=== PATIENT | male | born 1980 | race Caucasian/White ===

== ENCOUNTER 2019-02-23 11:02 | Emergency (ER) | payer MEDICAID, SELFPAY ==
[2019-02-23] VITALS (32 sets, daily range): BP systolic 104–118; BP diastolic 36–75; PULSE 47–81; RESP 11–32; TEMP 36.5; O2SAT 95–98
[2019-02-23] MEDS: Lidocaine 5% Patch 1 PATCH TP (11:09)
--- NOTE | 2019-02-23 11:21 | W.ED.GENAD ---
Discharge Plan Discharge Details Chief Complaint: FlankPain Primary Care Provider: Emelia Head ED Provider: Minh Epperson Home Meds and New Rx's Prescriptions: No Action dexmethylphenidate [Focalin XR] 30 MG capsule,ER biphasic 50-50 30 mg PO DAILY RF: 0 gabapentin 300 MG capsule 300 mg PO BID RF: 0 buprenorphine-naloxone [Suboxone] 1 EACH film 8 mg Sublingual DAILY RF: 0 Medical Decision Making 11:25 --38-year-old male here with left lateral flank and chest wall pain after mechanical fall from standing to the floor last night. Patient is quite tender along his left lateral lower ribs. Also notably uncomfortable on deep palpation of his left upper quadrant. Patient does have ecchymosis left lower back. Given Willis Collado sign and tenderness, I am concerned about retroperitoneal hemorrhage. Plan to obtain CT of the chest abdomen and pelvis to assess for acute traumatic surgical pathology. Lidocaine applied. We will give Tylenol. 14:05 --CT of the chest and abdomen pelvis interpreted by radiology: IMPRESSION: Fracture of the left eleventh rib. No evidence of pneumothorax or internal organ injury. Mild compression of anterosuperior endplate of T 9 appears old. Patient reassessed: He has remained stable here in the emergency department. Diagnostic results were reviewed with the patient. Patient will be provided incentive spirometry. Patient instructed to take Tylenol and ibuprofen. I will prescribe lidocaine patches. Patient was encouraged to follow-up with his primary care physician. Usual and customary discharge instructions were provided. Lab Data Lab results reviewed: Yes I reviewed the patient's lab results. Laboratory Tests Range/Units 02/23/19 02/23/19 11:35 13:35 WBC (4.4-10.8) k/cumm 5.56 RBC (4.50-6.00) m/cumm 4.93 Hgb (13.5-17.5) g/dL 14.5 Hct (40.0-50.0) % 42.3 MCV (80-95) fL 85.8 MCH (27.0-33.0) pg 29.4 MCHC (32.0-36.0) g/dL 34.3 RDW (11.8-14.1) % 12.9 Plt Count (130-400) x1000/uL 147 MPV (8.0-11.0) fL 9.7 Immature Gran % 0.4 Neutrophils % 49.2 Lymphocytes % 28.8 Monocytes % 16.0 Eosinophils % 4.7 Basophils % 0.9 Absolute Neutrophils (1.2-6.7) k/cumm 2.74 Absolute Lymphocytes (1.2-3.4) k/cumm 1.60 Absolute Monocytes (0.11-0.7) k/cumm 0.89 H Absolute Eosinophils (0.0-0.7) k/cumm 0.26 Absolute Basophils (0.0-0.2) k/cumm 0.05 Sodium (136-145) mmol/L 141 Potassium (3.5-5.1) mmol/L 4.3 Chloride (98-107) mmol/L 104 Carbon Dioxide (21.0-32.0) mmol/L 28.0 Anion Gap (3-11) mmol/L 9.0 BUN (7-18) mg/dL 11 Creatinine (0.70-1.30) mg/dL 1.03 Estimated GFR/1.73 m2 (mL/min/1.73m2) >= 60.00 Glucose (70-100) mg/dL 95 Calcium (8.5-10.1) mg/dL 8.9 Total Bilirubin (0.2-1.0) mg/dL 0.6 AST (15-37) U/L 16 ALT (12-78) U/L 25 Alkaline Phosphatase (46-116) U/L 88 Total Protein (6.4-8.2) g/dL 6.9 Albumin (3.4-5.0) g/dL 3.6 HPI General Mode of arrival: EMS. Date/Time Provider Initiated Documentation: 02/23/19 11:04. Limitations to Documentation: no limitations. Information obtained by: patient and EMS. HPI Narrative: 38-year-old male presents with chief complaint of left lateral chest wall pain. Pain started last night when he tripped over a rug in the bathroom and fell and hit his left lateral chest wall on the bathtub. Pain is severe. Pain worse with deep inspiration and on palpation of his left lateral chest. He has some associated shortness of breath because is not able to take a deep breath. He denies abdominal pain. No head injury. No other injuries. Related Data Home Medications Medication Instructions Recorded Confirmed dexmethylphenidate [Focalin XR] 30 mg PO DAILY tab-cap 02/17/18 03/23/18 buprenorphine-naloxone [Suboxone] 8 mg SUBLINGUAL DAILY 03/17/18 03/23/18 gabapentin 300 mg PO BID 03/17/18 03/23/18 Allergies Allergy/AdvReac Type Severity Reaction Status Date / Time No Known Allergies Allergy Unverified 03/17/18 11:47 General Stated Complaint: FlankPain TIMOTHY: 3 Review of Systems Review of Systems All systems reviewed & are unremarkable except as noted in HPI and below Respiratory Reports as per HPI Gastrointestinal Denies abdominal pain PFSH Social History Smoking/Tobacco Use Status: Current every day Tobacco Type: cigarettes Drug use: Daily Substance use type: does not use Do you feel safe in your relationship?: Yes Exam Const General: cooperative and no acute distress HENMT Head: normocephalic and atraumatic Mouth: moist mucous membranes Eyes EOM: EOM intact bilaterally Neck Neck: trachea midline and supple Chest Chest: no crepitus and tenderness rib (Left lower lateral ribs) Resp Auscultation: clear to auscultation bilaterally, no rales, no rhonchi and no wheezes Cardio Jugular venous pressure: no JVD Rate: regular rate and not tachycardic Rhythm: regular rhythm GI Palpation: soft, not firm, no guarding, no masses, not rigid and nontender Back/Spine/Pelvis Back: Ly-Collado sign present (left lower lateral) Thoracic/Lumbar Spine: thoracic and lumbar spine normal to inspection Skin General skin exam: no rashes or lesions noted Neuro General: alert, awake, oriented x3 and tone normal Psych Appearance: grossly normal Course Vital Signs Temperature 36.5 C 02/23/19 11:02 Pulse 71 02/23/19 11:02 Respiratory Rate 16 02/23/19 11:02 Blood Pressure 104/71 02/23/19 11:02 Temperature 36.5 C 02/23/19 11:02 Temperature Source Temporal Artery Scan 02/23/19 11:02 Pulse 71 02/23/19 11:02 Respiratory Rate 16 02/23/19 11:02 Respiratory Effort Non-Labored 02/23/19 11:02 Blood Pressure 104/71 02/23/19 11:02 Oxygen Delivery Method Room Air 02/23/19 11:02 Oxygen Flow Rate 0 02/23/19 11:02
[2019-02-23] MEDS: Acetaminophen 325 MG TAB 650 MG PO (11:24)
[2019-02-23] MEDS: Ibuprofen 600 MG TAB PO (11:25)
--- NOTE | 2019-02-23 11:27 | ED.GENADUL_ITS ---
Discharge Plan Discharge Details Chief Complaint: FlankPain Primary Care Provider: Emelia Head ED Provider: Minh Epperson Home Meds and New Rx's Prescriptions: No Action dexmethylphenidate [Focalin XR] 30 MG capsule,ER biphasic 50-50 30 mg PO DAILY RF: 0 gabapentin 300 MG capsule 300 mg PO BID RF: 0 buprenorphine-naloxone [Suboxone] 1 EACH film 8 mg Sublingual DAILY RF: 0 Medical Decision Making 11:25 --38-year-old male here with left lateral flank and chest wall pain after mechanical fall from standing to the floor last night. Patient is quite tender along his left lateral lower ribs. Also notably uncomfortable on deep palpation of his left upper quadrant. Patient does have ecchymosis left lower back. Given Willis Collado sign and tenderness, I am concerned about retroperitoneal hemorrhage. Plan to obtain CT of the chest abdomen and pelvis to assess for acute traumatic surgical pathology. Lidocaine applied. We will give Tylenol. 14:05 --CT of the chest and abdomen pelvis interpreted by radiology: IMPRESSION: Fracture of the left eleventh rib. No evidence of pneumothorax or internal organ injury. Mild compression of anterosuperior endplate of T 9 appears old. Patient reassessed: He has remained stable here in the emergency department. Diagnostic results were reviewed with the patient. Patient will be provided incentive spirometry. Patient instructed to take Tylenol and ibuprofen. I will prescribe lidocaine patches. Patient was encouraged to follow-up with his [facility] physician. Usual and customary discharge instructions were provided. Lab Data Lab results reviewed: Yes I reviewed the patient's lab results. Laboratory Tests Range/Units 02/23/19 02/23/19 11:35 13:35 WBC (4.4-10.8) k/cumm 5.56 RBC (4.50-6.00) m/cumm 4.93 Hgb (13.5-17.5) g/dL 14.5 Hct (40.0-50.0) % 42.3 MCV (80-95) fL 85.8 MCH (27.0-33.0) pg 29.4 MCHC (32.0-36.0) g/dL 34.3 RDW (11.8-14.1) % 12.9 Plt Count (130-400) x1000/uL 147 MPV (8.0-11.0) fL 9.7 Immature Gran % 0.4 Neutrophils % 49.2 Lymphocytes % 28.8 Monocytes % 16.0 Eosinophils % 4.7 Basophils % 0.9 Absolute Neutrophils (1.2-6.7) k/cumm 2.74 Absolute Lymphocytes (1.2-3.4) k/cumm 1.60 Absolute Monocytes (0.11-0.7) k/cumm 0.89 H Absolute Eosinophils (0.0-0.7) k/cumm 0.26 Absolute Basophils (0.0-0.2) k/cumm 0.05 Sodium (136-145) mmol/L 141 Potassium (3.5-5.1) mmol/L 4.3 Chloride (98-107) mmol/L 104 Carbon Dioxide (21.0-32.0) mmol/L 28.0 Anion Gap (3-11) mmol/L 9.0 BUN (7-18) mg/dL 11 Creatinine (0.70-1.30) mg/dL 1.03 Estimated GFR/1.73 m2 (mL/min/1.73m2) >= 60.00 Glucose (70-100) mg/dL 95 Calcium (8.5-10.1) mg/dL 8.9 Total Bilirubin (0.2-1.0) mg/dL 0.6 AST (15-37) U/L 16 ALT (12-78) U/L 25 Alkaline Phosphatase (46-116) U/L 88 Total Protein (6.4-8.2) g/dL 6.9 Albumin (3.4-5.0) g/dL 3.6 HPI General Mode of arrival: EMS . Date/Time Provider Initiated Documentation: 02/23/19 11:04 . Limitations to Documentation: no limitations . Information obtained by: patient and EMS . HPI Narrative: 38-year-old male presents with chief complaint of left lateral chest wall pain. Pain started last night when he tripped over a rug in the bathroom and fell and hit his left lateral chest wall on the bathtub. Pain is severe. Pain worse with deep inspiration and on palpation of his left lateral chest. He has some associated shortness of breath because is not able to take a deep breath. He denies abdominal pain. No head injury. No other injuries. Related Data Home Medications Medication Instructions Recorded Confirmed dexmethylphenidate [Focalin XR] 30 mg PO DAILY tab-cap 02/17/18 03/23/18 buprenorphine-naloxone [Suboxone] 8 mg SUBLINGUAL DAILY 03/17/18 03/23/18 gabapentin 300 mg PO BID 03/17/18 03/23/18 Allergies Allergy/AdvReac Type Severity Reaction Status Date / Time No Known Allergies Allergy Unverified 03/17/18 11:47 General Stated Complaint: FlankPain TIMOTHY: 3 Review of Systems Review of Systems All systems reviewed & are unremarkable except as noted in HPI and below Respiratory Reports as per HPI Gastrointestinal Denies abdominal pain PFSH Social History Smoking/Tobacco Use Status: Current every day Tobacco Type: cigarettes Drug use: Daily Substance use type: does not use Do you feel safe in your relationship?: Yes Exam Const General: cooperative and no acute distress HENMT Head: normocephalic and atraumatic Mouth: moist mucous membranes Eyes EOM: EOM intact bilaterally Neck Neck: trachea midline and supple Chest Chest: no crepitus and tenderness rib (Left lower lateral ribs) Resp Auscultation: clear to auscultation bilaterally, no rales, no rhonchi and no wheezes Cardio Jugular venous pressure: no JVD Rate: regular rate and not tachycardic Rhythm: regular rhythm GI Palpation: soft, not firm, no guarding, no masses, not rigid and nontender Back/Spine/Pelvis Back: Ly-Collado sign present (left lower lateral) Thoracic/Lumbar Spine: thoracic and lumbar spine normal to inspection Skin General skin exam: no rashes or lesions noted Neuro General: alert, awake, oriented x3 and tone normal Psych Appearance: grossly normal Course Vital Signs Temperature 36.5 C 02/23/19 11:02 Pulse 71 02/23/19 11:02 Respiratory Rate 16 02/23/19 11:02 Blood Pressure 104/71 02/23/19 11:02 Temperature 36.5 C 02/23/19 11:02 Temperature Source Temporal Artery Scan 02/23/19 11:02 Pulse 71 02/23/19 11:02 Respiratory Rate 16 02/23/19 11:02 Respiratory Effort Non-Labored 02/23/19 11:02 Blood Pressure 104/71 02/23/19 11:02 Oxygen Delivery Method Room Air 02/23/19 11:02 Oxygen Flow Rate 0 02/23/19 11:02
[2019-02-23 11:40] LABS: Abs Immature Grans 0.02 k/cumm (0.0-0.09); Absolute Basophil Count 0.05 k/cumm (0.0-0.2); Absolute Eosinophil Count 0.26 k/cumm (0.0-0.7); Absolute Monocyte Count 0.89 k/cumm (0.11-0.7); Absolute Neutrophil Count 2.74 k/cumm (1.2-6.7); Basophils % 0.9; Eosinophils % 4.7; HCT 42.3 % (40.0-50.0); HGB 14.5 g/dL (13.5-17.5); Immature Grans % 0.4; Lymphocytes % 28.8; Mean Corp. HGB Concentration 34.3 g/dL (32.0-36.0); Mean Corpuscular Hemoglobin 29.4 pg (27.0-33.0); Mean Corpuscular Volume 85.8 fL (80-95); Mean Platelet Volume 9.7 fL (8.0-11.0); Neutrophils % 49.2; Platelet Count 147 x1000/uL (130-400); RBC 4.93 m/cumm (4.50-6.00); RBC Distribution Width 12.9 % (11.8-14.1); White Blood Cell Count 5.56 k/cumm (4.4-10.8)
[2019-02-23 11:56] LABS: ALT 25 U/L (12-78); AST 16 U/L (15-37); Albumin 3.6 g/dL (3.4-5.0); Alkaline Phosphatase 88 U/L (46-116); BUN 11 mg/dL (7-18); Bilirubin, Total 0.6 mg/dL (0.2-1.0); CREATININE 1.03 mg/dL (0.70-1.30); Calcium 8.9 mg/dL (8.5-10.1); Chloride 104 mmol/L (98-107); Glucose 95 mg/dL (70-100); Potassium 4.3 mmol/L (3.5-5.1); Sodium 141 mmol/L (136-145); Total Protein 6.9 g/dL (6.4-8.2)
--- NOTE | 2019-02-23 13:04 | DI.CT_ITS ---
SYMPTOM/DIAGNOSIS: FELL, LT LATERAL RIB AND FLANK PAIN, ECCHYMOSIS CHEST, ABDOMEN AND PELVIC CT: Comparison is made with abdomen and pelvic CT of 12/09/11. The heart size is normal. The heart and great vessels appear intact. There are no pleural or pericardial effusions. There is no pneumothorax or pulmonary contusion. There is a fracture of the posterior left eleventh rib which is only slightly displaced. The spleen and left kidney appear intact. There is no significant hematoma in the soft tissues. The liver, gallbladder, pancreas, adrenals and right kidney are unremarkable. There is no bowel dilatation or wall thickening. The appendix appears normal. The bladder and prostate are unremarkable. There is mild compression of the superior endplate of T 9. No fracture lines are seen and there is increased sclerosis suggesting that this is an old finding. There is no retropulsion posteriorly. There is bulging of the L 4-5 disc. The remaining discs are unremarkable. IMPRESSION: Fracture of the left eleventh rib. No evidence of pneumothorax or internal organ injury. Mild compression of anterosuperior endplate of T 9 appears old.
== END 2019-02-23 14:54 | disposition home or self-care (01) ==
PROVIDERS: Emergency Provider Student in an Organized Health Care Education/Training Program; PCP Nurse Practitioner Family
DX: S22.32XA Fracture of one rib, left side, initial encounter for closed fracture (principal); S30.0XXA Contusion of lower back and pelvis, initial encounter; W01.0XXA Fall on same level from slipping, tripping and stumbling without subsequent striking against object, initial encounter
CPT/HCPCS: 36415; 74177; 80053; 99285; 71260; 85025; 99284

== ENCOUNTER 2019-07-03 06:46 | Inpatient (IN) | payer MEDICAID, SELFPAY ==
[2019-07-03] VITALS (130 sets, daily range): BP systolic 86–181; BP diastolic 48–133; PULSE 62–169; RESP 0–30; TEMP 36.3–39.3; O2SAT 90–100
--- NOTE | 2019-07-03 06:50 | DI.RAD_ITS ---
EXAM: XR TIB/FIB RT INDICATION: intoxicated, right knee and tib/fib pain. COMPARISON: No exams were available for comparison TECHNIQUE: 2D digital imaging was performed. FINDINGS: No fracture is identified. The knee and ankle are unremarkable as visualized. There are mild degen erative changes. IMPRESSION: No acute abnormality.
--- NOTE | 2019-07-03 06:50 | DI.RAD_ITS ---
EXAM: XR KNEE RT 3V AP,LAT,CLAUDIO INDICATION: intoxicated, right knee and tib/fib pain. COMPARISON: No exams were available for comparison TECHNIQUE: 2D digital imaging was performed. FINDINGS: No fracture or joint effusion is seen. The joint spaces are well maintained. There are minimal dege nerative changes. IMPRESSION: Minimal degenerative changes. No acute abnormality.
--- NOTE | 2019-07-03 06:52 | DI.RAD_ITS ---
EXAM: XR PORTABLE CHEST AP INDICATION: altered. COMPARISON: None. TECHNIQUE: 2D digital imaging was performed. FINDINGS: An endotracheal tube has been inserted with the tip at the level of the clavicles. A nasogastric tub e projects in the region of the GE junction. The lungs are not well inflated. There is mild basilar atelectasis. No pneumothorax or effusion is seen. IMPRESSION: Mild basilar atelectasis. Satisfactory position of endotracheal tube. The nasogastric tube should b e advanced.
--- NOTE | 2019-07-03 06:53 | W.ED.GENAD ---
Discharge Plan Disposition Patient Disposition: [facility] INPATIENT Condition: Stable Discharge Details Chief Complaint: GenMedical Clinical Impression: Polysubstance abuse, Pneumonia involving right lung Admit Date/Time: 07/03/19 09:53 Admit Provider: Allyson Nice Attending Provider: Allyson Nice Primary Care Provider: Emelia Head ED Provider: Martinez Thomas Discharge Data Discharge Date/Time-TO BE ENTERED AT DEPARTURE: 07/03/19 11:16 Medical Decision Making <Tulio Matthews DO - Last Filed: 07/03/19 08:19> This is a 38-year-old male past medical history of ADHD narcotic and alcohol abuse, who presents today notably altered. Contacted the police stating that he fell and may have had alcohol in his system. When EMS arrived he was confrontational both physically and verbally. He was eventually convinced to come to the ED. In the ED he complains of pain in his right leg, appears notably altered, concerning to be under the influence of a disassociative psychedelic. During his stay in the ED within just a minute of arrival he became again physically confrontational, refused medical screening assessment, was unable to walk and kept falling. Because of this and for his own safety he initially attempted Benadryl, Haldol, and Ativan were given IM, patient did not have any significant response to this. Multiple attempts were made to restrain the patient for his safety, however he kept pulling out of the restraints, and clearly was a threat to himself and others. Because of this ketamine was given, initially at 80 mg IM dose which allowed for us to establish an IV, draw blood, and straight cath. Fortunately he was in no way complacent enough to have CT scan. And additional 40 mg were given IV. We will evaluate for acute intracranial abnormality. Will rehydrate, monitor closely, and evaluate for acute life-threatening etiologies. 7:45 AM Even in spite of ketamine the patient continued to become confrontational notably challenging. We are unable to get him to CT scan due to the patient's continued excessive movements and responsiveness. Because of this the decision was chosen to electively intubate for continued protection of the patient, staff, and to complete a medical evaluation on the patient as at this time we are uncertain if there is any potential life-threatening etiology going on. Patient was intubated successfully. Of note the patient had a notably tight vocal cord space, an initial attempt was performed with a 7.5 endotracheal tube, however repeat attempt was required with a smaller 7.0 endotracheal tube. Patient will be sent for imaging and for his work-up. Case will be signed out to my colleague Dr. Martinez Thomas for continued management. Procedure: Endotracheal Intubation Indication: Patient safety, need for sedation, altered mental status A time-out was completed verifying correct patient, procedure, site, positioning, and special equipment if applicable. The patient was placed in a flat position. Sedation was obtained using ketamine and paralysis was obtained using Rocuronium 100mg. The patient was easily ventilated using an ambu bag. The [employer] was used and inserted into the oropharynx at which time there was a Grade 1 view of the vocal cords. A 7.5-telugu endotracheal tube was attempted to be inserted however there was notable stress and tightness not allowing for the 7.5 endotracheal tube to be passed through the cords. Repeat evaluation was performed and attempted with bougie, however the obstacle remained. Patient was then subsequently bagged up from 97% to 100%. Repeat attempt was performed using a 7.0 endotracheal tube. This did pass through the cords but there was some mild resistance noted. Inserted and visualized going through the vocal cords. The stylette was removed. Colorimetric change was visualized on the CO2 meter. Breath sounds were heard in both lung [place] equally. The endotracheal tube was placed at 23 cm, measured at the teeth. A chest x-ray was ordered to assess for pneumothorax and verify endotrachealtube placement. No pneumothorax was seen and tube was in good position. The patient tolerated the procedure well and there were no complications. <Martinez Thomas MD - Last Filed: 07/03/19 11:46> Received signout from Dr. Matthews. Please see his note regarding details of the presentation, management, plan of care. Patient intubated and sedated, transported with nursing staff to radiology suite. Images: Right base pneumonia, healed rib fracture. Abdomen pelvis unremarkable. Head and cervical spine unremarkable. ET tube noted to be riding high. Finally, a single linear defect on single view at tibiofibular joint and will place in straight leg brace pending reevaluation when more clinically appropriate. Labs show an elevated white blood cell count of 14.9, she had elevated ammonia of 45, alcohol of 6, urinalysis with leuk esterase, few bacteria and white blood cells. U tox with cocaine and alcohol. Likely his presenting delirium and agitation are predominantly due to substance abuse, must exclude infection (UTI) and patient given ceftriaxone as well as clindamycin for coverage of probable aspiration pneumonia. Lab Data Lab results reviewed: Yes I reviewed the patient's lab results. Labs: Laboratory Results - last 24 hr 07/03/19 07/03/19 07/03/19 07:10 07:10 07:10 WBC RBC Hgb Hct MCV MCH MCHC RDW Plt Count MPV Immature Gran % Neutrophils % Lymphocytes % Monocytes % Eosinophils % Basophils % Absolute Neutrophils Absolute Lymphocytes Absolute Monocytes Absolute Eosinophils Absolute Basophils PT INR APTT VBG pH VBG pCO2 VBG pO2 VBG HCO3 VBG Total CO2 VBG O2 Saturation VBG Base Excess Sodium 141 Potassium 3.7 Chloride 104 Carbon Dioxide 25.4 Anion Gap 11.6 H BUN 14 Creatinine 1.31 H Estimated GFR/1.73 m2 >= 60.00 Glucose 92 Calcium 8.7 Total Bilirubin 0.6 AST 27 ALT 26 Alkaline Phosphatase 77 Ammonia 45 H Total Protein 7.7 Albumin 4.2 Urine Color Urine Clarity Urine pH Ur Specific [place] Urine Protein Urine Ketones Urine Blood Urine Nitrite Urine Bilirubin Urine Urobilinogen Ur Leukocyte Esterase Urine RBC Urine WBC Ur Epithelial Cells Urine Crystals Urine Bacteria Urine Casts Urine Mucus Ur Culture Indicated? Urine Glucose Salicylates 4.3 Urine Opiates Screen Urine Methadone Screen Acetaminophen < 2 L Ur Barbiturates Screen Ur Tricyclics Screen Ur Amphetamines Screen U Benzodiazepines Scrn Urine Cocaine Screen Ur THC Screen Ethyl Alcohol 6.2 07/03/19 07/03/19 07/03/19 07:10 07:10 07:22 WBC 14.90 H RBC 5.17 Hgb 14.9 Hct 43.7 MCV 84.5 MCH 28.8 MCHC 34.1 RDW 13.6 Plt Count 206 MPV 9.6 Immature Gran % 0.1 Neutrophils % 55.8 Lymphocytes % 33.1 Monocytes % 9.1 Eosinophils % 1.4 Basophils % 0.5 Absolute Neutrophils 8.31 H Absolute Lymphocytes 4.93 H Absolute Monocytes 1.36 H Absolute Eosinophils 0.21 Absolute Basophils 0.07 PT 10.6 INR 1.1 APTT 27.2 VBG pH 7.42 VBG pCO2 41 VBG pO2 34 VBG HCO3 27 VBG Total CO2 24 VBG O2 Saturation 74 VBG Base Excess 2.4 Sodium Potassium Chloride Carbon Dioxide Anion Gap BUN Creatinine Estimated GFR/1.73 m2 Glucose Calcium Total Bilirubin AST ALT Alkaline Phosphatase Ammonia Total Protein Albumin Urine Color Urine Clarity Urine pH Ur Specific [place] Urine Protein Urine Ketones Urine Blood Urine Nitrite Urine Bilirubin Urine Urobilinogen Ur Leukocyte Esterase Urine RBC Urine WBC Ur Epithelial Cells Urine Crystals Urine Bacteria Urine Casts Urine Mucus Ur Culture Indicated? Urine Glucose Salicylates Urine Opiates Screen Urine Methadone Screen Acetaminophen Ur Barbiturates Screen Ur Tricyclics Screen Ur Amphetamines Screen U Benzodiazepines Scrn Urine Cocaine Screen Ur THC Screen Ethyl Alcohol 07/03/19 07/03/19 08:00 08:00 WBC RBC Hgb Hct MCV MCH MCHC RDW Plt Count MPV Immature Gran % Neutrophils % Lymphocytes % Monocytes % Eosinophils % Basophils % Absolute Neutrophils Absolute Lymphocytes Absolute Monocytes Absolute Eosinophils Absolute Basophils PT INR APTT VBG pH VBG pCO2 VBG pO2 VBG HCO3 VBG Total CO2 VBG O2 Saturation VBG Base Excess Sodium Potassium Chloride Carbon Dioxide Anion Gap BUN Creatinine Estimated GFR/1.73 m2 Glucose Calcium Total Bilirubin AST ALT Alkaline Phosphatase Ammonia Total Protein Albumin Urine Color Yellow Urine Clarity Clear Urine pH 5.5 Ur Specific [place] 1.025 Urine Protein Negative Urine Ketones Negative Urine Blood Negative Urine Nitrite Negative Urine Bilirubin Negative Urine Urobilinogen 0.2 Ur Leukocyte Esterase Trace H Urine RBC Negative Urine WBC 3-5 Ur Epithelial Cells Few Urine Crystals Negative Urine Bacteria Few Urine Casts Negative Urine Mucus Moderate Ur Culture Indicated? Yes Urine Glucose Negative Salicylates Urine Opiates Screen Negative Urine Methadone Screen Negative Acetaminophen Ur Barbiturates Screen Negative Ur Tricyclics Screen Negative Ur Amphetamines Screen Negative U Benzodiazepines Scrn Negative Urine Cocaine Screen Positive A Ur THC Screen Positive A Ethyl Alcohol ECG Data Attestation: I personally reviewed and interpreted this ECG (s) as follows: Interpretation: Sinus tachycardia, rate of 104, the QRS is narrow, MT interval unremarkable, no ST segment elevation present HPI <Tulio Matthews DO - Last Filed: 07/03/19 08:19> General Date/Time Provider Initiated Documentation: 07/03/19 06:46. HPI Narrative: This is a 38-year-old male with a past medical history of narcotic drug abuse, ADHD, who is a notably poor historian who presents tonight via EMS after calling the police on himself. Patient states that he was drunk, fell, he also stated that he may or may not have had a seizure. He does have a history of alcoholism. When EMS arrived he was notably confrontational, he is complaining of pain in his right tib-fib area. He was both physically and verbally confrontational. He was eventually brought by EMS to the ED. Here he is both poor historian, notably under the influence of what I suspect to be alcohol and other illicit drugs. Complains of pain in his right leg, does also repeatedly hitting his ears. No other complaints, limited history. Related Data Home Medications Medication Instructions Recorded Confirmed dexmethylphenidate [Focalin XR] 30 mg PO DAILY tab-cap 02/17/18 02/23/19 gabapentin 300 mg PO BID 03/17/18 02/23/19 lidocaine 1 patch TP DAILY #15 each 02/23/19 Previous Rx's Medication Instructions Recorded lidocaine 1 patch TP DAILY #15 each 02/23/19 Allergies Allergy/AdvReac Type Severity Reaction Status Date / Time No Known Allergies Allergy Unverified 02/23/19 14:25 General TIMOTHY: 3 Review of Systems <Tulio Matthews DO - Last Filed: 07/03/19 08:19> All systems reviewed & are unremarkable except as noted in HPI and below PFSH <Tulio Matthews DO - Last Filed: 07/03/19 08:19> Medical History (Updated 07/03/19 @ 10:53 by Allyson Nice MD) ADHD (Chronic) Alcohol abuse (Chronic) Cocaine abuse (Chronic) Narcotic abuse (Chronic) Surgical History (Updated 07/03/19 @ 10:41 by Allyson Nice MD) H/O umbilical hernia repair (Acute) Family History (Updated 07/03/19 @ 10:41 by Allyson Nice MD) Other Family history unobtainable due to patient's condition Social History Smoking/Tobacco Use Status: Current every day Tobacco Type: cigarettes Drug use: Daily Substance use type: does not use Do you feel safe in your relationship?: Yes Exam <Tulio Matthews DO - Last Filed: 07/03/19 08:19> Narrative Exam Narrative: 1.Const: Disheveled, notably under the influence/altered 2.Eyes: PERRL, no conjunctival injection, and symmetrical lids. 3.ENT: Atraumatic external nose and ears. Moist MM. Neck: Symmetric, trachea midline, No thyromegaly. 4.CVS: +S1/S2, No murmurs or gallops. Peripheral pulses 2+ and equal in all extremities. Brisk capillary refill in all extremities. 5.RESP: Unlabored respiratory effort. Clear to auscultation bilaterally. No wheezes rales or rhonchi 6.GI: Soft, Nontender/Nondistended, No hepatosplenomegaly. No guarding or rebound. 7.MSK: Notable tenderness over the right tib-fib. No evidence of deformity. Mild bruising. No evidence of significant trauma to the left leg, the upper extremities, the head face neck or back. 8.Skin: Warm, Dry. Please see musculoskeletal. 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 Sensation grossly intact, no focal neurologic deficits. 10.Psych: Notably altered, coherent, but clearly confused. Sign Out <Tulio Matthews DO - Last Filed: 07/03/19 08:19> Sign Out Data: Sign Out Comment: Pending CT imaging, x-ray imaging, laboratory work-up. Last updated by Tulio Matthews DO at 07/03/19 08:16
[2019-07-03] MEDS: Haloperidol 5 MG/ML VIAL IM (06:55)
[2019-07-03] MEDS: diphenhydrAMINE 50 MG/ML VIAL (07:00)
[2019-07-03] MEDS: diphenhydrAMINE 50 MG/ML VIAL 25 MG IM (07:00)
[2019-07-03] MEDS: Ketamine 500 MG/10 ML VIAL (07:07)
--- NOTE | 2019-07-03 07:09 | DI.CT_ITS ---
EXAM: CT HEAD CERVICAL SPINE WO CLINICAL HISTORY: altered, trauma TECHNIQUE: Noncontrast COMPARISON: HEAD AND CSPINE W/O CONTRAST from 12/03/2017 FINDINGS: HEAD: An endotracheal tube and nasogastric tube are noted. There is a mucous retention within the e thmoid sinuses and nasal cavity. There is mucous retention in the left maxillary sinus. The mastoid air cells appear clear. No intracranial hemorrhage, mass or infarct is seen. C-SPINE: A nasogastric tube and endotracheal tube are seen. There is no prevertebral soft tissue swel ling. There is no evidence of fracture. Degenerative disc changes are seen at C 6-7. Some debris with in the nasopharynx and oropharynx,likely related to intubation. IMPRESSION: Debris within nasopharynx and oropharynx related to recent intubation. No evidence of fracture.
--- NOTE | 2019-07-03 07:16 | NUR.NOTE ---
On arrival pt became agitated, attempted to elope. Unsteady on feet. Encouraged to return to room, pt refused. Assisted to stretcher by staff, consumer loan processor and EMS. Med with 5mg haldol IM, placed in 4 point restraints. Pt continued to be agitated, med with 2 mg ativan IM , 50mg benadryl IM. Moved to room 1, clothing cut off pt. Continues to yell out, requiring multiple staff to remain in room with pt. #20 LAC, labs drawn.
[2019-07-03] MEDS: Ketamine 500 MG/10 ML VIAL 80 MG IVP (07:20)
[2019-07-03 07:21] LABS: Abs Immature Grans 0.02 k/cumm (0.0-0.09); Absolute Basophil Count 0.07 k/cumm (0.0-0.2); Absolute Eosinophil Count 0.21 k/cumm (0.0-0.7); Absolute Lymphocyte Count 4.93 k/cumm (1.2-3.4); Absolute Monocyte Count 1.36 k/cumm (0.11-0.7); Absolute Neutrophil Count 8.31 k/cumm (1.2-6.7); Basophils % 0.5; Eosinophils % 1.4; HCT 43.7 % (40.0-50.0); HGB 14.9 g/dL (13.5-17.5); Immature Grans % 0.1; Lymphocytes % 33.1; Mean Corp. HGB Concentration 34.1 g/dL (32.0-36.0); Mean Corpuscular Hemoglobin 28.8 pg (27.0-33.0); Mean Corpuscular Volume 84.5 fL (80-95); Mean Platelet Volume 9.6 fL (8.0-11.0); Monocytes % 9.1; Neutrophils % 55.8; Platelet Count 206 x1000/uL (130-400); RBC 5.17 m/cumm (4.50-6.00); RBC Distribution Width 13.6 % (11.8-14.1)
[2019-07-03 07:26] LABS: BE (Venous) 2.4 mmol/L (-3-3); HCO3 (Venous) 27 mmol/L (22-28); O2 Sat (Venous) 74 % (70-80); TCO2 (Venous) 24 mmol/L (22-29); pCO2 (Venous) 41 mm/Hg (34-47); pH (Venous) 7.42 (7.32-7.43); pO2 (Venous) 34 mm/Hg (28-44)
[2019-07-03 07:32] LABS: Ammonia 45 umol/L (11-32)
[2019-07-03 07:34] LABS: INR 1.1 (0.9-1.1); PTT Activated 27.2 sec (21.0-31.4); Prothrombin Time 10.6 sec (9.3-11.0)
[2019-07-03 07:35] LABS: ALT 26 U/L (16-63); AST 27 U/L (15-37); Albumin 4.2 g/dL (3.4-5.0); Alkaline Phosphatase 77 U/L (46-116); Anion Gap 11.6 mmol/L (3-11); BUN 14 mg/dL (7-18); Bilirubin, Total 0.6 mg/dL (0.2-1.0); CO2 25.4 mmol/L (21.0-32.0); CREATININE 1.31 mg/dL (0.70-1.30); Calcium 8.7 mg/dL (8.5-10.1); Chloride 104 mmol/L (98-107); ETHANOL BLOOD 6.2 mg/dL (<3); Glucose 92 mg/dL (70-100); Potassium 3.7 mmol/L (3.5-5.1); Sodium 141 mmol/L (136-145); Total Protein 7.7 g/dL (6.4-8.2)
[2019-07-03] MEDS: Normal Saline 1,000 ML 1000 ML IV ×3 (07:35→11:40)
[2019-07-03] MEDS: Rocuronium 50 MG/5 ML SYR 100 MG IVP (07:35)
[2019-07-03] MEDS: PROPOFOL 1,000 MG/100 ML BTL 5.171 MG IVPB (07:41)
--- NOTE | 2019-07-03 07:59 | DI.CT_ITS ---
EXAM: CT CHEST/ABD/PEL W CLINICAL HISTORY: altered TECHNIQUE: Post IV contrast. No oral contrast. COMPARISON: CT CHEST/ABD/PEL W from 02/23/2019 FINDINGS: Chest CT: Nasogastric tube projects in the upper stomach. An endotracheal tube is seen in the upper trachea. There is right lower lobe consolidation. There is debris in the right main bronchus and lo wer lobe bronchi. No mass is visible. There is respiratory motion, greatest at the lung bases. The re is atelectasis at the left lower lobe. No pleural or pericardial effusions are seen. The aorta i s normal in diameter. There is no evidence of adenopathy. Abdominal and Pelvic CT: There is artifact on the images through the upper abdomen due to the positi on of the patient's arms. The liver, gallbladder, spleen, pancreas, kidneys and adrenals are unremar kable. There is no bowel dilatation or inflammatory change. A Basilio catheter is noted in the urinar y bladder, which is decompressed. There is no free air or free fluid. IMPRESSION: Right lower lobe consolidation with debris in the right main bronchus. No acute abnormality in the a bdomen or pelvis.
[2019-07-03 08:08] LABS: Bilirubin Negative (Negative); Blood Negative (Negative); Clarity Clear (Clear); Glucose Negative (Negative); Ketones Negative (Negative); Leukocyte Esterase Trace (Negative); Nitrite Negative (Negative); Specific Gravity 1.025 (1.005-1.025); Urobilinogen 0.2 EU/dL (Up TO 0.2); pH 5.5 (5-8)
[2019-07-03 08:12] LABS: Acetaminophen < 2 ug/mL (10-30); Salicylate 4.3 mg/dL (2.8-20.0)
--- NOTE | 2019-07-03 08:13 | DI.VRAD_ITS ---
PROCEDURE INFORMATION: Exam: XR Chest, 1 View Exam date and time: 07/03/2019 7:51 AM Clinical history: 38 years old, male; Device placement; Ng tube TECHNIQUE: Imaging protocol: XR of the chest Views: 1 view. COMPARISON: CR RIGHT RIBS TO INCLUDE CXR 03/17/2018 1:05 PM FINDINGS: Tubes, catheters and devices: Endotracheal tube tip terminates within the upper third of the thoracic trachea. Non-weighted tip enteric tube side-port is located about the gastroesophageal junction and should be advanced approximately 7 cm. Lungs: Slightly hypoinflated. Minimal bibasilar atelectasis. No consolidation. Pleural space: Unremarkable. No pleural effusion. No pneumothorax. Heart/Mediastinum: Unremarkable. No cardiomegaly. Bones/joints: Unremarkable. IMPRESSION: 1. Nonweighted tip enteric tube side-port is located above the gastroesophageal junction and should be advanced approximately 7 cm. 2. Endotracheal tube tip terminates within the upper third of the thoracic trachea. 3. Lungs are slightly hypoinflated with minimal bibasilar atelectasis. Dictated and Authenticated by: Antolin Matute MD. Ordering:THAI Antunez MD
[2019-07-03 08:22] LABS: *AMPHETAMINES SCREEN URINE Negative (Negative); *BARBITURATES SCREEN URINE Negative (Negative); *BENZODIAZEPINES SCREEN URINE Negative (Negative); Cannabinoids THC POSITIVE (Negative); Cocaine Screen,Urine POSITIVE (Negative); METHADONE URINE SCREEN Negative (Negative); OPIATES URINE SCREEN Negative (Negative)
[2019-07-03 08:24] LABS: Bacteria Few HPF (Negative); C & S Indicated? Yes; Casts Negative LPF (Negative); Crystals Negative HPF (Negative); Epithelial Cells Few HPF (Negative); Mucus Moderate (Negative); RBC Negative (0-2); Tricyclic Antidepressants Negative (Negative)
[2019-07-03] MEDS: LORazepam 2 MG/ML VIAL IVP (08:35)
[2019-07-03] MEDS: Omnipaque 350 MG/ML 100 ML BTL IJ (08:42)
[2019-07-03] MEDS: Rifaximin 550 MG TAB PO (09:23)
[2019-07-03] MEDS: cefTRIAXone 1 GM/50 ML BAG IVPB (09:30)
--- NOTE | 2019-07-03 09:30 | DI.VRAD_ITS ---
PROCEDURE INFORMATION: Exam: CT Chest With Contrast Exam date and time: 07/03/2019 8:32 AM Clinical history: 38 years old, male; Device placement; Gi device and urinary device; Nasogastric tube; Other: Catheter; Ett placement (vent status) TECHNIQUE: Imaging protocol: Computed tomography of the chest with intravenous contrast. COMPARISON: CT CHEST/ABD/PEL W 02/23/2019 12:40 PM FINDINGS: Tubes, catheters and devices: Endotracheal tube terminates at the upper thoracic trachea. Enteric tube side-port located at the gastroesophageal junction and should be advanced at least 7 cm. Lungs: Right posterior lower lobe consolidation with right lower lobe bronchus/bronchiolar endoluminal fluid. There may be some small amount of left bronchus endoluminal fluid with associated mild left posterior lung base consolidation. Pleural space: No pneumothorax. No pleural effusion. Heart: No cardiomegaly. No pericardial effusion. Aorta: No aortic aneurysm. Lymph nodes: No enlarged lymph nodes. Bones/joints: Healed left 11th rib fracture. Partially visualized sclerosis of the left scapula. Soft tissues: Partially visualized soft tissue irregularity of the right hand. IMPRESSION: 1. Right posterior lower lobe consolidation with right lower lobe bronchus/bronchiolar endoluminal fluid. Most compatible with aspiration and/or pneumonia. There is a mild amount of left posterior lung base consolidation with reticular opacification which could represent a similar process of aspiration and/or pneumonia. 2. Endotracheal tube terminates at the upper thoracic trachea. 3. Enteric tube side-port is located at the gastroesophageal junction and should be advanced at least 7 cm. Findings were discussed with Dr. Thomas at 07/03/2019 9:26 AM EDT. PROCEDURE INFORMATION: Exam: CT Abdomen And Pelvis With Contrast Exam date and time: 07/03/2019 8:32 AM Clinical history: 38 years old, male; Device placement; Gi device and urinary device; Nasogastric tube; Other: Catheter; Ett placement (vent status) TECHNIQUE: Imaging protocol: Computed tomography of the abdomen and pelvis with intravenous contrast. COMPARISON: CT CHEST/ABD/PEL W 02/23/2019 12:40 PM FINDINGS: Liver: No mass. Gallbladder and bile ducts: No calcified stones. No ductal dilation. Pancreas: No ductal dilation. Spleen: No splenomegaly. Adrenals: No mass. Kidneys and ureters: No hydronephrosis. No stones. Stomach and bowel: No obstruction. No mucosal thickening. Appendix: No evidence of appendicitis. Intraperitoneal space: No free air. No significant fluid collection. Vasculature: No abdominal aortic aneurysm. Lymph nodes: No enlarged lymph nodes. Bladder: Basilio catheter in place within a decompressed urinary bladder containing nondependent air. Reproductive: Unremarkable as visualized. Bones/joints: Lower lumbar spondylosis. Mild compression of the superior endplate of T9, unchanged. Soft tissues: Nonspecific and unchanged stranding about the umbilical fat IMPRESSION: 1. No acute abdominopelvic CT findings. 2. Please see chest findings above. Dictated and Authenticated by: Antolin Matute MD. Ordering:THAI Antunez MD
[2019-07-03] MEDS: MAGNESIUM SULFATE 8.12 MEQ, MULTIVITAMIN 10 ML, THIAMINE 100 MG, FOLIC ACID 1 MG in Nor... 168.867 MG IV (09:35)
--- NOTE | 2019-07-03 09:35 | DI.VRAD_ITS ---
PROCEDURE INFORMATION: Exam: CT Head Without Contrast Exam date and time: 07/03/2019 8:25 AM Clinical history: 38 years old, male; Altered mental status/memory loss; Other: Intubated TECHNIQUE: Imaging protocol: Computed tomography of the head without contrast. COMPARISON: CT HEAD AND CSPINE W/O CONTRAST 12/03/2017 2:29 PM FINDINGS: Brain: Normal. No hemorrhage. Unremarkable white matter. No mass effect. Ventricles: Normal. No ventriculomegaly. Bones/joints: Unremarkable. No acute fracture. Sinuses: Fluid level within the left maxillary sinus. Mastoid air cells: Visualized mastoid air cells are well aerated. Soft tissues: Unremarkable. Nasal cavity: Floppy debris within the nasopharynx and nasal cavity. IMPRESSION: 1. No acute intracranial abnormality. 2. Nasopharynx/nasal sinus debris and fluid level in the left max or sinus can be seen with intubation and/or enteric tube placement. Findings were discussed with Dr. Thomas at 07/03/2019 9:34 AM EDT. PROCEDURE INFORMATION: Exam: CT Cervical Spine Without Contrast Exam date and time: 07/03/2019 8:25 AM Clinical history: 38 years old, male; Altered mental status/memory loss; Other: Intubated TECHNIQUE: Imaging protocol: Computed tomography images of the cervical spine without contrast. COMPARISON: CT HEAD AND CSPINE W/O CONTRAST 12/03/2017 2:29 PM FINDINGS: Vertebrae: No acute fracture. There is mild cervical kyphosis which could be due to positioning or muscle spasm. The craniocervical junction is maintained. Discs/Spinal canal/Neural foramina: Degenerative disc disease at C6-C7. No spinal stenosis. No neural foraminal narrowing. Soft tissues: Unremarkable. Nasopharynx: Frothy debris within the nasopharynx and oropharynx. Lungs: Lung apices are normal. IMPRESSION: 1. No acute cervical spine findings. 2. Debris within the nasopharynx and oropharynx. Dictated and Authenticated by: Antolin Matute MD. Ordering:THAI Antunez MD
--- NOTE | 2019-07-03 09:38 | DI.VRAD_ITS ---
PROCEDURE INFORMATION: Exam: XR Right Tibia and Fibula Exam date and time: 07/03/2019 8:59 AM Clinical history: 38 years old, male; Pain; Lower leg; Right TECHNIQUE: Imaging protocol: XR Right tibia and fibula. Views: 2 views. COMPARISON: CR XR KNEE RT 3V AP,LAT,CLAUDIO 07/03/2019 8:51 AM FINDINGS: Bones/joints: No acute fracture or dislocation. Osseous mineralization appears normal. Round intracortical sclerotic lesion projects over the anteromedial tibial cortex. Soft tissues: Normal. IMPRESSION: 1. No acute fracture or dislocation. 2. Round intracortical sclerotic lesion projects over the anteromedial tibial cortex. Cannot exclude soft tissue location. Recommend clinical correlation. Dictated and Authenticated by: Antolin Matute MD. Ordering:THAI Antunez MD
--- NOTE | 2019-07-03 09:42 | DI.VRAD_ITS ---
PROCEDURE INFORMATION: Exam: XR Right Knee Exam date and time: 07/03/2019 8:59 AM Clinical history: 38 years old, male; Pain; Lower leg; Right TECHNIQUE: Imaging protocol: XR Right knee. Views: 3 views. COMPARISON: No relevant prior studies available. FINDINGS: Bones/joints: Subtle linear cortical defect visualized at the tibiofibular joint on crosstable lateral which may represent artifact; however, seen on only one view. Otherwise, no evidence for fracture or dislocation. There is a small suprapatellar joint effusion. Soft tissues: Normal. IMPRESSION: Subtle linear cortical defect visualized at the tibiofibular joint on crosstable lateral which may represent artifact; however, seen on only one view. Otherwise, no evidence for fracture or dislocation. There is a small suprapatellar joint effusion. Dictated and Authenticated by: Antolin Matute MD. Ordering:THAI Antunez MD
[2019-07-03] MEDS: LORazepam 2 MG/ML VIAL 1 MG IVP ×2 (09:54→17:04)
[2019-07-03 10:18] LABS: Lactate 1.1 mmol/L (0.6-1.4)
[2019-07-03] MEDS: CLINDAMYCIN 900 MG/50 ML BAG 50 MG IVPB (10:19)
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
[2019-07-03 10:34] LABS: BE 1.4 mmol/L (-3-3); HCO3 26 mmol/L (22-28); pCO2 40 mmHg (34-47); pH 7.42 (7.35-7.45); pO2 64 mmHg (83-108); sO2 95 % (94-98); tCO2 23 mmol/L (22-29)
[2019-07-03 10:36] LABS: Site Right Radial
--- NOTE | 2019-07-03 10:44 | DI.RAD_ITS ---
EXAM: XR PORTABLE CHEST AP POST LINE INDICATION: repeat after tube advancement. COMPARISON: XR PORTABLE CHEST AP from 07/03/2019 TECHNIQUE: 2D digital imaging was performed. FINDINGS: There has been no change in the position of the endotracheal tube. The nasogastric tube has been adva nced which projects in the fundus of the stomach. There are increased densities seen at the right artis ng base compared with the previous exam which could represent atelectasis versus pneumonia. IMPRESSION: Satisfactory placement of NG tube. Right lower lobe atelectasis versus pneumonia.
--- NOTE | 2019-07-03 11:43 | DI.VRAD_ITS ---
PROCEDURE INFORMATION: Exam: XR Chest, 1 View Exam date and time: 07/03/2019 11:04 AM Clinical history: 38 years old, male; Device placement; Ng tube TECHNIQUE: Imaging protocol: XR of the chest Views: 1 view. COMPARISON: XR PORTABLE CHEST AP 07/03/2019 7:[address] CHEST/ABD/PEL W 07/03/2019 8:32:10 AM FINDINGS: Tubes, catheters and devices: Interval advancement of enteric tube now with distal side port likely within stomach. Endotracheal tube tip is about the mid thoracic trachea. Lungs: Right lung hypoinflation with right posterior lower lobe consolidation. Mild left lower lung opacities. Pleural space: No pleural effusion. No pneumothorax. Heart/Mediastinum: No cardiomegaly. Bones/joints: Unremarkable. IMPRESSION: 1. Interval placement of enteric tube which now demonstrates the distal side port within the stomach. 2. Endotracheal tube tip is about the mid thoracic trachea. 3. Right lower lobe aspiration and/or pneumonia. Possible aspiration and/or pneumonia of the left lower lobe versus atelectasis Dictated and Authenticated by: Antolin aMtute MD. Ordering:AZAR Henriuqez MD
[2019-07-03] MEDS: PIPERACILLIN/TAZO 3.375 GM in Normal Saline 50 ML IVPB ×2 (11:50→17:40)
[2019-07-03] MEDS: Heparin 5,000 UNITS/ML VIAL 5000 UNITS SC ×2 (12:23→20:36)
[2019-07-03] MEDS: Normal Saline Flush 10 ML SYR IVP ×2 (12:26→17:04)
[2019-07-03 12:37] LABS: BE -0.5 mmol/L (-3-3); HCO3 24 mmol/L (22-28); pCO2 34 mmHg (34-47); pH 7.45 (7.35-7.45); pO2 98 mmHg (83-108); sO2 99 % (94-98); tCO2 21 mmol/L (22-29)
[2019-07-03 12:39] LABS: Site Right Radial
[2019-07-03] MEDS: Pantoprazole 40 MG VIAL IVP (12:42)
--- NOTE | 2019-07-03 12:57 | NUR.NOTE ---
soft restraints used after intubation so that he will not pull out tube. pt did try to pull tube out several times while et tube was adjusted and he was suctioned and when we moved him in CT scan. Nursing Note:
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
[2019-07-03] MEDS: PROPOFOL 1,000 MG/100 ML BTL 9.308 MG IVPB (17:07)
[2019-07-03] MEDS: Albuterol/Ipratropium 3 ML UPD VIAL UPD (17:14)
[2019-07-03] MEDS: Acetaminophen 650 MG SUPP PR (22:22)
[2019-07-03] MEDS: PROPOFOL 1,000 MG/100 ML BTL 12.927 MG IVPB (22:24)
[2019-07-03] MEDS: Normal Saline 1,000 ML 125 ML IV (22:43)
[2019-07-04] VITALS (142 sets, daily range): BP systolic 86–140; BP diastolic 43–82; PULSE 49–99; RESP 2–97; TEMP 36.3–37.1; O2SAT 93–100
[2019-07-04] MEDS: PIPERACILLIN/TAZO 3.375 GM in Normal Saline 50 ML IVPB ×4 (01:08→18:06)
[2019-07-04] MEDS: Albuterol/Ipratropium 3 ML UPD VIAL UPD ×4 (01:09→19:56)
[2019-07-04] MEDS: PROPOFOL 1,000 MG/100 ML BTL 31.026 MG IVPB ×2 (01:29→14:53)
[2019-07-04] MEDS: Heparin 5,000 UNITS/ML VIAL 5000 UNITS SC ×3 (04:19→19:57)
[2019-07-04] MEDS: Normal Saline 1,000 ML 125 ML IV (04:49)
[2019-07-04] MEDS: PROPOFOL 1,000 MG/100 ML BTL 28.44 MG IVPB ×2 (04:49→07:59)
[2019-07-04] MEDS: Normal Saline Flush 10 ML SYR IVP ×3 (04:50→18:07)
[2019-07-04] MEDS: LORazepam 2 MG/ML VIAL 1 MG IVP ×11 (05:01→22:35)
[2019-07-04 07:03] LABS: Abs Immature Grans 0.02 k/cumm (0.0-0.09); Absolute Basophil Count 0.03 k/cumm (0.0-0.2); Absolute Monocyte Count 0.54 k/cumm (0.11-0.7); Absolute Neutrophil Count 4.59 k/cumm (1.2-6.7); Ammonia 29 umol/L (11-32); Basophils % 0.4; Eosinophils % 1.4; HGB 11.8 g/dL (13.5-17.5); Immature Grans % 0.3; Lymphocytes % 27.5; Mean Corp. HGB Concentration 33.7 g/dL (32.0-36.0); Mean Corpuscular Hemoglobin 28.9 pg (27.0-33.0); Mean Corpuscular Volume 85.6 fL (80-95); Mean Platelet Volume 9.5 fL (8.0-11.0); Monocytes % 7.4; Platelet Count 135 x1000/uL (130-400); RBC 4.09 m/cumm (4.50-6.00); RBC Distribution Width 13.4 % (11.8-14.1); White Blood Cell Count 7.28 k/cumm (4.4-10.8)
[2019-07-04 07:08] LABS: ALT 18 U/L (16-63); AST 32 U/L (15-37); Albumin 2.7 g/dL (3.4-5.0); Alkaline Phosphatase 54 U/L (46-116); Anion Gap 9.3 mmol/L (3-11); BUN 11 mg/dL (7-18); Bilirubin, Direct 0.27 mg/dL (0.00-0.20); Bilirubin, Total 0.7 mg/dL (0.2-1.0); CO2 21.7 mmol/L (21.0-32.0); CREATININE 1.17 mg/dL (0.70-1.30); Calcium 7.7 mg/dL (8.5-10.1); Chloride 110 mmol/L (98-107); Glucose 74 mg/dL (70-100); Potassium 3.4 mmol/L (3.5-5.1); Sodium 141 mmol/L (136-145); Total Protein 5.3 g/dL (6.4-8.2)
--- NOTE | 2019-07-04 08:23 | PGE_ITS ---
Date of Service Date of service: 07/04/19 Time of Service: 10:48 Assessment and Plan Assessment and plan (1) Respiratory failure, acute: Status: Acute Assessment and plan: In part, medication induced due to need to sedate. However, also did aspirate. Failed weaning trial today - will try again tomorrow with precedex if the patient is still agitated/anxious when weaning off propofol. Keep on vent tonight. Continue to treat pneumonia (zosyn day 2). Daily ABG while on vent - today's reviewed, hyperventilating slightly. Sedation today with propofol and prn ativan. Follow up today's CXR - not done yet but radiology is getting contacted. (2) Toxic metabolic encephalopathy: Status: Acute Assessment and plan: Likely substance induced +/- substance withdrawal. Continue propofol with prn ativan and precedex tomorrow for weaning. Consider transfer to a tertiary care facility if fails weaning trial tomorrow. (3) Aspiration pneumonia: Status: Acute Assessment and plan: Continue IV zosyn. Sputum sample obtained. Repeat CXR daily. (4) Right leg pain: Status: Acute Assessment and plan: Orthopedics consulted. Keep in immobilizer. (5) INDIRA (acute kidney injury): Status: Acute Assessment and plan: Slightly better. Continue IVF. Monitor I/O's, daily weights, Cr. (6) Alcohol abuse: Status: Chronic Assessment and plan: Daily banana bag. Propofol/prn ativan for sedation. CIWA once off propofol. (7) Cocaine abuse: Status: Chronic Assessment and plan: Monitor for signs of withdrawal. (8) ADHD: Status: Chronic Assessment and plan: Hold stimulants. (9) DVT prophylaxis: Status: Acute Assessment and plan: Heparin SC while in INDIRA (10) Discharge planning issues: Status: Acute Assessment and plan: Full code Total Critical Care Time 1 hour Subjective Subjective Interval history since last seen: Woke up this am, nodding. Became very anxious and agitated during sedation vacation this morning and could not cooperate with a weaning trial today. He is now back on propofol, overbreathing the vent. Exam Narrative Exam Narrative: General: Middle-aged male, intubated, sedated, arousable to verbal and painful stimuli, but not following commands at this point. HEENT: NGT and ET tubes in place, as is an oral airway; yellowish blood-tinged secretions in ET Tube; Cardiovascular: RRR, no m/r/g Lungs: Ventilator breath sounds with improvement in aeration from yesterday - I am hearing clear breath sounds at right base, and no rales. Gastrointestinal: abdomen is soft, nontender, nondistended Genitourinary: has a garcia Extremities: RLE in knee immobilizer; 1+ pedal pulses B, no c/c. Objective Objective Clinical Data: Abnormal lab results 07/03/19 07/03/19 07/04/19 Range/Units 10:25 12:15 06:39 RBC (4.50-6.00) m/cumm Hgb (13.5-17.5) g/dL Hct (40.0-50.0) % pO2 64 L (83-108) mmHg O2 Saturation 99 H (94-98) % ABG Total CO2 21 L (22-29) mmol/L Potassium 3.4 L (3.5-5.1) mmol/L Chloride 110 H (98-107) mmol/L Calcium 7.7 L (8.5-10.1) mg/dL Conjugated Bilirubin 0.27 H (0.00-0.20) mg/dL Total Protein 5.3 L (6.4-8.2) g/dL Albumin 2.7 L (3.4-5.0) g/dL 07/04/19 Range/Units 06:39 RBC 4.09 L (4.50-6.00) m/cumm Hgb 11.8 L D (13.5-17.5) g/dL Hct 35.0 L (40.0-50.0) % pO2 (83-108) mmHg O2 Saturation (94-98) % ABG Total CO2 (22-29) mmol/L Potassium (3.5-5.1) mmol/L Chloride (98-107) mmol/L Calcium (8.5-10.1) mg/dL Conjugated Bilirubin (0.00-0.20) mg/dL Total Protein (6.4-8.2) g/dL Albumin (3.4-5.0) g/dL Vital Signs Temperature 36.3 C L 07/04/19 08:16 Temperature Source Temporal Artery Scan 07/04/19 08:16 Pulse 55 L 07/04/19 08:16 Pulse 57 L 07/04/19 06:31 Respiratory Rate 18 07/04/19 08:16 Respiratory Effort 07/04/19 08:16 Respiratory Depth Normal 07/04/19 07:52 Respiratory Pattern Normal 07/04/19 07:52 Blood Pressure 98/53 L 07/04/19 07:52 Blood Pressure Mean 68 07/04/19 07:52 Blood Pressure Position Supine 07/04/19 07:52 Pulse Oximetry 98 07/04/19 07:52 Respiratory End-tidal CO2 22 07/04/19 07:35 Oxygen Delivery Method Mechanical Ventilator 07/04/19 07:52 Oxygen Flow Rate 0 07/04/19 07:52 Fraction of Inspired Oxygen (FIO2) 45 07/04/19 07:52 Pain Level 0 07/04/19 07:52 Comment 07/03/19 16:16 Intake & Output 07/03/19 07/03/19 07/04/19 11:59 23:59 10:59 Intake Total 2127.923 / 4417.429 2289.506 / 4417.429 1167.204 / 1167.204 Output Total 430 / 1355 925 / 1355 650 / 650 Balance 1697.923 / 3062.429 1364.506 / 3062.429 517.204 / 517.204 Weight 82.5 kg 82.5 kg 89 kg Intake: IV 2127.923 / 4417.429 2289.506 / 4417.429 1167.204 / 1167.204 Output: Gastric Drainage 30 / 330 300 / 330 200 / 200 Left Nare 30 / 330 300 / 330 200 / 200 Urine 400 / 1025 625 / 1025 450 / 450 Other: Urine Color Yellow Light Breanna Dark Breanna Urine Appearance Clear Clear Clear Comment Garcia is patent and draining FC Laboratory Results WBC 7.28 k/cumm (4.4-10.8) D 07/04/19 06:39 RBC 4.09 m/cumm (4.50-6.00) L 07/04/19 06:39 Hgb 11.8 g/dL (13.5-17.5) L D 07/04/19 06:39 Hct 35.0 % (40.0-50.0) L 07/04/19 06:39 MCV 85.6 fL (80-95) 07/04/19 06:39 MCH 28.9 pg (27.0-33.0) 07/04/19 06:39 MCHC 33.7 g/dL (32.0-36.0) 07/04/19 06:39 RDW 13.4 % (11.8-14.1) 07/04/19 06:39 Plt Count 135 x1000/uL (130-400) 07/04/19 06:39 MPV 9.5 fL (8.0-11.0) 07/04/19 06:39 Immature Gran % 0.3 07/04/19 06:39 Neutrophils % 63.0 07/04/19 06:39 Lymphocytes % 27.5 07/04/19 06:39 Monocytes % 7.4 07/04/19 06:39 Eosinophils % 1.4 07/04/19 06:39 Basophils % 0.4 07/04/19 06:39 Absolute Neutrophils 4.59 k/cumm (1.2-6.7) 07/04/19 06:39 Absolute Lymphocytes 2.00 k/cumm (1.2-3.4) 07/04/19 06:39 Absolute Monocytes 0.54 k/cumm (0.11-0.7) 07/04/19 06:39 Absolute Eosinophils 0.10 k/cumm (0.0-0.7) 07/04/19 06:39 Absolute Basophils 0.03 k/cumm (0.0-0.2) 07/04/19 06:39 PT 10.6 sec (9.3-11.0) 07/03/19 07:10 INR 1.1 (0.9-1.1) 07/03/19 07:10 APTT 27.2 sec (21.0-31.4) 07/03/19 07:10 Sample Site Right radial 07/03/19 12:15 pCO2 34 mmHg (34-47) 07/03/19 12:15 pO2 98 mmHg (83-108) 07/03/19 12:15 O2 Saturation 99 % (94-98) H 07/03/19 12:15 ABG pH 7.45 (7.35-7.45) 07/03/19 12:15 ABG HCO3 24 mmol/L (22-28) 07/03/19 12:15 ABG Total CO2 21 mmol/L (22-29) L 07/03/19 12:15 ABG Base Excess -0.5 mmol/L (-3-3) 07/03/19 12:15 VBG pH 7.42 (7.32-7.43) 07/03/19 07:22 VBG pCO2 41 mm/Hg (34-47) 07/03/19 07:22 VBG pO2 34 mm/Hg (28-44) 07/03/19 07:22 VBG HCO3 27 mmol/L (22-28) 07/03/19 07:22 VBG Total CO2 24 mmol/L (22-29) 07/03/19 07:22 VBG O2 Saturation 74 % (70-80) 07/03/19 07:22 VBG Base Excess 2.4 mmol/L (-3-3) 07/03/19 07:22 Oxygen Liter Flow A/c 18 vt 450 L 07/03/19 12:15 FiO2 45% 5 peep % 07/03/19 12:15 Sodium 141 mmol/L (136-145) 07/04/19 06:39 Potassium 3.4 mmol/L (3.5-5.1) L 07/04/19 06:39 Chloride 110 mmol/L (98-107) H 07/04/19 06:39 Carbon Dioxide 21.7 mmol/L (21.0-32.0) 07/04/19 06:39 Anion Gap 9.3 mmol/L (3-11) 07/04/19 06:39 BUN 11 mg/dL (7-18) 07/04/19 06:39 Creatinine 1.17 mg/dL (0.70-1.30) 07/04/19 06:39 Estimated GFR/1.73 m2 >= 60.00 (mL/min/1.73m2) 07/04/19 06:39 Glucose 74 mg/dL (70-100) 07/04/19 06:39 Lactate 1.1 mmol/L (0.6-1.4) 07/03/19 10:10 Calcium 7.7 mg/dL (8.5-10.1) L 07/04/19 06:39 Magnesium 2.0 mg/dL (1.8-2.4) 07/04/19 06:39 Total Bilirubin 0.7 mg/dL (0.2-1.0) 07/04/19 06:39 Conjugated Bilirubin 0.27 mg/dL (0.00-0.20) H 07/04/19 06:39 AST 32 U/L (15-37) 07/04/19 06:39 ALT 18 U/L (16-63) 07/04/19 06:39 Alkaline Phosphatase 54 U/L (46-116) 07/04/19 06:39 Ammonia 29 umol/L (11-32) 07/04/19 06:39 Total Protein 5.3 g/dL (6.4-8.2) L 07/04/19 06:39 Albumin 2.7 g/dL (3.4-5.0) L 07/04/19 06:39 Urine Color Yellow (Yellow) 07/03/19 08:00 Urine Clarity Clear (Clear) 07/03/19 08:00 Urine pH 5.5 (5-8) 07/03/19 08:00 Ur Specific [place] 1.025 (1.005-1.025) 07/03/19 08:00 Urine Protein Negative mg/dL (Negative) 07/03/19 08:00 Urine Ketones Negative mg/dL (Negative) 07/03/19 08:00 Urine Blood Negative (Negative) 07/03/19 08:00 Urine Nitrite Negative (Negative) 07/03/19 08:00 Urine Bilirubin Negative (Negative) 07/03/19 08:00 Urine Urobilinogen 0.2 EU/dL (Up TO 0.2) 07/03/19 08:00 Ur Leukocyte Esterase Trace (Negative) H 07/03/19 08:00 Urine RBC Negative (0-2) 07/03/19 08:00 Urine WBC 3-5 HPF (0-5) 07/03/19 08:00 Ur Epithelial Cells Few HPF (Negative) 07/03/19 08:00 Urine Crystals Negative HPF (Negative) 07/03/19 08:00 Urine Bacteria Few HPF (Negative) 07/03/19 08:00 Urine Casts Negative LPF (Negative) 07/03/19 08:00 Urine Mucus Moderate (Negative) 07/03/19 08:00 Ur Culture Indicated? Yes 07/03/19 08:00 Urine Glucose Negative mg/dL (Negative) 07/03/19 08:00 Salicylates 4.3 mg/dL (2.8-20.0) 07/03/19 07:10 Urine Opiates Screen Negative (Negative) 07/03/19 08:00 Urine Methadone Screen Negative (Negative) 07/03/19 08:00 Acetaminophen < 2 ug/mL (10-30) L 07/03/19 07:10 Ur Barbiturates Screen Negative (Negative) 07/03/19 08:00 Ur Tricyclics Screen Negative (Negative) 07/03/19 08:00 Ur Amphetamines Screen Negative (Negative) 07/03/19 08:00 U Benzodiazepines Scrn Negative (Negative) 07/03/19 08:00 Urine Cocaine Screen Positive (Negative) A 07/03/19 08:00 Ur THC Screen Positive (Negative) A 07/03/19 08:00 Ethyl Alcohol 6.2 mg/dL (<3) 07/03/19 07:10 CXR not done yet.
--- NOTE | 2019-07-04 08:30 | DI.RAD_ITS ---
EXAM: XR PORTABLE CHEST AP INDICATION: ventilated patient. COMPARISON: XR PORTABLE CHEST AP POST LINE from 07/03/2019 TECHNIQUE: 2D digital imaging was performed. FINDINGS: The nasogastric tube and endotracheal tube are unchanged in position. The lungs are not well inflate d. There are increased densities at both lung bases which could represent bilateral infiltrates vers us atelectasis. IMPRESSION: Bibasilar atelectasis versus infiltrate.
--- NOTE | 2019-07-04 09:31 | W.NUTCONSULT ---
Date of service: 07/04/19 Time of Service: 09:31 Nutritional Consult ASSESSMENT: Appreciate nutrition consult for tube feeding recommendations secondary to intubation. Has aspiration pneumonia and exposure to chronic drug use; ADHD. He is receiving banana bag at this time. Weight 89kg. BMI not available due to height not measured. RN estimates he is not more the 6'. No indication of recent weight change in medical history. Hgb: 11.8 Estimated caloric metabolic needs without good understanding of his current nutritional status: 2200 calories Protein needs: 108 grams NUTRITIONAL DIAGNOSIS: Inadequate caloric, nutrient and protein intake secondary to intubation. INTERVENTION: If short term use recommend 8-8ounce Osmolite 1.2 to provide Calories: 2280; Protein 105grams MONITORING AND EVALUATION: Recommend starting Osmolite 1.2 allison # 30cc/hr and advance perprotocol by 15cc every 4 hours until the goal of 60cc/hr is reached and tolerated. Provide additional free water to meet patient's hydration needs. He may require 640 cc additional free water to meet his needs and more or less based on his clinical situation Will follow tolerance and opportunity for additional nutrition assessment. Time Spent in Nutritional Counseling and Treatment: 0 minutes face to face
[2019-07-04 09:39] LABS: BE -2.8 mmol/L (-3-3); HCO3 22 mmol/L (22-28); pCO2 34 mmHg (34-47); pH 7.41 (7.35-7.45); pO2 95 mmHg (83-108); sO2 98 % (94-98); tCO2 20 mmol/L (22-29)
[2019-07-04 09:41] LABS: Site Right Radial
[2019-07-04] MEDS: MULTIVITAMIN 10 ML, THIAMINE 100 MG, FOLIC ACID 1 MG in DEXTROSE 5%-0.45% SALINE 1,000 ML 125 ML IV (10:20)
--- NOTE | 2019-07-04 10:27 | PDOC.CMIN ---
- If Service Date Differs Date of service: 07/04/19 Time of Service: 10:27 Care Management Initial Assess REASON FOR HOSPITALIZATION:: Drug Induced Delirium, on ventilator, Aspiration Pneumonia PAST MEDICAL HISTORY/PAST SURGICAL HISTORY:: Medical History. ADHD (Chronic). Alcohol abuse (Chronic). Cocaine abuse (Chronic). Narcotic abuse (Chronic). Surgical History. H/O umbilical hernia repair (Acute) PREVIOUS FUNCTIONAL STATUS/SOCIAL/FAMILY SUPPORTS:: Akshat lives in [facility] with his S/O Chastity, per file. Unable to obtain additional information due to patient's condition. CURRENT FUNCTIONAL STATUS:: Patient is on a ventilator, therefore CM is unable to obtain additional information. ADVANCE DIRECTIVES:: None on file Has patient been provided with information about the portal?: No Did the patient sign up for the portal?: No CODE STATUS:: Full Code INSURANCE COVERAGE / FINANCIAL ISSUES:: [employer] CURRENT HOME/COMMUNITY SERVICES/EQUIPMENT:: Unknown PRIMARY CARE PHYSICIAN:: Emelia Head POTENTIAL DISCHARGE NEEDS:: Evaluation of further needs, follow up appointments PATIENT/FAMILY EDUCATION NEEDS:: Review discharge instructions, discussion of self care needs including Ask Me Three ANTICIPATED BARRIERS TO DISCHARGE:: None identified TRANSPORTATION:: To be determined based on patient's condition at time of discharge. PLAN:: Akshat is currently on a ventilator. The current plan is for a weaning trial today. CM will continue to follow.
[2019-07-04] MEDS: Pantoprazole 40 MG VIAL IVP (10:29)
--- NOTE | 2019-07-04 10:50 | NUR.NOTE ---
Sedation ween for attempted extubation unsuccessful due to excessive agitation. Responded appropriately to questions by nodding. Respiratory rate increased significantly. Productive cough for large amount thick majano secretions becoming thick frothy pink tinged. Thrashing in bed attempting to grab ETT. Biting ETT but occasionally cooperating with demands from staff to open mouth when inserting bite block. Sedation resumed. Dr. Nice at bedside and updated. Ativan given x2 during episode. When second nurse asked this nurse if Ativan wanted, patient opened eyes and nodded 'yes'. Nursing Note:
[2019-07-04] MEDS: PROPOFOL 1,000 MG/100 ML BTL 41.368 MG IVPB ×4 (11:15→22:37)
--- NOTE | 2019-07-04 11:47 | DI.VRAD_ITS ---
PROCEDURE INFORMATION: Exam: XR Chest, 1 View Exam date and time: 07/04/2019 11:14 AM Clinical history: 38 years old, male; Device placement; Ett placement (vent status); Patient HX: Line placement yesterday, recheck after patient motion TECHNIQUE: Imaging protocol: XR of the chest Views: 1 view. COMPARISON: XR PORTABLE CHEST AP POST LINE 07/03/2019 10:53 AM FINDINGS: Tubes, catheters and devices: Endotracheal tube tip remains in unchanged position approximately 5 cm above the jv. Other medical support devices and tubes are unchanged. Lungs: Redemonstrated bilateral lower lobe opacities. Bilateral interstitial prominence. Indistinct pulmonary vasculature. Pleural space: No pleural effusion. No pneumothorax. Heart/Mediastinum: No cardiomegaly. Bones/joints: Unremarkable. IMPRESSION: 1. Unchanged position of endotracheal tube tip approximately 5 cm above the jv. Remaining medical support devices and tubes are unchanged. 2. Relatively unchanged appearance of right greater than left bilateral lower lobe opacities. 3. Bilateral interstitial prominence may be related to fluid status. Dictated and Authenticated by: Antolin Matute MD. Ordering:SAWYER Valadez MD
--- NOTE | 2019-07-04 13:29 | PHARADMIT ---
Admission Pharmacy Clinical Review DRUG INDUCED DELIRIUM, VENTILATED, ?ASP PNEUMONIA Code Status Full Code Current Weight 89 kg Renally Cleared and Narrow Therapeutic Index Meds CrCl~84ml/min QTc Value / Action Taken QTC 463 BP Control, Fever BP 101/51 (been soft) HR 83 Afebrile ~14 hours Electrolytes reviewed K+ 3.4 (IVF's) Mag 2.0 DVT Prophylaxis Heparin SC Opiate Usage / Scheduled Bowel Regimen Ordered Plt/SCr for Heparin / Enoxaparin Plt 135 SCr 1.17 INR for Warfarin H/H stable, WBC/Bands H/H 11.8/35 WBC 7.28 (down from 14.9) Antibiotic appropriateness Zosyn 3.375 q6h day#2 (Not treating Ventilated asp.Pneumonia or sepsis....he is ventilated for sedation/resp.failure) therefore higher dose not needed-per MD Cultures and Sensitivities Sputum: heavy growth-normal kerrie Blood: no growth x24h Urine: 10-50K Gram positive Surgical ABX d/c within 24 hr DM control / Insulin Dosing Heart Failure (Check EF%) (BEBA's, B-Block, Diuretics) IV to PO Switch Home Meds Reviewed Home Meds Not Ordered Focalin, Gabapentin, Lidocaine patch Comments Banana bag daily@1000 Ativan IV scale for CIWA-no score yet while ventilated, Alcohol was 6.2 on admission, Cocaine and THC positive ABG's seem ok, failed weaning trial today (on Propofol) Ortho consult for R leg pain Has a G-tube for other meds...if Ranexa restarted...it cannot be crushed, LIQUID MEDS IF POSSIBLE
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
[2019-07-04] MEDS: POTASSIUM CHLORIDE/D5-0.9%NACL 1,000 ML 125 MEQ IV (16:44)
[2019-07-05] VITALS (153 sets, daily range): BP systolic 88–151; BP diastolic 43–112; PULSE 54–100; RESP 5–51; TEMP 36.3–37; O2SAT 92–100
[2019-07-05] MEDS: PROPOFOL 1,000 MG/100 ML BTL 33.6 MG IVPB (01:00)
[2019-07-05] MEDS: Albuterol/Ipratropium 3 ML UPD VIAL UPD ×3 (01:01→11:50)
[2019-07-05] MEDS: PIPERACILLIN/TAZO 3.375 GM in Normal Saline 50 ML IVPB ×3 (01:01→12:13)
[2019-07-05] MEDS: Normal Saline Flush 10 ML SYR IVP ×2 (01:01→12:07)
[2019-07-05] MEDS: Nicotine 14 MG/24 HR PATCH TD (01:31)
[2019-07-05] MEDS: POTASSIUM CHLORIDE/D5-0.9%NACL 1,000 ML 125 MEQ IV (01:31)
[2019-07-05] MEDS: LORazepam 2 MG/ML VIAL 1 MG IVP (01:40)
[2019-07-05] MEDS: PROPOFOL 1,000 MG/100 ML BTL 33.601 MG IVPB (04:10)
[2019-07-05] MEDS: Normal Saline 500 ML 999 ML IV (05:54)
[2019-07-05 06:44] LABS: Abs Immature Grans 0.01 k/cumm (0.0-0.09); Absolute Basophil Count 0.02 k/cumm (0.0-0.2); Absolute Eosinophil Count 0.11 k/cumm (0.0-0.7); Absolute Lymphocyte Count 1.47 k/cumm (1.2-3.4); Absolute Monocyte Count 0.47 k/cumm (0.11-0.7); Absolute Neutrophil Count 3.26 k/cumm (1.2-6.7); Basophils % 0.4; Eosinophils % 2.1; HCT 33.6 % (40.0-50.0); HGB 11.4 g/dL (13.5-17.5); Immature Grans % 0.2; Lymphocytes % 27.5; Mean Corp. HGB Concentration 33.9 g/dL (32.0-36.0); Mean Corpuscular Hemoglobin 28.8 pg (27.0-33.0); Mean Corpuscular Volume 84.8 fL (80-95); Mean Platelet Volume 9.3 fL (8.0-11.0); Monocytes % 8.8; Platelet Count 147 x1000/uL (130-400); RBC 3.96 m/cumm (4.50-6.00); RBC Distribution Width 13.5 % (11.8-14.1); White Blood Cell Count 5.34 k/cumm (4.4-10.8)
[2019-07-05 06:57] LABS: Anion Gap 4.5 mmol/L (3-11); BUN 5 mg/dL (7-18); CO2 23.5 mmol/L (21.0-32.0); CREATININE 1.11 mg/dL (0.70-1.30); Calcium 7.6 mg/dL (8.5-10.1); Chloride 115 mmol/L (98-107); Glucose 114 mg/dL (70-100); Magnesium 1.9 mg/dL (1.8-2.4); Potassium 3.9 mmol/L (3.5-5.1); Sodium 143 mmol/L (136-145)
[2019-07-05] MEDS: PROPOFOL 1,000 MG/100 ML BTL 28.8 MG IVPB (07:01)
--- NOTE | 2019-07-05 07:01 | DI.VRAD_ITS ---
PROCEDURE INFORMATION: Exam: XR Chest, 1 View Exam date and time: 07/05/2019 6:38 AM Clinical history: 38 years old, male; Other: PT on ventilator TECHNIQUE: Imaging protocol: XR of the chest Views: 1 view. COMPARISON: XR PORTABLE CHEST AP 07/04/2019 11:01 AM FINDINGS: Tubes, catheters and devices: Midline endotracheal tube with its tip 5.5 CM above the jv. Enteric tube with its tip in the fundus of the stomach. Monitoring leads project over the chest. Lungs: Minimal improvement in bibasilar infiltrates, right greater than left. No new consolidations. Pleural space: No pleural effusions or pneumothorax. Heart/Mediastinum: Cardiac size is stable. Bones/joints: Unremarkable. IMPRESSION: 1. Minimal improvement bibasilar infiltrates, right greater than left. 2. Appearance of the chest is otherwise stable. Dictated and Authenticated by: Rocky Crowe MD. Ordering:SAWYER Valadez MD
--- NOTE | 2019-07-05 08:20 | PGE_ITS ---
Subjective Subjective Interval history since last seen: Episode of hypotension overnight, responded to fluids. Blood tinged secretion in ET tube. Waking up this morning. Not following commands yet - still on propofol. Plan to do weaning trial with precedex on board later today. Cannot tolerate getting an ABG today - moving too much - propofol increased. Objective Objective Clinical Data: Abnormal lab results 07/04/19 07/05/19 07/05/19 Range/Units 09:35 06:25 06:25 RBC 3.96 L (4.50-6.00) m/cumm Hgb 11.4 L (13.5-17.5) g/dL Hct 33.6 L (40.0-50.0) % ABG Total CO2 20 L (22-29) mmol/L Chloride 115 H (98-107) mmol/L BUN 5 L (7-18) mg/dL Glucose 114 H (70-100) mg/dL Calcium 7.6 L (8.5-10.1) mg/dL Vital Signs Temperature 36.8 C 07/05/19 06:54 Temperature Source Temporal Artery Scan 07/05/19 06:54 Pulse 62 07/05/19 07:40 Pulse 64 07/05/19 07:45 Respiratory Rate 18 07/05/19 07:45 Respiratory Effort 07/05/19 06:54 Respiratory Depth Normal 07/05/19 03:33 Respiratory Pattern Normal 07/05/19 03:33 Blood Pressure 98/53 L 07/05/19 07:40 Blood Pressure Mean 64 07/05/19 07:40 Blood Pressure Position Supine 07/05/19 03:33 Pulse Oximetry 99 07/05/19 07:45 Respiratory End-tidal CO2 27 07/05/19 07:45 Oxygen Delivery Method Mechanical Ventilator 07/05/19 05:55 Oxygen Flow Rate 0 07/05/19 05:55 Fraction of Inspired Oxygen (FIO2) 45 07/05/19 07:42 Pain Level 0 07/04/19 14:00 Comment 07/05/19 05:19 Intake & Output 07/04/19 07/04/19 07/05/19 11:59 23:59 11:59 Intake Total 1592.463 / 3644.524 1165.560 / 1165.560 Output Total 2925 / [address] [facility] / 1080 [facility] -1332.537 / 69.524 85.560 / 85.560 Weight 89 kg 82.7 kg Intake: IV 1592.463 / 3644.524 1165.560 / 1165.560 Output: Gastric Drainage 250 / 450 200 / 200 Left Nare 250 / 450 200 / 200 Urine 2675 / 3125 880 / 880 Other: Urine Color Yellow Yellow Urine Appearance Clear Clear Comment Placed urometer on. Emptied bag Cleaned in the last hour Gastric Occult Blood Left Nare Negative Positive Laboratory Results WBC 5.34 k/cumm (4.4-10.8) 07/05/19 06:25 RBC 3.96 m/cumm (4.50-6.00) L 07/05/19 06:25 Hgb 11.4 g/dL (13.5-17.5) L 07/05/19 06:25 Hct 33.6 % (40.0-50.0) L 07/05/19 06:25 MCV 84.8 fL (80-95) 07/05/19 06:25 MCH 28.8 pg (27.0-33.0) 07/05/19 06:25 MCHC 33.9 g/dL (32.0-36.0) 07/05/19 06:25 RDW 13.5 % (11.8-14.1) 07/05/19 06:25 Plt Count 147 x1000/uL (130-400) 07/05/19 06:25 MPV 9.3 fL (8.0-11.0) 07/05/19 06:25 Immature Gran % 0.2 07/05/19 06:25 Neutrophils % 61.0 07/05/19 06:25 Lymphocytes % 27.5 07/05/19 06:25 Monocytes % 8.8 07/05/19 06:25 Eosinophils % 2.1 07/05/19 06:25 Basophils % 0.4 07/05/19 06:25 Absolute Neutrophils 3.26 k/cumm (1.2-6.7) 07/05/19 06:25 Absolute Lymphocytes 1.47 k/cumm (1.2-3.4) 07/05/19 06:25 Absolute Monocytes 0.47 k/cumm (0.11-0.7) 07/05/19 06:25 Absolute Eosinophils 0.11 k/cumm (0.0-0.7) 07/05/19 06:25 Absolute Basophils 0.02 k/cumm (0.0-0.2) 07/05/19 06:25 PT 10.6 sec (9.3-11.0) 07/03/19 07:10 INR 1.1 (0.9-1.1) 07/03/19 07:10 APTT 27.2 sec (21.0-31.4) 07/03/19 07:10 Sample Site Right radial 07/04/19 09:35 pCO2 34 mmHg (34-47) 07/04/19 09:35 pO2 95 mmHg (83-108) 07/04/19 09:35 O2 Saturation 98 % (94-98) 07/04/19 09:35 ABG pH 7.41 (7.35-7.45) 07/04/19 09:35 ABG HCO3 22 mmol/L (22-28) 07/04/19 09:35 ABG Total CO2 20 mmol/L (22-29) L 07/04/19 09:35 ABG Base Excess -2.8 mmol/L (-3-3) 07/04/19 09:35 VBG pH 7.42 (7.32-7.43) 07/03/19 07:22 VBG pCO2 41 mm/Hg (34-47) 07/03/19 07:22 VBG pO2 34 mm/Hg (28-44) 07/03/19 07:22 VBG HCO3 27 mmol/L (22-28) 07/03/19 07:22 VBG Total CO2 24 mmol/L (22-29) 07/03/19 07:22 VBG O2 Saturation 74 % (70-80) 07/03/19 07:22 VBG Base Excess 2.4 mmol/L (-3-3) 07/03/19 07:22 Oxygen Liter Flow Ac 18 vt450 L 07/04/19 09:35 FiO2 45% 5 peep % 07/04/19 09:35 Sodium 143 mmol/L (136-145) 07/05/19 06:25 Potassium 3.9 mmol/L (3.5-5.1) 07/05/19 06:25 Chloride 115 mmol/L (98-107) H 07/05/19 06:25 Carbon Dioxide 23.5 mmol/L (21.0-32.0) 07/05/19 06:25 Anion Gap 4.5 mmol/L (3-11) 07/05/19 06:25 BUN 5 mg/dL (7-18) L 07/05/19 06:25 Creatinine 1.11 mg/dL (0.70-1.30) 07/05/19 06:25 Estimated GFR/1.73 m2 >= 60.00 (mL/min/1.73m2) 07/05/19 06:25 Glucose 114 mg/dL (70-100) H 07/05/19 06:25 Lactate 1.1 mmol/L (0.6-1.4) 07/03/19 10:10 Calcium 7.6 mg/dL (8.5-10.1) L 07/05/19 06:25 Magnesium 1.9 mg/dL (1.8-2.4) 07/05/19 06:25 Total Bilirubin 0.7 mg/dL (0.2-1.0) 07/04/19 06:39 Conjugated Bilirubin 0.27 mg/dL (0.00-0.20) H 07/04/19 06:39 AST 32 U/L (15-37) 07/04/19 06:39 ALT 18 U/L (16-63) 07/04/19 06:39 Alkaline Phosphatase 54 U/L (46-116) 07/04/19 06:39 Ammonia 29 umol/L (11-32) 07/04/19 06:39 Total Protein 5.3 g/dL (6.4-8.2) L 07/04/19 06:39 Albumin 2.7 g/dL (3.4-5.0) L 07/04/19 06:39 Urine Color Yellow (Yellow) 07/03/19 08:00 Urine Clarity Clear (Clear) 07/03/19 08:00 Urine pH 5.5 (5-8) 07/03/19 08:00 Ur Specific [place] 1.025 (1.005-1.025) 07/03/19 08:00 Urine Protein Negative mg/dL (Negative) 07/03/19 08:00 Urine Ketones Negative mg/dL (Negative) 07/03/19 08:00 Urine Blood Negative (Negative) 07/03/19 08:00 Urine Nitrite Negative (Negative) 07/03/19 08:00 Urine Bilirubin Negative (Negative) 07/03/19 08:00 Urine Urobilinogen 0.2 EU/dL (Up TO 0.2) 07/03/19 08:00 Ur Leukocyte Esterase Trace (Negative) H 07/03/19 08:00 Urine RBC Negative (0-2) 07/03/19 08:00 Urine WBC 3-5 HPF (0-5) 07/03/19 08:00 Ur Epithelial Cells Few HPF (Negative) 07/03/19 08:00 Urine Crystals Negative HPF (Negative) 07/03/19 08:00 Urine Bacteria Few HPF (Negative) 07/03/19 08:00 Urine Casts Negative LPF (Negative) 07/03/19 08:00 Urine Mucus Moderate (Negative) 07/03/19 08:00 Ur Culture Indicated? Yes 07/03/19 08:00 Urine Glucose Negative mg/dL (Negative) 07/03/19 08:00 Salicylates 4.3 mg/dL (2.8-20.0) 07/03/19 07:10 Urine Opiates Screen Negative (Negative) 07/03/19 08:00 Urine Methadone Screen Negative (Negative) 07/03/19 08:00 Acetaminophen < 2 ug/mL (10-30) L 07/03/19 07:10 Ur Barbiturates Screen Negative (Negative) 07/03/19 08:00 Ur Tricyclics Screen Negative (Negative) 07/03/19 08:00 Ur Amphetamines Screen Negative (Negative) 07/03/19 08:00 U Benzodiazepines Scrn Negative (Negative) 07/03/19 08:00 Urine Cocaine Screen Positive (Negative) A 07/03/19 08:00 Ur THC Screen Positive (Negative) A 07/03/19 08:00 Ethyl Alcohol 6.2 mg/dL (<3) 07/03/19 07:10
--- NOTE | 2019-07-05 08:30 | DI.RAD_ITS ---
EXAM: XR PORTABLE CHEST AP INDICATION: ventilated patient. COMPARISON: XR PORTABLE CHEST AP from 07/04/2019 TECHNIQUE: 2D digital imaging was performed. FINDINGS: An endotracheal tube is again noted, unchanged in position above the jv. A nasogastric tube aga in projects in the stomach. Leads overlie the chest. The lungs are not well inflated. There are m ildly increased basilar densities which could indicate infiltrates versus atelectasis. The lungs michi ear improved when compared with the previous exam. IMPRESSION: Some interval improvement of basilar infiltrates.
--- NOTE | 2019-07-05 08:58 | CMPROGNOTE_ITS ---
Care Management Progress Note S/O: Akshat remains on propofol due to increased movements per MD, and is unable to tolerate and ABG today. Anticipate he will have a weaning trial today. CM continues to follow. A: 38 year old male admitted to [facility] due to acute respiratory failure with aspiration pneumonia and drug induced delirium. He failed first weaning trial 07/04/19 due to anxiety and agitation. P: Akshat will continue to be closely monitored in the ICU as an ICU level patient at this time. Repeat weaning trial will be attempted today, if unsucces sful transfer will be sought, per MD. CM continues to follow.
[2019-07-05] MEDS: PROPOFOL 1,000 MG/100 ML BTL 40.8 MG IVPB (09:11)
[2019-07-05] MEDS: SODIUM CHLORIDE 0.45% 1,000 ML 125 ML IV (09:47)
[2019-07-05] MEDS: PROPOFOL 1,000 MG/100 ML BTL 30 MG IVPB (10:54)
--- NOTE | 2019-07-05 11:25 | DI.RAD_ITS ---
EXAM: XR PORTABLE CHEST AP INDICATION: ?neg. pressure pulmonary edema. COMPARISON: No exams were available for comparison TECHNIQUE: 2D digital imaging was performed. FINDINGS: The nasogastric tube and endotracheal tube are unchanged in position.. Leads overlie the chest. De nsities are again noted at the right lung base. No effusions are seen. The lungs are not well infla miladis. There is no evidence of pulmonary edema. IMPRESSION: Stable right basilar infiltrate. No evidence of pulmonary edema.
[2019-07-05] MEDS: Pantoprazole 40 MG VIAL IVP (12:08)
[2019-07-05 12:35] LABS: BE -1.8 mmol/L (-3-3); pCO2 38 mmHg (34-47); pH 7.39 (7.35-7.45); pO2 77 mmHg (83-108); sO2 96 % (94-98); tCO2 21 mmol/L (22-29)
[2019-07-05 12:38] LABS: FIO2 35 %; Site Right Radial
[2019-07-05 12:39] LABS: HCO3 23 mmol/L (22-28)
[2019-07-05] MEDS: Heparin 5,000 UNITS/ML VIAL 5000 UNITS SC (13:19)
[2019-07-05] MEDS: PROPOFOL 1,000 MG/100 ML BTL 85 MG IVPB ×2 (13:23→15:38)
--- NOTE | 2019-07-05 13:48 | W.PM.DS.N ---
Date of service: 07/05/19 Time of Service: 13:48 DS: Diagnosis Discharge Diagnosis (1) Respiratory failure, acute: Status: Acute (2) Streptococcal pneumonia: Status: Acute (3) Toxic metabolic encephalopathy: Status: Acute (4) INDIRA (acute kidney injury): Status: Acute (5) ADHD: Status: Chronic (6) Alcohol abuse: Status: Chronic (7) Narcotic abuse: Status: Chronic (8) Cocaine abuse: Status: Chronic (9) Right leg pain: Status: Acute Asessment and Plan: with questionable intracortical lesion over anetromedial cortex of unclear signficance - will need a CT once extubated/stable Discharge Plan Disposition Patient Disposition: [facility] Condition: Serious Discharge Details Chief Complaint: GenMedical Clinical Impression: Polysubstance abuse, Pneumonia involving right lung Reason For Visit: DRUG INDUCED DELIRIUM, ON VENTILATOR, ASPIRATION P Admit Date/Time: 07/03/19 09:53 Admit Provider: Allyson Nice Attending Provider: Allyson Nice Primary Care Provider: Emelia Head ED Provider: Martinez Thomas Hospital Course Hospital Course: Mr Mata is a 38 year old male with PMHx of ADHD, polysubstance abuse that we believe to be alcohol, cocaine, THC, possibly opioids and PCP, who was admitted to [facility] ICU under the hospitalist service on 07/03/19 after being brought to [facility] ED by ambulace for agitation, alcohol intoxication, beligerent behavior, requiring sedation and, subsequently, intubation in the ED. Notably, the patient has a very narrow trachea and a difficult airway. He was sedated with propofol. His workup revealed bibasilar infiltrates, and sputum culture grew Strep pneumonia. Since admission, he has been on zosyn, which should adequately cover the pneumonia. The patient was not able to participation in a weaning trial on both 07/04/19 and 07/05/19 due to agitation, inability to cooperate, and copious thick respiratory secretions, developing tachypnea and not consistently following commands. On 07/05/19, precedex was used for the weaning trial, and the patient was more awake, but not cooperative. Therefore, it is felt he would benefit from transfer to a tertiary care facility such as [facility] as his extubation is likely to require greater expertise from Pulmonology and Critical Care than our hospital is able to provide. We do feel that the patient is a high risk to go through alcohol withdrawal once intubated. Finally, the patient did have multiple falls on 07/03/19 and evidently reported RLE pain in the ED. His R tib/fib XR showed a questionable round intracortical sclerotic lesion over the anteromedial tibial cortex, which would warrant further investigation with CT, nonemergently, per our orthopedic surgeon Dr Blair, who did not believe the appearance of the lesion to be malignant. At this time, the patient is hemodynamically stable for transfer. Unfortunately, he cannot neither consent nor decline transfer due to his mental status, and we have been unable to locate the next of kin/decision maker for him to make the decision re transfer, but it is felt to be medically necessary by myself and the clinical staff at [facility]. Critical Care for patient on day of transfer took 90 minutes. Home Meds and New Rx's Prescriptions: No Action dexmethylphenidate [Focalin XR] 30 MG capsule,ER biphasic 50-50 30 mg PO DAILY RF: 0 gabapentin 300 MG capsule 300 mg PO BID RF: 0 lidocaine 5 % adhesive patch,medicated 1 patch TP DAILY Qty: 15 RF: 0 Discharge Instructions Activity:: bedrest, turn Q2H Diet:: NPO Discharge Orders Discharge Orders: Discharge Order (Routine); Ordered 07/05/19 Ordered By: Allyson Nice DS: Summary Status at Discharge Functional status at discharge: bed bound Overall status at discharge: patient is not back to baseline Mental Status: other Speech and Movement: agitated and other Mood: other Affect: other Exam Narrative Exam Narrative: General: Middle-aged male, intubated, sedated, arousable to verbal and painful stimuli, opening eyes, tracking, but not consistently following commands, but able to turn to voice. HEENT: NGT and ET tubes in place, thick white secretions in tubing; biting down on the ET tube Cardiovascular: RRR, no m/r/g Lungs: Ventilator breath sounds with improvement in aeration from yesterday, coughing Gastrointestinal: abdomen is soft, nontender, nondistended Genitourinary: has a garcia Extremities: 1+ pedal pulses B, no c/c, able to move all 4 extremities. Psych Mental Status: other Speech and Movement: agitated and other Mood: other Affect: other DS: Data Vitals/I&O Vitals and I&O: Vital Signs Temperature 37.0 C 07/05/19 11:48 Temperature Source Temporal Artery Scan 07/05/19 11:48 Pulse 62 07/05/19 11:50 Pulse 66 07/05/19 11:31 Respiratory Rate 18 07/05/19 12:04 Respiratory Effort 07/05/19 11:48 Respiratory Depth Normal 07/05/19 11:48 Respiratory Pattern Normal 07/05/19 11:48 Blood Pressure 98/51 L 07/05/19 11:48 Blood Pressure Mean 66 07/05/19 11:48 Blood Pressure Position Supine 07/05/19 11:48 Pulse Oximetry 95 07/05/19 12:04 Respiratory End-tidal CO2 23 07/05/19 11:32 Oxygen Delivery Method Mechanical Ventilator 07/05/19 11:50 Oxygen Flow Rate 0 07/05/19 11:50 Fraction of Inspired Oxygen (FIO2) 35 07/05/19 11:50 Pain Level 0 07/04/19 14:00 Comment 07/05/19 05:19 Intake & Output 07/04/19 07/05/19 07/05/19 23:59 11:59 23:59 Intake Total 1592.463 / 3644.524 3012.143 / 3154.225 142.082 / 3154.225 Output Total 2925 / 3575 1715 / 1945 230 / 1945 Balance -1332.537 / 69.524 1297.143 / 1209.225 -87.918 / 1209.225 Weight 89 kg 82.7 kg Intake: IV 1592.463 / 3644.524 3012.143 / 3154.225 142.082 / 3154.225 Output: Gastric Drainage 250 / 450 350 / 350 Left Nare 250 / 450 350 / 350 Urine 2675 / 3125 1365 / 1595 230 / 1595 Other: Urine Color Yellow Straw Straw Urine Appearance Clear Clear Clear Comment Placed urometer on. Emptied bag garcia in place draining cyu Gastric Occult Blood Left Nare Negative Positive Data Completed and Pending Completed studies during hospitalization [Text1]: XR right knee 07/03/19: Minimal degenerative changes. No acute abnormality. XR tib/fib 07/03/19: No acute abnormality. CXR 07/03/19: Mild basilar atelectasis. Satisfactory position of endotracheal tube. The nasogastric tube should be advanced. CT head/c-spine 07/03/19: Debris within nasopharynx and oropharynx related to recent intubation. No evidence of fracture. CT chest/abdomen/pelvis 07/03/19: Right lower lobe consolidation with debris in the right main bronchus. No acute abnormality in the abdomen or pelvis. CXR #2 07/03/19: Satisfactory placement of NG tube. Right lower lobe atelectasis versus pneumonia. CXR 07/04/19: Bibasilar atelectasis versus infiltrate. CXR 07/05/19: Some interval improvement of basilar infiltrates. CXR 07/05/19 #2: Stable right basilar infiltrate. No evidence of pulmonary edema. Labs on day of discharge: Labs from last 24 hours 07/05/19 07/05/19 07/05/19 12:32 06:25 06:25 WBC 5.34 RBC 3.96 L Hgb 11.4 L Hct 33.6 L MCV 84.8 MCH 28.8 MCHC 33.9 RDW 13.5 Plt Count 147 MPV 9.3 Immature Gran % 0.2 Neutrophils % 61.0 Lymphocytes % 27.5 Monocytes % 8.8 Eosinophils % 2.1 Basophils % 0.4 Absolute Neutrophils 3.26 Absolute Lymphocytes 1.47 Absolute Monocytes 0.47 Absolute Eosinophils 0.11 Absolute Basophils 0.02 Sample Site Right radial pCO2 38 pO2 77 L O2 Saturation 96 ABG pH 7.39 ABG HCO3 23 ABG Total CO2 21 L ABG Base Excess -1.8 FiO2 35 Sodium 143 Potassium 3.9 Chloride 115 H Carbon Dioxide 23.5 Anion Gap 4.5 BUN 5 L Creatinine 1.11 Estimated GFR/1.73 m2 >= 60.00 Glucose 114 H Calcium 7.6 L Magnesium 1.9 Preliminary micro results at discharge 07/03/19 09:56 Blood Culture - Preliminary Blood NO GROWTH 48 HOURS 07/03/19 09:50 Blood Culture - Preliminary Blood NO GROWTH 48 HOURS 07/03/19 19:29 Sputum Culture - Preliminary Sputum - Induced Streptococcus Pneumoniae Normal Darlin [facility] Medical History (Updated 07/05/19 @ 14:14 by Allyson Nice MD) ADHD (Chronic) Alcohol abuse (Chronic) Cocaine abuse (Chronic) Narcotic abuse (Chronic) Surgical History (Updated 07/03/19 @ 10:41 by Allyson Nice MD) H/O umbilical hernia repair (Acute) Family History (Updated 07/03/19 @ 10:41 by Allyson Nice MD) Other Family history unobtainable due to patient's condition Social History Smoking/Tobacco Use Status: Current every day Tobacco Type: cigarettes Drug use: Daily Substance use type: does not use Do you feel safe in your relationship?: Yes
== END 2019-07-05 15:58 | disposition short-term general hospital (02) | DRG 208 ==
LOC: ER 10:19 → ICU 11:12
PROVIDERS: Student in an Organized Health Care Education/Training Program; Admitting Provider Internal Medicine; Emergency Provider Emergency Medicine; PCP Nurse Practitioner Family; Visit Provider Internal Medicine
DX: J96.00 Acute respiratory failure, unspecified whether with hypoxia or hypercapnia (principal); G92 Toxic encephalopathy; J69.0 Pneumonitis due to inhalation of food and vomit; J13 Pneumonia due to Streptococcus pneumoniae; N17.9 Acute kidney failure, unspecified; Z99.11 Dependence on respirator [ventilator] status; F10.120 Alcohol abuse with intoxication, uncomplicated; F14.10 Cocaine abuse, uncomplicated; F11.10 Opioid abuse, uncomplicated; F16.10 Hallucinogen abuse, uncomplicated; R45.1 Restlessness and agitation; F91.9 Conduct disorder, unspecified; Y90.0 Blood alcohol level of less than 20 mg/100 ml; M79.604 Pain in right leg; W19.XXXA Unspecified fall, initial encounter; T88.4XXA Failed or difficult intubation, initial encounter; R93.6 Abnormal findings on diagnostic imaging of limbs; F90.9 Attention-deficit hyperactivity disorder, unspecified type; F17.210 Nicotine dependence, cigarettes, uncomplicated
CPT/HCPCS: 36415; 51702; 71045; 73562; 74177; 80048; 80053; 80076; 80307; 82805; 87040; 87077; 93005; 96361; 96365; 96366; 96368; 96375; 99252; 99285; 99291; 36600; 70450; 71260; 72125; 73590; 80320; 80329; 81003; 81015; 82140; 83605; 83735; 85025; 85610; 85730; 87070; 87086; 87186; 87205; 93010; 94002; 94003; 94640; J0696; J1200; J1630; J1644; J2060; J2543; J3490; J7620; L0172; L1830

== ENCOUNTER 2019-07-16 11:05 | Emergency (ER) | payer MEDICAID, SELFPAY ==
[2019-07-16 11:08] VITALS: BP 130/69; PULSE 70; RESP 16; TEMP 36.6; O2SAT 97
--- NOTE | 2019-07-16 11:29 | W.ED.GENAD ---
Discharge Plan Disposition Patient Disposition: HOME Condition: Stable Discharge Details Chief Complaint: GenMedical Clinical Impression: Opiate dependence Primary Care Provider: Emelia Head ED Provider: Martinez Thomas Home Meds and New Rx's Prescriptions: Continued dexmethylphenidate [Focalin XR] 30 MG capsule,ER biphasic 50-50 30 mg PO DAILY RF: 0 gabapentin 300 MG capsule 300 mg PO BID RF: 0 lidocaine 5 % adhesive patch,medicated 1 patch TP DAILY Qty: 15 RF: 0 Discharge Instructions Additional Instructions: I discussed your case with Dr. Rashad Sweet of [facility]. They are willing to see you for evaluation of bridging therapy with buprenorphine. Please go directly to [facility] at this time. Medical Decision Making 38-year-old male was admitted to [facility] after initial treatment at [facility] on July 03. States he was started on buprenorphine 8 mg/day for 3 days including the day of discharge yesterday. Was not prescribed buprenorphine but has a plan to follow-up with the clinic in [place] on Friday. He was referred to the ER for bridge therapy. No bridge therapy available here, I did discuss the case with Dr. Sweet of [facility] who is willing to accept the patient in transfer for consideration of bridging therapy with buprenorphine. HPI General Mode of arrival: ambulatory. Date/Time Provider Initiated Documentation: 07/16/19 11:12. Limitations to Documentation: no limitations. History of Present Illness 38 year old M presents to the emergency department with the chief complaint of Requesting buprenorphine, described as mild, Patient reports no radiation. Patient started experiencing this minute(s) and it has been constant. No relieving factors improve symptom(s), No exacerbating factors reported . Patient did receive the following treatments prior to arrival, none Related Data Home Medications Medication Instructions Recorded Confirmed dexmethylphenidate [Focalin XR] 30 mg PO DAILY tab-cap 02/17/18 02/23/19 gabapentin 300 mg PO BID 03/17/18 07/16/19 lidocaine 1 patch TP DAILY #15 each 02/23/19 Previous Rx's Medication Instructions Recorded lidocaine 1 patch TP DAILY #15 each 02/23/19 Allergies Allergy/AdvReac Type Severity Reaction Status Date / Time No Known Allergies Allergy Unverified 07/16/19 11:12 General Stated Complaint: GenMedical TIMOTHY: 4 Review of Systems Narrative: 6 systems reviewed and otherwise neg. [facility] Medical History ADHD (Chronic) Alcohol abuse (Chronic) Cocaine abuse (Chronic) Narcotic abuse (Chronic) Surgical History (Updated 07/03/19 @ 10:41 by Allyson Nice MD) H/O umbilical hernia repair (Acute) Family History Other Family history unobtainable due to patient's condition Social History Smoking/Tobacco Use Status: Current every day Tobacco Type: cigarettes Drug use: Daily Substance use type: heroin Do you feel safe at home: Yes Do you feel safe in your relationship?: Yes Exam Narrative Exam Narrative: GEN: awake, alert, oriented 3. Pleasant, well groomed, interactive. HEAD: Normocephalic, atraumatic ENT: Mucous membranes moist, oropharynx unremarkable, External ear exam unremarkable EYES: PERRL, EOMI NECK: Full ROM, no JELENA, no menigismus CHEST/RESP: Nontender, clear to auscultation bilateral, no wheeze/rhonchi/rales CARDIOVASCULAR: RRR, no murmur, rub kari. 2+ Rad pulse bilateral ABDOMEN: Soft, nontender, no mass. +Bowel sounds EXT: Full ROM, no edema, no rash Neuro: Grossly normal neurologic exam, conversant, interactive. Psych: Speech fluent, thoughts congruent, affect normal Course Vital Signs Vital signs: Vital Signs Temperature 36.6 C 07/16/19 11:08 Pulse 70 07/16/19 11:08 Respiratory Rate 16 07/16/19 11:08 Blood Pressure 130/69 07/16/19 11:08 Pulse Oximetry 97 07/16/19 11:08 Temperature 36.6 C 07/16/19 11:08 Temperature Source Skin 07/16/19 11:08 Pulse 70 07/16/19 11:08 Respiratory Rate 16 07/16/19 11:08 Blood Pressure 130/69 07/16/19 11:08 Blood Pressure Position Sitting 07/16/19 11:08 Pulse Oximetry 97 07/16/19 11:08 Oxygen Delivery Method Room Air 07/16/19 11:08 Oxygen Flow Rate 0 07/16/19 11:08
--- NOTE | 2019-07-16 11:46 | NUR.NOTE ---
patient's family and friends brought patient in for bridge suboxone therapy [facility] unable to accomodate today. please see MD Stratton note. Nursing Note:
== END 2019-07-16 11:48 | disposition home or self-care (01) ==
PROVIDERS: Emergency Provider Emergency Medicine; PCP Nurse Practitioner Family
DX: F11.10 Opioid abuse, uncomplicated (principal)
CPT/HCPCS: 99285; 99283

== ENCOUNTER 2019-10-20 12:06 | Emergency (ER) | payer MEDICAID, SELFPAY ==
[2019-10-20 12:10] VITALS: BP 134/76; PULSE 86; RESP 14; TEMP 36.9; O2SAT 95
--- NOTE | 2019-10-20 12:15 | DI.CT_ITS ---
EXAM: CT ABDOMEN AND PELVIS W CLINICAL HISTORY: LOWER ABDOMINAL PAIN, RECTAL BLEEDING TECHNIQUE: Imaging Protocol: Axial computed tomography images with coronal and sagittal reformatted images were created and reviewed CONTRAST MATERIAL: Intravenous: Omnipaque 350 Contrast volume:100 mL Oral: No COMPARISON: ABD PELVIS WITH CONTRAST from 12/09/2011 ABD PELVIS WITH CONTRAST from 12/09/2011 CT CHEST/ABD/PEL W from 07/03/2019 FINDINGS: ABDOMEN: Lung Bases: Normal where visualized. Liver: Normal density. No measurable mass. Portal, Superior Mesenteric, and Splenic Veins: Unremarkable. Gallbladder and Biliary Tract: No radiodense calculus or dilation. Pancreas: Normal density, no abnormal calcifications or inflammatory process. Spleen: Normal. Adrenals: No masses seen. Kidneys: Normal size, contour and axis. No radiodense stones or obstructive uropathy. No masses seen. Abdominal Aorta: Abdominal portion non-dilated. Bowel: Colonic diverticulosis but no evidence of acute diverticulitis. No significant bowel wall thi ckening or bowel obstruction is present. Appendix is unremarkable. Peritoneal Cavity: No ascites, collection or mesenteric inflammatory response. Lymph Nodes: Within normal limits. Bones: Unremarkable. Moderate-sized central disc herniation at L4-L5. Mild narrowing of the central spinal canal. Soft Tissues: Stable soft tissue density at the abdominal wall at the level of the umbilicus. This m ay represent focal scarring. It is unchanged compared to prior examinations. PELVIS: Bladder: Symmetric distention, no gross wall thickening. Reproductive Organs: Unremarkable as visualized. Lymph Nodes: Within normal limits. Bones: Within normal limits. IMPRESSION: No evidence of an acute abdominal or pelvic process. The findings were discussed with the Emergency Department on the date of the examination. Incidental Findings Critical Findings DATA REPOSITORY: All CT scans at this facility are submitted to the National Radiology Data Registry (NRDR) Dose Index Registry (DIR) with the [employer] (ACR). RADIATION OPTIMIZATION: All CT scans at this facility use at least one of these dose optimization te chniques: automated exposure control; mA and/or kV adjustment per patient size (includes targeted exa ms where dose is matched to clinical indication); or iterative reconstruction.
--- NOTE | 2019-10-20 12:19 | ED.GENADUL_ITS ---
Discharge Plan Disposition Patient Disposition: HOME Condition: Stable Discharge Details Chief Complaint: GI Bleed Clinical Impression: Rectal bleeding Primary Care Provider: Adwoa Nixon ED Provider: Colt Bobo Home Meds and New Rx's Prescriptions: Continued gabapentin 300 MG capsule 300 mg PO BID RF: 0 Discharge Instructions Instructions: Rectal Bleeding (ED) Additional Instructions: follow up with general surgery within a week for the rectal bleeding and your primary care provider in 1-2 weeks to have a repeat urine test if you feel more ill, have worsening pain or worsening bleeding return to the emergency department Medical Decision Making 38 yo male with hx of substance abuse, adhd, who comes in with 2 days of inte rmittent small amounts of blood in stool and also blood tinged urine. Denies fevers, vomit, and has never had this happen in the past. Has some intermittent lower abdominal cramping and on exam has mild left lower quadrant tenderness, no blood visible on external rectal exam and declines to have internal exam and has normal penis and testicles without discharge or bleeding. Will obtain ct to eval for diverticulitis and lab work and UA and monitor. labs show elevated lipase to 900 otherwise unremarkable and UA shows no blood. CT shows no acute findings per Dr. Zhou. He remains stable and has no pain now, feel he can d/c and f/u with general surgery for the rectal bleeding and return precautions given Differential Diagnosis Differential Diagnosis: hemorrhoid, uti, cystitis, avm Medical Records Medical records reviewed: Yes I reviewed the patient's medical records. Imaging Data Radiologic Study: Attestation: I personally reviewed and interpreted this imaging study as follows: Imaging: CT Scan Radiologist's impression: no acute findings per Dr. Zhou Lab Data Lab results reviewed: Yes I reviewed the patient's lab results. HPI General Mode of arrival: ambulatory . Date/Time Provider Initiated Documentation: 10/20/19 12:09 . Limitations to Documentation: no limitations . Information obtained by: patient . History of Present Illness 38 year old M presents to the emergency department with the chief complaint of rectal bleeding, described as moderate, and it has been constant. No relieving factors improve symptom(s), No exacerbating factors reported . Patient notes no other symptoms.. Patient did receive the following treatments prior to arrival, none Related Data Home Medications Medication Instructions Recorded Confirmed gabapentin 300 mg PO BID 03/17/18 10/20/19 Allergies Allergy/AdvReac Type Severity Reaction Status Date / Time No Known Allergies Allergy Unverified 10/20/19 12:18 General Stated Complaint: GI Bleed TIMOTHY: 3 Review of Systems All systems reviewed & are unremarkable except as noted in HPI and below Constitutional Constitutional: Denies chills, Denies fever(s) and Denies weakness Cardiovascular Cardiovascular: Denies chest pain and Denies dyspnea Respiratory Respiratory: Denies cough and Denies dyspnea Gastrointestinal Gastrointestinal: Denies nausea and Denies vomiting Musculoskeletal Musculoskeletal: Denies joint swelling Integumentary/Breasts Skin/Breast: Denies rash Neurologic Neurologic: Denies weakness Psychiatric Psychiatric: Denies depression [facility] Surgical History (Updated 07/03/19 @ 10:41 by Allyson Nice MD) H/O umbilical hernia repair (Acute) Social History Smoking/Tobacco Use Status: Current every day Tobacco Type: cigarettes Drug use: Daily Substance use type: heroin Do you feel safe at home: Yes Do you feel safe in your relationship?: Yes Exam Const General: no acute distress Orientation: alert HENMT Head: normal to inspection Ears: external ears normal General nose exam: external nose normal Mouth: moist mucous membranes Eyes General: appearance normal, both eyes and all related structures Neck Neck: normal visual inspection Resp Effort & Inspection: normal respiratory effort and able to speak in complete sentences Cardio Rate: regular rate GI Palpation: soft Skin General skin exam: no rashes or lesions noted Neuro General: alert and oriented x3 Extrem General: normal to inspection Psych Mental Status: mental status grossly normal Course Vital Signs Vital signs: Vital Signs Temperature 36.9 C 10/20/19 12:10 Pulse 86 10/20/19 12:10 Respiratory Rate 14 10/20/19 12:10 Blood Pressure 134/76 10/20/19 12:10 Pulse Oximetry 95 10/20/19 12:10 Temperature 36.9 C 10/20/19 12:10 Temperature Source Skin 10/20/19 12:10 Pulse 86 10/20/19 12:10 Respiratory Rate 14 10/20/19 12:10 Blood Pressure 134/76 10/20/19 12:10 Blood Pressure Position Sitting 10/20/19 12:10 Pulse Oximetry 95 10/20/19 12:10 Oxygen Delivery Method Room Air 10/20/19 12:10 Oxygen Flow Rate 0 10/20/19 12:10 Pain Level 5 10/20/19 12:10
--- NOTE | 2019-10-20 12:44 | NUR.NOTE ---
12:43 patient very anxious, wandering around room. States he was recently in [facility] in a drug induced a coma. Unable to state why. States they did not take care of him. Patient asking for something to eat. Educated on need to wait for lab results. Patient running water in the sink against medical advice. MD aware.
[2019-10-20 12:52] LABS: Abs Immature Grans 0.03 k/cumm (0.0-0.09); Absolute Basophil Count 0.06 k/cumm (0.0-0.2); Absolute Eosinophil Count 0.18 k/cumm (0.0-0.7); Absolute Lymphocyte Count 3.25 k/cumm (1.2-3.4); Absolute Neutrophil Count 4.81 k/cumm (1.2-6.7); Basophils % 0.7; HCT 45.7 % (40.0-50.0); HGB 15.4 g/dL (13.5-17.5); Immature Grans % 0.3 %; Lymphocytes % 35.2; Mean Corp. HGB Concentration 33.7 g/dL (32.0-36.0); Mean Corpuscular Hemoglobin 28.2 pg (27.0-33.0); Mean Corpuscular Volume 83.7 fL (80-95); Mean Platelet Volume 9.7 fL (8.0-11.0); Monocytes % 9.8; Platelet Count 224 x1000/uL (130-400); RBC 5.46 m/cumm (4.50-6.00); RBC Distribution Width 13.1 % (11.8-14.1); White Blood Cell Count 9.23 k/cumm (4.4-10.8)
[2019-10-20 13:04] LABS: PTT Activated 25.9 sec (21.0-31.4); Prothrombin Time 10.2 sec (9.3-11.0)
[2019-10-20 13:05] LABS: ALT 25 U/L (16-63); AST 23 U/L (15-37); Alkaline Phosphatase 66 U/L (46-116); BUN 19 mg/dL (7-18); Bilirubin, Total 0.7 mg/dL (0.2-1.0); Calcium 8.6 mg/dL (8.5-10.1); Chloride 105 mmol/L (98-107); Glucose 111 mg/dL (74-106); Lipase 936 U/L (73-393); Potassium 4.8 mmol/L (3.5-5.1); Sodium 143 mmol/L (136-145); Total Protein 7.3 g/dL (6.4-8.2)
[2019-10-20 13:34] LABS: Bilirubin Negative (Negative); Blood Negative (Negative); Clarity Clear (Clear); Glucose Negative (Negative); Ketones Negative (Negative); Leukocyte Esterase Negative (Negative); Nitrite Negative (Negative); Specific Gravity >= 1.030 (1.005-1.025); Urobilinogen 0.2 EU/dL (Up TO 0.2); pH 5.5 (5-8)
[2019-10-20] MEDS: Omnipaque 350 MG/ML 100 ML BTL IJ (14:14)
[2019-10-20 14:33] VITALS: BP 137/81; RESP 18; O2SAT 100
--- NOTE | 2019-10-21 07:33 | NUR.NOTE ---
referral faxed to General Surgery and PCP-Emelia Head.Nursing Note:
[2019-10-21 13:07] LABS: Chlamydia Result Negative (Negative); GC Result Negative (Negative)
== END 2019-10-20 15:07 | disposition home or self-care (01) ==
PROVIDERS: Emergency Provider Emergency Medicine; PCP Family Medicine
DX: K62.5 Hemorrhage of anus and rectum (principal); R31.9 Hematuria, unspecified; R10.32 Left lower quadrant pain; R74.8 Abnormal levels of other serum enzymes; F11.10 Opioid abuse, uncomplicated
CPT/HCPCS: 36415; 80053; 83690; 87491; 87591; 99285; 74177; 81003; 82247; 82248; 83735; 85025; 85610; 85730; 99284; J3490

== ENCOUNTER 2020-11-29 16:20 | Emergency (ER) | payer MEDICAID, SELFPAY ==
[2020-11-29 16:30] VITALS: BP 102/66; PULSE 98; RESP 18; TEMP 36.6; O2SAT 96
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
== END 2020-11-29 16:48 | disposition home or self-care (01) ==
LOC: ER 16:42
PROVIDERS: Emergency Provider Emergency Medicine; PCP Family Medicine
DX: S61.412A Laceration without foreign body of left hand, initial encounter (principal); W26.0XXA Contact with knife, initial encounter
CPT/HCPCS: 99284; 99283

== ENCOUNTER 2021-03-16 14:12 | Emergency (ER) | payer MEDICAID, SELFPAY ==
--- NOTE | 2021-03-16 14:15 | RT.EKG_ITS ---
APPROVED REPORT Exam: Resting ECG Reason for Exam: Difficulty breathing Patient Location: E HR:68 bpm ECG Measurements Heart Rate 68 AXIS GA 156 P -2 QRSd 109 QRS -27 QT 384 T 37 QTc 407 Conclusion Unknown rhythm, irregular rate...V-rate 55- 82, variation>10% ST elev, probable normal early repol pattern...ST elevation, age<55. Early repol pattern. No STEMI. No significant change from previous. I have reviewed and interpreted ECG and agree with software generated interpretation.
[2021-03-16 14:30] VITALS: BP 110/70; PULSE 76; RESP 22; TEMP 36.8; O2SAT 94
[2021-03-16 14:33] VITALS: RESP 22
--- NOTE | 2021-03-16 14:38 | ED.GENADUL_ITS ---
Discharge Plan Disposition Patient Disposition: HOME Condition: Improving Discharge Details Clinical Impression: Acute bronchitis Primary Care Provider: Adwoa Nixon ED Provider: Karla Castillo Home Meds and New Rx's Prescriptions: New amoxicillin-pot clavulanate [Augmentin] 875-125 mg tablet 1 tab PO BID 7 Days Qty: 14 RF: 0 prednisone 20 mg tablet See Rx Instructions .ROUTE .COMPLEX Qty: 12 RF: 0 benzonatate [Tessalon Perles] 100 mg capsule 100 mg PO TID PRN (Reason: cough) Qty: 14 RF: 0 Continued buprenorphine-naloxone [Suboxone] 8-2 mg Film 2 film buccal DAILY RF: 0 Discharge Instructions Instructions: Acute Bronchitis (ED) Additional Instructions: Your symptoms are most likely due to a viral infection called bronchitis. Because you are a smoker there is a risk that this can develop into a bacterial infection which is treated with antibiotics. Drink plenty of fluids and get plenty of rest. Take the steroids and antibiotics as directed until finished. Take the cough medicine and use the inhaler as needed and directed. Your prescriptions have been sent electronically to your pharmacy. You will be receive a call from care management regarding a follow up appointment with a primary care doctor to establish care and to follow up for your cough and shortness of breath. Return immediately to the emergency department if you develop any worsening or new concerning symptoms. Discharge Data Discharge Date/Time-TO BE ENTERED AT DEPARTURE: 03/16/21 16:14 Discharge Physician: Karla Castillo Medical Decision Making 40-year-old male with a history of cocaine and narcotic abuse in remission on Suboxone and tobacco smoker presents for cough with orange sputum and shortness of breath for the past few weeks, worse over the past 2 days. He originally had nasal congestion and discharge but this is now resolved. He also stated he had chest pain with deep breath 2 days ago but this is now resolved. He also stated he had lower extremity swelling recently but this is now resolved. Normal ENT exam. O2 sat 91-92% on RA. He has diminished breath sounds with scattered wheezing throughout. EKG done on arrival due to his complaint of previous chest pain and notes a rate of 68, sinus, no STEMI. Overall his complaint of productive cough with shortness of breath presents more likely as an infectious process. Discussed with patient that considering his symptom presentation, would also rule out potential PE although this seems less likely. Discussed that this would involve IV placement and CT chest. Patient is refusing IV and CT chest at this time. He states he does not want to stay in the hospital for any prolonged amount of time. Discussed the risks of missed diagnoses or worsening condition and he understands these risks and still declines. He demonstrates capacity to make decisions. Patient states he is okay with a chest x-ray. He is not vaccinated for COVID. We will also obtain a Covid swab. Will give a dose of oral steroids and DuoNeb and reassess. Chest x-ray negative. Patient reassessed and he states he feels better and would like to go home. Again discussed that without obtaining screening labs and CT chest to rule out PE, there is potential for missed diagnoses or worsening condition. Patient again understands these risks. He states he feels better. Breath sounds improved throughout. O2 sat 97-97% on RA. Will treat with oral steroids, albuterol, cough medicine and also give antibiotics as he is a smoker. He was given an inhaler to go. Prescriptions sent electronically to his pharmacy. Patient placed on care management list for PCP to establish care and for follow-up. He is advised to self isolate and quarantine with handwashing and mask wearing while awaiting Covid results. Usual and customary return precautions given prior to discharge. Medical Records Medical records reviewed: Yes I reviewed the patient's medical records. Imaging Data Radiologic Study: Radiologist's impression: XR CHEST 2V PA LATERAL CLINICAL HISTORY: cough, r/o acute disease TECHNIQUE: 2D digital imaging was performed. COMPARISON: CR XR PORTABLE CHEST AP from 07/05/2019 FINDINGS: MEDIASTINUM: Normal. HEART: Normal. PULMONARY VASCULATURE: Normal. LUNGS: Clear. PLEURAL SPACE: No pleural effusion or pneumothorax. BONE:Unremarkable for age. IMPRESSION: No acute abnormality. ECG Data Attestation: I personally reviewed and interpreted this ECG (s) as follows: Interpretation: Rate of 68, sinus with rate variation. No STEMI. HPI General Mode of arrival: ambulatory . Date/Time Provider Initiated Documentation: 03/16/21 14:21 . Limitations to Documentation: no limitations . Information obtained by: patient . HPI Narrative: Patient is a 40-year-old male tobacco smoker with a former history of narcotic and cocaine abuse currently on Suboxone presents for cold symptoms for the past few weeks, now with worsening cough and shortness of breath the past 2 days. Patient states his symptoms started with nasal congestion and nasal discharge but states this is now improved. He states he has been coughing up orange sputum. He denies hemoptysis. He also states that he had been having pain in his chest with deep breath 2 days ago but this is now resolved. He states his main complaint is shortness of breath. He denies any known fever. He states he has had a normal appetite. He admits to occasional headache and feeling fatigue but denies any headache or neck pain at present. Related Data Home Medications Medication Instructions Recorded Confirmed buprenorphine-naloxone [Suboxone] 2 film BUCCAL DAILY 11/29/20 03/16/21 amoxicillin-pot clavulanate 1 tab PO BID 7 Days #14 tab 03/16/21 [Augmentin] benzonatate [Tessalon Perles] 100 mg PO TID PRN #14 cap 03/16/21 prednisone See Rx Instructions .ROUTE 03/16/21 .COMPLEX #12 tab Previous Rx's Medication Instructions Recorded amoxicillin-pot clavulanate 1 tab PO BID 7 Days #14 tab 03/16/21 [Augmentin] benzonatate [Tessalon Perles] 100 mg PO TID PRN #14 cap 03/16/21 prednisone See Rx Instructions .ROUTE 03/16/21 .COMPLEX #12 tab Allergies Allergy/AdvReac Type Severity Reaction Status Date / Time No Known Allergies Allergy Unverified 03/16/21 14:36 General Stated Complaint: SOB TIMOTHY: 2 Review of Systems All systems reviewed & are unremarkable except as noted in HPI and below Constitutional Constitutional: Reports as per HPI, Denies chills, Denies fever(s) and Reports malaise Eyes Eyes: Denies blurry vision ENT Ears, Nose, Mouth, and Throat: Denies dizziness, Denies sore throat and Denies throat swelling Cardiovascular Cardiovascular: Denies chest pain and Reports dyspnea Respiratory Respiratory: Reports cough and Reports dyspnea Gastrointestinal Gastrointestinal: Denies abdominal pain, Denies diarrhea and Denies vomiting Genitourinary Genitourinary: Denies hematuria and Denies dysuria Musculoskeletal Musculoskeletal: Denies back pain and Denies numbness Integumentary/Breasts Skin/Breast: Denies lesions and Denies rash Neurologic Neurologic: Denies dizziness, Denies localized weakness and Denies numbness Allergic/Immunologic Allergic/Immunologic: Denies throat swelling PFSH Medical History (Updated 03/16/21 @ 15:56 by Karla Castillo DO) ADHD Alcohol abuse Cocaine abuse Narcotic abuse Surgical History (Updated 07/03/19 @ 10:41 by Allyson Nice MD) H/O umbilical hernia repair Family History Other Family history unobtainable due to patient's condition Social History Smoking/Tobacco Use Status: Current every day Tobacco Type: cigarettes Smoking risk assessment performed?: Yes Alcohol Intake: current Alcohol Intake frequency: a few times a week Drug use: Daily Substance use type: former substance user and marijuana Do you feel safe at home: Yes Do you feel safe in your relationship?: Yes Exam Const General: cooperative and no acute distress HENMT Head: normal to inspection Ears: hearing grossly normal bilaterally, external ears normal and TM's normal bilaterally General nose exam: external nose normal Face and sinus: normal facial exam Throat: posterior oropharynx normal Eyes General: appearance normal, both eyes and all related structures Pupils: PERRL EOM: EOM intact bilaterally Neck Neck: normal visual inspection and No submandibular swelling Lymphatic: no lymphadenopathy noted Chest Chest: normal inspection of the chest and no tenderness Resp Effort & Inspection: normal respiratory effort and able to speak in complete sentences Auscultation: diminished lung sounds on the left throughout and wheezes scattered wheezes Cardio Rate: regular rate Rhythm: regular rhythm GI Inspection: normal to inspection Palpation: soft, not firm, not rigid and nontender Auscultation: normal bowel sounds Skin General skin exam: no rashes or lesions noted Neuro General: patient alert, patient awake and patient oriented x3 Cognition: normal cognition Speech: speech normal Motor: muscle tone normal throughout Sensory Exam: no sensory deficits noted Extrem General: normal to inspection, full ROM, capillary refill normal, no calf tenderness bilaterally and no edema Psych Appearance: grossly normal Mental Status: mental status grossly normal Speech and Movement: speech and movement normal Affect: normal affect Course Vital Signs Vital signs: Vital Signs Temperature 98.2 F 03/16/21 14:30 Pulse 76 03/16/21 14:30 Respiratory Rate 22 03/16/21 14:30 Blood Pressure 110/70 03/16/21 14:30 Pulse Oximetry 94 07/16/21 14:30 Temperature 98.2 F 03/16/21 14:30 Temperature Source Oral 03/16/21 14:30 Pulse 76 03/16/21 14:30 Respiratory Rate 22 03/16/21 14:33 Respiratory Effort 03/16/21 14:33 Respiratory Depth Normal 03/16/21 14:33 Blood Pressure 110/70 03/16/21 14:30 Blood Pressure Position Supine 03/16/21 14:30 Pulse Oximetry 94 03/16/21 14:30 Oxygen Delivery Method Room Air 03/16/21 14:30 Oxygen Flow Rate 0 03/16/21 14:30 Pain Level 3 03/16/21 14:30
--- NOTE | 2021-03-16 14:45 | DI.RAD_ITS ---
Exam(s) XR CHEST 2V PA LATERAL EXAM: XR CHEST 2V PA LATERAL CLINICAL HISTORY: cough, r/o acute disease TECHNIQUE: 2D digital imaging was performed. COMPARISON: CR XR PORTABLE CHEST AP from 07/05/2019 FINDINGS: MEDIASTINUM: Normal. HEART: Normal. PULMONARY VASCULATURE: Normal. LUNGS: Clear. PLEURAL SPACE: No pleural effusion or pneumothorax. BONE:Unremarkable for age. IMPRESSION: No acute abnormality. DATA REPOSITORY: RADIATION DOSE DELIVERED:
[2021-03-16] MEDS: Albuterol/Ipratropium 3 ML UPD VIAL UPD (15:32)
[2021-03-16] MEDS: predniSONE 20 MG TAB 60 MG PO (15:33)
[2021-03-16] MEDS: Albuterol HFA 8 GM 60 PUFF INH IH (16:12)
[2021-03-16] MEDS: Amoxicillin 875/Clav. 125 TAB PO (16:12)
[2021-03-16] MEDS: Inhaler, Assist Device 1 EACH MC (16:13)
[2021-03-18 11:01] LABS: COVID-19 RT-PCR UVMMC Result Negative (Negative)
--- NOTE | 2021-03-19 14:01 | PDOC.ERCMPRO ---
- If Service Date Differs Date of service: 03/19/21 Time of Service: 14:01 Care Management Progress Note Akshat is seen in the ED on 03/16/21 for bronchitis. ED provider requests that CM assist Akshat in establishing care with a PCP but a review of his chart reveals that he is already established at [facility]. KASEY confirms with Mallika RN care professionals, at [facility] that Akshat is still an active patient. Mallika reports that she has attempted to reach Akshat by telephone at the number on file ([phone]) to schedule a follow up appointment but the number is not in service. A letter was mailed to him, asking that he call the [facility] to schedule the appointment.
--- NOTE | 2021-03-19 15:18 | NUR.NOTE ---
1517 Patient aware of Negative Covid results.
== END 2021-03-16 16:14 | disposition home or self-care (01) ==
PROVIDERS: Emergency Provider Physician Assistant; PCP Family Medicine
DX: J20.9 Acute bronchitis, unspecified (principal); F17.210 Nicotine dependence, cigarettes, uncomplicated; Z20.822 Contact with and (suspected) exposure to COVID-19
CPT/HCPCS: 93005; 94640; 99284; U0003; 71046; 93010; 99283; J7512; J7620

== ENCOUNTER 2021-05-16 07:46 | Emergency (ER) | payer MEDICAID, SELFPAY ==
[2021-05-16 07:54] VITALS: BP 127/72; PULSE 54; RESP 16; TEMP 36.6; O2SAT 98
--- NOTE | 2021-05-16 08:27 | ED.GENADUL_ITS ---
Discharge Plan Disposition Patient Disposition: HOME Condition: Stable Discharge Details Clinical Impression: Abscess of axilla, left Primary Care Provider: Adwoa Nixon ED Provider: Sherrie Alicia Home Meds and New Rx's Prescriptions: New naproxen [Naprosyn] 500 mg tablet 500 mg PO BID PRNQty: 10 RF: 0 Continued buprenorphine-naloxone [Suboxone] 8-2 mg Film 2 film buccal DAILY RF: 0 Discharge Instructions Instructions: Abscess (ED) Additional Instructions: Please use warm compresses at least 3-4 times a day to encourage continued drainage. Please contact your primary care physician to arrange follow-up. Please get your Covid vaccine as soon as possible. See attached information form. You can also go to most local pharmacies and receive vaccination for free. Return to the ER for any worsening or new concerning symptoms. Referrals: Adwoa Nixon MD [Primary Care Provider] - Discharge Data Discharge Date/Time-TO BE ENTERED AT DEPARTURE: 05/16/21 09:16 Medical Decision Making <DON Newman - Last Filed: 05/17/21 08:06> Patient appears well, perform successful incision and drainage Indication for antibiotics, no surrounding cellulitis or lymphangitis, afebrile nontoxic Ibuprofen and Tylenol for pain control, patient on Suboxone chronically Wick removal in 72 hours recommended Warm compresses Return discussed patient expressed understanding, alert, oriented, of past week at this exam Medical Records Medical records reviewed: Yes I reviewed the patient's medical records. Lab Data Lab results reviewed: Yes I reviewed the patient's lab results. <Minh Epperson MD - Last Filed: 05/17/21 16:45> Patient seen, examined, and discussed with DON Alicia. To clarify MDM, no indication for antibiotics at this time. I agree with treatment plan as discussed/documented. HPI <DON Newman - Last Filed: 05/17/21 08:06> General Mode of arrival: ambulatory . Date/Time Provider Initiated Documentation: 05/16/21 07:58 . Limitations to Documentation: no limitations . Information obtained by: patient . HPI Narrative: This 40-year-old male with history of drug abuse presents with left axillary abscess persistent for the past week. Denies any history of IV drug abuse. Denies any fever or chills. Denies chest pain or shortness of breath. Denies dizziness or weakness. States the pain is sharp. He feels a lump under arm. Related Data Home Medications Medication Instructions Recorded Confirmed buprenorphine-naloxone [Suboxone] 2 film BUCCAL DAILY 11/29/20 05/16/21 naproxen [Naprosyn] 500 mg PO BID PRN #10 tab 05/16/21 Previous Rx's Medication Instructions Recorded naproxen [Naprosyn] 500 mg PO BID PRN #10 tab 05/16/21 Allergies Allergy/AdvReac Type Severity Reaction Status Date / Time No Known Allergies Allergy Unverified 05/16/21 07:58 General Stated Complaint: Cellulitis TIMOTHY: 4 Review of Systems <DON Newman - Last Filed: 05/17/21 08:06> All systems reviewed & are unremarkable except as noted in HPI and below PFSH <DON Newman - Last Filed: 05/17/21 08:06> Medical History (Updated 05/16/21 @ 08:23 by Minh Epperson MD) ADHD Alcohol abuse Cocaine abuse Narcotic abuse Surgical History (Updated 07/03/19 @ 10:41 by Allyson Nice MD) H/O umbilical hernia repair Family History Other Family history unobtainable due to patient's condition Social History Smoking/Tobacco Use Status: Current every day Tobacco Type: cigarettes Smoking risk assessment performed?: Yes Alcohol Intake: current Alcohol Intake frequency: a few times a week Drug use: Daily Substance use type: former substance user and marijuana Do you feel safe at home: Yes Do you feel safe in your relationship?: Yes Exam <DON Newman - Last Filed: 05/17/21 08:06> Const General: cooperative and no acute distress Course <DON Newman - Last Filed: 05/17/21 08:06> Vital Signs Vital signs: Vital Signs Temperature 36.6 C 05/16/21 07:54 Pulse 54 L 05/16/21 07:54 Respiratory Rate 16 05/16/21 07:54 Blood Pressure 127/72 05/16/21 07:54 Pulse Oximetry 98 05/16/21 07:54 Temperature 36.6 C 05/16/21 07:54 Temperature Source Skin 05/16/21 07:54 Pulse 54 L 05/16/21 07:54 Respiratory Rate 16 05/16/21 07:54 Respiratory Effort Non-Labored 05/16/21 07:58 Blood Pressure 127/72 05/16/21 07:54 Blood Pressure Position Sitting 05/16/21 07:54 Pulse Oximetry 98 05/16/21 07:54 Oxygen Delivery Method Room Air 05/16/21 07:54 Oxygen Flow Rate 0 05/16/21 07:54 Pain Level 6 05/16/21 07:54 Procedures <DON Newman - Last Filed: 05/17/21 08:06> Abscess I/D Site: Upper Extremity Local Anesthetic: Lidocaine 1% Amount of anesthesia used (mL): 50 Technique: Incised with #11 Blade Irrigation: Yes Packing used?: Iodoform Complications: Pain
== END 2021-05-16 09:16 | disposition home or self-care (01) ==
PROVIDERS: Emergency Provider Physician Assistant; PCP Family Medicine
DX: L02.412 Cutaneous abscess of left axilla (principal)
CPT/HCPCS: 10061

== ENCOUNTER 2021-08-09 14:57 | Outpatient (REF) | payer MEDICAID, SELFPAY ==
[2021-08-11 18:24] LABS: COVID-19 RT-PCR UVMMC Result Negative (Negative)
== END 2021-08-09 14:58 | disposition home or self-care (01) ==
LOC: LBN 14:57
PROVIDERS: PCP Family Medicine; Visit Provider Nurse Practitioner Family
DX: Z20.822 Contact with and (suspected) exposure to COVID-19 (principal); J06.9 Acute upper respiratory infection, unspecified
CPT/HCPCS: U0003

== ENCOUNTER 2021-10-18 18:42 | Outpatient (REF) | payer MEDICAID, SELFPAY ==
[2021-10-18 18:20] LABS: ALT 24 U/L (16-63); AST 17 U/L (15-37); Albumin 4.2 g/dL (3.4-5.0); Alkaline Phosphatase 74 U/L (46-116); Anion Gap 10.4 mmol/L (3-11); BUN 16 mg/dL (7-18); Bilirubin, Total 0.6 mg/dL (0.2-1.0); CO2 26.6 mmol/L (21.0-32.0); CREATININE 0.8 mg/dL (0.70-1.30); Calcium 9.4 mg/dL (8.5-10.1); Calculated LDL 95 mg/dL (<100); Chloride 104 mmol/L (98-107); Cholesterol 172 mg/dL (<200); Glucose 98 mg/dL (74-106); HDL Cholesterol 63 mg/dL (40-60); Potassium 4.7 mmol/L (3.5-5.1); Sodium 141 mmol/L (136-145); TSH (W/Ref FT4) 0.71 uIU/mL (0.36-3.74); Total Protein 7.5 g/dL (6.4-8.2); Triglyceride 71 mg/dL (<150)
[2021-10-22 10:57] LABS: Hepatitis C Ab w Rflx HCV PCR Negative (Negative)
[2021-10-22 11:26] LABS: Hepatitis B Surface Ag Negative (Negative)
[2021-10-22 11:31] LABS: Syphilis Serology (RPR) Negative (Negative)
[2021-10-22 12:19] LABS: HIV-1/2 Ag & Ab Screen Negative (Negative)
== END 2021-10-18 18:43 | disposition home or self-care (01) ==
LOC: LBN 18:42
PROVIDERS: PCP Family Medicine; Visit Provider Family Medicine
DX: F39 Unspecified mood [affective] disorder (principal); Z00.00 Encounter for general adult medical examination without abnormal findings; R53.81 Other malaise; Z11.4 Encounter for screening for human immunodeficiency virus [HIV]; Z11.59 Encounter for screening for other viral diseases
CPT/HCPCS: 80053; 80061; 85027; 86803; 87340; 87389; 83036; 84443; 86592

== ENCOUNTER 2021-11-26 10:52 | Outpatient (REF) | payer MEDICAID, SELFPAY | END 2021-11-26 10:53 | disposition home or self-care (01) | LOC: NCHCN 10:52 | PROVIDERS: PCP Family Medicine; Visit Provider Family Medicine | DX: F90.9 Attention-deficit hyperactivity disorder, unspecified type (principal) | CPT/HCPCS: 80360 ==

== ENCOUNTER 2021-12-14 21:57 | Outpatient (REF) | payer MEDICAID, SELFPAY | END 2021-12-14 21:58 | disposition home or self-care (01) | LOC: LBN 21:57 | PROVIDERS: PCP Family Medicine; Visit Provider Physician Assistant Medical | DX: L08.89 Other specified local infections of the skin and subcutaneous tissue (principal) | CPT/HCPCS: 87077; 87070; 87186; 87205 ==

== ENCOUNTER 2022-01-01 21:09 | Emergency (ER) | payer MEDICAID, SELFPAY ==
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
[2022-01-01 21:23] VITALS: BP 98/84; PULSE 105; RESP 20; TEMP 37; O2SAT 96
--- NOTE | 2022-01-01 21:48 | DI.VRAD_ITS ---
PROCEDURE INFORMATION: Exam: CT Head Without Contrast Exam date and time: 01/01/2022 9:33 PM Age: 41 years old Clinical indication: Injury or trauma; Other: Unknown trauma; Abrasion; Forehead; Altered mental status/memory loss; Injury date: 01/01/22; Injury details: Injury, AMS TECHNIQUE: Imaging protocol: Computed tomography of the head without contrast. Radiation optimization: All CT scans at this facility use at least one of these dose optimization techniques: automated exposure control; mA and/or kV adjustment per patient size (includes targeted exams where dose is matched to clinical indication); or iterative reconstruction. COMPARISON: CT HEAD CERVICAL SPINE WO 07/03/2019 8:22 AM FINDINGS: Brain: Cerebral sulci show bilateral symmetry with no supratentorial mass or mass effect detected. Brainstem and cerebellum are unremarkable. There is no evidence of acute intracranial hemorrhage. Cerebral ventricles: Ventricular and cisternal spaces are normal in size and configuration and there is no midline shift or hydrocephalus seen. Paranasal sinuses: There is bilateral maxillary sinus opacification with other paranasal sinuses grossly clear throughout. Mastoid air cells: Grossly clear bilaterally. Bones/joints: Bony calvarium and skull base are intact and no acute fractures are detected. Soft tissues: Unremarkable. IMPRESSION: No evidence of intracranial hemorrhage or other acute intracranial process. Dictated and Authenticated by: Inocente Monteiro MD. Ordering:LUIS EDUARDO Thacker MD
--- NOTE | 2022-01-01 21:52 | W.ED.GENAD ---
Discharge Plan Disposition Patient Disposition: [facility] Condition: Stable Discharge Details Clinical Impression: Head injury, Laceration of scalp Primary Care Provider: Adwoa Nixon ED Provider: Kedar Bales Home Meds and New Rx's Prescriptions: Continued buprenorphine-naloxone [Suboxone] 8-2 mg Film 2 film buccal DAILY 0RF naproxen [Naprosyn] 500 mg tablet 500 mg PO BID PRNQty: 10 0RF Discharge Instructions Instructions: Head Injury (ED), Staple Care (ED) Additional Instructions: CT imaging of your head is unremarkable for any obvious emergent process. The laceration was repaired using 2 phoenix, the phoenix need to be removed in 5 days. You are being released from the ER into the custody of the police as a incapacitated person and will need to be seen by mental health tomorrow before you can be cleared to leave. Please watch for new or worsening symptoms and return to the ER for any concerns. Otherwise I would like you to contact your primary care provider when released from police custody to discuss your ER visit and need for outpatient reevaluation Discharge Data Discharge Date/Time-TO BE ENTERED AT DEPARTURE: 01/01/22 22:04 Medical Decision Making 41-year-old gentleman presents in police custody as an incapacitated person, will be held at the corrections facility overnight and will be evaluated in mental health tomorrow to be cleared to leave. Patient reports that he sustained a head injury from a wooden lamp prior to arrival but denies headache or LOC. He admits to partying, alcohol, drugs, but would not tell me exactly what he used. Overall he is anxious, with mild tachycardia, initially belligerent. I do not smell any alcohol. I do see in his past medical history that he has cocaine abuse, this would certainly fit with his presentation. Tetanus status is up-to-date. Plan is to repair the laceration and given his overall presentation and head injury will obtain head CT. No neck pain whatsoever CT of the head is unremarkable. Patient remains neurologically intact. Laceration closed with 2 phoenix, patient tolerated well. Standard discharge and return precautions were provided. Patient understands, is agreeable to this plan, and has no additional questions or concerns upon discharge. Patient is being released into police custody. This documentation was generated using [employer] system, please disregard any oddities of phrase or misspellings. Medical Records Medical records reviewed: Yes I reviewed the patient's medical records. Imaging Data Radiologic Study: Attestation: I personally reviewed and interpreted this imaging study as follows: Imaging: CT Scan Radiologist's impression: PROCEDURE INFORMATION: Exam: CT Head Without Contrast Exam date and time: 01/01/2022 9:33 PM Age: 41 years old Clinical indication: Injury or trauma; Other: Unknown trauma; Abrasion; Forehead; Altered mental status/memory loss; Injury date: 01/01/22; Injury details: Injury, AMS TECHNIQUE: Imaging protocol: Computed tomography of the head without contrast. Radiation optimization: All CT scans at this facility use at least one of these dose optimization techniques: automated exposure control; mA and/or kV adjustment per patient size (includes targeted exams where dose is matched to clinical indication); or iterative reconstruction. COMPARISON: CT HEAD CERVICAL SPINE WO 07/03/2019 8:22 AM FINDINGS: Brain: Cerebral sulci show bilateral symmetry with no supratentorial mass or mass effect detected. Brainstem and cerebellum are unremarkable. There is no evidence of acute intracranial hemorrhage. Cerebral ventricles: Ventricular and cisternal spaces are normal in size and configuration and there is no midline shift or hydrocephalus seen. Paranasal sinuses: There is bilateral maxillary sinus opacification with other paranasal sinuses grossly clear throughout. Mastoid air cells: Grossly clear bilaterally. Bones/joints: Bony calvarium and skull base are intact and no acute fractures are detected. Soft tissues: Unremarkable. IMPRESSION: No evidence of intracranial hemorrhage or other acute intracranial process. HPI General Mode of arrival: ambulatory (In police custody, ICP). Date/Time Provider Initiated Documentation: 01/01/22 21:11. Limitations to Documentation: no limitations. Information obtained by: patient and police. HPI Narrative: This is a 41-year-old gentleman who presents in police custody for a medical screening examination so that he may go to the local corrections facility, reports that he sustained a head injury, and he was also partying this afternoon. He is currently an ICP and in police custody, tomorrow mental health will evaluate him at the corrections facility and he will not be allowed to leave until he has been cleared by the mental health team. Patient reports that he had a heavy wooden lamp, it was dark and he could not see a close line, the lamp struck the close line and struck him in the head. He denies any other injury or trauma. Denies LOC, headache, visual changes, neck pain. Patient reports partying tells me that he had a couple of drinks earlier in the day and does admit to drug use but will not tell me typically what drug. He denies any suicidal or homicidal ideations to me. Tetanus status is up-to-date. Related Data Home Medications Medication Instructions Recorded Confirmed buprenorphine 8 mg-naloxone 2 mg 2 film BUCCAL DAILY 11/29/20 05/16/21 sublingual film (Suboxone) naproxen 500 mg tablet (Naprosyn) 500 mg PO BID PRN #10 tab 05/16/21 Previous Rx's Medication Instructions Recorded naproxen 500 mg tablet (Naprosyn) 500 mg PO BID PRN #10 tab 05/16/21 Allergies Allergy/AdvReac Type Severity Reaction Status Date / Time No Known Allergies Allergy Unverified 05/16/21 07:58 General Stated Complaint: HeadInjury TIMOTHY: 3 Review of Systems Constitutional Constitutional: Denies fever(s), Denies headache(s) and Denies weakness Eyes Eyes: Denies change in vision ENT Ears, Nose, Mouth, and Throat: Denies headache(s) and Denies neck pain Cardiovascular Cardiovascular: Denies chest pain and Denies dyspnea Respiratory Respiratory: Denies dyspnea Gastrointestinal Gastrointestinal: Denies abdominal pain, Denies nausea and Denies vomiting Musculoskeletal Musculoskeletal: Denies neck pain, Denies numbness and Denies tingling Neurologic Neurologic: Denies headache(s), Denies numbness, Denies tingling and Denies weakness Psychiatric Psychiatric: Denies homicidal ideation and Denies suicidal ideation [facility] All Active Problems Rectal bleeding (Acute) Open wound of left hand (Acute) Acute bronchitis (Acute) Abscess of axilla, left (Acute) Head injury (Acute) Laceration of scalp (Acute) Streptococcal pneumonia (Acute) Respiratory failure, acute (Acute) Discharge planning issues (Acute) DVT prophylaxis (Acute) INDIRA (acute kidney injury) (Acute) Right leg pain (Acute) Aspiration pneumonia (Acute) sputum cx with strep pneumonia Toxic metabolic encephalopathy (Acute) ADHD (Chronic) Alcohol abuse (Chronic) Narcotic abuse (Chronic) Cocaine abuse (Chronic) Surgical History H/O umbilical hernia repair Family History Other Family history unobtainable due to patient's condition Social History Smoking/Tobacco Use Status: Current every day Tobacco Type: cigarettes Smoking risk assessment performed?: Yes Alcohol Intake: current Alcohol Intake frequency: a few times a week Drug use: Daily Substance use type: former substance user and marijuana Do you feel safe at home: Yes Do you feel safe in your relationship?: Yes Exam Const General: cooperative, comfortable, no acute distress and anxious Orientation: alert, awake and oriented x3 HENMT Head: no palpable skull fracture and normocephalic Head images: 1. 1.5 cm laceration. No active bleeding or foreign body. No crepitus. Bleeding is controlled. Face and sinus: normal facial exam Mouth: moist mucous membranes Throat: posterior oropharynx normal Eyes General: appearance normal, both eyes and all related structures Conjunctivae: conjunctivae normal Neck Neck: normal visual inspection, full ROM, trachea midline, supple and nontender Chest Chest: normal inspection of the chest Resp Effort & Inspection: normal respiratory effort and able to speak in complete sentences Auscultation: clear to auscultation bilaterally Cardio Rate: tachycardic (101) Rhythm: regular rhythm GI Inspection: normal to inspection Palpation: soft and nontender Back/Spine/Pelvis Back: No back tenderness Skin General skin exam: no rashes or lesions noted Neuro General: patient alert, patient awake, patient oriented x3, moves all extremities and no focal motor deficits Cranial Nerves: CN's II-XI intact bilaterally Speech: speech normal Gait: normal gait Motor: muscle tone normal throughout, strength 5/5 throughout, no movement abnormalities noted and no fasciculations Sensory Exam: no sensory deficits noted Extrem General: normal to inspection, full ROM and capillary refill normal Psych Appearance: disheveled Mental Status: mental status grossly normal Speech and Movement: pressured speech Mood: anxious mood Affect: animated Attitude: other (Initially belligerent but became cooperative with verbal de-escalation) Thought Process: normal Thought Content: normal Insight: limited Judgment: limited Other: I believe his insight and judgment is limited as he is likely under the influence of a drug, he will not tell me what he took today. Course Vital Signs Vital signs: Vital Signs Temperature 37 C 01/01/22 21:23 Pulse 105 H 01/01/22 21:23 Respiratory Rate 20 01/01/22 21:23 Blood Pressure 98/84 L 01/01/22 21:23 Pulse Oximetry 96 01/01/22 21:23 Temperature 37 C 01/01/22 21:23 Temperature Source Tympanic 01/01/22 21:23 Pulse 105 H 01/01/22 21:23 Respiratory Rate 20 01/01/22 21:23 Respiratory Effort 01/01/22 21:46 Respiratory Depth Normal 01/01/22 21:46 Respiratory Pattern Normal 01/01/22 21:46 Blood Pressure 98/84 L 01/01/22 21:23 Pulse Oximetry 96 01/01/22 21:23 Oxygen Delivery Method Room Air 01/01/22 21:23 Oxygen Flow Rate 0 01/01/22 21:23 Procedures Laceration Laceration 1: Site: scalp Side (If applicable): right Size (cm): 1.5 Description: linear Depth: simple, single layer Pre-repair: wound explored, irrigated extensively and deep structures intact Skin layer closed with: other (Phoenix x 2)
[2022-01-01 21:53] VITALS: BP 127/66
== END 2022-01-01 22:04 | disposition home or self-care (01) ==
PROVIDERS: Emergency Provider Physician Assistant; PCP Family Medicine
DX: S01.01XA Laceration without foreign body of scalp, initial encounter (principal); W22.8XXA Striking against or struck by other objects, initial encounter; R41.82 Altered mental status, unspecified
CPT/HCPCS: 12001; 99285; 70450; 99283

== ENCOUNTER 2022-06-26 16:48 | Outpatient (REF) | payer MEDICAID, SELFPAY ==
[2022-06-29 17:19] LABS: Methylphenidate 22 ng/mL (Cutoff: 10); Ritalinic Acid 15467 ng/mL (Cutoff: 50)
== END 2022-06-26 16:49 | disposition home or self-care (01) ==
LOC: NCHCN 16:48
PROVIDERS: PCP Family Medicine; Visit Provider Family Medicine
DX: F90.8 Attention-deficit hyperactivity disorder, other type (principal); Z51.81 Encounter for therapeutic drug level monitoring
CPT/HCPCS: 80360

== ENCOUNTER 2022-10-05 10:04 | Emergency (ER) | payer MEDICAID, SELFPAY ==
[2022-10-05 10:10] VITALS: BP 145/75; PULSE 50; RESP 17; TEMP 36.4; O2SAT 98
--- NOTE | 2022-10-05 10:23 | ED.GENADUL_ITS ---
Discharge Plan Disposition Patient Disposition: Home Condition: Stable Discharge Details Clinical Impression: Abscess, dental Primary Care Provider: Antolin Keller ED Provider: Jarvis Britton Home Meds and New Rx's Prescriptions: New amoxicillin-pot clavulanate 875-125 mg tablet 1 tab PO Q12H 10 Days Qty: 20 0RF diclofenac potassium 50 mg tablet 50 mg PO TID PRN (Reason: pain) Qty: 10 0RF Continued methadone 10 mg/5 mL solution 76 ml PO DAILY Label Comments: 66 mg daily Discontinued naproxen [Naprosyn] 500 mg tablet 500 mg PO BID PRNQty: 10 0RF Discharge Instructions Instructions: Dental Abscess (ED) Additional Instructions: At this time I feel you have a dental abscess. Please take antibiotics as prescribed and it is very important that you follow-up with [facility]. Please call their office Friday afternoon for arrangement of follow-up appointment and recheck. If you develop any significant worsening of symptoms return to the emergency department for reassessment. Referrals: [facility] [Provider Group] - 3 days Medical Decision Making Patient presenting to the emergency department for chief complaint of dental pain and facial swelling. Patient reports that a few weeks ago he was seen at urgent care and placed on antibiotics for dental pain. He finished them approximately 1 week ago but now over the past 24 to 48 hours he has noted increased facial swelling and increasing return of pain and discomfort. Patient denies any difficulty breathing swallowing or swelling to his tongue or throat. Exam consistent with dental abscess to tooth #30 due to part surely fractured tooth. no signs of deep neck space infection ( Retropharyngeal abscess, Paul's angina, Parapharyngeal space infection, Peritonsillar Abscess ([employer])) or Epiglottitis. Pt non toxic and stable. Patient does have moderate amount of trismus making it difficult to fully assess for ability to drain the abscess. Given this we will place patient on Augmentin and give NSAIDs for pain control. Patient placed on a urgent referral to [facility] for reassessment of dental abscess and definitive care of patient's dental condition. At this time I see no reason for CT imaging but if patient has antibiotic failure or worsening of condition would reconsider this. After discussion of diagnosis and plan of care patient has no further needs, questions, or concerns and states clear understanding to return to the emergency department for any worsening symptoms. This documentation was generated using [employer] system, please disregard any oddities of phrase or misspellings. Medical Records Medical records reviewed: Yes I reviewed the patient's medical records. Medical records narrative: Patient had been on penicillin and clindamycin along with lidocaine oral for dental pain. HPI General Mode of arrival: ambulatory . Date/Time Provider Initiated Documentation: 10/05/22 10:05 . Limitations to Documentation: no limitations . Information obtained by: patient and RN notes reviewed . History of Present Illness 41 year old M presents to the emergency department with the chief complaint of Dental pain, facial swelling, described as moderate, with intensity rated at 8. Quality is described as aching and sharp, and is localized to the mouth. Patient started experiencing this week(s) (3) and it has been constant. No relieving factors improve symptom(s), No exacerbating factors reported . Patient notes no other symptoms.. Patient did receive the following treatments prior to arrival, other (Oral lidocaine) Related Data Home Medications Medication Instructions Recorded Confirmed amoxicillin 875 mg-potassium 1 tab PO Q12H 10 days #20 tabs 10/05/22 clavulanate 125 mg tablet diclofenac potassium 50 mg tablet 50 mg PO TID PRN pain #10 tabs 10/05/22 methadone 10 mg/5 mL oral solution 76 ml PO DAILY 10/05/22 10/05/22 Previous Rx's Medication Instructions Recorded amoxicillin 875 mg-potassium 1 tab PO Q12H 10 days #20 tabs 10/05/22 clavulanate 125 mg tablet diclofenac potassium 50 mg tablet 50 mg PO TID PRN pain #10 tabs 10/05/22 Allergies Allergy/AdvReac Type Severity Reaction Status Date / Time No Known Allergies Allergy Unverified 10/05/22 10:14 General Stated Complaint: DentalOral TIMOTHY: 4 Review of Systems Constitutional Constitutional: Denies chills and Denies fever(s) ENT Ears, Nose, Mouth, and Throat: Reports as per HPI, Denies change in voice, Reports dental pain, Denies dysphagia, Denies throat swelling and Denies tongue swelling Cardiovascular Cardiovascular: Denies chest pain and Denies dyspnea Respiratory Respiratory: Denies dyspnea, Denies stridor and Denies wheezing Gastrointestinal Gastrointestinal: Denies abdominal pain, Denies dysphagia, Denies nausea and Denies vomiting Integumentary/Breasts Skin/Breast: Denies rash Allergic/Immunologic Allergic/Immunologic: Denies throat swelling, Denies tongue swelling and Denies wheezing PFSH All Active Problems Rectal bleeding (Acute) Open wound of left hand (Acute) Acute bronchitis (Acute) Abscess of axilla, left (Acute) Abscess, dental (Acute) Streptococcal pneumonia (Acute) Respiratory failure, acute (Acute) Discharge planning issues (Acute) DVT prophylaxis (Acute) INDIRA (acute kidney injury) (Acute) Right leg pain (Acute) Aspiration pneumonia (Acute) sputum cx with strep pneumonia Toxic metabolic encephalopathy (Acute) ADHD (Chronic) Alcohol abuse (Chronic) Narcotic abuse (Chronic) Cocaine abuse (Chronic) Surgical History H/O umbilical hernia repair Family History Other Family history unobtainable due to patient's condition Social History Smoking/Tobacco Use Status: Current every day Tobacco Type: cigarettes Smoking risk assessment performed?: Yes Alcohol Intake: current Alcohol Intake frequency: a few times a week Drug use: Daily Substance use type: former substance user and marijuana Do you feel safe at home: Yes Do you feel safe in your relationship?: Yes Exam Const General: cooperative Orientation: alert, awake and oriented x3 Limitations: mental status not altered [facility] Head: normal to inspection, normocephalic and atraumatic Ears: hearing grossly normal bilaterally, normal mastoids bilaterally and no periauricular adenopathy General nose exam: external nose normal Face and sinus: other (Swelling to right lower jaw) Mouth: tongue normal, oropharynx normal, no drooling, no muffled voice, normal tongue, no trismus and other (Trismus is present) Teeth and gingiva: caries, poor dentition and other (Partially fractured tooth #30 with erythema/edema surrounding the base ) Throat: posterior oropharynx normal, tonsils normal and uvula midline Eyes General: appearance normal, both eyes and all related structures Pupils: PERRL Neck Neck: normal visual inspection, full ROM, no meningeal signs, trachea midline, supple, no anterior neck swelling and no midline deformity Resp Effort & Inspection: normal respiratory effort, able to speak in complete sentences, not labored and no stridor Back/Spine/Pelvis Cervical Spine: cervical ROM normal Neuro General: patient alert, patient awake and patient oriented x3 Course Vital Signs Vital signs: Vital Signs Temperature 36.4 C 10/05/22 10:10 Pulse 50 L 10/05/22 10:10 Respiratory Rate 17 10/05/22 10:10 Blood Pressure 145/75 H 10/05/22 10:10 Pulse Oximetry 98 10/05/22 10:10 Temperature 36.4 C 10/05/22 10:10 Temperature Source Temporal Artery Scan 10/05/22 10:10 Pulse 50 L 10/05/22 10:10 Respiratory Rate 17 10/05/22 10:10 Respiratory Effort 10/05/22 10:12 Blood Pressure 145/75 H 10/05/22 10:10 Blood Pressure Position Sitting 10/05/22 10:10 Pulse Oximetry 98 10/05/22 10:10 Oxygen Delivery Method Room Air 10/05/22 10:10 Oxygen Flow Rate 0 10/05/22 10:10 Pain Level 10 10/05/22 10:13
--- NOTE | 2022-10-05 10:24 | NUR.NOTE ---
Nursing Note: Referral given to Care Management for [facility] for dental abscess; recheck by Oct.09.
[2022-10-05] MEDS: Ketorolac 30 MG/ML VIAL IM (10:28)
[2022-10-05] MEDS: Amoxicillin 875/Clav. 125 TAB PO (10:29)
== END 2022-10-05 10:36 | disposition home or self-care (01) ==
PROVIDERS: Emergency Provider Nurse Practitioner Family; PCP Family Medicine
DX: K04.7 Periapical abscess without sinus (principal)
CPT/HCPCS: 96372; 99284; J1885

== ENCOUNTER 2024-01-02 20:18 | Emergency (ER) | payer MEDICAID, SELFPAY ==
[2024-01-02] VITALS (91 sets, daily range): BP systolic 110–148; BP diastolic 60–99; PULSE 39–50; RESP 12–21; TEMP 36.5–36.7; O2SAT 92–99
--- NOTE | 2024-01-02 20:00 | RT.EKG_ITS ---
APPROVED REPORT Exam: Resting ECG Reason for Exam: overdose Patient Location: E HR:41 bpm ECG Measurements Heart Rate 41 AXIS MS 161 P -5 QRSd 107 QRS 7 QT 540 T 43 QTc 446 Conclusion Sinus bradycardia...rate< [address] I have reviewed and interpreted ECG and agree with software generated interpretation.
--- NOTE | 2024-01-02 20:20 | NUR.NOTE ---
Pt arrived in care of EMS who provided this RN w/a cigarette container w/ several pills, of which pt was alleged to have taken an unknown amount of w/ unknown intention. Remaining pills are Gabapentin 300mg (2 yellow capsule 215) Guanfacine Hydrochloride XR 4mg (2 oval shaped light green pill APO one side/GUA 4 opposite side) Pantoprazole Sodium 40mg (3 oval shaped white pill 97) and Hydroxyzine Pamoate 25mg (12 half light green half dark green capsule 613) as well as a couple of fruit loops. MD Down[place] w/ this RN while cataloguing pills.
--- NOTE | 2024-01-02 20:21 | ED.GENADUL_ITS ---
Discharge Plan Disposition Patient Disposition: Transfer-Acute Inpatient Care Specific Acute Inpt Facility: [facility] Condition: Stable Discharge Details Clinical Impression: Suicide attempt, Polysubstance overdose Primary Care Provider: Antolin Keller ED Provider: Jan Downs and New Rx's Prescriptions: No Action methadone 10 mg/5 mL solution 76 ml PO DAILY Patient Comments: 66 mg daily diclofenac potassium 50 mg tablet 50 mg PO TID PRN (Reason: pain) Qty: 10 0RF HPI General Mode of arrival: EMS . Date/Time Provider Initiated Documentation: 01/02/24 20:21 . Limitations to Documentation: altered mental status . Information obtained by: EMS and RN notes reviewed . HPI Narrative: Patient brought in to ED by EMS with suspected overdose. Per EMS report patient apparently overdosed on unknown quantity of pills. He was found to have a bunch of pills in his pocket. Also questionable use of opiates with a prior history of substance abuse. Unknown time when this occurred. Patient apparently came out of his apartment and found the supervisor building maintenance. department manager notified a contact in the [employer] program which patient participates in. EMS was activated. Patient is clearly altered and sedated but with stimulation does interact to some degree. Speech is very slurred. Seems to be having myoclonic jerks. He is unable to provide any type of history. Related Data Home Medications Medication Instructions Recorded Confirmed diclofenac potassium 50 mg tablet 50 mg PO TID PRN pain #10 tabs 10/05/22 methadone 10 mg/5 mL oral solution 76 ml PO DAILY 10/05/22 10/05/22 Previous Rx's Medication Instructions Recorded diclofenac potassium 50 mg tablet 50 mg PO TID PRN pain #10 tabs 10/05/22 Allergies Allergy/AdvReac Type Severity Reaction Status Date / Time No Known Allergies Allergy Unverified 10/05/22 10:14 General Stated Complaint: OD/Poison TIMOTHY: 2 Review of Systems Unobtainable due to mental status Exam Narrative Exam Narrative: Const: WDWN male altered, sedated. VS per triage. HEENT: NC/AT. Normal facial exam. Eyes: Normal conjunctiva and sclera. PERRL but small and minimally reactive. Neck: Supple. Trachea midline. Lungs: Variable respirations and at times apneic with rhonchi scattered through lung [place]. Cor: RRR without murmur. Bradycardic GI: Soft and nondistended Neuro: Altered, sedated, slurred speech. Cranial nerves II - XII grossly intact. No gross motor or sensory deficit. Ext: No C/C/E. Course Vital Signs Vital signs: Vital Signs Temperature 97.7 F 01/02/24 20:12 Pulse 50 L 01/02/24 20:12 Respiratory Rate 12 01/02/24 20:12 Blood Pressure 110/66 01/02/24 20:12 Pulse Oximetry 92 01/02/24 20:12 Temperature 97.7 F 01/02/24 20:12 Temperature Source Skin 01/02/24 20:12 Pulse 50 L 01/02/24 20:12 Respiratory Rate 12 01/02/24 20:12 Blood Pressure 110/66 01/02/24 20:12 Blood Pressure Position Sitting 01/02/24 20:12 Pulse Oximetry 92 01/02/24 20:12 Oxygen Delivery Method Room Air 01/02/24 20:12 Oxygen Flow Rate 0 01/02/24 20:12 Pain Level 0 01/02/24 20:12 Procedures Intubation Time out performed: Yes sedative: Etomidate Mg Given: 20 paralytic: Succinylcholine Mg Given: 100 Laryngoscope: Susanna ET Tube Size: 8 ET Tube Uncuffed: No Tube Secured Depth (cm): 24 Tube Secured Location: lips Tube Placement Confirmation: visualized tube passing through cords, equal breath sounds bilaterally, no breath sounds over epigastrum and confirmation by capnometry Patient Tolerated Procedure: no complications Intubation Complications: none Medical Decision Making Patient arrives to ED with polysubstance overdose. We are able to identify the pills that were found in his pocket which included hydroxyzine, gabapentin, guanfacine. Prior history of opiate and cocaine abuse as well as alcohol use. Very altered with slurred speech and sedated but would come around with stimulation. Had not allowed EMS to place IV. IV was established here. Fluids were started. 0.4 Narcan was given with no real change. Patient with episodes of bradycardia as low as the 30s. Seem to average in the 40s and occasionally will get to the 60s. Was having periods of apnea. [place] the airway was not adequately being maintained and elected to intubate for airway protection. Patient was RSI it with etomidate and succinylcholine. Intubated on first attempt with an 8 oh ET tube. Initially sedated with propofol but did require adding fentanyl to keep patient from fighting the vent. NG tube and Basilio catheter placed. After suctioning NG tube was disconnected and 50 g of charcoal was given. Patient's initial laboratory studies with a normal white count and hematocrit. The VBG showed pH 7.4 with a pCO2 of 54 and a bicarb of 34. His pCO2 seem to correspond with his end-tidal CO2. Electrolytes and kidney function were fine. Total bili slightly elevated at 1.4 rest of LFTs normal. Tylenol, aspirin, alcohol all negative. Urine drug screen still pending. Initial portable chest showed the ET tube to be just above the clavicles. This was advanced approximately 2 cm and repeat portable chest shows tip of the ET tube to now be below the clavicle. NG tube is below the diaphragm in the stomach. Right lung looks concerning for probable aspiration. He is however oxygenating fine on FiO2 of 35%. He was placed on a tidal volume of 540 with a rate of 14 and a PEEP of 5. ABG was obtained. He has a pH of 7.44, pCO2 45, pO2 of 103, bicarb 30. We will continue to titrate his oxygen based on pulse ox. His EKG shows sinus bradycardia with normal intervals and axis, normal QT, normal ST. Because of the significant overdose of unknown quantity of presumed multiple substances which include hydroxyzine, gabapentin, guanfacine call was placed to [facility]. Discussed with ICU team. Patient accepted for admission to [facility] ICU under Dr. Blanchard. Will obtain CT head here prior to transfer though I do not suspect any acute intracranial pathology. We have reached out to [facility] but will need to wait until closer to transfer time as there is forecast for fog. If unable to fly will require ambulance transfer with power plant engineer and nurse. Patient is stable in regards to blood pressure even on propofol and fentanyl. He is appropriately sedated at this time. Heart rate remains in the 40s. I did speak with a sales utility [facility]. Patient is followed by [facility] mental health here. She thinks there potentially is an aunt who lives in [place] as the only family that they are aware of. For now Amanda is currently our only contact. She is aware of patient being critical and being transferred to [facility]. Lab Data Lab results reviewed: Yes I reviewed the patient's lab results. ECG Data Attestation: I personally reviewed and interpreted this ECG (s) as follows: Interpretation: See EKG Quality:SDOH Health Related Social Needs: No Data to Display Critical Care Time Critical Care Time Critical Care Time: Yes Total Critical Care Time: 60 Attestation: Upon my evaluation, this patient had a high probability of imminent or life- threatening deterioration, which required my direct attention, intervention, and personal management. I have personally provided 60 minutes of critical care time exclusive of time spent on separately billable procedures. Time includes review of laboratory data, radiology results, discussion with consultants, and monitoring for potential decompensation. Interventions were performed as documented above. PFSH All Active Problems (Updated 01/02/24 @ 22:37 by Jan Downs MD) Polysubstance overdose (Acute) Suicide attempt (Acute) Abscess of axilla, left (Acute) Acute bronchitis (Acute) Open wound of left hand (Acute) Rectal bleeding (Acute) Streptococcal pneumonia (Acute) Respiratory failure, acute (Acute) Discharge planning issues (Acute) DVT prophylaxis (Acute) INDIRA (acute kidney injury) (Acute) Right leg pain (Acute) Aspiration pneumonia (Acute) sputum cx with strep pneumonia Toxic metabolic encephalopathy (Acute) ADHD (Chronic) Alcohol abuse (Chronic) Narcotic abuse (Chronic) Cocaine abuse (Chronic) Surgical History H/O umbilical hernia repair Family History Other Family history unobtainable due to patient's condition Social History Smoking/Tobacco Use Status: Current every day Tobacco Type: cigarettes Smoking risk assessment performed?: Yes Alcohol Intake: current Alcohol Intake frequency: a few times a week Drug use: Daily Substance use type: former substance user and marijuana Do you feel safe at home: Yes Do you feel safe in your relationship?: Yes
[2024-01-02] MEDS: Naloxone 0.4 MG/ML VIAL IVP (20:30)
[2024-01-02 20:43] LABS: Abs Immature Grans 0.03 10^3/uL (0.0-0.06); Absolute Basophil Count 0.09 10^3/uL (0.0-0.2); Absolute Eosinophil Count 0.11 10^3/uL (0.0-0.7); Absolute Lymphocyte Count 1.31 10^3/uL (1.2-3.4); Absolute Monocyte Count 1.07 10^3/uL (0.1-0.8); Absolute Neutrophil Count 7.87 10^3/uL (1.2-6.7); Basophils % 0.9 %; HCT 41.1 % (40.0-50.0); HGB 13.3 g/dL (13.5-17.5); Immature Grans % 0.3 %; Lymphocytes % 12.5 %; MCH 28.1 pg (27.0-33.0); MCHC 32.4 % (32.0-36.0); MCV 87 fL (80-95); MPV 9.5 fL (8.0-11.0); Monocytes % 10.2 %; Neutrophils % 75.1 %; Platelet Count 167 10^3/uL (130-400); RBC 4.74 10^6/uL (4.36-5.78); RDW 12.6 % (11.8-14.1); RDW-SD 40.2 fL; WBC 10.48 10^3/uL (4.4-10.8)
--- NOTE | 2024-01-02 20:45 | DI.RAD_ITS ---
Exam(s) XR PORTABLE CHEST AP EXAM: XR PORTABLE CHEST AP CLINICAL HISTORY: intubation tube placement TECHNIQUE: 2D digital imaging was performed. COMPARISON: CR XR CHEST 2V PA LATERAL from 03/16/2021 FINDINGS: Endotracheal tube has been placed with the tip lying 4 cm above the jv. A nasogastric tube is no miladis which projects in the region of the stomach. There are overlying monitoring leads. LUNGS: Poorly inflated. Pulmonary vascular prominence may be secondary to poor pulmonary inflation. No gross consolidation no pleural abnormality seen. HEART: Normal size. AORTA: Normal diameter. BONES: Unremarkable for age. Soft tissues: Unremarkable. IMPRESSION: Placement of endotracheal tube and nasogastric tube. Limited evaluation of the lungs. DATA REPOSITORY: RADIATION DOSE DELIVERED:
[2024-01-02] MEDS: Lactated Ringers 2,000 ML 1000 ML IV (20:50)
[2024-01-02 20:51] LABS: BE (Venous) 9 mmol/L (-2-3); HCO3 (Venous) 34 mmol/L (23-28); O2 Sat (Venous) 56 %; TCO2 (Venous) 31 mmol/L (24-29); pCO2 (Venous) 54 mmHg (41-51); pO2 (Venous) 28 mmHg
[2024-01-02] MEDS: Etomidate 20 MG/10 ML VIAL IVP (20:51)
[2024-01-02] MEDS: Propofol 200 MG/20 ML VIAL 40 MG IVP (20:57)
[2024-01-02 20:59] LABS: ETHANOL BLOOD < 3.0 mg/dL (<10)
[2024-01-02 21:00] LABS: Acetaminophen < 2 ug/mL (10-30); Salicylate 2.8 mg/dL (<2.8)
[2024-01-02] MEDS: PROPOFOL 1,000 MG/100 ML BTL 26.249 MG IVPB (21:00)
[2024-01-02 21:02] LABS: ALT 35 U/L (16-63); AST 31 U/L (15-37); Albumin 4.1 g/dL (3.4-5.0); Alkaline Phosphatase 73 U/L (46-116); BUN 24 mg/dL (7-18); Bilirubin, Total 1.4 mg/dL (0.2-1.0); CREATININE 1.2 mg/dL (0.70-1.30); Calcium 8.7 mg/dL (8.5-10.1); Chloride 103 mmol/L (98-107); Estimated GFR 76.48 (mL/min/1.73m2); Glucose 160 mg/dL (74-106); Magnesium 2.6 mg/dL (1.8-2.4); Potassium 4.3 mmol/L (3.5-5.1); Sodium 141 mmol/L (136-145); Total Protein 7.3 g/dL (6.4-8.2)
--- NOTE | 2024-01-02 21:15 | DI.RAD_ITS ---
Exam(s) XR PORTABLE CHEST AP EXAM: XR PORTABLE CHEST AP CLINICAL HISTORY: ETT repositioned TECHNIQUE: 2D digital imaging was performed. COMPARISON: CR,XR XR PORTABLE CHEST AP from 01/02/2024 FINDINGS: Exam limited by multiple overlying monitoring leads. The endotracheal tube has been advanced and now lies 3 cm above the jv. No change in position of nasogastric tube. LUNGS: Lungs are not well inflated. No gross consolidation. Pulmonary vascular prominence could be secondary to poor pulmonary inflation. No pleural abnormality seen. HEART: Normal size. AORTA: Normal diameter. BONES: Spine obscured. Soft tissues: Unremarkable. IMPRESSION: Satisfactory positioning of endotracheal tube. DATA REPOSITORY: RADIATION DOSE DELIVERED:
[2024-01-02] MEDS: fentaNYL 100 MCG/2 ML VIAL IVP (21:19)
[2024-01-02] MEDS: fentaNYL 1,000 MCG in Normal Saline 80 ML 8.75 MCG IV (21:30)
[2024-01-02] MEDS: Charcoal/Aqueous 50 GM TUBE NG (21:45)
--- NOTE | 2024-01-02 21:46 | DI.VRAD_ITS ---
PROCEDURE INFORMATION: Exam: XR Chest Exam date and time: 01/02/2024 9:05 PM Age: 43 years old Clinical indication: Device placement; Other: Intubation tube placement TECHNIQUE: Imaging protocol: Radiologic exam of the chest. Views: 1 view. Other technique: Patient is rotated, limiting evaluation. COMPARISON: CR XR CHEST 2V PA LATERAL 03/16/2021 3:16 PM FINDINGS: Tubes, catheters and devices: Tip of ET tube projects over trachea approximately 4.5 cm above jv. Enteric tube followed to left upper quadrant. Lungs: Unremarkable. No consolidation. Pleural spaces: Unremarkable. No pleural effusion. No pneumothorax. Heart/Mediastinum: Right hilum is prominent, most likely due to rotation. No cardiomegaly. Bones/joints: Unremarkable. IMPRESSION: 1. ET tube appears satisfactorily positioned. 2. Prominent right hilum may be due to rotation. Further evaluation with erect PA and lateral views is recommended when clinically feasible. Dictated and Authenticated by: Catarino Diehl MD. Ordering:MANJU Montoya MD
--- NOTE | 2024-01-02 21:48 | DI.VRAD_ITS ---
PROCEDURE INFORMATION: Exam: XR Chest Exam date and time: 01/02/2024 9:24 PM Age: 43 years old Clinical indication: Device placement; Other: Ett repositioned TECHNIQUE: Imaging protocol: Radiologic exam of the chest. Views: 1 view. Other technique: Rotation is less prominent compared to prior. COMPARISON: CR XR PORTABLE CHEST AP 01/02/2024 9:05 PM FINDINGS: Tubes, catheters and devices: Tip of ET tube is now approximately 3 cm above jv. Distal portion of enteric tube projects over left upper quadrant. Lungs: No significant change. No consolidation. Pleural spaces: Unremarkable. No pleural effusion. No pneumothorax. Heart/Mediastinum: Minimal right hilar prominence is likely due to rotation. No cardiomegaly. Bones/joints: Unremarkable. IMPRESSION: Tip of ET tube is now approximately 3 cm above jv. Dictated and Authenticated by: Catarino Diehl MD. Ordering:MANJU Montoya MD
[2024-01-02 22:00] LABS: BE 6 mmol/L (-2-3); HCO3 30 mmol/L (22-26); pCO2 45 mmHg (35-45); pH 7.44 (7.35-7.45); pO2 103 mmHg (80-105); sO2 99 % (95-98); tCO2 27 mmol/L (23-27)
[2024-01-02 22:01] LABS: Site Left Radial
[2024-01-02] MEDS: Succinylcholine 200 MG/10 ML VIAL 100 MG IVP (22:07)
--- NOTE | 2024-01-02 22:08 | NUR.NOTE ---
2256: Met w/ a contact of pt (Amanda Campo) who knows pt thru outreach work w/ [facility] and was contacted by pt's building energy consultant s/p EMS was called and transported pt to ER. Amanda is unsure of if pt has anyone in particular to contact in emergencies. Per Amanda, pt's building energy consultant found pt 'not looking right' outside of his apartment building. When they asked pt if he was OK, pt reportedly responded, 'I just took a bunch of pills and I'm gonna just wander into the [place] and .' Amanda also relayed to this RN that as far as she was aware pt had been sober since September [address] [facility].
[2024-01-02] MEDS: Lactated Ringers 1,000 ML 200 ML IV (22:19)
--- NOTE | 2024-01-02 22:52 | DI.CT_ITS ---
Exam(s) CT HEAD WO EXAM: CT HEAD WO CLINICAL HISTORY: AMS. TECHNIQUE: Imaging Protocol: Axial computed tomography images with coronal and sagittal reformatted images were created and reviewed COMPARISON: CT CT HEAD WO from 01/01/2022 FINDINGS: Ventricles and Extra axial spaces: Normal in size and morphology for the patient's age. Hemorrhage: None. Cerebral parenchyma: No evidence of acute infarct or mass. Midline shift: None. Brainstem/Cerebellum: Normal. Calvarium: Normal. Visualized Paranasal sinuses:Mucous retention cyst right maxillary sinus. Nasogastric tube noted. Mastoids: Clear. Soft Tissues: Unremarkable. ORBITS: Unremarkable. PITUITARY: Not enlarged. IMPRESSION: No acute intracranial process. RADIATION DOSE DELIVERED: Total DLP DATA REPOSITORY: All CT scans at this facility are submitted to the National Radiology Data Registry (NRDR) Dose Index Registry (DIR) with the [employer] (ACR). RADIATION OPTIMIZATION: All CT scans at this facility use at least one of these dose optimization te chniques: automated exposure control; mA and/or kV adjustment per patient size (includes targeted exa ms where dose is matched to clinical indication); or iterative reconstruction.
--- NOTE | 2024-01-02 23:13 | DI.VRAD_ITS ---
PROCEDURE INFORMATION: Exam: CT Head Without Contrast Exam date and time: 01/02/2024 10:27 PM Age: 43 years old Clinical indication: Patient HX: Od, AMS; Additional info: Patient is intubated, best images possible TECHNIQUE: Imaging protocol: Computed tomography of the head without contrast. Radiation optimization: All CT scans at this facility use at least one of these dose optimization techniques: automated exposure control; mA and/or kV adjustment per patient size (includes targeted exams where dose is matched to clinical indication); or iterative reconstruction. COMPARISON: CT HEAD WO 01/01/2022 9:33 PM FINDINGS: Brain: Normal. No hemorrhage. Unremarkable white matter. No mass effect. Cerebral ventricles: No ventriculomegaly. Paranasal sinuses: Visualized sinuses are unremarkable. No fluid levels. Mastoid air cells: Visualized mastoid air cells are well aerated. Bones: Unremarkable. No acute fracture. Soft tissues: Soft tissue swelling left forehead. IMPRESSION: 1. No acute intracranial abnormality. 2. Soft tissue swelling. Dictated and Authenticated by: Catarino Diehl MD. Ordering:MANJU Montoya MD
[2024-01-03] VITALS (13 sets, daily range): BP systolic 139–142; BP diastolic 80–81; PULSE 40; RESP 14; TEMP 35.9–36.5; O2SAT 97–99
[2024-01-03 00:13] LABS: Lactate 4.1 mmol/L (0.6-1.4)
[2024-01-03 00:34] LABS: *AMPHETAMINES SCREEN URINE Negative (Negative); *BARBITURATES SCREEN URINE Negative (Negative); *BENZODIAZEPINES SCREEN URINE Negative (Negative); Cannabinoids THC Positive (Negative); Cocaine Screen,Urine Positive (Negative); METHADONE URINE SCREEN Positive (Negative); OPIATES URINE SCREEN Negative (Negative); Tricyclic Antidepressants Negative (Negative)
[2024-01-03] MEDS: PROPOFOL 1,000 MG/100 ML BTL 40.8 MG (00:35)
== END 2024-01-03 00:45 | disposition short-term general hospital (02) ==
PROVIDERS: Emergency Provider Emergency Medicine; PCP Family Medicine
DX: R41.82 Altered mental status, unspecified (principal); T50.992A Poisoning by other drugs, medicaments and biological substances, intentional self-harm, initial encounter; R00.1 Bradycardia, unspecified; F17.210 Nicotine dependence, cigarettes, uncomplicated
CPT/HCPCS: 31500; 80053; 80307; 82805; 93005; 96360; 96361; 99291; 70450; 71045; 80320; 80329; 83605; 83735; 85025; 93010; J0330; J2310; J2704; J3010

== ENCOUNTER 2024-09-22 10:17 | Emergency (ER) | payer MEDICAID, SELFPAY ==
[2024-09-22 10:29] VITALS: BP 117/70; PULSE 89; RESP 14; TEMP 36.9; O2SAT 98
--- NOTE | 2024-09-22 11:11 | W.ED.GENAD ---
Discharge Plan Discharge Details Chief Complaint: PsychEval Primary Care Provider: Moses Junior ED Provider: Minh Epperson Home Meds and New Rx's Prescriptions: No Action methadone 10 mg/5 mL solution 76 ml PO DAILY Patient Comments: 66 mg daily atomoxetine 40 mg capsule 40 mg PO DAILY clonidine HCl 0.1 mg tablet 0.1 mg PO TID PRN PRN divalproex [Depakote ER] 500 mg tablet extended release 24 hr 1,000 mg PO HS escitalopram oxalate 20 mg tablet 20 mg PO DAILY gabapentin 300 mg capsule 300 mg PO TID guanfacine 4 mg tablet extended release 24 hr 4 mg PO HS hydroxyzine pamoate 25 mg capsule 25 mg PO Q6H PRN lurasidone 40 mg tablet 40 mg PO DAILY Rx Instructions: must administer with food (at least 350 calories) quetiapine 50 mg tablet 50 mg PO QHS Rx Instructions: 1-2 tabs HPI General Mode of arrival: ambulatory. Date/Time Provider Initiated Documentation: 09/22/24 10:39. Limitations to Documentation: no limitations. Information obtained by: patient. HPI Narrative: 43-year-old male with history of polysubstance abuse, opioid use disorder on methadone, depression, anxiety, ADHD, suicide attempt in the past including intentional overdose on medications requiring hospitalization, here today with suicidal thoughts. Patient arrives by law enforcement under a warrant for EE given [facility] concern for poor impulse control, poor insight and judgment, concerning behaviors including threatening suicide. Patient is forthcoming with history at this time and notes that he has been feeling suicidal recently. He attempted overdose on Seroquel 1 to 2 days ago stating he took 10 pills to knock [himself] out. Patient states significant stressors recently including trying to wean off of methadone. He states over the past weeks he has been slowly decreasing his methadone with goal of cessation. He is currently taking 28 mg daily. He did not have his dose today. He does admit to using heroin, cocaine and methamphetamine recently. Patient does have access to a gun. Related Data Home Medications ?Medication ?Instructions ?Recorded ?Confirmed methadone 10 mg/5 mL oral solution 76 ml PO DAILY 10/05/22 10/05/22 atomoxetine 40 mg capsule 40 mg PO DAILY 09/22/24 09/22/24 clonidine HCl 0.1 mg tablet 0.1 mg PO TID PRN PRN 09/22/24 09/22/24 divalproex 500 mg tablet,extended 1,000 mg PO HS 09/22/24 09/22/24 release 24 hr (Depakote ER) escitalopram oxalate 20 mg tablet 20 mg PO DAILY 09/22/24 09/22/24 gabapentin 300 mg capsule 300 mg PO TID 09/22/24 09/22/24 guanfacine 4 mg tablet,extended 4 mg PO HS 09/22/24 09/22/24 release 24 hr hydroxyzine pamoate 25 mg capsule 25 mg PO Q6H PRN 09/22/24 09/22/24 lurasidone 40 mg tablet 40 mg PO DAILY 09/22/24 09/22/24 quetiapine 50 mg tablet 50 mg PO QHS 09/22/24 09/22/24 Allergies Allergy/AdvReac Type Severity Reaction Status Date / Time No Known Allergies Allergy Unverified 10/05/22 10:14 General Stated Complaint: PsychEval TIMOTHY: 2 Review of Systems All systems reviewed & are unremarkable except as noted in HPI and below Constitutional Constitutional: Denies fever(s) ENT Ears, Nose, Mouth, and Throat: Denies sinus pain Comments: sinus congestion Cardiovascular Cardiovascular: Denies chest pain Exam Const General: cooperative HENMT Mouth: moist mucous membranes Other: sinus congestion Eyes Conjunctivae: normal conjunctivae Sclera: normal sclerae Resp Auscultation: clear to auscultation bilaterally, no rales, no rhonchi and no wheezes Cardio Rate: regular rate and not tachycardic Rhythm: regular rhythm GI Palpation: soft, not firm, no guarding, no masses, not rigid and nontender Skin General skin exam: no rashes or lesions noted Neuro General: patient alert, patient awake, patient oriented x3 and tone normal Extrem General: no edema Psych Appearance: grossly normal Mental Status: mental status grossly normal and other (depressed) Speech and Movement: speech and movement normal Mood: other (depressed) Affect: blunted Attitude: cooperative Thought Content: no hallucinations, no homicidality and suicidality Course Vital Signs Vital signs: Vital Signs Temperature 36.9 C 09/22/24 10:29 Pulse 89 09/22/24 10:29 Respiratory Rate 14 09/22/24 10:29 Blood Pressure 117/70 09/22/24 10:29 Pulse Oximetry 98 09/22/24 10:29 Temperature 36.9 C 09/22/24 10:29 Temperature Source Tympanic 09/22/24 10:29 Pulse 89 09/22/24 10:29 Respiratory Rate 14 09/22/24 10:29 Blood Pressure 117/70 09/22/24 10:29 Blood Pressure Position Sitting 09/22/24 10:29 Pulse Oximetry 98 09/22/24 10:29 Oxygen Delivery Method Room Air 09/22/24 10:29 Oxygen Flow Rate 0 09/22/24 10:29 Pain Level 0 09/22/24 10:29 Medical Decision Making 1124 --43-year-old male with history of polysubstance abuse, opioid use disorder on methadone, attempting to wean methadone dosing, depression, anxiety, here with suicidality, arrives with a warrant for EE. Patient is currently cooperative. Patient has intentionally overdosed on Seroquel recently. Consider other potential life-threatening overdose. I will check screening labs including Tylenol and LFTs and UDS. Plan for [facility] crisis evaluation. Nicotine patch for nicotine dependence. 1500 --Labs reviewed: UDS positive for methadone, amphetamines, cocaine, THC. Labs otherwise nondiagnostic. Findings consistent with polysubstance abuse. Patient medically screened and cleared for psychiatric evaluation. 1600??patient noting he has not received his methadone today and is requesting dose of 28 mg. Unable to confirm dosing with [facility] clinic at this time. Plan to initiate dosing based on patient history. Lab Data Lab results reviewed: Yes I reviewed the patient's lab results. Labs: Laboratory Tests Range/Units 09/22/24 09/22/24 11:18 14:44 WBC (4.4-10.8) 10^3/uL 8.56 RBC (4.36-5.78) 10^6/uL 5.17 Hgb (13.5-17.5) g/dL 14.7 Hct (40.0-50.0) % 44.2 MCV (80-95) fL 86 MCH (27.0-33.0) pg 28.4 MCHC (32.0-36.0) % 33.3 RDW (11.8-14.1) % 12.6 Plt Count (130-400) 10^3/uL 220 MPV (8.0-11.0) fL 9.7 Immature Gran % % 0.4 Neutrophils % % 73.1 Lymphocytes % % 17.2 Monocytes % % 7.1 Eosinophils % % 1.6 Basophils % % 0.6 Nucleated RBC % (0.0-0.3) % 0.0 Absolute Neutrophils (1.2-6.7) 10^3/uL 6.26 Absolute Lymphocytes (1.2-3.4) 10^3/uL 1.47 Absolute Monocytes (0.1-0.8) 10^3/uL 0.61 Absolute Eosinophils (0.0-0.7) 10^3/uL 0.14 Absolute Basophils (0.0-0.2) 10^3/uL 0.05 Sodium (136-145) mmol/L 143 Potassium (3.5-5.1) mmol/L 4.1 Chloride (98-107) mmol/L 105 Carbon Dioxide (21.0-32.0) mmol/L 30.1 Anion Gap (3-11) mmol/L 7.9 BUN (7-18) mg/dL 17 Creatinine (0.70-1.30) mg/dL 0.8 Est GFR (CKD-EPI 2020) (mL/min/1.73m2) 111.92 Glucose (74-106) mg/dL 91 Calcium (8.5-10.1) mg/dL 9.1 Total Bilirubin (0.2-1.0) mg/dL 1.05 H AST (15-37) U/L 20 ALT (16-63) U/L 30 Alkaline Phosphatase (46-116) U/L 79 Total Protein (6.4-8.2) g/dL 7.6 Albumin (3.4-5.0) g/dL 3.9 TSH (0.36-3.74) uIU/mL 0.79 Salicylates (<2.8) mg/dL 4.8 Urine Opiates Screen (Negative) Negative Urine Methadone Screen (Negative) Positive A Acetaminophen (10-30) ug/mL < 2 Ur Barbiturates Screen (Negative) Negative Ur Tricyclics Screen (Negative) Negative Ur Amphetamines Screen (Negative) Positive A U Benzodiazepines Scrn (Negative) Negative Urine Cocaine Screen (Negative) Positive A Ur THC Screen (Negative) Positive A Ethyl Alcohol (<10) mg/dL < 3.0 Quality:SDMN Health Related Social Needs: Health related social needs details unable to obtain [facility] All Active Problems Abscess of axilla, left (Acute) Acute bronchitis (Acute) Open wound of left hand (Acute) Rectal bleeding (Acute) Streptococcal pneumonia (Acute) Respiratory failure, acute (Acute) Discharge planning issues (Acute) DVT prophylaxis (Acute) INDIRA (acute kidney injury) (Acute) Right leg pain (Acute) Aspiration pneumonia (Acute) sputum cx with strep pneumonia Toxic metabolic encephalopathy (Acute) ADHD (Chronic) Alcohol abuse (Chronic) Narcotic abuse (Chronic) Cocaine abuse (Chronic) Surgical History H/O umbilical hernia repair Family History Other Family history unobtainable due to patient's condition Social History Smoking/Tobacco Use Status: Current every day Tobacco Type: cigarettes Smoking risk assessment performed?: Yes Alcohol Intake: current Alcohol Intake frequency: a few times a week Drug use: Daily Substance use type: former substance user and marijuana Do you feel safe at home: Yes Do you feel safe in your relationship?: Yes
[2024-09-22 11:25] LABS: Abs Immature Grans 0.03 10^3/uL (0.0-0.06); Absolute Basophil Count 0.05 10^3/uL (0.0-0.2); Absolute Eosinophil Count 0.14 10^3/uL (0.0-0.7); Absolute Lymphocyte Count 1.47 10^3/uL (1.2-3.4); Absolute Monocyte Count 0.61 10^3/uL (0.1-0.8); Absolute Neutrophil Count 6.26 10^3/uL (1.2-6.7); Basophils % 0.6 %; Eosinophils % 1.6 %; HCT 44.2 % (40.0-50.0); HGB 14.7 g/dL (13.5-17.5); Immature Grans % 0.4 %; Lymphocytes % 17.2 %; MCH 28.4 pg (27.0-33.0); MCHC 33.3 % (32.0-36.0); MCV 86 fL (80-95); MPV 9.7 fL (8.0-11.0); Monocytes % 7.1 %; Neutrophils % 73.1 %; Platelet Count 220 10^3/uL (130-400); RBC 5.17 10^6/uL (4.36-5.78); RDW 12.6 % (11.8-14.1); RDW-SD 38.9 fL; WBC 8.56 10^3/uL (4.4-10.8)
[2024-09-22 11:49] LABS: ALT 30 U/L (16-63); AST 20 U/L (15-37); Albumin 3.9 g/dL (3.4-5.0); Alkaline Phosphatase 79 U/L (46-116); Anion Gap 7.9 mmol/L (3-11); BUN 17 mg/dL (7-18); Bilirubin, Total 1.05 mg/dL (0.2-1.0); CO2 30.1 mmol/L (21.0-32.0); CREATININE 0.8 mg/dL (0.70-1.30); Calcium 9.1 mg/dL (8.5-10.1); Chloride 105 mmol/L (98-107); Estimated GFR 111.92 (mL/min/1.73m2); Glucose 91 mg/dL (74-106); Potassium 4.1 mmol/L (3.5-5.1); Salicylate 4.8 mg/dL (<2.8); Sodium 143 mmol/L (136-145); TSH (W/Ref FT4) 0.79 uIU/mL (0.36-3.74); Total Protein 7.6 g/dL (6.4-8.2)
[2024-09-22 11:51] LABS: ETHANOL BLOOD < 3.0 mg/dL (<10)
[2024-09-22] MEDS: Nicotine 14 MG/24 HR PATCH TD (12:00)
[2024-09-22 12:01] LABS: Acetaminophen < 2 ug/mL (10-30)
--- NOTE | 2024-09-22 12:20 | NUR.NOTE ---
Nursing Note: Mulu Ming (Aunt) [phone]
[2024-09-22 15:12] LABS: *AMPHETAMINES SCREEN URINE Positive (Negative); *BARBITURATES SCREEN URINE Negative (Negative); *BENZODIAZEPINES SCREEN URINE Negative (Negative); Cannabinoids THC Positive (Negative); Cocaine Screen,Urine Positive (Negative); METHADONE URINE SCREEN Positive (Negative); OPIATES URINE SCREEN Negative (Negative); Tricyclic Antidepressants Negative (Negative)
[2024-09-22] MEDS: Methadone Liquid 10 MG/ML 28 MG PO (16:45)
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
[2024-09-22 17:14] LABS: Lab Add On Test DONE
[2024-09-22 17:29] LABS: VALPROIC ACID 24.8 ug/mL
--- NOTE | 2024-09-22 17:35 | W.EDPROG ---
Date of service: 09/22/24 Time of Service: 17:35 Medical Decision Making Patient seeking voluntary placement for thoughts of self-harm, currently without new acute complaints, will continue to monitor until safe disposition found Quality:SDOH Health Related Social Needs: Health related social needs details unable to obtain Discharge Plan Discharge Details Chief Complaint: PsychEval Clinical Impression: Thoughts of self harm Primary Care Provider: Moses Junior ED Provider: [facility] Meds and New Rx's Prescriptions: No Action methadone 10 mg/5 mL solution 76 ml PO DAILY Patient Comments: 66 mg daily atomoxetine 40 mg capsule 40 mg PO DAILY clonidine HCl 0.1 mg tablet 0.1 mg PO TID PRN PRN divalproex [Depakote ER] 500 mg tablet extended release 24 hr 1,000 mg PO HS escitalopram oxalate 20 mg tablet 20 mg PO DAILY gabapentin 300 mg capsule 300 mg PO TID guanfacine 4 mg tablet extended release 24 hr 4 mg PO HS hydroxyzine pamoate 25 mg capsule 25 mg PO Q6H PRN lurasidone 40 mg tablet 40 mg PO DAILY Rx Instructions: must administer with food (at least 350 calories) quetiapine 50 mg tablet 50 mg PO QHS Rx Instructions: 1-2 tabs
--- NOTE | 2024-09-22 18:40 | CMSP_ITS ---
Date of service: 09/22/24 Time of Service: 18:40 Care Management Safety Plan Status Status: Voluntary Reason for Wait Reason for Wait: Inpatient Admission Safety Plan Safety Plan: VOLUNTARY FOR INPATIENT PSYCHIATRIC STABILIZATION.? Patient is appropriate in all interactions since arriving at [facility]; Pt has demonstrated appropriate coping and communication skills, has articulated his or her needs and concerns and is fully engaged during staff interactions. Safety plan has been established with patient, and care team, to adhere to patient goals, identify restrictions based on behavioral status, address nutrition, and determine allowed personal belongings, tools for hygiene and personal care. Determine level of activity including ambulation, level of superv ision, visitors, and determine privileges based on behaviors and level of engagement by pt. VOLUNTARY SAFETY PLAN: 1. Will remain on suicide precautions, in paper clothes 2. Will remain in Zone B under direct supervision of one-on-one staff at all times provided by [employer]; LINDA, CLINICAL INFORMATICS MANAGER instructor ballroom dancing. 3. May have paper cups, plates, finger foods as well as a cardboard spoon with which to eat meals. 4. Follow [facility] Management of the Admitted Behavioral Health Patient policy. 5. Shower available in Zone B without restriction. 6. Personal belongings-soft items permitted at RN discretion. Personal baseball cap allowed, at RN discretion. 7. Visitors- supportive visitors, at RN discretion. 8. Activities: soft cart items approved per RN discretion. 9.? Bathroom available in Zone B without restriction. 10. Phone: limited to [facility] cordless phone at RN discretion. Due to VOLUNTARY status, if patient wishes to leave [facility], staff will contact [facility] Crisis Screener ([phone]) and Bargain Table Clerk ([phone]) as soon as possible. In the event of elopement, notify [facility] Police ([phone]). Patient is currently voluntarily at [facility] and seeking inpatient admission when a bed becomes available. [facility] Frontline Awning Craftsman will continue seeking placement. Please contact the Bargain Table Clerk ([phone]) and [facility] Awning Craftsman ([phone]) for any needed changes in the Safety Plan. Safety plan has been provided to interdepartmental care team.
--- NOTE | 2024-09-22 18:40 | PDOC.CMSAFE ---
Date of service: 09/22/24 Time of Service: 18:40 Care Management Safety Plan Status Status: Voluntary Reason for Wait Reason for Wait: Inpatient Admission Safety Plan Safety Plan: VOLUNTARY FOR INPATIENT PSYCHIATRIC STABILIZATION.? Patient is appropriate in all interactions since arriving at [facility]; Pt has demonstrated appropriate coping and communication skills, has articulated his or her needs and concerns and is fully engaged during staff interactions. Safety plan has been established with patient, and care team, to adhere to patient goals, identify restrictions based on behavioral status, address nutrition, and determine allowed personal belongings, tools for hygiene and personal care. Determine level of activity including ambulation, level of supervision, visitors, and determine privileges based on behaviors and level of engagement by pt. VOLUNTARY SAFETY PLAN: 1. Will remain on suicide precautions, in paper clothes 2. Will remain in Zone B under direct supervision of one-on-one staff at all times provided by [employer]; LINDA, CRITICAL CARE RN receipt and report clerk. 3. May have paper cups, plates, finger foods as well as a cardboard spoon with which to eat meals. 4. Follow [facility] Management of the Admitted Behavioral Health Patient policy. 5. Shower available in Zone B without restriction. 6. Personal belongings-soft items permitted at RN discretion. Personal baseball cap allowed, at RN discretion. 7. Visitors- supportive visitors, at RN discretion. 8. Activities: soft cart items approved per RN discretion. 9.? Bathroom available in Zone B without restriction. 10. Phone: limited to [facility] cordless phone at RN discretion. Due to VOLUNTARY status, if patient wishes to leave [facility], staff will contact [facility] Crisis Screener ([phone]) and Counting Machine Operator ([phone]) as soon as possible. In the event of elopement, notify [facility] Police ([phone]). Patient is currently voluntarily at [facility] and seeking inpatient admission when a bed becomes available. [facility] Frontline School Teacher will continue seeking placement. Please contact the Counting Machine Operator ([phone]) and [facility] School Teacher ([phone]) for any needed changes in the Safety Plan. Safety plan has been provided to interdepartmental care team.
--- NOTE | 2024-09-22 18:41 | PDOC.CMPRO ---
Date of service: 09/22/24 Time of Service: 18:41 Care Management Progress Note Progress Note Text Progress Note Text: CM huddled with staff to discuss Akshat's plan of care. Per RN, he has been cooperative and engaging well with staff. Per RN, pt reports he has been reducing his methadone on his own, and has dramatically decreased it, most recently from 55mg to 28mg. Per report, he was initially brought in on a warrant, but after speaking with MD, he decided to remain voluntarily. This will be supported, although if he asks to leave, he will be reassessed by [facility]. Akshat is currently voluntarily seeking inpatient psychiatric care. Safety plan in place; CM will continue to follow. Social Determinants of Health Screening Will the Patient Participate in the Screening?: Declined to provide
[2024-09-23] MEDS: Gabapentin 300 MG CAP PO ×2 (00:02→08:11)
[2024-09-23] MEDS: Divalproex Sodium 500 MG TAB.ER.24H 1000 MG PO (00:02)
[2024-09-23] MEDS: QUEtiapine 50 MG TAB PO (00:02)
--- NOTE | 2024-09-23 06:57 | ED.PROG_ITS ---
Date of service: 09/23/24 Time of Service: 06:57 Medical Decision Making No issues overnight. Need to have nursing confirm with [facility] patient's methadone dosing. Otherwise daily medications are ordered. Remains voluntary for inpatient psychiatric admission. Quality:SDOH Health Related Social Needs: Health related social needs details unable to obtain Discharge Plan Discharge Details Chief Complaint: PsychEval Clinical Impression: Thoughts of self harm Primary Care Provider: Moses Junior ED Provider: Jan Downs [place] Mukesh and New Rx's Prescriptions: No Action methadone 10 mg/5 mL solution 76 ml PO DAILY Patient Comments: 66 mg daily atomoxetine 40 mg capsule 40 mg PO DAILY clonidine HCl 0.1 mg tablet 0.1 mg PO TID PRN PRN divalproex [Depakote ER] 500 mg tablet extended release 24 hr 1,000 mg PO HS escitalopram oxalate 20 mg tablet 20 mg PO DAILY gabapentin 300 mg capsule 300 mg PO TID guanfacine 4 mg tablet extended release 24 hr 4 mg PO HS hydroxyzine pamoate 25 mg capsule 25 mg PO Q6H PRN lurasidone 40 mg tablet 40 mg PO DAILY Rx Instructions: must administer with food (at least 350 calories) quetiapine 50 mg tablet 50 mg PO QHS Rx Instructions: 1-2 tabs
--- NOTE | 2024-09-23 07:05 | W.EDPROG ---
Date of service: 09/23/24 Time of Service: 07:06 Medical Decision Making Care assumed from outgoing provider. Patient currently pending voluntary inpatient placement. Has history of polysubstance abuse, opiate use disorder and presented with thoughts of self-harm. Methadone dose was confirmed by [facility] at 28 mg daily. Last dose given by them September 21. [facility] Report given to Charo Savage, nurse practitioner. Bed will be available around 345 this afternoon Quality:SDOH Health Related Social Needs: Health related social needs details unable to obtain Discharge Plan Disposition Patient Disposition: Psychiatric Hospital/Unit Specific Psychiatric Facility: [facility] Condition: Stable Discharge Details Clinical Impression: Thoughts of self harm Primary Care Provider: Moses Junior ED Provider: Christiano De La Rosa Home Meds and New Rx's Prescriptions: No Action methadone 10 mg/5 mL solution 28 mg PO DAILY Patient Comments: Per Dr. De La Rosa, dose confirmed atomoxetine 40 mg capsule 40 mg PO DAILY clonidine HCl 0.1 mg tablet 0.1 mg PO TID PRN PRN divalproex [Depakote ER] 500 mg tablet extended release 24 hr 1,000 mg PO HS escitalopram oxalate 20 mg tablet 20 mg PO DAILY gabapentin 300 mg capsule 300 mg PO TID guanfacine 4 mg tablet extended release 24 hr 4 mg PO HS hydroxyzine pamoate 25 mg capsule 25 mg PO Q6H PRN lurasidone 40 mg tablet 40 mg PO DAILY Rx Instructions: must administer with food (at least 350 calories) quetiapine 50 mg tablet 50 mg PO QHS Rx Instructions: 1-2 tabs
[2024-09-23 07:26] VITALS: BP 116/73; PULSE 102; RESP 18; TEMP 36.2; O2SAT 98
[2024-09-23] MEDS: Methadone Liquid 10 MG/ML 28 MG PO (08:11)
[2024-09-23] MEDS: Escitalopram 20 MG TAB PO (08:11)
[2024-09-23] MEDS: Lurasidone 40 MG TAB PO (08:11)
--- NOTE | 2024-09-23 16:31 | CMPROGNOTE_ITS ---
Date of service: 09/23/24 Time of Service: 16:31 Care Management Progress Note Progress Note Text Progress Note Text: Akshat was accepted at [facility] today, and was transported via [facility] (EMS). No huddle was conducted as he was accepted early in the day, and safety plan was already in place. Social Determinants of Health Screening Will the Patient Participate in the Screening?: Declined to provide
== END 2024-09-23 14:39 ==
PROVIDERS: Emergency Medicine; Student in an Organized Health Care Education/Training Program; Emergency Provider Emergency Medicine; PCP Student in an Organized Health Care Education/Training Program
DX: R45.88 Nonsuicidal self-harm (principal); F32.A Depression, unspecified; F41.9 Anxiety disorder, unspecified; F17.210 Nicotine dependence, cigarettes, uncomplicated
CPT/HCPCS: 00123; 36415; 80053; 80307; 96127; 99285; 80164; 80320; 80329; 84443; 85025; J3490

== ENCOUNTER 2024-10-06 15:18 | Emergency (ER) | payer MEDICAID, SELFPAY ==
[2024-10-06 15:25] VITALS: BP 161/84; PULSE 97; RESP 16; TEMP 35.9; O2SAT 100
--- OUTSIDE RECORDS SUMMARY | 2024-10-06 15:46 | XMS_ITS | Encounter Summary ---
Author Organization [facility] [place] [place] [address] Care Team Providers Care Bindery Supervisor Name Role Phone Adwoa Nixon MD Primary Care Provider [phone] Encounter Details Date Type Department Care Team (Late st Contact Info) Description 01/02/2024 [place] [id number] Social History Tobacco Use Types Packs/Day Years Used Date Smoking Tobacco: Every Day Cigarettes 1 16 Comments:pt given smoking ce ssation packet Alcohol Use Standard Drinks/Week Comments No 0 (1 standard drink = 0.6 oz pur e alcohol) DH IPV Inpatient Questions Answer Date Recorded Does Anyone Try to Keep You From Having Contact with Others or Doing Things Outside Your Home? no 01/04/2024 Feels Threatened by Someone no 0 12/2023 Feels Unsafe at Home or Work/School no 01/04/2024 Physical Signs of Abuse Present no 01/04/2024 Sex and Gender Information Value Date Recorded Sex Assigned at Not on file Gender Identity Not on file Sexual Orientation Not on file documented as of this encounter Plan of Treatment Not on file documented as of this encounter Procedures Procedure Name Priority Date/Time Associated Diagnosis Comments ECG SCAN Routine 01/02/2024 11:52 PM EDT documented in this encounter Results * Scan Doc: ECG (01/02/2024 11:52 PM EDT) Historical Provider MD [facility]EWART MGR SCAN EX T ORDR/RSLT documented in this encounter Visit Diagnoses Not on filedocumented in this encounter Care Teams Bindery Supervisor Relationship Specialty Start Date End Date Adwoa Nixon MD [facility] ASHLEY CHAUDHARI [facility] [address] [place] [address] PCP - General 12/19/11 documented as of this encounter
--- OUTSIDE RECORDS SUMMARY | 2024-10-06 15:46 | XMS_ITS | Encounter Summary ---
Author Organization [facility] Address [facility] [place] [address] Care Team Providers Care Weigher And Grader Name Role Phone Adwoa Nixon MD Primary Care Provider [phone] Reason for Visit * Auth/Cert (Routine) Specialty Diagnoses / Procedures Referred By Contac t Referred To Contact Diagnoses Toxic encephalopathy Overdose Procedures EMERGENCY IPI Portillo Carrasco MD [facility] [place] [address] [facility] Referral ID Status Reason Start Date Expiration Date Visits Re quested Visits Authorized [id number] 1 1 Encounter Details Date Type Department Care Team (Latest Contact Info) Description 01/03/2024 1:31 AM EDT - 01/09/2024 8:00 PM EDT Hospital Encounter Neurosciences and ENT Unit Level 5 [place] [phone] Apolinar Blnachard MD [facility] [place] [address] Portillo Carrasco MD [facility] [place] [address] Damien Mukherjee MD [facility] [place] [address] [place] [address] Bradycardia; Screening for cardiovascular condition Discharge Disposition: Psych Hospital/Distinct Part of Hospital Social History Tobacco Use Types Packs/Day Years Used Date Smoking Tobacco: Every Day Cigarettes 1 16 Comments:pt given smoking ce ssation packet Alcohol Use Standard Drinks/Week Comments No 0 (1 standard drink = 0.6 oz pur e alcohol) Hunger Vital Sign Answer Date Recorded Within the past 12 months, y ou worried that your food would run out before you got the money to buy more. Never true 01/06/20 24 Within the past 12 months, t he food you bought just didn't last and you didn't have money to get more. Never true 01/06/2024 PRAPARE - Transportation Answer Date Re corded In the past 12 months, has l ack of transportation kept you from medical appointments or from getting medications? Yes 03/2024 In the past 12 months, has l ack of transportation kept you from meetings, work, or from getting things needed for daily living? Yes 01/06/2024 Housing Stability Vital Sign Answer Brad e Recorded In the last 12 months, was t here a time when you were not able to pay the mortgage or rent on time? Yes 01/06/2024 In the last 12 months, how many places have you lived? 2 01/06/2024 In the last 12 months, was t here a time when you did not have a steady place to sleep or slept in a correction (including now)? No 01/06/2024 DH IPV Inpatient Questions Answer Date Recorded Does Anyone Try to Keep You From Having Contact with Others or Doing Things Outside Your Home? no 01/04/2024 Feels Threatened by Someone no 12/2023 Feels Unsafe at Home or Work/School no 01/04/2024 Physical Signs of Abuse Present no 01/04/2024 Sex and Gender Information Value Date Recorded Sex Assigned at Not on file Gender Identity Not on file Sexual Orientation Not on file documented as of this encounter Last Filed Vital Signs Vital Sign Reading Time Taken Comments Blood Pressure 136/78 01/09/2024 3:41 PM EDT Pulse 42 01/06/2024 4:36 AM EDT Temperature 36.4 ??C (97.5 ??F) 01/09/2024 3:41 PM ED T Respiratory Rate 16 01/09/2024 3:41 PM EDT Oxygen Saturation 93% 01/09/2024 3:41 PM EDT Inhaled Oxygen Concentration - - Weight 84.3 kg (185 lb 13.6 oz) 01/04/2024 2:21 AM EDT Height 174 cm (5' 8.5) 01/03/2024 1:19 AM EDT Body Mass Index 27.84 01/03/2024 1:19 AM EDT documented in this encounter Discharge Summaries * Eliud Perez, BAND LEADER - 01/09/2024 4:18 PM EDT Discharge Summary Patient Name: Akshat Serrano Patient Age: 43 y.o. Language: Vietnamese Race: White Ethnicity: Not nor Admit date: 01/03/2024 Discharge date and time: 01/09/2024 Attending Physician: Olaf Tuttle MD Discharge Provider: Eliud Perez APRN Follow-up Recommendations for Providers: Discharged from [facility] under IEA directly to [facility], transported by [employer]. Avoid sedating medications, holding his prior [facility] Has Seroquel 25mg TID PRN available for agitation. Last dose of Methadone was administered in our facility on 01/09/24 at 0819am. Inpatient Provider Contact Information: For questions regarding this document or issues relating to this hospitalization on the Medical Service, please contact your inpatient physician through the [facility] Active Directory Administrator . Issues afterhours and on weekends will be handled by the Hospitalist staff on-call. Discharge Diagnoses (Hospital Problems) and Secondary Diagnoses (Chronic Problems): Active Hospital Problems Diagnosis Toxic encephalopathy Resolved Hospital Problems No resolved problems to display. Active Non-Hospital Problems Diagnosis DIFFICULT AIRWAY Narrowing of airway At risk for danger to others Agitation requiring sedation protocol Pneumonia due to Streptococcus pneumoniae Hypernatremia Respiratory failure with hypoxia Hyperactive behavior AMS (altered mental status) Depression ADHD (attention deficit hyperactivity disorder) Active smoker Herpes Operations/Major Procedures: Operations: Other Major Procedures: None History of Presentation: Per H&P Initial ICU H&P (01/03/24, Dr. Benitez): HPI: Per outside records, Akshat was found at home by landlord lethargic reporting that he had taken abunch of pills wanting to . He was taken by EMS to [facility] emergency department found to have guanfacine, gabapentin and hydroxyzine in his pockets. During his ED evaluation he was lethargic with slurred speech and reported myoclonic jerks. He was found to be bradycardia to the 30s and worsening somnolence. Due to airway concerns he was intubated in the emergency department and [facility] was called for ICU transfer. ED course Vitals: HR 30's, BP stable without pressors Labs: cbc/bmp WNL, Vbg 7.4/54/34 Imaging: CT head without acute process Interventions: Narcan (no change), 2 L IV fluid, 50g activated charcoal, endotracheal intubation. Upon arrival to [address], normotensive, sedated and intubated. ICU clinical course (01/03/24-01/04/24): Patient admitted to ICU intubated and sedated. Bradycardia with stable vitals, did not need atropine or transcutaneous pacing. Patient passed SAT/SBT on day of admission and was extubated on the sameday of 01/03/24. Psychiatry was consulted given suicide attempt with intentional overdose, patient declined voluntary admission therefore meeting IEA (involuntary emergent admission) criteria, need 1:1sitter, cannot leave AMA. ICU course also include intermittent hypotension for which patient received intermittent 500cc-1L fluid boluses. Today: Patient interviewed in the ICU, sitter at bedside. Patient states he does not recall seeing psychiatrist this admission (despite documented visits today and yesterday). He has had some intermittent cough since extubation, but denies chest pain or shortness of breath. Otherwise denies nausea/vomiting/diarrhea, or urinary symptoms. He denies SI/HI/AH/VH at this moment. Hospital Course: #Suicide attempt by overdose (suspect guanfacine, gabapentin, hydroxyzine) #Acute toxic encephalopathy - improving #Hx of MDD #Hx of ADHD #Hx of polysubstance use disorder (OUD on methadone) Psychiatric team was consulted and followed patient during this hospitalization. Patient required aone-to-one sitter and could not leave AGAINST MEDICAL ADVICE. His methadone dose was confirmed and resumed on the seventh. He was on 120 mg of methadone daily. We attempted verbal de-escalation as well as had some antipsychotics on board for agitation management. Court hearing took place on December and it was granted to a psychiatric team the involuntary emergency admission. Patient was transferred to [facility] on 01/09/24. #Bradycardia 2/2 alpha agonist intentional ingestion # Hypotension - stable Patient had intermittent episodes of hypotension and bradycardia which improved over time. He was mainly asymptomatic. He was on telemetry and we repleted his electrolytes. He was evaluated by cardiology team who felt the bradycardia was likely related to alpha agonist overdose and or baseline bradycardia. They did not recommend any intervention during this hospitalization. We avoided AV clint blockers/alpha agonist. Patient did not require atropine IV or TCP. Patient received IV fluids maintenance as needed. #Cough s/p extubation Suspect secondary to upper airway irritation 2/2 intubation vs aspiration pneumonitis/pneumonia. Chest x-ray showed no aspiration #Alcohol use disorder Finished empiric thiamine 500mg x 3 days (01/02- 01/04) Vital Signs at Discharge: BP: 136/78, Heart Rate: 67, Temp: 36.4 ??C (97.5 ??F), Resp: 16, BMI (Calculated): 27.58 Height: 174 cm (5' 8.5) (01/03/24 0119) Weight: 84.3 kg (185 lb 13.6 oz) (01/04/24 0221) Functional and Cognitive Status: Stable at his baseline Important Studies and Lab Data: Labs: Last wbc, hgb, hct plt Recent Labs 01/09/24 0545 WBC 7.9 HGB 14.5 HCT 44.2 Last 3 wbc, hgb, hct plt Recent Labs 01/09/24 0545 01/08/24 0540 01/07/24 0702 WBC 7.9 6.6 8.5 HGB 14.5 14.0 13.0* HCT 44.2 42.5 38.3* PLATELET 192 173 155 Last 3 Lytes Recent Labs 01/09/24 0545 01/08/24 0540 01/07/24 0702 NA 140 140 143 K 4.5 4.2 4.0 CL 103 103 106 CO2 29 28 27 BUN 14 11 11 CREATININE 0.78* 0.81 0.83 Results for orders placed or performed during the hospital encounter of 01/03/24 XR Abdomen 1 view (Generic) (Exam End: 01/03/2024 3:29 AM) Result Value WORKSTATION ID [id number] Impression Satisfactorily positioned orogastric tube. Thank you for letting us participate in the care of this patient. If you are a health care provider and have any questions regarding this report, please contact the number below. For patients who have questions please contact the health wound care rn that requested your imaging first. Chest One View (Exam End: 01/03/2024 3:29 AM) Result Value WORKSTATION ID [id number] Impression Satisfactorily positioned endotracheal tube. Thank you for letting us participate in the care of this patient. If you are a health care provider and have any questions regarding this report, please contact the number below. For patients who have questions please contact the health wound care rn that requested your imaging first. Chest One View (Exam End: 01/04/2024 5:22 PM) Result Value WORKSTATION ID [id number] Impression No aspiration. Thank you for letting us participate in the care of this patient. If you are a health care provider and have any questions regarding this report, please contact the number below. For patients who have questions please contact the health wound care rn that requested your imaging first. Pending Studies and Lab Data: THC Urine marijuana confirmation / Urine tricyclic pending at time ofdischarge Discharge Conditions/Prognosis: Stable Discharge to: [facility] Updated Allergies/ADRs: No Known Allergies Immunizations Given this Hospitalization: There is no immunization history for the selected administration types on file for this patient. Discharge Medications: Your Medications New Medications Dose Details acetaminophen 325 mg tablet Commonly known as: Tylenol Take 2 tablets by mouth every 6 hours as needed. 650 mg Refills: 0 methadone 10 mg/mL oral concentrate Commonly known as: Dolophine Take 12 mLs by mouth daily. Start taking on: January 10, 2024 120 mg Refills: 0 polyethylene glycoL 17 gram oral powder packet Commonly known as: Miralax Take 17 g by mouth daily. 17 g Refills: 0 QUEtiapine 25 mg tablet Commonly known as: SEROquel Take 1 tablet by mouth 3 times daily as needed (for agitation). 25 mg Refills: 0 senna-docusate 8.6-50 mg Tablet Commonly known as: Pericolace Take 2 tablets by mouth 2 times daily. Hold for loose stools 2 tablet Refills: 0 STOPPED Medications divalproex EC [address] tablet Commonly known as: Depakote gabapentin 300 mg capsule Commonly known as: Neurontin thiamine 100 mg Commonly known as: Vitamin B-1 Smoking Status at Discharge: Social History Tobacco Use Smoking Status Every Day Packs/day: 1.00 Years: 16.00 Additional pack years: 0.00 Total pack years: 16.00 Types: Cigarettes Smokeless Tobacco Not on file Tobacco Comments pt given smoking cessation packet Instructions Given to Patient at Discharge: Patient Instructions Discharged to [facility] facility on 5/10 - rest of care per their facility. General Instructions None Discharge References/Attachments None documented in this encounter Discharge Instructions * Patient Instructions* Eliud Perez APRN - 01/05/2024 1:08 PM EDT Discharged to [facility] on 5/10 - rest of care per their facility. documented in this encounter Medications at Time of Discharge Medication Sig Dispensed Refills Start Date End Date acetaminophen (Tylenol) 325 mg tablet Take 2 tablets by mouth every 6 hours as needed. 01/09/2024 methadone (Dolophine) 10 mg/mL oral concentrate Take 12 mLs by mouth daily. 01/10/2024 polyethylene glycoL (Miralax) 17 gram oral powder packet Take 17 g by mouth daily. 01/09/2024 QUEtiapine (SEROquel) 25 mg tablet Take 1 tablet by mouth 3 times daily as needed (for agitation). 01/09/2024 senna-docusate (Pericolace) 8.6-50 mg Tablet Take 2 tablets by mouth 2 times daily. Hold for loose stools 01/09/2024 nicotine (Nicoderm CQ) 21 mg/24 hr Patch 24 hr Change 1 patch on the skin daily. 01/10/2024 documented as of this encounter Progress Notes * Tito Reed RN - 01/09/2024 8:08 PM EDT Patient is discharged with Pillowcase Cleaner. Patient belongings were given to the social worker assistant. Patient vitals and status is intact. Receiving facility was called about patient's status leaving the hospital. * Akua Golden RN - 01/09/2024 7:43 PM EDT OUTCOME EVALUATION NOTE: OUTCOME SUMMARY: Patient is AOx4, poor safety awareness at times. 5/5 strength x4. Methadone cont, COWS q12 H stable. 1:1 sit cont. Patient refuses tele bradycardia at times. PLAN MOVING FORWARD: Psych team granted IEA; planning to send him to [place] [facility] involuntary admission Tonight Name:Catarino Fritz Admission Coordinator Place: [facility] D unit (in [place]) transfer at admission gate Report given to Savannah SIEGEL [place] [facility] [phone] Updates to Jana Campos RN [place] [facility] [phone] Admission packet completed, patient aware of transfer and d/c plan [employer] [employer] to transfer D/c belongings to be completed by oncnathanael RN. INDIVIDUALIZED FALL PREVENTION INTERVENTIONS: Patient-specific fall risk factors per assessment: poor safety awareness at times. Assistance: Independent, SBA, Supervision: Eyes on, Surveillance: Bed locked in low position, call [place] within reach, purposeful hourly rounding, clutter free environment, bed/chair alarm on Patient-specific fall prevention interventions for sensory deficits provided: Yes bed alarm CPG GOAL OUTCOME EVALUATION: Continue care plan as documented. * Eliud Perez APRN - 01/09/2024 4:23 PM EDT Hospital Medicine - Day of Discharge Documentation Discharge diagnosis Active Hospital Problems Diagnosis Toxic encephalopathy Resolved Hospital Problems No resolved problems to display. Secondary Issues Active Non-Hospital Problems Diagnosis DIFFICULT AIRWAY Narrowing of airway At risk for danger to others Agitation requiring sedation protocol Pneumonia due to Streptococcus pneumoniae Hypernatremia Respiratory failure with hypoxia Hyperactive behavior AMS (altered mental status) Depression ADHD (attention deficit hyperactivity disorder) Active smoker Herpes I have personally seen and examined the patient and they are ready for discharge. I spent >30 minutes (Day of Discharge Code 53308) involved in the final examination of the patient, discussion of the hospital stay, instructions for continuing care to all relevant caregivers, and preparation of discharge records, prescriptions and referral forms. Plans Discharge to [facility] Follow-up scheduled - per their facility Please see the Discharge Summary for complete details of any medication changes and additional plans. * Damaris Roberts RN - 01/09/2024 1:28 PM EDT OFFICE OF CARE MANAGEMENT Laundry Pricing Clerk Follow-up Note Damaris Roberts RN reviewed record and discussed patient with Care Team. Patient plan of care discussed in multidisciplinary rounds and assessment for continuing care and discharge needs. Dobby Looms Pegger Fax Request For Discharge Purposes Only: Please fax the following information to: Information Needed: Yu SHERMAN results and DC summary Name:Catarino Fritz Admission Coordinator Place: [facility] Patient is med ready. Laundry Pricing Clerk to follow with team and family to assist with discharge needs when patient ready for discharge. Damaris Roberts RN Case Deputy Court of Care Management * Eliud Perez APRN - 01/09/2024 9:23 AM EDT Hospital Medicine Daily Progress Note Admit Date: 01/03/2024 Hospital Day 6 days Active Hospital Problems Diagnosis Toxic encephalopathy Resolved Hospital Problems No resolved problems to display. 24 Hour Events: - Patient seemed frustrated today about waiting on [facility] bed to open - Last Bowel Movement: ([employer]RES[employer]OND[employer] SCHOOL INSTRUCTOR) - have ordered for bowel regimen - Psych continues following. Patient in queue to go to [facility]. Psychiatric team to notify whenever there is bed availability. Patient will remain with the hospital medicine service for the time being given that he will be involuntarily admitted to the [facility]. - Continue with one to one sitter - can not leave AMA ROS: Anxiety No fever, anorexia No cough, shortness of breath No chest pain, palpitation No abdominal pain, N/V No hematuria, dysuria No constipation or diarrhea No rashes or skin changes No sore throat, nasal congestion Physical Exam Vitals Range last 24 hrs Temperature Temp: [36.6 ??C (97.9 ??F)-37 ??C (98.6 ??F)] Heart Rate Heart Rate: -- Blood Pressure BP: (106-139)/(64-80) Respiratory Rate Resp: [10-18] SpO2 SpO2: [94 %-96 %] Intake/Output Summary (Last 24 hours) at 01/09/2024 0923 Last data filed at 01/09/2024 0839 Gross per 24 hour Intake 590 ml Output -- Net 590 ml Patient Vitals for the past 168 hrs: Weight 01/04/24220 84.3 kg (185 lb 13.6 oz) 01/03/24 0119 83.5 kg (184 lb 1.4 oz) BMI: Weight: 84.3 kg (185 lb 13.6 oz) (01/04/24220) BMI (Calculated): 27.58 BMI Classification: Over Weight Estimated Creatinine Clearance: 129.1 mL/min (A) (by Cockcroft-Gault based on SCr of 0.78 mg/dL (L)). CONSTITUTIONAL: awake, alert, not in acute distress, friendly and cooperative HEENT: PERRLA, EOMI, (-) JVD (-) thyromegaly CHEST: Bradycardia , (-) murmur LUNGS: SCE, resonant to percussion, (-) wheeze, (-) crackles ABDOMEN: soft, NABS, (-) tenderness, (-) hepatomegaly, (-) splenomegaly EXTREMITIES: (-) edema, pulses full and equal SKIN: moist, (-) rash NEURO: No focal deficit, CNII-XII intact PSYCH: normal affect, (-) hallucinations, (-) dysarthria, normal speech Studies reviewed in eDH. Remarkable for the following: LABS: Recent Labs 01/09/24 0501/08/24 0501/07/24 0702 WBC 7.9 6.6 8.5 HGB 14.5 14.0 13.0* HCT 44.2 42.5 38.3* PLATELET 192 173 155 Recent Labs 01/09/2454401/08/24 0540 01/07/24 0702 NA 140 140 143 K 4.5 4.2 4.0 CL 103 103 106 CO2 29 28 27 BUN 14 11 11 CREATININE 0.78* 0.81 0.83 Recent Labs 01/03/24 0130 AST 27 ALT 22 ALKPHOS 64 BILITOT 0.9 Recent Labs 01/09/24 0545 01/08/24 0540 01/07/24 0702 CALCIUM 9.3 8.8 8.8 PHOS 3.7 3.6 3.0 No results for input(s): PT, INR, PTT in the last 168 hours. No results for input(s): CK, TROPONINT in the last 168 hours. FSBG Trend No results for input(s): POCGLU in the last 72 hours. MICRO: No results for input(s): URINECULTURE in the last 720 hours. No results for input(s): GRAMSTAIN, BFCX, LOWERRESPCX, TISSUECX in the last 720 hours. No results for input(s): BLOODCX in the last 720 hours. ECG: Recent Labs 01/07/24 1258 DIAGLINE Sinus bradycardia Otherwise normal ECG When compared with ECG of 04-JAN-2024 13:19, Nonspecific T wave abnormality no longer evident in Inferior leads T wave amplitude has increased in Anterolateral leads QT has shortened Confirmed by MD Yamileth, Sean ([id number]) on 01/07/2024 2:46:32 PM QTCCALC 397 VASCULAR: No results for input(s): VBTEXTRPT in the last 720 hours. IMAGING: Results for orders placed or performed during the hospital encounter of 01/03/24 XR Abdomen 1 view (Generic) (Exam End: 01/03/2024 3:29 AM) Result Value WORKSTATION ID [id number] Impression Satisfactorily positioned orogastric tube. Thank you for letting us participate in the care of this patient. If you are a health care provider and have any questions regarding this report, please contact the number below. For patients who have questions please contact the health wound care rn that requested your imaging first. Chest One View (Exam End: 01/03/2024 3:29 AM) Result Value WORKSTATION ID [id number] Impression Satisfactorily positioned endotracheal tube. Thank you for letting us participate in the care of this patient. If you are a health care provider and have any questions regarding this report, please contact the number below. For patients who have questions please contact the health wound care rn that requested your imaging first. Chest One View (Exam End: 01/04/2024 5:22 PM) Result Value WORKSTATION ID [id number] Impression No aspiration. Thank you for letting us participate in the care of this patient. If you are a health care provider and have any questions regarding this report, please contact the number below. For patients who have questions please contact the health wound care rn that requested your imaging first. Inpatient Medications: Scheduled methadone (Methadose) oral liquid 120 mg Oral Daily nicotine 1 patch Transdermal Daily And Patch Verification 1 patch Transdermal BID Patch Verification 1 patch Transdermal BID enoxaparin 40 mg Subcutaneous Nightly Continuous infusions: PRN: naloxone, acetaminophen, QUEtiapine Assessment Akshat Serrano is a 43 y.o. male with hx of polysubstance use disorder (on methadone at [facility]), ADHD, MDD who presented to [facility] with acute toxic encephalopathy and bradycardia in setting of suspected alpha agonist intentional overdose who was initially admitted to ICU due to intubated for airway protection now being transferred to Hospital Medicine for ongoing medical management while pending IEA admission. Patient bradycardia has been thought to be secondary to alpha agonist ingestion. Bradycardia has not needed interventions such as atropine or transcutaneous pacing. Patient denies any symptoms associated with bradycardia such as headache, chest pain, dyspnea. Will continue to monitor. Intermittent h ypotension was felt to be secondary to low PO intake/hypovolemia rather than from bradycardia. Patient cannot leave AMA. Continue to follow other Psychiatry recommendations. Patient had his court hearing on 01/06 and Psych team was granted IEA so they will be coordinating and planning to [facility] pending bed availability. Plan: #Suicide attempt by overdose (suspect guanfacine, gabapentin, hydroxyzine) #Acute toxic encephalopathy - improving #Hx of MDD #Hx of ADHD #Hx of polysubstance use disorder (OUD on methadone) - Psychiatry consulted and following - Patient requires 1:1 sitter - Patient cannot leave AMA; on IEA - EKG on 01/03 to check QTC: 462 - HOLD all home psychiatric medications, including methadone - Methadone dose confirmed with [facility] . Restarted his 120mg qd on 01/05 AM - Agitation management from Psych recs: Attempt verbal de-escalation first 1st line: Quetiapine 25mg TID PRN (ordered) 2nd line: Haldol 5mg, Ativan 2mg PO or IV/IM if unable to take PO #Bradycardia 2/2 alpha agonist intentional ingestion # Hypotension - resolved - hypotension likely 2/2 to bradycardia. Asymptomatic for the most part. - Continued telemetry monitoring - K>4, Mg>1 - Atropine IV and TCP if bradycardia associated with hemodynamic instability - Cardiology consult: Suspect bradycardia related to alpha agonist overdose and/or baseline bradycardia. Would not recommend any interventions at this time. Avoid AV clint blockers/alpha agonists (guanfacine) #Intermittent hypotension (resolved) - Suspect secondary to hypovolemia rather than bradycardia given patient asymptomatic - Fluid boluses 500cc PRN - Promote nutrition #Cough s/p extubation - Suspect secondary to upper airway irritation 2/ intubation vs aspiration pneumonitis/pneumonia - Repeat CXR: No aspiration #Alcohol use disorder - Finished empiric thiamine 500mg x 3 days (01/02- 01/04) #Routine: DVT PPx: Enoxaparin GI PPx: N/A Lines/Drains: PIV Consults: Psych Code Status: Full Eliud Perez APRN 01/09/2024 * Oh Daily PA - 01/08/2024 2:29 PM EDT Hospital Medicine Daily Progress Note Admit Date: 01/03/2024 Hospital Day 5 days Active Hospital Problems Diagnosis Toxic encephalopathy Resolved Hospital Problems No resolved problems to display. 24 Hour Events: - Patient states he feels fine today. Reports no new medical complaints - Requested to have his face shaved. 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 Patient in queue to go to [facility]. Psychiatric team to notify whenever there is bed availability. Patient will remain with the hospital medicine service for the time being given that he will be involuntarily admitted to the [facility]. - Continue with one to one sitter -Blood pressures and heart rate are stable. Improving - Labs and vital signs stable. - NAEO ROS: Anxiety No fever, anorexia No cough, shortness of breath No chest pain, palpitation No abdominal pain, N/V No hematuria, dysuria No constipation or diarrhea No rashes or skin changes No sore throat, nasal congestion Physical Exam Vitals Range last 24 hrs Temperature Temp: [36.7 ??C (98 ??F)-37 ??C (98.6 ??F)] Heart Rate Heart Rate: -- Blood Pressure BP: (104-138)/(52-73) Respiratory Rate Resp: [16-18] SpO2 SpO2: [94 %-98 %] Intake/Output Summary (Last 24 hours) at 01/08/2024 1430 Last data filed at 01/08/2024 0400 Gross per 24 hour Intake 240 ml Output -- Net 240 ml Patient Vitals for the past 168 hrs: Weight 01/04/24220 84.3 kg (185 lb 13.6 oz) 01/03/24118 83.5 kg (184 lb 1.4 oz) BMI: Weight: 84.3 kg (185 lb 13.6 oz) (01/04/24220) BMI (Calculated): 27.58 BMI Classification: Over Weight Estimated Creatinine Clearance: 124.3 mL/min (by Cockcroft-Gault based on SCr of 0.81 mg/dL). CONSTITUTIONAL: awake, alert, not in acute distress, friendly and cooperative HEENT: PERRLA, EOMI, (-) JVD (-) thyromegaly CHEST: Bradycardia , (-) murmur LUNGS: SCE, resonant to percussion, (-) wheeze, (-) crackles ABDOMEN: soft, NABS, (-) tenderness, (-) hepatomegaly, (-) splenomegaly EXTREMITIES: (-) edema, pulses full and equal SKIN: moist, (-) rash NEURO: No focal deficit, CNII-XII intact PSYCH: normal affect, (-) hallucinations, (-) dysarthria, normal speech Studies reviewed in eDH. Remarkable for the following: LABS: Recent Labs 01/08/24 0540 01/07/24 0702 01/06/24 0610 WBC 6.6 8.5 7.1 HGB 14.0 13.0* 12.9* HCT 42.5 38.3* 38.9* PLATELET 173 155 150 Recent Labs 01/08/24 0540 01/07/24 0702 01/06/24 0610 NA 140 143 140 K 4.2 4.0 3.8 CL 103 106 107 CO2 28 27 27 BUN 11 11 10 CREATININE 0.81 0.83 0.85 Recent Labs 01/03/24 0130 AST 27 ALT 22 ALKPHOS 64 BILITOT 0.9 Recent Labs 01/08/24 0540 01/07/24 0702 01/06/24 0610 CALCIUM 8.8 8.8 8.7 PHOS 3.6 3.0 3.3 No results for input(s): PT, INR, PTT in the last 168 hours. No results for input(s): CK, TROPONINT in the last 168 hours. FSBG Trend No results for input(s): POCGLU in the last 72 hours. MICRO: No results for input(s): URINECULTURE in the last 720 hours. No results for input(s): GRAMSTAIN, BFCX, LOWERRESPCX, TISSUECX in the last 720 hours. No results for input(s): BLOODCX in the last 720 hours. ECG: Recent Labs 01/07/24 1258 DIAGLINE Sinus bradycardia Otherwise normal ECG When compared with ECG of 04-JAN-2024 13:19, Nonspecific T wave abnormality no longer evident in Inferior leads T wave amplitude has increased in Anterolateral leads QT has shortened Confirmed by MD Yamileth, Sean ([id number]) on 01/07/2024 2:46:32 PM QTCCALC 397 VASCULAR: No results for input(s): VBTEXTRPT in the last 720 hours. IMAGING: Results for orders placed or performed during the hospital encounter of 01/03/24 XR Abdomen 1 view (Generic) (Exam End: 01/03/2024 3:29 AM) Result Value WORKSTATION ID [id number] Impression Satisfactorily positioned orogastric tube. Thank you for letting us participate in the care of this patient. If you are a health care provider and have any questions regarding this report, please contact the number below. For patients who have questions please contact the health wound care rn that requested your imaging first. Chest One View (Exam End: 01/03/2024 3:29 AM) Result Value WORKSTATION ID [id number] Impression Satisfactorily positioned endotracheal tube. Thank you for letting us participate in the care of this patient. If you are a health care provider and have any questions regarding this report, please contact the number below. For patients who have questions please contact the health wound care rn that requested your imaging first. Chest One View (Exam End: 01/04/2024 5:22 PM) Result Value WORKSTATION ID [id number] Impression No aspiration. Thank you for letting us participate in the care of this patient. If you are a health care provider and have any questions regarding this report, please contact the number below. For patients who have questions please contact the health wound care rn that requested your imaging first. Inpatient Medications: Scheduled methadone (Methadose) oral liquid 120 mg Oral Daily nicotine 1 patch Transdermal Daily And Patch Verification 1 patch Transdermal BID Patch Verification 1 patch Transdermal BID enoxaparin 40 mg Subcutaneous Nightly Continuous infusions: PRN: naloxone, acetaminophen, QUEtiapine Assessment and plan: Akshat Serrano is a 43 y.o. male with hx of polysubstance use disorder (on methadone at [facility]), ADHD, MDD who presented to [facility] with acute toxic encephalopathy and bradycardia in setting of suspected alpha agonist intentional overdose who was initially admitted to ICU due to intubated for airway protection now being transferred to Hospital Medicine for ongoing medical management while pending IEA admission. Patient bradycardia has been thought to be secondary to alpha agonist ingestion. Bradycardia has not needed interventions such as atropine or transcutaneous pacing. Patient denies any symptoms associated with bradycardia such as headache, chest pain, dyspnea. Will continue to monitor. Intermittent h ypotension was felt to be secondary to low PO intake/hypovolemia rather than from bradycardia. Patient cannot leave AMA. Continue to follow other Psychiatry recommendations. Patient had his court hearing on 01/06 and Psych team was granted IEA so they will be coordinating and planning to send him to [facility] for involuntary admission pending bed availability. #Bradycardia 2/2 alpha agonist intentional ingestion # Hypotension - stable - hypotension likely 2/2 to bradycardia. Asymptomatic for the most part. - Continued telemetry monitoring - K>4, Mg>1 - Atropine IV and TCP if bradycardia associated with hemodynamic instability - Cardiology consult: Suspect bradycardia related to alpha agonist overdose and/or baseline bradycardia. Would not recommend any interventions at this time. Avoid AV clint blockers/alpha agonists (guanfacine) #Intermittent hypotension - Suspect secondary to hypovolemia rather than bradycardia given patient asymptomatic - Fluid boluses 500cc PRN #Cough s/p extubation - Suspect secondary to upper airway irritation 2/2 intubation vs aspiration pneumonitis/pneumonia - Repeat CXR: No aspiration #Alcohol use disorder - Finished empiric thiamine 500mg x 3 days (01/02- 01/04) #Suicide attempt by overdose (suspect guanfacine, gabapentin, hydroxyzine) #Acute toxic encephalopathy - improving #Hx of MDD #Hx of ADHD #Hx of polysubstance use disorder (OUD on methadone) - Psychiatry consulted and following - Patient requires 1:1 sitter - Patient cannot leave AMA; on IEA - EKG on 01/03 to check QTC: 462 - HOLD all home psychiatric medications, including methadone - [place] [facility] Restarted his 120mg qd on 01/05 AM - Notify Psychiatry when medically ready: Plan to [place] hospital admission pending bed availability - Agitation management from Psych recs: Attempt verbal de-escalation first 1st line: Quetiapine 25mg TID PRN (ordered) 2nd line: Haldol 5mg, Ativan 2mg PO or IV/IM if unable to take PO #Routine: DVT PPx: Enoxaparin GI PPx: N/A Lines/Drains: PIV Consults: Psych Code Status: Full DON Herrera 01/08/2024 * Akua Golden RN - 01/08/2024 11:20 AM EDT OUTCOME EVALUATION NOTE: OUTCOME SUMMARY: Patient is AOx4, poor safety awareness at times. 01/03 strength x4. Methadone cont, COWS q12 H stable. 1:1 sit cont. Tele cont, bradycardia. PLAN MOVING FORWARD: Psych team granted IEA; planning to send him to [place] [facility] involuntary admission INDIVIDUALIZED FALL PREVENTION INTERVENTIONS: Patient-specific fall risk factors per assessment: poor safety awareness at times. Assistance: Independent, SBA, Supervision: Eyes on, Surveillance: Bed locked in low position, call [place] within reach, purposeful hourly rounding, clutter free environment, bed/chair alarm on Patient-specific fall prevention interventions for sensory deficits provided: Yes bed alarm CPG GOAL OUTCOME EVALUATION: Continue care plan as documented. * Oh Daily PA - 01/07/2024 6:41 PM EDT Hospital Medicine Daily Progress Note Admit Date: 01/03/2024 Hospital Day 4 days Active Hospital Problems Diagnosis Toxic encephalopathy Resolved Hospital Problems No resolved problems to display. 24 Hour Events: - Patient states he feels fine today. Reports no new medical complaints - Cardio consulted to provide input on bradycardia: No further workup. - Patient had his court hearing today and Psych team was granted IEA so they will be coordinating and planning to send him to [facility] for involuntary admission pending bed availability - Continue with one to one sitter - Heart rate and blood pressures in the lower end but stable- - Labs and vital signs stable. - NAEO ROS: Anxiety No fever, anorexia No cough, shortness of breath No chest pain, palpitation No abdominal pain, N/V No hematuria, dysuria No constipation or diarrhea No rashes or skin changes No sore throat, nasal congestion Physical Exam Vitals Range last 24 hrs Temperature Temp: [36.6 ??C (97.9 ??F)-37 ??C (98.6 ??F)] Heart Rate Heart Rate: -- Blood Pressure BP: (96-134)/(52-71) Respiratory Rate Resp: [16-20] SpO2 SpO2: [93 %-100 %] Intake/Output Summary (Last 24 hours) at 01/07/20241841 Last data filed at 01/07/2024 1700 Gross per 24 hour Intake 1460 ml Output -- Net 1460 ml Patient Vitals for the past 168 hrs: Weight 01/04/24220 84.3 kg (185 lb 13.6 oz) 01/03/24 0119 83.5 kg (184 lb 1.4 oz) BMI: Weight: 84.3 kg (185 lb 13.6 oz) (01/04/24220) BMI (Calculated): 27.58 BMI Classification: Over Weight Estimated Creatinine Clearance: 121.3 mL/min (by Cockcroft-Gault based on SCr of 0.83 mg/dL). CONSTITUTIONAL: awake, alert, not in acute distress, friendly and cooperative HEENT: PERRLA, EOMI, (-) JVD (-) thyromegaly CHEST: Bradycardia , (-) murmur LUNGS: SCE, resonant to percussion, (-) wheeze, (-) crackles ABDOMEN: soft, NABS, (-) tenderness, (-) hepatomegaly, (-) splenomegaly EXTREMITIES: (-) edema, pulses full and equal SKIN: moist, (-) rash NEURO: No focal deficit, CNII-XII intact PSYCH: normal affect, (-) hallucinations, (-) dysarthria, normal speech Studies reviewed in eDH. Remarkable for the following: LABS: Recent Labs 01/07/24 0701/06/24 0601/05/24 0420 WBC 8.5 7.1 8.6 HGB 13.0* 12.9* 12.2* HCT 38.3* 38.9* 36.4* PLATELET 155 150 136* Recent Labs 01/07/24 0701/06/24 0610 01/05/24 0419 NA 143 140 140 K 4.0 3.8 3.7 CL 106 107 107 CO2 27 27 25 BUN 11 10 14 CREATININE 0.83 0.85 0.90 Recent Labs 01/03/24 0130 AST 27 ALT 22 ALKPHOS 64 BILITOT 0.9 Recent Labs 01/07/24 0701/06/24 0610 01/05/24 0419 CALCIUM 8.8 8.7 8.4* PHOS 3.0 3.3 3.0 No results for input(s): PT, INR, PTT in the last 168 hours. No results for input(s): CK, TROPONINT in the last 168 hours. FSBG Trend No results for input(s): POCGLU in the last 72 hours. MICRO: No results for input(s): URINECULTURE in the last 720 hours. No results for input(s): GRAMSTAIN, BFCX, LOWERRESPCX, TISSUECX in the last 720 hours. No results for input(s): BLOODCX in the last 720 hours. ECG: Recent Labs 01/07/24 1258 DIAGLINE Sinus bradycardia Otherwise normal ECG When compared with ECG of 04-JAN-2024 13:19, Nonspecific T wave abnormality no longer evident in Inferior leads T wave amplitude has increased in Anterolateral leads QT has shortened Confirmed by MD Yamileth, Sean ([id number]) on 01/07/2024 2:46:32 PM QTCCALC 397 VASCULAR: No results for input(s): VBTEXTRPT in the last 720 hours. IMAGING: Results for orders placed or performed during the hospital encounter of 01/03/24 XR Abdomen 1 view (Generic) (Exam End: 01/03/2024 3:29 AM) Result Value WORKSTATION ID [id number] Impression Satisfactorily positioned orogastric tube. Thank you for letting us participate in the care of this patient. If you are a health care provider and have any questions regarding this report, please contact the number below. For patients who have questions please contact the health wound care rn that requested your imaging first. Chest One View (Exam End: 01/03/2024 3:29 AM) Result Value WORKSTATION ID [id number] Impression Satisfactorily positioned endotracheal tube. Thank you for letting us participate in the care of this patient. If you are a health care provider and have any questions regarding this report, please contact the number below. For patients who have questions please contact the health wound care rn that requested your imaging first. Chest One View (Exam End: 01/04/2024 5:22 PM) Result Value WORKSTATION ID [id number] Impression No aspiration. Thank you for letting us participate in the care of this patient. If you are a health care provider and have any questions regarding this report, please contact the number below. For patients who have questions please contact the health wound care rn that requested your imaging first. Inpatient Medications: Scheduled methadone (Methadose) oral liquid 120 mg Oral Daily nicotine 1 patch Transdermal Daily And Patch Verification 1 patch Transdermal BID nicotine 1 patch Transdermal Once And Patch Verification 1 patch Transdermal BID enoxaparin 40 mg Subcutaneous Nightly Continuous infusions: PRN: naloxone, acetaminophen, QUEtiapine Assessment and plan: Akshat Serrano is a 43 y.o. male with hx of polysubstance use disorder (on methadone at [facility]), ADHD, MDD who presented to [facility] with acute toxic encephalopathy and bradycardia in setting of suspected alpha agonist intentional overdose who was initially admitted to ICU due to intubated for airway protection now being transferred to Hospital Medicine for ongoing medical management while pending IEA admission. Patient bradycardia has been thought to be secondary to alpha agonist ingestion. Bradycardia has not needed interventions such as atropine or transcutaneous pacing. Patient denies any symptoms associated with bradycardia such as headache, chest pain, dyspnea. Will continue to monitor. Intermittent h ypotension was felt to be secondary to low PO intake/hypovolemia rather than from bradycardia. Patient cannot leave AMA. Continue to follow other Psychiatry recommendations. Patient had his court hearing on 01/06 and Psych team was granted IEA so they will be coordinating and planning to send him [place] [facility] for involuntary admission pending bed availability. #Bradycardia 2/2 alpha agonist intentional ingestion # Hypotension - stable - hypotension likely 2/2 to bradycardia. Asymptomatic for the most part. - Continued telemetry monitoring - K>4, Mg>1 - Atropine IV and TCP if bradycardia associated with hemodynamic instability - Cardiology consult: Suspect bradycardia related to alpha agonist overdose and/or baseline bradycardia. Would not recommend any interventions at this time. Avoid AV clint blockers/alpha agonists (guanfacine) #Intermittent hypotension - Suspect secondary to hypovolemia rather than bradycardia given patient asymptomatic - Fluid boluses 500cc PRN #Cough s/p extubation - Suspect secondary to upper airway irritation 2/2 intubation vs aspiration pneumonitis/pneumonia - Repeat CXR: No aspiration #Alcohol use disorder - Finished empiric thiamine 500mg x 3 days (01/02- 01/04) #Suicide attempt by overdose (suspect guanfacine, gabapentin, hydroxyzine) #Acute toxic encephalopathy - improving #Hx of MDD #Hx of ADHD #Hx of polysubstance use disorder (OUD on methadone) - Psychiatry consulted and following - Patient requires 1:1 sitter - Patient cannot leave AMA; on IEA - EKG on 01/03 to check QTC: 462 - HOLD all home psychiatric medications, including methadone - Methadone dose confirmed with [facility] . Restarted his 120mg qd on 01/05 AM - Notify Psychiatry when medically ready: Plan to [place] hospital admission pending bed availability - Agitation management from Psych recs: Attempt verbal de-escalation first 1st line: Quetiapine 25mg TID PRN (ordered) 2nd line: Haldol 5mg, Ativan 2mg PO or IV/IM if unable to take PO #Routine: DVT PPx: Enoxaparin GI PPx: N/A Lines/Drains: PIV Consults: Psych Code Status: Full DON Herrera 01/07/2024 * Akua Golden RN - 01/07/2024 6:18 PM EDT OUTCOME EVALUATION NOTE: OUTCOME SUMMARY: Patient is AOx4, poor safety awareness at times. 01/03 strength x4. Methadone cont, COWS q12 H stable. 1:1 sit cont. Tele cont, bradycardia. EKG completed this shift, poss t-wave taller, provider aware. PLAN MOVING FORWARD: Psych team granted IEA; planning to send him to [place] [facility] involuntary admission INDIVIDUALIZED FALL PREVENTION INTERVENTIONS: Patient-specific fall risk factors per assessment: poor safety awareness at times. Assistance: Independent, SBA, Supervision: Eyes on, Surveillance: Bed locked in low position, call [place] within reach, purposeful hourly rounding, clutter free environment, bed/chair alarm on Patient-specific fall prevention interventions for sensory deficits provided: Yes bed alarm CPG GOAL OUTCOME EVALUATION: Continue care plan as documented. * Akua Golden RN - 01/07/2024 12:28 PM EDT Provider paged [phone] per television agent: possiblypositional, but his t-wave looks significantly taller/more peaked than it did this morning * Soha Gramajo RN - 01/06/2024 5:09 PM EDT OUTCOME EVALUATION NOTE: OUTCOME SUMMARY: Pt AAOx4, AVSS ex for HR which remains bradycardic, anywhere from 30's - 50's today. MD aware, pt educated to let staff know if he becomes symptomatic. Pt states he occasionally feels dizzy but this is improving this afternoon. Sitter at bedside for SI. Per psych / medicine MD, OK for pt to have noIV and cell phone at bedside. Pt listening to music this afternoon and utilizing art supplies. Up to toilet to void, good appetite. No other issues. PLAN MOVING FORWARD: Continue 1:1 sitter Safety DC planning INDIVIDUALIZED FALL PREVENTION INTERVENTIONS: Patient-specific fall risk factors per assessment: bradycardia, lines/devices, hospital environment Assistance: SBA Supervision: Eyes on / sitter Surveillance: Bed locked in low position, call [place] within reach, purposeful hourly rounding, clutter free environment Patient-specific fall prevention interventions for sensory deficits provided: N/A CPG GOAL OUTCOME EVALUATION: Continue care plan as documented. * Oh Daily PA - 01/06/2024 4:28 PM EDT [facility] Medicine Daily Progress Note Admit Date: 01/03/2024 Hospital Day 3 days Active Hospital Problems Diagnosis Toxic encephalopathy Resolved Hospital Problems No resolved problems to display. 24 Hour Events: - Patient states he feels fine today. Reported some dizziness early which she associated with possible withdrawal symptoms. - Continue with one to one sitter -Methadone dose confirmed with dispensing facility. Received the first dose today -Heart rate and blood pressures in the lower end. Heart rate has been in the high 30s and mid 40s. Blood pressures stable with good MAPs but in the lower end of 100s. Will continue to monitor. - Psych team following. Will be IEA once MR - Labs and vital signs stable. - NAEO ROS: Anxiety No fever, anorexia No cough, shortness of breath No chest pain, palpitation No abdominal pain, N/V No hematuria, dysuria No constipation or diarrhea No rashes or skin changes No sore throat, nasal congestion Physical Exam Vitals Range last 24 hrs Temperature Temp: [36.4 ??C (97.6 ??F)-37.3 ??C (99.1 ??F)] Heart Rate Heart Rate: [36-48] Blood Pressure BP: (84-105)/(39-65) Respiratory Rate Resp: [16-19] SpO2 SpO2: [96 %-98 %] Intake/Output Summary (Last 24 hours) at 01/06/2024 1628 Last data filed at 01/06/2024 1200 Gross per 24 hour Intake 800 ml Output -- Net 800 ml Patient Vitals for the past 168 hrs: Weight 01/04/24220 84.3 kg (185 lb 13.6 oz) 01/03/24 011 83.5 kg (184 lb 1.4 oz) BMI: Weight: 84.3 kg (185 lb 13.6 oz) (01/04/24220) BMI (Calculated): 27.58 BMI Classification: Over Weight Estimated Creatinine Clearance: 118.4 mL/min (by Cockcroft-Gault based on SCr of 0.85 mg/dL). CONSTITUTIONAL: awake, alert, not in acute distress, friendly and cooperative HEENT: PERRLA, EOMI, (-) JVD (-) thyromegaly CHEST: Bradycardia , (-) murmur LUNGS: SCE, resonant to percussion, (-) wheeze, (-) crackles ABDOMEN: soft, NABS, (-) tenderness, (-) hepatomegaly, (-) splenomegaly EXTREMITIES: (-) edema, pulses full and equal SKIN: moist, (-) rash NEURO: No focal deficit, CNII-XII intact PSYCH: normal affect, (-) hallucinations, (-) dysarthria, normal speech Studies reviewed in eDH. Remarkable for the following: LABS: Recent Labs 01/06/24 0601/05/24 0420 01/04/24 0217 WBC 7.1 8.6 7.5 HGB 12.9* 12.2* 11.4* HCT 38.9* 36.4* 34.9* PLATELET 150 136* 133* Recent Labs 01/06/24 0610 01/05/24 0419 01/04/24 021 NA 140 140 140 K 3.8 3.7 3.4* CL 107 107 104 CO2 27 25 27 BUN 10 14 18 CREATININE 0.85 0.90 0.90 Recent Labs 01/03/24 0130 AST 27 ALT 22 ALKPHOS 64 BILITOT 0.9 Recent Labs 01/06/24 0610 01/05/24 0419 01/04/24 0219 CALCIUM 8.7 8.4* 8.4* PHOS 3.3 3.0 3.7 No results for input(s): PT, INR, PTT in the last 168 hours. No results for input(s): CK, TROPONINT in the last 168 hours. FSBG Trend No results for input(s): POCGLU in the last 72 hours. MICRO: No results for input(s): URINECULTURE in the last 720 hours. No results for input(s): GRAMSTAIN, BFCX, LOWERRESPCX, TISSUECX in the last 720 hours. No results for input(s): BLOODCX in the last 720 hours. ECG: Recent Labs 01/04/24 1319 DIAGLINE Normal sinus rhythm Normal ECG When compared with ECG of 03-JAN-2024 01:24, Vent. rate has increased BY 33 BPM T wave inversion no longer evident in Anterior leads QTCCALC 462 VASCULAR: No results for input(s): VBTEXTRPT in the last 720 hours. IMAGING: Results for orders placed or performed during the hospital encounter of 01/03/24 XR Abdomen 1 view (Generic) (Exam End: 01/03/2024 3:29 AM) Result Value WORKSTATION ID [id number] Impression Satisfactorily positioned orogastric tube. Thank you for letting us participate in the care of this patient. If you are a health care provider and have any questions regarding this report, please contact the number below. For patients who have questions please contact the health wound care rn that requested your imaging first. Chest One View (Exam End: 01/03/2024 3:29 AM) Result Value WORKSTATION ID [id number] Impression Satisfactorily positioned endotracheal tube. Thank you for letting us participate in the care of this patient. If you are a health care provider and have any questions regarding this report, please contact the number below. For patients who have questions please contact the health wound care rn that requested your imaging first. Chest One View (Exam End: 01/04/2024 5:22 PM) Result Value WORKSTATION ID [id number] Impression No aspiration. Thank you for letting us participate in the care of this patient. If you are a health care provider and have any questions regarding this report, please contact the number below. For patients who have questions please contact the health wound care rn that requested your imaging first. Inpatient Medications: Scheduled methadone (Methadose) oral liquid 120 mg Oral Daily nicotine 1 patch Transdermal Daily And Patch Verification 1 patch Transdermal BID enoxaparin 40 mg Subcutaneous Nightly Continuous infusions: PRN: naloxone, acetaminophen, QUEtiapine Assessment and plan: Akshat Serrano is a 43 y.o. male with hx of polysubstance use disorder (on methadone at [facility]), ADHD, MDD who presented to [facility] with acute toxic encephalopathy and bradycardia in setting of suspected alpha agonist intentional overdose who was initially admitted to ICU due to intubated for airway protection now being transferred to Hospital Medicine for ongoing medical management while pending IEA admission. Patient bradycardia has been thought to be secondary to alpha agonist ingestion. Bradycardia has not needed interventions such as atropine or transcutaneous pacing. Patient denies any symptoms associated with bradycardia such as headache, chest pain, dyspnea. Will continue to monitor. Intermittent h ypotension was felt to be secondary to low PO intake/hypovolemia rather than from bradycardia. Patient cannot leave AMA. Continue to follow other Psychiatry recommendations. #Bradycardia 2/2 alpha agonist intentional ingestion # Hypotension - stable - hypotension likely 2/2 to bradycardia. Asymptomatic for the most part. - Continued telemetry monitoring - K>4, Mg>1 - Atropine IV and TCP if bradycardia associated with hemodynamic instability #Intermittent hypotension - Suspect secondary to hypovolemia rather than bradycardia given patient asymptomatic - Fluid boluses 500cc PRN #Cough s/p extubation - Suspect secondary to upper airway irritation 2/2 intubation vs aspiration pneumonitis/pneumonia - Repeat CXR: No aspiration #Alcohol use disorder - Finished empiric thiamine 500mg x 3 days (01/02- 01/04) #Suicide attempt by overdose (suspect guanfacine, gabapentin, hydroxyzine) #Acute toxic encephalopathy - improving #Hx of MDD #Hx of ADHD #Hx of polysubstance use disorder (OUD on methadone) - Psychiatry consulted and following - Patient requires 1:1 sitter - Patient cannot leave AMA; on IEA - EKG on 01/03 to check QTC: 462 - HOLD all home psychiatric medications, including methadone - [place] [facility] [place] Restarted his 120mg qd on 01/05 AM - Notify Psychiatry when medically ready - Agitation management from Psych recs: Attempt verbal de-escalation first 1st line: Quetiapine 25mg TID PRN (ordered) 2nd line: Haldol 5mg, Ativan 2mg PO or IV/IM if unable to take PO #Routine: DVT PPx: Enoxaparin GI PPx: N/A Lines/Drains: PIV Consults: Psych Code Status: Full DON Herrera 01/06/2024 * Oh Daily PA - 01/05/2024 2:44 PM EDT Hospital Medicine Daily Progress Note Admit Date: 01/03/2024 Hospital Day 2 days Active Hospital Problems Diagnosis Toxic encephalopathy Resolved Hospital Problems No resolved problems to display. 24 Hour Events: - Patient states he feels fine today. Shared some of the reasons why he wanted to be done living. Denies new medical complaints. No SI today. - Continue with one to one sitter - Was anxious. Received Seroquel with good response - Wanted to get his methadone dose but unable to confirm dose as facility was closed. - No indications of acute opioid withdrawal - Psych team following. Will be IEA once MR - Labs and vital signs stable. - NAEO ROS: Anxiety No fever, anorexia No cough, shortness of breath No chest pain, palpitation No abdominal pain, N/V No hematuria, dysuria No constipation or diarrhea No rashes or skin changes No sore throat, nasal congestion Physical Exam Vitals Range last 24 hrs Temperature Temp: [36.6 ??C (97.8 ??F)-37.2 ??C (99 ??F)] Heart Rate Heart Rate: [41-60] Blood Pressure BP: (92-110)/(53-66) Respiratory Rate Resp: [20-32] SpO2 SpO2: [96 %-99 %] Intake/Output Summary (Last 24 hours) at 01/05/2024 1444 Last data filed at 01/05/2024 0500 Gross per 24 hour Intake 470 ml Output 1050 ml Net -580 ml Patient Vitals for the past 168 hrs: Weight 01/04/24220 84.3 kg (185 lb 13.6 oz) 01/03/24 011 83.5 kg (184 lb 1.4 oz) BMI: Weight: 84.3 kg (185 lb 13.6 oz) (01/04/24220) BMI (Calculated): 27.58 BMI Classification: Over Weight Estimated Creatinine Clearance: 111.9 mL/min (by Cockcroft-Gault based on SCr of 0.9 mg/dL). CONSTITUTIONAL: awake, alert, not in acute distress, friendly and cooperative HEENT: PERRLA, EOMI, (-) JVD (-) thyromegaly CHEST: RRR, (-) murmur LUNGS: SCE, resonant to percussion, (-) wheeze, (-) crackles ABDOMEN: soft, NABS, (-) tenderness, (-) hepatomegaly, (-) splenomegaly EXTREMITIES: (-) edema, pulses full and equal SKIN: moist, (-) rash NEURO: No focal deficit, CNII-XII intact PSYCH: normal affect, (-) hallucinations, (-) dysarthria, normal speech Studies reviewed in eDH. Remarkable for the following: LABS: Recent Labs 01/05/24 0420 01/04/2421601/03/24129 WBC 8.6 7.5 8.8 HGB 12.2* 11.4* 12.2* HCT 36.4* 34.9* 35.7* PLATELET 136* 133* 158 Recent Labs 01/05/24 0419 01/04/24 02101/03/24 013 NA 140 140 142 K 3.7 3.4* 3.9 CL 107 104 104 CO2 25 27 27 BUN 14 18 18 CREATININE 0.90 0.90 0.90 Recent Labs 01/03/24 0130 AST 27 ALT 22 ALKPHOS 64 BILITOT 0.9 Recent Labs 01/05/24 0419 01/04/24 0219 01/03/24 0845 01/03/24 0130 CALCIUM 8.4* 8.4* -- 8.9 PHOS 3.0 3.7 3.6 2.9 No results for input(s): PT, INR, PTT in the last 168 hours. No results for input(s): CK, TROPONINT in the last 168 hours. FSBG Trend Recent Labs 01/03/24 0124 POCGLU 129 MICRO: No results for input(s): URINECULTURE in the last 720 hours. No results for input(s): GRAMSTAIN, BFCX, LOWERRESPCX, TISSUECX in the last 720 hours. No results for input(s): BLOODCX in the last 720 hours. ECG: Recent Labs 01/04/24 1319 DIAGLINE Normal sinus rhythm Normal ECG When compared with ECG of 03-JAN-2024 01:24, Vent. rate has increased BY 33 BPM T wave inversion no longer evident in Anterior leads QTCCALC 462 VASCULAR: No results for input(s): VBTEXTRPT in the last 720 hours. IMAGING: Results for orders placed or performed during the hospital encounter of 01/03/24 XR Abdomen 1 view (Generic) (Exam End: 01/03/2024 3:29 AM) Result Value WORKSTATION ID [id number] Impression Satisfactorily positioned orogastric tube. Thank you for letting us participate in the care of this patient. If you are a health care provider and have any questions regarding this report, please contact the number below. For patients who have questions please contact the health wound care rn that requested your imaging first. Chest One View (Exam End: 01/03/2024 3:29 AM) Result Value WORKSTATION ID [id number] Impression Satisfactorily positioned endotracheal tube. Thank you for letting us participate in the care of this patient. If you are a health care provider and have any questions regarding this report, please contact the number below. For patients who have questions please contact the health wound care rn that requested your imaging first. Chest One View (Exam End: 01/04/2024 5:22 PM) Result Value WORKSTATION ID [id number] Impression No aspiration. Thank you for letting us participate in the care of this patient. If you are a health care provider and have any questions regarding this report, please contact the number below. For patients who have questions please contact the health wound care rn that requested your imaging first. Inpatient Medications: Scheduled nicotine 1 patch Transdermal Daily And Patch Verification 1 patch Transdermal BID enoxaparin 40 mg Subcutaneous Nightly Continuous infusions: PRN: acetaminophen, QUEtiapine Assessment and plan: Akshat Serrano is a 43 y.o. male with hx of polysubstance use disorder (on methadone at [facility]), ADHD, MDD who presented to [facility] with acute toxic encephalopathy and bradycardia in setting of suspected alpha agonist intentional overdose who was initially admitted to ICU due to intubated for airway protection now being transferred to Hospital Medicine for ongoing medical management while pending IEA admission. Patient bradycardia has been thought to be secondary to alpha agonist ingestion. Bradycardia has not needed interventions such as atropine or transcutaneous pacing. Patient denies any symptoms associated with bradycardia such as headache, chest pain, dyspnea. Will continue to monitor. Intermittent h ypotension was felt to be secondary to low PO intake/hypovolemia rather than from bradycardia. Patient cannot leave AMA. Continue to follow other Psychiatry recommendations. #Bradycardia 2/2 alpha agonist intentional ingestion - Continued telemetry monitoring - K>4, Mg>1 - Atropine IV and TCP if bradycardia associated with hemodynamic instability #Intermittent hypotension - Suspect secondary to hypovolemia rather than bradycardia given patient asymptomatic - Fluid boluses 500cc PRN #Cough s/p extubation - Suspect secondary to upper airway irritation 2/2 intubation vs aspiration pneumonitis/pneumonia - Repeat CXR: No aspiration #Alcohol use disorder - Finished empiric thiamine 500mg x 3 days (01/02- 01/04) #Suicide attempt by overdose (suspect guanfacine, gabapentin, hydroxyzine) #Acute toxic encephalopathy - improving #Hx of MDD #Hx of ADHD #Hx of polysubstance use disorder (OUD on methadone) - Psychiatry consulted and following - Patient requires 1:1 sitter - Patient cannot leave AMA; on IEA - EKG on 01/03 to check QTC: 462 - HOLD all home psychiatric medications, including methadone - [place] [place]. Discuss with Psychiatry before restarting while inpatient. Indication for restarting would be if patient symptoms concerningfor opioid withdrawal. - Notify Psychiatry when medically ready - Agitation management from Psych recs: Attempt verbal de-escalation first 1st line: Quetiapine 25mg TID PRN (ordered) 2nd line: Haldol 5mg, Ativan 2mg PO or IV/IM if unable to take PO #Routine: DVT PPx: Enoxaparin GI PPx: N/A Lines/Drains: PIV Consults: Psych Code Status: Full DON Herrera 01/05/2024 * Christine Tolliver MD - 01/04/2024 7:12 AM EDT ICU Blue (#[id number]) Progress Note Patient info: Name: Akshat Serrano : 1980 PCP: Adwoa Nixon MD PCP phone number: [phone] Date of Admission: 01/03/2024 ( Hospital Day 1 day ) Attending:Portillo Carrasco MD ID: Akshat Serrano is a 43 y.o. male w/ PMH of polysubstance use disorder (methadone), ADHD, MDD who presented to [facility] ED with acute toxic encephalopathy and bradycardia in setting of suspected alpha agonist intentional overdose, now transferred to [facility] intubated and sedated. PMH Polysubstance use disorder: currently on methadone 76. Previously admitted to [facility] 2018 for toxic encephalopathy requiring intubation and associated pneumonia.(Prescribed valproate for agitation?) Attention deficit hyperactivity disorder- On guanfacine MDD 24 Hour Events/Subjective: Overnight: - Extubated, sitter in place - Psych consulted, patient cannot leave AMA - Tolerated bedside swallow, regular diet initiated - Overnight (2100), Tmax of 38.1 C, bradycardic to 37, fever resolved after 15 min recheck w/o tylenol, so no workup sent This AM: - At 0600, noted to have BP of 81/47, MAP 58, given 500 cc bolus of LR - Endorsing a feeling of fluid in his chest had been coughing up sputum, can't remember what color. Denies fevers/chills, chest pain, dyspnea, or LE edema. Vasoactive & Sedating Medications: Infusions: Continuous Infusions: Objective: Vitals Last value Range last 24 hrs Temperature Temp: 37.4 ??C (99.3 ??F) Temp: [36.6 ??C (97.9 ??F)-38.1 ??C (100.6 ??F)] Heart Rate Heart Rate: (!) 42 Heart Rate: [39-61] Blood Pressure BP: 91/51 BP: (75-110)/(39-74) Art Line BP BP (Arterial Line): -- MAP (NBP): [52 mmHg-86 mmHg] Respiratory Rate Resp: 18 Resp: [12-34] SpO2 SpO2: 96 % SpO2: [90 %-98 %] Oxygen Delivery Oxygen Therapy O2 Device: None (Room air) O2 Flow Rate (L/min): 2 L/min FiO2 (%): 25 % Intake/Output Summary (Last 24 hours) at 01/04/2024 0716 Last data filed at 01/04/2024 0713 Gross per 24 hour Intake 3113 ml Output 1300 ml Net 1813 ml Patient Vitals for the past 168 hrs: Weight 01/04/24 0221 84.3 kg (185 lb 13.6 oz) 01/03/24 0119 83.5 kg (184 lb 1.4 oz) Admit wt: 83.5 kg Physical Exam: Gen: in bed in NAD. RASS -1 HEENT: anicteric, EOMI intact, CV: RRR, no murmurs/rubs/gallops Resp: CTAB, no crackles/wheezes/ronchi, normal work of breathing Abd: normal bowel sounds, soft, non-tender to palpation, no rebound or guarding Ext: 2+ distal pulses, no pedal edema Neuro: no focal deficits noted, CN II-XII grossly intact, moves all extremities spontaneously Psych: cooperative. Skin: no rashes, lesions, or ulcerations noted Lines/Drains/Airways Lines: PIV 01/03/2499 18 gauge basilic vein (medial side of arm), right (Active) Indication/Daily Review of Necessity fluid therapy intermittent;medication therapy intermittent 01/03/24119 Site Preparation/Maintenance dressing: dry and intact 01/03/24599 Securement catheter stabilization device, secured with 01/03/24119 Patency/Maintenance flushed without difficulty;blood return, able to obtain;alcohol impregnated capapplied 01/03/24119 Phlebitis 0-->no symptoms 01/03/24599 Infiltration 0-->no symptoms 01/03/24599 Site Signs/Symptoms no redness;no swelling;no warmth;no pain;no palpable cord;no streak formation;no drainage 01/03/24119 PIV 01/03/2499 20 gauge metacarpal vein (top of hand), left (Active) Indication/Daily Review of Necessity fluid therapy intermittent;medication therapy intermittent 01/03/24119 Site Preparation/Maintenance dressing: dry and intact 01/03/24599 Securement catheter stabilization device, secured with 01/03/24119 Patency/Maintenance flushed without difficulty;blood return, unable to obtain;alcohol impregnated cap applied 01/03/24119 Phlebitis 0-->no symptoms 01/03/24599 Infiltration 0-->no symptoms 01/03/24599 Site Signs/Symptoms no redness;no swelling;no warmth;no pain;no palpable cord;no streak formation;no drainage 01/03/24119 PIV 01/03/2499 20 gauge median cubital vein (antecubital fossa), left (Active) Indication/Daily Review of Necessity fluid therapy intermittent;medication therapy intermittent 01/03/24119 Site Preparation/Maintenance dressing: dry and intact 01/03/24599 Securement catheter stabilization device, secured with 01/03/24119 Patency/Maintenance flushed without difficulty;blood return, able to obtain;alcohol impregnated capapplied 05/04/24 0120 Phlebitis 0-->no symptoms 01/03/24 06 Infiltration 0-->no symptoms 01/03/24 06 Site Signs/Symptoms no redness;no swelling;no warmth;no pain;no palpable cord;no streak formation;no drainage 01/03/24 012 Labs: Recent Labs 01/04/24 0217 01/03/24 0130 WBC 7.5 8.8 HGB 11.4* 12.2* HCT 34.9* 35.7* PLATELET 133* 158 MCV 83.7 83.0 Recent Labs 01/04/24 0219 01/03/24 0845 01/03/24 0130 NA 140 -- 142 CL 104 -- 104 CO2 27 -- 27 K 3.4* -- 3.9 MAGNESIUM 0.83 -- 1.08* PHOS 3.7 3.6 2.9 CALCIUM 8.4* -- 8.9 BUN 18 -- 18 CREATININE 0.90 -- 0.90 LFTs Recent Labs 01/03/24 013 PROT 6.0* ALBUMIN 3.8 AST 27 ALT 22 ALKPHOS 64 BILITOT 0.9 Coags No results for input(s): INR, PT, PTT, FIBRINOGEN, DDIMER in the last 168 hours. Invalid input(s): THROMBIN TIME Cardiac Enzymes No results for input(s): CK, TROPONINT, PROBNP in the last 168 hours. Endocrine Recent Labs 01/03/24 013 TSH 0.67 No results for input(s): POCGLU in the last 168 hours. Heme No results for input(s): LDH, HAPTOGLOBIN, URICACID in the last 168 hours. ABG (Arterial Blood Gas) No results for input(s): PHART, MNQ1VNH, PO2ART, RAI8HZS, LACTATEVEN, ABB3HZS, PFRATIOART2 in the last 168 hours. VBG (Venous Blood Gas) No results for input(s): PHVEN, QNF9EDG, PO2VEN, RMM8UXG, LACTATEVEN in the last 168 hours. Mixed Venous Sat No results for input(s): S5OVGW2 in the last 168 hours. Microbiology: Microbiology Results (Last 30 days) No results found for the last 720 hours. Imaging: Results for orders placed or performed during the hospital encounter of 05/04/24 XR Abdomen 1 view (Generic) (Exam End: 01/03/2024 3:29 AM) Result Value WORKSTATION ID [id number] Impression Satisfactorily positioned orogastric tube. Thank you for letting us participate in the care of this patient. If you are a health care provider and have any questions regarding this report, please contact the number below. For patients who have questions please contact the health wound care rn that requested your imaging first. Chest One View (Exam End: 01/03/2024 3:29 AM) Result Value WORKSTATION ID [id number] Impression Satisfactorily positioned endotracheal tube. Thank you for letting us participate in the care of this patient. If you are a health care provider and have any questions regarding this report, please contact the number below. For patients who have questions please contact the health wound care rn that requested your imaging first. Medications Scheduled Meds: enoxaparin 40 mg Subcutaneous Nightly acetaminophen 975 mg Oral Q8H MARIBELL Or acetaminophen 1,000 mg Oral Q8H MARIBELL Or acetaminophen 650 mg Rectal Q8H MARIBELL thiamine 500 mg Intravenous Daily Continuous Infusions: PRN Meds:.potassium chloride ER OR potassium chloride ER, atropine, QUEtiapine Assessment & Plan: Akshat Serrano is a 43 y.o. male w/ PMH of polysubstance use disorder (methadone), ADHD, MDD who presented to [facility] ED with acute toxic encephalopathy and bradycardia in setting of suspected alpha agonist overdose trasferred to MICU intubated and sedated. Overall, continues to remain stable/improving after extubation. Bradycardia is slowly improving, and he has not required further pharmacological intervention for this. In terms of fever/hypotension this morning, he has been asymptomatic and responded well to IV fluids. Given reported cough, can consider repeat CXR if concerned about developing pneumonia iso aspiration, but will not start empirically at this time as he does not have leukocytosis or other convincing signs of infection. Appreciate continued involvement from psychiatry. Appropriate for downgrade to medicine service today where further discussions can be had surround voluntary psych admission once medically stabilized. Neuro: #Acute toxic encephalopathy, resolved - Avoid alpha agonists (precedex, clonidine, tizanidine) - Previously on valproate level negative - Utox above w/ fentanyl TCAs + #Polysubstance use disorder - Home methadone 76mg once confirmed by methadone clinic in [facility] (closed today) #Alcohol use disorder - Thiamine 500mg X3 days (01/02-01/04) Cardiovascular #Sinus bradycardia, improving Stable pressures with rates in 30-50s - Continue telemetry monitoring Pulmonary #Cough - CXR on admission was unremarkable - Can consider repeat imaging if concerned about development of aspiration PNA Renal/Fluid/Electrolytes #PATY Gastrointestinal/Metabolic/Nutrition #Nutrition - passed bedside swallow eval, continue regular diet Psychiatry #MDD #Intentional polysubstance overdose - Psychiatry consult - 1:1 sitter, cannot leave AMA - Potential transfer to psych pending medical stabilization and further evaluation #ADHD - Holding home alpha agonist Infection #Brief fever - See pulm above, would recommend further infectious workup if fever recurs/persists ICU Checklist Sedation/Analgesia: N/A Glycemic control: N/A Hyperoxia: titrate to lowest possible support to target SpO2 88% Diet/ Nutrition: Regular diet DVT Prophylaxis: LMWH GI Prophylaxis: N/A Code Status: Attempt Cardiopulmonary Resuscitation - Inpatient Dispo: Downgrade to hospital medicine Christine Tolliver MD Internal Medicine, PGY-2 MICU Blue Team #[id number] 01/04/24 7:16 AM Associated attestation - Portillo Carrasco MD - 01/05/2024 12:04 PM EDT I have seen the patient and reviewed the details of the history, physical exam, and data with Dr. Tolliver. See my separate note for details. Portillo Carrasco MD [facility] Staff Physician, Pulmonary and Critical Care Medicine * Portillo Carrasco MD - 01/04/2024 6:27 AM EDT MICU STAFF PROGRESS NOTE SECTION OF PULMONARY & CRITICAL CARE MEDICINE Date of Service: 01/04/2024 Patient seen and examined, and data reviewed, on critical care rounds. Brief Clinical Summary: 43-year-old with history of polysubstance use disorder on MMT and depression transferred from [facility] ED with acute toxic encephalopathy and bradycardia in the setting of suspected intentional alpha agonist overdose with intubation for airway protection. Per documentation, this is believed to have been an act of intentional self-harm. Extubated uneventfully 01/02 without any further concerning ongoingtoxidrome. Awaiting further psychiatry evaluation. Significant Events Last 24 Hours/Interval History: -Extubated yesterday uneventfully. No further concerning toxidrome. Continued bradycardia during sleep without hypotension. HR improves with wakefulness -Seen by psychiatry but not able to fully engage in conversation -Unable to leave AMA Active Problems and Important Diagnoses: Suicide attempt Polysubstance intentional overdose including alpha antagonist, gabapentin Bradycardia Major depression Current Medications: Scheduled Meds: enoxaparin 40 mg Subcutaneous Nightly acetaminophen 975 mg Oral Q8H MARIBELL Or acetaminophen 1,000 mg Oral Q8H MARIBELL Or acetaminophen 650 mg Rectal Q8H MARIBELL thiamine 500 mg Intravenous Daily Continuous Infusions: PRN Meds: potassium chloride ER OR potassium chloride ER, atropine, QUEtiapine Objective: Last value Range last 24 hrs Temperature Temp: 37.2 ??C (99 ??F) Temp: [36.6 ??C (97.9 ??F)-38.1 ??C (100.6 ??F)] Heart Rate Heart Rate: 52 Heart Rate: [39-61] Blood Pressure BP: (!) 81/47 BP: (75-110)/(39-74) Respiratory Rate Resp: 28 Resp: [12-34] SpO2 SpO2: 94 % SpO2: [90 %-98 %] Admit Weight 83.5 kg 24-hr fluid balance: 2.6 / 1.3 = +1.3 UOP 800 Drips: Current Ventilator settings: N/A Physical Exam NAD, awake, alert, interactive Pertinent Labs: HCO3 27 AG 9 BUN 18 Cr 0.9 Glucose 123 LFTs WNL TSH 0.67 Dig neg [place] neg Valproic neg Utox +cocaine, methadone, cannabinoids, fentanyl, TCA Micro None New Diagnostics/Imaging: CXR 01/02 ETT 3 cm above jv, enteral tube below diaphragm, clear lung [place], no effusions, no focal airspace disease XR Abd 01/02 - no radio-opaque material seen Assessment & Plan: 43M initially intubated for airway protection in setting of intentional polysubstance overdose withresulting encephalopathy and bradycardia without hypotension. Suspect this is due to alpha-agonist,possibly concurrent gabapentin. Absent hypotension/shock making BB or CCB ingestion very unlikely. A lpha agonist has long half-life and this likely explains the ongoing bradycardia without hypotension which will continue to improve with time. Appreciate psychiatry evaluation in light of serious attempt at self-harm to determine. Ok for transfer from ICU. Portillo Carrasco MD [facility] Section of Pulmonary and Critical Care Medicine Pager: [phone] IS PATIENT CRITICALLY ILL? Is there a high potential of sudden, clinically significant, or life threatening deterioration? No Is there a need for direct personal assessment and management to treat/prevent multiple vital organfailure/deterioration? No If this patient is not critically ill, I certify the patient requires continued in-patient hospitalization for ongoing telemetry in light of toxic ingestion with bradycardia and psychiatry evaluationin setting of intentional self-harm PATIENT IS CRITICALLY ILL WITH THESE DIAGNOSES BEING MANAGED BY [facility] TEAM: * Magaly Rodgers, RT - 01/03/2024 5:09 PM EDT Current Settings: Room air Airway: 8.0 at 26 cm at the Teeth. Skin Integrity: WDL Ambu bag setup at HOB Breath Sounds: clear Secretions: small thick yellow/creamy Assessment / Events: Received patient on VCV 500ml (~7mlkg) x12bpm PEEP 5 30% not triggering vent Ve ~5.6 sating mid/high 90s EtCo2 low 40s ~0800 work restless/agitated transitioned to PSV 10/5 25% Later weaned PS to 5 Passed SBT SBT for ~30min on CPAP 0/+5 25% Start SBT End of SBT Initiated ~10am with RASS -3 RR 20 30 Vt 315 348 Ve 8 7.9 SpO2 94 97 EtCo2 44 44 HR 44 43 BP 95/59 101/68 Patient reports history of failed extubations d/t upper airway swelling. Team bedside with emergentequipment ready if needed. +cuff leak. Extubated to 2lpm NC ~1240, no stridor, good phonation, goodcough. Plan: Spo2 goal >92% Encourage deep breath and cough Ambulate/up to chair when able * Dutch Meier MD - 01/03/2024 7:36 AM EDT ICU Blue (#[id number]) Progress Note Patient info: Name: Akshat Serrano : 1980 PCP: Adwoa Nixon MD PCP phone number: [phone] Date of Admission: 01/03/2024 ( Hospital Day 0 days ) Attending:Apolinar Blanchard MD ID: Akshat Serrano is a 43 y.o. male w/ PMH of polysubstance use disorder (methadone), ADHD, MDD who presented to [facility] ED with acute toxic encephalopathy and bradycardia in setting of suspected alpha agonist intentional overdose, now transferred to [facility] intubated and sedated. F PMH Polysubstance use disorder: currently on methadone 76. Previously admitted to [facility] 2019 for toxic encephalopathy requiring intubation and associated pneumonia.(Prescribed valproate for agitation?) Attention deficit hyperactivity disorder- On guanfacine MDD 24 Hour Events/Subjective: Overnight: -- admitted overnight intubated and sedated This AM: -- HR 40-50s - prop @10 -- tox workup benign -- Utox with cocaine, methadone cannaboid and TCA -- attempting SBT and hopeful extubation this AM Vasoactive & Sedating Medications: Infusions: Continuous Infusions: fentaNYL Stopped (01/03/24 0215) propofoL 10 mcg/kg/min (01/03/24 0600) Ventilator Settings: Mode: Servo U Ventilator Mode: VC, SET RR: TV: PEEP: FiO2: VARIABLES Tidal Volume Set: 500 Set PEEP (cm H2O): 5 Set FiO2: 30 % PATIENT RR: PIP: Pplateau: SpO2: OUTPUT Resp: 12 Peak Inspiratory Pressure: 21 Plateau Pressure (cm H2O): 15 SpO2: 98 % ABG (Arterial Blood Gas) No results for input(s): PHART, VXW1MYN, PO2ART, ULS0EPQ, LACTATEVEN, FSI5UUK, PFRATIOART2 in the last 168 hours. VBG (Venous Blood Gas) No results for input(s): PHVEN, TLM3QKR, PO2VEN, DDM8JTC, LACTATEVEN in the last 168 hours. Mixed Venous Sat No results for input(s): A4HNZC2 in the last 168 hours. Objective: Vitals Last value Range last 24 hrs Temperature Temp: 36.2 ??C (97.2 ??F) Temp: [36 ??C (96.8 ??F)-36.3 ??C (97.3 ??F)] Heart Rate Heart Rate: (!) 41 Heart Rate: [35-41] Blood Pressure BP: 98/64 BP: (98-129)/(64-90) Art Line BP BP (Arterial Line): -- MAP (NBP): [75 mmHg-98 mmHg] Respiratory Rate Resp: 12 Resp: [11-17] SpO2 SpO2: 98 % SpO2: [98 %-100 %] Oxygen Delivery Oxygen Therapy O2 Device: Ventilator FiO2 (%): 30 % Intake/Output Summary (Last 24 hours) at 01/03/2024 0737 Last data filed at 01/03/2024 0600 Gross per 24 hour Intake 160 ml Output 525 ml Net -365 ml Patient Vitals for the past 168 hrs: Weight 01/03/24 0119 83.5 kg (184 lb 1.4 oz) Admit wt: 83.5 kg Physical Exam: Gen: in bed in NAD. RASS -1 HEENT: anicteric, EOMI intact, CV: RRR, no murmurs/rubs/gallops Resp: CTAB, no crackles/wheezes/ronchi, normal work of breathing Abd: normal bowel sounds, soft, non-tender to palpation, no rebound or guarding Ext: 2+ distal pulses, no pedal edema Neuro: no focal deficits noted, CN II-XII grossly intact, moves all extremities spontaneously Psych: cooperative. Skin: no rashes, lesions, or ulcerations noted Lines/Drains/Airways Lines: PIV 01/03/24 0100 18 gauge basilic vein (medial side of arm), right (Active) Indication/Daily Review of Necessity fluid therapy intermittent;medication therapy intermittent 01/03/24 0120 Site Preparation/Maintenance dressing: dry and intact 01/03/24599 Securement catheter stabilization device, secured with 01/03/24119 Patency/Maintenance flushed without difficulty;blood return, able to obtain;alcohol impregnated capapplied 01/03/24119 Phlebitis 0-->no symptoms 01/03/24599 Infiltration 0-->no symptoms 01/03/24599 Site Signs/Symptoms no redness;no swelling;no warmth;no pain;no palpable cord;no streak formation;no drainage 01/03/24119 PIV 01/03/2499 20 gauge metacarpal vein (top of hand), left (Active) Indication/Daily Review of Necessity fluid therapy intermittent;medication therapy intermittent 01/03/24119 Site Preparation/Maintenance dressing: dry and intact 01/03/24599 Securement catheter stabilization device, secured with 01/03/24119 Patency/Maintenance flushed without difficulty;blood return, unable to obtain;alcohol impregnated cap applied 01/03/24119 Phlebitis 0-->no symptoms 01/03/24599 Infiltration 0-->no symptoms 01/03/24599 Site Signs/Symptoms no redness;no swelling;no warmth;no pain;no palpable cord;no streak formation;no drainage 01/03/24119 PIV 01/03/2499 20 gauge median cubital vein (antecubital fossa), left (Active) Indication/Daily Review of Necessity fluid therapy intermittent;medication therapy intermittent 01/03/24119 Site Preparation/Maintenance dressing: dry and intact 01/03/24599 Securement catheter stabilization device, secured with 01/03/24119 Patency/Maintenance flushed without difficulty;blood return, able to obtain;alcohol impregnated capapplied 01/03/24119 Phlebitis 0-->no symptoms 01/03/24599 Infiltration 0-->no symptoms 01/03/24599 Site Signs/Symptoms no redness;no swelling;no warmth;no pain;no palpable cord;no streak formation;no drainage 01/03/24119 Labs: Recent Labs 01/03/24129 WBC 8.8 HGB 12.2* HCT 35.7* PLATELET 158 MCV 83.0 Recent Labs 01/03/24129 NA 142 CL 104 CO2 27 K 3.9 MAGNESIUM 1.08* PHOS 2.9 CALCIUM 8.9 BUN 18 CREATININE 0.90 LFTs Recent Labs 01/03/24 0130 PROT 6.0* ALBUMIN 3.8 AST 27 ALT 22 ALKPHOS 64 BILITOT 0.9 Coags No results for input(s): INR, PT, PTT, FIBRINOGEN, DDIMER in the last 168 hours. Invalid input(s): THROMBIN TIME Cardiac Enzymes No results for input(s): CK, TROPONINT, PROBNP in the last 168 hours. Endocrine Recent Labs 01/03/24 0130 TSH 0.67 No results for input(s): POCGLU in the last 168 hours. Heme No results for input(s): LDH, HAPTOGLOBIN, URICACID in the last 168 hours. ABG (Arterial Blood Gas) No results for input(s): PHART, QMD4XQR, PO2ART, YHX8EMG, LACTATEVEN, AYF8DMY, PFRATIOART2 in the last 168 hours. VBG (Venous Blood Gas) No results for input(s): PHVEN, CVD9UUB, PO2VEN, UDD5WDR, LACTATEVEN in the last 168 hours. Mixed Venous Sat No results for input(s): N6LSCI8 in the last 168 hours. Microbiology: Microbiology Results (Last 30 days) No results found for the last 720 hours. Imaging: Results for orders placed or performed during the hospital encounter of 01/03/24 XR Abdomen 1 view (Generic) (Exam End: 01/03/2024 3:29 AM) Result Value WORKSTATION ID [id number] Impression Satisfactorily positioned orogastric tube. Thank you for letting us participate in the care of this patient. If you are a health care provider and have any questions regarding this report, please contact the number below. For patients who have questions please contact the health wound care rn that requested your imaging first. Chest One View (Exam End: 01/03/2024 3:29 AM) Result Value WORKSTATION ID [id number] Impression Satisfactorily positioned endotracheal tube. Thank you for letting us participate in the care of this patient. If you are a health care provider and have any questions regarding this report, please contact the number below. For patients who have questions please contact the health wound care rn that requested your imaging first. Medications Scheduled Meds: enoxaparin 40 mg Subcutaneous Nightly acetaminophen 975 mg Oral Q8H MARIBELL Or acetaminophen 1,000 mg Oral Q8H MARIBELL Or acetaminophen 650 mg Rectal Q8H MARIBELL fentaNYL 50 mcg Intravenous Once And shift total and Settings verification 1 each Intravenous 2 Times Daily - Shift Total thiamine 500 mg Intravenous Daily lactated Ringers 1,000 mL IV bolus Intravenous Once Continuous Infusions: fentaNYL Stopped (01/03/24 0215) propofoL 10 mcg/kg/min (01/03/24 0600) PRN Meds:.fentaNYL AND fentaNYL AND fentaNYL AND shift total and Settings verification AND Assess, propofoL AND propofoL, atropine Assessment & Plan: Akshat Serrano is a 43 y.o. male w/ PMH of polysubstance use disorder (methadone), ADHD, MDD who presented to [facility] ED with acute toxic encephalopathy and bradycardia in setting of suspected alpha agonist overdose trasferred to MICU intubated and sedated. Patient successfully extubated, satting well on room air and mentation improving. Patient confirmedthis was an intentional overdose upon awakening. Not much conversation afterwards. Psych was consulted and stopped by for evaluation, but could not obtain a satisfactory eval due to grogginess with sedation. Rec 1:1 sitter, involuntary hold, and re-evaluation on 01/03. Bradycardia has been stable and slowly improving will CTM and administer atropine if acutely drops below 40s, currently asymptomatic. 01/02: successfully extubated, seen by psych, will see again tomorrow as groggy after extubation, 1:1sitter, involuntary hold if wanting to leave Neuro: #Acute toxic encephalopathy (improving) - Avoid alpha agonists (precedex, clonidine, tizanidine) - Previously on valproate level negative - Utox above w/ fentanyl TCAs + #Polysubstance use disorder - home methadone 76mg once confirmed by methadone clinic in [facility] #Alcohol use disorder - thiamine 500mg X3 days Cardiovascular #Sinus bradycardia Stable pressures with rates in 40-50s - Contingency plan for Atropine push and dopamine infusion if hypotensive with worsening bradycardia. Pulmonary #PATY Renal/Fluid/Electrolytes #PATY Gastrointestinal/Metabolic/Nutrition #Nutrition - passed bedside swallow eval, regular diet Psychiatry #MDD #Intentional polysubstance overdose - Psychiatry consult - 1:1 sitter, cannot leave AMA - potential transfer to psych pending eval #ADHD - hold home alpha agonist ICU Checklist Sedation/Analgesia: N/A Glycemic control: Hyperoxia: titrate to lowest possible support to target SpO2 88% Diet/ Nutrition: NPO diet (Give Meds) DVT Prophylaxis: LMWH GI Prophylaxis: famotidine Code Status: Attempt Cardiopulmonary Resuscitation - Inpatient Dispo: Pending clinical course Dutch Meier MD Internal Medicine, PGY-1 Blue Team #[id number] 01/03/24 7:37 AM Associated attestation - Portillo Carrasco MD - 01/03/2024 11:47 PM EDT I have seen the patient and reviewed the details of the history, physical exam, and data with Dr. Meier. See my separate note for details. Portillo Carrasco MD [facility] Staff Physician, Pulmonary and Critical Care Medicine * Portillo Carrasco MD - 01/03/2024 6:50 AM EDT MICU STAFF PROGRESS NOTE SECTION OF PULMONARY & CRITICAL CARE MEDICINE Date of Service: 01/03/2024 Patient seen and examined, and data reviewed, on critical care rounds. Brief Clinical Summary: 43-year-old with history of polysubstance use disorder on MMT and depression transferred from [facility] ED with acute toxic encephalopathy and bradycardia in the setting of suspected intentional alpha agonist overdose with intubation for airway protection. Found at home by amanda lethargic and reporting that he had taken a bunch of pills wanting to . In the emergency department he was found to have guanfacine, gabapentin, and hydroxyzine in his pockets. He was noted to be lethargic with slurred speech and had myoclonic jerking. Also noted to be bradycardic to the 30s without hypotension. CThead negative for acute pathology. No response to naloxone. He received 50 g of activated charcoal.On arrival to [facility] he was bradycardic, normotensive, intubated and sedated. This AM HR remains 40s, normotensive without vasoactive support. Afebrile. Later in morning, very awake. On SBT. Significant Events Last 24 Hours/Interval History: As above Active Problems and Important Diagnoses: Intubation for airway protection Encephalopathy - toxid/metabolic Suicide attempt Polysubstance intentional overdose including alpha antagonist, gabapentin Bradycardia Major depression Current Medications: Scheduled Meds: enoxaparin 40 mg Subcutaneous Nightly acetaminophen 975 mg Oral Q8H MARIBELL Or acetaminophen 1,000 mg Oral Q8H MARIBELL Or acetaminophen 650 mg Rectal Q8H MARIBELL fentaNYL 50 mcg Intravenous Once And shift total and Settings verification 1 each Intravenous 2 Times Daily - Shift Total thiamine 500 mg Intravenous Daily lactated Ringers 1,000 mL IV bolus Intravenous Once Continuous Infusions: fentaNYL Stopped (01/03/24 0215) propofoL 10 mcg/kg/min (01/03/24 0600) PRN Meds: fentaNYL AND fentaNYL AND fentaNYL AND shift total and Settings verification AND Assess, propofoL AND propofoL, atropine Objective: Last value Range last 24 hrs Temperature Temp: 36.2 ??C (97.2 ??F) Temp: [36 ??C (96.8 ??F)-36.3 ??C (97.3 ??F)] Heart Rate Heart Rate: (!) 41 Heart Rate: [35-41] Blood Pressure BP: 98/64 BP: (98-129)/(64-90) Respiratory Rate Resp: 12 Resp: [11-17] SpO2 SpO2: 98 % SpO2: [98 %-100 %] Admit Weight 83.5 kg 24-hr fluid balance: UOP 425 since arrival Drips: Propofol 10 Current Ventilator settings: ACC 12/500/30/5 RR 12, PIP 209, VE 5.6 Physical Exam General: NAD HEENT: ETT in place, no thrush, no scleral icterus, no conjunctival pallor Cardiovascular: Regular bradycardia, normal S1 and S2, no murmurs or extra heart warm Respiratory: No increased work of breathing, good air movement throughout, no wheezes or crackles Abdomen: Soft, non-tender, non-distended Extremities: No lower extremity edema Skin: Warm, no rashes Neurologic: Symmetric gaze, no facial asymmetry, following commands in all extremities Pertinent Labs: WBC 8.8 Hgb 12 PLT 158 Na 142 K 3.9 HCO3 27 AG 11 BUN 18 Cr 0.9 Glucose 123 LFTs WNL TSH 0.67 Dig neg [place] neg Valproic neg Utox +cocaine, methadone, cannabinoids, fentanyl, TCA Micro None New Diagnostics/Imaging: CXR / ETT 3 cm above jv, enteral tube below diaphragm, clear lung [place], no effusions, no focal airspace disease XR Abd 01/02 - no radio-opaque material seen Assessment & Plan: 43M intubated for airway protection in setting of intentional polysubstance overdose with resultingencephalopathy and bradycardia without hypotension. Suspect this is due to alpha-agonist, possibly concurrent gabapentin. Absent hypotension/shock making BB or CCB ingestion very unlikely. At this time, toxidrome is improving, he is awake, and requires minimal ventilatory support. We will complete SBT and expect extubation soon. Will need psychiatry evaluation and 1:1 sitter in light of our understanding that ingestion was intended for self-harm. Portillo Carrasco MD [facility] Section of Pulmonary and Critical Care Medicine Pager: [phone] IS PATIENT CRITICALLY ILL? Is there a high potential of sudden, clinically significant, or life threatening deterioration? Yes Is there a need for direct personal assessment and management to treat/prevent multiple vital organfailure/deterioration? Yes If this patient is not critically ill, I certify the patient requires continued in-patient hospitalization for [] PATIENT IS CRITICALLY ILL WITH THESE DIAGNOSES BEING MANAGED BY [facility] TEAM: Intubation for airway protection Intentional polysubstance ingestion with intent for self-harm Bradycardia Toxic/metabolic encephalopathy I personally performed 45 minutes of aggregate critical care time exclusive of procedures and teaching. This includes time spent during direct patient evaluation and reassessment, interpreting diagnostic tests, directing life and/or organ supporting interventions and documentation on the unit. * Antolin Nicholas, [facility] - 01/03/2024 2:45 AM EDT 43 yo M w/ PMHx of ADHD, MDD, methadone dependence transferred from outside hospital for acute neuromuscular respiratory failure due to guanfacine/gabapentin/hydroxyzine intentional OD/suicide attempt. U tox also notable for cocaine/THC/TCAs. Lithiium/valproate levels (-). AMV Protocol: Yes SBT Protocol: Yes SBT: Fail: Pts respiratory drive is minimal, RR<8 VE <4L Vent Settings: Ventilator Mode: VC Tidal Volume Set: 500 Resp Rate Set: 12 PEEP Set: 5 FiO2: 30 % Ventilator Measurements: Resp: 12 Vt Exhaled: 463 PIP: 23 MAP: 7.8 Plateau Press: 15 Ve: 5.5 PEEP: 5 cmH20 SpO2: 99 % EtCO2: Airway: 8.0 @ 26 cm at the Teeth. Skin Integrity: WDL Per discharging hospital 01/01 pts ETT was 4.5cm>jv Breath Sounds: NOÉ present Secretions: minimal Assessment / Events / Plan of the Day: Pt received from outside hospital intubated an on MV. The ptwas placed on transfer settings of 14 x 500 +5 peep and 50% weaning fio2 as able. VBG demonstrated mild alkalosis and rate was titrated. Pt measured and liberation to 8ml/kg resulted in coughing and higher pips so pt remains on 7ml/kg. Pt is sedated and does not appear to be in distress. Pt was tried on PSV for brief period still weak resp effort though RN reports pt is following commands for movement of extremities. Antolin Nicholas RCP * Dennis Torres MD - 01/03/2024 2:39 AM EDT [facility] TeleICU Initial Assessment Note I established audio/visual communication with the patient's room, reviewed the eDH. History and Assessment: 43 yo M w/ PMHx of ADHD, MDD, methadone dependence transferred from outside hospital for acute neuromuscular respiratory failure due to guanfacine/gabapentin/hydroxyzine intentional OD/suicide attempt. U tox also notable for cocaine/THC/TCAs. Lithiium/valproate levels (-). CAMERA: Intubated, sedated VENT: 30% PEEP 5 RR 12 TV 500 mL DRIPS: Propofol 10 mcg/kg/min Patient Vitals for the past 8 hrs: BP Temp Temp src Pulse Resp SpO2 Height Weight 01/03/24 0200 -- -- Bladder -- -- -- -- -- 01/03/24137 -- -- -- -- 12 99 % -- -- 01/03/24129 129/80 36.2 ??C (97.2 ??F) -- (!) 39 11 98 % -- -- 01/03/24 0125 -- 36.3 ??C (97.3 ??F) Bladder (!) 35 15 100 % -- -- 01/03/24 0119 117/90 -- -- (!) 36 17 100 % 174 cm (5' 8.5) 83.5 kg (184 lb 1.4 oz) Intake/Output Summary (Last 24 hours) at 01/03/2024 0239 Last data filed at 01/03/2024 0200 Gross per 24 hour Intake 33 ml Output 400 ml Net -367 ml Recent Results (from the past 12 hour(s)) TSH Result Value TSH 0.67 Magnesium Result Value Magnesium 1.08 (H) Phosphorus Result Value Phosphorus 2.9 CMP w/fasting Glucose Result Value Glucose Fasting 123 (H) BUN 18 Creatinine 0.90 Sodium 142 Potassium 3.9 Chloride 104 CO2 27 Anion Gap 11 Calcium 8.9 Total Protein 6.0 (L) Albumin 3.8 AST 27 ALT 22 Alk Phos 64 Total Bilirubin 0.9 Estimated GFR 108 Hemogram Result Value WBC 8.8 RBC 4.30 (L) Hemoglobin 12.2 (L) Hematocrit 35.7 (L) MCV 83.0 MCH 28.4 MCHC 34.2 Platelets 158 RDWSD 38.9 RDWCV 12.8 MPV 10.1 nRBC % Auto 0.0 nRBC Abs Auto 0.000 Differential, Automated Result Value Neutrophils % 70.0 Neutr Abs (ANC) 6.13 (H) Lymphocytes % 21.0 Lymphocytes Abs 1.8 Monocytes % 7.2 Monocyte Abs 0.6 Eosinophils % 1.1 Eosinophils Abs 0.1 Basophils % 0.5 Basophils Abs 0.0 Immature Gran % 0.20 Claudette Gran Abs 0.02 [place] level Result Value [place] Lvl <0.05 (L) Valproic Acid Level, Total Result Value Valproic Lvl <3 Rapid Drug Screen, Urine (DANA Request) Result Value DANA Conf Requested Yes DANA Requested See Comment Rapid Drug Screen w/ Confirmation, Urine Result Value U Barbiturates Screen None Detected U Benzodiazepines Screen None Detected U Cocaine Screen Presumptive Pos (A) U Methadone Metabolites Screen Presumptive Pos (A) U Opiate Screen None Detected U Cannabinoid Screen Presumptive Pos (A) U Oxycodone Screen None Detected U Buprenorphine Screen None Detected U Fentanyl Screen Presumptive Pos (A) U Tricyclics Screen Presumptive Pos (A) U Ethanol Screen None Detected U Amphetamines Screen None Detected U Creat DANA 44 U Chromate DANA <2.0 U Nitrite DANA <50 U Oxidant DANA 363 (H) U pH DANA 7.4 U Adulterants Screen Suspected (A) Urinalysis with reflex Culture Specimen: Indwelling Catheter Urine Result Value Glucose UA Negative Protein UA Negative Bilirubin UA Negative Urobilinogen UA Normal pH UA 8.0 Blood UA Negative Ketones UA 15 (A) Nitrite UA Negative Leukocytes UA Negative Appearance UA Clear Spec [place] UA 1.011 Color UA Yellow Culture Reflexed No ABG (Arterial Blood Gas) No results found for: PHART, PO2ART, TQF4DFB A/P: #Acute neuromuscular respiratory failure/bradycardia due to alpha-2a agonist toxicity -Hemodynamic monitoring, AMV protocol as per MICU team -Follow up digoxin level This is a non-billable note. documented in this encounter H&P Notes * Johny Renee MD - 01/04/2024 11:42 AM EDT [facility] MEDICINE ADMISION H&P Patient Name: Akshat Serrano Responsible Attending: Damien Gonzalez MD PCP: Adwoa Nixon MD ID/Chief Complaint: Akshat Serrano is a 43 y.o. male with hx of polysubstance use disorder (on methadone at [facility]), ADHD, MDD who presented to [facility] with acute toxic encephalopathy and bradycardia in setting of suspected alpha agonist intentional overdose who was initially admitted to ICU due to intubated for airway protection now being transferred to Hospital Medicine for ongoing medical management while pending IEA admission once medically ready. History of Present Illness: Initial ICU H&P (01/03/24, Dr. Benitez): HPI: Per outside records, Akshat was found at home by amanda hdez reporting that he had taken abunch of pills wanting to . He was taken by EMS to [facility] emergency department found to have guanfacine, gabapentin and hydroxyzine in his pockets. During his ED evaluation he was lethargic with slurred speech and reported myoclonic jerks. He was found to be bradycardia to the 30s and worsening somnolence. Due to airway concerns he was intubated in the emergency department and [facility] was called for ICU transfer. ED course Vitals: HR 30's, BP stable without pressors Labs: cbc/bmp WNL, Vbg 7.4/54/34 Imaging: CT head without acute process Interventions: Narcan (no change), 2 L IV fluid, 50g activated charcoal, endotracheal intubation. Upon arrival to [address], normotensive, sedated and intubated. ICU clinical course (01/03/24-01/04/24): Patient admitted to ICU intubated and sedated. Bradycardia with stable vitals, did not need atropine or transcutaneous pacing. Patient passed SAT/SBT on day of admission and was extubated on the sameday of 01/03/24. Psychiatry was consulted given suicide attempt with intentional overdose, patient declined voluntary admission therefore meeting IEA (involuntary emergent admission) criteria, need 1:1sitter, cannot leave AMA. ICU course also include intermittent hypotension for which patient received intermittent 500cc-1L fluid boluses. Today: Patient interviewed in the ICU, sitter at bedside. Patient states he does not recall seeing psychiatrist this admission (despite documented visits today and yesterday). He has had some intermittent cough since extubation, but denies chest pain or shortness of breath. Otherwise denies nausea/vomiting/diarrhea, or urinary symptoms. He denies SI/HI/AH/VH at this moment. ROS (positive if bold): General: fevers, chills, fatigue Cardiac: chest pain, HUMPHREY, leg swelling, orthopnea Pulm: SOB, cough, wheezing GI: nausea, vomiting, abd pain, diarrhea : dysuria, hematuria MSK: joint pain Neuro: weakness, numbness Skin: easy bruising, skin rashes Past Medical History: Patient Active Problem List Diagnosis Toxic encephalopathy DIFFICULT AIRWAY Narrowing of airway At risk for danger to others Agitation requiring sedation protocol Pneumonia due to Streptococcus pneumoniae Hypernatremia Respiratory failure with hypoxia Hyperactive behavior AMS (altered mental status) Depression ADHD (attention deficit hyperactivity disorder) Active smoker Herpes Home Meds: No current facility-administered medications on file prior to encounter. Current Outpatient Medications on File Prior to Encounter Medication Sig Dispense Refill thiamine (THIAMINE) Take 1 tablet by mouth daily. 30 tablet 0 divalproex (DEPAKOTE) 250 mg Tablet, Delayed Release (E.C.) Take 1 tablet by mouth 2 times daily. 60 tablet 0 gabapentin (NEURONTIN) 300 mg Capsule Take 1 capsule by mouth 3 times daily. 90 capsule 0 Allergies: No Known Allergies Family History: No family history on file. Social History: Social History Tobacco Use Smoking status: Every Day Packs/day: 1.00 Years: 16.00 Additional pack years: 0.00 Total pack years: 16.00 Types: Cigarettes Tobacco comments: pt given smoking cessation packet Substance Use Topics Alcohol use: No Drug use: Yes Types: Marijuana Vitals: Last value Range last 24 hrs Temperature Temp: 37.3 ??C (99.1 ??F) Temp: [37.1 ??C (98.8 ??F)-38.1 ??C (100.6 ??F)] Heart Rate Heart Rate: (!) 39 Heart Rate: [34-61] Blood Pressure BP: 106/67 BP: (75-110)/(39-67) Respiratory Rate Resp: 20 Resp: [12-34] SpO2 SpO2: 98 % SpO2: [90 %-98 %] I/O last 3 completed shifts: In: 2773 [P.O.:1210; I.V.:1503] Out: 1825 [Urine:1225; Other:600] Examination: General: AAOx3. Lethargic. HEENT: MMM. Cardiac: Bradycardic, regular rhythm. No murmurs. Pulm: Nonlabored. No wheezes, rhonchi, rales. Abd: +BS; soft, non-tender, non-distended, no obvious masses. Ext: No peripheral edema. Peripheral pulses 2+ Neuro: II-XII grossly intact.No focal deficits, sensation intact to crude touch Skin: No obvious rashs, lesions or petechiae Laboratory: CBC: Recent Labs 01/04/24 0217 01/03/24 0130 WBC 7.5 8.8 HGB 11.4* 12.2* HCT 34.9* 35.7* PLATELET 133* 158 NEUTROABS 5.33 6.13* Chemistry: Recent Labs 01/04/24 0219 01/03/24 0130 NA 140 142 K 3.4* 3.9 CL 104 104 CO2 27 27 BUN 18 18 CREATININE 0.90 0.90 GLUCOSE 118 -- ANIONGAP 9 11 Recent Labs 01/04/24 0219 01/03/24 0845 01/03/24 0130 CALCIUM 8.4* -- 8.9 MAGNESIUM 0.83 -- 1.08* PHOS 3.7 3.6 2.9 LFT's: Recent Labs 01/03/24 0130 BILITOT 0.9 ALBUMIN 3.8 ALKPHOS 64 ALT 22 AST 27 Coags: No results for input(s): PT, INR, PTT, FIBRINOGEN, DDIMER in the last 168 hours. Invalid input(s): THROMBIN TIME No results for input(s): INR in the last 168 hours. Endocrine: Recent Labs 01/03/24 0130 TSH 0.67 No results for input(s): HA1C in the last 7068 hours. Lipids: Lab Results Component Value Date TRIG 133 07/07/2019 Heme: No results for input(s): LDH, HAPTOGLOBIN, URICACID in the last 168 hours. VBG (Venous Blood Gas): No results for input(s): PHVEN, UAL9GTD, PO2VEN, SOX5MSD, BEVEN, TIK0RID in the last 72hours. Microbiology: Microbiology Results (Last 30 days) No results found for the last 720 hours. No results found for: URINECULTURE No results found for: GRAMSTAIN, BFCX, LOWERRESPCX, TISSUECX No results found for: BLOODCX Studies: Digoxin Lvl < 0.3 [place] Lvl < 0.05 Valproic Lvl < 3 UTOx: +cocaine, methadone, cannabinoid, fentanyl, tricyclics, oxidant, adulterants ASSESSMENT/PLAN: Akshat Serrano is a 43 y.o. male with hx of polysubstance use disorder (on methadone at [facility]), ADHD, MDD who presented to [facility] with acute toxic encephalopathy and bradycardia in setting of suspected alpha agonist intentional overdose who was initially admitted to ICU due to intubated for airway protection now being transferred to Hospital Medicine for ongoing medical management while pending IEA admission. Patient bradycardia has been thought to be secondary to alpha agonist ingestion. Bradycardia has not needed interventions such as atropine or transcutaneous pacing. Patient denies any symptoms associated with bradycardia such as headache, chest pain, dyspnea. Will continue to monitor. Intermittent h ypotension was felt to be secondary to low PO intake/hypovolemia rather than from bradycardia. Will repeat EKG for QTC today. Hold all home psychiatric medications. Patient cannot leave AMA. Continue to follow other Psychiatry recommendations. Repeat CXR given persistent cough s/p extubation, rule out aspiration pneumonitis/pneumonia. #Bradycardia 2/2 alpha agonist intentional ingestion - Continued telemetry monitoring - K>4, Mg>1 - Atropine IV and TCP if bradycardia associated with hemodynamic instability #Intermittent hypotension - Suspect secondary to hypovolemia rather than bradycardia given patient asymptomatic - Fluid boluses 500cc PRN #Cough s/p extubation - Suspect secondary to upper airway irritation 2/2 intubation vs aspiration pneumonitis/pneumonia - Repeat CXR #Alcohol use disorder - Finish empiric thiamine 500mg x 3 days #Suicide attempt by overdose (suspect guanfacine, gabapentin, hydroxyzine) #Acute toxic encephalopathy - improving #Hx of MDD #Hx of ADHD #Hx of polysubstance use disorder (OUD on methadone) - Psychiatry consulted and following - Patient requires 1:1 sitter - Patient cannot leave AMA; on IEA - Repeat EKG to check QTC - HOLD all home psychiatric medications, including methadone - Contact methadone clinic ([facility]) on Friday to confirm dosing. Discuss with Psychiatry before restarting while inpatient. Indication for restarting would be if patient symptoms concerning for opioid withdrawal. - Notify Psychiatry when medically ready - Agitation management from Psych recs: Attempt verbal de-escalation first 1st line: Quetiapine 25mg TID PRN (ordered) 2nd line: Haldol 5mg, Ativan 2mg PO or IV/IM if unable to take PO This patient's care was staffed with Attending Dr. Mukherjee. #Routine: DVT PPx: Enoxaparin GI PPx: N/A Lines/Drains: PIV Consults: Psych Code Status: Full Johny Renee MD Internal Medicine, PGY-3 [facility] Medicine #[id number] Associated attestation - Damien Mukherjee MD - 01/04/2024 8:30 PM EDT Attending Attestation and Certification Please see Johny Renee MD's note for details of the patient history of presentation and data. I have discussed, reviewed and agree with the documented History, Physical findings, Assessment and Plan of care. * Catarino Benitez MD - 01/03/2024 1:18 AM EDT Images from the original note were not included. ICU Blue H&P Patient info: Name: Akshat Serrano : 1980 PCP: Adwoa Nixon MD PCP phone number: [phone] Date of Admission: 01/03/2024 ( Hospital Day 0 days ) Attending:Apolinar Blanchard MD ID: Akshat Serrano is a 43 y.o. male w/ PMH of polysubstance use disorder (methadone), ADHD, MDD who presented to [facility] ED with acute toxic encephalopathy and bradycardia in setting of suspected alpha agonist intentional overdose, now transferred to [facility] MICU intubated. HPI: Per outside records, Akshat was found at home by landlord lethargic reporting that he had taken abunch of pills wanting to . He was taken by EMS to [facility] emergency department found to have guanfacine, gabapentin and hydroxyzine in his pockets. During his ED evaluation he was lethargic with slurred speech and reported myoclonic jerks. He was found to be bradycardia to the 30s and worsening somnolence. Due to airway concerns he was intubated in the emergency department and [facility] was called for ICU transfer. ED course Vitals: HR 30's, BP stable without pressors Labs: cbc/bmp WNL, Vbg 7.4/54/34 Imaging: CT head without acute process Interventions: Narcan (no change), 2 L IV fluid, 50g activated charcoal, endotracheal intubation. Upon arrival to [address], normotensive, sedated and intubated. PMH Polysubstance use disorder: currently on methadone 75. Previously admitted to [facility] 2019 for toxic encephalopathy requiring intubation and associated pneumonia.(Prescribed valproate for agitation?) Attention deficit hyperactivity disorder- On guanfacine MDD PSH Past Surgical History: Procedure Laterality Date HERNIA REPAIR IMPLANT MESH HERNIA REPAIR/DEBRIDEMENT CLOSURE 12/05/2011 IMPLANT MESH FOR INCISIONAL OR VENTRAL HERNIA REPAIR performed by CARLOS ENRIQUE BECK III at [facility] MA[facility] OR REPAIR INCISIONAL HERNIA, REDUCIBLE 12/05/2011 REPAIR INITIAL INCISIONAL OR VENTRAL HERNIA REDUCIBLE performed by CARLOS ENRIQUE BECK III at [facility] OR Allergies: No Known Allergies Family History No family history on file. Social History Reported daily smoker, frequent alcohol use. Hx of opioid and cocaine use disorder. On methadone. Follows with [facility]. Party Demonstrator Amanda Campo is patient's listed contact (notified of admission). Possible aunt in [place] only known family Objective: Vitals Last value Range last 24 hrs Temperature Temp: 36.2 ??C (97.2 ??F) Temp: [36.2 ??C (97.2 ??F)-36.3 ??C (97.3 ??F)] Heart Rate Heart Rate: (!) 39 Heart Rate: [35-39] Blood Pressure BP: 129/80 BP: (117-129)/(80-90) Art Line BP BP (Arterial Line): -- MAP (NBP): [94 mmHg-98 mmHg] Respiratory Rate Resp: 12 Resp: [11-17] SpO2 SpO2: 99 % SpO2: [98 %-100 %] Oxygen Delivery Oxygen Therapy O2 Device: Ventilator FiO2 (%): 30 % Intake/Output Summary (Last 24 hours) at 01/03/2024 0202 Last data filed at 01/03/2024 0130 Gross per 24 hour Intake 0 ml Output 320 ml Net -320 ml Patient Vitals for the past 168 hrs: Weight 01/03/24 0119 83.5 kg (184 lb 1.4 oz) Admit wt: 83.5 kg Physical Exam: Gen: in bed intubated and sedated. RASS -3 CV: RRR, no murmurs/rubs/gallops Resp: CTAB, no crackles/wheezes/ronchi Abd: normal bowel sounds, soft Ext: 2+ distal pulses, no pedal edema Skin: no rashes, lesions, or ulcerations noted Lines/Drains/Airways Lines: Basilio Labs: HGB 13 WBC 10 Na 141 K 4.3 Cl 103 Co2 34 Anion Gap 4 Bun 24 Creat 1.2 Mag 2.6 (mg/dl) T bili 1.4 AST 31 ALT 35 Alkp Phos 73 Alb 4.1 Tylenol & ethanol level negative VBG on admission to MICU: 7.45/41/52/28 on 0.5 Fio2 Imaging: CXR ED:- no consolidation/effusion. ET tube in place EKG : Sinus earnest 36bpm with anteroseptal Biphasic T waves Assessment & Plan: Akshat Serrano is a 43 y.o. male w/ PMH of polysubstance use disorder (methadone), ADHD, MDD who presented to [facility] ED with acute toxic encephalopathy and bradycardia in setting of suspected alpha agonist overdose, now transferred to [facility] MICU intubated. His presentation of bradycardia with associated encephalopathy following self- reported medication overdose is most likely related primarily to alpha 2 agonism through guanfacine. His heart rates although low, were not associated with hypotension and remained at least in the 30s by all reports. Withthis in mind, I feel that his encephalopathy was not due to hypoperfusion in the setting of symptomatic bradycardia but rather acute toxic encephalopathy from central alpha activity as well as other possible contributors such as gabapentin and anticholinergic activity of hydroxyzine . He has already received activated charcoal and anticipate as this continues to get metabolized he will be ready fo r extubation tomorrow morning. He is stable with minimal ventilatory support required. He was intubated strictly for airway protection due to his encephalopathy without any active pulmonary issues. Will plan for extubation this morning assuming he passes SAT and SBT. Per reports this was likely an intentional overdose in the setting of known MDD. As such will plan for psychiatry consult when he awakens. In addition to his bradycardia is EKG is notable for biphasic T waves in V2-4. These do resemble type A Wellen's however these are likely secondary to his acute intoxication, no other signs of coronary ischemia at this time (no reported chest pain in ED). Will check digoxin level as this may cause similar T wave changes. Neuro #Sedation - Continue with propofol and fentanyl for goal RASS 0 overnight - wean for SAT and Extubation in AM. #Acute toxic encephalopathy - Avoid alpha agonists (precedex, clonidine, tizanidine) - Previously on valproate, check serum level #Polysubstance use disorder - home methadone 76mg when extubated #Alcohol use disorder - thiamine 500mg X3 days Cardiovascular #Sinus bradycardia Stable pressures with rates in 40's - Contingency plan for Atropine push and dopamine infusion if hypotensive with worsening bradycardia. - Zoll at bedside for transcutaneous pacing as bridge to transvenous wire if refractory to chromotrope support - [place] level #Biphasic T waves In setting of acute intoxication, no evidence of ischemia - Digoxin level Pulmonary #Mechanical Ventilation - SAT/SBT, plan to extubate in AM Renal/Fluid/Electrolytes #Goal even #hx of refeeding syndrome - TID phos/mag Gastrointestinal/Metabolic/Nutrition #Nutrition - NPO pending extubation - BM Regimen: Miralax, Bisacodyl 10mg Supp Psychiatry #MDD #Intentional polysubstance overdose - Psychiatry consult when extubated #ADHD - hold home alpha agonist ICU Checklist Sedation/Analgesia: Propofol -> SAT and extubate Glycemic control: Hyperoxia: titrate to lowest possible support to target SpO2 88% Diet/ Nutrition: NPO diet (Give Meds) DVT Prophylaxis: LMWH GI Prophylaxis: famotidine Code Status: Attempt Cardiopulmonary Resuscitation - Inpatient Catarino Benitez MD Internal Medicine, PGY-3 Blue Team 01/03/24 2:02 AM Associated attestation - Portillo Carrasco MD - 01/03/2024 4:37 PM EDT I reviewed the note by Dr. Benitez. See my separate note for details. Portillo Carrasco MD [facility] Staff Physician, Pulmonary and Critical Care Medicine documented in this encounter Miscellaneous Notes * Plan of Care - Tito Reed RN - 01/09/2024 5:49 AM EDT OUTCOME EVALUATION NOTE: OUTCOME SUMMARY: Patient is alert and oriented x4. AVSS on RA, afebrile. Patient is on telemetry, NSR. Patient denies any suicidal thoughts. Ambulated with sitter around the unit. Patient ambulates to bathroom. No major issues overnight. PLAN MOVING FORWARD: VS Q4 Monitor for Opioid withdrawal 1:1 sitter Maintain Safety INDIVIDUALIZED FALL PREVENTION INTERVENTIONS: Patient-specific fall risk factors per assessment: Generalized weakness Assistance: SBA Supervision:1:1 Sitter Surveillance: Bed locked in low position, call [place] within reach, purposeful hourly rounding, clutter free environment, bed/chair alarm on Patient-specific fall prevention interventions for sensory deficits provided: N/A CPG GOAL OUTCOME EVALUATION: Continue care plan as documented. Problem: Adult Inpatient Plan of Care Goal: Plan of Care Review Outcome: Ongoing (Interventions Implemented as Appropriate) Goal: Patient-Specific Goal (Individualized) Outcome: Ongoing (Interventions Implemented as Appropriate) Goal: Absence of Hospital-Acquired Illness or Injury Outcome: Ongoing (Interventions Implemented as Appropriate) Goal: Optimal Comfort and Wellbeing Outcome: Ongoing (Interventions Implemented as Appropriate) Goal: Readiness for Transition of Care Outcome: Ongoing (Interventions Implemented as Appropriate) Problem: Fall Injury Risk Goal: Absence of Fall and Fall-Related Injury Outcome: Ongoing (Interventions Implemented as Appropriate) Problem: Adjustment to Illness (Overdose) Goal: Optimal Coping Outcome: Ongoing (Interventions Implemented as Appropriate) Problem: Fluid Imbalance (Overdose) Goal: Fluid Balance Outcome: Ongoing (Interventions Implemented as Appropriate) Problem: Hemodynamic Instability (Overdose) Goal: Effective Tissue Perfusion Outcome: Ongoing (Interventions Implemented as Appropriate) Problem: Neurologic Impairment (Overdose) Goal: Optimal Neurologic Function Outcome: Ongoing (Interventions Implemented as Appropriate) * Consult Note - Rosetta Madden DO - 01/08/2024 10:23 AM EDT Psychiatric Inpatient Consultation Follow Up Note Time of Consultation: 10:28 AM Reason for consultation: suicide attempt Information Sources: Patient. Electronic Medical Record. Chief Complaint (in patient's own words): better Interim History: Patient seen alone this visit. Result of the IEA probably cause hearing- that probably cause was found- was explained to the patient yesterday. [facility] and this was communicated with the patient. Patient is still accepting of the plan. He denied suicidal thoughts or depressed mood, or thoughts of self-harm, harming others. He feels safe at the hospital, although he would like to leave. Patient stated that if things wereto change where he began to have these thoughts he feels comfortable verbalizing this to the staff.Denied any other complaints when asked. Independent Collateral: none Review of Systems: Psychiatric: See above Physical Exam: Last value Range last 24 hrs Temperature Temp: 36.9 ??C (98.4 ??F) Temp: [36.7 ??C (98.1 ??F)-37 ??C (98.6 ??F)] Heart Rate Heart Rate: (!) 42 Heart Rate: -- Blood Pressure BP: 121/70 BP: (104-138)/(52-71) Respiratory Rate Resp: 18 Resp: [16-19] SpO2 SpO2: 98 % SpO2: [96 %-98 %] Mental Status Examination: Musculoskeletal System: Muscle Strength/Tone (note atrophy, abnormal movements): no abnormal movements Gait and Station: not observed, patient sitting in a chair Psychiatric: Appearance: middle-aged male, in no acute distress, sitting in a chair Behavior: calm, Speech: normal rate & volume Language: fluent in Vietnamese Mood: fine Affect: constricted, somewhat apathetic but mildly anxious, mood-congruent Thought Process: concrete Associations: intact Thought Content: Denies current SI or HI Perception: not observed responding to internal stimuli Orientation: grossly intact by interview Attention/Concentration: able to attend interview Cognition: grossly intact by interview Memory: recent and remote memory grossly intact Fund of Knowledge: appropriate for age and level of functioning Insight: limited Judgment: limited Pertinent Diagnostic Testing (include your own review/interpretation of results): Last 3 wbc, hgb, hct plt Recent Labs 01/08/24 0540 01/07/24 0702 01/06/24 0610 WBC 6.6 8.5 7.1 HGB 14.0 13.0* 12.9* HCT 42.5 38.3* 38.9* PLATELET 173 155 150 Last 3 Lytes Recent Labs 01/08/24 0540 01/07/24 0702 01/06/24 0610 NA 140 143 140 K 4.2 4.0 3.8 CL 103 106 107 CO2 28 27 27 BUN 11 11 10 CREATININE 0.81 0.83 0.85 Last 3 LFTs Recent Labs 01/03/24 0130 AST 27 ALT 22 ALKPHOS 64 BILITOT 0.9 Last Ca, Mg, Phos Recent Labs 01/08/24 0540 CALCIUM 8.8 PHOS 3.6 MAGNESIUM 0.86 External Record Review (include your own review of external notes from any unique sources): Assessment: Jorge is a 43-year-old male with a history of polysubstance use disorder on methadone, also a charted history of ADHD and MDD who presented as a transfer from [facility] for acute toxic encephalopathy and bradycardia in the setting of suspected intentional overdose. His landlord reportedly found him withAMS and he was found to be bradycardic. On initial ED presentation, UDS was positive for cocaine, cannabis, fentanyl, tricyclics, and methadone. He had guanfacine, hydroxyzine, and gabapentin in his pocket. He was intubated at outside hospital ED and transferred to [facility]. Extubated on 01/02. Per initial assessment: Overall assessment was limited secondary to patient's mental status which could be combination of the encephalopathy from his overdose and the effects of his sedation as he was recently extubated prior to interview. Overall however given his recent apparent suicide attempt by overdose HE CANNOT LEAVE AGAINST MEDICAL ADVICE and warrants 1:1 level observation. Whether this suicide attempt was the result of a major depressive episode is unclear at this time, however polysubstance use disorder may well have played a role as his urine drug screen was positive for multiple illicit substances. 01/08/2024 Remains cooperative without any episodes of agitation. Patient is still accepting of plans to transfer to [facility] for involuntary admission. We have reached out to [facility] today and there is no beds available at this time but he is on the waitlist. He Denied depressed mood or SI. We discussed how CM and social work at [facility] will be involved for long-term discharge planning once he is at [facility]. Will plan to continue 1:1 sitter for now until patient demonstrates period of stability. Diagnoses (chronic, acute, include progression/severity): Suicide attempt in the setting of polysubstance use and possible major depressive episode. Plan/Recommendations: #Suicide attempt by overdose (suspect guanfacine, gabapentin, hydroxyzine) #Acute toxic encephalopathy - improving #History of MDD #History of ADHD #hx of PSUD (OUD on methadone) - Patient requires 1:1 observation - Patient cannot leave AMA; on IEA - Methadone resumed; continue to hold other home psychiatric medications - EKG on 01/06 w/ QTC of 397 Agitation recs: Attempt verbal de-escalation first - 1st line: Quetiapine 25mg tid prn for agitation - 2nd line: Haldol 5mg, Ativan 2mg PO or IV/IM if unable to take PO for severe agitation Patient on IEA Status? IEA: YES. Patient is on IEA and cannot leave AMA Rosetta Madden, DO 01/08/2024 Coding Determination 1. Problems/Diagnosis (check one): High Minimal refers to a single minor problem. Example: Poor sleep due to noise in the hospital room. Low refers to two minor problems, or one stable/uncomplicated illness. Examples: Major depression in remission; adjustment disorder with depressed mood. Moderate refers to one illness with new onset, progression, exacerbation, complication, or side effects; or two stable problems. Examples: Recurrent major depression with exacerbation or progression or side effects of treatment; stable schizophrenia and alcohol use disorder; acute alcohol withdrawal; anorexia with systemic symptoms such as bradycardia. High refers to one chronic problem with severe progression, exacerbation, or side effects; or one problem with threat to life or bodily function. Examples: any psychiatric illness with suicidal or homicidal ideation or thoughts of self- harm; delirium; any eating disorder with severe medical consequences; major depression with significant functional decline; any severe side effects of psychiatric interventions (NMS, hyponatremia, lithium toxicity syndrome, etc); any psychiatric illness meeting the severe specifier. 2. Data Review/Analysis (check one): Moderate Low refers to (1) review of notes and test results or (2) assessment from a collateral source. Moderate requires one of the following: All three of the following: review of notes, review of test results, assessment from a collateral source. Discussion of test interpretation or management with an external physician/provider (primary team included). High requires both of the following (same options from Moderate above): All three of the following: review of notes, review of test results, assessment from a collateral source. Discussion of test interpretation or management with an external physician/provider (primary team included). 3. Patient Risk (check one): High Minimal refers to minimal risk from additional testing/treatment. Example: Bereavement. No medications recommended. Low refers to low risk from additional testing/treatment. Example: only interventions are minimallyinvasive or otherwise low risk (serum labs, melatonin, continuing an SSRI). Moderate refers to moderate risk from additional testing/treatment. Examples: starting prescriptionmedication with only moderate risk. Moderate also includes diagnosis or treatment significantly limited by social determinants of health such as food/housing insecurity, transportation issues, financial limitations, etc. High refers to high risk from additional testing/treatment. Examples: therapies requiring monitoring of serum level (lithium, valproate), medications with specific identified risks (QTc-prolonging medications in certain patients, SSRIs in patients with risk of bleeding). Discussions of higher levels of psychiatric intervention/care (1:1 sitter, voluntary psychiatric hospitalization, IEA, ECT). Patients who may require medical interventions against their wishes when they lack capacity to refuse those interventions; patients who lack capacity to choose to leave the hospital AMA. Discussion of high risk interventions that may be necessary to ensure safety (parenteral medications for managementof agitation; restraints; security presence). Risk of acute withdrawal. Complexity of MDM Determination: Choose the appropriate level in the first 3 columns based upon what you indicated above. Then 2 outof 3 elements must be met to qualify for the highest appropriate level of complexity. Problems/Diagnosis Data Review/Analysis Patient Risk Complexity of Medical Decision-Making CPT CODE [] Minimal/Low [] Low [] Minimal/Low [] Low 91930 [] Moderate [x] Moderate [] Moderate [] Moderate 66185 [x] High [] High [x] High [x] High 94337 Final Coding Determination: High Associated attestation - Ayad Cardona MD - 01/08/2024 11:01 AM EDT Psychiatry Attending Attestation I saw and evaluated the patient with Dr. Madden. I reviewed the patient???s history during the visit and I agree with the details as written. My exam confirms the resident's findings. The assessment andplan were formulated in discussion with me and I agree with them as documented. Major issues addressed/discussed: Patient assessed at bedside where he was noted be sitting at bedside chair. Patient reports that heis doing well today, and that he does not have any SI/HI. He does report feeling safe in the hospital. He had some clarifying questions about IEA process, including how long he might be hospitalized,and when he might be able to be transferred. He had no other complaints or concerns when asked. Called admissions department at [facility], they informed me that patient is number 3 on the waiting list. We will continue to follow until patient is transferred. No other changes recommended today. Ayad Cardona MD, MPH 01/08/24 Department of Psychiatry Pager #[phone] * Plan of Care - Ivory Miller RN - 01/08/2024 6:12 AM EDT OUTCOME EVALUATION NOTE: OUTCOME SUMMARY: Pt A&Ox4, bradycardic with HR above 40's. Complained of OCASIO managed by Tylenol. Sitter at bedside. Safety maintained. PLAN MOVING FORWARD: VS Q4 Monitor for Opioid withdrawal 1:1 sitter Maintain Safety INDIVIDUALIZED FALL PREVENTION INTERVENTIONS: Patient-specific fall risk factors per assessment: Generalized weakness Assistance: SBA Supervision:1:1 Sitter Surveillance: Bed locked in low position, call [place] within reach, purposeful hourly rounding, clutter free environment, bed/chair alarm on Patient-specific fall prevention interventions for sensory deficits provided: N/A CPG GOAL OUTCOME EVALUATION: Continue care plan as documented * Consult Note - Danita Celestin MD - 01/07/2024 2:48 PM EDT Psychiatric Inpatient Consultation Follow Up Note Time of Consultation: 2:30PM Reason for consultation: suicide attempt Information Sources: Patient. Electronic Medical Record. Chief Complaint (in patient's own words): better Interim History: Patient seen with one of his outpatient coordinators in the room. Result of the IEA probably cause hearing- that probably cause was found- was explained to the patient. He denied suicidal thoughts ordepressed mood. Asked whether there were therapy skills that he could be working on while he awaitsa bed at [facility]. Asked about what a stay at [facility] looks like. Denied any other complaints. Seemed to take in stride the news about the IEA being upheld. Independent Collateral: none Review of Systems: Psychiatric: See above Physical Exam: Last value Range last 24 hrs Temperature Temp: 36.7 ??C (98.1 ??F) Temp: [36.6 ??C (97.9 ??F)-37 ??C (98.6 ??F)] Heart Rate Heart Rate: (!) 42 Heart Rate: -- Blood Pressure BP: 134/71 BP: (96-134)/(54-71) Respiratory Rate Resp: 18 Resp: [17-20] SpO2 SpO2: 98 % SpO2: [93 %-100 %] Mental Status Examination: Musculoskeletal System: Muscle Strength/Tone (note atrophy, abnormal movements): no abnormal movements Gait and Station: not observed, patient sitting in a chair Psychiatric: Appearance: middle-aged male, in no acute distress, sitting in a chair Behavior: calm, Speech: normal rate & volume Language: fluent in Vietnamese Mood: fine Affect: constricted, somewhat apathetic but mildly anxious, mood-congruent Thought Process: concrete Associations: intact Thought Content: Denies current SI or HI Perception: not observed responding to internal stimuli Orientation: grossly intact by interview Attention/Concentration: able to attend interview Cognition: grossly intact by interview Memory: recent and remote memory grossly intact Fund of Knowledge: appropriate for age and level of functioning Insight: limited Judgment: limited Pertinent Diagnostic Testing (include your own review/interpretation of results): Last 3 wbc, hgb, hct plt Recent Labs 01/07/24 0702 01/06/24 0610 01/05/24 0420 WBC 8.5 7.1 8.6 HGB 13.0* 12.9* 12.2* HCT 38.3* 38.9* 36.4* PLATELET 155 150 136* Last 3 Lytes Recent Labs 01/07/24 0702 01/06/24 0610 01/05/24 0419 NA 143 140 140 K 4.0 3.8 3.7 CL 106 107 107 CO2 27 27 25 BUN 11 10 14 CREATININE 0.83 0.85 0.90 Last 3 LFTs Recent Labs 01/03/24 0130 AST 27 ALT 22 ALKPHOS 64 BILITOT 0.9 Last Ca, Mg, Phos Recent Labs 01/07/24 0702 CALCIUM 8.8 PHOS 3.0 MAGNESIUM 0.83 External Record Review (include your own review of external notes from any unique sources): Assessment: Jorge is a 43-year-old male with a history of polysubstance use disorder on methadone, also a charted history of ADHD and MDD who presented as a transfer from [facility] for acute toxic encephalopathy and bradycardia in the setting of suspected intentional overdose. His landlord reportedly found him withAMS and he was found to be bradycardic. On initial ED presentation, UDS was positive for cocaine, cannabis, fentanyl, tricyclics, and methadone. He had guanfacine, hydroxyzine, and gabapentin in his pocket. He was intubated at outside hospital ED and transferred to [facility]. Extubated on 01/02. Per initial assessment: Overall assessment was limited secondary to patient's mental status which could be combination of the encephalopathy from his overdose and the effects of his sedation as he was recently extubated prior to interview. Overall however given his recent apparent suicide attempt by overdose HE CANNOT LEAVE AGAINST MEDICAL ADVICE and warrants 1:1 level observation. Whether this suicide attempt was the result of a major depressive episode is unclear at this time, however polysubstance use disorder may well have played a role as his urine drug screen was positive for multiple illicit substances. 01/07/2024 Received news that IEA was upheld well and asked questions about next steps. Remains cooperative without any episodes of agitation. Denied depressed mood or SI. Will plan to continue 1:1 sitter for now until patient demonstrates period of stability. Diagnoses (chronic, acute, include progression/severity): Suicide attempt in the setting of polysubstance use and possible major depressive episode. Plan/Recommendations: #Suicide attempt by overdose (suspect guanfacine, gabapentin, hydroxyzine) #Acute toxic encephalopathy - improving #History of MDD #History of ADHD #hx of PSUD (OUD on methadone) - Patient requires 1:1 observation - Patient cannot leave AMA; on IEA - Methadone resumed; continue to hold other home psychiatric medications - EKG on 01/06 w/ QTC of 397 Agitation recs: Attempt verbal de-escalation first -1st line: Quetiapine 25mg tid prn for agitation - 2nd line: Haldol 5mg, Ativan 2mg PO or IV/IM if unable to take PO for severe agitation Patient on IEA Status? IEA: YES. Patient is on IEA and cannot leave AMA Danita Celestin MD 01/07/2024 Coding Determination 1. Problems/Diagnosis (check one): High Minimal refers to a single minor problem. Example: Poor sleep due to noise in the hospital room. Low refers to two minor problems, or one stable/uncomplicated illness. Examples: Major depression in remission; adjustment disorder with depressed mood. Moderate refers to one illness with new onset, progression, exacerbation, complication, or side effects; or two stable problems. Examples: Recurrent major depression with exacerbation or progression or side effects of treatment; stable schizophrenia and alcohol use disorder; acute alcohol withdrawal; anorexia with systemic symptoms such as bradycardia. High refers to one chronic problem with severe progression, exacerbation, or side effects; or one problem with threat to life or bodily function. Examples: any psychiatric illness with suicidal or homicidal ideation or thoughts of self- harm; delirium; any eating disorder with severe medical consequences; major depression with significant functional decline; any severe side effects of psychiatric interventions (NMS, hyponatremia, lithium toxicity syndrome, etc); any psychiatric illness meeting the severe specifier. 2. Data Review/Analysis (check one): Moderate Low refers to (1) review of notes and test results or (2) assessment from a collateral source. Moderate requires one of the following: All three of the following: review of notes, review of test results, assessment from a collateral source. Discussion of test interpretation or management with an external physician/provider (primary team included). High requires both of the following (same options from Moderate above): All three of the following: review of notes, review of test results, assessment from a collateral source. Discussion of test interpretation or management with an external physician/provider (primary team included). 3. Patient Risk (check one): High Minimal refers to minimal risk from additional testing/treatment. Example: Bereavement. No medications recommended. Low refers to low risk from additional testing/treatment. Example: only interventions are minimallyinvasive or otherwise low risk (serum labs, melatonin, continuing an SSRI). Moderate refers to moderate risk from additional testing/treatment. Examples: starting prescriptionmedication with only moderate risk. Moderate also includes diagnosis or treatment significantly limited by social determinants of health such as food/housing insecurity, transportation issues, financial limitations, etc. High refers to high risk from additional testing/treatment. Examples: therapies requiring monitoring of serum level (lithium, valproate), medications with specific identified risks (QTc-prolonging medications in certain patients, SSRIs in patients with risk of bleeding). Discussions of higher levels of psychiatric intervention/care (1:1 sitter, voluntary psychiatric hospitalization, IEA, ECT). Patients who may require medical interventions against their wishes when they lack capacity to refuse those interventions; patients who lack capacity to choose to leave the hospital AMA. Discussion of high risk interventions that may be necessary to ensure safety (parenteral medications for managementof agitation; restraints; security presence). Risk of acute withdrawal. Complexity of MDM Determination: Choose the appropriate level in the first 3 columns based upon what you indicated above. Then 2 outof 3 elements must be met to qualify for the highest appropriate level of complexity. Problems/Diagnosis Data Review/Analysis Patient Risk Complexity of Medical Decision-Making CPT CODE [] Minimal/Low [] Low [] Minimal/Low [] Low 93935 [] Moderate [x] Moderate [] Moderate [] Moderate 45733 [x] High [] High [x] High [x] High 95033 Final Coding Determination: High Associated attestation - Ayad Cardona MD - 01/07/2024 3:42 PM EDT Psychiatry Attending Attestation I saw and evaluated the patient with Dr. Celestin. I reviewed the patient???s history during the visit and I agree with the details as written. My exam confirms the resident's findings. The assessmentand plan were formulated in discussion with me and I agree with them as documented. Major issues addressed/discussed: Patient assessed at bedside. He was informed that after probable cause hearing for IEA earlier today, probable cause was found. Patient asks questions about what such a stay might look like. Currently denies SI/HI. Patient is appropriate for involuntary psychiatric hospitalization and we will continue to follow until he is able to be transferred. Ayad Cardona MD, MPH 01/07/24 Department of Psychiatry Pager #[phone] * Consult Note - Julita Silverman PA - 01/07/2024 1:07 PM EDT Images from the original note were not included. [facility] [place] [id number] CARDIOLOGY CONSULT NOTE Date of Consultation: 01/07/2024 Admit Date: 01/03/2024 Hospital Day 4 days Reason for Consult: bradycardia iso alpha agonist overdose Active Problems: Active Hospital Problems Diagnosis Toxic encephalopathy Resolved Hospital Problems No resolved problems to display. ID: Akshat Serrano is a 43 y.o. male with a past medical history of polysubstance use disorder(on methadone at [facility]), ADHD, MDD who presented to [facility] with acute toxic encephalopathy and bradycardia in setting of suspected alpha agonist intentional overdose. On initial ED presentation, UDS was positive for cocaine, cannabis, fentanyl, tricyclics, and methadone. He had guanfacine, hydroxyzine, and gabapentin in his pocket. He was intubated at outside hospital ED and transferred to [facility] ICU. Has since been extubated and transferred to Hospital Medicine for ongoing medical managementwhile pending IEA admission. Cardiology is consulted for bradycardia. Interval events/Subjective: - Patient reports feeling well with no dizziness/LH, dyspnea, or chest pain. He expresses desire todischarge [facility]. - Self removed telemetry while I was evaluating due to agitation - Telemetry notable for HR 50-60s, SR upon my evaluation - Nurse reports HR in 40s earlier this morning; asymptomatic - EKG with sinus bradycardia @ 50 bpm. Inpatient Medications: methadone (Methadose) oral liquid 120 mg Oral Daily nicotine 1 patch Transdermal Daily And Patch Verification 1 patch Transdermal BID nicotine 1 patch Transdermal Once And Patch Verification 1 patch Transdermal BID enoxaparin 40 mg Subcutaneous Nightly Physical Exam: Last value Range last 8 hrs Temperature Temp: 36.8 ??C (98.2 ??F) Temp: [36.6 ??C (97.9 ??F)-36.9 ??C (98.4 ??F)] Heart Rate Heart Rate: (!) 42 Heart Rate: -- Blood Pressure BP: 132/59 BP: (117-132)/(59-62) Respiratory Rate Resp: 19 Resp: [17-19] SpO2 SpO2: 98 % SpO2: [96 %-100 %] Intake/Output Summary (Last 24 hours) at 01/07/2024 1308 Last data filed at 01/07/2024 1100 Gross per 24 hour Intake 620 ml Output -- Net 620 ml Wt & BMI By Encounter Date Flowsheet Row Admission (Current) from 01/03/2024 in Neurosciences and ENT Unit Level 5 Wing D at [facility] Admission (Discharged) from 07/05/2019 in Medical Intensive Care Unit [facility] Weight 84.3 kg (185 lb 13.6 oz) 1 01/04/2024 0221 73 kg (160 lb 15 oz) 1 07/14/2019 0300 BMI 27.58 1 01/03/2024 0119 29.1 1 07/05/2019 1824 General: Pleasant male in NAD. Cardiac: RRR, normal S1/S2, no m/r/g. . Respiratory: Adequate air entry throughout. No adventitious sounds. Abdominal: Soft. Normal bowel sounds. Extremities: No edema. Labs reviewed and notable for: K 4.0 Mg 0.83 Hgb 13.0 Relevant imaging: ECG 01/07/24 Assessment/Recommendations: Akshat Serrano is a 43 y.o. male with a past medical history of polysubstance use disorder (onmethadone at [facility]), ADHD, MDD who presented to [facility] with acute toxic encephalopathy and bradycardia in setting of suspected alpha agonist intentional overdose. He was intubated at outside hospital ED and transferred to [facility] ICU. Has since been extubated and transferred to Hospital Medicine for ongoing medical management while pending IEA admission. Cardiology is consulted for guidance regarding bradycardia. 24 hour telemetry review notable for sinus rhythm with rates ranging between 30s-70s bpm. Rates in 30s seem to predominantly occur during sleeping hours. Upon my evaluation, tele notable for sinus rhythm with 50-60s. Upon review of prior EKGs from 2019 at which time was similarly hospitalized with AMS 2/2 substance abuse, HR was in the 40-50s at that time as well. He denies any lightheadedness, dizziness, chest pain, dyspnea or other symptoms that would be consistent with symptomatic bradycardia. He has not required any intervention for bradycardia such as atropine or pacing. He is hemodynamically stable. Suspect bradycardia related to alpha agonist overdose and/or baseline bradycardia. Would not recommend any interventions at this time. - Continue telemetry monitoring. - Avoid AV clint blockers/alpha agonists (guanfacine) Case discussed with Dr. Davies. [facility] 01/07/2024 Associated attestation - Larry Davies MD - 01/12/2024 9:51 AM EDT I have seen and examined the patient, have reviewed labs, pertinent images, and EKGs. I agree with the H&P, formulation, and plan as directed by the Julita Silverman * Plan of Care - Ivory Miller RN - 01/07/2024 6:22 AM EDT OUTCOME EVALUATION NOTE: OUTCOME SUMMARY: Pt A&Ox4, bradycardic with HR as low as 33 to low 50's, SBP at 90's. Complained of OCASIO managed by Tylenol. Showered. Sitter at bedside. Safety maintained. PLAN MOVING FORWARD: VS Q4 Monitor for Opioid withdrawal 1:1 sitter Maintain Safety INDIVIDUALIZED FALL PREVENTION INTERVENTIONS: Patient-specific fall risk factors per assessment: Generalized weakness Assistance: SBA Supervision:1:1 Sitter Surveillance: Bed locked in low position, call [place] within reach, purposeful hourly rounding, clutter free environment, bed/chair alarm on Patient-specific fall prevention interventions for sensory deficits provided: N/A CPG GOAL OUTCOME EVALUATION: Continue care plan as documented. * Care Management - Criselda Navarro MSW - 01/06/2024 11:59 AM EDT OFFICE OF CARE MANAGEMENT PROGRESS NOTE LOS: Hospital Day 3 days Chart reviewed, care reviewed with primary team and at interdisciplinary rounds. Patient continues to meet inpatient level of care related to: Toxic encephalopathy Functional status prior to admission: Independent Home Environment: Others in the home: alone. Current Living Arrangements: home/apartment/condo. Accessibility Concerns: 4th floor apartment, uses elevator from 1st floor to 4th floor. Current Functional Ability: Independent DME used at home: none DME Needed at Discharge: tbd Patient is insured through: Primary Insurance: [place] Payor: [place] / Plan: [place] PRIMARY CARE PLUS / Product Type: *No Product type* / Secondary Insurance: N/A Last Physical Therapy Recommendation: with Last Occupational Therapy Recommendation: with Plan for discharge is: When Medically Ready from Medicine will be transitioning to Psychiatry unit per IEA Agency Referrals: tbd Transportation: friend Barriers to discharge: mental health needs Plan going forward: Care Management will continue to follow and assist with discharge planning and coordination of care as indicated. Anticipated Date of Discharge: 01/07/2024 MATA Turner * Initial Assessments - Criselda Navarro MSW - 01/06/2024 11:45 AM EDT Office of Care Management Initial Assessment MATA Garcia reviewed record and discussed patient with Care Team. Source of Information: Team, bedside nurse, medical record, and Patient, Chart Review MATA Introduced self/reviewed role; services accepted. Admitted From: Transfer from another hospital Location: [facility] ED Reason for Hospitalization: took pills Covid Vaccination Status: Unvaccinated Last COVID test: Past medical History: Past Medical History: Diagnosis Date No known problems Hospitalizations Within the Past 30 Days: no previous admission in last 30 days Current Decision-Making Capacity: Self If AD's have not been completed the following surrogate would be surrogate decision maker per [place] surrogate decision making law. (Only good for 180 days) Any patient receiving care in [place] must abide by [place] law. The hierarchy for surrogate decision making is: (a) Patient???s spouse or civil union partner unless there is a divorce proceeding, separation agreement, or restraining order limiting that person???s relationship with the patient. (b) Any adult son or daughter of the patient. (c) Either parent of the patient. (d) Any adult brother or sister of the patient. (e) Any adult grandchild of the patient. (f) Any grandparent of the patient. (g) Any adult aunt, uncle, niece, or nephew of the patient. (h) A close friend of the patient. (i) The agent with financial power of corporate associate attorney or a conservator appointed in accordance with RSA 464-A. (j) The guardian of the patient???s estate. Advance Care Planning: Attempt Cardiopulmonary Resuscitation - Inpatient <no information> -Advanced Directive: No, declines Current Coping/Education/Information Needs: Difficulty coping Current Functional Ability: Independent Functional Status Prior to Admission: Independent Prior ADLs & IADLs: Independent with all ADLs & IADLs Home Environment: Others in the home: alone. Current Living Arrangements: home/apartment/condo. Accessibility Concerns:4th floor apartment, uses elevator from 1st floor to 4th floor. In the last 12 months, was there a time when you were not able to pay the mortgage or rent on time?: Yes (have community agencies that provide assistance to pay rent) In the last 12 months, how many places have you lived?: 2 In the last 12 months, was there a time when you did not have a steady place to sleep or slept in [place] (including now)?: No Within the past 12 months, you worried that your food would run out before you got the money to buymore.: Never true Within the past 12 months, the food you bought just didn't last and you didn't have money to get more.: Never true Resource / Environmental Concerns: Resource/Environmental Concerns: none In the past 12 months, has lack of transportation kept you from medical appointments or from getting medications?: Yes (problems in the past year but currently takes the bus where he needs to go) In the past 12 months, has lack of transportation kept you from meetings, work, or from getting things needed for daily living?: Yes (problems in the past year but currently takes the bus where he needs to go) Current DME: none Home Address listed as: [address] [address] Social & Family Supports: All names listed below confirmed with patient as current and correct Extended Emergency Contact Information Primary Emergency Contact: Cindy Lai Relation: Grandchild Secondary Emergency Contact: SHEN LYONS Address: [address] [place] [address] Mobile Relation: Friend Current Care Provided by: self Provides Primary Care For: no one Caregiver if needed: none Quality of Family relationships: involved Community Resources being provided currently: outpatient psychiatric care, other (see comments), support group(s) (community agencies that help, case management) Behavioral Health History: Major depression, ADHS, MDD and suicidal Substance Use/Abuse listed: Social History Tobacco Use Smoking Status Every Day Packs/day: 1.00 Years: 16.00 Additional pack years: 0.00 Total pack years: 16.00 Types: Cigarettes Smokeless Tobacco Not on file Tobacco Comments pt given smoking cessation packet In the past year have you used an illegal drug or used a prescription medication for non-medical reasons?: Yes 0 No problems reported 1-2 Low level 3-5 Moderate level 6-8 Substantial level 9- 10 Severe level 0 to 7 points: Low risk 8 to 15 points: Medium risk 16 to 19 points: High risk 20 to 40 points: Addiction likely Other Pertinent/Service Specific Information: Pt will be gong to Psych per IEA when medically ready Health/Prescription Coverage: Primary Insurance: [place] Pay[place] / Plan[place] / Product Type: *No Product type* / Secondary Insurance: N/A ; Prescription Coverage: Yes Preferred Pharmacy: [id number] [place], [place] - [address] [place] [address] AT [address] [facility] [address] [address] [facility] [id number] [place] Status: Patient is a : No Primary Care Provider listed: Adwoa Nixon MD [phone] Patient/Caregiver Goals of Treatment: return to apartment Potential Needs for Transition of Care: nurse outreach case manager, mental health services Agency Referrals: tbd Transportation: no concerns Transportation Anticipated: family or friend will provide Concerns to be Addressed: mental health, Suboxone / Methadone management, discharge planning, suicidal Assessment: Patient is admitted to Medicine service for Toxic encephalopathy Plan: At DC from Medicine pt will be going to Psych by way of IEA. Final goal is to return home A member of the Care Management team will continue to monitor progress, follow for continuity of care and assist with transition of care planning. MATA Turner * Consult Note - Rajinder Cruz MD - 01/06/2024 10:38 AM EDT Psychiatric Inpatient Consultation Follow Up Note Time of Consultation: 09:30AM Reason for consultation: suicide attempt Information Sources: Patient. Electronic Medical Record. Chief Complaint (in patient's own words): better Interim History: Patient is seen in his room with 1:1 sitter and he is talking on the phone. He requests to have hiskeys removed from a locked drawer at bedside and his friend will come to pick them up. Requests colored pencils or markers to use. Not having suicidal thoughts today. Feels better since restarting his methadone. Does not feel as though antidepressants have been helpful in the past and would like tohold off on starting new mental health medications for now. His usp goal is to taper off of methadone. Denies abdominal cramping, diarrhea or discomfort associated with opioid withdrawal. Oriented today and does not feel subjectively confused. No other new complaints or needs endorsed today. Independent Collateral: none Review of Systems: Psychiatric: See above Physical Exam: Last value Range last 24 hrs Temperature Temp: 37 ??C (98.6 ??F) Temp: [36.6 ??C (97.9 ??F)-37.3 ??C (99.1 ??F)] Heart Rate Heart Rate: (!) 42 Heart Rate: [36-56] Blood Pressure BP: 105/65 BP: (84-105)/(39-65) Respiratory Rate Resp: 19 Resp: [16-20] SpO2 SpO2: 98 % SpO2: [96 %-98 %] Mental Status Examination: Musculoskeletal System: Muscle Strength/Tone (note atrophy, abnormal movements): no abnormal movements Gait and Station: not observed, patient lying in bed Psychiatric: Appearance: middle-aged male, in no acute distress, lying in bed on telemetry monitoring Behavior: initially calm, although unengaged; became progressively irritable and hostile. Later tried to pull off EKG leads and to yank on IV line Speech: poverty, normal volume Language: fluent in Vietnamese Mood: okay Affect: constricted, indifferent, mood-congruent Thought Process: concrete Associations: intact Thought Content: Denies current SI or HI Perception: not observed responding to internal stimuli Orientation: grossly intact by interview Attention/Concentration: able to attend interview Cognition: grossly intact by interview Memory: recent and remote memory grossly intact Fund of Knowledge: appropriate for age and level of functioning Insight: limited Judgment: limited Pertinent Diagnostic Testing (include your own review/interpretation of results): Last 3 wbc, hgb, hct plt Recent Labs 01/06/24 0610 01/05/24 0420 01/04/24 0217 WBC 7.1 8.6 7.5 HGB 12.9* 12.2* 11.4* HCT 38.9* 36.4* 34.9* PLATELET 150 136* 133* Last 3 Lytes Recent Labs 01/06/24 0610 01/05/24 0419 01/04/24 0219 NA 140 140 140 K 3.8 3.7 3.4* CL 107 107 104 CO2 27 25 27 BUN 10 14 18 CREATININE 0.85 0.90 0.90 Last 3 LFTs Recent Labs 01/03/24 0130 AST 27 ALT 22 ALKPHOS 64 BILITOT 0.9 Last Ca, Mg, Phos Recent Labs 01/06/24 0610 CALCIUM 8.7 PHOS 3.3 MAGNESIUM 0.83 External Record Review (include your own review of external notes from any unique sources): Assessment: Jorge is a 43-year-old male with a history of polysubstance use disorder on methadone, also a charted history of ADHD and MDD who presented as a transfer from [facility] for acute toxic encephalopathy and bradycardia in the setting of suspected intentional overdose. His landlord reportedly found him withAMS and he was found to be bradycardic. On initial ED presentation, UDS was positive for cocaine, cannabis, fentanyl, tricyclics, and methadone. He had guanfacine, hydroxyzine, and gabapentin in his pocket. He was intubated at outside hospital ED and transferred to [facility]. Extubated on 01/02. Per initial assessment: Overall assessment was limited secondary to patient's mental status which could be combination of the encephalopathy from his overdose and the effects of his sedation as he was recently extubated prior to interview. Overall however given his recent apparent suicide attempt by overdose HE CANNOT LEAVE AGAINST MEDICAL ADVICE and warrants 1:1 level observation. Whether this suicide attempt was the result of a major depressive episode is unclear at this time, however polysubstance use disorder may well have played a role as his urine drug screen was positive for multiple illicit substances. 01/06/2024 Remains cooperative and without agitation. Denies opioid withdrawal symptoms and tolerating methadone without adverse effects. Will need to continue 1:1 sitter for now until patient demonstrates period of stability. Diagnoses (chronic, acute, include progression/severity): Suicide attempt in the setting of polysubstance use and possible major depressive episode. 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 IEA: YES. Patient is on IEA and cannot leave AMA Rajinder Cruz MD 01/06/2024 Coding Determination 1. Problems/Diagnosis (check one): High Minimal refers to a single minor problem. Example: Poor sleep due to noise in the hospital room. Low refers to two minor problems, or one stable/uncomplicated illness. Examples: Major depression in remission; adjustment disorder with depressed mood. Moderate refers to one illness with new onset, progression, exacerbation, complication, or side effects; or two stable problems. Examples: Recurrent major depression with exacerbation or progression or side effects of treatment; stable schizophrenia and alcohol use disorder; acute alcohol withdrawal; anorexia with systemic symptoms such as bradycardia. High refers to one chronic problem with severe progression, exacerbation, or side effects; or one problem with threat to life or bodily function. Examples: any psychiatric illness with suicidal or homicidal ideation or thoughts of self- harm; delirium; any eating disorder with severe medical consequences; major depression with significant functional decline; any severe side effects of psychiatric interventions (NMS, hyponatremia, lithium toxicity syndrome, etc); any psychiatric illness meeting the severe specifier. 2. Data Review/Analysis (check one): Moderate Low refers to (1) review of notes and test results or (2) assessment from a collateral source. Moderate requires one of the following: All three of the following: review of notes, review of test results, assessment from a collateral source. Discussion of test interpretation or management with an external physician/provider (primary team included). High requires both of the following (same options from Moderate above): All three of the following: review of notes, review of test results, assessment from a collateral source. Discussion of test interpretation or management with an external physician/provider (primary team included). 3. Patient Risk (check one): High Minimal refers to minimal risk from additional testing/treatment. Example: Bereavement. No medications recommended. Low refers to low risk from additional testing/treatment. Example: only interventions are minimallyinvasive or otherwise low risk (serum labs, melatonin, continuing an SSRI). Moderate refers to moderate risk from additional testing/treatment. Examples: starting prescriptionmedication with only moderate risk. Moderate also includes diagnosis or treatment significantly limited by social determinants of health such as food/housing insecurity, transportation issues, financial limitations, etc. High refers to high risk from additional testing/treatment. Examples: therapies requiring monitoring of serum level (lithium, valproate), medications with specific identified risks (QTc-prolonging medications in certain patients, SSRIs in patients with risk of bleeding). Discussions of higher levels of psychiatric intervention/care (1:1 sitter, voluntary psychiatric hospitalization, IEA, ECT). Patients who may require medical interventions against their wishes when they lack capacity to refuse those interventions; patients who lack capacity to choose to leave the hospital AMA. Discussion of high risk interventions that may be necessary to ensure safety (parenteral medications for managementof agitation; restraints; security presence). Risk of acute withdrawal. Complexity of MDM Determination: Choose the appropriate level in the first 3 columns based upon what you indicated above. Then 2 outof 3 elements must be met to qualify for the highest appropriate level of complexity. Problems/Diagnosis Data Review/Analysis Patient Risk Complexity of Medical Decision-Making CPT CODE [] Minimal/Low [x] Low [] Minimal/Low [] Low 22854 [x] Moderate [] Moderate [] Moderate [x] Moderate 91049 [] High [] High [x] High [] High 56023 Final Coding Determination: High * Plan of Care - Amanda Peck RN - 01/06/2024 6:48 AM EDT OUTCOME EVALUATION NOTE: OUTCOME SUMMARY: No acute changes overnight. Patient continues to earnest down as low as 33 at times, does not sustain. HR 38-42 for majority of shift, asymptomatic, MD aware. Sinus earnest on telemetry. Pt walked aroundunit several times and while ambulating HR improved to 60-70s. Pt is AOx4, calm and cooperative with care. C/o heartburn, prn tylenol administered x 1 with some effect. Pt nauseous and dry-heaving this morning, PO zofran given w/ no effect. IV compazine administered with + relief of nausea. 1:1 sitter remains at bedside. Safety precautions maintained. PLAN MOVING FORWARD: Q4 VS Pain management Nausea management Suicide precautions Monitor for methadone withdrawal IEA referral INDIVIDUALIZED FALL PREVENTION INTERVENTIONS: Patient-specific fall risk factors per assessment: Hospital environment, bradycardia Assistance: Independent, SBA Supervision: Independent, Eyes on, Arms reach Surveillance: Bed locked in low position, call [place] within reach, purposeful hourly rounding, clutter free environment, 1:1 sitter at bedside. Patient-specific fall prevention interventions for sensory deficits provided: N/A CPG GOAL OUTCOME EVALUATION: Continue care plan as documented. Problem: Adult Inpatient Plan of Care Goal: Plan of Care Review Outcome: Ongoing (Interventions Implemented as Appropriate) Goal: Patient-Specific Goal (Individualized) Outcome: Ongoing (Interventions Implemented as Appropriate) Goal: Absence of Hospital-Acquired Illness or Injury Outcome: Ongoing (Interventions Implemented as Appropriate) Goal: Optimal Comfort and Wellbeing Outcome: Ongoing (Interventions Implemented as Appropriate) Goal: Readiness for Transition of Care Outcome: Ongoing (Interventions Implemented as Appropriate) Problem: Inability to Wean (Mechanical Ventilation, Invasive) Goal: Mechanical Ventilation Liberation Outcome: Ongoing (Interventions Implemented as Appropriate) Problem: Skin and Tissue Injury (Mechanical Ventilation, Invasive) Goal: Absence of Device-Related Skin and Tissue Injury Outcome: Ongoing (Interventions Implemented as Appropriate) Problem: Fall Injury Risk Goal: Absence of Fall and Fall-Related Injury Outcome: Ongoing (Interventions Implemented as Appropriate) Problem: Adjustment to Illness (Overdose) Goal: Optimal Coping Outcome: Ongoing (Interventions Implemented as Appropriate) Problem: Bleeding (Overdose) Goal: Absence of Bleeding Outcome: Ongoing (Interventions Implemented as Appropriate) Problem: Dysrhythmia (Overdose) Goal: Stable Heart Rate and Rhythm Outcome: Ongoing (Interventions Implemented as Appropriate) Problem: Fluid Imbalance (Overdose) Goal: Fluid Balance Outcome: Ongoing (Interventions Implemented as Appropriate) Problem: Hemodynamic Instability (Overdose) Goal: Effective Tissue Perfusion Outcome: Ongoing (Interventions Implemented as Appropriate) Problem: Neurologic Impairment (Overdose) Goal: Optimal Neurologic Function Outcome: Ongoing (Interventions Implemented as Appropriate) Problem: Respiratory Compromise (Overdose) Goal: Effective Oxygenation and Ventilation Outcome: Ongoing (Interventions Implemented as Appropriate) * Plan of Care - Kaylie Tsang RN - 01/05/2024 6:23 PM EDT OUTCOME EVALUATION NOTE: OUTCOME SUMMARY: Patient A&Ox4. BP sachin MD notified. Pt is continuously requesting Methadone, medical team to f/u with [facility] in [place], [place] on tomorrow for dosing. Denies nausea/vomiting, CP, SOB. Pain controlled w/ scheduled and PRN medications, see MAR. Patient voiding to commode independently. Pt walked the tate and showered today, 1:1 sitter at bedside at all times. Patient resting in between care. PLAN MOVING FORWARD: Pain control Mobilize D/C planning Kaylie Tsang RN Problem: Adult Inpatient Plan of Care Goal: Plan of Care Review Outcome: Ongoing (Interventions Implemented as Appropriate) Goal: Patient-Specific Goal (Individualized) Outcome: Ongoing (Interventions Implemented as Appropriate) Goal: Absence of Hospital-Acquired Illness or Injury Outcome: Ongoing (Interventions Implemented as Appropriate) Goal: Optimal Comfort and Wellbeing Outcome: Ongoing (Interventions Implemented as Appropriate) Goal: Readiness for Transition of Care Outcome: Ongoing (Interventions Implemented as Appropriate) Problem: Inability to Wean (Mechanical Ventilation, Invasive) Goal: Mechanical Ventilation Liberation Outcome: Ongoing (Interventions Implemented as Appropriate) Problem: Skin and Tissue Injury (Mechanical Ventilation, Invasive) Goal: Absence of Device-Related Skin and Tissue Injury Outcome: Ongoing (Interventions Implemented as Appropriate) Problem: Fall Injury Risk Goal: Absence of Fall and Fall-Related Injury Outcome: Ongoing (Interventions Implemented as Appropriate) Problem: Adjustment to Illness (Overdose) Goal: Optimal Coping Outcome: Ongoing (Interventions Implemented as Appropriate) Problem: Bleeding (Overdose) Goal: Absence of Bleeding Outcome: Ongoing (Interventions Implemented as Appropriate) Problem: Dysrhythmia (Overdose) Goal: Stable Heart Rate and Rhythm Outcome: Ongoing (Interventions Implemented as Appropriate) Problem: Fluid Imbalance (Overdose) Goal: Fluid Balance Outcome: Ongoing (Interventions Implemented as Appropriate) Problem: Hemodynamic Instability (Overdose) Goal: Effective Tissue Perfusion Outcome: Ongoing (Interventions Implemented as Appropriate) Problem: Neurologic Impairment (Overdose) Goal: Optimal Neurologic Function Outcome: Ongoing (Interventions Implemented as Appropriate) Problem: Respiratory Compromise (Overdose) Goal: Effective Oxygenation and Ventilation Outcome: Ongoing (Interventions Implemented as Appropriate) * Consult Note - Ernie Woods MD - 01/05/2024 4:20 PM EDT Psychiatric Inpatient Consultation Follow Up Note Time of Consultation: 11am Reason for consultation: suicide attempt Information Sources: Patient. Electronic Medical Record. Chief Complaint (in patient's own words): I'm okay Interim History: Per chart review, Continued with episodes of bradycardia in the 40-60 range and hypotension. Extubated morning of 01/02. On interview: Patient calmer and more willing to engage than past interviews. Endorses indifference towards current mood and suicide attempt. Has trended in this direction since initially requiring security when served [employer] papers yesterday. Endorses many year history of SI and deperssion, cannot say what tipped him over the edge to make an attempt on life. Is hoping for methadone re-initiation, feel that may be playing a role in his anxiety. Has no complaints about the hospital, endorsed understanding with respect to [place] and [place] laws as to why he is not allowed to leave. Spoke about efforts he's made to improve MH access in his community. Looking forward to art classes when he leaves hospital. Does not troy re any medication beyond home gabapentin and home methadone, reports self tapering the rest and that he's currently in process of tapering his methadone. Independent Collateral: none Review of Systems: Psychiatric: See above Physical Exam: Last value Range last 24 hrs Temperature Temp: 36.9 ??C (98.4 ??F) Temp: [36.6 ??C (97.8 ??F)-37.2 ??C (99 ??F)] Heart Rate Heart Rate: 56 Heart Rate: [41-60] Blood Pressure BP: 98/53 BP: (92-110)/(53-66) Respiratory Rate Resp: 20 Resp: [20-32] SpO2 SpO2: 98 % SpO2: [96 %-99 %] Mental Status Examination: Musculoskeletal System: Muscle Strength/Tone (note atrophy, abnormal movements): no abnormal movements Gait and Station: not observed, patient lying in bed Psychiatric: Appearance: middle-aged male, in no acute distress, lying in bed on telemetry monitoring Behavior: initially calm, although unengaged; became progressively irritable and hostile. Later tried to pull off EKG leads and to yank on IV line Speech: poverty, normal volume Language: fluent in Vietnamese Mood: okay Affect: constricted, indifferent, mood-congruent Thought Process: concrete Associations: intact Thought Content: Denies current SI or HI Perception: not observed responding to internal stimuli Orientation: grossly intact by interview Attention/Concentration: able to attend interview Cognition: grossly intact by interview Memory: recent and remote memory grossly intact Fund of Knowledge: appropriate for age and level of functioning Insight: limited Judgment: limited Pertinent Diagnostic Testing (include your own review/interpretation of results): Last 3 wbc, hgb, hct plt Recent Labs 01/05/24 0420 01/04/24 0217 01/03/24 0130 WBC 8.6 7.5 8.8 HGB 12.2* 11.4* 12.2* HCT 36.4* 34.9* 35.7* PLATELET 136* 133* 158 Last 3 Lytes Recent Labs 01/05/24 0419 01/04/24 0219 01/03/24 0130 NA 140 140 142 K 3.7 3.4* 3.9 CL 107 104 104 CO2 25 27 27 BUN 14 18 18 CREATININE 0.90 0.90 0.90 Last 3 LFTs Recent Labs 01/03/24 0130 AST 27 ALT 22 ALKPHOS 64 BILITOT 0.9 Last Ca, Mg, Phos Recent Labs 01/05/24 0419 CALCIUM 8.4* PHOS 3.0 MAGNESIUM 0.74 External Record Review (include your own review of external notes from any unique sources): Assessment: Jorge is a 43-year-old male with a history of polysubstance use disorder on methadone, also a charted history of ADHD and MDD who presented as a transfer from [facility] for acute toxic encephalopathy and bradycardia in the setting of suspected intentional overdose. His landlord reportedly found him withAMS and he was found to be bradycardic. On initial ED presentation, UDS was positive for cocaine, cannabis, fentanyl, tricyclics, and methadone. He had guanfacine, hydroxyzine, and gabapentin in his pocket. He was intubated at outside hospital ED and transferred to [facility]. Extubated on 01/02. Per initial assessment: Overall assessment was limited secondary to patient's mental status which could be combination of the encephalopathy from his overdose and the effects of his sedation as he was recently extubated prior to interview. Overall however given his recent apparent suicide attempt by overdose HE CANNOT LEAVE AGAINST MEDICAL ADVICE and warrants 1:1 level observation. Whether this suicide attempt was the result of a major depressive episode is unclear at this time, however polysubstance use disorder may well have played a role as his urine drug screen was positive for multiple illicit substances. Will reevaluate tomorrow with the intention of further clarifying suicide risk and potentially consentingfor psychiatric inpatient admission. When patient's mental status allows, would also recommend further clarifying medication regimen as there appears to be a discrepancy between what is in his chart,what he overdosed on, and what he reports being prescribed. Would also recommend quetiapine 25 mg 3times daily as needed for agitation. 01/05/2024 More cooperative and calm today, expressed understanding as to why he needs to be hospitalized s/p suicide attempt. Denies SI while here in hospital. Denies complaints. Hoping to re-initiate methadone, does not desire other psychiatric meds aside from home gabapentin. Will need to continue 1:1 sitter for now until patient demonstrates period of stability. Diagnoses (chronic, acute, include progression/severity): Suicide attempt in the setting of polysubstance use and possible major depressive episode. 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 IEA: YES. Patient is on IEA and cannot leave AMA Recommendations were communicated to primary donor services team leader Johny Renee. Ernie Woods MD 01/05/2024 Coding Determination 1. Problems/Diagnosis (check one): High Minimal refers to a single minor problem. Example: Poor sleep due to noise in the hospital room. Low refers to two minor problems, or one stable/uncomplicated illness. Examples: Major depression in remission; adjustment disorder with depressed mood. Moderate refers to one illness with new onset, progression, exacerbation, complication, or side effects; or two stable problems. Examples: Recurrent major depression with exacerbation or progression or side effects of treatment; stable schizophrenia and alcohol use disorder; acute alcohol withdrawal; anorexia with systemic symptoms such as bradycardia. High refers to one chronic problem with severe progression, exacerbation, or side effects; or one problem with threat to life or bodily function. Examples: any psychiatric illness with suicidal or homicidal ideation or thoughts of self- harm; delirium; any eating disorder with severe medical consequences; major depression with significant functional decline; any severe side effects of psychiatric interventions (NMS, hyponatremia, lithium toxicity syndrome, etc); any psychiatric illness meeting the severe specifier. 2. Data Review/Analysis (check one): Moderate Low refers to (1) review of notes and test results or (2) assessment from a collateral source. Moderate requires one of the following: All three of the following: review of notes, review of test results, assessment from a collateral source. Discussion of test interpretation or management with an external physician/provider (primary team included). High requires both of the following (same options from Moderate above): All three of the following: review of notes, review of test results, assessment from a collateral source. Discussion of test interpretation or management with an external physician/provider (primary team included). 3. Patient Risk (check one): High Minimal refers to minimal risk from additional testing/treatment. Example: Bereavement. No medications recommended. Low refers to low risk from additional testing/treatment. Example: only interventions are minimallyinvasive or otherwise low risk (serum labs, melatonin, continuing an SSRI). Moderate refers to moderate risk from additional testing/treatment. Examples: starting prescriptionmedication with only moderate risk. Moderate also includes diagnosis or treatment significantly limited by social determinants of health such as food/housing insecurity, transportation issues, financial limitations, etc. High refers to high risk from additional testing/treatment. Examples: therapies requiring monitoring of serum level (lithium, valproate), medications with specific identified risks (QTc-prolonging medications in certain patients, SSRIs in patients with risk of bleeding). Discussions of higher levels of psychiatric intervention/care (1:1 sitter, voluntary psychiatric hospitalization, IEA, ECT). Patients who may require medical interventions against their wishes when they lack capacity to refuse those interventions; patients who lack capacity to choose to leave the hospital AMA. Discussion of high risk interventions that may be necessary to ensure safety (parenteral medications for managementof agitation; restraints; security presence). Risk of acute withdrawal. Complexity of MDM Determination: Choose the appropriate level in the first 3 columns based upon what you indicated above. Then 2 outof 3 elements must be met to qualify for the highest appropriate level of complexity. Problems/Diagnosis Data Review/Analysis Patient Risk Complexity of Medical Decision-Making CPT CODE [] Minimal/Low [] Low [] Minimal/Low [] Low 41371 [] Moderate [x] Moderate [] Moderate [] Moderate 45726 [x] High [] High [x] High [x] High 93570 Final Coding Determination: High Associated attestation - Rajinder Cruz MD - 01/05/2024 5:24 PM EDT INPATIENT PSYCHIATRY TEACHING PHYSICIAN INVOLVEMENT I saw and evaluated the patient with the above named resident/ See their note for details.. I reviewed the patient's history during the visit and I agree with the details as written. My exam confirms the resident's findings. The assessment and plan were formulated in discussion with me and I agree with them as documented. Additional comments: Recommend restarting methadone when able to confirm dose to mitigate risk of opioid withdrawal. No acute agitation noted on exam today. Rajinder Cruz MD 01/05/2024 5:24 PM * Plan of Care - Rashad Brenner RN - 01/04/2024 6:19 PM EDT Problem: Adult Inpatient Plan of Care Goal: Plan of Care Review Outcome: Ongoing (Interventions Implemented as Appropriate) Goal: Patient-Specific Goal (Individualized) Outcome: Ongoing (Interventions Implemented as Appropriate) Goal: Absence of Hospital-Acquired Illness or Injury Outcome: Ongoing (Interventions Implemented as Appropriate) Goal: Optimal Comfort and Wellbeing Outcome: Ongoing (Interventions Implemented as Appropriate) Goal: Readiness for Transition of Care Outcome: Ongoing (Interventions Implemented as Appropriate) Problem: Inability to Wean (Mechanical Ventilation, Invasive) Goal: Mechanical Ventilation Liberation Outcome: Ongoing (Interventions Implemented as Appropriate) Problem: Skin and Tissue Injury (Mechanical Ventilation, Invasive) Goal: Absence of Device-Related Skin and Tissue Injury Outcome: Ongoing (Interventions Implemented as Appropriate) Problem: Fall Injury Risk Goal: Absence of Fall and Fall-Related Injury Outcome: Ongoing (Interventions Implemented as Appropriate) Problem: Adjustment to Illness (Overdose) Goal: Optimal Coping Outcome: Ongoing (Interventions Implemented as Appropriate) Problem: Bleeding (Overdose) Goal: Absence of Bleeding Outcome: Ongoing (Interventions Implemented as Appropriate) Problem: Dysrhythmia (Overdose) Goal: Stable Heart Rate and Rhythm Outcome: Ongoing (Interventions Implemented as Appropriate) Problem: Fluid Imbalance (Overdose) Goal: Fluid Balance Outcome: Ongoing (Interventions Implemented as Appropriate) Problem: Hemodynamic Instability (Overdose) Goal: Effective Tissue Perfusion Outcome: Ongoing (Interventions Implemented as Appropriate) Problem: Neurologic Impairment (Overdose) Goal: Optimal Neurologic Function Outcome: Ongoing (Interventions Implemented as Appropriate) Problem: Respiratory Compromise (Overdose) Goal: Effective Oxygenation and Ventilation Outcome: Ongoing (Interventions Implemented as Appropriate) * Consult Note - Danita Celestin MD - 01/04/2024 9:34 AM EDT Psychiatric Inpatient Consultation Follow Up Note Time of Consultation: 10:15am Reason for consultation: suicide attempt Information Sources: Patient. Electronic Medical Record. Chief Complaint (in patient's own words): Leave me alone. I'm going to go home. Interim History: Per chart review, Continued with episodes of bradycardia to 35, hypotension to 75/46 overnight. Extubated morning of 01/02. On interview: Patient irritable and unwilling to engage in most of the interview. States he took a lot of pillsin hopes of ending his life. Cannot confirm or deny whether this had been a planned act or an impulsive one, nor can he say whether he had had suicidal thoughts before. Denies history of suicide attempts or previous psych hospitalizations. Says current home meds include gabapentin 300mg tid and methadone 120mg qd. Does not describe a particular trigger for suicide attempt, only that he had had enough and was done with it all. Denies access to guns at home and says if he had had a gun he wouldhave used it to blow [his] head off. Does not respond when asked if he is glad or regretful that he did not complete suicide. Refuses offer of voluntary inpatient psychiatric admission. Says he plans to go home and doesn't need inpatient admission. Unwilling to engage in safety planning. Tries toget out of bed to leave and starts to pull off EKG leads and to pull at IV lines. Says he is a [place] resident and can't be kept against his will. Security called and attempted verbal de-escalation. IEA process explained to the patient who statedhe just wanted to be left alone and did not have questions. Independent Collateral: none Review of Systems: Psychiatric: See above Physical Exam: Last value Range last 24 hrs Temperature Temp: 37.3 ??C (99.1 ??F) Temp: [36.6 ??C (97.9 ??F)-38.1 ??C (100.6 ??F)] Heart Rate Heart Rate: (!) 40 Heart Rate: [34-61] Blood Pressure BP: 103/58 BP: (75-110)/(39-72) Respiratory Rate Resp: 18 Resp: [12-34] SpO2 SpO2: 96 % SpO2: [90 %-98 %] Mental Status Examination: Musculoskeletal System: Muscle Strength/Tone (note atrophy, abnormal movements): no abnormal movements Gait and Station: not observed, patient lying in bed Psychiatric: Appearance: middle-aged male, in no acute distress, lying in bed on telemetry monitoring Behavior: initially calm, although unengaged; became progressively irritable and hostile. Later tried to pull off EKG leads and to yank on IV line Speech: poverty, normal volume Language: fluent in Vietnamese Mood: leave me alone. I'm going to leave Affect: irritable, hostile, mood-congruent Thought Process: concrete Associations: intact Thought Content: perseverates on going home; unable to answer questions about safety, current SI orHI. Perception: not observed responding to internal stimuli Orientation: grossly intact by interview Attention/Concentration: able to attend interview Cognition: grossly intact by interview Memory: recent and remote memory grossly intact Fund of Knowledge: appropriate for age and level of functioning Insight: poor Judgment: poor Pertinent Diagnostic Testing (include your own review/interpretation of results): Last 3 wbc, hgb, hct plt Recent Labs 01/04/24 02101/03/24 0130 WBC 7.5 8.8 HGB 11.4* 12.2* HCT 34.9* 35.7* PLATELET 133* 158 Last 3 Lytes Recent Labs 01/04/24 02101/03/24 013 NA 140 142 K 3.4* 3.9 CL 104 104 CO2 27 27 BUN 18 18 CREATININE 0.90 0.90 Last 3 LFTs Recent Labs 01/03/24 0130 AST 27 ALT 22 ALKPHOS 64 BILITOT 0.9 Last Ca, Mg, Phos Recent Labs 01/04/24 0219 CALCIUM 8.4* PHOS 3.7 MAGNESIUM 0.83 External Record Review (include your own review of external notes from any unique sources): Assessment: Jorge is a 43-year-old male with a history of polysubstance use disorder on methadone, also a charted history of ADHD and MDD who presented as a transfer from [facility] for acute toxic encephalopathy and bradycardia in the setting of suspected intentional overdose. His landlord reportedly found him withAMS and he was found to be bradycardic. On initial ED presentation, UDS was positive for cocaine, cannabis, fentanyl, tricyclics, and methadone. He had guanfacine, hydroxyzine, and gabapentin in his pocket. He was intubated at outside hospital ED and transferred to [facility]. Extubated on 01/02. Per initial assessment: Overall assessment was limited secondary to patient's mental status which could be combination of the encephalopathy from his overdose and the effects of his sedation as he was recently extubated prior to interview. Overall however given his recent apparent suicide attempt by overdose HE CANNOT LEAVE AGAINST MEDICAL ADVICE and warrants 1:1 level observation. Whether this suicide attempt was the result of a major depressive episode is unclear at this time, however polysubstance use disorder may well have played a role as his urine drug screen was positive for multiple illicit substances. Will reevaluate tomorrow with the intention of further clarifying suicide risk and potentially consentingfor psychiatric inpatient admission. When patient's mental status allows, would also recommend further clarifying medication regimen as there appears to be a discrepancy between what is in his chart,what he overdosed on, and what he reports being prescribed. Would also recommend quetiapine 25 mg 3times daily as needed for agitation. 01/04/2024 Unwilling to engage in safety planning this morning and became increasingly hostile on interview, eventually trying to pull off EKG leads and IV line to get out of bed and leave. Refuses offer of voluntary inpatient psychiatric admission and states he will leave to go home despite explanations thatthis is not possible until an adequate safety plan is reached which will likely need to include a psychiatric admission given his confirmation that overdose was a suicide attempt and ambivalence about still being alive. As he is refusing voluntary admission and is attempting to leave the hospital and go home without an adequate safety plan, we decided to pursue an IEA. This was discussed with thepatient. Security was present outside the room and entered to verbally de- escalate the patient whenhe began to pull off his EKG leads. IEA will be filed. Agitation recs below. Will need to continue 1:1 sitter. Diagnoses (chronic, acute, include progression/severity): Suicide attempt in the setting of polysubstance use and possible major depressive episode. 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 IEA: YES. Patient is on IEA and cannot leave AMA Recommendations were communicated to primary donor services team leader Johny Renee. Danita Celestin MD 01/04/2024 Coding Determination 1. Problems/Diagnosis (check one): High Minimal refers to a single minor problem. Example: Poor sleep due to noise in the hospital room. Low refers to two minor problems, or one stable/uncomplicated illness. Examples: Major depression in remission; adjustment disorder with depressed mood. Moderate refers to one illness with new onset, progression, exacerbation, complication, or side effects; or two stable problems. Examples: Recurrent major depression with exacerbation or progression or side effects of treatment; stable schizophrenia and alcohol use disorder; acute alcohol withdrawal; anorexia with systemic symptoms such as bradycardia. High refers to one chronic problem with severe progression, exacerbation, or side effects; or one problem with threat to life or bodily function. Examples: any psychiatric illness with suicidal or homicidal ideation or thoughts of self- harm; delirium; any eating disorder with severe medical consequences; major depression with significant functional decline; any severe side effects of psychiatric interventions (NMS, hyponatremia, lithium toxicity syndrome, etc); any psychiatric illness meeting the severe specifier. 2. Data Review/Analysis (check one): Moderate Low refers to (1) review of notes and test results or (2) assessment from a collateral source. Moderate requires one of the following: All three of the following: review of notes, review of test results, assessment from a collateral source. Discussion of test interpretation or management with an external physician/provider (primary team included). High requires both of the following (same options from Moderate above): All three of the following: review of notes, review of test results, assessment from a collateral source. Discussion of test interpretation or management with an external physician/provider (primary team included). 3. Patient Risk (check one): High Minimal refers to minimal risk from additional testing/treatment. Example: Bereavement. No medications recommended. Low refers to low risk from additional testing/treatment. Example: only interventions are minimallyinvasive or otherwise low risk (serum labs, melatonin, continuing an SSRI). Moderate refers to moderate risk from additional testing/treatment. Examples: starting prescriptionmedication with only moderate risk. Moderate also includes diagnosis or treatment significantly limited by social determinants of health such as food/housing insecurity, transportation issues, financial limitations, etc. High refers to high risk from additional testing/treatment. Examples: therapies requiring monitoring of serum level (lithium, valproate), medications with specific identified risks (QTc-prolonging medications in certain patients, SSRIs in patients with risk of bleeding). Discussions of higher levels of psychiatric intervention/care (1:1 sitter, voluntary psychiatric hospitalization, IEA, ECT). Patients who may require medical interventions against their wishes when they lack capacity to refuse those interventions; patients who lack capacity to choose to leave the hospital AMA. Discussion of high risk interventions that may be necessary to ensure safety (parenteral medications for managementof agitation; restraints; security presence). Risk of acute withdrawal. Complexity of MDM Determination: Choose the appropriate level in the first 3 columns based upon what you indicated above. Then 2 outof 3 elements must be met to qualify for the highest appropriate level of complexity. Problems/Diagnosis Data Review/Analysis Patient Risk Complexity of Medical Decision-Making CPT CODE [] Minimal/Low [] Low [] Minimal/Low [] Low 83834 [] Moderate [x] Moderate [] Moderate [] Moderate 24760 [x] High [] High [x] High [x] High 14765 Final Coding Determination: High Associated attestation - Soha Gil MD - 01/04/2024 1:14 PM EDT I saw and evaluated the patient and discussed the case described above with the resident within 24 hours. I reviewed the patient???s history during the visit Micheline agree with the details as written. My exam confirms the resident's findings. The assessment and plan were formulated in discussion with me and I agree with them as documented. * Plan of Care - Dk Abad RN - 01/04/2024 5:55 AM EDT Patient slept well most of this shift. Patient with bradycardia down to 37 off and on throughout this shift despite starting with a HR in the 60s. Problem: Adult Inpatient Plan of Care Goal: Absence of Hospital-Acquired Illness or Injury Outcome: Ongoing (Interventions Implemented as Appropriate) Goal: Optimal Comfort and Wellbeing Outcome: Ongoing (Interventions Implemented as Appropriate) Goal: Readiness for Transition of Care Outcome: Ongoing (Interventions Implemented as Appropriate) Problem: Communication Impairment (Mechanical Ventilation, Invasive) Goal: Effective Communication Outcome: Ongoing (Interventions Implemented as Appropriate) * Consult Note - Js Lagos MD - 01/03/2024 7:45 PM EDT Psychiatric Initial Inpatient Consultation Note Time of Consultation: 1500 Information Sources: Patient. Reason for consultation: I have been asked by attending physician Portillo Carrasco to see Akshat Quan for recommendations regarding the management of safety post suicide attempt by overdose and I have outlined my findings and recommendations in this report. Chief Complaint (in patient's own words): I took pills History of Present Illness: Jorge is a 43-year-old male with a history of polysubstance use disorder on methadone, also a charted history of ADHD and MDD who presented as a transfer from [facility] for acute toxic encephalopathy and bradycardia in the setting of suspected intentional overdose. His landlord reportedly found him withAMS and he was found to be bradycardic. On initial ED presentation, UDS was positive for cocaine, cannabis, fentanyl, tricyclics, and methadone. He had guanfacine, hydroxyzine, and gabapentin in his pocket. He was intubated at outside hospital ED and transferred to [facility]. Late this morning he was successfully extubated. On chart review, he is apparently on methadone 76 mg daily. He was previously admitted to [facility] in 2019 for encephalopathy and pneumonia and experienced agitation. Psychiatry was consulted and started Depakote. It is unclear whether the Depakote on his [employer] records is from this period of agitation or if it was related to a different diagnosis, as the patient was unable to clarify. Interview was limited as patient was still under the effects of his sedation though he could participate somewhat in interview. He repeatedly fell asleep, though was easy to awaken. When asked about the events leading up to his presentation he stated he took some pills. When asked about the events leading up to his overdose he stated everyone has lied to me my whole life, but declined to elaborate further. He did not point to any specific precipitating event. When asked whether his actions represented a suicide attempt he stated he was unsure. When asked whether he wanted to after ingesting the pills he again stated he was unsure. He denied current SI or HI. He noted he is on guanfacine for ADHD; when asked whether the other pills he took were prescribed to him he was unable to clarify (does have gabapentin in [employer], but no dispense date and was written in 2019; hydroxyzine does not appear on the list). When asked about past diagnoses, he stated everything and did not explain further. Patient stated initially that he wanted to leave but was ultimately redirectable. The remainder of the interview was deferred 2/2 somnolence. Psychiatric Review of Systems: Sustained Depressed Mood: Yes Sustained Elevated Mood: Unable to assess Sustained Irritable Mood: Unable to assess Flashbacks: Unable to assess Nightmares: Unable to assess Panic Attacks: Unable to assess Chronic Worry: Unable to assess Psychotic Symptoms: Unable to assess Obsessions/compulsions: Unable to assess Violence: Unable to assess Self Harm: Yes Past Psychiatric History: Diagnoses: Polysubstance use disorder MDD ADHD Current treatment: Guanfacine Gabapentin - no Past hospitalizations: As a teenager, unable to state why but per records it was for depression Suicide attempts: Current attempt, otherwise none known Past psychiatric medications Focalin for ADHD Suboxone for OUD Gabapentin for anxiety (unclear if this is a current med) Depakote for ?agitation (unclear if this is a current med) Guanfacine (unclear if this is a current med) Reportedly currently on methadone 76 mg daily - primary team reached out to methadone clinic Substance Use History/Treatment: Currently on methadone. Has been on Suboxone in the past. Has reportedly used alcohol, marijuana, tobacco, crack cocaine, and fentanyl. Problem List: Patient Active Problem List Diagnosis Code Depression F32.A ADHD (attention deficit hyperactivity disorder) F90.9 Active smoker F17.200 Herpes B00.9 AMS (altered mental status) R41.82 At risk for danger to others Z91.89 Agitation requiring sedation protocol R45.1 Pneumonia due to Streptococcus pneumoniae J13 Hypernatremia E87.0 Respiratory failure with hypoxia J96.91 Hyperactive behavior F90.9 DIFFICULT AIRWAY T88.4XXA Narrowing of airway J98.8 Toxic encephalopathy G92.9 Past Medical/Surgical History: Past Medical History: Diagnosis Date No known problems Past Surgical History: Procedure Laterality Date HERNIA REPAIR IMPLANT MESH HERNIA REPAIR/DEBRIDEMENT CLOSURE 12/05/2011 IMPLANT MESH FOR INCISIONAL OR VENTRAL HERNIA REPAIR performed by CARLOS ENRIQUE BECK III at [facility] OR REPAIR INCISIONAL HERNIA, REDUCIBLE 12/05/2011 REPAIR INITIAL INCISIONAL OR VENTRAL HERNIA REDUCIBLE performed by CARLOS ENRIQUE BECK III at [facility] OR Inpatient Medications: Current Facility-Administered Medications Medication Dose Route Frequency Provider Last Rate Last Admin enoxaparin (Lovenox) (40 mg/0.4 mL) subcutaneous injection 40 mg 40 mg Subcutaneous Nightly Catarino Benitez MD acetaminophen (Tylenol) tablet 975 mg 975 mg Oral Q8H Catarino Esteves MD Or acetaminophen (Tylenol) (32.02 mg/mL) oral liquid 1,000 mg 1,000 mg Oral Q8H Catarino Esteves MD 1,000 mg at 01/03/24 1446 Or acetaminophen (Tylenol) suppository 650 mg 650 mg Rectal Q8H MARIBELL Catarino Benitez MD fentaNYL (PF) (50 mcg/mL) infusion syringe 50 mL 0-400 mcg/hr Intravenous Continuous Catarino Benitez MD Held at 01/03/24 0215 And fentaNYL (50 mcg/mL) bolus from infusion 25-200 mcg 25-200 mcg Intravenous Q15 Min PRN Catarino Benitez MD And fentaNYL shift total and Settings verification 1 each Intravenous 2 Times Daily - Shift Total Catarino Benitez MD propofoL (Diprivan) (10 mg/mL) infusion 0-50 mcg/kg/min Intravenous Continuous Catarino Benitez MD Paused at 01/03/24 1152 And propofoL (Diprivan) (10 mg/mL) bolus from infusion 10 mg 10 mg Intravenous Q10 Min PRN Catarino Benitez MD 10 mg at 01/03/24 0757 thiamine (Vitamin B-1) 500 mg in sodium chloride 0.9% 55 mL infusion 500 mg Intravenous Daily Catarino Benitez MD Stopped at 01/03/24 0242 atropine (0.1 mg/mL) injection 1 mg 1 mg Intravenous Once PRN Catarino Benitez MD racepinephrine (Vaponefrin) 2.25 % nebulizer solution QUEtiapine (SEROquel) tablet 25 mg 25 mg Oral TID PRN Dutch Meier MD lactated Ringers 500 mL IV bolus Intravenous Once Dutch Meier MD Social History: Was found to have overdosed by his landlord - states he lives alone. Reportedly on methadone, unsure of methadone clinic. Family Medical/Psychiatric History: Patient stated probably but was not aware of specific diagnoses. Physical Exam: Last value Range last 24 hrs Temperature Temp: 37.6 ??C (99.7 ??F) Temp: [36 ??C (96.8 ??F)-37.6 ??C (99.7 ??F)] Heart Rate Heart Rate: (!) 46 Heart Rate: [35-58] Blood Pressure BP: 104/64 BP: (98-129)/(60-90) Respiratory Rate Resp: 24 Resp: [11-30] SpO2 SpO2: 95 % SpO2: [93 %-100 %] Mental Status Examination: Musculoskeletal System: Muscle Strength/Tone (note atrophy, abnormal movements): Dysarthric; no abnormal involuntary movements Gait and Station: Unable to assess 2/2 medical status Psychiatric: Appearance: age appropriate and in ICU bed Behavior: good eye contact and continuously falling asleep Speech: dysarthric, decreased rate Language: occasional word-finding difficulty Mood: Fine Affect: somnolent, incongruent with stated mood Thought Process: linear Associations: intact Thought Content: denied SI (though recent attempt), denied HI Perception: denied auditory hallucinations denied visual hallucinations Orientation: person, month of year, and year Attention/Concentration: Poor Cognition: somewhat impaired Memory: recent and remote memory grossly intact Fund of Knowledge: appropriate for age and level of functioning Insight: poor Judgment: poor Pertinent Diagnostic Testing (include your own review/interpretation of results): Last 3 Lytes Recent Labs 01/03/24 013 NA 142 K 3.9 CL 104 CO2 27 BUN 18 CREATININE 0.90 Last 3 LFTs Recent Labs 01/03/24 013 AST 27 ALT 22 ALKPHOS 64 BILITOT 0.9 Last 3 TFT Recent Labs 01/03/24 0130 TSH 0.67 Last CRP, SEDRATENo results for input(s): CRP, SEDRATE in the last 7068 hours. Last 3 CBC Recent Labs 01/03/24 0130 WBC 8.8 External Record Review (include your own review of external notes from any unique sources): [facility] 2019[facility] Assessment: Overall assessment was limited secondary to patient's mental status which could be combination of the encephalopathy from his overdose and the effects of his sedation as he was recently extubated prior to interview. Overall however given his recent apparent suicide attempt by overdose HE CANNOT LEAVE AGAINST MEDICAL ADVICE and warrants 1:1 level observation. Whether this suicide attempt was the result of a major depressive episode is unclear at this time, however polysubstance use disorder may well have played a role as his urine drug screen was positive for multiple illicit substances. Will reevaluate tomorrow with the intention of further clarifying suicide risk and potentially consentingfor psychiatric inpatient admission. When patient's mental status allows, would also recommend further clarifying medication regimen as there appears to be a discrepancy between what is in his chart,what he overdosed on, and what he reports being prescribed. Would also recommend quetiapine 25 mg 3times daily as needed for agitation. Diagnoses (chronic, acute, include progression/severity): Suicide attempt in the setting of polysubstance use and possible major depressive episode. Plan/Recommendations: #Suicide attempt by overdose (suspect guanfacine, gabapentin, hydroxyzine) #Acute toxic encephalopathy - improving #History of MDD #History of ADHD -Patient requires 1:1 observation -Patient cannot leave AMA -Patient requires reassessment to evaluate suicide risk and clarify home medication regimen -quetiapine Patient on IEA Status? IEA: NO, patient is not an on IEA. Awaiting voluntary psychiatric placement but safety concerns exist if patient decides to leave and will require urgent psychiatric assessmentprior to discharge or leaving AMA. Recommendations were communicated to primary donor services team leader Dutch Meier MD. Js Lagos MD 01/03/2024 Coding Determination 1. Problems/Diagnosis (check one): High Minimal refers to a single minor problem. Example: Poor sleep due to noise in the hospital room. Low refers to two minor problems, or one stable/uncomplicated illness. Examples: Major depression in remission; adjustment disorder with depressed mood. Moderate refers to one illness with new onset, progression, exacerbation, complication, or side effects; or two stable problems. Examples: Recurrent major depression with exacerbation or progression or side effects of treatment; stable schizophrenia and alcohol use disorder; acute alcohol withdrawal; anorexia with systemic symptoms such as bradycardia. High refers to one chronic problem with severe progression, exacerbation, or side effects; or one problem with threat to life or bodily function. Examples: any psychiatric illness with suicidal or homicidal ideation or thoughts of self- harm; delirium; any eating disorder with severe medical consequences; major depression with significant functional decline; any severe side effects of psychiatric interventions (NMS, hyponatremia, lithium toxicity syndrome, etc); any psychiatric illness meeting the severe specifier. 2. Data Review/Analysis (check one): High Low refers to (1) review of notes and test results or (2) assessment from a collateral source. Moderate requires one of the following: All three of the following: review of notes, review of test results, assessment from a collateral source. Discussion of test interpretation or management with an external physician/provider (primary team included). High requires both of the following (same options from Moderate above): All three of the following: review of notes, review of test results, assessment from a collateral source. Discussion of test interpretation or management with an external physician/provider (primary team included). 3. Patient Risk (check one): High Minimal refers to minimal risk from additional testing/treatment. Example: Bereavement. No medications recommended. Low refers to low risk from additional testing/treatment. Example: only interventions are minimallyinvasive or otherwise low risk (serum labs, melatonin, continuing an SSRI). Moderate refers to moderate risk from additional testing/treatment. Examples: starting prescriptionmedication with only moderate risk. Moderate also includes diagnosis or treatment significantly limited by social determinants of health such as food/housing insecurity, transportation issues, financial limitations, etc. High refers to high risk from additional testing/treatment. Examples: therapies requiring monitoring of serum level (lithium, valproate), medications with specific identified risks (QTc-prolonging medications in certain patients, SSRIs in patients with risk of bleeding). Discussions of higher levels of psychiatric intervention/care (1:1 sitter, voluntary psychiatric hospitalization, IEA, ECT). Patients who may require medical interventions against their wishes when they lack capacity to refuse those interventions; patients who lack capacity to choose to leave the hospital AMA. Discussion of high risk interventions that may be necessary to ensure safety (parenteral medications for managementof agitation; restraints; security presence). Risk of acute withdrawal. Complexity of MDM Determination: Choose the appropriate level in the first 3 columns based upon what you indicated above. Then 2 outof 3 elements must be met to qualify for the highest appropriate level of complexity. Problems/Diagnosis Data Review/Analysis Patient Risk Complexity of Medical Decision-Making CPT CODE [] Minimal - [] Minimal [] Straightforward 79743 [] Low [] Low [] Low [] Low 92152 [] Moderate [] Moderate [] Moderate [] Moderate 63071 [x] High [x] High [x] High [x] High 61819 Final Coding Determination: High Associated attestation - Soha Gil MD - 01/04/2024 1:13 PM EDT I saw and evaluated the patient and discussed the case described above with the resident within 24 hours. I reviewed the patient???s history during the visit Micheline agree with the details as written. My exam confirms the resident's findings. The assessment and plan were formulated in discussion with me and I agree with them as documented. Major issues addressed/discussed: 43 y.o. man with history of depression, ADHD, and substance use disorder admitted for bradycarida and acute toxic encephalopathy following intential suicide attempt by overdose. Pt declining inpatient admission and is unwilling to engage in safety or treatment planning. Pt with very high acute risk for suicide given near lethal attempt leading to this medical admission. Pt admitted today intentional ingestion of as many pills as he could take with intent to endhis life. Pursing IEA. * Plan of Care - Stuart Contreras RN - 01/03/2024 6:06 PM EDT Patient extubated around noon, tolerated well, patient drowsy post extubation. Patient seen by psychiatry, not cleared to leave. Patient attempted to leave towards end of shift, however situation wasde-escalated with a regular diet order. See flowsheets, providers note, and psychiatry note for further information. Problem: Adult Inpatient Plan of Care Goal: Plan of Care Review Outcome: Ongoing (Interventions Implemented as Appropriate) Goal: Patient-Specific Goal (Individualized) Outcome: Ongoing (Interventions Implemented as Appropriate) Goal: Absence of Hospital-Acquired Illness or Injury Outcome: Ongoing (Interventions Implemented as Appropriate) Goal: Optimal Comfort and Wellbeing Outcome: Ongoing (Interventions Implemented as Appropriate) Goal: Readiness for Transition of Care Outcome: Ongoing (Interventions Implemented as Appropriate) Problem: Restraint, Nonbehavioral (Nonviolent) Goal: Discontinuation Criteria Achieved Outcome: Ongoing (Interventions Implemented as Appropriate) Problem: Communication Impairment (Mechanical Ventilation, Invasive) Goal: Effective Communication Outcome: Ongoing (Interventions Implemented as Appropriate) Problem: Device-Related Complication Risk (Mechanical Ventilation, Invasive) Goal: Optimal Device Function Outcome: Ongoing (Interventions Implemented as Appropriate) Problem: Inability to Wean (Mechanical Ventilation, Invasive) Goal: Mechanical Ventilation Liberation Outcome: Ongoing (Interventions Implemented as Appropriate) Problem: Nutrition Impairment (Mechanical Ventilation, Invasive) Goal: Optimal Nutrition Delivery Outcome: Ongoing (Interventions Implemented as Appropriate) Problem: Skin and Tissue Injury (Mechanical Ventilation, Invasive) Goal: Absence of Device-Related Skin and Tissue Injury Outcome: Ongoing (Interventions Implemented as Appropriate) Problem: Ventilator-Induced Lung Injury (Mechanical Ventilation, Invasive) Goal: Absence of Ventilator-Induced Lung Injury Outcome: Ongoing (Interventions Implemented as Appropriate) Problem: Fall Injury Risk Goal: Absence of Fall and Fall-Related Injury Outcome: Ongoing (Interventions Implemented as Appropriate) Problem: Adjustment to Illness (Overdose) Goal: Optimal Coping Outcome: Ongoing (Interventions Implemented as Appropriate) Problem: Bleeding (Overdose) Goal: Absence of Bleeding Outcome: Ongoing (Interventions Implemented as Appropriate) Problem: Dysrhythmia (Overdose) Goal: Stable Heart Rate and Rhythm Outcome: Ongoing (Interventions Implemented as Appropriate) Problem: Fluid Imbalance (Overdose) Goal: Fluid Balance Outcome: Ongoing (Interventions Implemented as Appropriate) Problem: Hemodynamic Instability (Overdose) Goal: Effective Tissue Perfusion Outcome: Ongoing (Interventions Implemented as Appropriate) Problem: Neurologic Impairment (Overdose) Goal: Optimal Neurologic Function Outcome: Ongoing (Interventions Implemented as Appropriate) Problem: Respiratory Compromise (Overdose) Goal: Effective Oxygenation and Ventilation Outcome: Ongoing (Interventions Implemented as Appropriate) * Plan of Care - Tonja Ferrari RN - 01/03/2024 6:00 AM EDT CARE PLAN GOAL OUTCOME EVALUATION: Problem: Adult Inpatient Plan of Care Goal: Plan of Care Review Outcome: Ongoing (Interventions Implemented as Appropriate) Goal: Patient-Specific Goal (Individualized) Outcome: Ongoing (Interventions Implemented as Appropriate) Goal: Absence of Hospital-Acquired Illness or Injury Outcome: Ongoing (Interventions Implemented as Appropriate) Goal: Optimal Comfort and Wellbeing Outcome: Ongoing (Interventions Implemented as Appropriate) Goal: Readiness for Transition of Care Outcome: Ongoing (Interventions Implemented as Appropriate) Problem: Restraint, Nonbehavioral (Nonviolent) Goal: Discontinuation Criteria Achieved Outcome: Ongoing (Interventions Implemented as Appropriate) Problem: Communication Impairment (Mechanical Ventilation, Invasive) Goal: Effective Communication Outcome: Ongoing (Interventions Implemented as Appropriate) Problem: Device-Related Complication Risk (Mechanical Ventilation, Invasive) Goal: Optimal Device Function Outcome: Ongoing (Interventions Implemented as Appropriate) Problem: Inability to Wean (Mechanical Ventilation, Invasive) Goal: Mechanical Ventilation Liberation Outcome: Ongoing (Interventions Implemented as Appropriate) Problem: Nutrition Impairment (Mechanical Ventilation, Invasive) Goal: Optimal Nutrition Delivery Outcome: Ongoing (Interventions Implemented as Appropriate) Problem: Skin and Tissue Injury (Mechanical Ventilation, Invasive) Goal: Absence of Device-Related Skin and Tissue Injury Outcome: Ongoing (Interventions Implemented as Appropriate) Problem: Ventilator-Induced Lung Injury (Mechanical Ventilation, Invasive) Goal: Absence of Ventilator-Induced Lung Injury Outcome: Ongoing (Interventions Implemented as Appropriate) Problem: Fall Injury Risk Goal: Absence of Fall and Fall-Related Injury Outcome: Ongoing (Interventions Implemented as Appropriate) Problem: Adjustment to Illness (Overdose) Goal: Optimal Coping Outcome: Ongoing (Interventions Implemented as Appropriate) Problem: Bleeding (Overdose) Goal: Absence of Bleeding Outcome: Ongoing (Interventions Implemented as Appropriate) Problem: Dysrhythmia (Overdose) Goal: Stable Heart Rate and Rhythm Outcome: Ongoing (Interventions Implemented as Appropriate) Problem: Fluid Imbalance (Overdose) Goal: Fluid Balance Outcome: Ongoing (Interventions Implemented as Appropriate) Problem: Hemodynamic Instability (Overdose) Goal: Effective Tissue Perfusion Outcome: Ongoing (Interventions Implemented as Appropriate) Problem: Neurologic Impairment (Overdose) Goal: Optimal Neurologic Function Outcome: Ongoing (Interventions Implemented as Appropriate) Problem: Respiratory Compromise (Overdose) Goal: Effective Oxygenation and Ventilation Outcome: Ongoing (Interventions Implemented as Appropriate) documented in this encounter Plan of Treatment Scheduled Orders Name Type Priority Associated Diagnoses Orde r Schedule EKG 12 Lead ECG Routine Screening for cardiovascular condition One Time for 1 Occurrences starting 01/06/2024 until 01/06/2024 documented as of this encounter Procedures Procedure Name Priority Date/Time Associated Diagnosis Comments RAPID COVID-19 PCR ([facility]) Routine 01/09/2024 11:34 AM EDT HEMOGRAM Routine 01/09/2024 5:45 AM EDT DIFFERENTIAL, AUTOMATED Routine 01/09/2024 5:45 AM EDT CBC (WITH DIFF) Routine 01/09/2024 5:45 AM EDT PHOSPHORUS Routine 01/09/2024 5:45 AM EDT MAGNESIUM Routine 01/09/2024 5:45 AM EDT BASIC METABOLIC PANEL Routine 01/09/2024 5:45 AM EDT HEMOGRAM Routine 01/08/2024 5:40 AM EDT DIFFERENTIAL, AUTOMATED Routine 01/08/2024 5:40 AM EDT CBC (WITH DIFF) Routine 01/08/2024 5:40 AM EDT PHOSPHORUS Routine 01/08/2024 5:40 AM EDT MAGNESIUM Routine 01/08/2024 5:40 AM EDT BASIC METABOLIC PANEL Routine 01/08/2024 5:40 AM EDT EKG 12-LEAD STAT 01/07/2024 12:58 PM EDT Bradycardia HEMOGRAM Routine 01/07/2024 7:02 AM EDT DIFFERENTIAL, AUTOMATED Routine 01/07/2024 7:02 AM EDT CBC (WITH DIFF) Routine 01/07/2024 7:02 AM EDT PHOSPHORUS Routine 01/07/2024 7:02 AM EDT MAGNESIUM Routine 01/07/2024 7:02 AM EDT BASIC METABOLIC PANEL Routine 01/07/2024 7:02 AM EDT HEMOGRAM Routine 01/06/2024 6:10 AM EDT DIFFERENTIAL, AUTOMATED Routine 01/06/2024 6:10 AM EDT CBC (WITH DIFF) Routine 01/06/2024 6:10 AM EDT PHOSPHORUS Routine 01/06/2024 6:10 AM EDT MAGNESIUM Routine 01/06/2024 6:10 AM EDT BASIC METABOLIC PANEL Routine 01/06/2024 6:10 AM EDT HEMOGRAM Routine 01/05/2024 4:20 AM EDT DIFFERENTIAL, AUTOMATED Routine 01/05/2024 4:20 AM EDT CBC (WITH DIFF) Routine 01/05/2024 4:19 AM EDT PHOSPHORUS Routine 01/05/2024 4:19 AM EDT MAGNESIUM Routine 01/05/2024 4:19 AM EDT BASIC METABOLIC PANEL Routine 01/05/2024 4:19 AM EDT XR CHEST ONE VIEW Routine 01/04/2024 5:2 2 PM EDT EKG 12-LEAD Routine 01/04/2024 1:19 PM EDT Bradycardia CBC (WITH DIFF) Routine 01/04/2024 2:19 AM EDT PHOSPHORUS Routine 01/04/2024 2:19 AM EDT MAGNESIUM Routine 01/04/2024 2:19 AM EDT BASIC METABOLIC PANEL Routine 01/04/2024 2:19 AM EDT HEMOGRAM Routine 01/04/2024 2:17 AM EDT DIFFERENTIAL, AUTOMATED Routine 01/04/2024 2:17 AM EDT EXTUBATE Routine 01/03/2024 12:28 PM EDT PHOSPHORUS Routine 01/03/2024 8:45 AM EDT XR CHEST ONE VIEW Routine 01/03/2024 3:2 9 AM EDT XR ABDOMEN 1 VIEW Routine 01/03/2024 3:2 9 AM EDT URINALYSIS WITH REFLEX CULTURE Routine 01/03/2024 1:35 AM EDT OPIOIDS CONFIRMATION PANEL, URINE (HASLET) Routine 01/03/2024 1:34 AM EDT U TRICYCLICS CONFIRMATION Routine 01/03/2024 1:34 AM EDT RAPID DRUG SCREEN, URINE Routine 01/03/2024 1:34 AM EDT RAPID DRUG SCREEN W/ CONFIRMATION, URINE Routine 01/03/2024 1:34 AM EDT THC (MARIJUANA), URINE, CONFIRMATION Routine 01/03/2024 1:34 AM EDT CMP W/FASTING GLUCOSE STAT 01/03/2024 1:30 AM EDT HEMOGRAM STAT 01/03/2024 1:30 AM EDT DIFFERENTIAL, AUTOMATED STAT 01/03/2024 1:30 AM EDT CBC (WITH DIFF) STAT 01/03/2024 1:30 AM EDT TSH Routine 01/03/2024 1:30 AM EDT PHOSPHORUS STAT 01/03/2024 1:30 AM EDT MAGNESIUM STAT 01/03/2024 1:30 AM EDT LITHIUM LEVEL Routine 01/03/2024 1:30 AM EDT VALPROIC ACID LEVEL, TOTAL Routine 01/03/2024 1:30 AM EDT DIGOXIN LEVEL Routine 01/03/2024 1:30 AM EDT BLOOD GAS VENOUS POC Routine 01/03/2024 1:25 AM EDT EKG 12-LEAD STAT 01/03/2024 1:24 AM EDT Bradycardia POCT GLUCOSE Routine 01/03/2024 1:24 AM EDT documented in this encounter Results * COVID-19 PCR (01/09/2024 11:34 AM EDT) SARS-CoV-2 RNA (Rapid) Not Detected Not Detected [facility] Comment: This result should be interpreted in combination with the clinical observations, patient history and epidemiological information. For testing of asymptomatic individuals, assay performance characteristics and clinical utility have not been evaluated. Testing for SARS-CoV-2 (Severe acute respiratory syndrome coronavirus 2, formerly known as 2019 novel coronavirus or 2019-nCoV) to aid in the diagnosis of COVID-19 is performed using the Simplexa COVID-19 Direct Assay by [employer] as authorized by the FDA issued Emergency Use Authorization (EUA). This assay is intended for In-vitro Diagnostic (IVD) use with nasopharyngeal swabs collected from individuals meeting the CDC criteria for testing. The assay is performed based on the instructions for use and additional guidance provided by the FDA. Testing is performed in the Microbiology Laboratory within the Department of Pathology and Laboratory Medicine at [facility], certified under the Clinical Laboratory Improvement Amendments of 1988 (CLIA), 42 U.S.C. section 263a, to perform high complexity tests. Assay performance has been verified according to clinical laboratory regulatory requirements. Test results are provided above. A result of Not Detected indicates that the viral RNA target is not present but does not preclude SARS-CoV-2 infection. False negative results may occur if a specimen is improperly collected, transported or handled; if amplification inhibitors are present; or if inadequate numbers of viral particles are present in the specimen. A result of Detected suggests a current or recent infection and the patient is presumed to be infected. Positive and negative predictive values for this test are highly dependent on disease prevalence. A result of Invalid indicates the inability to conclusively determine the presence or absence of SARS-CoV-2 RNA in the sample which can be due to a variety of factors. Recollection is recommended in the case of an invalid result. CDC COVID-19 criteria for testing on human specimens and clinical management guidance information are available at the CDC Coronavirus Disease 2019 (COVID-19) webpage under Information for Healthcare Professionals (https://www.cdc.gov/coronavirus/2019-ncov/hcp/index.html). Additional information about this and other EUA tests can be found in provider and patient fact sheets at the following FDA website: https://www.fda.gov/medical-devices/bircnxsdkux-poxezlm-2545-qucnq-25-podhcdpxr- use-a qgovzgwfhtxwv-zhykufm-oliewtv/vgmwz-iosyxfvcxcm-fzzw SARS-CoV-2 Source BAIL ATT[employer]ER Swab [place] MP [facility] Nasopharyngeal Swab 01/09/20 11:34 AM EDT 01/09/2024 12:33 PM EDT Comment:Specimen Source->Kwame opharyngeal Swab Narrative Resulting Agency Comment Spec In Lab Eliud Perez APRN MICROBIOLOGY - NERAL ORDERABLES [facility] [place] [address] * (ABNORMAL) Differential, Automated (01/09/2024 5:45 AM EDT) Neutrophil % 58.7 % [facility] Neutrophil Absolute 4.63 1.70 - 6.10 x10(3)/mc L [facility] Lymph % 24.4 % [facility] Lymphocytes Abs 1.9 0.9 - 3.2 x10(3)/mc L [facility] Monocyte % 11.2 % [facility] Monocyte Abs 0.9 0.3 - 0.9 x10(3)/mc L [facility] Eos % 3.2 % [facility] Eosinophils Abs 0.2 0.0 - 0.4 x10(3)/mc L [facility] Basophil % 1.0 % [facility] Baso Absolute 0.1 0.0 - 0.1 x10(3)/mc L [facility] Immature Gran % 1.50 % [facility] Comment: Immature granulocytes(IG's)percentage and absolute count will include metamyelocytes, myelocytes, and promyelocytes. Blood smears from CBCs yielding IG's will be scanned manually for concordance. If this scan disagrees with the automated IG or if promyelocytes are noted, a manual differential will be performed. Immature Gran Absolute 0.12(H) 0.00 - 0.04 x10(3)/ L [facility] Blood 01/09/2024 5:45 AM EDT 01/09/2024 6:03 AM EDT Narrative Resulting Agency Comment Spec In Lab Johny Renee MD HEMATOLOGY ORDERABLE S Performing Organization Address City/State/[facility] Co de Phone Number [facility] [place] [address] * Hemogram (01/09/2024 5:45 AM EDT) White Blood Cell 7.9 4.0 - 9.5 x10(3)/[facility] Red Blood Cell 5.18 4.58 - 5.54 x10(6)/[facility] Hemoglobin 14.5 13.7 - 16.5 g/dL [facility] Hematocrit 44.2 40.5 - 48.5 % [facility] Mean Cell Volume 85.3 82.9 - 93.1 fL [facility] Mean Cell Hemoglobin 28.0 27.5 - 32.1 pg [facility] Mean Cell Hemoglobin Concentration 32.8 32.0 - 35.7 g/dL [facility] Platelet 192 145 - 357 x10(3)/[facility] RDW Standard Deviation 38.6 36.0 - 45.0 fL [facility] RDW coefficient of variation 12.5 11.4 - 13.8 % [facility] Mean Platelet Volume 9.7 7.6 - 12.9 fL [facility] NRBC% auto 0.0 % [facility] NRBC Absolute 0.000 0.000 - 0.000 x10(3)/mcL [facility] Blood 01/09/2024 5:45 AM EDT 01/09/2024 6:03 AM EDT Narrative Resulting Agency Comment Spec In Lab Johny Renee MD HEMATOLOGY ORDERABLE S [facility] [place] [address] * (ABNORMAL) Basic Metabolic Panel (non-fasting) (01/09/2024 5:45 AM EDT) Glucose 115 65 - 199 mg/dL [facility] Comment:Diabetes: >=200 mg/d L plus symptoms Blood Urea Nitrogen 14 10 - 20 mg/dL [facility] Creatinine 0.78(L) 0.80 - 1.50 mg/dL [facility] Sodium 140 135 - 145 mmol/L [facility] Potassium 4.5 3.5 - 5.0 mmol/L [facility] Comment: Please note: ??Patients with WBC >100,000 may have falsely elevated Potassium levels. ??For accurate Potassium quantification in these patients send serum separator tube (gold top) for subsequent determinations. ??Contact the Clinical Chemistry Laboratory if there are any questions. Chloride 103 98 - 107 mmol/L [facility] Carbon Dioxide 29 22 - 31 mmol/L [facility] Anion Gap 8 5 - 15 mmol/L [facility] Calcium 9.3 8.5 - 10.5 mg/dL [facility] Est Glomerular Filtration Rate 113 >=60 mL/min/1. 73 m?? [facility] Comment: This patient's estimated GFR was calculated using the 2020 CKD-EPI equation. The estimated GFR can vary from the measured GFR by up to 30% in the absence of rapidly changing kidney function. Assessment of the estimated GFR is not appropriate when creatinine concentrations are rapidly changing. For clinical situations in which a more precise estimate of GFR is necessary, consider alternative methods of GFR estimation such as a 24-hour urine creatinine clearance. Assignment of CKD stage 1-5 for patients with an eGFR near the transition point between stages may be based on clinical assessment of muscle mass and symptoms in addition to eGFR. Blood 01/09/2024 5:45 AM EDT 01/09/2024 6:03 AM EDT Narrative Resulting Agency Comment Spec In Lab Damien Gonzalez MD CHEMISTRY ORDERABLES Performing Organization Address City/[facility] [address]/ZIP Co de Phone Number [facility] [place] [address] * Magnesium (01/09/2024 5:45 AM EDT) Magnesium 0.92 0.69 - 1.07 mmol/L [facility] Blood 01/09/2024 5:45 AM EDT 01/09/2024 6:03 AM EDT Narrative Resulting Agency Comment Spec In Lab Damien Gonzalez MD CHEMISTRY ORDERABLES Performing Organization Address City/[facility] [address]/ZIP Co de Phone Number [facility] [place] [address] * Phosphorus (01/09/2024 5:45 AM EDT) Phosphorus 3.7 2.5 - 4.5 mg/dL [facility] Blood 01/09/2024 5:45 AM EDT 01/09/2024 6:03 AM EDT Narrative Resulting Agency Comment Spec In Lab Damien Gonzalez MD CHEMISTRY ORDERABLES Performing Organization Address City/[facility] [address]/ZIP Co de Phone Number [facility] [place] [address] * Differential, Automated (01/08/2024 5:40 AM EDT) Neutrophil % 59.1 % [facility] Neutrophil Absolute 3.88 1.70 - 6.10 x10(3)/[facility] Lymph % 23.4 % [facility] Lymphocytes Abs 1.5 0.9 - 3.2 x10(3)/[facility] Monocyte % 12.0 % [facility] Monocyte Abs 0.8 0.3 - 0.9 x10(3)/[facility] Eos % 4.1 % [facility] Eosinophils Abs 0.3 0.0 - 0.4 x10(3)/[facility] Basophil % 0.8 % [facility] Baso Absolute 0.0 0.0 - 0.1 x10(3)/[facility] Immature Gran % 0.60 % [facility] Comment: Immature granulocytes(IG's)percentage and absolute count will include metamyelocytes, myelocytes, and promyelocytes. Blood smears from CBCs yielding IG's will be scanned manually for concordance. If this scan disagrees with the automated IG or if promyelocytes are noted, a manual differential will be performed. Immature Gran Absolute 0.04 0.00 - 0.04 x10(3)/[facility] Blood 01/08/2024 5:40 AM EDT 01/08/2024 5:47 AM EDT Narrative Resulting Agency Comment Spec In Lab Johny Renee MD HEMATOLOGY ORDERABLE S [facility] [place] [address] * Hemogram (01/08/2024 5:40 AM EDT) White Blood Cell 6.6 4.0 - 9.5 x10(3)/[facility] Red Blood Cell 5.02 4.58 - 5.54 x10(6)/[facility] Hemoglobin 14.0 13.7 - 16.5 g/dL [facility] Hematocrit 42.5 40.5 - 48.5 % [facility] Mean Cell Volume 84.7 82.9 - 93.1 fL [facility] Mean Cell Hemoglobin 27.9 27.5 - 32.1 pg [facility] Mean Cell Hemoglobin Concentration 32.9 32.0 - 35.7 g/dL [facility] Platelet 173 145 - 357 x10(3)/[facility] RDW Standard Deviation 38.6 36.0 - 45.0 [facility] RDW coefficient of variation 12.6 11.4 - 13.8 % [facility] Mean Platelet Volume 9.9 7.6 - 12.9 [facility] NRBC% auto 0.0 % [facility] NRBC Absolute 0.000 0.000 - 0.000 x10(3)/[facility] Blood 01/08/2024 5:40 AM EDT 01/08/2024 5:47 AM EDT Narrative Resulting Agency Comment Spec In Lab Johny Renee MD HEMATOLOGY ORDERABLE S [facility] [place] [address] * Basic Metabolic Panel (non-fasting) (01/08/2024 5:40 AM EDT) [facility] Glucose 95 65 - 199 mg/dL [facility] Comment:Diabetes: >=200 mg/d L plus symptoms Blood Urea Nitrogen 11 10 - 20 mg/dL [facility] Creatinine 0.81 0.80 - 1.50 mg/dL [facility] Sodium 140 135 - 145 mmol/L [facility] Potassium 4.2 3.5 - 5.0 mmol/L [facility] Comment: Please note: ??Patients with WBC >100,000 may have falsely elevated Potassium levels. ??For accurate Potassium quantification in these patients send serum separator tube (gold top) for subsequent determinations. ??Contact the Clinical Chemistry Laboratory if there are any questions. Chloride 103 98 - 107 mmol/L [facility] Carbon Dioxide 28 22 - 31 mmol/L [facility] Anion Gap 9 5 - 15 mmol/L [facility] Calcium 8.8 8.5 - 10.5 mg/dL [facility] Est Glomerular Filtration Rate 111 >=60 mL/min/1. 73 m?? [facility] Comment: This patient's estimated GFR was calculated using the 2020 CKD-EPI equation. The estimated GFR can vary from the measured GFR by up to 30% in the absence of rapidly changing kidney function. Assessment of the estimated GFR is not appropriate when creatinine concentrations are rapidly changing. For clinical situations in which a more precise estimate of GFR is necessary, consider alternative methods of GFR estimation such as a 24-hour urine creatinine clearance. Assignment of CKD stage 1-5 for patients with an eGFR near the transition point between stages may be based on clinical assessment of muscle mass and symptoms in addition to eGFR. Blood 01/08/2024 5:40 AM EDT 01/08/2024 5:47 AM EDT Narrative Resulting Agency Comment Spec In Lab Damien Gonzalez MD CHEMISTRY ORDERABLES Performing Organization Address [facility] [address]/[facility] de Phone Number [facility] [place] [address] * Magnesium (01/08/2024 5:40 AM EDT) Magnesium 0.86 0.69 - 1.07 mmol/L [facility] Blood 01/08/2024 5:40 AM EDT 01/08/2024 5:47 AM EDT Narrative Resulting Agency Comment Spec In Lab Damien Gonzalez MD CHEMISTRY ORDERABLES Performing Organization Address [facility] [address]/[facility] Co de Phone Number [facility] [place] [address] * Phosphorus (01/08/2024 5:40 AM EDT) Phosphorus 3.6 2.5 - 4.5 mg/dL [facility] Blood 01/08/2024 5:40 AM EDT 01/08/2024 5:47 AM EDT Narrative Resulting Agency Comment Spec In Lab Damien Gonzalez MD CHEMISTRY ORDERABLES Performing Organization Address [facility] [address]/[facility] Co de Phone Number [facility] [place] [address] * EKG 12 Lead (01/07/2024 12:58 PM EDT) Ventricular rate 50 BPM MUSE SYSTEM Atrial Rate 50 BPM MUSE SYSTEM P-R Interval 158 ms MUSE SYSTEM QRS Duration 98 ms MUSE SYSTEM Q-T Interval 436 ms MUSE SYSTEM QTC Calculated (Bezet) 397 ms MUSE SYSTEM Calculated P [place] 70 degrees MUSE SYSTEM Calculated R [place] 42 degrees MUSE SYSTEM Calculated T [place] 62 degrees MUSE SYSTEM INTERPRETATION Sinus bradycardia Otherwise normal ECG When compared with ECG of 04-JAN-2024 13:19, Nonspecific T wave abnormality no longer evident in Inferior leads T wave amplitude has increased in Anterolateral leads QT has shortened Confirmed by MD Yamileth, Sean ([id number]) on 01/07/2024 2:46:32 PM MUSE SYSTEM 01/07/2024 12:5 8 PM EDT 01/07/2024 2:46 PM EDT Olaf Tuttle MD ECG ORDERABLES Performing Organization Address [facility] [address]/[facility] Co de Phone Number MUSE SYSTEM * Differential, Automated (01/07/2024 7:02 AM EDT) Neutrophil % 71.6 % [facility] Neutrophil Absolute 6.08 1.70 - 6.10 x10(3)/[facility] Lymph % 15.4 % [facility] Lymphocytes Abs 1.3 0.9 - 3.2 x10(3)/[facility] Monocyte % 9.6 % [facility] Monocyte Abs 0.8 0.3 - 0.9 x10(3)/[facility] Eos % 2.6 % [facility] Eosinophils Abs 0.2 0.0 - 0.4 x10(3)/[facility] Basophil % 0.6 % [facility] Baso Absolute 0.0 0.0 - 0.1 x10(3)/[facility] Immature Gran % 0.20 % [facility] Comment: Immature granulocytes(IG's)percentage and absolute count will include metamyelocytes, myelocytes, and promyelocytes. Blood smears from CBCs yielding IG's will be scanned manually for concordance. If this scan disagrees with the automated IG or if promyelocytes are noted, a manual differential will be performed. Immature Gran Absolute 0.02 0.00 - 0.04 x10(3)/[facility] Blood 01/07/2024 7:02 AM EDT 01/07/2024 7:54 AM EDT Narrative Resulting Agency Comment Spec In Lab Johny Renee MD HEMATOLOGY ORDERABLE S [facility] [place] [address] * (ABNORMAL) Hemogram (01/07/2024 7:02 AM EDT) White Blood Cell 8.5 4.0 - 9.5 x10(3)/ L [facility] Red Blood Cell 4.61 4.58 - 5.54 x10(6)/ L [facility] Hemoglobin 13.0(L) 13.7 - 16.5 g/dL [facility] Hematocrit 38.3(L) 40.5 - 48.5 % [facility] Mean Cell Volume 83.1 82.9 - 93.1 fL [facility] Mean Cell Hemoglobin 28.2 27.5 - 32.1 pg [facility] Mean Cell Hemoglobin Concentration 33.9 32.0 - 35.7 g/dL [facility] Platelet 155 145 - 357 x10(3)/mc L [facility] RDW Standard Deviation 37.7 36.0 - 45.0 fL [facility] RDW coefficient of variation 12.5 11.4 - 13.8 % [facility] Mean Platelet Volume 10.3 7.6 - 12.9 fL [facility] NRBC% auto 0.0 % [facility] NRBC Absolute 0.000 0.000 - 0.000 x10(3)/mc L [facility] Blood 01/07/2024 7:02 AM EDT 01/07/2024 7:54 AM EDT Narrative Resulting Agency Comment Spec In Lab Johny Renee MD HEMATOLOGY ORDERABLE S [facility] [place] [address] * Basic Metabolic Panel (non-fasting) (01/07/2024 7:02 AM EDT) Glucose 94 65 - 199 mg/dL [facility] Comment:Diabetes: >=200 mg/d L plus symptoms Blood Urea Nitrogen 11 10 - 20 mg/dL [facility] Creatinine 0.83 0.80 - 1.50 mg/dL [facility] Sodium 143 135 - 145 mmol/L [facility] Potassium 4.0 3.5 - 5.0 mmol/L [facility] Comment: Please note: ??Patients with WBC >100,000 may have falsely elevated Potassium levels. ??For accurate Potassium quantification in these patients send serum separator tube (gold top) for subsequent determinations. ??Contact the Clinical Chemistry Laboratory if there are any questions. Chloride 106 98 - 107 mmol/L [facility] Carbon Dioxide 27 22 - 31 mmol/L [facility] Anion Gap 10 5 - 15 mmol/L [facility] Calcium 8.8 8.5 - 10.5 mg/dL [facility] Est Glomerular Filtration Rate 111 >=60 mL/min/1. 73 m?? [facility] Comment: This patient's estimated GFR was calculated using the 2020 CKD-EPI equation. The estimated GFR can vary from the measured GFR by up to 30% in the absence of rapidly changing kidney function. Assessment of the estimated GFR is not appropriate when creatinine concentrations are rapidly changing. For clinical situations in which a more precise estimate of GFR is necessary, consider alternative methods of GFR estimation such as a 24-hour urine creatinine clearance. Assignment of CKD stage 1-5 for patients with an eGFR near the transition point between stages may be based on clinical assessment of muscle mass and symptoms in addition to eGFR. Blood 01/07/2024 7:02 AM EDT 01/07/2024 7:54 AM EDT Narrative Resulting Agency Comment Spec In Lab Damien Gonzalez MD CHEMISTRY ORDERABLES Performing Organization Address [facility] [address]/[facility] Co de Phone Number [facility] [place] [address] * Magnesium (01/07/2024 7:02 AM EDT) Magnesium 0.83 0.69 - 1.07 mmol/L [facility] Blood 01/07/2024 7:02 AM EDT 01/07/2024 7:54 AM EDT Narrative Resulting Agency Comment Spec In Lab Damien Gonzalez MD CHEMISTRY ORDERABLES Performing Organization Address City/[facility] [address]/[facility] Co de Phone Number [facility] [place] [address] * Phosphorus (01/07/2024 7:02 AM EDT) Phosphorus 3.0 2.5 - 4.5 mg/dL [facility] Blood 01/07/2024 7:02 AM EDT 01/07/2024 7:54 AM EDT Narrative Resulting Agency Comment Spec In Lab Damien Gonzalez MD CHEMISTRY ORDERABLES Performing Organization Address City/[facility] [address]/[facility] Co de Phone Number [place] [address] * Differential, Automated (01/06/2024 6:10 AM EDT) Neutrophil % 63.0 % [facility] Neutrophil Absolute 4.47 1.70 - 6.10 x10(3)/[facility] Lymph % 24.9 % [facility] Lymphocytes Abs 1.8 0.9 - 3.2 x10(3)/[facility] Monocyte % 8.5 % [facility] Monocyte Abs 0.6 0.3 - 0.9 x10(3)/[facility] Eos % 2.7 % [facility] [place] Eosinophils Abs 0.2 0.0 - 0.4 x10(3)/[facility] Basophil % 0.6 % [facility] Baso Absolute 0.0 0.0 - 0.1 x10(3)/[facility] Immature Gran % 0.30 % [facility] Comment: Immature granulocytes(IG's)percentage and absolute count will include metamyelocytes, myelocytes, and promyelocytes. Blood smears from CBCs yielding IG's will be scanned manually for concordance. If this scan disagrees with the automated IG or if promyelocytes are noted, a manual differential will be performed. Immature Gran Absolute 0.02 0.00 - 0.04 x10(3)/[facility] Blood 01/06/2024 6:10 AM EDT 01/06/2024 6:26 AM EDT Narrative Resulting Agency Comment Spec In Lab Johny Renee [place] [address] * (ABNORMAL) Hemogram (01/06/2024 6:10 AM EDT) Pathologist [facility] White Blood Cell 7.1 4.0 - 9.5 x10(3)/mc L [facility] Red Blood Cell 4.56(L) 4.58 - 5.54 x10(6)/ L [facility] Hemoglobin 12.9(L) 13.7 - 16.5 g/dL [facility] Hematocrit 38.9(L) 40.5 - 48.5 % [facility] Mean Cell Volume 85.3 82.9 - 93.1 fL [facility] Mean Cell Hemoglobin 28.3 27.5 - 32.1 pg [facility] Mean Cell Hemoglobin Concentration 33.2 32.0 - 35.7 g/dL [facility] Platelet 150 145 - 357 x10(3)/[facility] RDW Standard Deviation 39.7 36.0 - 45.0 [facility] RDW coefficient of variation 12.7 11.4 - 13.8 % [facility] Mean Platelet Volume 10.2 7.6 - 12.9 [facility] NRBC% auto 0.0 % [facility] NRBC Absolute 0.000 0.000 - 0.000 x10(3)/[facility] Blood 01/06/2024 6:10 AM EDT 01/06/2024 6:26 AM EDT Narrative Resulting Agency Comment Spec In Lab Johny Renee MD HEMATOLOGY ORDERABLE S [facility] [place] [address] * Basic Metabolic Panel (non-fasting) (01/06/2024 6:10 AM EDT) Glucose 100 65 - 199 mg/dL [facility] Comment:Diabetes: >=200 mg/d L plus symptoms Blood Urea Nitrogen 10 10 - 20 mg/dL [facility] Creatinine 0.85 0.80 - 1.50 mg/dL [facility] Sodium 140 135 - 145 mmol/L [facility] Potassium 3.8 3.5 - 5.0 mmol/L [facility] Comment: Please note: ??Patients with WBC >100,000 may have falsely elevated Potassium levels. ??For accurate Potassium quantification in these patients send serum separator tube (gold top) for subsequent determinations. ??Contact the Clinical Chemistry Laboratory if there are any questions. Chloride 107 98 - 107 mmol/L [facility] Carbon Dioxide 27 22 - 31 mmol/L [facility] Anion Gap 6 5 - 15 mmol/L [facility] Calcium 8.7 8.5 - 10.5 mg/dL [facility] Est Glomerular Filtration Rate 110 >=60 mL/min/1. 73 m?? [facility] Comment: This patient's estimated GFR was calculated using the 2020 CKD-EPI equation. The estimated GFR can vary from the measured GFR by up to 30% in the absence of rapidly changing kidney function. Assessment of the estimated GFR is not appropriate when creatinine concentrations are rapidly changing. For clinical situations in which a more precise estimate of GFR is necessary, consider alternative methods of GFR estimation such as a 24-hour urine creatinine clearance. Assignment of CKD stage 1-5 for patients with an eGFR near the transition point between stages may be based on clinical assessment of muscle mass and symptoms in addition to eGFR. Blood 01/06/2024 6:10 AM EDT 01/06/2024 6:26 AM EDT Narrative Resulting Agency Comment Spec In Lab Damien Gonzalez MD CHEMISTRY ORDERABLES [facility] [place] [address] * Magnesium (01/06/2024 6:10 AM EDT) Magnesium 0.83 0.69 - 1.07 mmol/L [facility] Blood 01/06/2024 6:10 AM EDT 01/06/2024 6:26 AM EDT Narrative Resulting Agency Comment Spec In Lab Damien Gonzalez MD CHEMISTRY ORDERABLES [facility] [place] [address] * Phosphorus (01/06/2024 6:10 AM EDT) Pathologist [facility] Phosphorus 3.3 2.5 - 4.5 mg/dL [facility] Blood 01/06/2024 6:10 AM EDT 01/06/2024 6:26 AM EDT Narrative Resulting Agency Comment Spec In Lab Damien Gonzalez MD CHEMISTRY ORDERABLES Performing Organization Address City/[facility] [address]/ZIP Co de Phone Number [facility] [place] [address] * Differential, Automated (01/05/2024 4:20 AM EDT) Pathologist [facility] Neutrophil % 70.2 % [facility] Neutrophil Absolute 6.04 1.70 - 6.10 x10(3)/[facility] Lymph % 20.5 % [facility] Lymphocytes Abs 1.8 0.9 - 3.2 x10(3)/[facility] Monocyte % 7.1 % [facility] Monocyte Abs 0.6 0.3 - 0.9 x10(3)/[facility] Eos % 1.5 % [facility] Eosinophils Abs 0.1 0.0 - 0.4 x10(3)/[facility] Basophil % 0.5 % [facility] Baso Absolute 0.0 0.0 - 0.1 x10(3)/[facility] Immature Gran % 0.20 % [facility] Comment: Immature granulocytes(IG's)percentage and absolute count will include metamyelocytes, myelocytes, and promyelocytes. Blood smears from CBCs yielding IG's will be scanned manually for concordance. If this scan disagrees with the automated IG or if promyelocytes are noted, a manual differential will be performed. Immature Gran Absolute 0.02 0.00 - 0.04 x10(3)/mcL [facility] Blood 01/05/2024 4:20 AM EDT 01/05/2024 4:27 AM EDT Narrative Resulting Agency Comment Spec In Lab Johny Renee MD HEMATOLOGY ORDERABLE S [facility] [place] [address] * (ABNORMAL) Hemogram (01/05/2024 4:20 AM EDT) White Blood Cell 8.6 4.0 - 9.5 x10(3)/ L [facility] Red Blood Cell 4.32(L) 4.58 - 5.54 x10(6)/ L [facility] Hemoglobin 12.2(L) 13.7 - 16.5 g/dL [facility] Hematocrit 36.4(L) 40.5 - 48.5 % [facility] Mean Cell Volume 84.3 82.9 - 93.1 [facility] Mean Cell Hemoglobin 28.2 27.5 - 32.1 pg [facility] Mean Cell Hemoglobin Concentration 33.5 32.0 - 35.7 g/dL [facility] Platelet 136(L) 145 - 357 x10(3)/[facility] RDW Standard Deviation 38.6 36.0 - 45.0 [facility] RDW coefficient of variation 12.7 11.4 - 13.8 % [facility] Mean Platelet Volume 10.0 7.6 - 12.9 [facility] NRBC% auto 0.0 % [facility] NRBC Absolute 0.000 0.000 - 0.000 x10(3)/ L [facility] Blood 01/05/2024 4:20 AM EDT 01/05/2024 4:27 AM EDT Narrative Resulting Agency Comment Spec In Lab Johny Renee MD HEMATOLOGY ORDERABLE S [facility] [place] [address] * (ABNORMAL) Basic Metabolic Panel (non-fasting) (01/05/2024 4:19 AM EDT) Glucose 125 65 - 199 mg/dL [facility] Comment:Diabetes: >=200 mg/d L plus symptoms Blood Urea Nitrogen 14 10 - 20 mg/dL [facility] Creatinine 0.90 0.80 - 1.50 mg/dL [facility] Sodium 140 135 - 145 mmol/L [facility] Potassium 3.7 3.5 - 5.0 mmol/L [facility] Comment: Please note: ??Patients with WBC >100,000 may have falsely elevated Potassium levels. ??For accurate Potassium quantification in these patients send serum separator tube (gold top) for subsequent determinations. ??Contact the Clinical Chemistry Laboratory if there are any questions. Chloride 107 98 - 107 mmol/L [facility] Carbon Dioxide 25 22 - 31 mmol/L [facility] Anion Gap 8 5 - 15 mmol/L [facility] Calcium 8.4(L) 8.5 - 10.5 mg/dL [facility] Est Glomerular Filtration Rate 108 >=60 mL/min/1. 73 m?? [facility] LABORATORY Comment: This patient's estimated GFR was calculated using the 2020 CKD-EPI equation. The estimated GFR can vary from the measured GFR by up to 30% in the absence of rapidly changing kidney function. Assessment of the estimated GFR is not appropriate when creatinine concentrations are rapidly changing. For clinical situations in which a more precise estimate of GFR is necessary, consider alternative methods of GFR estimation such as a 24-hour urine creatinine clearance. Assignment of CKD stage 1-5 for patients with an eGFR near the transition point between stages may be based on clinical assessment of muscle mass and symptoms in addition to eGFR. Blood 01/05/2024 4:19 AM EDT 01/05/2024 4:27 AM EDT Narrative Resulting Agency Comment Spec In Lab Damien Gonzalez MD CHEMISTRY ORDERABLES Performing Organization Address [facility] [address] [facility] Co de Phone Number [facility] [place] [address] * Magnesium (01/05/2024 4:19 AM EDT) Magnesium 0.74 0.69 - 1.07 mmol/L [facility] Blood 01/05/2024 4:19 AM EDT 01/05/2024 4:27 AM EDT Narrative Resulting Agency Comment Spec In Lab Damien Gonzalez MD CHEMISTRY ORDERABLES Performing Organization Address [facility] [address]/[facility] Co de Phone Number [facility] [place] [address] * Phosphorus (01/05/2024 4:19 AM EDT) Phosphorus 3.0 2.5 - 4.5 mg/dL [facility] Blood 01/05/2024 4:19 AM EDT 01/05/2024 4:27 AM EDT Narrative Resulting Agency Comment Spec In Lab Damien Gonzalez MD CHEMISTRY ORDERABLES Performing Organization Address [facility] [address]/[facility] Co de Phone Number [facility] [place] [address] * XR Chest One View (01/04/2024 5:22 PM EDT) WORKSTATION ID [id number] DH RAD Anatomical Region Laterality Modality Chest N/A Digital Radiogra phy Impressions 01/04/2024 6:07 PM EDT No aspiration. Thank you for letting us participate in the care of this patient. ??If you are a health care provider and have any questions regarding this report, please contact the number below. ??For patients who have questions please contact the health wound care rn that requested your imaging first. ? Narrative 01/04/2024 6:07 PM EDT EXAMINATION: XR CHEST ONE VIEW CLINICAL HISTORY: Cough post-extubation, evaluate if aspiration pneumonia TECHNIQUE: 1 view of the chest COMPARISON: January 03, 2024 FINDINGS: Enteric and endotracheal tubes withdrawn. No airspace consolidation. Platelike atelectasis left midlung. No pleural effusion. No pneumothorax. Cardiac and mediastinal and hilar contours are within normal limits. Procedure Note Jessica Chavez MD - 01/04/2024 EXAMINATION: XR CHEST ONE VIEW CLINICAL HISTORY: Cough post-extubation, evaluate if aspirationpneumonia TECHNIQUE: 1 view of the chest COMPARISON: January 03, 2024 FINDINGS: Enteric and endotracheal tubes withdrawn. No airspace consolidation.Platelike atelectasis left midlung. No pleural effusion. No pneumothorax. Cardiacand mediastinal and hilar contours are within normal limits. IMPRESSION No aspiration. Thank you for letting us participate in the care of this patient. If youare a health care provider and have any questions regarding this report,please contact the number below. For patients who have questions please contactthe health wound care rn that requested your imaging first. Damien Gonzalez MD IMG DX ORDERABLES * EKG 12 Lead (01/04/2024 1:19 PM EDT) [facility] Signature Ventricular rate 69 BPM MUSE SYSTEM Atrial Rate 69 BPM MUSE SYSTEM P-R Interval 170 ms MUSE SYSTEM QRS Duration 114 ms MUSE SYSTEM Q-T Interval 432 ms MUSE SYSTEM QTC Calculated (Bezet) 462 ms MUSE SYSTEM Calculated P [place] 21 degrees MUSE SYSTEM Calculated R [place] 39 degrees MUSE SYSTEM Calculated T [place] 36 degrees MUSE SYSTEM INTERPRETATION Normal sinus rhythm Normal ECG When compared with ECG of 03-JAN-2024 01:24, Vent. rate has increased BY ??33 BPM T wave inversion no longer evident in Anterior leads I personally reviewed the tracing and edited the fellows interpretation Confirmed by fellow MD Nancy, Subha ([id number]) on 01/07/2024 7:19:12 AM Confirmed by MD Carson Jon ([id number]) on 01/07/2024 2:56:02 PM MUSE SYSTEM 01/04/2024 1:19 PM EDT 01/07/2024 2:56 PM EDT Damien Gonzalez MD ECG ORDERABLES MUSE SYSTEM * (ABNORMAL) Basic Metabolic Panel (non-fasting) (01/04/2024 2:19 AM EDT) Glucose 118 65 - 199 mg/dL [facility] Comment:Diabetes: >=200 mg/d L plus symptoms Blood Urea Nitrogen 18 10 - 20 mg/dL [facility] Creatinine 0.90 0.80 - 1.50 mg/dL [facility] Sodium 140 135 - 145 mmol/L [facility] Potassium 3.4(L) 3.5 - 5.0 mmol/L [facility] Comment: Please note: ??Patients with WBC >100,000 may have falsely elevated Potassium levels. ??For accurate Potassium quantification in these patients send serum separator tube (gold top) for subsequent determinations. ??Contact the Clinical Chemistry Laboratory if there are any questions. Chloride 104 98 - 107 mmol/L [facility] Carbon Dioxide 27 22 - 31 mmol/L [facility] Anion Gap 9 5 - 15 mmol/L [facility] Calcium 8.4(L) 8.5 - 10.5 mg/dL [facility] Est Glomerular Filtration Rate 108 >=60 mL/min/1. 73 m?? [facility] Comment: This patient's estimated GFR was calculated using the 2020 CKD-EPI equation. The estimated GFR can vary from the measured GFR by up to 30% in the absence of rapidly changing kidney function. Assessment of the estimated GFR is not appropriate when creatinine concentrations are rapidly changing. For clinical situations in which a more precise estimate of GFR is necessary, consider alternative methods of GFR estimation such as a 24-hour urine creatinine clearance. Assignment of CKD stage 1-5 for patients with an eGFR near the transition point between stages may be based on clinical assessment of muscle mass and symptoms in addition to eGFR. Blood 01/04/2024 2:19 AM EDT 01/04/2024 2:32 AM EDT Narrative Resulting Agency Comment Spec In Lab Damien Gonzalez MD CHEMISTRY ORDERABLES Performing Organization Address [facility] [address]/[facility] Co de Phone Number [facility] [place] [address] * Magnesium (01/04/2024 2:19 AM EDT) Magnesium 0.83 0.69 - 1.07 mmol/L [facility] Blood 01/04/2024 2:19 AM EDT 01/04/2024 2:32 AM EDT Narrative Resulting Agency Comment Spec In Lab Damien Gonzalez MD CHEMISTRY ORDERABLES Performing Organization Address [facility] Co de Phone Number [facility] [place] [address] * Phosphorus (01/04/2024 2:19 AM EDT) Phosphorus 3.7 2.5 - 4.5 mg/dL [facility] Blood 01/04/2024 2:19 AM EDT 01/04/2024 2:32 AM EDT Narrative Resulting Agency Comment Spec In Lab Damien Gonzalez MD CHEMISTRY ORDERABLES Performing Organization Address City/[facility] [address]/ZIP Co de Phone Number [facility] [place] [address] * Differential, Automated (01/04/2024 2:17 AM EDT) Pathologist [facility] Neutrophil % 70.7 % [facility] Neutrophil Absolute 5.33 1.70 - 6.10 x10(3)/[facility] LABORAT[facility] Lymph % 20.0 % [facility] Lymphocytes Abs 1.5 0.9 - 3.2 x10(3)/[facility] LABORAT[facility] Monocyte % 7.2 % [facility] Monocyte Abs 0.5 0.3 - 0.9 x10(3)/[facility] LABOR[facility] Eos % 1.3 % [facility] Eosinophils Abs 0.1 0.0 - 0.4 x10(3)/[facility] Basophil % 0.5 % [facility] Baso Absolute 0.0 0.0 - 0.1 x10(3)/[facility] Immature Gran % 0.30 % [facility] Comment: Immature granulocytes(IG's)percentage and absolute count will include metamyelocytes, myelocytes, and promyelocytes. Blood smears from CBCs yielding IG's will be scanned manually for concordance. If this scan disagrees with the automated IG or if promyelocytes are noted, a manual differential will be performed. Immature Gran Absolute 0.02 0.00 - 0.04 x10(3)/[facility] Blood 01/04/2024 2:17 AM EDT 01/04/2024 2:32 AM EDT Narrative Resulting Agency Comment Spec In Lab Johny Renee MD HEMATOLOGY ORDERABLE S Performing Organization Address City/[facility] [address]/ZIP Co de Phone Number [facility] [place] [address] * (ABNORMAL) Hemogram (01/04/2024 2:17 AM EDT) White Blood Cell 7.5 4.0 - 9.5 x10(3)/mc L [facility] Red Blood Cell 4.17(L) 4.58 - 5.54 x10(6)/mc L [facility] Hemoglobin 11.4(L) 13.7 - 16.5 g/dL [facility] Hematocrit 34.9(L) 40.5 - 48.5 % [facility] Mean Cell Volume 83.7 82.9 - 93.1 fL [facility] Mean Cell Hemoglobin 27.3(L) 27.5 - 32.1 pg [facility] Mean Cell Hemoglobin Concentration 32.7 32.0 - 35.7 g/dL [facility] Platelet 133(L) 145 - 357 x10(3)/[facility] LABORATORY RDW Standard Deviation 39.0 36.0 - 45.0 [facility]ORY RDW coefficient of variation 12.9 11.4 - 13.8 % [facility] Mean Platelet Volume 10.3 7.6 - 12.9 fL [facility] NRBC% auto 0.0 % [facility] NRBC Absolute 0.000 0.000 - 0.000 x10(3)/[facility] Blood 01/04/2024 2:17 AM EDT 01/04/2024 2:32 AM EDT Narrative Resulting Agency Comment Spec In Lab Johny Renee MD HEMATOLOGY ORDERABLE S [facility] [place] [address] * Phosphorus (01/03/2024 8:45 AM EDT) Phosphorus 3.6 2.5 - 4.5 mg/dL [facility] Blood 01/03/2024 8:45 AM EDT 01/03/2024 8:58 AM EDT Narrative Resulting Agency Comment Spec In Lab Apolinar Blanchard MD CHEMISTRY ORDERABLES [facility] [place] [address] * XR Chest One View (01/03/2024 3:29 AM EDT) WORKSTATION ID [id number] RAD Anatomical Region Laterality Modality Chest N/A Digital Radiogra phy Impressions 01/03/2024 7:18 AM EDT Satisfactorily positioned endotracheal tube. Thank you for letting us participate in the care of this patient. ??If you are a health care provider and have any questions regarding this report, please contact the number below. ??For patients who have questions please contact the health wound care rn that requested your imaging first. ? Narrative 01/03/2024 7:18 AM EDT EXAMINATION: XR CHEST ONE VIEW CLINICAL HISTORY: Confirm ET positioning TECHNIQUE: 1 view of the chest COMPARISON: January 02, 2024 FINDINGS: Tip of endotracheal tube positioned 2.5 cm proximal to jv. Enteric tube is positioned off the edge of the film. No airspace consolidation. No pneumothorax or pleural effusion on this supine projection. Cardiac and mediastinal contours are within normal limits. Procedure Note Jessica Chavez MD - 01/03/2024 EXAMINATION: XR CHEST ONE VIEW CLINICAL HISTORY: Confirm ET positioning TECHNIQUE: 1 view of the chest COMPARISON: January 02, 2024 FINDINGS: Tip of endotracheal tube positioned 2.5 cm proximal to jv. Enterictube is positioned off the edge of the film. No airspace consolidation. No pneumothorax or pleural effusion on thissupine projection. Cardiac and mediastinal contours are within normal limits. IMPRESSION Satisfactorily positioned endotracheal tube. Thank you for letting us participate in the care of this patient. If youare a health care provider and have any questions regarding this report,please contact the number below. For patients who have questions please contactthe health wound care rn that requested your imaging first. Apolinar Blanchard MD IMG DX ORDERABLES * XR Abdomen 1 view (Generic) (01/03/2024 3:29 AM EDT) WORKSTATION ID [id number] RAD Anatomical Region Laterality Modality Abdomen N/A Digital Radiogra phy Impressions 01/03/2024 7:19 AM EDT Satisfactorily positioned orogastric tube. Thank you for letting us participate in the care of this patient. ??If you are a health care provider and have any questions regarding this report, please contact the number below. ??For patients who have questions please contact the health wound care rn that requested your imaging first. ? Narrative 01/03/2024 7:19 AM EDT EXAMINATION: XR ABDOMEN 1 VIEW (GENERIC) CLINICAL HISTORY: conirm OG placement TECHNIQUE: Limited abdomen COMPARISON: None FINDINGS: Satisfactorily positioned enteric tube with tip and port in subphrenic position, in the expected region of the pyloroduodenal junction and mid gastric body respectively. Considerable fecal burden within visualized segments of large bowel. Procedure Note Jessica Chavez MD - 01/03/2024 EXAMINATION: XR ABDOMEN 1 VIEW (GENERIC) CLINICAL HISTORY: conirm OG placement TECHNIQUE: Limited abdomen COMPARISON: None FINDINGS: Satisfactorily positioned enteric tube with tip and port in subphrenicposition, in the expected region of the pyloroduodenal junction and mid gastricbody respectively. Considerable fecal burden within visualized segments oflarge bowel. IMPRESSION Satisfactorily positioned orogastric tube. Thank you for letting us participate in the care of this patient. If youare a health care provider and have any questions regarding this report,please contact the number below. For patients who have questions please contactthe health wound care rn that requested your imaging first. Apolinar Blanchard MD IMG DX ORDERABLES * (ABNORMAL) Urinalysis with reflex Culture (01/03/2024 1:35 AM EDT) Glucose, Urine Dipstick Negative Negative mg/dL [facility] Protein, Urine Dipstick Negative Negative mg/dL [facility] Bilirubin, Urine Dipstick Negative Negative mg/dL [facility] Comment: Clinical correlation required for positive Urine Bilirubin results as false positive may occur with some drugs and drug related products. If a false positive is suspected a serum total bilirubin should be considered if clinically indicated. Urobilinogen, Urine Dipstick Normal Normal mg/dL [facility] pH, Urn (dipstick) 8.0 5.0 - 8.0 [facility] Blood, Urine Dipstick Negative Negative mg/dL [facility] Ketone, Urine Dipstick 15(A) Negative mg/dL [facility] Nitrite, Urine Dipstick Negative Negative [facility] Leukocytes, Urine Dipstick Negative Negative [facility] Appearance, Urine Dipstick Clear Clear [facility] Specific [place] Urine Automated 1.011 1.005 - 1.030 [facility] Color, Urine Dipstick Yellow Yellow [facility] Reflex to Culture No [facility] Indwelling Catheter Urine 01/03/2024 1:35 AM EDT 01/03/2024 1:51 AM EDT Narrative Resulting Agency Comment Spec In Lab Apolinar Blanchard MD URINE ORDERABLES [facility] [place] [address] * U Tricyclics Confirmation (01/03/2024 1:34 AM EDT) Tricyclics Conf, Urine SEE BELOW [facility] Comment: Test name ? Result Flag Units ??RefIntvl Amitriptyline, Quant, Urn ? <100 ? ng/mL Tricyclic Antidepressants Quant, Urine Interpretive comments: Urine concentrations of Tricyclic antidepressants do not correlate with signs or symptoms of therapy or toxicity. Therapeutic ranges are not established. 100 ng/mL limit of quantification: Amitriptyline, Nortriptyline, Imipramine, Desipramine, Doxepin, Nordoxepin, Protriptyline 200 ng/mL limit of quantification: Clomipramine, Norclomipramine This test was developed and its performance characteristics determined by [facility]. The U.S. Food and Drug Administration has not approved or cleared this test; however, FDA clearance or approval is not currently required for clinical use. The results are not intended to be used as the sole means for clinical diagnosis or patient management decisions. This test was developed and its performance characteristics determined by [facility]. It has not been cleared or approved by the US Food and Drug Administration. This test was performed in a CLIA certified laboratory and is intended for clinical purposes. Nortriptyline, Quant, Urn ? <100 ? ng/mL Amitriptyline/Nortriptyline Total, Urn ?Not Applicable Imipramine Quant, Urn ? <100 ? ng/mL Desipramine Quant, Urn ?<100 ? ng/mL Imipramine/Desipramine Total, Urn ?Not Applicable Doxepin Quant, Urn ?<100 ? ng/mL Nordoxepin Quant, Urn ? <100 ? ng/mL Doxepin/Nordoxepin Total, Urn ?Not Applicable Clomipramine Quant, Urn ? <200 ? ng/mL Norclomipramine Quant, Urn ?<200 ? ng/mL Clomipramine/Norclomipramine Total, Urn ?Not Applicable Protriptyline Quant, Urn ?<100 ? ng/mL Performed By: [facility] [address] [place] [address] Cash Register Mechanic: Moses Pimentel MD, PhD [place] Number: [id number] Urine 01/03/2024 1:34 AM EDT 01/05/2024 1:55 PM EDT Narrative Resulting Agency Comment Spec In Lab Catarino Benitez MD LAB SEND OUT ORDERAB LES [facility] [place] [address] * THC (Marijuana), Urine Confirmation (01/03/2024 1:34 AM EDT) U THC Conf Test ?Result ? Flag ??Unit ?? RefValue --- Carboxy-THC Confirmation, U ??Delta-8 Carboxy-Tetrahydroc annabinol by ?? Not Detected ? ng/mL ??Cutoff: 5 ?LC-MS/MS ??Delta-9 Carboxy-Tetrahydroc annabinol by ?? 23 ? ng/mL ??Cutoff: 5 ?LC-MS/MS ??Carboxy-THC Interpretation ?Positive. ? --ADDITIONAL INFORMATION-------- ?This report is intended for use in clinical monitoring and ?management of patients. ??It is not intended for use in ?employment-relate d testing. ?This test was developed and its performance characteristics ?determined by [facility] in a manner consistent with CLIA ?requirements. This test has not been cleared or approved by ?the U.S. Food and Drug Administration. ?Test Performed by: ?[facility] ?[address] [place] [address] ?Delivery Stock Clerk: Ernie López M.D. Ph.D.; CLIA# [id number] [facility] Urine 01/03/2024 1:34 AM EDT 01/05/2024 2:06 PM EDT Narrative Resulting Agency Comment Spec In Lab Catarino Benitez MD LAB SEND OUT ORDERAB LES [facility] [place] [address] * (ABNORMAL) Opioids Confirmation Panel, Urine (01/03/2024 1:34 AM EDT) Targeted Opioid Panel, Urine (MAY) Test ?Result ? Flag ??Unit ?? RefValue ------- Targeted Opioid Screen, U ??List prescribed opioids ? See medication list ? ---ADDITIONAL INFORMATION------- ?Accuracy and completeness of declared medications on ?reports solely dependent on information submitted by ?client. ??Codeine ? Not Detected ? ng/mL ??Cutoff: 25 ?Tylenol 3 ??Hlafztq-2-mukn-g lucuronide ?Not Detected ? ng/mL ??Cutoff: 100 ?Metabolite of codeine ??Morphine ?Not Detected ? ng/mL ??Cutoff: 25 ?Sofia Simmons, MS Contin; Also a minor metabolite (10%) of ?codeine and can be seen in low concentrations (<2,000 ?ng/mL) with poppy seed ingestion. ??Qllxqbyi-9-jatc- glucuronide ? Not Detected ? ng/mL ??Cutoff: 100 ?Metabolite of morphine ??6-monoacetylmorp natasha ?Not Detected ? ng/mL ??Cutoff: 25 ?Metabolite of heroin ??Hydrocodone ? Not Detected ? ng/mL ??Cutoff: 25 ?Lortab, [place], Vicodin; Also a very minor metabolite of ?codeine and impurity (<1%) of oxycodone. ??Norhydrocodone ?Not Detected ? ng/mL ??Cutoff: 25 ?Metabolite of hydrocodone ??Dihydrocodeine ?Not Detected ? ng/mL ??Cutoff: 25 ?Metabolite of hydrocodone ??Hydromorphone ? Not Detected ? ng/mL ??Cutoff: 25 ?Dilaudid, Exalgo; Also a metabolite of hydrocodone and a ?minor (<5%) metabolite of morphine. ??Hydromorphone-3- beta-glucuronide ?Not Detected ? ng/mL ??Cutoff: 100 ?Metabolite of hydromorphone ??Oxycodone ? Not Detected ? ng/mL ??Cutoff: 25 ?Endocet, Percocet, Oxycontin ??Noroxycodone ?Not Detected ? ng/mL ??Cutoff: 25 ?Metabolite of oxycodone ??Oxymorphone ? Not Detected ? ng/mL ??Cutoff: 25 ?Numorphan, Opana; Also a metabolite of oxycodone. ??Rjrdiihwbzb-5-cg ta-glucuronide ?Not Detected ? ng/mL ??Cutoff: 100 ?Metabolite of oxymorphone and/or naloxone (nornaloxone) ??Noroxymorphone ?Not Detected ? ng/mL ??Cutoff: 25 ?Metabolite of oxymorphone and/or naloxone (nornaloxone) ??Fentanyl ?Present ? @ ?ng/mL ??Cutoff: 2 ?Actiq, Duragesic, Fentora ??Norfentanyl ? Present ? @ ?ng/mL ??Cutoff: 2 ?Metabolite of fentanyl ??Meperidine ?Not Detected ? ng/mL ??Cutoff: 25 ?Demerol ??Normeperidine ? Not Detected ? ng/mL ??Cutoff: 25 ?Metabolite of meperidine ??Naloxone ?Not Detected ? ng/mL ??Cutoff: 25 ?Narcan ??Kaetseyu-1-bnwj- glucuronide ? Present ? @ ?ng/mL ??Cutoff: 100 ?Metabolite of naloxone ??Methadone ? Present ? @ ?ng/mL ??Cutoff: 25 ?Dolophine ??EDDP ?Present ? @ ?ng/mL ??Cutoff: 25 ?Metabolite of methadone ??Propoxyphene ?Not Detected ? ng/mL ??Cutoff: 25 ?Darvon, Darvocet ??Norpropoxyphene ? Not Detected ? ng/mL ??Cutoff: 25 ?Metabolite of propoxyphene ??Tramadol ?Not Detected ? ng/mL ??Cutoff: 25 ?Tradol, Ultram, Ultracet ??O-desmethyltrama dol ? Not Detected ? ng/mL ??Cutoff: 25 ?Metabolite of tramadol ??Tapentadol ?Not Detected ? ng/mL ??Cutoff: 25 ?Nucynta ??N-desmethyltapen tadol ? Not Detected ? ng/mL ??Cutoff: 50 ?Metabolite of tapentadol ??Tapentadol-beta- glucuronide ? Not Detected ? ng/mL ??Cutoff: 100 ?Metabolite of tapentadol ??Buprenorphine ? Not Detected ? ng/mL ??Cutoff: 5 ?Buprenex, Suboxone ??Norbuprenorphine ?Not Detected ? ng/mL ??Cutoff: 5 ?Metabolite of buprenorphine ??Norbuprenorphine glucuronide ?Not Detected ? ng/mL ??Cutoff: 20 ?Metabolite of buprenorphine ??Opioid Interpretation ? SEE COMMENTS ?Test detected the presence of methadone and its metabolite ?(EDDP). Suspect use of methadone within the past seven ?days. ?Test detected the presence of fentanyl and its metabolite ?(norfentanyl). Suspect use of fentanyl within the past ?three days. ?Test detected the presence of ??ibjzvrfe-1-jpyr- glucuronide ?(metabolite of naloxone) only. Suspect use of naloxone ?(Narcan) within the past three days. ? ---ADDITIONAL INFORMATION------- ?This test was developed and its performance characteristics ?determined by [facility] in a manner consistent with CLIA ?requirements. This test has not been cleared or approved by ?the U.S. Food and Drug Administration. ?Test Performed by: ?[facility] ?[address] [place] [address] ?Delivery Stock Clerk: Ernie López M.D. Ph.D.; CLIA# [id number]) [facility] Urine 01/03/2024 1:34 AM EDT 01/05/2024 2:06 PM EDT Catarino Benitez MD LAB SEND OUT ORDERAB LES [facility] [place] [address] * (ABNORMAL) Rapid Drug Screen w/ Confirmation, Urine (01/03/2024 1:34 AM EDT) Pathologist [facility] Barbiturates Screen, Urine None Detected None Detected [facility] [facility] Comment: The barbiturate screen detects barbiturates at concentrations >200 ng/mL. Note: Not all barbiturates cross-react equally with antibody used in this screen. A ? Presumptive Positive? result indicates that the screening result was positive but has not yet been confirmed by a highly-specific method. As with any screen, occasional false positive results from cross-reacting substances may occur. Not for Medico-Legal Purposes. Benzodiazepines Screen, Urine None Detected None Detected [facility] Comment: The benzodiazepines screen detects benzodiazepines at concentrations >100 ng/mL. Not all benzodiazepines cross-react equally with antibody used in this screen. Due to the low dosage of clonazepam, false negatives may be obtained due to low concentration of clonazepam metabolites. A ? Presumptive Positive? result indicates that the screening result was positive but has not yet been confirmed by a highly-specific method. As with any screen, occasional false positive results from cross-reacting substances may occur. Not for Medico-Legal Purposes. Cocaine Screen, Urine Presumptive Pos(A) None Detected [facility] Comment: The cocaine metabolites screen detects benzoylecgonine (Cocaine Metabolite) at concentrations >150 ng/mL. A ? Presumptive Positive? result indicates that the screening result was positive but has not yet been confirmed by a highly-specific method. As with any screen, occasional false positive results from cross-reacting substances may occur. Not for Medico-Legal Purposes. Methadone Metabolites Screen, Urine Presumptive Pos(A) None Detected [facility] Comment: The methadone metabolite screen detects EDDP (major methadone metabolite) at concentrations >100 ng/mL. A ? Presumptive Positive? result indicates that the screening result was positive but has not yet been confirmed by a highly-specific method. As with any screen, occasional false positive results from cross-reacting substances may occur. Not for Medico-Legal Purposes. Opiate Screen, Urine None Detected None Detected [facility] Comment: The opiates screen detects opiates at concentrations >300 ng/mL. Please note that oxycodone, oxymorphone, fentanyl, tramadol, and other synthetic opioids are not detected by the opiate screen. A ? Presumptive Positive? result indicates that the screening result was positive but has not yet been confirmed by a highly-specific method. As with any screen, occasional false positive results from cross-reacting substances may occur. Not for Medico-Legal Purposes. Cannabinoid Screen, Urine Presumptive Pos(A) None Detected [facility] Comment: The marijuana metabolites screen detects the THC metabolite (72-[id number]-0-carboxy-delta 9-THC) at concentrations >20 ng/mL. A ? Presumptive Positive? result indicates that the screening result was positive but has not yet been confirmed by a highly-specific method. As with any screen, occasional false positive results from cross-reacting substances may occur. Not for Medico-Legal Purposes. Oxycodone Screen, Urine None Detected None Detected [facility] Comment: The oxycodone screen detects oxycodone and oxymorphone at concentrations >100 ng/mL. A ? Presumptive Positive? result indicates that the screening result was positive but has not yet been confirmed by a highly-specific method. As with any screen, occasional false positive results from cross-reacting substances may occur. Not for Medico-Legal Purposes. Buprenorphine Screen, Urine None Detected None Detected [facility] Comment: The buprenorphine screen detects buprenorphine at concentrations >=5 ng/mL. A ? Presumptive Positive? result indicates that the screening result was positive but has not yet been confirmed by a highly-specific method. As with any screen, occasional false positive results from cross-reacting substances may occur. Not for Medico-Legal Purposes. This test has not been cleared by the [place] FDA. Performance characteristics of this test were determined by [facility] in accordance with CLIA requirements. This laboratory is qualified under CLIA to perform high-complexity testing. Fentanyl Screen, Urine Presumptive Pos(A) None Detected [facility] Comment: The fentanyl screen detects fentanyl at concentrations >=2 ng/mL. A ? Presumptive Positive? result indicates that the screening result was positive but has not yet been confirmed by a highly-specific method. As with any screen, occasional false positive results from cross-reacting substances may occur. Not for Medico-Legal Purposes. This test has not been cleared by the [place] FDA. Performance characteristics of this test were determined by [facility] in accordance with CLIA requirements. This laboratory is qualified under CLIA to perform high-complexity testing. Tricyclics Screen, Urine Presumptive Pos(A) None Detected [facility] Comment: The tricyclics screen detects tricyclic antidepressants at concentrations >=150 ng/mL. Not all tricyclics cross-react equally with the antibody used in this screen. A ? Presumptive Positive? result indicates that the screening result was positive but has not yet been confirmed by a highly-specific method. As with any screen, occasional false positive results from cross-reacting substances may occur. Not for Medico-Legal Purposes. This test has not been cleared by the [place] FDA. Performance characteristics of this test were determined by [facility] in accordance with CLIA requirements. This laboratory is qualified under CLIA to perform high-complexity testing. Ethanol Screen, Urine None Detected None Detected [facility] Comment:This urine ethanol a ssay detects ethanol at concentrations >/= 100 mg/L. Amphetamines Screen, Urine None Detected None Detected [facility] Comment: The amphetamine screen detects d-amphetamine and d-methamphetamine at concentrations >300 ng/mL. A ? Presumptive Positive? result indicates that the screening result was positive but has not yet been confirmed by a highly-specific method. As with any screen, occasional false positive results from cross-reacting substances may occur. Not for Medico-Legal Purposes. Creatinine Specimen Validity Test, Urine 44 >=20 mg/dL [facility] Chromate Specimen Validity Test, Urine <2.0 <=49.9 mg/L [facility] Nitrite Specimen Validity Test, Urine <50 <=499 mg/L [facility] Oxidant Specimen Validity Test, Urine 363(H) <=199 mg/L [facility] pH Specimen Validity Test, Urine 7.4 3.0 - 10.9 [facility] Adulterants Screen, Urine Suspected(A) None Detected [facility] Comment: An Adulteration screen performed on this urine sample produced a result that is suspicious for adulteration. Urine adulteration can produce false negative or false positive drug screen results. Urine 01/03/2024 1:34 AM EDT 01/03/2024 1:51 AM EDT Narrative Resulting Agency Comment Spec In Lab Catarino Benitez MD CHEMISTRY ORDERABLES Performing Organization Address City/State/[facility] Co de Phone Number [facility] [place] [address] * Rapid Drug Screen, Urine (DANA Request) (01/03/2024 1:34 AM EDT) DANA Conf Requested Yes [facility] DANA Requested See Comment [facility] Comment:Refer to Rapid Drug Screen w/ Confirmation, Urine for results. Urine 01/03/2024 1:34 AM EDT 01/03/2024 1:51 AM EDT Narrative Resulting Agency Comment Spec In Lab Apolinar Blanchard MD URINE ORDERABLES Performing Organization Address [facility] [address]/[facility] Co de Phone Number [facility] [place] [address] * Valproic Acid Level, Total (01/03/2024 1:30 AM EDT) Valproic Acid <3 mg/L [facility] Comment: Therapeutic Range: Anticonvulsant Therapy: ??50-100 mg/L Manic Episodes Associated with Bipolar Disorder: ??50-125 mg/L Blood 01/03/2024 1:30 AM EDT 01/03/2024 1:48 AM EDT Narrative Resulting Agency Comment Spec In Lab Apolinar Blanchard MD CHEMISTRY ORDERABLES Performing Organization Address [facility] de Phone Number [facility] [place] [address] * (ABNORMAL) Digoxin level (01/03/2024 1:30 AM EDT) Digoxin <0.3(L) 0.8 - 2.0 mcg/L [facility] Blood 01/03/2024 1:30 AM EDT 01/03/2024 1:48 AM EDT Narrative Resulting Agency Comment Spec In Lab Apolinar Blanchard MD CHEMISTRY ORDERABLES Performing Organization Address [facility] [address]/[facility] Co de Phone Number [facility] [place] [address] * (ABNORMAL) [place] level (01/03/2024 1:30 AM EDT) [place] <0.05(L) 0.60 - 1.20 mmol/L [facility] Blood 01/03/2024 1:30 AM EDT 01/03/2024 1:48 AM EDT Narrative Resulting Agency Comment Spec In Lab Apolinar Blanchard MD CHEMISTRY ORDERABLES Performing Organization Address [facility] [address]/ZIP Co de Phone Number [facility] [place] [address] * (ABNORMAL) Differential, Automated (01/03/2024 1:30 AM EDT) Neutrophil % 70.0 % [facility] Neutrophil Absolute 6.13(H) 1.70 - 6.10 x10(3)/mc L [facility] Lymph % 21.0 % [facility] Lymphocytes Abs 1.8 0.9 - 3.2 x10(3)/ L [facility] Monocyte % 7.2 % [facility] Monocyte Abs 0.6 0.3 - 0.9 x10(3)/ L [facility] Eos % 1.1 % [facility] Eosinophils Abs 0.1 0.0 - 0.4 x10(3)/ L [facility] Basophil % 0.5 % [facility] Baso Absolute 0.0 0.0 - 0.1 x10(3)/ L [facility] Immature Gran % 0.20 % [facility] Comment: Immature granulocytes(IG's)percentage and absolute count will include metamyelocytes, myelocytes, and promyelocytes. Blood smears from CBCs yielding IG's will be scanned manually for concordance. If this scan disagrees with the automated IG or if promyelocytes are noted, a manual differential will be performed. Immature Gran Absolute 0.02 0.00 - 0.04 x10(3)/ L [facility] Blood 01/03/2024 1:30 AM EDT 01/03/2024 1:48 AM EDT Narrative Resulting Agency Comment Spec In Lab Catarino Benitez MD HEMATOLOGY ORDERABLE S Performing Organization Address City/[facility] [address]/ZIP Co de Phone Number [facility] [place] [address] * (ABNORMAL) Hemogram (01/03/2024 1:30 AM EDT) [facility] White Blood Cell 8.8 4.0 - 9.5 x10(3)/ L [facility] Red Blood Cell 4.30(L) 4.58 - 5.54 x10(6)/[facility] Hemoglobin 12.2(L) 13.7 - 16.5 g/dL [facility] Hematocrit 35.7(L) 40.5 - 48.5 % [facility] Mean Cell Volume 83.0 82.9 - 93.1 fL [facility] Mean Cell Hemoglobin 28.4 27.5 - 32.1 pg [facility] Mean Cell Hemoglobin Concentration 34.2 32.0 - 35.7 g/dL [facility] Platelet 158 145 - 357 x10(3)/[facility] RDW Standard Deviation 38.9 36.0 - 45.0 [facility] RDW coefficient of variation 12.8 11.4 - 13.8 % [facility] Mean Platelet Volume 10.1 7.6 - 12.9 fL [facility] NRBC% auto 0.0 % [facility] NRBC Absolute 0.000 0.000 - 0.000 x10(3)/[facility] Blood 01/03/2024 1:30 AM EDT 01/03/2024 1:48 AM EDT Narrative Resulting Agency Comment Spec In Lab Catarino Benitez MD HEMATOLOGY ORDERABLE S [facility] [place] [address] * (ABNORMAL) CMP w/fasting Glucose (01/03/2024 1:30 AM EDT) Pathologist [facility] Glucose Fasting 123(H) 65 - 99 mg/dL [facility] Comment: ?Fasting* Glucose Interpretive Criteria Normal ?65-99 mg/dL Impaired Fasting glucose ?100-125 mg/dL Consistent with Diabetes Mellitus ? >or= 126 mg/dL *Fasting is defined as no caloric intake for at least 8 hours In the absence of unequivocal hyperglycemia a plasma glucose value of >or= 126 mg/dL should be repeated on a subsequent day. Diagnosis and Classification of Diabetes Mellitus, Position Statement from the [place] [employer]. ??Diabetes Care, Volume 33, Supplement 1, Sep 2009 Blood Urea Nitrogen 18 10 - 20 mg/dL [facility] Creatinine 0.90 0.80 - 1.50 mg/dL [facility] Sodium 142 135 - 145 mmol/L [facility] Potassium 3.9 3.5 - 5.0 mmol/L [facility] Comment: Please note: ??Patients with WBC >100,000 may have falsely elevated Potassium levels. ??For accurate Potassium quantification in these patients send serum separator tube (gold top) for subsequent determinations. ??Contact the Clinical Chemistry Laboratory if there are any questions. Chloride 104 98 - 107 mmol/L [facility] Carbon Dioxide 27 22 - 31 mmol/L [facility] Anion Gap 11 5 - 15 mmol/L [facility] Calcium 8.9 8.5 - 10.5 mg/dL [facility] Protein, Total 6.0(L) 6.1 - 8.0 g/dL [facility] Albumin 3.8 3.2 - 5.2 g/dL [facility] Aspartate Aminotransferase 27 0 - 39 unit/L [facility] Alanine Aminotransferase 22 0 - 55 unit/L [facility] Alkaline Phosphatase 64 40 - 130 unit/L [facility] Bilirubin, Total 0.9 0.2 - 1.3 mg/dL [facility] Est Glomerular Filtration Rate 108 >=60 mL/min/1. 73 m?? [facility] Comment: This patient's estimated GFR was calculated using the 2020 CKD-EPI equation. The estimated GFR can vary from the measured GFR by up to 30% in the absence of rapidly changing kidney function. Assessment of the estimated GFR is not appropriate when creatinine concentrations are rapidly changing. For clinical situations in which a more precise estimate of GFR is necessary, consider alternative methods of GFR estimation such as a 24-hour urine creatinine clearance. Assignment of CKD stage 1-5 for patients with an eGFR near the transition point between stages may be based on clinical assessment of muscle mass and symptoms in addition to eGFR. Blood 01/03/2024 1:30 AM EDT 01/03/2024 1:48 AM EDT Narrative Resulting Agency Comment Spec In Lab Apolinar Blanchard MD CHEMISTRY ORDERABLES Performing Organization Address [facility] [address]/[facility] Co de Phone Number [facility] [place] [address] * Phosphorus (01/03/2024 1:30 AM EDT) Phosphorus 2.9 2.5 - 4.5 mg/dL [facility] Blood 01/03/2024 1:30 AM EDT 01/03/2024 1:48 AM EDT Narrative Resulting Agency Comment Spec In Lab Apolinar Blanchard MD CHEMISTRY ORDERABLES Performing Organization Address [facility] [address]/[facility] Co de Phone Number [facility] [place] [address] * (ABNORMAL) Magnesium (01/03/2024 1:30 AM EDT) Magnesium 1.08(H) 0.69 - 1.07 mmol/L [facility] Blood 01/03/2024 1:30 AM EDT 01/03/2024 1:48 AM EDT Narrative Resulting Agency Comment Spec In Lab Apolinar Blanchard MD CHEMISTRY ORDERABLES Performing Organization Address City/[facility] [address]/ZIP Co de Phone Number [facility] [place] [address] * TSH (01/03/2024 1:30 AM EDT) [facility] Thyroid Stimulating Hormone 0.67 0.27 - 4.20 mcIU/mL [facility] Comment: Reference Interval (mcIU/mL): Females: ??First Trimester: 0.23-3.88 ??Second Trimester: 0.22-3.90 ??Third Trimester: 0.44-4.66 Blood 01/03/2024 1:30 AM EDT 01/03/2024 1:48 AM EDT Narrative Resulting Agency Comment Spec In Lab Apolinar Blanchard MD CHEMISTRY ORDERABLES [facility] [place] [address] * (ABNORMAL) BLOOD GAS 2 VENOUS (01/03/2024 1:25 AM EDT) [facility] pH, Venous 7.45(H) 7.32 - 7.42 [facility] PCO2, Venous 41 41 - 51 mmHg [facility] PO2, Venous 52(H) 25 - 40 mmHg [facility] Bicarbonate, Venous 28.0 mmol/L [facility] Base Excess, Venous 4.0 mmol/L [facility] Hgb Blood Gas 13.5(L) 13.7 - 16.5 g/dL [facility] Oxyhemoglobin, Venous 86.7 % [facility] Carboxyhemoglob in, Venous 2.4 % [facility] Comment: Nonsmokers: 0.5-1.5% COHB Smokers: Variable, but usually less than 10% Toxic: 20-30% COHB Lethal: Greater than 60% COHB Methemoglobin, Venous 0.4 <=1.5 % [facility] Na Whole Blood 141 135 - 145 mmol/L [facility] K Whole Blood 3.7 3.5 - 5.0 mmol/L [facility] Comment: Please note: Patients with WBC >100,000 may have falsely elevated Potassium levels. Contact the Clinical Chemistry Laboratory if there are any questions. ICa Whole Blood 1.18 1.15 - 1.33 mmol/L [facility] Comment: Note: ??Total bilirubin higher than 20 mg/dL may lead to falsely low ionized calcium. CL Whole Blood 102 98 - 107 mmol/L [facility] Gluc Whole Bld 119 65 - 199 mg/dL [facility] Comment:Diabetes: >=200 mg/d L plus symptoms Lactate WB 1.3 0.5 - 2.2 mmol/L [facility] Fraction of Inspired Oxygen, Venous 40 % [facility] Blood Gas Source Venous [facility] Blood Venous Draw / Unknown 01/03/2024 1:25 AM EDT 01/03/2024 1:25 AM EDT Narrative Resulting Agency Comment Spec In Lab Catarino Benitez MD POINT OF CARE TEST O RDERABLES [facility] [place] [address] * EKG 12 Lead (01/03/2024 1:24 AM EDT) Ventricular rate 36 BPM MUSE SYSTEM Atrial Rate 36 BPM MUSE SYSTEM P-R Interval 172 ms MUSE SYSTEM QRS Duration 114 ms MUSE SYSTEM Q-T Interval 618 ms MUSE SYSTEM QTC Calculated (Bezet) 477 ms MUSE SYSTEM Calculated P [place] 2 degrees MUSE SYSTEM Calculated T [place] 23 degrees MUSE SYSTEM INTERPRETATION Marked sinus bradycardia T wave abnormality, consider anterior ischemia Prolonged QT Abnormal ECG When compared with ECG of 12-JUL-2019 10:20, T wave inversion now evident in Anterior leads QT has lengthened Confirmed by Jovanny CAZARES, Carlitos (1960) on 01/04/2024 3:11:04 PM MUSE SYSTEM 01/03/2024 1:24 AM EDT 01/04/2024 3:11 PM EDT Damien Gonzalez MD ECG ORDERABLES MUSE SYSTEM * POCT Glucose (01/03/2024 1:24 AM EDT) Glucose, POC 129 65 - 199 mg/dL [facility] Comment: Supplemental ranges: <140 mg/dL before meals <180 mg/dL all other times of the day Blood 01/03/2024 1:24 AM EDT 01/03/2024 1:24 AM EDT Damien Gonzalez MD POINT OF CARE TEST O RDERABLES [facility] [place] [address] documented in this encounter Visit Diagnoses Diagnosis Toxic encephalopathy- Primary Bradycardia Other specified cardiac dysrhythmias Screening for cardiovascular condition Screening for other and unspecified cardiovascular conditions documented in this encounter Admitting Diagnoses Diagnosis Toxic encephalopathy documented in this encounter Administered Medications Inactive Administered Medications - up to 3 most recent administrations Medication Order MAR Action Action Date Dose Rate Site acetaminophen (Tylenol) (32.02 mg/mL) oral liquid 1,000 mg 1,000 mg, Oral, EVERY 8 HOURS SCHEDULED, First dose on 01/03/24 at 0600, Until Discontinued, May give PO or Per Tube. Maximum dose of acetaminophen is 4,000 mg from all sources in 24 hours. When ordered for pain, acetaminophen should be given even when other ordered pain medications are indicated., Routine Given 01/03/2024 2:46 PM EDT 1,000 mg acetaminophen (Tylenol) tablet 650 mg 650 mg, Oral, EVERY 6 HOURS PRN, Starting on 01/04/24 at 1246, Until Fri01/09/24 at 2212, Pain, Fever, Headaches, Maximum dose of acetaminophen is 4,000 mg from all sources in 24 hours. When ordered for pain, acetaminophen should be given even when other ordered pain medications are indicated., Routine Given 01/07/2024 7:54 PM EDT 650 mg Given 01/07/2024 5:55 AM EDT 650 mg Given 01/06/2024 9:49 PM EDT 650 mg acetaminophen (Tylenol) tablet 975 mg 975 mg, Oral, EVERY 8 HOURS SCHEDULED, First dose on 01/03/24 at 0600, Until Discontinued, May give PO or Per Tube. Maximum dose of acetaminophen is 4,000 mg from all sources in 24 hours. When ordered for pain, acetaminophen should be given even when other ordered pain medications are indicated. , Routine Given 01/04/2024 5:12 AM EDT 975 mg Given 01/03/2024 9:16 PM EDT 975 mg bisacodyL (Dulcolax) suppository 10 mg 10 mg, Rectal, DAILY PRN, Starting on Fri01/09/24 at 1546, Until Fri01/09/24 at 2212, Constipation, Give if no BM within last 24 hr and rectal fullness is reported or assessed. Give concomitantly with any scheduled bowel medications ordered. , Routine bisacodyl EC (Dulcolax) tablet 10 mg 10 mg, Oral, 2 TIMES DAILY PRN, Starting on Fri01/09/24 at 1546, Until Fri01/09/24 at 2212, Constipation, Give if no BM after 24 hr after prior interventions. BM expected in 6-8 hours. If BM desired sooner, use next ordered agent. Give concomitantly with any scheduled bowel medications ordered., Routine enoxaparin (Lovenox) (40 mg/0.4 mL) subcutaneous injection 40 mg 40 mg, Subcutaneous, NIGHTLY, First dose on 01/03/24 at 2100, Until Discontinued, Routine Given 01/05/2024 9:42 PM EDT 40 mg Given 01/04/2024 9:03 PM EDT 40 mg Given 01/03/2024 9:17 PM EDT 40 mg lactated Ringers 1,000 mL IV bolus at 250 mL/hr, Intravenous, ONCE, 1 dose, On 01/03/24 at 0645 New Bag 01/03/2024 8:41 AM EDT 250 mL/hr lactated [place] 500 mL IV bolus at 250 mL/hr, Intravenous, ONCE, 1 dose, On 01/03/24 at 1945 New Bag 01/03/2024 8:00 PM EDT 250 mL/hr lactated [place] 500 mL IV bolus Intravenous, ONCE, 1 dose, On 01/04/24 at 0700 New Bag 01/04/2024 6:13 AM EDT lactulose (Chronulac) (0.67 gram/mL) oral liquid 20 g 20 g, Oral, DAILY PRN, Starting on Fri01/09/24 at 1546, Until Fri01/09/24 at 2212, Constipation, Give if no BM 24 hr after prior interventions or if BM is desired within 2 hr. Give concomitantly with any scheduled bowel medications ordered, Routine lactulose (Chronulac) (0.67 gram/mL) oral liquid 20 g 20 g, Oral, DAILY PRN, Starting on Fri01/09/24 at 1546, Until Fri01/09/24 at 2212, Constipation, Give an additional (2nd) dose of lactulose 2 hr after 1st dose if still no BM. Disregard if 1st dose of lactulose not ordered. Give concomitantly with any scheduled bowel medications ordered. , Routine magnesium citrate oral liquid 296 mL 296 mL, Oral, ONCE PRN, 1 dose, Starting on Fri01/09/24 at 1546, Until Fri01/09/24 at 2212, Constipation, Give if no BM 2 hr after previous interventions. If 2 hr after mag citrate there is still no BM, see order for tap water enema, if placed. Give concomitantly with any scheduled bowel medications ordered., Routine methadone (Dolophine) (10 mg/mL) oral liquid 120 mg 120 mg, Oral, DAILY, First dose on Fri01/06/24 at 0915, Until Discontinued, Liquid methadone should be used to avoid diversion, and a mouth check should be performed after each dose., Routine, Name of patient's Methadone clinic? methadone clinic [facility], [facility] Methadone clinic phone: ), Date last Methadone dose was given at the Outpatient Clinic? 01/02/2024, Dose of Methadone provided at the clinic? 120 mg oral liquid Given 01/09/2024 8:19 AM EDT 120 mg Given 01/08/2024 9:53 AM EDT 120 mg Given 01/07/2024 8:32 AM EDT 120 mg naloxone (Narcan) (0.4 mg/mL) injection 0.2-2 mg 0.2-2 mg, Intravenous, ONCE PRN, 1 dose, Starting on Fri01/06/24 at 0823, Until Fri01/09/24 at 2212, Opioid Reversal, Start with 0.2mg via intravenous. May repeat 0.2 mg every 2-3 minutes until patient is responsive or vital signs improve to maximum of 2 mg total. If ineffective, call HERT team [phone]., Routine nicotine (Nicoderm CQ) 21 mg/24 hr patch 21 mg 21 mg (1 patch), Transdermal, Administer over 24 Hours, DAILY, First dose on Fri01/05/24 at 1130, Until Discontinued, Apply new patch to clean, dry, hair-free skin on the upper body or upper outer arm; each patch should be applied to a different site., Routine Patch Applied 01/05/2024 9:42 PM EDT 21 mg 03- Shoulder (Left) Patch Applied 01/05/2024 12:11 PM EDT 21 mg 10- Arm Upper (Right) nicotine (Nicoderm CQ) 21 mg/24 hr patch 21 mg 21 mg (1 patch), Transdermal, Administer over 24 Hours, DAILY, First dose (after last modification) on Fri01/07/24 at 0900, Until Discontinued, Apply new patch to clean, dry, hair-free skin on the upper body or upper outer arm; each patch should be applied to a different site., Routine Patch Applied 01/09/2024 8:18 AM EDT 21 mg 03- Shoulder (Left) Patch Applied 01/08/2024 9:54 AM EDT 21 mg 10- Arm Upper (Right) Patch Applied 01/07/2024 8:34 AM EDT 21 mg 09- Arm Upper (Left) nicotine (Nicoderm CQ) 21 mg/24 hr patch 21 mg 21 mg (1 patch), Transdermal, Administer over 24 Hours, ONCE, 1 dose, On Fri01/06/24 at 2230, Apply new patch to clean, dry, hair-free skin on the upper body or upper outer arm; each patch should be applied to a different site., Routine Patch Applied 01/06/2024 9:50 PM EDT 21 mg 04- Shoulder (Right) nicotine (Nicoderm CQ) 21 mg/24 hr patch Patch Verification Transdermal, 2 TIMES DAILY, First dose (after last modification) on Fri01/06/24 at 2215, Until Discontinued, Verify nicotine 21 mg/24 hr patch nicotine (Nicoderm CQ) 21 mg/24 hr patch Patch Verification Transdermal, 2 TIMES DAILY, First dose on Fri01/07/24 at 0900, Until Discontinued, Verify nicotine 21 mg/24 hr patch ondansetron (Zofran) tablet 4 mg 4 mg, Oral, ONCE, 1 dose, On Fri01/06/24 at 0145, Routine Given 01/06/2024 1:16 AM EDT 4 mg polyethylene glycoL (Miralax) packet 17 g 17 g, Oral, DAILY PRN, Starting on Fri01/09/24 at 1546, Until Fri01/09/24 at 2212, Constipation, Give if no BM within last 24 hr. Give concomitantly with any scheduled bowel medications ordered. , Routine potassium chloride ER (Klor-Con M) crystal tablet 40 mEq 40 mEq, Oral, EVERY 4 HOURS PRN, Starting on Fri01/04/24 at 0321, Until Fri01/04/24 at 1246, hypokalemia, Administer for serum potassium (mMol/L) of 3.3 - 3.5. If potassium level GREATER THAN or equal to 3.5 mMol/L, no recheck of potassium level or additional supplementation is necessary. Recheck electrolytes tomorrow morning. potassium chloride ER particle/crystal tablets (Klor-Con M) may be broken in half and each half swallowed separately. Tablets can be dissolved in ~4 ounces of water; allow ~2 minutes to dissolve, stir well and drink immediately. Do not crush, chew, or suck on tablet., Routine Given 01/04/2024 3:32 AM EDT 40 mEq prochlorperazine (Compazine) (5 mg/mL) injection 5 mg 5 mg, Intravenous, ONCE, 1 dose, On Fri01/06/24 at 0300, Routine Given 01/06/2024 2:22 AM EDT 5 mg propofoL (Diprivan) (10 mg/mL) bolus from infusion 10 mg 10 mg, Intravenous, EVERY 10 MIN PRN, Starting on 01/03/24 at 0123, Until 01/04/24 at 0629, SAT resedation, Administer bolus dose of propofoL of 10 mg. PropofoL bolus may be repeated for an additional 10 mg. Wait 5 to 10 minutes to see onset effect from 1st bolus. Do not administer more than 20 mg in a 4 hour period., Routine Bolus from Infusion 01/03/2024 7:57 AM EDT 10 mg Bolus from Infusion 01/03/2024 3:24 AM EDT 10 mg propofoL (Diprivan) (10 mg/mL) infusion 0-50 mcg/kg/min ? 83.5 kg (0-25.05 mL/hr, rounded to 0-25.1 mL/hr), Intravenous, CONTINUOUS, Starting on Fri01/03/24 at 0215, Until Fri01/04/24 at 0629, Titrate to sedation level of RASS Goal (-)1 to 0 . Start at 20 mcg/kg/min. Increase/decrease 10 mcg/kg/min every 3 minutes until goal reached. Once stable, reassess patient every 30 minutes. Do not exceed 50 mcg/kg/minute. Change rate only after assessing and documenting RASS. Reassess sedation scores within 30 minutes after every rate change. If under sedated, increase rate by 10 mcg/kg/min. If over sedated, hold sedative until target RASS (-)1 to 0 achieved and then restart at 50% of previous rate. Call transfer and pumphouse operator if goal not achieved at maximum rate. If SAT is ordered and if patient meets criteria for Spontaneous Awakening Trial, titrate per protocol., Routine Rate/Dose Change 01/03/2024 7:59 AM EDT 20 mcg/kg/min 10 mL/hr Rate/Dose Verify 01/03/2024 6:00 AM EDT 10 mcg/kg/min 5 mL /hr Rate/Dose Verify 01/03/2024 4:00 AM EDT 10 mcg/kg/min 5 mL /hr QUEtiapine (SEROquel) tablet 25 mg 25 mg, Oral, 3 TIMES DAILY PRN, Starting on Fri01/03/24 at 1736, Until Fri01/09/24 at 2212, Agitation, for agitation, now, Routine senna-docusate (Pericolace) 8.6-50 mg per tablet 2 tablet 2 tablet, Oral, 2 TIMES DAILY, First dose on Fri01/09/24 at 2100, Until Discontinued, Hold for loose stool. , Routine thiamine (Vitamin B-1) 500 mg in sodium chloride 0.9% 55 mL infusion 500 mg, Intravenous, DAILY, 3 doses, First dose on Fri01/03/24 at 0200, Last dose on Fri01/05/24 at 0900, Administer over 30 Minutes, Doses of 100 mg are to be administered as IV push over 5 minutes. Doses of 200 mg or more should be mixed in 50 mL 0.9% Sodium Chloride and infused over 30 minutes. New Bag 01/05/2024 10:00 AM EDT 500 mg 110 mL/hr New Bag 01/04/2024 9:04 AM EDT 500 mg 110 mL/hr New Bag 01/03/2024 2:12 AM EDT 500 mg 110 mL/hr documented in this encounter Active and Recently Administered Medications Times are shown in EDT. Scheduled Medication Order 01/07/2024 01/08/2024 01/09/2024 enoxaparin (Lovenox) (40 mg/0.4 mL) subcutaneous injection 40 mg 40 mg, Subcutaneous, NIGHTLY, First dose on Fri01/03/24 at 2100, Until Discontinued, Routine 2100 (Not Given - Provider: Ivory Miller RN - Reason: Patient/family refused) 2100 (Not Given - Provider: Tito Reed RN - Reason: Patient/family refused) methadone (Dolophine) (10 mg/mL) oral liquid 120 mg 120 mg, Oral, DAILY, First dose on Fri01/06/24 at 0915, Until Discontinued, Liquid methadone should be used to avoid diversion, and a mouth check should be performed after each dose., Routine, [facility] ), Date last Methadone dose was given at the Outpatient Clinic? 01/02/2024, Dose of Methadone provided at the clinic? 120 mg oral liquid 0832 (Given - Provider: Akua Golden RN) 0953 (Given - Provider: Akua Golden RN) 0819 (Given - Provider: Pradip Blanca LPN) nicotine (Nicoderm CQ) 21 mg/24 hr patch 21 mg(Linked Group 1) 21 mg (1 patch), Transdermal, Administer over 24 Hours, DAILY, First dose (after last modification) on Fri01/07/24 at 0900, Until Discontinued, Apply new patch to clean, dry, hair-free skin on the upper body or upper outer arm; each patch should be applied to a different site., Routine 0834 (Patch Applied - Provider: Akua oGlden RN) 0834 (Patch Removed - Provider: Akua Golden RN)0954 (Patch Applied - Provider: Akua Golden RN) 0818 (Patch Applied - Provider: Pradip Blanca LPN)0859 (Patch Removed - Provider: Pradip Blanca LPN)1999 (Due: Patch Removed - Provider: Automatic Discharge Provider - Comment: Time automatically adjusted from order being discontinued) nicotine (Nicoderm CQ) 21 mg/24 hr patch Patch Verification(Linked Group 1) Transdermal, 2 TIMES DAILY, First dose (after last modification) on Fri01/06/24 at 2215, Until Discontinued, Verify nicotine 21 mg/24 hr patch 0900 (Patch (dose and location) verified - Provider: Akua Golden RN)2100 (Patch (dose and location) verified - Provider: Ivory Miller RN) 0900 (Patch (dose and location) verified - Provider: Akua Golden RN)2099 (Patch (dose and location) verified - Provider: Tito Reed RN) 0900 (Patch (dose and location) verified - Provider: Pradip Blanca LPN) nicotine (Nicoderm CQ) 21 mg/24 hr patch Patch Verification(Linked Group 2) Transdermal, 2 TIMES DAILY, First dose on Fri01/07/24 at 0900, Until Discontinued, Verify nicotine 21 mg/24 hr patch 0900 (Patch (dose and location) verified - Provider: Akua Golden RN)2100 (Patch (dose and location) verified - Provider: Ivory Miller RN) 0900 (Patch (dose and location) verified - Provider: Akua Golden RN)2100 (Patch (dose and location) verified - Provider: Tito Reed RN) 0900 (Patch (dose and location) verified - Provider: Pradip Blanca LPN) senna-docusate (Pericolace) 8.6-50 mg per tablet 2 tablet 2 tablet, Oral, 2 TIMES DAILY, First dose on Fri01/09/24 at 2100, Until Discontinued, Hold for loose stool. , Routine PRN Medication Order 01/07/2024 01/08/2024 01/09/2024 acetaminophen (Tylenol) tablet 650 mg 650 mg, Oral, EVERY 6 HOURS PRN, Starting on Fri01/04/24 at 1246, Until Fri01/09/24 at 2212, Pain, Fever, Headaches, Maximum dose of acetaminophen is 4,000 mg from all sources in 24 hours. When ordered for pain, acetaminophen should be given even when other ordered pain medications are indicated., Routine 0555 (Given - Provider: Ivory Miller, ROBBIN)1953 (Given - Provider: Ivory Miller, ROBBIN) bisacodyL (Dulcolax) suppository 10 mg(Linked Group 3) 10 mg, Rectal, DAILY PRN, Starting on Fri01/09/24 at 1546, Until Fri01/09/24 at 2212, Constipation, Give if no BM within last 24 hr and rectal fullness is reported or assessed. Give concomitantly with any scheduled bowel medications ordered. , Routine bisacodyl EC (Dulcolax) tablet 10 mg(Linked Group 3) 10 mg, Oral, 2 TIMES DAILY PRN, Starting on Fri01/09/24 at 1546, Until Fri01/09/24 at 2212, Constipation, Give if no BM after 24 hr after prior interventions. BM expected in 6-8 hours. If BM desired sooner, use next ordered agent. Give concomitantly with any scheduled bowel medications ordered., Routine lactulose (Chronulac) (0.67 gram/mL) oral liquid 20 g(Linked Group 3) 20 g, Oral, DAILY PRN, Starting on Fri01/09/24 at 1546, Until Fri01/09/24 at 2212, Constipation, Give if no BM 24 hr after prior interventions or if BM is desired within 2 hr. Give concomitantly with any scheduled bowel medications ordered, Routine lactulose (Chronulac) (0.67 gram/mL) oral liquid 20 g(Linked Group 3) 20 g, Oral, DAILY PRN, Starting on Fri01/09/24 at 1546, Until Fri01/09/24 at 2212, Constipation, Give an additional (2nd) dose of lactulose 2 hr after 1st dose if still no BM. Disregard if 1st dose of lactulose not ordered. Give concomitantly with any scheduled bowel medications ordered. , Routine magnesium citrate oral liquid 296 mL(Linked Group 3) 296 mL, Oral, ONCE PRN, 1 dose, Starting on Fri01/09/24 at 1546, Until Fri01/09/24 at 2212, Constipation, Give if no BM 2 hr after previous interventions. If 2 hr after mag citrate there is still no BM, see order for tap water enema, if placed. Give concomitantly with any scheduled bowel medications ordered., Routine naloxone (Narcan) (0.4 mg/mL) injection 0.2-2 mg 0.2-2 mg, Intravenous, ONCE PRN, 1 dose, Starting on Fri01/06/24 at 0823, Until Fri01/09/24 at 2212, Opioid Reversal, Start with 0.2mg via intravenous. May repeat 0.2 mg every 2-3 minutes until patient is responsive or vital signs improve to maximum of 2 mg total. If ineffective, call HERT team [phone]., Routine polyethylene glycoL (Miralax) packet 17 g(Linked Group 3) 17 g, Oral, DAILY PRN, Starting on Fri01/09/24 at 1546, Until Fri01/09/24 at 2212, Constipation, Give if no BM within last 24 hr. Give concomitantly with any scheduled bowel medications ordered. , Routine QUEtiapine (SEROquel) tablet 25 mg 25 mg, Oral, 3 TIMES DAILY PRN, Starting on Fri01/03/24 at 1736, Until Fri01/09/24 at 2212, Agitation, for agitation, now, Routine Linked Groups Order Group 1: nicotine (Nicoderm CQ) 21 mg/24 hr patch 21 mgJump to med 21 mg (1 patch), Transdermal, Administer over 24 Hours, DAILY, First dose (after last modification) on Fri01/07/24 at 0900, Until Discontinued, Apply new patch to clean, dry, hair-free skin on the upper body or upper outer arm; each patch should be applied to a different site., Routine And nicotine (Nicoderm CQ) 21 mg/24 hr patch Patch VerificationJump to med Transdermal, 2 TIMES DAILY, First dose (after last modification) on Fri01/06/24 at 2215, Until Discontinued, Verify nicotine 21 mg/24 hr patch Group 2: nicotine (Nicoderm CQ) 21 mg/24 hr patch 21 mg (COMPLETED) 21 mg (1 patch), Transdermal, Administer over 24 Hours, ONCE, 1 dose, On Fri01/06/24 at 2230, Apply new patch to clean, dry, hair-free skin on the upper body or upper outer arm; each patch should be applied to a different site., Routine And nicotine (Nicoderm CQ) 21 mg/24 hr patch Patch VerificationJump to med Transdermal, 2 TIMES DAILY, First dose on Fri01/07/24 at 0900, Until Discontinued, Verify nicotine 21 mg/24 hr patch Group 3: polyethylene glycoL (Miralax) packet 17 gJump to med 17 g, Oral, DAILY PRN, Starting on Fri01/09/24 at 1546, Until Fri01/09/24 at 2212, Constipation, Give if no BM within last 24 hr. Give concomitantly with any scheduled bowel medications ordered. , Routine And bisacodyL (Dulcolax) suppository 10 mgJump to med 10 mg, Rectal, DAILY PRN, Starting on Fri01/09/24 at 1546, Until Fri01/09/24 at 2212, Constipation, Give if no BM within last 24 hr and rectal fullness is reported or assessed. Give concomitantly with any scheduled bowel medications ordered. , Routine And bisacodyl EC (Dulcolax) tablet 10 mgJump to med 10 mg, Oral, 2 TIMES DAILY PRN, Starting on Fri01/09/24 at 1546, Until Fri01/09/24 at 2212, Constipation, Give if no BM after 24 hr after prior interventions. BM expected in 6-8 hours. If BM desired sooner, use next ordered agent. Give concomitantly with any scheduled bowel medications ordered., Routine And lactulose (Chronulac) (0.67 gram/mL) oral liquid 20 gJump to med 20 g, Oral, DAILY PRN, Starting on Fri01/09/24 at 1546, Until Fri01/09/24 at 2212, Constipation, Give if no BM 24 hr after prior interventions or if BM is desired within 2 hr. Give concomitantly with any scheduled bowel medications ordered, Routine And lactulose (Chronulac) (0.67 gram/mL) oral liquid 20 gJump to med 20 g, Oral, DAILY PRN, Starting on Fri01/09/24 at 1546, Until Fri01/09/24 at 2212, Constipation, Give an additional (2nd) dose of lactulose 2 hr after 1st dose if still no BM. Disregard if 1st dose of lactulose not ordered. Give concomitantly with any scheduled bowel medications ordered. , Routine And magnesium citrate oral liquid 296 mLJump to med 296 mL, Oral, ONCE PRN, 1 dose, Starting on Fri01/09/24 at 1546, Until Fri01/09/24 at 2212, Constipation, Give if no BM 2 hr after previous interventions. If 2 hr after mag citrate there is still no BM, see order for tap water enema, if placed. Give concomitantly with any scheduled bowel medications ordered., Routine And Tap water enema (CANCELED) Routine, DAILY PRN, Starting on Fri01/09/24 at 1546, Until Specified, Give if no BM in at least 24 hr and all other ordered bowel regimen medications have been unsuccessful. Give concomitantly with any scheduled bowel medications ordered. documented in this encounter Care Teams Weigher And Grader Relationship Specialty Start Date End Date Adwoa Nixon MD [address] [place] [address] PCP - General 12/19/11 documented as of this encounter
--- OUTSIDE RECORDS SUMMARY | 2024-10-06 15:46 | XMS_ITS | Clinical Summary ---
Author Organization [facility] Address [facility] [place] [address] Care Team Providers Care Parts Sales Associate Name Role Phone Adwoa Nixon MD Primary Care Provider [phone] Allergies No known active allergies Medications Medication Sig Dispensed Refills Start Date End Date Status acetaminophen (Tylenol) 325 mg tablet Take 2 tablets by mouth every 6 hours as needed. 01/09/2024 Active methadone (Dolophine) 10 mg/mL oral concentrate Take 12 mLs by mouth daily. 01/10/2024 Active polyethylene glycoL (Miralax) 17 gram oral powder packet Take 17 g by mouth daily. 01/09/2024 Active QUEtiapine (SEROquel) 25 mg tablet Take 1 tablet by mouth 3 times daily as needed (for agitation). 01/09/2024 Active senna-docusate (Pericolace) 8.6-50 mg Tablet Take 2 tablets by mouth 2 times daily. Hold for loose stools 01/09/2024 Active nicotine (Nicoderm CQ) 21 mg/24 hr Patch 24 hr Change 1 patch on the skin daily. 01/10/2024 Active Active Problems Problem Noted Date Diagnosed Date Toxic encephalopathy 01/03/2024 DIFFICULT AIRWAY 07/10/2019 Narrowing of airway 07/10/2019 At risk for danger to others 07/09/2019 Agitation requiring sedation protocol 07/09/2019 Pneumonia due to Streptococcus pneumoniae 2018 Hypernatremia 07/09/2019 Respiratory failure with hypoxia 07/09/2019 Hyperactive behavior 07/09/2019 AMS (altered mental status) 07/05/2019 Depression 11/28/2011 ADHD (attention deficit hyperactivity disorder) 11/28/2011 Active smoker 11/28/2011 Herpes 11/28/2011 Social History Tobacco Use Types Packs/Day Years Used Date Smoking Tobacco: Every Day Cigarettes 1 16 Tobacco Cessation:Ready to Q uit: Yes; Counseling Given: Yes Comments:pt given smoking cessation packet Alcohol Use Standard Drinks/Week Comments No [...] place to sleep or slept in a retirement (including now)? No 01/06/2024 DH IPV Inpatient [...] on file Sexual Orientation Not on file Last Filed Vital Signs Vital Sign Reading [...] Mass Index 27.84 01/03/2024 1:19 AM EDT Plan of Treatment Health Maintenance Due Date Last Done Comments HIV screen 11/28/1997 Hepatitis C Screening 11/28/1997 Lipid Screening 11/28/1997 Hepatitis B vaccine (0-59 yrs) (1) 11/28/1998 Pneumococcal Vaccine: At-Ris k 5-49yrs (1 of 2 - PCV) 11/28/1998 Tetanus/Diphtheria/Pertussis Vaccines (1 - Tdap) 11/28/1998 Covid-19 Vaccine ( - 2023-2 5 season) 2024 Influenza (Flu) vaccine (1 o f 1 - Influenza standard series) 05/02/2024 Diabetes Screening (HgbA1C o r Glucose) 01/08/2027 01/09/2024, 01/08/2024, 01/07/2024, Additional history exists Medical Devices Implanted Type Area Hris Developer Device Identifier Shelf Expiration Date Model / Serial / Lot Mesh,Proloop, Kh,Xlg,2x1.6i n ([id number]) - [id number] Implanted:Qty : 1 on 12/05/2011 at [facility] IMPLANTS N/A: [facility] [employer] - [id number] 10/06/2014 [id number] / / [id number] Procedures Procedure Name Priority Date/Time Associated Diagnosis Comments BASIC METABOLIC PANEL Routine 01/09/2024 5:45 AM EDT from Last 3 Months or Most Recently Relevant to Health Maintenance Results * (ABNORMAL) Basic Metabolic Panel (non-fasting) (01/09/2024 5:45 AM EDT) Glucose 115 65 - 199 mg/dL [facility] Comment:Diabetes: >=200 mg/d L plus symptoms Blood Urea Nitrogen 14 10 - 20 mg/dL [facility] Creatinine 0.78(L) 0.80 - 1.50 mg/dL [facility] Sodium 140 135 - 145 mmol/L [facility] Potassium 4.5 3.5 - 5.0 mmol/L [facility] Comment: Please note: ??Patients with WBC >100,000 may have falsely elevated Potassium levels. ??For accurate Potassium quantification in these patients send serum separator tube (gold top) for subsequent determinations. ??Contact the Clinical Chemistry Laboratory if there are any questions. Chloride 103 98 - 107 mmol/L [facility] Carbon Dioxide 29 22 - 31 mmol/L [facility] Anion Gap 8 5 - 15 mmol/L [facility] Calcium 9.3 8.5 - 10.5 mg/dL [facility] Est Glomerular Filtration Rate 113 >=60 mL/min/1. 73 m?? [facility] Comment: This patient's estimated GFR was [...] In Lab Damien Gonzalez MD CHEMISTRY ORDERABLES [facility] [place] [address] from Last 3 Months or Most Recently Relevant to Health Maintenance Advance Directives * Attempt Cardiopulmonary Resuscitation - Inpatient (Latest Code Status on File) Date Activated Date Inactivated Comments 01/03/2024 1:17 AM 01/09/2024 10:17 PM Question Answer Comments Code Status decision made by: Patient Content of discussion: arrived intubated following intentional overdose * Full Code Date Activated Date Inactivated Comments 07/05/2019 2:00 PM 07/15/2019 5:09 PM Question Answer Comments Does patient have capacity to make decision: No Code Status decision being made per: Attending o f Record * Full Code Date Activated Date Inactivated Comments 12/10/2011 1:52 AM 12/10/2011 2:07 PM * Full Code Date Activated Date Inactivated Comments 12/05/2011 9:10 AM 12/05/2011 3:37 PM Question Answer Comments Order Status: Initial Order Does patient have decision m aking capacity? Yes, Order is based on Patients wishes. Care Teams Parts Sales Associate Relationship Specialty Start Date End Date Adwoa Nixon MD [address] [place] [address] PCP - General 12/19/11
--- OUTSIDE RECORDS SUMMARY | 2024-10-06 15:46 | XMS_ITS | Encounter Summary ---
Author Organization [facility] Address [facility] [place] [address] Care Team Providers Care Steel Tester Name Role Phone Adwoa Nixon MD Primary Care Provider [phone] Encounter Details Date Type Department Care Team (Late st Contact Info) Description 01/02/2024 10:00 PM EDT Ancillary Procedure Radiology Library at [facility] [place] [id number] Adwoa Nixon MD [facility] [address] [facility] [address] [place] [address] Social History Tobacco Use Types Packs/Day Years Used Date Smoking Tobacco: Every Day Cigarettes 1 16 Comments:pt given smoking ce ssation packet Alcohol Use Standard Drinks/Week Comments No 0 (1 standard drink = 0.6 oz pur e alcohol) Sex and Gender Information Value Date Recorded Sex Assigned at Not on file Gender Identity Not on file Sexual Orientation Not on file documented as of this encounter Plan of Treatment Not on file documented as of this encounter Procedures Procedure Name Priority Date/Time Associated Diagnosis Comments FILM LIBRARY STORAGE ONLY DX CHEST Routine 01/02/2024 9:58 PM EDT documented in this encounter Results * Film Library- Storage Only DX Chest (01/02/2024 9:58 PM EDT) Narrative RAD - 01/02/2024 9:58 PM EDT This exam is auto-finalizing. It's purpose is for storage only. Adwoa Nixon MD IM FILM LIBRARY ORD ERABLES [place], [place] documented in this encounter Visit Diagnoses Not on filedocumented in this encounter Care Teams Steel Tester Relationship Specialty Start Date End Date Adwoa Nixon MD [address] [place] [address] PCP - General 12/19/11 documented as of this encounter
--- OUTSIDE RECORDS SUMMARY | 2024-10-06 15:46 | XMS_ITS | Encounter Summary ---
Author Organization [facility] Address [facility] [address] Care Team Providers Care Animation Artist Name Role Phone Adwoa Nixon MD Primary Care Provider [phone] Encounter Details Date Type Department Care Team (Late st Contact Info) Description 01/02/2024 10:05 PM EDT Ancillary Procedure Radiology Library at [facility] [place] [phone] Adwoa Nixon MD [facility] [address] [facility] [address] [place] [address] Social History Tobacco Use Types Packs/Day Years [...] Nixon MD IM FILM LIBRARY ORD ERABLES [place], [place] documented in this encounter Visit Diagnoses Not on filedocumented in this encounter Care Teams Animation Artist Relationship Specialty Start Date End Date Adwoa Nixon MD [address] [place] [address] PCP - General 12/19/11 documented as of this encounter
--- OUTSIDE RECORDS SUMMARY | 2024-10-06 15:46 | XMS_ITS | Encounter Summary ---
Author Organization [facility] [place] [address] Care Team Providers Care Water Inspector Name Role Phone Adwoa Nixon MD Primary Care Provider [phone] Reason for Visit * Auth/Cert (Routine) Specialty Diagnoses / Procedures Referred By Contac t Referred To Contact Diagnoses OVERDOSE Procedures [facility] Referral ID Status Reason Start Date Expiration Date Visits Re quested Visits Authorized [id number] 1 1 Encounter Details Date Type Department Care Team (Latest Contact Info) Description 01/03/2024 12:15 AM EDT - 01/03/2024 1:30 AM EDT Hospital [place] [address] Apolinar Blanchard MD [facility] [place] [address] Discharge Disposition: Home Social History Tobacco Use Types Packs/Day Years [...] no 01/04/2024 Feels Threatened by Someone no 0512/2023 Feels Unsafe at Home or Work/School no 01/04/2024 Physical Signs of Abuse Present no 01/04/2024 Sex and Gender Information Value Date Recorded Sex Assigned at Not on file Gender Identity Not on file Sexual Orientation Not on file documented as of this encounter Medications at Time of Discharge [...] 1 patch on the skin daily. 01/10/2024 thiamine (THIAMINE) Take 1 tablet by mouth daily. 30 tablet 07/15/2019 01/09/2024 divalproex (DEPAKOTE) 250 mg Tablet, Delayed Release (E.C.) Take 1 tablet by mouth 2 times daily. 60 tablet 07/15/2019 01/09/2024 gabapentin (NEURONTIN) 300 mg Capsule Take 1 capsule by mouth 3 times daily. 90 capsule 07/15/2019 01/09/2024 documented as of this encounter Plan of Treatment Not on file documented as of this encounter Visit Diagnoses Not on filedocumented in this encounter Care Teams Water Inspector Relationship Specialty Start Date End Date Adwoa Nixon MD [facility] [address] [place] [address] PCP - General 12/19/11 documented as of this encounter
--- OUTSIDE RECORDS SUMMARY | 2024-10-06 15:47 | XMS_ITS | Encounter Summary ---
Author Organization [facility] Address [facility] [place] [address] Care Team Providers Care Political Consultant Name Role Phone Adwoa Nixon MD Primary Care Provider [phone] Encounter Details Date Type Department Care Team (Late st Contact Info) Description 07/05/2019 1:05 PM EST Ancillary Procedure Radiology Library at [facility] [place] [phone] Adwoa Nixon MD [address] [place] [address] Social History Tobacco Use Types Packs/Day Years [...] FILM LIBRARY STORAGE ONLY DX CHEST Routine 07/05/2019 1:01 PM EST documented in this encounter Results * Film Library- Storage Only DX Chest (07/05/2019 1:01 PM EST) Narrative [facility] - 07/05/2019 1:01 PM EST This exam is auto-finalizing. It's purpose is for storage only. Adwoa Nixon MD IMG FILM LIBRARY ORD ERABLES [facility] [place], [place] documented in this encounter Visit Diagnoses Not on filedocumented in this encounter Care Teams Political Consultant Relationship Specialty Start Date End Date Adwoa Nixon MD [facility] [address] [place] [address] PCP - General 12/19/11 documented as of this encounter
--- OUTSIDE RECORDS SUMMARY | 2024-10-06 15:47 | XMS_ITS | Encounter Summary ---
Author Organization [facility] Address [facility] [address] Care Team Providers Care Junior Art Director Name Role Phone Adwoa Nixon MD Primary Care Provider [phone] Encounter Details Date Type Department Care Team (Late st Contact Info) Description 07/03/2019 12:05 AM EDT Ancillary Procedure Radiology Library at [facility] [place] [phone] Adwoa Nixon MD [address] [facility] 1 [place] [address] Social History Tobacco Use Types Packs/Day Years [...] Associated Diagnosis Comments FILM LIBRARY STORAGE ONLY CT HEAD AND SPINE Routine 07/03/2019 12:05 AM EDT documented in this encounter Results * Film Library- Storage Only CT Head And Spine (07/03/2019 12:05 AM EDT) Narrative [facility] - 07/05/2019 12:51 PM EST This exam is auto-finalizing. It's purpose is for storage only. Adwoa Nixon MD IM FILM LIBRARY ORD ERABLES [place], [place] documented in this encounter Visit Diagnoses Not on filedocumented in this encounter Care Teams Junior Art Director Relationship Specialty Start Date End Date Adwoa Nixon MD [address] [place] [address] PCP - General 12/19/11 documented as of this encounter
--- OUTSIDE RECORDS SUMMARY | 2024-10-06 15:47 | XMS_ITS | Encounter Summary ---
Author Organization [facility] Address [facility] [place] [address] Care Team Providers Care Supervisor Sample Name Role Phone Adwoa Nixon MD Primary Care Provider [phone] Encounter Details Date Type Department Care Team (Late st Contact Info) Description 07/03/2019 Ancillary Procedure Radiology Library at [facility] [place] [phone] Adwoa Nixon MD [facility] [address] [facility] 1 [place] [address] Social History Tobacco Use Types Packs/Day Years [...] FILM LIBRARY STORAGE ONLY DX CHEST Routine 07/03/2019 12:00 AM EDT documented in this encounter Results * Film Library- Storage Only DX Chest (07/03/2019 12:00 AM EDT) Narrative RAD - 07/05/2019 12:50 PM EST This exam is auto-finalizing. It's purpose is for storage only. Adwoa Nixon MD IMG FILM LIBRARY ORD ERABLES DH RAD [place], [place] documented in this encounter Visit Diagnoses Not on filedocumented in this encounter Care Teams Supervisor Sample Relationship Specialty Start Date End Date Adwoa Nixon MD [address] [place] [address] PCP - General 12/19/11 documented as of this encounter
--- OUTSIDE RECORDS SUMMARY | 2024-10-06 15:47 | XMS_ITS | Encounter Summary ---
Author Organization [facility] Address [facility] [place] [address] Care Team Providers Care Animal Bounty Hunter Name Role Phone Adwoa Nixon MD Primary Care Provider [phone] Encounter Details Date Type Department Care Team (Late st Contact Info) Description 07/05/2019 Telephone [place] [address] Dyan Cool, [facility] [place] [address] Social History Tobacco Use Types Packs/Day Years [...] on filedocumented in this encounter Care Teams Animal Bounty Hunter Relationship Specialty Start Date End Date Adwoa Nixon MD [facility] [address] [place] [address] PCP - General 12/19/11 documented as of this encounter
--- OUTSIDE RECORDS SUMMARY | 2024-10-06 15:47 | XMS_ITS | Encounter Summary ---
Author Organization [facility] Address [facility] [place] [address] Care Team Providers Care Instructor Of Education Name Role Phone Adwoa Nixon MD Primary Care Provider [phone] Encounter Details Date Type Department Care Team (Late st Contact Info) Description 07/03/2019 12:10 AM EDT Ancillary Procedure Radiology Library at [facility] [place] [phone] Adwoa Nixon MD [address] [facility] 1 [place] [address] Social History Tobacco Use Types Packs/Day Years [...] Diagnosis Comments FILM LIBRARY STORAGE ONLY CT CHEST ABDOMEN PELVIS Routine 07/03/2019 12:10 AM EDT documented in this encounter Results * Film Library- Storage Only CT Chest Abdomen Pelvis (07/03/2019 12:10 AM EDT) Narrative [facility] - 07/05/2019 12:52 PM EST This exam is auto-finalizing. It's purpose is for storage only. Adwoa Nixon MD IM FILM LIBRARY ORD ERABLES [place], [place] documented in this encounter Visit Diagnoses Not on filedocumented in this encounter Care Teams Instructor Of Education Relationship Specialty Start Date End Date Adwoa Nixon MD [address] [place] [address] PCP - General 12/19/11 documented as of this encounter
--- OUTSIDE RECORDS SUMMARY | 2024-10-06 15:47 | XMS_ITS | Encounter Summary ---
[place] [address] Care Team Providers Care Chairman & Co Founder Name Role Phone Adwoa Nixon MD Primary Care Provider [phone] Encounter Details Date Type Department Care Team (Latest Contact Info) Description 07/05/2019 3:54 PM EST - 07/05/2019 5:18 PM [facility] Hospital [place] [phone] Razia Dubose MD Discharge Disposition: Home Social History Tobacco Use [...] Sig Dispensed Refills Start Date End Date folic acid (FOLVITE) 1 mg Tablet Take 1 tablet by mouth daily for 30 days. 30 tablet 07/16/2019 08/15/2019 thiamine (THIAMINE) Take 1 tablet by mouth daily. 30 tablet 07/15/2019 01/09/2024 divalproex (DEPAKOTE) 250 mg Tablet, Delayed Release (E.C.) Take 1 tablet by mouth 2 times daily. 60 tablet 07/15/2019 01/09/2024 gabapentin (NEURONTIN) 300 mg Capsule Take 1 capsule by mouth 3 times daily. 90 capsule 07/15/2019 01/09/2024 OXYcodone-acetaminophen (PERCOCET) 5-325 mg per tablet Take 1 tablet by mouth every 4 hours as needed for Pain. 10 tablet 0 12/05/2011 07/15/2019 documented as of this encounter Plan of Treatment Not on file documented as of this encounter Visit Diagnoses Not on filedocumented in this encounter Care Teams Chairman & Co Founder Relationship Specialty Start Date End Date Adwoa Nixon MD [address] [place] [address] PCP - General 12/19/11 documented as of this encounter
--- OUTSIDE RECORDS SUMMARY | 2024-10-06 15:47 | XMS_ITS | Encounter Summary ---
Author Organization [facility] Address [facility] [place] [address] Care Team Providers Care Triple Valve Tester Name Role Phone Adwoa Nixon MD Primary Care Provider [phone] Encounter Details Date Type Department Care Team (Late st Contact Info) Description 07/04/2019 Ancillary Procedure Radiology Library at [facility] [place] [phone] Adwoa Nixon MD [facility] [address] [place] [address] Social History Tobacco Use Types Packs/Day Years [...] FILM LIBRARY STORAGE ONLY DX CHEST Routine 07/04/2019 12:00 AM EDT documented in this encounter Results * Film Library- Storage Only DX Chest (07/04/2019 12:00 AM EDT) Narrative RAD - 07/05/2019 1:01 PM EST This exam is auto-finalizing. It's purpose is for storage only. Adwoa Nixon MD IMG FILM LIBRARY ORD ERABLES DH RAD [place], [place] documented in this encounter Visit Diagnoses Not on filedocumented in this encounter Care Teams Triple Valve Tester Relationship Specialty Start Date End Date Adwoa Nixon MD [address] [place] [address] PCP - General 12/19/11 documented as of this encounter
--- OUTSIDE RECORDS SUMMARY | 2024-10-06 15:47 | XMS_ITS | Encounter Summary ---
Author Organization [facility] Address [facility] [place] [address] Care Team Providers Care Electronic Operator Name Role Phone Adwoa Nixon MD Primary Care Provider [phone] Encounter Details Date Type Department Care Team (Late st Contact Info) Description 07/03/2019 12:15 AM EDT Ancillary Procedure Radiology Library at [facility] [place] [phone] Adwoa Nixon MD [address] [facility] 1 [place] [address] Social History Tobacco Use Types Packs/Day Years [...] Diagnosis Comments FILM LIBRARY STORAGE ONLY DX LOWER EXTREMITY Routine 07/03/2019 12:15 AM EDT documented in this encounter Results * Film Library- Storage Only DX Lower Extremity (07/03/2019 12:15 AM EDT) Narrative [facility] - 07/05/2019 12:54 PM EST This exam is auto-finalizing. It's purpose is for storage only. Adwoa Nixon MD [facility] FILM LIBRARY ORD ERABLES [place], [place] documented in this encounter Visit Diagnoses Not on filedocumented in this encounter Care Teams Electronic Operator Relationship Specialty Start Date End Date Adwoa Nixon MD [address] [place] [address] PCP - General 12/19/11 documented as of this encounter
--- OUTSIDE RECORDS SUMMARY | 2024-10-06 15:47 | XMS_ITS | Encounter Summary ---
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 with the documented History, Physical findings, Assessment and Plan ofcare. I have examined the patient myself and personally reviewed all studies. Additions to the history, physical, assessment and plan include the following: Mentation improving; continuing Depakote per psychiatry recommendations. This is the 4th day of high dose thiamine supplementation; likely drop to 250 mg daily starting tomorrow. Will discuss timing of resuming home clonidine/focalin with psychiatry. Likely resume gabapentin on discharge pending further clearing of mental status. On D2 of suboxone initiation; will need to coordinate outpatient follow up. Has met IPI for further evaluation and management of acute metabolic encephalopathy Sha Magaña MD * Shelbi Wang RN - 07/13/2019 3:48 PM EST Images from the original note were not included. Weekly PICC Line Dressing Change * Gracy Talley MD - 07/13/2019 8:09 AM EST MICU STAFF PROGRESS NOTE Critical Care Medicine Author: Gracy Talley MD Patient seen and examined on critical care rounds. INTERVAL EVENTS: Delirium and agitation continue but are improved. Refeeding continues with low phos/Mg/K. Active problems: 1. Altered mental status 2. Hypokalemia 3. Hypomagnesemia 4. Hypophosphatemia 5. Leukocytosis ROS: All other ROS are unremarkable except those mentioned above in interval events. Exam: Last value Range last 24 hrs Temperature Temp: 37.2 ??C (99 ??F) Temp: [36.8 ??C (98.2 ??F)-37.8 ??C (100 ??F)] Heart Rate Heart Rate: 61 Heart Rate: [54-91] Blood Pressure BP: 119/60 BP: (119-161)/(60-133) Respiratory Rate Resp: (!) 31 Resp: [17-40] SpO2 SpO2: 97 % SpO2: [94 %-99 %] Art BP BP (Arterial Line): -- Awake and interactive, can tell me where he is and year S1, S2, no murmurs, rubs or gallops CTA b/l Soft, non tender, non distended Good peripheral pulses, no edema Ventilator: On RA Labs/studies:Last 3 wbc, hgb, hct plt Recent Labs 07/13/19 0040 07/12/19 0035 07/11/19 003 WBC 15.6* 9.8* 8.7 HGB 13.5* 11.9* 12.0* HCT 38.4* 35.3* 35.5* PLATELET 278 226 208 Last 3 Lytes Recent Labs 07/13/19 0515 07/13/19 0040 07/12/19 1800 07/12/19 0035 07/11/19 0552 NA -- 140 -- -- 142 141 K 3.9 3.4* 3.5 < > 2.8* 4.5 CL -- 101 -- -- 103 104 CO2 -- 25 -- -- 27 28 BUN -- 15 -- -- 20 22* CREATININE -- 0.64* -- -- 0.83 0.69* < > = values in this interval not displayed. Last 3 LFTs Recent Labs 07/05/192039 AST 27 ALT 10 ALKPHOS 50 BILITOT 0.2 Last Ca, Mg, Phos Recent Labs 07/13/1939 CALCIUM 9.2 PHOS 2.4* Last 3 Coags No results for input(s): PT, INR, PTT in the last 168 hours. Last 3 ProBNP, Trop, CK No results for input(s): CK, TROPONINT, PROBNP in the last 168 hours. ASSESSMENT, MANAGEMENT, and DECISION MAKIN. Altered mental status: His mental status has cleared significantly; could consider weaning antipsychotics as his behavior and mental status have improved. - Receiving a phenobarbitol load, which will finish today - Continue haldol - Change seroquel to 75 mg, 150 mg (QTC normal) 2. Leukocytosis: Loose stools. Is coughing today. Strep PNA was treated with CTX that ended two days ago. Possibly aspirating. - C. Difficile sent - UA, CXR - Speech/swallow evaluation, HOB 30 degrees, good oral care 3. Elecrolyte abnormalities: Refeeding syndrome. Have been aggressively repleting lytes while holding tube feeds--tube feeds were restarted. - Replete Mg, phos, K+ - NPO for now, will be evaluated by speech 4. S. pneumonaie pneumonia: Resolved, treated with CTX. IS PATIENT CRITICALLY ILL ? Is there a high potential of sudden, clinically significant, or life threatening deterioration? No Is there a need for direct personal assessment and management to treat/prevent multiple vital organfailure/deterioration? Yes If this patient is not critically ill, I certify the patient requires continued in-patient hospitalization for continued agitation. PATIENT IS CRITICALLY ILL WITH THESE DIAGNOSES BEING MANAGED BY [facility]CS TEAM: Encephalopathy Acute Hypokalemia I personally performed 45 minutes of aggregate critical care time exclusive of procedures and teaching. This includes time spent during direct patient evaluation and reassessment, interpreting diagnostic tests, directing life and/or organ supporting interventions and documentation on the unit. Gracy Talley MD * Meena Upton, RD - 07/12/2019 1:11 PM EST Nutrition Progress Note Follow-up Tube Feeding Evaluation- Nutrition Services Reason for intervention: Follow up Recommendation(s)/Plan: The past 3 days pt has averaged 42 % of goal volumes for enteral feeds. Pt now extubated w/ bridled DHT. Pt requiring KPhos; suggest hold TFs until serum phos > 2.0 Now that pt is extubated off propofol, new TF recommendations are: Promote w/ goal of 95 ml/hr. This will provide 1900 kcal, 117 grams protein, 1594 ml free water apq665% USRDIs in 1900 ml formula. This is calculated to allow for time off TFs for meds, procedures, etc. If pt is transferred out to floor, TF gaol would be Promote @ 80 ml/hr X 24 hrs to provide similar nutrition as above. Suggest new wt. Current wt of 65.8 kg reflects a 14.3 kg loss over 24 hrs. Pt reports UBW ~ 82 kg Please continue to follow electrolytes & replete as needed. I was able to discuss plan with provider Heather Almeida APRN at [facility]. Akshat Serrano is a 38 y.o. male Principal Problem: AMS (altered mental status) Active Problems: At risk for danger to others Agitation requiring sedation protocol Pneumonia due to Streptococcus pneumoniae Hypernatremia Respiratory failure with hypoxia Hyperactive behavior DIFFICULT AIRWAY Narrowing of airway Estimated body mass index is 22.77 kg/m?? as calculated from the following: Height as of this encounter: 170 cm (5' 6.93). Weight as of this encounter: 65.8 kg (145 lb 1 oz). Admit Wt: 84.1 kg Estimated Needs: 1900 Calories and 100 grams protein Type of access: DHT I/O last 3 completed shifts: In: 1992 [I.V.:964; Other:180; NG/GT:608; IV Piggyback:241] Out: 1949 [Urine:1950] Average daily TF intake (past 3 days): 293 ml versus daily goal of 700 ml Last BM:07/11/19 Residuals: wnl Infusion Meds: ??? tube feeding diet 35 mL/hr at 07/12/19 0800 ??? sodium chloride 0.9% 10 mL/hr (07/10/19 0600) ??? sodium chloride 0.9% Stopped (07/10/19 0600) Scheduled Meds: ??? enoxaparin 40 mg Subcutaneous Nightly ??? magnesium sulfate 2 g Intravenous Once ??? sodium phosphate 15 mmol Intravenous Once ??? PHENobarbital 15.6 mg Intravenous Q12H Followed by ??? [START ON 07/13/2019] PHENobarbital 7.8 mg Intravenous Q12H ??? folic acid 1 mg Oral Daily ??? thiamine 500 mg Per NG tube TID ??? protein powder 2 Scoop Per NG tube 4 Times Daily ??? QUEtiapine 50 mg Oral Q6H ??? sodium chloride 0.9 % (flush) 5 mL Intravenous BID ??? insulin lispro 1-4 Units Subcutaneous Q4H MARIBELL PRN Meds: docusate sodium AND sennosides, potassium chloride in water OR potassium chloride in water OR potassium chloride in water, haloperidol lactate, ipratropium-albuterol, atropine, potassium chloride, sodium bicarbonate, sodium chloride 0.9 % (flush), lidocaine, bisacodyl, Glucose 40% oral gel OR dextrose 10% OR glucagon (human recombinant) Lab Results Component Value Date NA 142 07/12/2019 K 2.9 (CRIT) 07/12/2019 CL 103 07/12/2019 CO2 27 07/12/2019 BUN 20 07/12/2019 CREATININE 0.83 07/12/2019 GLUCOSE 90 07/12/2019 MAGNESIUM 0.81 07/12/2019 CALCIUM 8.8 07/12/2019 PHOS 2.9 07/12/2019 AST 27 07/05/2019 ALT 10 07/05/2019 ALKPHOS 50 07/05/2019 BILITOT 0.2 07/05/2019 TRIG 133 07/07/2019 Current Tube Feeding: Promote with a goal rate of 35 ml per hour plus 9 scoop(s) of protein powder daily. Total goal volume daily is 700 ml.. This provides:925 kcal, 97 g protein, 587 ml free water + 450 ml from mixing protein powder, 70 % RDIs for vitamins and minerals. [facility] Pager # [phone] * Gracy Talley MD - 07/12/2019 8:15 AM EST MICU STAFF PROGRESS NOTE Critical Care Medicine Author: Gracy Talley MD Patient seen and examined on critical care rounds. INTERVAL EVENTS: Extubated yesterday, no airway issues. Got decadron for airway swelling. Continues to require seroquel and haldol for agitation. Active problems: 1. Altered mental status 2. Hypokalemia 3. Hypomagnesemia 4. Hypophosphatemia ROS: All other ROS are unremarkable except those mentioned above in interval events. Exam: Last value Range last 24 hrs Temperature Temp: 37 ??C (98.6 ??F) Temp: [36.7 ??C (98.1 ??F)-37.4 ??C (99.3 ??F)] Heart Rate Heart Rate: 72 Heart Rate: [54-97] Blood Pressure BP: 134/65 BP: (109-187)/(54-102) Respiratory Rate Resp: 22 Resp: [15-29] SpO2 SpO2: 96 % SpO2: [92 %-100 %] Art BP BP (Arterial Line): -- Awake and not interactive S1, S2, no murmurs, rubs or gallops CTA b/l Soft, non tender, non distended Good peripheral pulses Ventilator: On RA Labs/studies:Last 3 wbc, hgb, hct plt Recent Labs 07/12/19 0035 07/11/19 0035 07/10/19 0405 WBC 9.8* 8.7 6.1 HGB 11.9* 12.0* 12.4* HCT 35.3* 35.5* 36.9* PLATELET 226 208 169 Last 3 Lytes Recent Labs 07/12/19 0035 07/11/19 0552 07/10/19 0405 NA 142 141 141 K 2.8* 4.5 4.5 CL 103 104 103 CO2 27 28 27 BUN 20 22* 20 CREATININE 0.83 0.69* 0.67* Last 3 LFTs Recent Labs 07/05/192039 AST 27 ALT 10 ALKPHOS 50 BILITOT 0.2 Last Ca, Mg, Phos Recent Labs 07/12/19 003 CALCIUM 8.8 PHOS 1.0* Last 3 Coags Recent Labs 07/05/192039 PT 12.9* INR 1.1 PTT 28 Last 3 ProBNP, Trop, CK No results for input(s): CK, TROPONINT, PROBNP in the last 168 hours. ASSESSMENT, MANAGEMENT, and DECISION MAKIN. Altered mental status: - Consult psych for management of issues - Receiving a phenobarbitol load - Continue haldol/seroquel - Will reevaluate later today for ability to move to the floor 2. S. pneumonaie pneumonia: Resolved, treated with CTX. 3. Elecrolyte abnormalities: - Replete Mg, phos, K+ - NPO for now, will be evaluated by speech IS PATIENT CRITICALLY ILL ? Is there a high potential of sudden, clinically significant, or life threatening deterioration? No Is there a need for direct personal assessment and management to treat/prevent multiple vital organfailure/deterioration? Yes If this patient is not critically ill, I certify the patient requires continued in-patient hospitalization for continued agitation. PATIENT IS CRITICALLY ILL WITH THESE DIAGNOSES BEING MANAGED BY [facility] TEAM: Encephalopathy Acute I personally performed 45 minutes of aggregate critical care time exclusive of procedures and teaching. This includes time spent during direct patient evaluation and reassessment, interpreting diagnostic tests, directing life and/or organ supporting interventions and documentation on the unit. Gracy Talley MD * Daya Salter, [facility] - 07/12/2019 7:39 AM EST Chart reviewed. Patient currently extubated but remains in restraints due to confusion/agitation. Patient continuesto have complex social situation and per documentation over the weekend, an Aunt Sadie ([phone]) contacted CC Team and stated she should be the surrogate decision maker. As we had previously not had a blood relative who could consistently be contacted, [facility] had identified Kia Peraza to be a surrogate decision maker if one were needed. [place] Surrogacy states that if someone higher on the heirarchy of surrogacy is located, they replace the existing surrogate. [facility] will reach out to Aunjose ramon Noel today to confirm her relationship with patient and her ability to be contacted in emergencies. Office of Case Management- Social Work Note MATA Maloney, [facility] Pager [phone] * Magaly Rodgers, RT - 07/11/2019 2:20 PM EST Current Settings: Nasal cannula (S) 2 L/min Airway: 7.0 @ 24 cm at the Teeth. Skin Integrity: WDL Ambu bag setup at HOB Breath Sounds: coarse Secretions: small yellow thick Assessment / Events: Received patient on PS 8 / +5 PEEP 30% FiO2 RR~9bpm Ve~5 Sating 95% Vt 536 EtCo2 48 Titrated to 25% +Cuff leak at 5cmh2o CPAP Passed SBT woke up with increased agitation/restless SBT for ~30min on CPAP 0/+5 25% Start SBT End of SBT Initiated ~720am with RASS -3 RR 17 27 Vt 400 533 Ve 5.9 12 SpO2 95 95 EtCo2 48 44 HR 42 79 BP 106/52 110/51 ~1130 extubated to room air with team present, no stridor, strong congested cough requiring oral suction, no attempt at phonation/not following commands. Sating well on 2L Plan: Inhaled Medications: albuterol & atrovent MDIs Q2PRN Spo2 goal >92% Encourage deep breath and cough, suction as needed * Jovanni Espinoza Jr., MD - 07/11/2019 1:57 PM EST Critical Care Attending Daily Progress Note Author JOVANNI ESPINOZA JR, MD Date 07/11/2019 I saw and examined this patient in the critical care unit. Active Problems 1. Acute mental status changes, improving 2. Acute hypoxemic respiratory failure, trial of extubation 3. Absent cuff leak, resolved 4. Pneumonia, organism not specified 5. Question polysubstance overdose / drug intoxication 6. Hyperactive delirium, improved Physical Exam General Critically ill, sedated, endotracheally intubated and mechanically ventilated Lungs Coarse (B) no wheeze Heart RR no M Abdomen Soft, BS(+) Extremities No C/C/E Neuro RASS -3 Vasoactive Infusions n/a Respiratory Support PSV 8/5 0.40 -> NC O2 Imaging No interval chest imaging Assessment, Management, and Decision Making 1. Acute hypoxemic respiratory failure, mechanically ventilated. Upper airway (posterior pharyngeal) resolved. Plan for extubation today. Noting prior difficult airway (at outside hospital) will be prepared to reintubate upon extubation. 2. Hold sedation; schedule haldol for anticipated behavior difficulties 3. Speech eval once extubated and waking up. 4. Routine ICU prophylaxis 5. Activity as tolerated 6. Full code Is this patient critically ill? Is there a high potential of sudden, clinically significant, or life threatening deterioration? Yes Is there a need for direct personal assessment and management to treat/prevent multiple vital organfailure/deterioration? Yes Patient is critically ill with these diagnoses being managed by the Critical Care Team: Delirium Unspecified Pneumonia Unspecified organism Respiratory Failure Acute with hypoxia Absent cuff leak IPI Certification I certify that I am a D-H credentialed attending provider with admitting privileges and that the patient meets or has met medical necessity to require an inpatient IPI level of care meeting a minimumof two midnights or is on the [facility] inpatient only procedure list (status C) due to: delivery of critical care services as outlined in assessment and plan above I personally performed 35 minutes of aggregate critical care time exclusive of procedures and teaching. This includes time spent during direct patient evaluation and reassessment, interpreting diagnostic tests, directing life and/or organ supporting interventions and documentation on the unit. --Melvin Espinoza MD * Antolin Nicholas, AIR QUALITY SPECIALIST - 07/11/2019 2:48 AM EST Zach Oden 38 y/o male Active Problems 1. Acute mental status changes 2. Acute hypoxemic respiratory failure, passed SBT 3. Absent cuff leak 4. Pneumonia, organism not specified 5. Question polysubstance overdose 6. Hyperactive delirium ?? AMV Protocol: Yes SBT Protocol: Yes SBT: Not performed, bradycardia Vent Settings: Servo I Ventilator Mode: PS/CPAP PEEP Set: 5 FiO2: 30 % PSV: 8 Ventilator Measurements: Resp: 11 Vt Spontaneous: 463 Ve: 5 SpO2: 96 % EtCO2: 48 mmHg Airway: 7.0 @ 25 cm at the Teeth. Skin Integrity: WDL IMPRESSION Low lung volumes with perihilar and lower lobe opacities that may represent any combination of atelectasis, aspiration pneumonitis and/or pneumonia. Emelia Mcallister at 07/10/2019 4:01 AM Breath Sounds: Vin Secretions: Minimal Assessment / Events / Plan of the Day: The pt was received on PSV and remained on this during the night. The SBT was held secondary to Bardycardia and the pts Airway issues. Will discuss weaning withthe team this AM. Antolin Nicholas RCP * Magaly Rodgers, RT - 07/10/2019 3:19 PM EST AMV Protocol: Yes SBT Protocol: Yes Current Settings: Mode: PS/CPAP PS: 8 cmH2O PEEP: 5 cmH2O FiO2: (S) 30 % Ventilator Measurements: RR: ~18 bpm Vt Spontaneous: 470 ml Ve: 8.4 L/min EtCO2: 44 mmHg SpO2: 97 % Airway: 7.0 @ 24 cm at the Teeth. Skin Integrity: WDL Occasional bite block in place Ambu bag setup and difficult airway sign at HOB Breath Sounds: coarse to clear Secretions: small pale yellow thin Assessment / Events: Received patient on Volume Control 550ml (adjusted to 530 for 8ml/kg) x 12bpm +8PEEP 40% FiO2 Sating 95% not triggering vent Ve~6 Pplat 20 titrated to 40% Audible cuff leak with CPAP 8cmH2o Transitioned to PS. Restless when awake, frequently moving around in bed not following commands, disconnecting from ventilator circuit and biting down on ETT. Plan: Inhaled Medications: albuterol & Atrovent MDIs Q2PRN SBT Monitor cuff leak Possible extubation tomorrow over aintree catheter * Jovanni Espinoza Jr., MD - 07/10/2019 1:55 PM EST Critical Care Attending Daily Progress Note Author JOVANNI ESPINOZA JR, MD Date 07/11/2019 I saw and examined this patient in the critical care unit. Active Problems 1. Acute mental status changes 2. Acute hypoxemic respiratory failure, passed SBT 3. Absent cuff leak, imnproving 4. Pneumonia, organism not specified 5. Question polysubstance overdose 6. Hyperactive delirium Physical Exam General Critically ill, sedated, endotracheally intubated and mechanically ventilated Lungs Coarse (B) no wheeze Heart RR no M Abdomen Soft, BS(+) Extremities No C/C/E Neuro RASS -3 Vasoactive Infusions Propofol, fentanyl Respiratory Support PSV 8/5 0.40 Imaging No interval chest imaging Assessment, Management, and Decision Making 1. Acute hypoxemic respiratory failure, mechanically ventilated. Plan for high risk extubation today, although he does not have a cuff leak. Initiate dexamethasone for upper airway edema. Direct visualization of the trachea (main jv to vocal cords) via bronchoscope pulling back ETT demonstratesminimal mucosal irregularities in the proximal trachea, but otherwise no abnormalities. Specifically, no tracheal web or site of tracheal stenosis. 2. Decrease sedation, add barbiturates. Plan for extubation in AM 3. Continue enteral nutritional support, hold at MN 4. Routine ICU prophylaxis 5. Activity as tolerated 6. Full code Is this patient critically ill? Is there a high potential of sudden, clinically significant, or life threatening deterioration? Yes Is there a need for direct personal assessment and management to treat/prevent multiple vital organfailure/deterioration? Yes Patient is critically ill with these diagnoses being managed by the Critical Care Team: Delirium Unspecified Pneumonia Unspecified organism Respiratory Failure Acute with hypoxia Absent cuff leak IPI Certification I certify that I am a D-H credentialed attending provider with admitting privileges and that the patient meets or has met medical necessity to require an inpatient IPI level of care meeting a minimumof two midnights or is on the [facility] inpatient only procedure list (status C) due to: delivery of critical care services as outlined in assessment and plan above I personally performed 35 minutes of aggregate critical care time exclusive of procedures and teaching. This includes time spent during direct patient evaluation and reassessment, interpreting diagnostic tests, directing life and/or organ supporting interventions and documentation on the unit. --Melvin Espinoza MD * Portillo Coreas, RT - 07/10/2019 4:27 AM EST AMV Protocol: Yes SBT Protocol: Yes SBT: on hold this morning (earnest / desats) Vent Settings: Servo I Ventilator Mode: VC Tidal Volume Set: 550 Resp Rate Set: 12 PEEP Set: (S) 8 FiO2: 50 % Ventilator Measurements: Resp: 12 Vt Exhaled: 532 PIP: 37 MAP: 13.5 Plateau Press: 21 Ve: 6.5 PEEP: 6 cmH20 SpO2: 98 % EtCO2: 41 mmHg Airway: 7.0 @ 24 cm at the Teeth. Skin Integrity: WDL Breath Sounds: clear Secretions: small thin clear Assessment / Events / Plan of the Day: Pt received this evening on PS 10/5 30% 0215 - 30 min after turn pt having frequent desats in low 80' - 70s. Pt is sedated well and comfortable. Suctioned a small amount of thin clear secretions. BS clear and equal. HR in low 50's - mid 40's. BP normal. Placed on VC 550 x 12 with peep increased to 8. FiO2 at 70% and peep increased to 10.PlatP at 21. Propofol decreased by RN. Team notified ABG 7.40/44/62/26 - P/F89 CXR - low lung volumes / atelectasis HR - continued to decrease- 39 - 41 EKG/ and ultra sound completed. FiO2 weaned to 50% and peep decreased to 8. Plan: transition back to PS when tolerated. RT CECILIO * Magaly Rodgers RT - 07/09/2019 3:33 PM EST AMV Protocol: Yes SBT Protocol: Yes Current Settings: Mode: (S) PS/CPAP PS: 14 cmH2O PEEP: 5 cmH2O FiO2: 30 % Ventilator Measurements: RR: ~8 bpm Vt Spontaneous: 500 ml (~7.5ml/kg) Ve: 4 L/min EtCO2: 46 mmHg SpO2: 92 % Airway: 7.0 @ 24 cm at the Teeth. Skin Integrity: WDL Bite block tube parnell in place Ambu bag setup and difficult airway sign at HOB Breath Sounds: clear Secretions: scant Assessment / Events: Received patient on PS 8 / +5 PEEP 25% FiO2 RR~25bpm Ve~6 Sating 96% Vt 440 EtCo2 51 Assessed for cuff leak during rounds, could not achieve audible leak until PEEP [id number] while on PSof 8cmH20. ~1340 similar pressures for cuff leak. Was bronched with ETT pulled back to visualize cords by teamwhich did not appear to have swelling or narrowing, however supraglottic swelling present. Placed on VC d/t sedation from procedure 530ml (8ml/kg) x 12bpm +5 30% ~1520 able to transition back to PS though recurring PS 14. Plan: Inhaled Medications: albtuerol & atrovent MDIs Q2PRN Remain intubated tonight. Possible extubation tomorrow over aintree catheter * Jovanni Espinoza Jr., MD - 07/09/2019 2:51 PM EST Critical Care Attending Daily Progress Note Author JOVANNI ESPINOZA JR, MD Date 07/09/2019 I saw and examined this patient in the critical care unit. Active Problems 1. Acute mental status changes 2. Acute hypoxemic respiratory failure, passed SBT 3. Absent cuff leak 4. Pneumonia, organism not specified 5. Question polysubstance overdose 6. Hyperactive delirium Physical Exam General Critically ill, sedated, endotracheally intubated and mechanically ventilated Lungs Coarse (B) no wheeze Heart RR no M Abdomen Soft, BS(+) Extremities No C/C/E Neuro RASS -3 Vasoactive Infusions Propofol, fentanyl Respiratory Support PSV 8/5 0.40 Imaging No interval chest imaging Assessment, Management, and Decision Making 1. Acute hypoxemic respiratory failure, mechanically ventilated. Plan for high risk extubation today, although he does not have a cuff leak. Initiate dexamethasone for upper airway edema. Direct visualization of the trachea (main jv to vocal cords) via bronchoscope pulling back ETT demonstratesminimal mucosal irregularities in the proximal trachea, but otherwise no abnormalities. Specifically, no tracheal web or site of tracheal stenosis. 2. Continue fentanyl and propofol for sedation. Hyperactive delirium appears to have lessened. 3. Goal RASS -2 to -3 4. Spot EEG on admission c/w toxic-metabolic encephalopathy 5. Continue enteral nutritional support 6. Routine ICU prophylaxis 7. Activity as tolerated 8. Full code Is this patient critically ill? Is there a high potential of sudden, clinically significant, or life threatening deterioration? Yes Is there a need for direct personal assessment and management to treat/prevent multiple vital organfailure/deterioration? Yes Patient is critically ill with these diagnoses being managed by the Critical Care Team: Delirium Unspecified Pneumonia Unspecified organism Respiratory Failure Acute with hypoxia Absent cuff leak IPI Certification I certify that I am a D-H credentialed attending provider with admitting privileges and that the patient meets or has met medical necessity to require an inpatient IPI level of care meeting a minimumof two midnights or is on the [facility] inpatient only procedure list (status C) due to: delivery of critical care services as outlined in assessment and plan above I personally performed 35 minutes of aggregate critical care time exclusive of procedures and teaching. This includes time spent during direct patient evaluation and reassessment, interpreting diagnostic tests, directing life and/or organ supporting interventions and documentation on the unit. --Melvin Espinoza MD * Ephraim Brown MD - 07/09/2019 2:16 PM EST ICU Progress Note During morning rounds, we assessed Akshat Serrano's airway for safety to extubate. It was determined that he did not have a cuff leak around his 7.0 ETT. The decision was made to visualize his airway using a bronchoscope. This was discussed with his current surrogate decision maker Kia. A time out was performed and 3cc's of 1% lidocaine was instilled through the endotracheal tube. He received a bolus of propofol and nimbex prior to procedure start. We inserted a pediatric bronchoscope through the endotracheal tube until we visualized the jv, which appeared normal and without evidence of edema or swelling. The cuff was desufflated and then we inspected the trachea and did not appreciate any friability, stenosis, or swelling. The endotracheal tube was then pulled back while visualizing the trachea with the bronchoscope until we were above the vocal cords. The vocal cords appeared to have thin white secretions but did not appear to be edematous. The ETT was then advanced back into the trachea and cuff insufflated. We then inserted the bronchoscope from above into the oropharynx and noted significant edema/swelling around the arytenoids vs. Epiglottis. It was difficultto differentiate the structures. No bleeding or hematoma was noted. The bronchoscope was removed. Patient did not suffer any untoward event. Dr. Espinoza was present and supervised the entirety of the procedure. Ephraim Brown MD ICU Fellow, [phone] * Daya Salter, PUBLIC HEALTH - 07/09/2019 1:28 PM EST Spoke to patient's 17 yo daughter, Ana Luisa, late yesterday afternoon. Ana Luisa reports that she is worried about patient and worries about the people who are visiting him. PUBLIC HEALTH expressed understanding and validated how difficult substance abuse is for families to witness. PUBLIC HEALTH explained that as Ana Luisa is not a legal adult, DH was still trying to reach a reliable adult family member that could be responsible for making decisions. Received call from Patient Relations stating that they received a call from [email or web address], patient's ex,who reported that patient had a visitor who took pictures and posted them on social media sites. Case discussed at length with automotive tire testing supervisor and Risk Management. We will implement searches on visitors. Also, as we have been unable to consistently reach patient's brother and there is no voicemail, Kia Peraza can serve as a surrogate decision maker Met with Kia Peraza as she visited patient and provided update on patient's condition and planof care Office of Case Management- Social Work Note MATA Maloney, [facility] Pager [phone] * Portillo Coeras, RT - 07/09/2019 4:46 AM EST AMV Protocol: Yes SBT Protocol: Yes SBT: Passed Vent Settings: Servo I Ventilator Mode: PS/CPAP PEEP Set: 5 FiO2: 25 % PSV: 8 Ventilator Measurements: Resp: 15 Vt Spontaneous: 454 Ve: 7.1 SpO2: 94 % EtCO2: 48 mmHg Airway: 7.0 @ 25 cm at the Teeth. Skin Integrity: WDL Breath Sounds: clear Secretions: moderate thin white Assessment / Events / Plan of the Day: Pt received on PS. He remained ton current support t/o the night. Becomes agitated and restless. Has bite block on do to biting . Passed SBT without difficulty . PORTILLO COREAS RT * Magaly Rodgers, RT - 07/08/2019 4:31 PM EST AMV Protocol: Yes SBT Protocol: Yes Current Settings: Mode: PS/CPAP PS: 10 cmH2O PEEP: 5 cmH2O FiO2: 21 % Ventilator Measurements: RR: ~12 bpm Vt Spontaneous: 450 ml Ve: 5.4 L/min EtCO2: 50 mmHg SpO2: 92 % Airway: 7.0 @ 25 cm at the Teeth. Skin Integrity: WDL Has bite block tube parnell Ambu bag setup at HOB Breath Sounds: clear Secretions: small thick pale yellow Assessment / Events: Received patient on PS 10 / +5 PEEP 30% FiO2 RR~14bpm Ve~5.3 Sating 97% Vt 168CiFw6 50 Titrated to 21% Very agitated/restless when more awake, reaching for ETT. Attempted to wean PS to 5 however ET high 50s and desat. Plan: Inhaled Medications: albuterol & atrovent MDIs Q2PRN SBT * Jovanni Espinoza Jr., MD - 07/08/2019 1:44 PM EST Critical Care Attending Daily Progress Note Author JOVANNI ESPINOZA JR, MD Date 07/08/2019 I saw and examined this patient in the critical care unit. Active Problems 1. Acute mental status changes 2. Acute hypoxemic respiratory failure 3. Pneumonia, organism not specified 4. Question polysubstance overdose 5. Hyperactive delirium Physical Exam General Critically ill, sedated, endotracheally intubated and mechanically ventilated Lungs Coarse (B) no wheeze Heart RR no M Abdomen Soft, BS(+) Extremities No C/C/E Neuro RASS -3 Vasoactive Infusions Propofol, fentanyl, midazolam Respiratory Support VC R12 0.21 Vt 520 PEEP 5 Imaging No interval chest imaging Assessment, Management, and Decision Making 1. Acute hypoxemic respiratory failure, mechanically ventilated. Continue empiric antibiotics for presumed bacterial pneumonia. Plan trial of extubation when mental status improves. 2. Behavioral control achieved and ketamine/precedex have been stopped. Plan to titrate off propofol onto continuous infusion fentanyl and PRN midazolam dosing (or continuous infusion If needed.) Ideally will plan trial of extubation tomorrow. 3. Goal RASS -2 to -3 4. Spot EEG c/w toxic-metabolic encephalopathy 5. Continue enteral nutritional support 6. Routine ICU prophylaxis 7. Activity as tolerated 8. Full code Is this patient critically ill? Is there a high potential of sudden, clinically significant, or life threatening deterioration? Yes Is there a need for direct personal assessment and management to treat/prevent multiple vital organfailure/deterioration? Yes Patient is critically ill with these diagnoses being managed by the Critical Care Team: Delirium Unspecified Pneumonia Unspecified organism Respiratory Failure Acute with hypoxia IPI Certification I certify that I am a D-H credentialed attending provider with admitting privileges and that the patient meets or has met medical necessity to require an inpatient IPI level of care meeting a minimumof two midnights or is on the [facility] inpatient only procedure list (status C) due to: delivery of critical care services as outlined in assessment and plan above I personally performed 35 minutes of aggregate critical care time exclusive of procedures and teaching. This includes time spent during direct patient evaluation and reassessment, interpreting diagnostic tests, directing life and/or organ supporting interventions and documentation on the unit. --Melvin Espinoza MD * Amisha Meyers, QUALITY CONTROL AUDITOR - 07/08/2019 4:26 AM EST AMV Protocol: Yes SBT Protocol: Yes SBT: Not Performed: Agitation Vent Settings: Servo I Ventilator Mode: PS/CPAP PEEP Set: 5 FiO2: 30 % PSV: 10 Ventilator Measurements: Resp: 13 Vt Spontaneous: 455 Ve: 5.5 SpO2: 95 % EtCO2: 50 mmHg Airway: 7.0 @ 25 cm at the Teeth. Skin Integrity: WDL Pt became agitated when pressure support decreased for SBT. Therefore SBT deferred AMISHA MEYERS RRT * Lizy Constantino RT - 07/07/2019 5:34 PM EST Respiratory Mechanical Ventilation Note AMV (Yes) SBT (Yes) SPO2 > 92% Vent settings: Mode: Pressure Support/CPAP PS Above PEEP (cm H2O): 10 Set PEEP (cm H2O): 5 Set FiO2: 30 % Vent Measurements: Tidal Volume Measured Exp.: 409 Mean Airway Pressure (cm H2O): 9 Minute Ventilation Total Exhaled (L/min): 13 Resp: (!) 36 SpO2: 96 % Airway: 7.0 mm ETT, 25cm @ Teeth. Lung sounds: Crackles (Coarse) Secretions: Moderate Thick Bucio. Assessment: Assumed care of the patient orally intubated on VC: VT 520 (7.9 cc/kg), RR 12, PEEP 5, and FiO2 21%. 1607: Transitioned the patient to PSV: PS above PEEP 10, PEEP 5, and FiO2 30%. Plan: Maintain mechanical ventilation per AMV protocol. RT Loly * Jovanni Espinoza Jr., MD - 07/07/2019 1:47 PM EST Critical Care Attending Daily Progress Note Author JOVANNI ESPINOZA JR, MD Date 07/07/2019 I saw and examined this patient in the critical care unit. Active Problems 1. Acute mental status changes 2. Acute hypoxemic respiratory failure 3. Pneumonia, organism not specified 4. Question polysubstance overdose 5. Hyperactive delirium Physical Exam General Critically ill, sedated, endotracheally intubated and mechanically ventilated Lungs Coarse (B) no wheeze Heart RR no M Abdomen Soft, BS(+) Extremities No C/C/E Neuro RASS -3 Vasoactive Infusions Propofol, fentanyl, ketamine, precedex, midazolam Respiratory Support VC R12 0.21 Vt 520 PEEP 5 Imaging CXR shows PICC well placed. ETT present. Bibasilar opacities unchanged Assessment, Management, and Decision Making 1. Acute hypoxemic respiratory failure, mechanically ventilated. Continue empiric antibiotics for presumed bacterial pneumonia, although organism has not been identified. 2. Start sedation wean. Stop ketamine. Favor midazolam, wean propofol. Can trial precedex to help limit today dose of benzo needed. 3. Goal RASS -2 to -3 4. Spot EEG c/w toxic-metabolic encephalopathy 5. Continue enteral nutritional support 6. Routine ICU prophylaxis 7. Activity as tolerated 8. Full code Is this patient critically ill? Is there a high potential of sudden, clinically significant, or life threatening deterioration? Yes Is there a need for direct personal assessment and management to treat/prevent multiple vital organfailure/deterioration? Yes Patient is critically ill with these diagnoses being managed by the Critical Care Team: Delirium Unspecified Pneumonia Unspecified organism Respiratory Failure Acute with hypoxia IPI Certification I certify that I am a D-H credentialed attending provider with admitting privileges and that the patient meets or has met medical necessity to require an inpatient IPI level of care meeting a minimumof two midnights or is on the CMS inpatient only procedure list (status C) due to: delivery of critical care services as outlined in assessment and plan above I personally performed 40 minutes of aggregate critical care time exclusive of procedures and teaching. This includes time spent during direct patient evaluation and reassessment, interpreting diagnostic tests, directing life and/or organ supporting interventions and documentation on the unit. --Melvin Espinoza MD * Daya Salter, PUBLIC HEALTH - 07/07/2019 11:41 AM EST Yesterday (07/06/19). PUBLIC HEALTH received consult to assist in locating NOK. Internet search did not have any relatives listed. PUBLIC HEALTH contacted [facility] [employer] who report that Kia Almarazaf [phone] had called earlier looking for patient. PUBLIC HEALTH left voicemail yesterday for Kia. Chart reviewed and case discussed in huddle this morning with automotive tire testing supervisor and RN- CM. Patient had multiple friends/family members call yesterday, but it remains undetermined who would be the surrogatedecision maker Nursing obtained additional phone numbers overnight for patient's brother, Wilbert [phone] and for a Chastisrael Hu, patient's ex-girlfriend & mother of his 2 yo child. PUBLIC HEALTH attempted today to reach Wilbert x2, but no voicemail set up on the phone PUBLIC HEALTH contacted Kia who relayed the following information. Kia reports she has known patient for 15 years and that they had dated at one point, but have remained close friends since. Currently, Kia states, patient rents a room in her house. Kia reports that patient has 7 children but he's never had custody of any of them. Kia reports they range from 2 years old to young adult (she is not sure if oldest daughter, Ana Luisa, is 17 or 18). Kia states she believes patient's father is and she does not know patient's mother's name or current status. Kia states patient has brother, Wilbert, but that they have been in touch for many years. Kia notes that she was aware patient used marijuana and alcohol daily, but was not aware that he had started using harder stuff. She thinks it probably began two months ago as he wasn't at home very much. She reports he receives SSDI and spends his day hanging out. She reports she spoke to his friends who report that patient used heroin, crack and air duster prior to his admission at [facility] Kia will try to reach out to Ana Luisa (patient's oldest daughter) via Facebook to obtain a contact number. Presently, as no blood relative has been contacted, [place] Surrogacy laws would appoint Kia [phone] If AD's have not been completed Kia would be surrogate decision maker per [place] surrogate decision making law. Any patient receiving care at [facility] must abide by [place] law. The hierarchy for surrogate decision making is: (a) Patient???s spouse, or civil union partner or common law spouse unless there is a divorce proceeding, separation [...] (i) The agent with financial power of employment law attorney or a conservator appointed in accordance with RSA 464-A. (j) The guardian of the patient???s estate. Office of Case Management- Social Work Note MATA Maloney, [facility] Pager [phone] * Zayda Farley RCP - 07/07/2019 3:34 AM EST AMV Protocol: yes SBT Protocol: yes SBT: Not done at this time due to sedation Vent Settings: Servo I Ventilator Mode: VC Tidal Volume Set: 520 Resp Rate Set: 12 PEEP Set: 5 FiO2: 21 % Ventilator Measurements: Resp: 12 Vt Exhaled: 503 PIP: 35 MAP: 9 Plateau Press: 19 Ve: 6.2 PEEP: 5 cmH20 SpO2: 93 % EtCO2: 45 mmHg Airway: 7.0 @ 25 cm at the Teeth. Skin Integrity: WDL Secretions: moderate white Assessment / Events / Plan of the Day: Pt remains intubated on above vent settings. No changes madethis shift. SBT not done at this time due to sedation. Continue to follow. ZAYDA FARLEY RCP * Zayda Burnham RCP - 07/06/2019 5:33 PM EST AMV Protocol: Yes SBT Protocol: Yes Vent Settings: Servo I Ventilator Mode: VC Tidal Volume Set: 520 Resp Rate Set: 12 PEEP Set: 5 FiO2: 21 % Ventilator Measurements: Resp: 12 Vt Exhaled: 500 PIP: 24 MAP: 8 Plateau Press: 16 Ve: 6.2 PEEP: 5 cmH20 SpO2: 94 % EtCO2: 46 mmHg Airway: 7.0 @ 25 cm at the Teeth. Skin Integrity: WDL Breath Sounds: Rhonchi Assessment / Events / Plan of the Day: Received on PSV 10/5, 30% Sedation increased this afternoon and Pt was placed on vent settings above. Plan to wean vent as tolerated ZAYDA BURNHAM RCP * Jovanni Espinoza Jr., MD - 07/06/2019 1:36 PM EST Critical Care Attending Daily Progress Note Author JOVANNI ESPINOZA JR, MD Date 07/06/2019 I saw and examined this patient in the critical care unit. Active Problems 1. Acute mental status changes 2. Acute hypoxemic respiratory failure 3. Pneumonia, organism not specified 4. Question polysubstance overdose 5. Hyperactive delirium Physical Exam General Critically ill, sedated, endotracheally intubated and mechanically ventilated Lungs Coarse (B) no wheeze Heart RR no M Abdomen Soft, BS(+) Extremities No C/C/E Neuro RASS -4 <-> +2 Vasoactive Infusions Propofol, fentanyl, ketamine Respiratory Support PSV 10/5 0.30 Imaging CXR shows ETT in place, R lung field opacity c/w infiltrate Assessment, Management, and Decision Making 1. Acute hypoxemic respiratory failure, mechanically ventilated. Secondary to pneumonia (question bacterial vs aspiration pneumonitis) with organism not specified. Will continue empiric antibiotics and wean vent support as tolerated. Narrow antimicrobial coverage in response to culture data when available. 2. Continue sedation, goal RASS -2 to -3 although may need deeper levels of sedation for patient safety / behavioral control as unspecified intoxicants are metabolized. I would like to stop ketamine before stopping propofol/fentanyl, although none of this may happen until tomorrow (or beyond.) 3. Obtain spot EEG; HCT negative for acute (structural) process. 4. Initiate enteral nutritional support 5. Routine ICU prophylaxis 6. Activity as tolerated 7. Full code Is this patient critically ill? Is there a high potential of sudden, clinically significant, or life threatening deterioration? Yes Is there a need for direct personal assessment and management to treat/prevent multiple vital organfailure/deterioration? Yes Patient is critically ill with these diagnoses being managed by the Critical Care Team: Delirium Unspecified Pneumonia Unspecified organism Respiratory Failure Acute with hypoxia IPI Certification I certify that I am a D-H credentialed attending provider with admitting privileges and that the patient meets or has met medical necessity to require an inpatient IPI level of care meeting a minimumof two midnights or is on the [facility] inpatient only procedure list (status C) due to: delivery of critical care services as outlined in assessment and plan above I personally performed 45 minutes of aggregate critical care time exclusive of procedures and teaching. This includes time spent during direct patient evaluation and reassessment, interpreting diagnostic tests, directing life and/or organ supporting interventions and documentation on the unit. --Melvin Espinoza MD * Júnior Mendoza MD - 07/06/2019 11:26 AM EST Preliminary EEG Report This EEG shows moderate generalized slowing of the background, likely in part due to medication, along with reactive generalized slowing which occasionally becomes rhythmic. No epileptiform discharges or seizures. Full report to follow. Carlos Coburn DO 07/06/2019 Epilepsy Fellow Personal Pager [phone] Neurology Attending I have personally reviewed the EEG, and I agree with the details as written. The above report was formulated in discussion with me at the time of EEG reading, and I agree with it as documented. Júnior Mendoza [place] [address] Pager: [phone], #[phone] Email: [email or web address] * Zayda Farley RCP - 07/06/2019 3:52 AM EST AMV Protocol: Yes SBT Protocol: Yes SBT: Not done at this time due to sedation Vent Settings: Servo I Ventilator Mode: PS/CPAP PEEP Set: 5 FiO2: 30 % PSV: (S) 10 Ventilator Measurements: Resp: 19 Vt Spontaneous: 448 Ve: 7.7 SpO2: 96 % EtCO2: 42 mmHg Airway: 7.0 @ 25 cm at the Teeth. Skin Integrity: WDL Secretions: moderate/large thick bucio/yellow Assessment / Events / Plan of the Day: Pt remains intubated in PS mode. PS 8-18. Continue to follow. ZAYDA FARLEY RCP * Zayda Burnham RCP - 07/05/2019 5:52 PM EST AMV Protocol: Yes SBT Protocol: Yes Vent Settings: Servo I Ventilator Mode: PS/CPAP PEEP Set: 5 FiO2: 30 % PSV: 16 Ventilator Measurements: Resp: 22 Vt Spontaneous: Ve: 11.6 SpO2: EtCO2: Airway: 7.0 @ 25 cm at the Teeth. Skin Integrity: WDL Secretions: moderate thick white/pink-tinged Assessment / Events / Plan of the Day: Pt arrived via [facility] from OSH. Placed on PSV 16/5, 30%. OSH hospital reports Pt as being a difficult airway due to tracheal narrowing. Plan to wean vent as tolerated ZAYDA BURNHAM RCP documented in this encounter H&P Notes * Michael Jennings MD - 07/13/2019 11:37 AM EST Images from the original note were not included. Hospital Medicine - Admission Note Date of Admission: 07/05/2019 ( Hospital Day 8 days ) Responsible Attending: Gracy Talley MD PCP: Adwoa Nixon MD PCP#: [phone] Problem List: Active Hospital Problems Diagnosis ??? AMS (altered mental status) ??? DIFFICULT AIRWAY ??? Narrowing of airway ??? At risk for danger to others ??? Agitation requiring sedation protocol ??? Pneumonia due to Streptococcus pneumoniae ??? Hypernatremia ??? Respiratory failure with hypoxia ??? Hyperactive behavior Resolved Hospital Problems No resolved problems to display. Active Non-Hospital Problems Diagnosis ??? Depression ??? ADHD (attention deficit hyperactivity disorder) ??? Active smoker ??? Herpes History of Present Illness: HPI Mr. Akshat Serrano is a 38 y.o. man with a PMHx of polysubstance abuse, tobacco use, ADHD, umbilical hernia (s/p repair 2011) who was transferred to the [facility] after being intubated for severe agitation and combative behavior. Patient was presented to an outside hospital for severe agitation that was thought to be secondary to an acute intoxication or withdrawal of illegal substance. The patient was intubated for his agitation and transferred to the [facility] for further management. He required very high doses of propofol, fentanyl and midozalam was started given the concern for alcohol withdrawal. He was treated with thiamine and folate. An EEG was performed given his acute mental status changes on 07/06 which showed moderate generalized slowing and toxic metabolic encephalopathy. A Head CT was negative for brain masses. On 07/06, he was noted to be passing SBT however had severe agitation which was a barrier to extubation. At this time he was loaded with phenobarbital and attempt to wean the propofol and the patient was extubated on 07/11/2019 to nasal cannula. Following extubation the patient required heavy doses of quetiapine, PRN Haldol, and restraints for delirium and agitation. On 07/12 psychiatry was consulted for supposed symptoms abuse, hyperactive delirium and behavioral problems. OSH records report difficulty passing at 7.5 endotracheal tube due to possible stenosis of the trachea. Chart review notes that there was no cuff leak present on assessment on 07/09/2019. A bronchoscopy was performed that showed no evidence of tracheal stenosis however did show edematous airway structures that could be the epiglottis or arytenoids. He received dexamethasone 4mg IV q6hrs for ~48 manny rs for upper airway edema. Again, the patient was extubated without complication. Tube feeds were initiated on 07/07/19 for this patient and he was noted to have hypomagnesemia, hypophosphatemia and hypokalemia secondary to possible refeeding syndrome. These electrolytes were aggressively repleted. There was a concern for aspiration which prompted a sputum culture that grew strep pneumonia. For this, he was treated with ceftriaxone IV for 5 days ending on 07/09/2019. On 07/12 to 07/13, the patient was noted to have multiple loose bowel movements and leukocytosis of >15 and a C diff screen was sent. On my interview today, the patient was alert and cooperative and happy that he was feeling better. Denies any chest pain, dyspnea, odynophagia, abdominal pain, nausea, vomiting. There is discomfort form the NG tube. He has been having diarrhea which is not normal for him. Prior to admission, patient was noted to be drinking alcohol and using intra-nasal crack/cocaine. Review of Systems: 12 systems reviewed and negative other than above. Past Medical History: - see HPI Medications: No current facility-administered medications on file prior to encounter. Current Outpatient Medications on File Prior to Encounter Medication Sig Dispense Refill ??? OXYcodone-acetaminophen (PERCOCET) 5-325 mg per tablet Take 1 tablet by mouth every 4 hours as needed for Pain. 10 tablet 0 Allergies: No Known Allergies Family History: No family history on file. Social History: - lives with roommate - hx of abuse with alcohol, opioids - crack/cocaine - former smoker Immunizations: There is no immunization history for the selected administration types on file for this patient. Physical Exam: Vitals: Most Recent Vitals: 07/13/19 0600 BP: Pulse: Resp: Temp: 37.2 ??C (99 ??F) SpO2: GEN: young man in nad, non toxic appearing but somnolent HEENT: no scleral icterus, EOMI, PERRL CV: RRR, normal s1 and s2, no murmurs appreciated Pulm: CTAB Abdomen: soft, nttp, nabs Ext: without edema or rashes Neuro: grossly intact, no asterixis, CN 2-12 intact Laboratory (Last 24 Hours): Lab Results Component Value Date WBC 15.6 (H) 07/13/2019 HGB 13.5 (L) 07/13/2019 HCT 38.4 (L) 07/13/2019 MCV 81.5 (L) 07/13/2019 PLATELET 278 07/13/2019 Lab Results Component Value Date NA 140 07/13/2019 K 3.6 07/13/2019 CL 101 07/13/2019 CO2 25 07/13/2019 BUN 15 07/13/2019 CREATININE 0.64 (L) 07/13/2019 GLUCOSE 116 07/13/2019 GLUCFASTING 90 07/05/2019 CALCIUM 9.2 07/13/2019 ESTGFR 123 07/13/2019 Lab Results Component Value Date ALT 10 07/05/2019 AST 27 07/05/2019 ALKPHOS 50 07/05/2019 BILITOT 0.2 07/05/2019 ALBUMIN 3.0 (L) 07/05/2019 PROT 5.5 (L) 07/05/2019 Microbiology: Blood cultures x2: 07/05, NGTD Radiology: CXR (07/13/2019): Assessment: Mr. Akshat Serrano is a 38 y.o. man with a PMHx of polysubstanceabuse, tobacco use, ADHD, umbilical hernia (s/p repair 2011) who was transferred to the [facility] MICU after being intubated for severeagitation and combative behavior. Patient is clinically and HD stable at this time, his mental status and combative behavior have markedly improved and may no longer require physical/chemical restraints. His initial combative behavior/agitation requiring intubation may have been related to an acute intoxication with a combination of cocaine and alcohol, his protracted symptoms while in hospital were likely from withdrawal of those substances. # Acute metabolic encephalopathy 2/2 drug intoxication # Hyperactive delirium - resolving - social work and CM consult for substance abuse - liberalize restraints - quetiapine 75mg po qAM and 150mg qPM - appreciate psychiatry recommendations - continue thiamine 500mg po tid - continue folate 1000mg po qd # Leukocytosis, neutrophilic predominance # Diarrhea - s/p 5 days IV ceftriaxone for CAP (ended 07/09) - ordered C diff screen - soap/water precautions # ? Refeeding syndrome - replete Mg, K, Phos and monitor daily # Upper airway edema # Difficult airway - s/p dexamethasone in the ICU - no acute airway concerns # ADHD - holding home gabapentin, clonidine, and focalin for now DVT ppx: lovenox subq GI ppx: not indicated Code Status: Full Code Access/Fluids: PIV x1 Disposition: transfer to hospital medicine Michael Jennings MD [facility] Medicine, [phone] 07/13/19 Associated attestation - Sha Magaña MD - 07/13/2019 5:46 PM EST Hospital Medicine Service Attending Documentation Please see Dr. Jennings's note for details of the patient history of presentation and data. I have discussed, reviewed and agree with the documented History, Physical findings, Assessment and Plan of care. I have examined the patient myself and personally reviewed all studies. Additions to the history, physical, assessment and plan include the followin yo with history of polysubstance abuse, ADHD presenting with agitation and AMS in setting of suspected active substance use including ETOH and cocaine. Required significant sedation and intubationfor airway protection. At this point continues to have some waxing/waning disorientation; likely resolving delirium from substance use/sedating medications. Cleared for PO intake with aspiration precautions. Will remove restraints assuming that he remains calm and cooperative; work to remove NG tube pending adequate indep endent po intake. Will engage BIT/social work regarding substance history. Sha Magaña MD * Sha Field, TILE PICKER - 07/05/2019 1:25 PM EST Critical Care Admission Note Akshat Serrano is a 38 y.o. male with a PMHx of ADHD, opiate and etoh use who presents to the MICU on 07/05/19 with altered mental status and respiratory failure. HPI: Akshat Serrano is a 38 year old man with the above PMHx. He presented to [facility] on the morning of 07/03/19 via EMS with altered mental status presumed to be secondary to ingestion and right leg pain (subtle cortical defect at the tibiofibular joint, felt to be negative by their ortho). He was noted to be uncooperative with staff and physically combative eventually leading to his intubation. Laboratory studies at [facility] were remarkable for a WBC of 14.9, Ammonia of 45, and a Utox postive for EtOH, THC and cocaine. Based on his level of agitation the staff also feltPCP may be a potential ingestion. A head CT was negative for intracranial pathology. CT of the C/A/P showed R>L bibasilar consolidation consistent with aspiration and/or pneumonia. After admission attempts at weaning sedation and liberating from mechanical ventilation have been unsuccessful 2/2 tachypnea and agitation. In addition I am told his sputum sample grew out s. Pneumoniae. Today [facility] was contacted and arrangements were made for transfer to the MICU. Upon arrival he is hemodynamically stable. ROS: .Review of Systems - History obtained from chart review Past Medical History: Diagnosis Date ??? No known problems Past Surgical History: Procedure Laterality Date ??? HERNIA REPAIR ??? IMPLANT MESH HERNIA REPAIR/DEBRIDEMENT CLOSURE 12/05/2011 IMPLANT MESH FOR INCISIONAL OR VENTRAL HERNIA REPAIR performed by CARLOS ENRIQUE BECK III at [facility] OR ??? REPAIR INCISIONAL HERNIA, REDUCIBLE 12/05/2011 REPAIR INITIAL INCISIONAL OR VENTRAL HERNIA REDUCIBLE performed by CARLOS ENRIQUE BECK III at [facility] OR No family history on file. Outpatient medications: No current facility-administered medications on file prior to encounter. Current Outpatient Medications on File Prior to Encounter Medication Sig Dispense Refill ??? OXYcodone-acetaminophen (PERCOCET) 5-325 mg per tablet Take 1 tablet by mouth every 4 hours as needed for Pain. 10 tablet 0 No Known Allergies Last value Range last 24 hrs Temperature Temp: -- Heart Rate Heart Rate: -- Blood Pressure BP: -- Respiratory Rate Resp: -- SpO2 SpO2: -- Art BP BP (Arterial Line): -- Ventilator Settings: PSV 16/5 30% Physical Exam: General: Intubated sedated male HEENT: Atraumatic, normocephalic Neuro: Opens eyes spontaneously but does not track, moves all extremities/reaches for ETT Pulmonary: Clear to ausculation bilaterally Cardiovascular: RRR, no obvious M/R/G Abdomen: Soft, non-tender, hypoactive BS : Basilio to gravity Extremities: Pulses x 4 Skin: [place], warm and dry Labs: Last 3 wbc, hgb, hct plt No results for input(s): WBC, HGB, HCT, PLATELET in the last 7068 hours. Last 3 Lytes No results for input(s): NA, K, CL, CO2, BUN, CREATININE in the last 7068 hours. Last 3 LFTs No results for input(s): AST, ALT, ALKPHOS, BILITOT, BILIDIR in the last 7068 hours. Last Ca, Mg, Phos No results for input(s): CALCIUM, PHOS in the last 168 hours. Invalid input(s): MAGNESIUM1 Last 3 Coags No results for input(s): PT, INR, PTT in the last 168 hours. Microbiology: BC x 2 Sputum Cx UA with reflex EC Lead EKG Imaging: CXR pending Assessment: Mr. Serrano is a 38 year old male presenting with altered mental status and pneumonia(aspiration vs. existing CAP). Upon arrival he is quickly wildly agitated requiring IV boluses of Fentanyl, Propofol and the addition of boluses of midazolam and a low dose Ketamine infusion. Will plan to follow-up on OSH culture data (not included in transfer paperwork) and continue antibiotic coverage. Plan: Neuro: Agitated delirium at OSH, impressive analgesia/sedation requirements ?? Continue Propofol infusion ?? Continue Fentanyl infusion ?? PRN Midazolam 2mg q1 hour until Ketamine infusion started ?? Start Ketamine 0.3mg/kg/hr ?? Low threshold for repeat CT imaging and/or Neurology consult Pulm: Aspiration vs CAP (growing S. Pneumoniae in sputum at OSH) ?? CXR now ?? Ceftriaxone 2G q 24 hours given known pathogen ?? Repeat sputum culture ?? PRN Albuterol ?? Low threshold to broaden Abx coverage ?? Wean FiO2 as tolerated ?? AMV Protocol CV: No active issues ?? EKG on arrival ?? ABG with lactate on arrival ?? Consider arterial line placement. GI: No active issues ?? OGT ?? Pepcid BID ?? NPO give meds for now Renal/FEK: No active issues ?? Basilio to gravity ?? Daily BMP ?? Replete electrolytes as indicated Hematology: No active issues ?? Daily CBC ID: Strep pneumoniae in sputum with bilateral infiltrates ?? Trend WBC ?? Trend temperature curve, west culture for >38.3 ?? Ceftriaxone as above Endocrine: No active issues ?? SSI Other prophylaxis: MARIBELL for DVT prophylaxis Pepcid for GI prophylaxis HOB > 30 Chlorhexidine mouth care Mepliex to sacrum PT/OT: Ordered Lines/Tubes/Drains: PIV Basilio Consults: None Decision Making: Unclear at present Code Status: Full Disposition: MICU Sha Field APRN July 05, 2019 Critical Care Green Team (pager [phone]) Dr. Hubbard is the attending of record for this admission documented in this encounter Procedure Notes * Quique Regan RN - 07/07/2019 10:54 AM ESTAssociated Order(s): PLACE BEDSIDE PICC LINE PICC/Midline Insertion Procedure Note Indications: Anti-infective, Access and Medication Administration This insertion was not to replace a malfunctioning catheter. This insertion was not due to a suspected line-associated infection. Location of Procedure: ICU [address] [facility] Risks and Benefits: Medical necessity order placed ,unable to obtain consent, family not available Time Out: Prior to the start of the procedure, the patient's identity, intended procedure, site/side, correctpatient positioning and presence of the site basil was confirmed as applicable. The medical history and chart were reviewed to rule out potential contraindications to the planned procedure. Hand Hygiene: The aluminum hydroxide process operator did perform hand hygiene prior to line insertion. Catheter type: PICC Lot number: [id number] Procedure Technique: Skin was prepped with chlorhexidine. Skin preparation agent was completely dry at the time of first skin puncture. The following barrier precaution methods were used:large sterile drape, maske/eye shield, large sterile gown, sterile gloves and cap. 2 ml of 1% Lidocaine was used for skin wheal. Ultrasound was used for guidance. Radiographic contrast agent was not injected for vein identification. Procedure Details: Order received for catheter placement. A 5 Fr. double lumen Bard Power catheter was placed into theright basilic vein over a 0.018 inch guidewire using modified seldinger technique and fluoroscopy. Arm circumference was 32 cm at 2 cm above the insertion site. Final catheter length (with trimming): 39 cm Internal: 39 cm External: 0 cm Tip in SVC per DR DENISE. The line was not placed over a guidewire. Post Procedure: Diagnosis: RES. FAILURE Blood return noted on aspiration of line after placement confirmed. 5 mls of normal saline infused free flowing to gravity via PICC after insertion. Sterile dressing applied: CHG Impregnated Tegaderm. Findings: The patient did tolerate the procedure well. No Complications. Procedure Comments: QUIQUE REGAN RN 07/07/2019 * Júnior Mendoza MD - 07/06/2019 10:21 PM EST [facility] Department of Neurology Critical Care Continuous EEG Report Patient: Akshat Serrano, [id number] Date: 07/06/19 Start Time: 07/06/2019 09:24 End Time: 07/06/2019 17:00 Fellow: Carlos Coburn DO Attending: Júnior Mendoza MD History: 38 yo M with history of possible overdose with altered mental status. Methods: A 21 channel digitized electroencephalogram was performed in the Neurologic Critical Care Unit by the [facility] Clinical Neurophysiology Laboratory. The 10/20 international system of electrode placement was used and bipolar and referential electrode montages were recorded. Video was recorded during the session. Background Symmetry Symmetric Continuity Continuous Breach Present Absent PDR Absent Background EEG Frequency Delta > Theta AP Gradient Present Present Variability Present Reactivity Present Voltage Normal Stage II Sleep Transients Present but abnormal Periodic/Rhythmic Patterns Yes Periodic/Rhythmic Patterns Generalized (G) Nature (Main Term 2) Rhythmic Delta Activity (PRODUCTION CHECKER) Major Modifiers Prevalence Occasional (1-9%) Duration Long (5-59 min) Frequency 1/s} Phases 2 Sharpness Blunt (>200ms) Absolute Amplitude Medium (50-199??V) Polarity Negative Stimulus-Induced SI - Stimulus Induced Evolution Fluctuating Minor Modifiers Onset Gradual >3s Triphasic Morphology No Lag No Sporadic Epileptiform Discharges Prevalence: None Interpretation This is an abnormal EEG due to moderate generalized slowing of the background as well as generalized rhythmic delta activity (GRDA) with stimulation. Clinical Correlation This EEG shows moderate diffuse cortical dysfunction of nonspecific etiology, including drug effect. No epileptiform discharges or seizures on this recording. Carlos Coburn DO 07/06/2019 Epilepsy Fellow Personal Pager [phone] Neurology Attending I have personally reviewed the EEG, and I agree with the details as written. The above report was formulated in discussion with me at the time of EEG reading, and I agree with it as documented. Júnior Mendoza [place] [address] Pager: [phone], #[phone] Email: [email or web address] documented in this encounter Miscellaneous Notes * Plan of Care - Carla Martinez, PT - 07/15/2019 12:50 PM EST Physical Therapy Note Treatment Number PT: 3 Patient profile: Akshat Serrano is a 38 year old man with??ADHD, opiate and etoh use??who presents to the??MICU on??07/05/19??with altered mental status and respiratory failure.??. He presented to [facility] on the morning of 07/03/19 via EMS with altered mental status presumed to be secondary to ingestion and right leg pain (subtle cortical defect at the tibiofibular joint, felt to be negative by their ortho). He was noted to be uncooperative with staff and physicallycombative eventually leading to his intubation. Laboratory studies at [facility] were remarkable for a WBC of 14.9, Ammonia of 45, and a Utox postive for EtOH, THC and cocaine. Based on his level of agitation the staff also felt PCP may be a potential ingestion. A head CT was negative for intracranial pathology. CT of the C/A/P showed R>L bibasilar consolidation consistent with aspiration and/or pneumonia. Extubated 07/11/19 Got decadron for airway swelling. Continues to require seroquel and haldol for agitation. Interval History: c-diff negative Active problems: 1. Altered mental status 2. Hypokalemia 3. Hypomagnesemia 4. Hypophosphatemia Precautions/Special Considerations: Fall risk Lines: ICU monitoring lines, peripheral IV's Activity Orders: up with assist Diet: regular Mobility and Positioning Recommendations: ?? Pt able to Transfer bed >< chair independently ?? Please encourage up to chair for meal times as able. ?? Please encouraged amb in hallway with staff supervision. Subjective: I walked a lot last night, I was up early this morning, I've been doing heel raises & push-ups in my room. 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 Objective: Patient seen for physical therapy and demonstrated the following: Pain: no c/o's Vital Signs: HR=89 SpO2=93% RA ?? Pt standing in his room when I arrived, he's allowed to be up independently in room. Witnessed much improved standing balance. ?? He asked to take a walk in hallway. Supervised gait and he's much steadier on his feet today, able to look around without LOB, faster bibi & tolerated 3 laps around ICU ~ 450'. ?? He was able to amb up & down stairs [id number] without assistance & no LOB. ?? He was able to bend over and picker / packer object from floor without need for any support and no LOB. ?? He was able to go to kitchenette and pour himself a drink and carry the drink back to his room walking. ?? Ended session with him standing in his room, with MD arriving to speak with him. Assessment: Akshat Serrano was seen today for physical therapy treatment session for continuation of POC. Pt moving so much better than yesterday, much improved balance which allows him more freedom to move and complete tasks safely. He states he's discharging home today and has help. Has met goals and cleared for d/c once team approves. Discharge Recommendations: Based on the current findings, Anticipated Discharge Disposition: home with assist when medically ready for hospital discharge. Consult Recommendations: No other consults recommended at this time. Equipment needs: No needs Goals: To be achieved by 07/19/19: ALL GOALS MET except didn't meet any family/friends (goal #5) ?? 1. Pt. to demonstrate knowledge of safety precautions and will appropriately request assistance forfunctional activities and to mobilize. 2. Pt. to perform bed mobility independently. 3. Pt. to perform ALL transfers with CGA using a LRAD mechanical lift. 4. Pt. to ambulate 50 feet with CGA using a LRAD, no LOB. 5. Family or caregiver to demonstrate understanding of therapeutic interventions to support the care of the patient. 6. Pt will tolerate progression towards upright with stable vital signs. ?? Plan: Goals met, patient reports he's leaving for home and has help after discharge from friends. Time IN / OUT: 2-2:20 Total Evaluation Minutes, Physical Therapy: 20(TE-F) CARLA MARTINEZ PT Pager: [phone] Physical Therapy Inpatient Rehabilitation Department * Plan of Care - Kalyani De Guzman, OT - 07/15/2019 12:50 PM EST Occupational Therapy Treatment Note Treatment Number OT: 2 Patient Dx: Akshat Serrano is a 38 year old man??with??ADHD, opiate and etoh use??who presents to the??MICU on??07/05/19??with altered mental status and respiratory failure.??. He presented to [facility] on the morning of 07/03/19 via EMS with altered mental status presumed to be secondary to ingestion and right leg pain (subtle cortical defect at the tibiofibular joint,felt to be negative by their ortho). He was noted to be uncooperative with staff and physically combative eventually leading to his intubation. Laboratory studies at [facility] were remarkable for a WBC of14.9, Ammonia of 45, and a Utox postive for EtOH, THC and cocaine. Based on his level of agitation the staff also felt PCP may be a potential ingestion. A head CT was negative for intracranial pathology. CT of the C/A/P showed R>L bibasilar consolidation consistent with aspiration and/or pneumonia. Social History: Lives in [place], [place] with Kia (friend?) Home Setup: Apartment [place] [address] [place] [address] DME: Unknown Baseline ADL/Mobility: fully independent with I/ADLs. On SS disability. ?? Precautions/Special Considerations: Falls ?? Interval History: improved MS. Anticipating d/c today S: I got myself dressed today. They wouldn't let me walk out of my room so I would do this (heelraises) and then a pushup. O: Patient seen for therapeutic activities and demonstrated the following: ?? Self-care: NA; pt reports independence with ADLs. Pt wearing hospital pants, sneakers, and martir upon approach for therapy. Prepared cold beverage and snack independently. ?? Functional Mobility: independent on unit without AD. No LOB during dynamic standing activities ?? Cognition: ?? Behavior / Mood: alert and cooperative ?? Alert and oriented to: person, place, time and situation ?? Follows commands: multi step and 100% of the time ?? Attention: WFL ?? Safety awareness: WFL ?? Good problem solving ?? Endurance: no c/o fatigue or SOB ?? Vitals: WDL Pain: 0 Education: Pt/family/caregiver education ongoing regarding: Functional Mobility, Recommendations and Discharge planning. Staff Communication: Patient status, treatment, and mobility recommendations discussed with nursing/other staff. ASSESSMENT: Pt seen for continuation of OT per POC. Pt presents with significant improvement in physical and cognitive skills since initial OT evaluation. Pt states he is performing ADL independentlyand demonstrated independence with functional mobility and IADL tasks. Pt anticipates d/c home today with support of his friend. Pt will benefit from ongoing therapeutic interventions to achieve pt'sand therapy goals Anticipated Discharge Disposition: home with assist Equipment Recommendations: none Occupational Therapy Goals: Met Patient will don/doff UB clothing with supervision, seated Patient will don/doff LB clothing with Min A, seated, with AE, as needed Patient will complete toileting tasks (hygiene, clothing management, transfers) with Min A and withAE, as needed Patient will ambulate to/from the bathroom with Min A and with AD, as needed Patient will be A&Ox4 with external cues Patient will self feed with set up, seated, with AE, as needed Patient will complete UB/LB sponge bathing tasks with Min A, while seated with AE, as needed Patient will complete grooming task (comb hair, brush teeth) with CGA, seated Pt will follow multistep step motor command 5/5 times during session Pt will actively participate in AAROM/AROM BUE exercise to promote strengthening for ADL tasks, w/ increase 1/2 grade strength throughout. Therapy Frequency: monitor Total Evaluation Minutes, Occupational Therapy: 10(SCHM x 1) Pager: [phone] Kalyani De Guzman OT Occupational Therapy Rehabilitation Department * Consult Note - Mert Domínguez, TILE PICKER - 07/15/2019 11:21 AM EST BIT Evaluation Referral source: Psych CL Reason for referral: Opioid Use Disorder Relevant history: Mr. Serrano is a 38-year-old man admitted with AMS requiring intubation in the setting of polysubstance use. Mr. Serrano is A&Ox4 with assistance, apparent memory deficits, tangential at times, expressing a desire to leave AMA, denies any opioid withdrawal symptoms or craving at this time- started Suboxone yesterday, he received 8 mg Suboxone yesterday (reports 8 mg daily was his last outpatient dose), mild visible hand tremor, no other apparent signs or symptoms of alcohol withdrawal, denies AH/VH, denies SI/HI. Mr. Serrano struggled to give a detailed history of his substance use. He reports using alcohol and other drugs experimentally in his teens and started using illicit opioids following surgery some years ago. He reports using intranasal heroin Never used it IV for years before starting buprenorphine assisted treatment at [facility] in [facility] 5 years ago where he reports being stable on Suboxone 8 mg daily for 4 years before Getting kicked out for fighting with another patient. Since thenhe reports polysubstance use including intranasal heroin, cocaine, illicit Suboxone, and alcohol. Mr. Serrano reports being motivated to abstain from illicit opioid use with the clinical support of outpatient buprenorphine assisted treatment. He has a call in to [facility] in [facility] and is waiting to see if he can resume daily dosing there. He did not indicate wether or not he plans to resume alcohol or other drug use. He was encouraged to remain hospitalized. Additional substance use treatment and relapse prevention resources were given and placed in his discharge instructions. Assessment: Mr. Serrano is a 38-year-old man admitted with AMS requiring intubation in the setting of polysubstance use. Currently without any opioid withdrawal symptoms or craving at this time- getting Suboxone 8 mg Suboxone, slight visible hand tremor, no other apparent signs or symptoms of alcohol withdrawal, no acute safety concerns. Motivated to abstain from illicit opioid use with the clinical support of outpatient buprenorphine assisted treatment. He has contacted [facility] in [facility] and plans to re-engage in daily dosed buprenorphine assisted treatment there if he is allowed to return. He did not indicate wether or not he plans to resume alcohol or other drug use. He was encouraged to remain hospitalized. Interventions delivered: Medication assisted treatment counseling Motivational interviewing Recommend: -Continue Suboxone 8 mg daily. Plan: 1. Patient plans to abstain from illicit opioid use with the clinical support of outpatient buprenorphine assisted treatment. 2. Patient plans to resume daily dosed buprenorphine assisted treatment at [facility] in [facility] Medication Assisted Treatment Plan (select yes if referral reason indicates AUD, OUD or TAWNYA - other): Yes. Substance use of focus: Opioid. Was patient already on a medication to treat OUD prior to admission? No. Initiation of MAT offered this admission? Yes. Patient accepts: Yes. Patient choice of medication: Buprenorphine. Discharge Planning Needs: MAT prescriber buprenorphine prescription At discharge patient may require a buprenorphine script to bridge to outpatient MAT appointment, please page Psychiatry at [phone] for assistance with this. Time spent with the patient (min):60 minutes Time spent on case coordination (min): 15 minutes * Plan of Care - Walt Hernandez RN - 07/15/2019 11:01 AM EST Problem: Health Knowledge, Opportunity to Enhance (Adult,NICU,,Obstetrics,Pediatric) Intervention: Enhance Health Knowledge Patient Guidelines for Self-Care after PICC (Peripherally Inserted Central Catheter) Removal Your PICC was removed on at____Noon An antibiotic ointment was applied to the insertion site (where the PICC went into your skin). Betadine ointment was used (a dark reddish brown color, and should not be confused with blood) ___X_Bacitracin ointment was used. (a clear ointment). The nurse applied gauze and a transparent ( see-through) dressing over the insertion site. To help your PICC insertion site heal: *Avoid heavy lifting (for example, no more than a gallon of milk) or vigorous activities for 24 hours * Keep the dressing over the insertion site dry for 24 hours * You can remove the dressing after 24 hours. Call your doctor after your PICC has been removed if you experience any of the following: * Fever (temperature over 100.1F) * Chills * Drainage from the insertion site ( including bleeding). Remember the Betadine antibiotic ointment, if used, was to protect your skin when the PICC was removed, can look like blood! *Redness, warmth, pain, swelling, or a pink/red streak going up your arm *A knot at the insertion site or anywhere in the arm *If bleeding should occur, hold firm pressure for 3-5 minutes. Do not remove the dressing that the nurse put on when the PICC was removed.. If needed, apply another dressing over the first dressing. If bleeding does not stop, call or seek medical attention. * Plan of Care - Kylah Gordon, LINDSEY - 07/15/2019 9:56 AM EST Speech Therapy Note Patient Profile: Akshat Serrano is a 38 y.o. male admitted on 07/05/2019 for altered mental status and respiratory failure. PMHx of ADHD, opiate and etoh use. He presented to [facility] on the morning of 07/03/19 via EMS with altered mental status presumed to be secondary to ingestion and right leg pain (subtle cortical defect at the tibiofibular joint, felt to be negative by their ortho). He was noted to be uncooperative with staff and physically combative eventually leading to his intubation. Laboratory studies at [facility] were remarkable for a WBC of 14.9, Ammonia of 45, and a Utox postive for EtOH, THC and cocaine. Based on his level of agitation the staff also felt PCP may be a potential ingestion. A head CT was negative for intracranial pathology. CT of the C/A/P showed R>L bibasilar consolidation consistent with aspiration and/or pneumonia. Interval History: Mentation improving. Psychiatry following. NG tube removed. No longer requiring restraints. Subjective: Patient walking around room, anticipating discharge today Objective: Pt seen for dysphagia management and demonstrated the following: Pain: Denies pain Respiratory Status: Room air Current Diet: Regular diet Feeding / Oral Care Status: Pt is independent Cognitive-Linguistic Status: alert, oriented to person, place, and time with increased time and cueing Command Following: Follows single step commands Positioning: Standing Oral / Laryngeal Mechanism Clinical Assessment: ?? Lingual: Tongue protrudes midline. Adequate ROM with lateralization. ?? Labial / Buccal: Symmetrical lip retraction bilaterally ?? Velar: Velar elevation present ?? Sensation: Appears intact ?? Vocal fold function and airway protection: Strong, dry cough. Voice is clear. Mildly harsh vocalquality. ?? Speech Intelligibility: WFL ?? Mucosa: WFL ?? Dentition: Missing tooth on front bottom arch, chipped tooth on front upper arch Bolus Presentation(s): ?? Thin liquid via straw ?? Mixed consistency Oral Preparatory Phase: ?? Mastication: Efficient mastication ?? Oral Transit: Timely oral transit ?? Bolus Cohesion: Adequate bolus control/cohesion ?? Labial Seal / Loss: Functional labial seal ?? Oral Stasis: Negative oral stasis Pharyngeal Phase: ?? Laryngeal Elevation: Present ?? Vocal quality change: Negative ?? Cough / throat clear: Strong, dry cough not correlated with PO trials ?? Pt. complaint of food getting stuck: Negative ?? Fatigue across trials: No ?? Respiratory rate and respiratory swallow pattern: No change Esophageal Phase: ?? Appears to be WFL, No overt clinical s/s of esophageal phase dysphagia noted during this evaluation. Education: Patient educated on results and recommendations, and verbalized understanding. Patient status, treatment and swallow recommendations were discussed with nursing. Assessment: Pt was seen today for a follow-up [facility] visit for mild pharyngeal dysphagia s/p extubation. Per RN, patient has been tolerating regular diet & eating full meals without difficulty. Patient presents with grossly intact swallow function. No longer requiring multiple swallows per bolus. No overt s/sx of aspiration. [facility] intervention no longer indicated, L[facility]OGR[facility]IC STRIPPER to sign off. Diagnosis: grossly intact oropharyngeal swallow Recommendations: Diet: Regular solids, Thin liquids PO medications: whole with sip of water Aspiration precautions: ?? Supervision needed for all meals ?? Feed only when alert ?? Reduce environmental distractions ?? Needs verbal cues to use recommended strategies ?? Upright position during meals and for at least 30 mins following ?? Small sips and bites while eating ?? Slow rate; swallow between bites Multiple swallows: as needed Plan: Therapy Frequency: other (see comments)(discharge from [facility] services) Pt./family are in agreement with treatment plan. Total Evaluation Minutes, Speech Language Pathology: 11 Kylah Barakat. MS Heidi, [facility] Pager: [phone] Speech-Language Pathologist Inpatient Rehabilitation Medicine * Plan of Care - Mirlande Storey RN - 07/15/2019 6:12 AM EST Problem: Skin Integrity Impairment, Risk/Actual (Adult) Goal: Identify Related Risk Factors and Signs and Symptoms Related risk factors and signs and symptoms are identified upon initiation of Human Response Clinical Practice Guideline (CPG) Outcome: Ongoing (Interventions Implemented as Appropriate) 07/15/19 06 Skin Integrity Impairment, Risk/Actual Skin Integrity Impairment, Risk/Actual: Related Risk Factors fluid/nutrition status;mechanical factors;infection/disease process;metabolic imbalance;tissue perfusion impaired Signs and Symptoms (Skin Integrity Impairment) other (see comments) (excoriation) Problem: Alcohol Withdrawal Acute, Risk/Actual (Adult) Goal: Signs and Symptoms of Listed Potential Problems Will be Absent, Minimized or Managed (AlcoholWithdrawal Acute, Risk/Actual) Signs and symptoms of listed potential problems will be absent, minimized or managed by discharge/transition of care (reference Alcohol Withdrawal Acute, Risk/Actual (Adult) CPG). Outcome: Ongoing (Interventions Implemented as Appropriate) 07/15/19 06 Alcohol Withdrawal Acute, Risk/Actual Problems Assessed (Alcohol Withdrawal Syndrome) all Problems Present (Alcohol Withdrawal Syndrome) situational response Problem: Patient Care Overview Goal: Plan of Care Review Outcome: Ongoing (Interventions Implemented as Appropriate) 07/15/19 06 Coping/Psychosocial Plan Of Care Reviewed With patient Plan of Care Review Progress progress toward functional goals as expected OUTCOME EVALUATION NOTE: OUTCOME SUMMARY: Patient remained hemodynamically stable throughout the shift. Patient had adequate intake and output. Walked around the unit 10 + times. Ambulates in room. Patient complains of some anxiety and restlessness and inability to sleep. PLAN MOVING FORWARD: Discharge home or transfer to floor INDIVIDUALIZED FALL PREVENTION INTERVENTIONS: Patient-specific fall risk factors per assessment: [current deficits]: Monitoring cords Assistance [level of assistance required for transfers and ambulation]: Patient ambulates independently Supervision [direct monitoring required during toileting and ADLs]: Patient performs ADLs independently Surveillance [continuous indirect monitoring]: Patient on telemetry and blood pressure monitoring Patient-specific fall prevention interventions for sensory deficits provided, if applicable: [X] Yes * Plan of Care - Kimmy Boswell RN - 07/14/2019 7:31 PM EST Problem: Alcohol Withdrawal Acute, Risk/Actual (Adult) Goal: Signs and Symptoms of Listed Potential Problems Will be Absent, Minimized or Managed (AlcoholWithdrawal Acute, Risk/Actual) Signs and symptoms of listed potential problems will be absent, minimized or managed by discharge/transition of care (reference Alcohol Withdrawal Acute, Risk/Actual (Adult) CPG). 07/14/19 1707 Alcohol Withdrawal Acute, Risk/Actual Problems Assessed (Alcohol Withdrawal Syndrome) effects of JAKE (alcohol withdrawal syndrome) including DTs (delirium tremens);situational response Problems Present (Alcohol Withdrawal Syndrome) situational response Problem: Patient Care Overview Goal: Plan of Care Review Outcome: Ongoing (Interventions Implemented as Appropriate) 07/14/19 1707 Coping/Psychosocial Plan Of Care Reviewed With patient;friend Plan of Care Review Progress improving OUTCOME EVALUATION NOTE: OUTCOME SUMMARY: No significant events throughout the day. Patients VSS, adequate urine output and moderate complaints of feeling anxious. Patient ambulated the unit with PT multiple times without issue. C-diff results came back negative - precautions removed. Patient in good spirits talking with the Psych team about getting the help he needs when he is discharged. Patient talked to multiple friends and children today. Patients appetite was good. Will continue to monitor patient and follow current plan of care PLAN MOVING FORWARD: Monitor w/d symptoms INDIVIDUALIZED FALL PREVENTION INTERVENTIONS: Patient-specific fall risk factors per assessment: [current deficits]: IV lines, generalized weakness Assistance [level of assistance required for transfers and ambulation]: Assist x1 Supervision [direct monitoring required during toileting and ADLs]: Assist with BADLs Surveillance [continuous indirect monitoring]: Per ICU protocol Patient-specific fall prevention interventions for sensory deficits provided, if applicable: [X] Yes * Plan of Care - Carla Martinez, PT - 07/14/2019 4:35 PM EST Physical Therapy Note Treatment Number PT: 2 Patient profile: Akshat Serrano is a 38 year old man with??ADHD, opiate and etoh use??who presents to the??[facility]U on??07/05/19??with altered mental status and respiratory failure.??. He presented to [facility] on the morning of 07/03/19 via EMS with altered mental status presumed to be secondary to ingestion and right leg pain (subtle cortical defect at the tibiofibular joint, felt to be negative by their ortho). He was noted to be uncooperative with staff and physicallycombative eventually leading to his intubation. Laboratory studies at [facility] were remarkable for a WBC of 14.9, Ammonia of 45, and a Utox postive for EtOH, THC and cocaine. Based on his level of agitation the staff also felt PCP may be a potential ingestion. A head CT was negative for intracranial pathology. CT of the C/A/P showed R>L bibasilar consolidation consistent with aspiration and/or pneumonia. Extubated 07/11/19 Got decadron for airway swelling. Continues to require seroquel and haldol for agitation. Interval History: c-diff negative Active problems: 1. Altered mental status 2. Hypokalemia 3. Hypomagnesemia 4. Hypophosphatemia Precautions/Special Considerations: Fall risk Lines: ICU monitoring lines, peripheral IV's Activity Orders: up with assist Diet: regular Mobility and Positioning Recommendations: ?? Pt able to Transfer bed >< chair with close supervision to CGA x 1 staff member. ?? Please encourage up to chair for meal times as able. ?? Please encouraged amb in hallway with staff member CGA for balance assist. Subjective: I just need to walk it off How many days have I been here? I don't remember about any of those days. Objective: Patient seen for physical therapy and demonstrated the following: Pain: no c/o's Vital Signs: HR=87 SpO2=93% RA TX=601/58 ?? Pt sitting up in bed, HOB raised talking on phone when I arrived. He was able to swing legs overto side and maintain sitting balance. ?? Sit > stand: independent but @ risk to fall as standing balance not good. ?? Pt impulsive so needed strong instructions to sit to don pants, able to get his legs into pant-legs and stand to pull up over hips, had to lean against bed for balance while standing to tie pants. ?? He stood @ foot of bed to hold footboard for balance & wanted to perform toe raises and calfstretches. ?? He maintained hand-hold for balance to bend over and picker / packer object from floor. ?? Amb out of room around hallway once then back in his room he reached for cantalope & while RN looking for recliner, went back in hallway to walk around unit again. ?? Returned to his room but he asked to walk again, so took a 3rd lap around unit after tied pants tighter and tucking length into socks. ?? During walk required min A for 1st walk, CGA for 2nd walk, and very close supervision w/ him reaching out for surfaces to hold since he asked to try without assist. I noticed when he turned his head or looking @ items along way or reaching for an item is when he'd loose his balance, side-step orcrossed feet once and once needed assist to correct, otherwise did self-correct most of time. ?? He also wanted to give something to the RN so climbed up 3 steps using railing & CGA to nurses station & back down steps slowly. ?? Stood @ sink to wash hands. ?? Ended session with him sitting in recliner in his room, PARTS LISTER to take vitals and bedside table in front of him w/ fruit salad & garden salad left to much on from prior meal. ?? Pt left in bed/chair position following visit w/ call [place] in reach. Education: Pt reminded to use call button before he gets up to move, only move with staff assist, he verbalized understanding. Assessment: Akshat [place] Serrano was seen today for physical therapy treatment session for continuation of POC. Pt sitting up in bed-chair all day & on c-diff precautions until results of culture returned negative in later afternoon. He was eager to get out of his room to walk. Able to walk in hallway with 1 assist for balance assist. He was eager to to keep walking so did 3 laps and wanted to do more but asked him to sit for vitals and walk again later with nurses. Reminded him he's not going to be able to regain all in 1 day, he didn't recall how many days he's been hospitalized. Pt willbenefit from ongoing therapeutic interventions to achieve therapy goals. Discharge Recommendations: Based on the current findings, Anticipated Discharge Disposition: inpatient rehabilitation facility, home with assist(Rehab vs Home: based on progress) when medically ready for hospital discharge. Consult Recommendations: No other consults recommended at this time. Equipment needs: ongoing assess Goals: To be achieved by 07/19/19: Working on independence with all goals (today required 1 person CGA) ?? 1. Pt. to demonstrate knowledge of safety precautions and will appropriately request assistance forfunctional activities and to mobilize. 2. Pt. to perform bed mobility independently. 3. Pt. to perform ALL transfers with CGA using a LRAD mechanical lift. 4. Pt. to ambulate 50 feet with CGA using a LRAD, no LOB. 5. Family or caregiver to demonstrate understanding of therapeutic interventions to support the care of the patient. 6. Pt will tolerate progression towards upright with stable vital signs. ?? Plan: Therapy Frequency: 2-4 times/wk for therapy including balance training, bed mobility training, gait training, home exercise program, patient/family education, stair training, strengthening and transfer training. Patient/family understand and agree with plan as stated above. Time IN / OUT: 4:12-4:35 Total Evaluation Minutes, Physical Therapy: 23(TE-F) CARLA MARTINEZ, PT Pager: [phone] Physical Therapy Inpatient Rehabilitation Department * Consult Note - Jarvis Alvarado MD - 07/14/2019 7:18 AM EST Psychiatric Inpatient Consultation Follow Up Note Time Spent: 30 minutes Information Sources: Patient. Electronic Medical Record. This patient was discussed with Dr. Escudero. See his note for confirmatory and/or revisionary documentation. Reason for consultation: I have been asked by attending physician Gracy Talley MD to see Akshat Serrano for recommendations regarding the management of agitation, and I have outlined my findings and recommendations in this report. History of Present Illness: Kumar is a 38 year old male with a past psychiatric history of polysubstance use disorder who was admitted to [facility] for agitation requiring sedation and intubation. Agitationwas most likely secondary to substance intoxication and/or substance withdrawal. Today, Kumar reports that he's going great. He endorses mild withdrawal symptoms but otherwise has tolerated stopping quetiapine and starting Depakote. Previously he was getting outpatient Suboxone from a Suboxone and methadone clinic in [place], [place], but has not gone there for over a year. Hesays he got into it with another patient while at the clinic and was then discharged from the clinic. Previously was stable on 8mg daily of Suboxone. Since then, he has been using Suboxone bought of the street. More recently, he has relapsed and been using everything. Review of Systems: Constitutional: no fevers Respiratory: no cough GI: no vomiting, + nausea Neurological: no tremor Psychiatric: See above Extent of history Determination: Basil descriptors, reviewed systems, and level of history with x. HPI Descriptors 1-3 1-3 4 + Reviewed Systems 0 1 2-9 Level of Hx PF EPF X D Physical Exam: Last value Range last 24 hrs Temperature Temp: 37 ??C (98.6 ??F) Temp: [36.6 ??C (97.9 ??F)-37.3 ??C (99.1 ??F)] Heart Rate Heart Rate: 56 Heart Rate: [48-74] Blood Pressure BP: 124/77 BP: (115-154)/(53-97) Respiratory Rate Resp: 22 Resp: [17-41] SpO2 SpO2: 96 % SpO2: [94 %-99 %] Musculoskeletal System: Muscle Strength/Tone (note atrophy, abnormal movements): no abnormal movements Gait and Station: deferred Mental Status Evaluation: ?? Appearance: Age appropriate male, casually dressed, appropriately groomed ?? Behavior: no psychomotor retardation or agitation, calm and cooperative, appropriate eye contact ?? Speech: non-pressured, spontaneous, loud volume ?? Language: fluent, non-profane ?? Mood: alright ?? Affect: mood congruent, appropriate range ?? Thought Process: linear, goal-directed ?? Associations: intact ?? Thought Content: denies SI and HI ?? Perception: Not seen responding to internal stimuli, no AH, no VH ?? Orientation: grossly oriented ?? Attention/Concentration: intact to conversation ?? Cognition: appropriate ?? Memory: recent and remote recall intact ?? Fund of Knowledge: age appropriate ?? Insight: fair ?? Judgment: fair Pertinent Diagnostic Testing: Last 3 wbc, hgb, hct plt Recent Labs 07/14/1910407/13/193907/12/1934 WBC 16.1* 15.6* 9.8* HGB 13.8 13.5* 11.9* HCT 41.3 38.4* 35.3* PLATELET 294 278 226 Last 3 Lytes Recent Labs 07/14/195 07/14/1910407/13/19201907/13/193907/12/19 003 NA -- 140 -- -- 140 -- 142 K 3.6 3.8 3.7 < > 3.4* < > 2.8* CL -- 103 -- -- 101 -- 103 CO2 -- 25 -- -- 25 -- 27 BUN -- 13 -- -- 15 -- 20 CREATININE -- 0.72* -- -- 0.64* -- 0.83 < > = values in this interval not displayed. Last 3 LFTs Recent Labs 07/05/19 2040 AST 27 ALT 10 ALKPHOS 50 BILITOT 0.2 Last Ca, Mg, Phos Recent Labs 07/14/19 0415 07/14/19 010 CALCIUM -- 9.1 PHOS 2.9 -- Last 3 TFT Recent Labs 07/07/19 1300 TSH 2.66 Last 3 Lipids Recent Labs 07/07/19 0419 TRIG 133 EKG QTc Recent Labs 07/09/19 0849 07/10/19 0338 07/12/19 1020 QTCCALC 459 459 459 442 398 QRSDURATION 100 100 100 104 112 Extent of Exam Determination: Basil completed bullets & level of exam with ? X? Bullets Completed 1-5 6-8 X 9+ Level of Exam PF EPF X D Assessment: Kumar is a 38 year old male with a past psychiatric history of polysubstance use disorderwho was admitted to [facility] for agitation requiring sedation and intubation. Agitation was most likelysecondary to substance intoxication and/or substance withdrawal. Kumar reports no side effects from changing his medications. Furthermore, he appears quite motivated to address his substance use. He reports benefit from the Suboxone doses he has received here. Will recommend continuing COWS with PRN Suboxone as his withdrawal may be prolonged after receiving Fentanyl while sedated. Will also involve [facility] to provide resources for continuing Suboxone on an outpatient basis. Primary Diagnosis: polysubstance use disorder, delirium (resolved) Plan/Recommendations: - continue Depakote 250mg TID scheduled + 125mg BID PRN - continue COWS and Suboxone order set - will involve [facility] for resources - psychiatry will continue to follow - page consult psychiatry (#[phone]) with questions or concerns Recommendations were communicated to primary steaming cabinet tender. Coding Determination Complexity of MDM Determination: Basil appropriate # of Dx, Amt, complexity of date, Risk, & corresponding level of MDM with x.2 out of 3 elements in row must be met to qualify. # of Possible Diagnoses or Management Options Amount and/or Complexity of Data Risk of Complications, Morbidity, and or Mortality Type of Decision Making Minimal Minimal/None Minimal Straightforward Limited Limited Low Low Multiple Moderate Moderate Moderate Extensive Extensive High High Subsequent Hospital Day Service Code Determination: Basil Hx, Exam, MDM & MK/CPT Code with x. 2 out of # carpenter components in the row must be met toqualify. HISTORY EXAM MDM MK/CPT CODE PF PF Straightforward/Low 3005/49108 EPF EPF Moderate 3015/25040 D D High 3025/51869 Associated attestation - Faustino Escudero MD - 07/19/2019 9:37 AM EST Psychiatry Attending Note I discussed this patient's situation with the resident but did not see the patient. I contributed to the formulation and treatment planning as documented in the resident's note. Faustino Escudero MD Psychiatry Consultation Pager: [phone] * Plan of Care - Mirlande Storey RN - 07/14/2019 6:15 AM EST Problem: Skin Integrity Impairment, Risk/Actual (Adult) Goal: Identify Related Risk Factors and Signs and Symptoms Related risk factors and signs and symptoms are identified upon initiation of Human Response Clinical Practice Guideline (CPG) Outcome: Ongoing (Interventions Implemented as Appropriate) 07/14/19 06 Skin Integrity Impairment, Risk/Actual Skin Integrity Impairment, Risk/Actual: Related Risk Factors edema;fluid/nutrition status;metabolicimbalance;mechanical factors;infection/disease process;immobility;moisture Signs and Symptoms (Skin Integrity Impairment) other (see comments) (excoriation) Problem: Alcohol Withdrawal Acute, Risk/Actual (Adult) Goal: Signs and Symptoms of Listed Potential Problems Will be Absent, Minimized or Managed (AlcoholWithdrawal Acute, Risk/Actual) Signs and symptoms of listed potential problems will be absent, minimized or managed by discharge/transition of care (reference Alcohol Withdrawal Acute, Risk/Actual (Adult) CPG). Outcome: Ongoing (Interventions Implemented as Appropriate) 07/14/19610 Alcohol Withdrawal Acute, Risk/Actual Problems Assessed (Alcohol Withdrawal Syndrome) all Problems Present (Alcohol Withdrawal Syndrome) situational response Problem: Airway, Artificial (Adult) Goal: Signs and Symptoms of Listed Potential Problems Will be Absent, Minimized or Managed (Airway,Artificial) Signs and symptoms of listed potential problems will be absent, minimized or managed by discharge/transition of care (reference Airway, Artificial (Adult) CPG). Outcome: Outcome (s) achieved Date Met: 07/14/19 07/14/19610 Airway, Artificial Problems Assessed (Artificial Airway) all Problems Present (Artificial Airway) none Problem: Patient Care Overview Goal: Plan of Care Review Outcome: Ongoing (Interventions Implemented as Appropriate) 07/14/19 06 Coping/Psychosocial Plan Of Care Reviewed With patient Plan of Care Review Progress progress toward functional goals as expected OUTCOME EVALUATION NOTE: OUTCOME SUMMARY: Patient hemodynamically stable. Oriented to person and place. Slept for a few hours overnight. Patient at times incontinent of stool and urine. No problems with aggression or agitation for the shift.Patient pleasant and cooperative. PLAN MOVING FORWARD: Transfer out of ICU, work with therapy to get stronger INDIVIDUALIZED FALL PREVENTION INTERVENTIONS: Patient-specific fall risk factors per assessment: [current deficits]: Patient impulsive at times, IV tubing and monitoring cords Assistance [level of assistance required for transfers and ambulation]: Patient requires two personassistance for transfers Supervision [direct monitoring required during toileting and ADLs]: Patient requires 1-2 person assistance for ADLs Surveillance [continuous indirect monitoring]: Patient on telemetry, blood pressure and pulse ox monitoring Patient-specific fall prevention interventions for sensory deficits provided, if applicable: [X] Yes * Plan of Care - Jolene Holloway RN - 07/13/2019 6:20 PM EST Problem: Patient Care Overview Goal: Fall Prevention-Safe Patient Handling 07/13/191818 Restraint Interventions Safety Promotion/Fall Prevention safety round/check completed;elopement precautions initiated Activity Activity Type activity adjusted per tolerance Activity Assistance Provided assistance, 2 people Positioning Body Position independent Daily Care Interventions Self-Care Promotion independence encouraged Mancera Fall Risk History of Falling 0 Secondary Diagnosis 15 Ambulatory Aids 0 Intravenous Therapy/Heparin/Saline Lock 20 Gait/Transferring 20 Mental Status 15 Score 70 OTHER Mancera Fall Risk High Comments: OUTCOME EVALUATION NOTE: OUTCOME SUMMARY: Pt is A/O to self and place. Able to follow commands and move all extremities. On RA. Denies pain. SB to NSR with HR 45-60s. BP stable. Speech and swallow eval done at bedside. TF stopped. Pt diet advanced to regular, tolerating well. NGT still in place to keep access but plan to be removed tomorrow. Pt incontinent of urine and stool early in shift. Able to use bedside urinal with assistance with adequate UOP. Pt had 2x BM today. CDiff screening sent d/t frequent loose stools. Placed on Contactprecautions for screening. Restraint orders d/c per hospital medicine and pt has been appropriate. Awaiting bed floor. PLAN MOVING FORWARD: Continue to Monitor. Remove NGT tomorrow. Transfer pt to lower level of care when bed becomes available. INDIVIDUALIZED FALL PREVENTION INTERVENTIONS: Patient-specific fall risk factors per assessment: [current deficits]: Generalized weakness. Assistance [level of assistance required for transfers and ambulation]: 2x person assist. Supervision [direct monitoring required during toileting and ADLs]: Close supervision. Frequent RN room checks. Surveillance [continuous indirect monitoring]: [facility] Monitoring. Patient-specific fall prevention interventions for sensory deficits provided, if applicable: [X] N/A * Consult Note - Minh Whitley MD - 07/13/2019 2:52 PM EST Psychiatric Initial Inpatient Consultation Note Time of Consultation: 7:30 PM Time Spent: 45 minutes Information Sources: Patient. This patient was discussed with Dr. Blankenship. See her note for confirmatory and/or revisionary documentation. Reason for consultation: I have been asked by attending physician Gracy Talley MD to see Akshat Serrano for recommendations regarding the management of agitation, and I have outlined my findings and recommendations in this report. History of Present Illness: Akshat Serrano presented to the hospital from [facility] with altered mental status and found to havepneumonia. Psychiatry was consulted for agitation recommendations. Akshat has received multiple medications for agitation including propofol, fentanyl, Haldol, and Seroquel. History is limited due to patient's limitation and confusion. He states that he overdosed when he went to see his mother because he felt like no one cared about him. He states that he has been using alcohol, marijuana, tobacco, crack cocaine, and fentanyl. He states he has been drinking a 12 pack a day of beer, smoking a couple joints a day, smoking a pack of cigarettes a day, smoking crack of an unknown amount, and smoking fentanyl every day of an unknown amount. He states he started using crack and fentanyl when he moved back from [place] a couple months ago. He does state he suffered from a depressed mood, but he denies depressed mood at interview. He perseverates about his mother possibly being in the hospital. He is not able to give details about his mood. He denies SI, HI, AVH. Psychiatric Review of Systems: Sustained Depressed Mood: Yes Sustained Elevated Mood: No Sustained Irritable Mood: No Flashbacks: Nightmares: Panic Attacks: Chronic Worry: Psychotic Symptoms: No Obsessions/compulsions: Violence: No Self Harm: No Past Psychiatric History: Prior diagnoses: Anxiety, depression, ADHD Past hospitalization and location: Hospitalized as a teenager for depression Suicide attempts: Denies Past psychiatric medications (include dose, length of use, response, reason for stopping): Focalin and gabapentin for ADHD and anxiety respectively Substance Use History/Treatment: Polysubstance use detailed above Problem List: Patient Active Problem List Diagnosis Code ??? Depression F32.9 ??? ADHD (attention deficit hyperactivity disorder) F90.9 ??? Active smoker F17.200 ??? Herpes B00.9 ??? AMS (altered mental status) R41.82 ??? At risk for danger to others Z91.89 ??? Agitation requiring sedation protocol R45.1 ??? Pneumonia due to Streptococcus pneumoniae J13 ??? Hypernatremia E87.0 ??? Respiratory failure with hypoxia J96.91 ??? Hyperactive behavior F90.9 ??? DIFFICULT AIRWAY T88.4XXA ??? Narrowing of airway J98.8 Past Medical/Surgical History: Past Medical History: Diagnosis Date ??? No known problems Past Surgical History: Procedure Laterality Date ??? HERNIA REPAIR ??? IMPLANT MESH HERNIA REPAIR/DEBRIDEMENT CLOSURE 12/05/2011 IMPLANT MESH FOR INCISIONAL OR VENTRAL HERNIA REPAIR performed by CARLOS ENRIQUE BECK III at [facility] OR ??? REPAIR INCISIONAL HERNIA, REDUCIBLE 12/05/2011 REPAIR INITIAL INCISIONAL OR VENTRAL HERNIA REDUCIBLE performed by CARLOS ENRIQUE EBCK III at [facility] OR Medications: Current Facility-Administered Medications Medication Dose Route Frequency Provider Last Rate Last Dose ??? QUEtiapine (SEROquel) tablet 75 mg 75 mg Oral Daily Michael Jennings MD 75 mg at 07/13/19 1200 ??? QUEtiapine (SEROquel) tablet 150 mg 150 mg Oral Nightly Michael Jennings MD ??? magnesium sulfate 2 g in sterile water 50 mL 2 g Intravenous Once Michael Jennings MD ??? potassium chloride (K-DUR/KLOR-CON) extended release tablet 40 mEq 40 mEq Oral Once Michael Jennings MD ??? potassium, sodium phosphates (NEUTRA-PHOS) 280-160-250 mg oral packet 1.5 g 1.5 g Oral Once Michael Jennings MD ??? docusate sodium (Colace) (10 mg/mL) oral liquid 100 mg 100 mg Oral BID PRN Michael Jennings MD And ??? sennosides (Senokot) (1.76 mg/mL) oral liquid 17.6 mg 17.6 mg Oral BID PRN Michael Jennings MD ??? enoxaparin (LOVENOX) injection 40 mg 40 mg Subcutaneous Nightly Michael Jennings MD 40 mg at 07/12/192011 ??? tube feeding diet 1,900 mL Per NG tube Continuous Michael Jennings MD Stopped at 07/13/19 1205 ??? PHENobarbital (LUMINAL) injection 7.8 mg 7.8 mg Intravenous Q12H Michael Jennings MD 7.8 mg at 07/13/19 1040 ??? haloperidol lactate (HALDOL) injection 5 mg 5 mg Intravenous Q6H PRN Michael Jennings MD 5mg at 07/12/19 2044 ??? folic acid (FOLVITE) tablet 1,000 mcg 1 mg Oral Daily Michael Jennings MD 1,000 mcg at 07/13/19 1040 ??? ipratropium-albuterol (DUONEB) 0.5 mg-3 mg(2.5 mg base)/3 mL nebulizer solution 3 mL 3 mL Nebulization Q4H PRN Michael Jennings MD ??? thiamine (Vitamin B-1) tablet 500 mg 500 mg Per NG tube TID Michael Jennings MD 500 mg at 07/13/19 1039 ??? protein powder 2 Scoop Per NG tube 4 Times Daily Michael Jennings MD 2 Scoop at 07/13/19 0900 ??? sodium chloride 0.9% infusion 10 mL/hr Intravenous Continuous Michael Jennings MD 10 mL/hrat 07/10/19 0600 10 mL/hr at 07/10/19 0600 ??? sodium bicarbonate tablet 650 mg 650 mg Oral Daily PRN Michael Jennings MD ??? sodium chloride 0.9 % (flush) flush 5 mL 5 mL Intravenous BID Michael Jennings MD 5 mL at 07/13/19 0900 ??? sodium chloride 0.9 % (flush) flush 5-20 mL 5-20 mL Intravenous Q1 Min PRN Michael Jennings MD ??? lidocaine (XYLOCAINE) 10 mg/mL (1 %) injection 3 mg 0.3 mL Subcutaneous Once PRN Michael Jennings MD ??? bisacodyl (DULCOLAX) suppository 10 mg 10 mg Rectal Daily PRN Michael Jennings MD ??? glucose (GLUTOSE) 40% oral gel 15-30 g Buccal Q30 Min PRN Michael Jennings MD Or ??? dextrose 10% infusion 250 mL Intravenous Q30 Min PRN Michael Jennings MD Stopped at 07/13/19 0855 Or ??? glucagon (human recombinant) injection SolR 1 mg 1 mg Intramuscular Q30 Min PRMichael Arriaga MD ??? insulin lispro (HumaLOG) VIAL injection 1-4 Units 1-4 Units Subcutaneous Q4H [facility] Michael Jennings MD Medical Review of Systems: Constitutional: -Fever HEENT: + Lacrimation Cardiovascular: -Chest pain Respiratory: + Cough GI: + Diarrhea /WARE FINISHER (include LMP if applicable): Endocrine: Musculoskeletal: Integumentary: Neurological: + Problems with coordination and grasp Hematologic/Lymphatic: Allergic/Immunologic: Psychiatric: See above Social History: Currently lives with his friend Rose When asked about it job states, I have on when I get out of here. Family Medical/Psychiatric History: (mental illness, substance use, suicide) Unable to answer Extent of History Determination: Basil # of descriptors, reviewed systems, PFS elements & level of hx with ? X? HPI Descriptors 1-3 1-3 4+ x 4+ Reviewed Systems 0 1 x 2-9 10 Past, Fam, Soc Hx 0 0 x 1 3 Level of Hx PF EPF x D C Physical Exam: Last value Range last 24 hrs Temperature Temp: 37 ??C (98.6 ??F) Temp: [36.8 ??C (98.2 ??F)-37.8 ??C (100 ??F)] Heart Rate Heart Rate: 66 Heart Rate: [49-91] Blood Pressure BP: 119/77 BP: (115-155)/(60-103) Respiratory Rate Resp: 24 Resp: [17-40] SpO2 SpO2: 96 % SpO2: [94 %-99 %] Mental Status Evaluation: Musculoskeletal System: Muscle Strength/Tone (note atrophy, abnormal movements): Difficulty moving upper extremities Gait and Station: Psychiatric: ?? Appearance: older than stated age , disheveled and Dressed in hospital attire Behavior: cooperative with the interview, calm and intermittent eye contact ?? Speech: normal pitch, normal rate, normal rhythm and soft ?? Language: fluent in nepali ?? Mood: OK Affect: constricted ?? Thought Process: concrete and perserverative ?? Associations: Intact ?? Thought Content: no homicidal ideation no suicidal ideation Perception: denied auditory hallucinations denied visual hallucinations not observed responding to internal stimuli ?? Orientation: person, time, situation and Mood he said hospital but thinks he is at [facility] ?? Attention/Concentration: Distractible but with redirection can attend interview Cognition: grossly intact by interview ?? Memory: memory impairment noted: Cannot recall recent events ?? Fund of Knowledge: Impaired due to recent medical issues ?? Insight: poor Judgment: poor Pertinent Diagnostic Testing: EEG on 07/06/2019 showing moderate diffuse cortical dysfunction of nonspecific etiology, including drug effect. No epileptiform discharges or seizures on this recording. Extent of Exam Determination: Basil completed bullets and level of exam with x. Bullets Completed 1-5 6-8 9+ x All Psych & Constitutional + 1 Musculoskeletal Level of Exam PF EPF D x C Assessment: Akshat Serrano is a 38-year-old male with a past history of polysubstance use and depression. Psychiatry was consulted for agitation recommendations. When he was seen this evening, he was out of restraints and not combative/agitated. It does seem to improve he states he has been agitated most likely due to his substance use. A limited history was collected due to patient's impairment. Per chart review, he has received multiple medications for agitation including propofol, fentanyl, Haldol, and Seroquel. At this time, I would recommend discontinuing Seroquel due to anticholinergic effects potentially contributing to worsening delirium. I would also discontinue Haldol as needed because it is less likely to be effective for impulsivity/aggression and is most likely more sedating. Also, he is not psychotic, so there is no long-term use of Haldol. I would start Depakote to assist with agitation and impulsivity. If he is not able to tolerate p.o. Depakote, then we could use liquid Depakene. Also, it would be beneficial to start the Suboxone orders that to dose Suboxone because withdrawal from opioids could be contributing to agitation. I did place the orders for the Suboxone order set per request of the primary team. Psychiatry will continue to follow. Diagnosis: Delirium and agitation secondary to drug overdose, unspecified mood disorder Plan/Recommendations: - Discontinue Seroquel scheduled and Haldol as needed - Start Depakote 250 twice daily scheduled and Depakote 125 twice daily as needed - Start Suboxone order set to assist with dosing Suboxone Non-Pharmacologic Protocol for Delirious Patients ?? Orientation: ?? Provide visual and hearing aids ?? Utilize cues such as calendars and clocks ?? Encourage communication and reorient patient repeatedly ?? Have familiar objects from patient's home in room ?? Attempt consistency in Nursing Staff ?? Allow television during the day with daily news ?? Non-verbal music ?? Environment: ?? Sleep hygiene (dim light at nighttime, bright during the day) ?? Limit excess noise (staff, equipment, visitors at night) ?? Ambulate or mobilize patient early and often ?? Monitor frequency of bowel movements ?? Medication ?? Minimize deliriogenic meds (anticholinergics, narcotics, sedatives, histamine blockers, corticosteroids) If questions, page psychiatry at #[phone]. Recommendations were communicated to primary steaming cabinet tender. Coding Determination Complexity of MDM Determination: Basil appropriate # of Dx, Amt, complexity of date, Risk, & corresponding level of MDM with x.2 out of 3 elements in row must be met to qualify. # of Possible Diagnoses or Management Options Amount and/or Complexity of Data Risk of Complications, Morbidity, and or Mortality Type of Decision Making Minimal Minimal/None Minimal Straightforward Limited Limited Low Low x Multiple x Moderate Moderate x Moderate Extensive Extensive x High High Inpatient Consult Service Code Determination: Basil Hx, Exam, MDM & MK/CPT Code with ? X? . All carpenter components in the row must be met to qualify for a given code. HISTORY EXAM MDM MK / CPT CODE PF PF Straightforward 3200 / 82704 EPF EPF Straightforward 3210 / 46634 x D D Low 3220 / 65232 C C x Moderate x 3230 / 35850 C x C High 3240 / 62937 Associated attestation - Faustino Escudero MD - 07/14/2019 10:05 AM EST Attending Inpatient Psychiatry Attestation I saw and evaluated the patient without the above named resident and discussed the case with the resident within 24 hours. I reviewed the patient's history during the visit and I agree with the details as written. My exam confirms the resident's findings. The assessment and plan were formulated in discussion with me and I agree with them as documented. Faustino Escudero MD Psychiatry Consult Pager: [phone] * Plan of Care - Kylah Gordon, LITHOGRAPHIC STRIPPER - 07/13/2019 10:46 AM EST Speech Therapy Bedside Swallow Evaluation Patient Profile: Akshat Serrano is a 38 y.o. male admitted on 07/05/2019 for altered mental status and respiratory failure. PMHx of ADHD, opiate and etoh use. He presented to [facility] morning of 07/03/19 via EMS with altered mental status presumed to be secondary to ingestion and right leg pain (subtle cortical defect at the tibiofibular joint, felt to be negative by their ortho). He was noted to be uncooperative with staff and physically combative eventually leading to his intubation. Laboratory studies at [facility] were remarkable for a WBC of 14.9, Ammonia of 45, and a Utox postive for EtOH, THC and cocaine. Based on his level of agitation the staff also felt PCP may be a potential ingestion. A head CT was negative for intracranial pathology. CT of the C/A/P showed R>L bibasilar consolidation consistent with aspiration and/or pneumonia. Continues to require seroquel and haldol for agitation. Extubated yesterday, no airway issues. Got decadron for airway swelling. LITHOGRAPHIC STRIPPER consulted for bedside swallow evaluation. Prior Level of Swallow Function: Patient is an unreliable reported. No documented dysphagia. Subjective: Patient in bed. 2 friends present, one friend presenting water via oral swab. Patient lethargic with slowed responses. Cooperative with evaluation. Objective: Pt seen for evaluation today. Pain: Denies pain at this time. Respiratory Status: Room air -Intermittently tachypneic Vision: WFL per pt Hearing: WFL Current Diet: NPO diet (Give Meds) Feeding / Oral Care Status: Pt is dependent (bilateral wrist restraints) Cognitive-Linguistic Status: lethargic. Oriented only to self and place (reported date as 2028, month as October) -Unable to tell me his age Follows Commands: Follows single step commands, Requires increased time to complete, Requires repetition Positioning: HOB at 80 degrees Oral / Laryngeal Mechanism Clinical Assessment: ?? Lingual: Tongue protrudes midline. Adequate ROM with lateralization. ?? Labial / Buccal: Symmetrical lip retraction bilaterally ?? Velar: Velar elevation present ?? Sensation: Appears intact ?? Vocal fold function and airway protection: Strong, dry cough. Voice is clear. Mildly harsh vocalquality. ?? Speech Intelligibility: Speech is slowed, dysarthric. Imprecise articulatory contacts. ?? Mucosa: WFL ?? Dentition: Missing a couple teeth Bolus Presentation(s) ?? Ice chips ?? Thin liquid via spoon, via straw ?? Puree ?? Regular solid Oral Preparatory Phase ?? Mastication: Efficient mastication ?? Oral Transit: Timely oral transit ?? Bolus Cohesion: Adequate bolus control/cohesion ?? Labial Seal / Loss: Functional labial seal ?? Oral Stasis: Negative oral stasis Pharyngeal Phase ?? Laryngeal Elevation: Present ?? Vocal quality change: Negative ?? Cough / throat clear: Strong, dry cough not correlated with PO trials ?? Pt. complaint of food getting stuck: Negative ?? Fatigue across trials: No ?? Respiratory rate and respiratory swallow pattern: No change ?? Required multiple swallows per bolus Esophageal Phase ?? Appears to be WFL, No overt clinical s/s of esophageal phase dysphagia noted during this evaluation. Education: Patient educated on results and recommendations, and verbalized understanding. Patient status, treatment and swallow recommendations were discussed with nursing. Assessment: Patient seen for bedside swallow evaluation s/p extubation. Patient oriented only to self and place. Speech is dysarthric with delayed responses. Intermittent strong, dry cough without POtrials. Patient presents with grossly intact oral swallow function. Suspect mild pharyngeal dysphagia 2/2 requiring multiple swallows per bolus. No overt s/sx of aspiration across trials. Recommendations as below. Diagnosis: normal oral swallow, suspect mild pharyngeal dysphagia Recommendations: Diet: Regular solids, Thin liquids PO medications: whole with sip of water Aspiration precautions: ?? Supervision needed for all meals ?? Feed only when alert ?? Reduce environmental distractions ?? Needs verbal cues to use recommended strategies ?? Upright position during meals and for at least 30 mins following ?? Small sips and bites while eating ?? Slow rate; swallow between bites ?? Multiple swallows: as needed Pt will benefit from continued LITHOGRAPHIC STRIPPER services while hospitalized Speech Therapy Goals: (To be met by discharge) To be determined by results of Modified Barium Swallow study Pt will tolerate least restrictive diet without evidence of dysphagia / aspiration. Plan: Therapy Frequency: 1-3 more visits Pt./family are in agreement with treatment plan. Total Evaluation Minutes, Speech Language Pathology: 30 Thank you for this consult with this patient. Please feel free to page me with any questions or concerns. Kylah Gordon, MS, CCC-LITHOGRAPHIC STRIPPER Pager: [phone] Speech-Language Pathologist Inpatient Rehabilitation Medicine * Associate Provider Student Progress Note - Sam Kumar APRN - 07/13/2019 7:51 AM EST Critical Care Green Team Progress Note Admitted: 07/05/2019 5:19 PM Hospital day: 8 ICU day: 8 ID: Akshat Serrano is a 38 y.o. male with PMH significant for depression, ADHD, opiate and alcohol use, admitted to ICU for drug overdose, altered mental status, uncooperative with staff and physically combative leading to intubation. Also found to have Strep Pneumo. Hospital/ICU course has been significant for: ?? Altered Mental Status & Agitation: OSH reported combative behavior, refractory to Ketamine IM which progressed to intubation. Unable to wean sedation secondary to agitation and tachypnea. Highdoses of fentanyl, propofol and boluses of midazolam were given upon arrival at [facility]. Midazolam infusion given because of possibility of alcohol withdrawal. 07/06 started on Ketamine gtts without improvement and stopped same day. Treated with Wernicke-dose thiamine. Despite passing SBT agitation continued to be a barrier to extubation. In an attempt to wean his propofol on 07/10/2019, he was loadedwith Phenobarbital, was extubated on 07/11. The phenobarbital was continued to prevent severe agitation with a maintenance dosing. Quetiapine was increased to 50 mg Q6H. Psychiatry consulted because patient remains delirious and altered yet nonfocal on 07/12. ?? Pneumonia, Strep Pneumo: found when sputum was taken for concerns of aspiration which was cultured and found to be Strep Pneumonia. CXR supported this with consolidation in the right lower lobe. Was treated with Ceftriaxone 07/05-07/09/2019. ?? Difficult airway, absent cuff leak: from OSH no difficulty was indicated on records from the laryngoscopy but when passing a 7.5 ETT OSH had difficulty they presumed stenosis, thus used a 7 ETT instead. On bronchoscopic examination no tracheal stenosis was seen and demonstrated edematous supraglottic structure with unclear if arytenoid vs epiglottis. On 07/11/19 patient was successfully extubated and placed on nasal cannula. ?? Refeeding syndrome: Patient on tube feeds and developed hypomagnesemia, hypokalemia, and hypophosphatemia which were repleted 24-hour events: Per nursing patient continues to moan, restless and awake. Patient still remains incontinent of stool and urine. Stool is loose and approximately Q2H. Is able to follow commands more and more oriented but still has moments unaware of surroundings. Patient did need 1 dose of IV Halodol which is lessthan previous night. Last value Range last 24 hrs Temperature Temp: 37.2 ??C (99 ??F) Temp: [36.8 ??C (98.2 ??F)-37.8 ??C (100 ??F)] Heart Rate Heart Rate: 61 Heart Rate: [48-91] Blood Pressure BP: 119/60 BP: (119-161)/(60-133) Respiratory Rate Resp: (!) 31 Resp: [17-40] SpO2 SpO2: 97 % room air SpO2: [94 %-99 %] Art BP BP (Arterial Line): -- Infusions: ??? tube feeding diet 1,900 mL (07/12/19 1700) ??? sodium chloride 0.9% 10 mL/hr (07/10/19 06) ??? sodium chloride 0.9% Stopped (07/10/19 06) Recent Labs 07/10/19 0250 PHART 7.40 [id number] 44 PO2ART 62* [id number] 26.7* Intake/Output Summary (Last 24 hours) at 07/13/2019 0751 Last data filed at 07/13/2019 0600 Gross per 24 hour Intake 944 ml Output 500 ml Net 444 ml Output: Urine 500 Stool 6x Physical Exam: General: patient appears comfortable laying in bed HEENT: atraumatic, normocephalic, pupils equal round and reactive to light, approximately 6 mm Neuro: alert and oriented to self, place and year. Moves all extremities spontaneously. More interactive and aware of surroundings Pulmonary: intermittent coughing, Clear to ausculation bilaterally, breathing comfortably, no wheezes, rales or rhochi Cardiovascular: RRR, S1S2 no obvious murmur, rubs, gallops Abdomen: Soft, non-tender, normoactive bowel sounds : no catheter present, barrier cream present Extremities: no clubbing, cyanosis or edema, 2+ peripheral pulses Skin: pink, warm and dry Labs: Last 3 wbc, hgb, hct plt Recent Labs 07/13/19 0040 07/12/19 0035 07/11/19 0035 WBC 15.6* 9.8* 8.7 HGB 13.5* 11.9* 12.0* HCT 38.4* 35.3* 35.5* PLATELET 278 226 208 Last 3 Lytes Recent Labs 07/13/19 0740 07/13/19 0515 07/13/19 0040 07/12/19 0035 07/11/19 0552 NA -- -- 140 -- 142 141 K 3.6 3.9 3.4* < > 2.8* 4.5 CL -- -- 101 -- 103 104 CO2 -- -- 25 -- 27 28 BUN -- -- 15 -- 20 22* CREATININE -- -- 0.64* -- 0.83 0.69* < > = values in this interval not displayed. Last 3 LFTs Recent Labs 07/05/19 2040 AST 27 ALT 10 ALKPHOS 50 BILITOT 0.2 Last Ca, Mg, Phos Recent Labs 07/13/19 0740 07/13/19 0040 CALCIUM -- 9.2 PHOS 2.6 2.4* Last 3 Coags No results for input(s): PT, INR, PTT in the last 168 hours. Last 3 ProBNP, Trop, CK No results for input(s): CK, TROPONINT, PROBNP in the last 168 hours. Microbiology: Date Specimen Findings 07/12/2019 C. Difficile 07/05/2019 Blood culture No growth at 5 days Antimicrobials: Medication: Start Date Stop Date Indication Cefriaxone 07/05/2019 07/09/2019 Strep pneumonia PNA ECG: nonspecific ST segment changes not changed from previous EKG, marked sinus bradycardia with sinus arrhythmia, QT interval 450 Imaging: XR Chest one View: IMPRESSION ?? No pneumonia. ?? Improved aeration of the lungs. Assessment: 38 M presented with drug overdose, altered mental status, and resolved pneumonia was previously ventilated but was extubated 07/11/2019. He is less agitated and does not report any pain. Altered mental status is improving able to orient to place and time and form coherent words. Delirium seems most likely because patient does not appear critically ill, fluctuating mental status, and withdrawing from ETOH. Low grade temperature with a leukocytosis (9.8->15.6) suggest potentially an infectious cause in the presence of frequent loose stools c. Diff is likely but since patient has been intubated and had a basilio catheter those also need to be checked. Plan: Neuro: Delirium and agitation ?? Discontinue Quetiapine 50 mg Q6H, Start Quetiapine 75 mg in AM, 150 mg QHS ?? Encourage normal sleep-wake cycles Pulm: Cough in setting of leukocytosis and low grade temp ?? CXR CV: No acute issues at this time ?? Bradycardia resolved GI: Altered mental status with aspiration risk ?? Swallow eval at bedside ?? C. Difficile sample for frequent loose stools with a leukocytosis and low grade temperatures ?? Continue feeding tube until swallow eval done Renal/FEK: Refeeding syndrome ?? Continue to replete Mg, Phos, K as needed ?? Daily BMP Hematology: ?? Continue Lovenox ?? Daily CBC with diff ID: leukocytosis and low grade temperature ?? CXR, urine culture, c. Difficile pending Endocrine: No acute issues at this point ?? Monitor for hypo/hyper(glyemica) Other prophylaxis: Heparin for DVT prophylaxis GI prophylaxis not indicated HOB > 30 Chlorhexidine mouth care Mepliex to sacrum PT/OT: recommendation inpatient rehab facility Lines/Tubes/Drains: R PICC NG tube for tube feeds PIV Consults: Psychiatry Decision Making: Code Status: full Disposition: stable for transfer off the ICU Marina GOMEZ July 13, 2019 Critical Care Green Team (pager [phone]) I supervised Marina in the management of this patient. Overall his toxic- metabolic encephalopathy has been improving, with slowly resolving delirium following extubation. Suspicion for C Diff is relatively low, but will assess. 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 Haldol given x1 at beginning of shift. Patient incontinent of stool and urine multiple times throughout shift, cleaned appropriately. VSS, no complaints of pain overnight. PLAN MOVING FORWARD: Transfer to lower level of care. INDIVIDUALIZED FALL PREVENTION INTERVENTIONS: Patient-specific fall risk factors per assessment: [current deficits]: Altered mental status, generalized weakness. Assistance [level of assistance required for transfers and ambulation]: Moderate assist. Supervision [direct monitoring required during toileting and ADLs]: Total care. Surveillance [continuous indirect monitoring]: Bedside monitor. Patient-specific fall prevention interventions for sensory deficits provided, if applicable: n/a. * Plan of Care - Lex Higgins RN - 07/12/2019 7:32 PM EST Problem: Patient Care Overview Goal: Plan of Care Review Outcome: Ongoing (Interventions Implemented as Appropriate) 07/12/19 2359 Coping/Psychosocial Plan Of Care Reviewed With patient;significant other Plan of Care Review Progress progress toward functional goals as expected Outcome Evaluation Outcome Summary/Plan Monitor and manage electrolytes, restlessnes and agitation OUTCOME EVALUATION NOTE: OUTCOME SUMMARY: Patient has been restless the whole day with glimpses of cooperation here and there. K phos, sodiumphos, mag given, Q6 labs(electrolytes) and tube feds restarted. PLAN MOVING FORWARD: Monitor and manage electrolytes, restlessnes and agitation INDIVIDUALIZED FALL PREVENTION INTERVENTIONS: Patient-specific fall risk factors per assessment: [current deficits]: Confusion, agitation Assistance [level of assistance required for transfers and ambulation]: 2 person Supervision [direct monitoring required during toileting and ADLs]: NGT, falling Surveillance [continuous indirect monitoring]: [place] icu Patient-specific fall prevention interventions for sensory deficits provided, if applicable: [X] Yes CPG GOAL OUTCOME EVALUATION: * Plan of Care - Clara Lopez, OT - 07/12/2019 3:50 PM EST Occupational Therapy Evaluation Patient profile: Akshat Serrano is a 38 year old man who presented to [facility] on the morning of 07/03/19 via EMS with altered mental status presumed to be secondary to ingestion and right leg pain (subtle cortical defect at the tibiofibular joint, felt to be negative by their ortho). He was noted to be uncooperative with staff and physically combative eventually leading to his intubation. Utox postive for EtOH, THC and cocaine. Based on his level of agitation the staff also felt PCP may be a potential ingestion. A head CT was negative for intracranial pathology. CT of the C/A/P showed R>L bibasilar consolidation consistent with aspiration and/or pneumonia. ??Patient now extubated. Past Medical History: Diagnosis Date ??? No known problems Past Surgical History: Procedure Laterality Date ??? HERNIA REPAIR ??? IMPLANT MESH HERNIA REPAIR/DEBRIDEMENT CLOSURE 12/05/2011 IMPLANT MESH FOR INCISIONAL OR VENTRAL HERNIA REPAIR performed by CARLOS ENRIQUE BECK III at [facility] MA[facility] OR ??? REPAIR INCISIONAL HERNIA, REDUCIBLE 12/05/2011 REPAIR INITIAL INCISIONAL OR VENTRAL HERNIA REDUCIBLE performed by CARLOS ENRIQUE BECK III at [facility] MA[facility] OR Social History: Patient reports he lives alone in [place], but then stated [place]. Home Setup: Unknown DME: Unknown Baseline ADL/Mobility: Unknown Precautions/Special Considerations: Fall; NPO; NGT; 4 point restraints; Confusion Subjective: Okay Objective: Seen today for OT evaluation. Cognitive Status/Behavior: ?? Behavior / Mood: Alert, but fatigued. Confused. ?? Alert and oriented to: Oriented to self only. Unable to state location and time even with verbalcues ?? Follows commands: 1 step, 75% of the time and requires repetition ?? Attention: WFL ?? Safety awareness: decreased insight into deficits; Impulsive Vision & Perception: ?? Unclear. Further assessment required Communication: Slurred speech; Difficult to understand Range of motion, strength, coordination: Bilateral UE PROM are WFL. Hands, wrists, elbows AROM are WFL. UE shoulder 2-/5; Elbow, hand, wrist 3/10 Vin LE AROM grossly 3/5 Sensation: Unable to formally assess Activities of Daily Living: Self-feeding: NPO Grooming: Placed oral swab in patient's R hand. Required hand over hand assistance to swab mouth. Max A Dressing: Dependent Bathing: Placed wash cloth in patient's R hand. Required hand over hand assistance. Max A Toileting: Transfer: Dependent Hygiene: Dependent Functional Mobility: Supine to sit: Utilized the bed chair features to sit fully upright in bed (Foot board off) Sit to stand: N/A Ambulation: N/A Stand to sit: N/A Sit to supine: N/A Rolling: Mod A x 2 to roll for hygiene Balance: Sitting balance: Able to flex forward in bed to sit upright with Min A; Fatigued quickly Standing balance: N/A Vitals: At Rest SpO2 94% Heart Rate 62 Blood Pressure 134/73 Pain: Denies Skin: Appears intact Education: Patient have been educated on Role of occupational therapy/rehabilitation, ADL, Positioning, Safety, Balance, Recommendations and Discharge planning and verbalizes understanding. Patient status, treatment, and mobility recommendations discussed with nursing. Assessment: Pt has been seen for occupational therapy evaluation. Akshat Serrano presents withthe following performance skill deficits and client factors: decreased flexibility/ROM, decreased strength, decreased sitting/standing balance, cognitive deficits, decreased motor control, decreased postural control, deconditioning, compromised mobility status and coping. These performance deficitshave led to activity limitations and participation restrictions in the following areas of occupation: dressing, bathing, grooming, toileting, self-feeding, transfers/mobility, rest/sleep, home management, work, leisure, driving, community mobility, communication and social participation. Increased alertness occurred throughout his session. Oriented to self only and able to follow 1 step commands.He tolerated a full upright posture in bed chair position where he participated with light UB ADL tasks with hand over hand assistance. He will require a post acute inpatient facility to increase inde pendence prior to his discharge. Pt would benefit from further inpatient OT interventions to address performance deficits and maximize participation and independence with occupations of daily living. Equipment needs at discharge: TBD Anticipated Discharge Disposition: inpatient rehabilitation facility Activity Recommendations: ?? Frequent orientation verbally & visually with calendars/clocks/whiteboard ?? Keep glasses, hearing aides, etc within reach & offer to pt as appropriate ?? Utilize tray table mirror for reorientation to self & situation ?? Facilitate a normal sleep-wake cycle ?? Provide brief, clear instruction and direction from one source at a time ?? Reduce extraneous stimulation ?? Provide calming music, favorite TV programs, magazines or newspapers ?? Utilize upright chair position using bed features or transfer to recliner chair as appropriate with mechanical lift ?? Encourage participation in ADL's by providing set up A on tray table and physical assist only asneeded Goals: To be achieved by 07/26/19: Patient will don/doff UB clothing with supervision, seated Patient will don/doff LB clothing with Min A, seated, with AE, as needed Patient will complete toileting tasks (hygiene, clothing management, transfers) with Min A and withAE, as needed Patient will ambulate to/from the bathroom with Min A and with AD, as needed Patient will be A&Ox4 with external cues Patient will self feed with set up, seated, with AE, as needed Patient will complete UB/LB sponge bathing tasks with Min A, while seated with AE, as needed Patient will complete grooming task (comb hair, brush teeth) with CGA, seated Pt will follow multistep step motor command 5/5 times during session Pt will actively participate in AAROM/AROM BUE exercise to promote strengthening for ADL tasks, w/ increase 1/2 grade strength throughout. Plan: OT: Therapy Frequency: 2-3 times/wk Planned OT interventions: Role of occupational therapy/rehabilitation, Transfers, Assistive device/technique, Adaptive equipment training, ADL, Exercise, Positioning, Safety, Precautions/Protocol, Functional Mobility, Home Management, Balance, Recommendations and Discharge planning. Total Evaluation Minutes, Occupational Therapy: 37 (OT eval) 2017 OT Evaluation Code Rationale: ?? Diagnosis & Pertinent Co-Morbidities affecting Plan of Care: see PMHx ?? Occupational Profile & Client History: Brief Expanded Extensive x ?? Assessment of Occupational Performance: 1-3 performance deficits 3-5 performance deficits 5 + performance deficits x ?? Clinical Decision Making: Low Moderate High x Clinical decision making of high complexity using standardized patient assessment instrument and measurable assessment of functional outcome. Pager: [phone] CLARA LOPEZ OT 07/12/2019 Occupational Therapy Rehabilitation Department * Plan of Care - Amanda Craig, PT - 07/12/2019 2:28 PM EST Physical Therapy Evaluation Patient profile:Akshat Serrano is a 38 year old man with ADHD, opiate and etoh use who presents to the MICU on 07/05/19 with altered mental status and respiratory failure. . He presented to [facility] on the morning of 07/03/19 via EMS with altered mental status presumed to be secondary to ingestion and right leg pain (subtle cortical defect at the tibiofibular joint, felt to be negative by their ortho). He was noted to be uncooperative with staff and physically combative eventually leading to his intubation. Laboratory studies at [facility] were remarkable for a WBC of 14.9, Ammonia of 45, and a Utox postive for EtOH, THC and cocaine. Based on his level of agitation thestaff also felt PCP may be a potential ingestion. A head CT was negative for intracranial pathology. CT of the C/A/P showed R>L bibasilar consolidation consistent with aspiration and/or pneumonia. INTERVAL EVENTS: Extubated yesterday, no airway issues. Got decadron for airway swelling. Continues to require seroquel and haldol for agitation. ?? Active problems: 1. Altered mental status 2. Hypokalemia 3. Hypomagnesemia 4. Hypophosphatemia Patient with the following active problems: Past Medical History: Diagnosis Date ??? No known problems Past Surgical History: Procedure Laterality Date ??? HERNIA REPAIR ??? IMPLANT MESH HERNIA REPAIR/DEBRIDEMENT CLOSURE 12/05/2011 IMPLANT MESH FOR INCISIONAL OR VENTRAL HERNIA REPAIR performed by CARLOS ENRIQUE BECK III at [facility] OR ??? REPAIR INCISIONAL HERNIA, REDUCIBLE 12/05/2011 REPAIR INITIAL INCISIONAL OR VENTRAL HERNIA REDUCIBLE performed by CARLOS ENRIQUE BECK III at [facility] OR Social History: Unable to obtain 2/2 cognitive deficits. Precautions/Special Considerations: 4 pt restraints, decreased safety awareness, fall risk, NGT to suction Mobility and Positioning Recommendations: ?? Place in bed-chair position as tolerated with foot board in place. ?? If OOB use mechanical lift. Subjective: ???I guess...?? Objective: Pt seen for evaluation today. Pain: none reported Vital Signs: At Rest With Activity SpO2 (RA) 95% 95% BP (MAP) 134/73mmHg 139/74mmHg HR 59bpm 64bpm Mental Status: Alert, oriented to self only. Impulsive. Follows 1 step commands inconsistently. PerRn history of intermittent agitation o/n and today. Skin: intact Musculoskeletal: ROM: WFL Strength: BLE grossly 3+/5. B/l shoulder flex ~45 degrees, able to mobilize hands and elbows Sensation: unable to determine 2/2 cognition Bed Mobility: Transitioned to bed chair position (foot board already removed by nsg). Able to alternate releasingfrom restraints (1 at a time per extremity while maintaining a secure hold on the line for safety). - Pt with increased restlessness at times with attempts to scoot forward despite cues to lean forward. - Practiced leaning forward and back with min A x1-2. - Performed BLE LAQ and ankle pumps (increased cues, occasional assist) - Pt with increased fatigue and returned to semi reclined position, bed alarm on, foot board in place Balance: Sitting Static: fair Sitting Dynamic: fair Standing Static: unable Standing Dynamic / Gait: unable Education: patient has been educated on Bed mobility, Exercise, Safety and Role of therapy and needs reinforcement.for Understanding Patient status, treatment, and mobility recommendations discussed with nursing. Assessment: Akshat Serrano was seen today for physical therapy evaluation. Presents with cognitive deficits, decreased insight to deficits (in restraints for safety), decreased ROM, decreased strength, balance deficits, and new lines and tubes. Alert to self only, intermittently restless. Follows command inconsistently but remained appropriate during session. Tolerated transition to full bed-chair position and performed exercises with assist. Overall, participation limited primarily by cognitive deficits however will continue to assess and progress as tolerated. The pt would benefit from skilled therapy services while in the hospital to maximize functional abilities. Discharge Recommendations: Based on the current findings, Anticipated Discharge Disposition: inpatient rehabilitation facilitywhen medically ready for hospital discharge. Consult Recommendations: No other consults recommended at this time. Equipment needs: TBD Goals: To be achieved by 07/19/19: 1. Pt. to demonstrate knowledge of safety limitations and precautions and will appropriately request assistance for functional activities and to mobilize. 2. Pt. to perform bed mobility independently. 3. Pt. to perform ALL transfers with CGA using a LRAD mechanical lift. 4. Pt. to ambulate 50 feet with CGA using a LRAD. 5. Family or caregiver to demonstrate understanding of therapeutic interventions to support the care of the patient. 6. Pt will tolerate progression towards upright with stable vital signs. Plan: Therapy Frequency: 2-4 times/wk for therapy including balance training, bed mobility training, gait training, home exercise program, patient/family education, stair training, strengthening and transfer training. Patient/family understand and agree with plan as stated above. 2017 PT Evaluation Code Rationale: ?? Diagnosis & Pertinent Co-Morbidities, personal factors, and present illness affecting Plan of Care: (see above); Additional personal factors or co- morbidities that impact plan: ?? Total # of Factors: 0 1-2 3+ x ?? Examination of body system impairments, functional limitations and behaviors, and/or participation restrictions. Addressing 1-2 elements Addressing 3 + elements Addressing 4 + elements x ?? Clinical presentation: See assessment above. Stable/Uncomplicated Evolving/Fluctuating Symptoms Unstable/Unpredictable x ?? Clinical decision making of high complexity based on pt's functional performance as outlined in this evaluation. Time IN / OUT: 151p- 228 Total Evaluation Minutes, Physical Therapy: 23(eval) Amanda Craig PT, DPT Pager: [phone] Physical Therapy Inpatient Rehabilitation Department * Associate Provider Student Progress Note - YairDeedeewojciech Lima - 07/12/2019 10:41 AM EST Critical Care Progress Note Admitted: 07/05/2019 5:19 PM Hospital day: 7 ICU day: 7 ID: Akshat Serrano is a 38 y.o. male with PMH significant for depression, ADHD, opiate and alcohol use, admitted to ICU for drug overdose, altered mental status, uncooperative with staff and physically combative leading to intubation. Also found to have Strep Pneumo. Hospital/ICU course has been significant for: ?? Altered Mental Status & Agitation: OSH reported combative behavior, refractory to Ketamine IM which progressed to intubation. Unable to wean sedation secondary to agitation and tachypnea. Highdoses of fentanyl, propofol and boluses of midazolam were given upon arrival at [facility]. Midazolam infusion given because of possibility of alcohol withdrawal. 07/06 started on Ketamine gtts without improvement and stopped same day. Treated with Wernicke-dose thiamine. Despite passing SBT agitation continued to be a barrier to extubation. In an attempt to wean his propofol on 07/10/2019, he was loadedwith Phenobarbital, was extubated on 07/11. The phenobarbital was continued to prevent severe agitation with a maintenance dosing. Quetiapine was increased to 50 mg Q6H. Psychiatry consulted because patient remains delirious and altered yet nonfocal on 07/12. ?? Pneumonia, Strep Pneumo: found when sputum was taken for concerns of aspiration which was cultured and found to be Strep Pneumonia. CXR supported this with consolidation in the right lower lobe. Was treated with Ceftriaxone 07/05-07/09/2019. ?? Difficult airway, absent cuff leak: from OSH no difficulty was indicated on records from the laryngoscopy but when passing a 7.5 ETT OSH had difficulty they presumed stenosis, thus used a 7 ETT instead. On bronchoscopic examination no tracheal stenosis was seen and demonstrated edematous supraglottic structure with unclear if arytenoid vs epiglottis. On 07/11/19 patient was successfully extubated and placed on nasal cannula. ?? Refeeding syndrome: Patient on tube feeds and developed hypomagnesemia, hypokalemia, and hypophosphatemia which were repleted. 24-hour events: Per nursing patient has been moaning, restless, but awake. Patient has been incontinent of stool and urine at points. Patient needed 1 dose of 10 mg IV Halodol and 50 mg Seroquel this am due to agitation. Last value Range last 24 hrs Temperature Temp: 37.6 ??C (99.7 ??F) Temp: [36.8 ??C (98.2 ??F)-37.6 ??C (99.7 ??F)] Heart Rate Heart Rate: 55 Heart Rate: [48-78] Blood Pressure BP: 122/72 BP: (109-187)/(54-133) Respiratory Rate Resp: 21 Resp: [17-35] SpO2 SpO2: 97 % on room air SpO2: [94 %-100 %] on room air Art BP BP (Arterial Line): -- Infusions: ??? tube feeding diet 35 mL/hr at 07/12/19 0800 ??? sodium chloride 0.9% 10 mL/hr (07/10/19 0600) ??? sodium chloride 0.9% Stopped (07/10/19 0600) Recent Labs 07/10/19 0250 PHART 7.40 [id number] 44 PO2ART 62* [id number] 26.7* Output: Intake/Output Summary (Last 24 hours) at 07/12/2019 1617 Last data filed at 07/12/2019 0800 Gross per 24 hour Intake 692 ml Output 500 ml Net 192 ml Physical Exam: General: alert, oriented to person but not to time or place, HEENT: Atraumatic, normocephalic, pupils round equal reactive to light. Neuro: opens eyes spontaneously but does not track, moves all extremities spontaneously is in 4 soft restraints Pulmonary: Clear to ausculation bilaterally, breathing comfortably, no wheezes, rales or rhochi Cardiovascular: RRR, S1S2 no obvious murmur, rubs, gallops Abdomen: Soft, non-tender, normoactive bowel sounds : no catheter present Extremities: no clubbing, cyanosis or edema, 2+ peripheral pulses Skin: pink, warm and dry Labs: Last wbc, hgb, hct plt Recent Labs 07/12/19 0035 WBC 9.8* HGB 11.9* HCT 35.3* Last 3 Lytes Recent Labs 07/12/19 1040 07/12/19 0035 07/11/19 0552 07/10/19 0405 NA -- 142 141 141 K 2.9* 2.8* 4.5 4.5 CL -- 103 104 103 CO2 -- 27 28 27 BUN -- 20 22* 20 CREATININE -- 0.83 0.69* 0.67* Last 3 LFTs Recent Labs 07/05/19 2040 AST 27 ALT 10 ALKPHOS 50 BILITOT 0.2 Last Ca, Mg, Phos Recent Labs 07/12/19 1040 07/12/19 0035 CALCIUM -- 8.8 PHOS 2.9 1.0* Last 3 Coags Recent Labs 07/05/19 2040 PT 12.9* INR 1.1 PTT 28 Last 3 ProBNP, Trop, CK No results for input(s): CK, TROPONINT, PROBNP in the last 168 hours. Last 3 TFT Recent Labs 07/07/19 1300 TSH 2.66 Last 3 Lipids Recent Labs 07/07/19 0419 TRIG 133 Last 3 HgbA1C No results for input(s): HA1C in the last 7068 hours. Last CRP, SEDRATENo results for input(s): CRP, SEDRATE in the last 7068 hours. ECG: Not currently active Imaging: No imaging done in the last 24 hours Assessment: 38 M presented with drug overdose, altered mental status, and resolved pneumonia was previously ventilated but was extubated yesterday. He still remains agitated but does not express pain. Altered mental status is improving but still remains unable to actively communicate. Delirium seems most likely because patient does not appear critically ill, fluctuating mental status, and withdrawing from ETOH, considered getting an LP or MRI but nonfocal exam and is slowly improving despite not treating those processes. Plan: Neuro: ?? Consult to psychiatry for medication management and disposition of mental status delirium vs prior psychiatric history ?? Delirium: nonpharmacologic interventions, assess pain, consider restarting gabapentin wait for psychiatry consult to seek best management Pulm: ?? No active issues at this point CV: ?? EKG for Haloperidol and Quetiapine medications ?? Bradycardia: change atropine to PRN, discontinue labetalol, dexmedetomidine GI: ?? NPO diet continue because does not appear safe for swallow evaluation and not following commandsat this point ?? Diarrhea/incontience: bowel medications change to PRN at this time and monitor ?? Hold tube feeding diet at this point until electrolytes are replenished due to re-feeding syndrome ?? Renal/FEK: ?? Hypomagnesemia: replete and recheck Mg level Q6H ?? Hypophosphatemia: replete and recheck Phos level Q6H ?? Hypokalemia: replete and recheck Q6H Hematology: ?? Currently on Heparin, discontinue Heparin, start Lovenox 40 mg nightly to reduce number of sticks to patient ?? Continue Daily CBC with diff, BMP ID: ?? No active issues at this point Endocrine: ?? Monitor for hypo/hyper(glycemia) Other prophylaxis: Enoxaparin injection 40 mg for DVT prophylaxis GI prophylaxis no indication at this point HOB > 30 Chlorhexidine mouth care PT/OT: ordered Lines/Tubes/Drains: Condom Catheter discontinued patient able to express need for urinal R PICC line continue PIV continue NG tube: continue for tube feeds Consults: Psychiatry Decision Making: Aunt Mulu Code Status: Full Code Disposition: Considering down grading care after psychiatry consult. Summary of changes: adjusting antipsychotic medications, consult psychiatry, change Heparin to Lovenox, replete Lytes. Marina GOMEZ July 12, 2019 Critical Care Green Team (pager [phone]) * Plan of Care - Colt Hamilton RN - 07/12/2019 6:48 AM EST OUTCOME EVALUATION NOTE: OUTCOME SUMMARY: No acute events overnight. Pt was awake, restless and moaning throughout the entirety of shift, even after 2 PRN doses of Haldol 5mg scheduled appropriately apart from one another, 1x dose 10mg IV Haldol, Seroquel 50mg at midnight and 6am. Pt incontinent of both Urine and stool throughout shift, wilbert- care and incontinence care performed multiple times. PLAN MOVING FORWARD: No indication to be in the ICU at this time, downgrade to a lower level of care SAGE. INDIVIDUALIZED FALL PREVENTION INTERVENTIONS: Patient-specific fall risk factors per assessment: [current deficits]: Cognitively impaired, impulsive, restless, slightly agitated. Assistance [level of assistance required for transfers and ambulation]: Unable to assess given pt mental status. Supervision [direct monitoring required during toileting and ADLs]: Total assist. Surveillance [continuous indirect monitoring]: Bedside monitor. Patient-specific fall prevention interventions for sensory deficits provided, if applicable: n/a * Plan of Care - Lex Higgins RN - 07/11/2019 7:42 PM EST Problem: Patient Care Overview Goal: Plan of Care Review Outcome: Ongoing (Interventions Implemented as Appropriate) 07/11/19 0020 Coping/Psychosocial Plan Of Care Reviewed With patient;sibling Plan of Care Review Progress progress toward functional goals as expected Outcome Evaluation Outcome Summary/Plan Manage restlessness, requires a sitter if possible, monitor vitals OUTCOME EVALUATION NOTE: OUTCOME SUMMARY: Upon hand off patient was awake despite sedation, had to be given bolus of propofol and fentanyl, seen by team and plan was to extubate in a few hours.phenobarb was given, patient extubated around , showed gradual improvement by the day, communicating better but still restless .patient became aggressive, combative this evining, all four restrained ,given seroquel and haldol. Hypertensive relativeto restlessness otherwise normotensive, sinus rhythm and apyrexial. PLAN MOVING FORWARD: Manage restlessness, requires a sitter if possible, monitor vitals INDIVIDUALIZED FALL PREVENTION INTERVENTIONS: Patient-specific fall risk factors per assessment: [current deficits]: Confusion, disorientation, agitation Assistance [level of assistance required for transfers and ambulation]: 2 or more persons Supervision [direct monitoring required during toileting and ADLs]: Iv lines and devices Surveillance [continuous indirect monitoring]: [facility] Patient-specific fall prevention interventions for sensory deficits provided, if applicable: [X] Yes CPG GOAL OUTCOME EVALUATION: * Plan of Care - Familia Plummer RN - 07/11/2019 6:51 PM EST Problem: Alcohol Withdrawal Acute, Risk/Actual (Adult) Goal: Signs and Symptoms of Listed Potential Problems Will be Absent, Minimized or Managed (AlcoholWithdrawal Acute, Risk/Actual) Signs and symptoms of listed potential problems will be absent, minimized or managed by discharge/transition of care (reference Alcohol Withdrawal Acute, Risk/Actual (Adult) CPG). Outcome: Ongoing (Interventions Implemented as Appropriate) 07/08/191999 Alcohol Withdrawal Acute, Risk/Actual Problems Assessed (Alcohol Withdrawal Syndrome) all Problems Present (Alcohol Withdrawal Syndrome) effects of JAKE (alcohol withdrawal syndrome) including DTs (delirium tremens) Problem: Patient Care Overview Goal: Plan of Care Review Outcome: Ongoing (Interventions Implemented as Appropriate) 07/10/19 1537 07/11/19 0800 Coping/Psychosocial Plan Of Care Reviewed With -- patient Plan of Care Review Progress progress toward functional goals is gradual -- OUTCOME EVALUATION NOTE: OUTCOME SUMMARY: Sedation weaned and D/Adán this AM. Extubated. Pt increasingly agitated this afternoon. Restraints applied for cognitive impairment. PRN haldol given with moderate effect. Multiple stools this afternoon. Pt became aggressive and combative during incontinence care, attempting to strike/bite staff members - necessitating the addition of bilateral soft ankle restraints. [facility] green team notified. Additional dose of haldol given. PLAN MOVING FORWARD: Continue to monitor INDIVIDUALIZED FALL PREVENTION INTERVENTIONS: Patient-specific fall risk factors per assessment: [current deficits]: Significant weakness Assistance [level of assistance required for transfers and ambulation]: Total Supervision [direct monitoring required during toileting and ADLs]: Close Surveillance [continuous indirect monitoring]: Alarms on, audible and appropriate Patient-specific fall prevention interventions for sensory deficits provided, if applicable: [X] N/A CPG GOAL OUTCOME EVALUATION: * Plan of Care - Jolene Holloway RN - 07/11/2019 6:27 AM EST Problem: Patient Care Overview Goal: Infection Control 07/11/19 0627 Safety Interventions Isolation Precautions standard precautions maintained Infection Prevention environmental surveillance performed Coping Strategies Supportive Measures positive reinforcement provided;relaxation techniques promoted Comments: OUTCOME EVALUATION NOTE: OUTCOME SUMMARY: Pt is a RASS -3. Sedated on propofol at 60 and Fentanyl at 150. Given prn boluses for agitation andbiting on ET tube. Does not follow commands but withdraws from pain. On PS with 30% FiO2. Sinus earnest with HR between 40s-50s, team aware. Pt HR drops to 30 with turns. BP stable. Pt bladder scanned q4 and straight cath x2 for about 700 each time. Multiple loose/liquid BMs. Labs trended. TF shut off at 0400 for plan to extubate. PLAN MOVING FORWARD: Continue to Monitor HR. Plan for extubation. INDIVIDUALIZED FALL PREVENTION INTERVENTIONS: Patient-specific fall risk factors per assessment: [current deficits]: Lines and drains. Assistance [level of assistance required for transfers and ambulation]: 2x person assist. Supervision [direct monitoring required during toileting and ADLs]: Close supervision. Frequent RN room checks. Surveillance [continuous indirect monitoring]: [facility] Monitoring. Patient-specific fall prevention interventions for sensory deficits provided, if applicable: [X] N/A * Plan of Care - Debby Cobian RN - 07/10/2019 3:57 PM EST Problem: Patient Care Overview Goal: Plan of Care Review Outcome: Ongoing (Interventions Implemented as Appropriate) 07/10/19 0800 07/10/19 1537 Coping/Psychosocial Plan Of Care Reviewed With friend -- Plan of Care Review Progress -- progress toward functional goals is gradual OUTCOME EVALUATION NOTE: OUTCOME SUMMARY: SB-NSR. VSS. Transitioned from VC to PS this afternoon, tolerating well. Prop currently at 60mcg, Fentanyl at 150mcg. PRN fentanyl bolus given. Sedation lowered significantly in anticipation of extubation this afternoon, patient moderately restless but easily redirected. Sedation inc for comfort once extubation plans were changed to tomorrow. Multiple liquid BM's. Straight cath x1 for 600cc. Multiple visitors throughout the day. Will continue to monitor. PLAN MOVING FORWARD: Extubate tomorrow morning. INDIVIDUALIZED FALL PREVENTION INTERVENTIONS: Patient-specific fall risk factors per assessment: Medical equipment, sedation Assistance: 2 assist, Bedrest w/ Q2hr turns Supervision: Hands on Surveillance: Bed locked in low position, call [place] within reach, purposeful hourly rounding, clutter free environment, bed alarm on, friends at bedside Patient-specific fall prevention interventions for sensory deficits provided: N/A CPG GOAL OUTCOME EVALUATION: Continue care plan as documented. * Plan of Care - Eliza Ames RN - 07/10/2019 6:55 AM EST OUTCOME EVALUATION NOTE: OUTCOME SUMMARY: Pt remained intubated and sedated overnight. Per RT (RN on break)--Approx 0230 pt had episode of desats to 80s prompting increase in FiO2; pt had a brief episode of desat to 60s but recovered quickly). At this time it was noted pt's HR was 40s-30s; team notified of events. RN performed EKG per provider order. Bedside echo done by provider. Propofol weaned per provider with no apparent effect on HR. Pt remained on Fentanyl at 200, Propofol titrated between 30 and 80. MAPs maintained above 65, SBP 110s-120s; HR remained in 50s-40s.; Atropine at bedside. Last value Range last 48 hrs Temperature Temp: 36.9 ??C (98.4 ??F) Temp: [36.2 ??C (97.2 ??F)-37.6 ??C (99.7 ??F)] Heart Rate Heart Rate: 50 Heart Rate: [39-120] Blood Pressure BP: 105/56 BP: (96-157)/(50-101) Respiratory Rate Resp: 12 Resp: [7-28] SpO2 SpO2: 96 % SpO2: [89 %-98 %] PLAN MOVING FORWARD: Extubate when appropriate; wean sedation as tolerated. INDIVIDUALIZED FALL PREVENTION INTERVENTIONS: Patient-specific fall risk factors per assessment: [current deficits]: Lines and devices; altered mental status Assistance [level of assistance required for transfers and ambulation]: 2-assist Supervision [direct monitoring required during toileting and ADLs]: Hands-on assistance Surveillance [continuous indirect monitoring]: [facility]; purposeful hourly rounding Patient-specific fall prevention interventions for sensory deficits provided, if applicable: [X] N/A CPG GOAL OUTCOME EVALUATION: * Plan of Care - Fadumo Judd RN - 07/09/2019 7:00 PM EST Problem: Patient Care Overview Goal: Plan of Care Review Outcome: Ongoing (Interventions Implemented as Appropriate) 07/09/19 1856 Coping/Psychosocial Plan Of Care Reviewed With patient Plan of Care Review Progress progress toward functional goals is gradual OUTCOME EVALUATION NOTE: OUTCOME SUMMARY: Pt received intubated on PS and on fentanyl and propofol for sedation. Bronch was done which showededema in the upper airway. Pt continues to not follow commands and can intermittently become agitated. Basilio removed. Straight cath x1 this afternoon with bladder scan being greater than 900. At 1755 bladder scan read 195. Vitals remains stable PLAN MOVING FORWARD: Keep sedated Re-evaluate for extubation in the morning INDIVIDUALIZED FALL PREVENTION INTERVENTIONS: Patient-specific fall risk factors per assessment: [current deficits]: Sedated, restrained Assistance [level of assistance required for transfers and ambulation]: Assistance x2, hands on Supervision [direct monitoring required during toileting and ADLs]: assitance x2, hands on purposeful rounding Surveillance [continuous indirect monitoring]: Tele, [facility] Patient-specific fall prevention interventions for sensory deficits provided, if applicable: [X] N/A * Initial Assessments - Ritika Hwang, RD - 07/09/2019 3:16 PM EST Clinical Nutrition Progress Note Reason for intervention: Follow up Recommendations: Suggest: If pt is not extubated today, restart TF. Promote with a goal rate of 35 ml per hour plus 9 scoop(s) of protein powder daily. Total goal volume daily is 700 ml. This rate is calculated to compensate for unplanned time off feedings due to potential procedures, etc. At goal, this will provide 925 calories, 98 grams protein, 588 ml water from formula + 450 ml waterfrom protein powder administration. Monitor weight. Current rate of propofol is 40.4ml/hr. At current rate patient is receiving 1066 additional calories from propofol. Check Trig Monitor residuals as patient is at risk for refeeding. I paged recommendations to pager [phone], Tomy Team. Akshat Serrano is a 38 y.o. male admit with AMS and respiratory failure. He is intubated and sedated on high level of propofol. TF were held for extubation today, but restarted after pt was not extubated (maybe tomorrow). TF restarted. Propofol is providing approx 1065 kcal per day in lipid, limiting the amount of TF able to be provided to avoid overfeeding. 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 fentaNYL 200 mcg/hr (07/09/19 1400) ??? propofol 80 mcg/kg/min (07/09/19 1417) Scheduled Meds: ??? lidocaine 100 mg Subcutaneous Once ??? QUEtiapine 50 mg Oral Q6H ??? thiamine 500 mg Intravenous TID ??? folic acid 1 mg Intravenous Daily ??? white petrolatum-mineral oil 1 each Both Eyes BID ??? sennosides 8.8 mg Oral BID And ??? docusate sodium 100 mg Oral BID ??? chlorhexidine 15 mL Oral BID ??? sodium chloride 0.9 % (flush) 5 mL Intravenous BID ??? heparin (Porcine) 5,000 Units Subcutaneous Q8H MARIBELL ??? shift total and Settings verification 1 each Intravenous 2 Times Daily - Shift Total ??? cefTRIAXone 2 g Intravenous Q24H ??? insulin lispro 1-4 Units Subcutaneous Q4H MARIBELL PRN Meds: haloperidol lactate, potassium chloride, midazolam (PF), eognik-zmbzlzqi-atjzyit, sodium bicarbonate, sodium chloride 0.9 % (flush), lidocaine, Assess AND [COMPLETED] fentaNYL AND fentaNYL AND fentaNYL AND shift total and Settings verification, polyethylene glycol, bisacodyl, Glucose 40% oral gel OR dextrose 10% OR glucagon (human recombinant), ipratropium AND albuterol Estimated body mass index is 28.37 kg/m?? as calculated from the following: Height as of this encounter: 170 cm (5' 6.93). Weight as of this encounter: 82 kg (180 lb 12.4 oz). Adm weight (kg): 84.1 kg [place] body weight: 65.9 kg (145 lb 5.8 oz) Adjusted ideal body weight: 72.4 kg (159 lb 8.5 oz) Nutrition needs estimated at: Calories: 6843-8033 kcal (20-25 kcal/kg ABW) Protein: 100-132g (1.5-2g/kg IBW) Nutrition to follow. Ritika Hwang RD, LD Pager [phone] * Plan of Care - Irasema Recinos PT - 07/09/2019 9:40 AM EST Physical Therapy Note 07/09/19 0937 Rehab Evaluation Document Type contact Total Evaluation Minutes, Physical Therapy 0 Evaluation Not Performed Comment Patient continues to need sedation for severe agitation. Per RN, team is working toward extubation. Will follow and remain available when patient more alert. Irasema Recinos PT Pager [phone] * Plan of Care - Rocky Pace RN - 07/09/2019 7:54 AM EST Problem: Patient Care Overview Goal: Plan of Care Review Outcome: Ongoing (Interventions Implemented as Appropriate) Outcome Summary. Pt sedated and ventilated. Remains intermitttently very agitated and not following commands. Passed SBT Plan. Review sedation and trial for extubation during the day Goal: Infection Control Outcome: Ongoing (Interventions Implemented as Appropriate) 07/09/19 0600 Safety Interventions Isolation Precautions standard precautions maintained Goal: Discharge Needs Assessment Outcome: Ongoing (Interventions Implemented as Appropriate) 07/09/19 0750 Discharge Needs Assessment Concerns To Be Addressed no discharge needs identified Problem: Ventilation, Mechanical Invasive (Adult) Goal: Signs and Symptoms of Listed Potential Problems Will be Absent, Minimized or Managed (Ventilation, Mechanical Invasive) Signs and symptoms of listed potential problems will be absent, minimized or managed by discharge/transition of care (reference Ventilation, Mechanical Invasive (Adult) CPG). Outcome: Ongoing (Interventions Implemented as Appropriate) 07/09/19 0750 Ventilation, Mechanical Invasive Problems Assessed (Mechanical Ventilation, Invasive) all * Plan of Care - Fadumo Judd RN - 07/08/2019 6:57 PM EST Problem: Patient Care Overview Goal: Plan of Care Review Outcome: Ongoing (Interventions Implemented as Appropriate) 07/08/19 1854 Coping/Psychosocial Plan Of Care Reviewed With patient;daughter Plan of Care Review Progress progress toward functional goals is gradual OUTCOME EVALUATION NOTE: OUTCOME SUMMARY: Pt received sedated on propofol, fentanyl, and versed. Pt continues to not follow commands and be very agitated. Versed paused this AM but patient became agitated around 1200 and was restarted. Versed discontinued this afternoon with PRN boluses available. Vitals remain stable and urine output adequate. Got in contact with daughter who's phone number is in sticky note. Will continue to monitor. PLAN MOVING FORWARD: Improve mental status, keep calm INDIVIDUALIZED FALL PREVENTION INTERVENTIONS: Patient-specific fall risk factors per assessment: [current deficits]: Sedated, confused, restrained Assistance [level of assistance required for transfers and ambulation]: Assistance x2, hands on Supervision [direct monitoring required during toileting and ADLs]: assistance x2, hands on, purposeful rounding Surveillance [continuous indirect monitoring]: Tele, marks monitor Patient-specific fall prevention interventions for sensory deficits provided, if applicable: [X] Yes * Plan of Care - Irasema Recinos, PT - 07/08/2019 10:30 AM EST Physical Therapy Note 07/08/19 1030 Rehab Evaluation Document Type contact Total Evaluation Minutes, Physical Therapy 0 Evaluation Not Performed Comment Patient continues to be inappropriate for PT at this time, per discussion with RN, due to severe agitation when sedation weaned. Will continue to follow to continue to assess for readiness to initiate PT. Irasema Recinos, PT Pager [phone] * Plan of Care - Rocky Pace, ROBBIN - 07/08/2019 7:58 AM EST Problem: Skin Integrity Impairment, Risk/Actual (Adult) Goal: Skin Integrity/Wound Healing Patient will demonstrate the desired outcomes by discharge/transition of care. Outcome: Ongoing (Interventions Implemented as Appropriate) 07/08/19755 Skin Integrity Impairment, Risk/Actual (Adult) Skin Integrity/Wound Healing making progress toward outcome Problem: Alcohol Withdrawal Acute, Risk/Actual (Adult) Goal: Signs and Symptoms of Listed Potential Problems Will be Absent, Minimized or Managed (AlcoholWithdrawal Acute, Risk/Actual) Signs and symptoms of listed potential problems will be absent, minimized or managed by discharge/transition of care (reference Alcohol Withdrawal Acute, Risk/Actual (Adult) CPG). Outcome: Ongoing (Interventions Implemented as Appropriate) 07/08/19755 Alcohol Withdrawal Acute, Risk/Actual Problems Assessed (Alcohol Withdrawal Syndrome) all Problem: Patient Care Overview Goal: Plan of Care Review Outcome: Ongoing (Interventions Implemented as Appropriate) 07/08/19755 Coping/Psychosocial Plan Of Care Reviewed With patient Outcome summary Pt sedated and ventilated overnight. Very agitated on weaning sedation not following commands Plan. Team to review sedation. Goal: Infection Control Outcome: Ongoing (Interventions Implemented as Appropriate) 07/08/19 06 Safety Interventions Isolation Precautions standard precautions maintained Goal: Discharge Needs Assessment Outcome: Ongoing (Interventions Implemented as Appropriate) 07/08/19755 Discharge Needs Assessment Concerns To Be Addressed no discharge needs identified Problem: Ventilation, Mechanical Invasive (Adult) Goal: Signs and Symptoms of Listed Potential Problems Will be Absent, Minimized or Managed (Ventilation, Mechanical Invasive) Signs and symptoms of listed potential problems will be absent, minimized or managed by discharge/transition of care (reference Ventilation, Mechanical Invasive (Adult) CPG). Outcome: Ongoing (Interventions Implemented as Appropriate) 07/08/19755 Ventilation, Mechanical Invasive Problems Assessed (Mechanical Ventilation, Invasive) all * Plan of Care - Fadumo Judd RN - 07/07/2019 5:43 PM EST Problem: Patient Care Overview Goal: Plan of Care Review Outcome: Ongoing (Interventions Implemented as Appropriate) 07/07/19 1737 Coping/Psychosocial Plan Of Care Reviewed With patient Plan of Care Review Progress no change OUTCOME EVALUATION NOTE: OUTCOME SUMMARY: Pt received sedated on propofol, fentanyl, ketamine, and versed. Ketamine stopped this AM. Pt on volume control through out the day. Will open eyes but does not follow commands. Precedex was started but pt became bradycardic. EKG run and precedex stopped. Versed was titrated to 1 this afternoon butpt became very agitated. Versed and fentanyl bolus were given, versed increased back to 2 to calm pt with good response. Vitals remain stable, now on pressure support. Urine output remains adequate, please see I and O. PLAN MOVING FORWARD: Keep sedated Possible SBT tomorrow INDIVIDUALIZED FALL PREVENTION INTERVENTIONS: Patient-specific fall risk factors per assessment: [current deficits]: Generalized weakness, sedated Assistance [level of assistance required for transfers and ambulation]: Assistance x2, hands on Supervision [direct monitoring required during toileting and ADLs]: Assistance x2, hands on, purposeful rounding Surveillance [continuous indirect monitoring]: [facility] Patient-specific fall prevention interventions for sensory deficits provided, if applicable: [X] Yes * Initial Assessments - Price Reese - 07/07/2019 11:21 AM EST Clinical Nutrition Consult Note Reason for intervention: Consult TF Recommendations: Suggest: vivonex RTF with a goal rate of 50 ml per hour plus 12 scoop(s) of protein powder daily. Total goal volume daily is 1000 ml. This rate is calculated to compensate for unplanned time off feedings due to potential procedures, etc. At goal, this will provide 1300 calories, 122 grams protein, 848 ml water from formula + 600 ml water from protein powder administration and 66% of RDI's for vitamins and minerals. Monitor weight. Current rate of propofol is 40.4ml/hr. At current rate patient is receiving 1066 additional calories from propofol. Monitor residuals as patient is at risk for refeeding. I was able to reach the patient's provider, yolanda palmer team on pager [phone], regarding above. Akshat Serrano is a 38 y.o. 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 tube feeding diet 40 mL/hr at 07/07/19 0811 ??? dexmedetomidine Stopped (07/07/19 0900) ??? midazolam in normal saline 2 mg/hr (07/07/19 1000) ??? fentaNYL 150 mcg/hr (07/07/19 1010) ??? propofol 80 mcg/kg/min (07/07/19 1105) Scheduled Meds: ??? thiamine 500 mg Intravenous TID ??? folic acid 1 mg Intravenous Daily ??? white petrolatum-mineral oil 1 each Both Eyes BID ??? sennosides 8.8 mg Oral BID And ??? docusate sodium 100 mg Oral BID ??? shift total and Settings verification Intravenous 2 Times Daily - Shift Total ??? free water bolus 200 mL Per NG tube TID ??? chlorhexidine 15 mL Oral BID ??? sodium chloride 0.9 % (flush) 5 mL Intravenous BID ??? heparin (Porcine) 5,000 Units Subcutaneous Q8H MARIBELL ??? shift total and Settings verification 1 each Intravenous 2 Times Daily - Shift Total ??? cefTRIAXone 2 g Intravenous Q24H ??? famotidine 20 mg Intravenous 2 times per day ??? insulin lispro 1-4 Units Subcutaneous Q4H MARIBELL PRN Meds: midazolam in normal saline AND midazolam AND shift total and Settings verification, [id number], sodium bicarbonate, sodium chloride 0.9 % (flush), lidocaine, Assess AND [COMPLETED] fentaNYL AND fentaNYL AND fentaNYL AND shift total and Settings verification, polyethylene glycol, bisacodyl, Glucose 40% oral gel OR dextrose 10% OR glucagon (human recombinant), ipratropium AND albuterol Estimated body mass index is 29.1 kg/m?? as calculated from the following: Height as of this encounter: 170 cm (5' 6.93). Weight as of this encounter: 84.1 kg (185 lb 6.5 oz). Adm weight (kg): 84.1 kg Leighton body weight: 65.9 kg (145 lb 5.8 oz) Adjusted ideal body weight: 73.2 kg (161 lb 6.1 oz) Nutrition needs estimated at: 8319-8633 calories and 126 grams protein daily. [facility] * Consult Note - Steven Linares MD - 07/07/2019 7:36 AM EST Neurology Consult Note Patient name:Akshat Serrano Date of :1980 Admit date: 07/05/2019 Primary Attending: Jovanni Espinoza Jr., MD Neurology Consult Attending: Dr. Aksaht Madden CC: AMS We have been asked to see Akshat Serrano by Dr. Espinoza. HPI: Akshat Serrano is a 38 y.o. with a history of ADHD, opiate and alcohol use, who presents to the MICU with altered mental status and respiratory failure. He was consulted to neurology for AMS requiring EEG. Mr. Serrano presented to [facility] on 07/03 via EMS with AMS thought to be secondary to ingestion and right leg pain. Patient was combative toward staff and was eventually intubated. At the OSH, WBC 14.9, Ammonia 45, Utox positive for EtOH, THC, and cocaine. Staff was also concerned for PCP. CT Head negative for intracranial pathology. CT CAP found R>L bibasilar consolidation concerning for aspiration vs pneumonia. Cultures growing strep pneumo. Multiple attempts were made to wean sedation and the ventilator that were unsuccessful due to tachypnea and agitation. At [facility], he was started on ceftriaxone for treatment of his pneumonia. He was also given, folic acid and thiamine due to his history of alcohol use as well as free water boluses for his hypernatremia(149 on admission). During his stay nursing staff has not noticed pursposeful movements, and when weaning the sedation, the patient becomes extremely agitated and attempts to get out of bed without appropriate gaze in response to verbal commands. Patient has had roving eye movements during his stay. Currently on Fentanyl and propofol for sedation. Has been receiving midazolam for RASS 2+ 24h Events: --EEG: generalized slowing of the background as well as generalized rhythmic delta activity (GRDA) with stimulation. Clinical Correlation: This EEG shows moderate diffuse cortical dysfunction of nonspecific etiology, including drug effect. No epileptiform discharges or seizures on this recording. --Midazolam drip at 2mg/hr --Ketamine discontinued at 0830 --propofol at 70 mcg/kg/hr Physical Exam: Vital Signs: Last value Range last 24 hrs Temperature Temp: 37.2 ??C (99 ??F) Temp: [36.7 ??C (98.1 ??F)-38.1 ??C (100.6 ??F)] Heart Rate Heart Rate: 69 Heart Rate: [67-120] Blood Pressure BP: 118/56 BP: (83-158)/(42-99) Respiratory Rate Resp: 12 Resp: [12-30] SpO2 SpO2: 96 % SpO2: [92 %-98 %] Physical Exam: Gen: in bed intubated and ventillated, not responsive to verbal stimuli HEENT: anicteric, pinpoint pupils, non-reactive to light CV: RRR, no murmurs/rubs/gallops Resp: CTAB, no crackles/wheezes/ronchi, normal work of breathing Skin: no rashes, lesions, or ulcerations noted Neuro: Exam limited due to sedation Labs: WBC: 7.1, Hgb 13.1, PLT 158 Na 148, Cl 112, BUN 4, LFTs wnl, Recent Labs 07/07/1941807/06/1932807/05/192039 WBC 5.5 7.1 6.4 HGB 12.0* 13.1* 11.3* HCT 37.3* 39.5* 34.8* PLATELET 161 158 165 Recent Labs 07/07/1941807/06/1932807/05/192039 NA 145 148* 147* CL 110* 112* 114* CO2 23 23 22 K 3.7 3.7 4.0 MAGNESIUM 0.69 -- -- PHOS 3.3 -- -- CALCIUM 8.3* 8.4* 8.1* BUN 3* 4* 4* CREATININE 1.00 0.87 1.07 Recent Labs 07/05/192039 AST 27 ALT 10 ALKPHOS 50 BILITOT 0.2 Recent Labs 07/05/192039 INR 1.1 PT 12.9* PTT 28 No results for input(s): CK, TROPONINT, PROBNP in the last 168 hours. Recent Labs 07/07/19 0423 07/07/19 0047 07/06/19 2018 07/06/19 1816 07/06/19 1605 07/06/19 1225 POCGLU 77 76 74 75 65 76 Diagnostic Tests and Imaging: EEG 07/06/19: This is an abnormal EEG due to moderate generalized slowing of the background as well as generalized rhythmic delta activity (GRDA) with stimulation. Clinical Correlation: This EEG showsmoderate diffuse cortical dysfunction of nonspecific etiology, including drug effect. No epileptiform discharges or seizures on this recording. Assessment & Recommendations: 38 y.o. male with a history of ADHD, opiate and alcohol use, who presents to the MICU with with multifocal right lung pneumonia and altered mental status with concerns for polysubstance abuse and hypernatremia. He was consulted to neurology for AMS requiring EEG. The patient's presentation is most likely due to polysubstance abuse. His EEG shows moderate diffuse cortical dysfunction of nonspecific etiology, including drug effect, without epileptiform discharges or seizures. Given his level of agitation, he is most likely withdrawing from alcohol and/or other substances. No indication for continuous EEG monitoring at this time. Given his high requirement of benzos and agitation, we recommend a midazolam drip for 72hours to treat for delirium tremens and reduce the likelihood of seizures. Hypernatremia improving with free water boluses. Agree with folicacid and thiamine supplementation. Given the patient's elevated ammonia at the OSH, could consider further evaluation of cirrhosis. The patient also has exopthalmos on exam. Would recommend checking a TSH and if abnormal, can consider further workup for ryan's encephalitis as a possible etiology of his AMS. #Delirium tremens #Altered Mental Status --Midazolam drip x 72h, [facility] protocol --folic acid 1mg IV qd --thiamine 500mg TID qd --wean sedation as tolerated --TSH Given no epileptiform or seizure like activity was observed on EEG, Neurology will sign off at thistime. Please page [phone] with any further questions. Steven Linares MD Internal Medicine, PGY-1 General Neurology Consult 1210 7:36 AM Associated attestation - Akshat Madden MD - 07/09/2019 10:52 PM EST Neurology Attending Note Akshat Madden MD PhD (pager [phone]) I have seen and examined Akshat Serrano on 07/[address] Linares, whose note containsour history, exam, data/imaging review and assessment and recommendations. * Plan of Care - Di Patricio RN - 07/06/2019 6:55 PM EST Problem: Patient Care Overview Goal: Plan of Care Review Outcome: Ongoing (Interventions Implemented as Appropriate) 07/06/19 2236 Coping/Psychosocial Plan Of Care Reviewed With patient Plan of Care Review Progress no change OUTCOME EVALUATION NOTE: OUTCOME SUMMARY: Pt has been agitated throughout the day. Dur to his agitation, pt has been started on a ketamine drip to help decreased propofol rate and a versed drip to help with sedation (see MAR). EEG performed at bedside. TF to be started this evening. IV abx continued. Will continue to monitor. PLAN MOVING FORWARD: Monitor VS/labs Monitor I &O Monitor sedation SAT/SBT? INDIVIDUALIZED FALL PREVENTION INTERVENTIONS: Patient-specific fall risk factors per assessment: [current deficits]: IV, restraints, mental status, basilio Assistance [level of assistance required for transfers and ambulation]: 2-3 assist in bed Supervision [direct monitoring required during toileting and ADLs]: Hands on Surveillance [continuous indirect monitoring]: Hourly rounding, bed alarm, restraints Patient-specific fall prevention interventions for sensory deficits provided, if applicable: [X] N/A CPG GOAL OUTCOME EVALUATION: * Initial Assessments - Dyan Wilkerson RN - 07/06/2019 1:31 PM EST Office of Care Management Initial Assessment Dyan Wilkerson RN reviewed record and discussed patient with MICU Green Care Team. Source of Information: patient intubated and sedated; unable to reach next of kin or any individualfamiliar with this patient. OCM SW aware and involved. Introduced self/reviewed role; services accepted. Reason for Hospitalization: 07/06/2019 Pt accepted in transfer yesterday, 07/05/19, from [facility] for furthermanagement of AMS and respiratory failure. Past Medical History: Diagnosis Date ??? No known problems Hospitalizations Within the Past 30 Days: no mention Anticipated Length Of Stay (If known): to be determined Current Decision-Making Capacity: unable; currently intubated and mechanically ventilated. Advance Care Planning: Code Status: Full Code No Advance Directive on file in eDH; unknown at this time who would be the patient's surrogated decision-maker. OCM SW actively involved in locating someone who is familiar with the patient. CurrentCoping/Education/Information Needs: unable to assess; patient is intubated and mechanically ventilated Current Functional Ability: care dependent 2/2 intubation Functional Status Prior to Admission: was apparently independent in the community Home Environment: to be assessed Social & Family Supports/Community Resources: unknown; to be determined once patient is extubated and able to participate in conversation Behavioral Health History: Unknown at this time; Substance Use/Abuse: per chart review, Utox positive Other Pertinent/Service Specific Information: would benefit from BIT eval Health/Prescription Coverage: Primary Insurance: MEDICAID [place] Secondary Insurance: N/A Prescription Coverage: to be assessed Preferred Pharmacy: none listed Other: to be assessed Primary Care Provider: Adwoa Nixon MD [phone] Patient/Caregiver Goals of Treatment: to be determined Potential Needs for Transition of Care: Rehab/SNF: to be assessed Home Health: to be determined DME: to be determined Dialysis: not anticipated Community Resources: potential benefit in learning what's available Transportation: OCM staff assistance v private vehicle Other: further discussion needed with patient once he is able to participate in conversation Anticipated Barriers to Discharge/Special Considerations: Homeless, substance use, lack of transportation, finances Assessment: Akshat Serrano is a 38 yo male who was accepted in transfer from [facility] on 07/05/19 with AMS and respiratory failure. He was intubated at OSH but attempts at weaning sedation and extubating have not been successful. Further assessment needed. Plan: A member of the Care Management team will continue to monitor progress, follow for continuityof care and assist with transition of care planning. Dyan Wilkerson RN Pager: [phone] * Consult Note - Blue Evans MD - 07/06/2019 12:48 PM EST Neurology Consult Note Patient name:Akshat Serrano Date of :1980 Admit date: 07/05/2019 Primary Attending: Razia Dubose MD Neurology Consult Attending: Dr. Blue Evans CC: AMS We have been asked to see Akshat Serrano by Dr. Espinoza. HPI: Akshat Serrnao is a 38 y.o. with a history of ADHD, opiate and alcohol use, who presents to the MICU with altered mental status and respiratory failure. He was consulted to neurology for AMS requiring EEG. Mr. Serrano presented to [facility] on 07/03 via EMS with AMS thought to be secondary to ingestion and right leg pain. Patient was combative toward staff and was eventually intubated. At the OSH, WBC 14.9, Ammonia 45, Utox positive for EtOH, THC, and cocaine. Staff was also concerned for PCP. CT Head negative for intracranial pathology. CT CAP found R>L bibasilar consolidation concerning for aspiration vs pneumonia. Cultures growing strep pneumo. Multiple attempts were made to wean sedation and the ventilator that were unsuccessful due to tachypnea and agitation. At [facility], he was started on ceftriaxone for treatment of his pneumonia. He was also given, folic acid and thiamine due to his history of alcohol use as well as free water boluses for his hypernatremia(149 on admission). During his stay nursing staff has not noticed pursposeful movements, and when weaning the sedation, the patient becomes extremely agitated and attempts to get out of bed without appropriate gaze in response to verbal commands. Patient has had roving eye movements during his stay. Currently on Fentanyl and propofol for sedation. Has been receiving midazolam for RASS 2+ EEG found moderate generalized slowing of the background likely due to medications. No epileptiformdischarges or seizures. Past Medical & Surgical History: Past Medical History: Diagnosis Date ??? No known problems Past Surgical History: Procedure Laterality Date ??? HERNIA REPAIR ??? IMPLANT MESH HERNIA REPAIR/DEBRIDEMENT CLOSURE 12/05/2011 IMPLANT MESH FOR INCISIONAL OR VENTRAL HERNIA REPAIR performed by CARLOS ENRIQUE BECK III at [facility] OR ??? REPAIR INCISIONAL HERNIA, REDUCIBLE 12/05/2011 REPAIR INITIAL INCISIONAL OR VENTRAL HERNIA REDUCIBLE performed by CARLOS ENRIQUE BECK III at [facility] OR Home Medications: No current facility-administered medications on file prior to encounter. Current Outpatient Medications on File Prior to Encounter Medication Sig Dispense Refill ??? OXYcodone-acetaminophen (PERCOCET) 5-325 mg per tablet Take 1 tablet by mouth every 4 hours as needed for Pain. 10 tablet 0 Hospital Medications: Scheduled Meds: ??? free water bolus 200 mL Per NG tube 4 Times Daily ??? thiamine 500 mg Intravenous TID ??? folic acid 1 mg Intravenous Daily ??? white petrolatum-mineral oil 1 each Both Eyes BID ??? sennosides 8.8 mg Oral BID And ??? docusate sodium 100 mg Oral BID ??? shift total and Settings verification Intravenous 2 Times Daily - Shift Total ??? chlorhexidine 15 mL Oral BID ??? sodium chloride 0.9 % (flush) 5 mL Intravenous BID ??? heparin (Porcine) 5,000 Units Subcutaneous Q8H MARIBELL ??? shift total and Settings verification 1 each Intravenous 2 Times Daily - Shift Total ??? cefTRIAXone 2 g Intravenous Q24H ??? famotidine 20 mg Intravenous 2 times per day ??? insulin lispro 1-4 Units Subcutaneous Q4H [facility] Continuous Infusions: ??? ketamine 0.3 mg/kg/hr (07/06/19 0955) ??? fentaNYL 200 mcg/hr (07/06/19 0431) ??? propofol 70 mcg/kg/min (07/06/19 1219) PRN Meds:.midazolam (PF), sodium chloride 0.9 % (flush), lidocaine, Assess AND [COMPLETED] fentaNYL AND fentaNYL AND fentaNYL AND shift total and Settings verification, polyethylene glycol, bisacodyl, Glucose 40% oral gel OR dextrose 10% OR glucagon (human recombinant), ipratropium AND albuterol Allergies: No Known Allergies Review of systems: Unable to assess. Physical Exam: Vital Signs: Last value Range last 24 hrs Temperature Temp: 37.1 ??C (98.8 ??F) Temp: [36.5 ??C (97.7 ??F)-37.4 ??C (99.3 ??F)] Heart Rate Heart Rate: 69 Heart Rate: [58-127] Blood Pressure BP: 99/55 BP: (95-155)/(50-94) Respiratory Rate Resp: 16 Resp: [9-46] SpO2 SpO2: 98 % SpO2: [96 %-99 %] Physical Exam: Gen: in bed intubated and ventillated, becomes arousable to verbal stimuli HEENT: anicteric, PERRL, exopthalmos CV: RRR, no murmurs/rubs/gallops Resp: CTAB, no crackles/wheezes/ronchi, normal work of breathing Skin: no rashes, lesions, or ulcerations noted Neuro: Exam limited due to sedation and agitation Labs: WBC: 7.1, Hgb 13.1, PLT 158 Na 148, Cl 112, BUN 4, LFTs wnl, Recent Labs 11/05/32807/05/192039 WBC 7.1 6.4 HGB 13.1* 11.3* HCT 39.5* 34.8* PLATELET 158 165 Recent Labs 07/06/1932807/05/192039 NA 148* 147* CL 112* 114* CO2 23 22 K 3.7 4.0 CALCIUM 8.4* 8.1* BUN 4* 4* CREATININE 0.87 1.07 Recent Labs 07/05/192039 AST 27 ALT 10 ALKPHOS 50 BILITOT 0.2 Recent Labs 07/05/192039 INR 1.1 PT 12.9* PTT 28 No results for input(s): CK, TROPONINT, PROBNP in the last 168 hours. Recent Labs 07/06/19 1225 07/06/19 0818 07/06/19 0728 07/06/19 0332 07/06/19 0021 07/05/19 2204 POCGLU 76 79 64* 79 87 90 Diagnostic Tests and Imaging: EEG 07/06/19: This EEG shows moderate generalized slowing of the background, likely in part due to medication. No epileptiform discharges or seizures. Full report to follow. Assessment & Recommendations: 38 y.o. male with a history of ADHD, opiate and alcohol use, who presents to the MICU with with multifocal right lung pneumonia and altered mental status with concerns for polysubstance abuse and hypernatremia. He was consulted to neurology for AMS requiring EEG. The patient's presentation is most likely due to polysubstance abuse. His EEG shows diffuse slowingof the background, which may also be due to his current medications. Given his level of agitation, he is most likely withdrawing from alcohol and/or other substances. No indication for continuous EEGmonitoring at this time. Given his high requirement of benzos and agitation, we recommend a midazolam drip for 72hours to treat for delirium tremens and reduce the likelihood of seizures. Agree with treatment of hypernatremia with free water boluses. Agree with folic acid and thiamine supplementation for this patient. Given patient's elevated ammonia at the OSH, could consider evaluation of cirrho sis. #delirium tremens #Altered Mental Status --Midazolam drip x 72h, [facility] protocol --folic acid 1mg IV qd --thiamine 500mg TID qd --Free water boluses for hypernatremia Neurology will continue to follow. Steven Linares MD Internal Medicine, PGY-1 General Neurology Consult 0260 12:48 PM Attending Physician Attestation I saw and evaluated the patient with Dr. Linares. I have reviewed the medical records and the patient's history during the visit and I agree with the details as written. My physical examination confirms the findings. my examination was limited by sedation-Versed/fentanyl ggts. The assessment and plan were formulated in discussion with me at the time of the visit and I agree with them as documented. Patient appears to have a diffuse encephalopathy in the the setting of acute alcohol withdrawal and bilateral pneumonia. THe EEG shows moderately severe slowing of non-specific etiology, superimposed beta activity likely related to benzodiazepine use, but no epileptiform discharges. Management of Acute alcohol withdrawal and metabolic delerium as above. Blue Evans MD * Plan of Care - Irasema Recinos, PT - 07/06/2019 10:45 AM EST Physical Therapy Note 07/06/19 1045 Rehab Evaluation Document Type contact Total Evaluation Minutes, Physical Therapy 0 Evaluation Not Performed Comment PT consult received but evaluation deferred as patient is requiring much sedation to prevent severe agitation. Will follow and will initiate PT when more appropriate. Irasema Recinos, PT Pager [phone] documented in this encounter Plan of Treatment Not on file documented as of this encounter Procedures Procedure Name Priority Date/Time Associated Diagnosis Comments HEMOGRAM Routine 07/15/2019 12:34 AM EST DIFFERENTIAL, AUTOMATED Routine 07/15/2019 12:34 AM EST HC CBC,PLT & AUTO DIFF Routine 9 12:34 AM EST BASIC METABOLIC PANEL Routine 07/15/2019 12:34 AM EST POTASSIUM STAT 07/14/2019 5:31 PM EST HC PHOSPHORUS, SERUM STAT 07/14/2019 5:31 PM EST HC MAGNESIUM, SERUM STAT 07/14/2019 5 :31 PM EST POCT GLUCOSE Routine 07/14/2019 4:30 PM EST POCT GLUCOSE Routine 07/14/2019 12:12 PM EST POTASSIUM STAT 07/14/2019 10:00 AM EST HC PHOSPHORUS, SERUM STAT 07/14/2019 10:00 AM EST HC MAGNESIUM, SERUM STAT 07/14/2019 1 0:00 AM EST POCT GLUCOSE Routine 07/14/2019 8:19 AM EST HC POTASSIUM STAT 07/14/2019 4:15 AM EST HC PHOSPHORUS, SERUM STAT 07/14/2019 4:15 AM EST HC MAGNESIUM, SERUM STAT 07/14/2019 4 :15 AM EST HEMOGRAM Routine 07/14/2019 1:05 AM EST DIFFERENTIAL, AUTOMATED Routine 07/14/2019 1:05 AM EST HC CBC,PLT & AUTO DIFF Routine 9 1:05 AM EST BASIC METABOLIC PANEL Routine 07/14/2019 1:05 AM EST POCT GLUCOSE Routine 07/14/2019 12:09 AM EST HC POTASSIUM STAT 07/13/2019 8:20 PM EST HC PHOSPHORUS, SERUM STAT 07/13/2019 8:20 PM EST HC MAGNESIUM, SERUM STAT 07/13/2019 8 :20 PM EST POCT GLUCOSE Routine 07/13/2019 8:19 PM EST POCT GLUCOSE Routine 07/13/2019 3:46 PM EST HC C. DIFF QUIK CHEK ANTIGEN Routine 07/13/2019 2:00 PM EST POCT GLUCOSE Routine 07/13/2019 11:35 AM EST XR CHEST ONE VIEW Routine 07/13/2019 9:5 4 AM EST POCT GLUCOSE Routine 07/13/2019 9:47 AM EST POCT GLUCOSE Routine 07/13/2019 7:41 AM EST HC POTASSIUM STAT 07/13/2019 7:40 AM EST HC PHOSPHORUS, SERUM STAT 07/13/2019 7:40 AM EST HC MAGNESIUM, SERUM STAT 07/13/2019 7 :40 AM EST HC POTASSIUM Routine 07/13/2019 5:15 AM EST POCT GLUCOSE Routine 07/13/2019 12:47 AM EST HEMOGRAM Routine 07/13/2019 12:40 AM EST DIFFERENTIAL, AUTOMATED Routine 07/13/2019 12:40 AM EST HC CBC,PLT & AUTO DIFF Routine 9 12:40 AM EST PHOSPHORUS Routine 07/13/2019 12:40 AM EST MAGNESIUM Routine 07/13/2019 12:40 AM EST BASIC METABOLIC PANEL Routine 07/13/2019 12:40 AM EST POCT GLUCOSE Routine 07/12/2019 8:07 PM EST HC POTASSIUM STAT 07/12/2019 6:00 PM EST HC PHOSPHORUS, SERUM STAT 07/12/2019 6:00 PM EST HC MAGNESIUM, SERUM STAT 07/12/2019 6 :00 PM EST POTASSIUM STAT 07/12/2019 4:29 PM EST PHOSPHORUS STAT 07/12/2019 4:29 PM EST MAGNESIUM STAT 07/12/2019 4:29 PM EST POCT GLUCOSE Routine 07/12/2019 3:55 PM EST POCT GLUCOSE Routine 07/12/2019 12:29 PM EST POTASSIUM STAT 07/12/2019 10:40 AM EST HC PHOSPHORUS, SERUM STAT 07/12/2019 10:40 AM EST HC MAGNESIUM, SERUM STAT 07/12/2019 1 0:40 AM EST EKG 12-LEAD STAT 07/12/2019 10:20 AM EST Altered mental status, unspecified altered mental status type POCT GLUCOSE Routine 07/12/2019 8:06 AM EST POCT GLUCOSE Routine 07/12/2019 3:31 AM EST HEMOGRAM Routine 07/12/2019 12:35 AM EST DIFFERENTIAL, AUTOMATED Routine 07/12/2019 12:35 AM EST HC CBC,PLT & AUTO DIFF Routine 9 12:35 AM EST HC PHOSPHORUS, SERUM Routine 07/12/2019 12:35 AM EST HC MAGNESIUM, SERUM Routine 07/12/2019 1 2:35 AM EST BASIC METABOLIC PANEL Routine 07/12/2019 12:35 AM EST POCT GLUCOSE Routine 07/11/2019 11:09 PM EST POCT GLUCOSE Routine 07/11/2019 8:19 PM EST POCT GLUCOSE Routine 07/11/2019 4:32 PM EST POCT GLUCOSE Routine 07/11/2019 12:00 PM EST EXTUBATE STAT 07/11/2019 11:22 AM EST POCT GLUCOSE Routine 07/11/2019 8:05 AM EST HC PHOSPHORUS, SERUM Routine 07/11/2019 5:52 AM EST HC MAGNESIUM, SERUM Routine 07/11/2019 5 :52 AM EST BASIC METABOLIC PANEL STAT 07/11/2019 5:52 AM EST POCT GLUCOSE Routine 07/11/2019 4:42 AM EST HEMOGRAM STAT 07/11/2019 12:35 AM EST DIFFERENTIAL, AUTOMATED STAT 07/11/2019 12:35 AM EST HC CBC,PLT & AUTO DIFF STAT 9 12:35 AM EST POCT GLUCOSE Routine 07/10/2019 11:55 PM EST POCT GLUCOSE Routine 07/10/2019 8:21 PM EST POCT GLUCOSE Routine 07/10/2019 4:06 PM EST POCT GLUCOSE Routine 07/10/2019 12:08 PM EST POCT GLUCOSE Routine 07/10/2019 8:29 AM EST HEMOGRAM STAT 07/10/2019 4:05 AM EST DIFFERENTIAL, AUTOMATED STAT 07/10/2019 4:05 AM EST HC CBC,PLT & AUTO DIFF STAT 9 4:05 AM EST HC PHOSPHORUS, SERUM STAT 07/10/2019 4:05 AM EST HC MAGNESIUM, SERUM STAT 07/10/2019 4 :05 AM EST BASIC METABOLIC PANEL STAT 07/10/2019 4:05 AM EST POCT GLUCOSE Routine 07/10/2019 4:04 AM EST EKG 12-LEAD Routine 07/10/2019 3:38 AM EST Bradycardia XR CHEST ONE VIEW STAT 07/10/2019 3:0 0 AM EST BLOOD GAS ARTERIAL POC Routine 9 2:50 AM EST POCT GLUCOSE Routine 07/09/2019 11:15 PM EST POCT GLUCOSE Routine 07/09/2019 9:02 PM EST POCT GLUCOSE Routine 07/09/2019 4:11 PM EST POCT GLUCOSE Routine 07/09/2019 12:01 PM EST EKG 12-LEAD STAT 07/09/2019 8:49 AM EST Hyperactive behavior POCT GLUCOSE Routine 07/09/2019 7:46 AM EST POCT GLUCOSE Routine 07/09/2019 4:19 AM EST HEMOGRAM STAT 07/09/2019 3:37 AM EST DIFFERENTIAL, AUTOMATED STAT 07/09/2019 3:37 AM EST HC CBC,PLT & AUTO DIFF STAT 9 3:37 AM EST HC PHOSPHORUS, SERUM Routine 07/09/2019 3:37 AM EST HC MAGNESIUM, SERUM Routine 07/09/2019 3 :37 AM EST BASIC METABOLIC PANEL STAT 07/09/2019 3:37 AM EST POCT GLUCOSE Routine 07/08/2019 11:55 PM EST POCT GLUCOSE Routine 07/08/2019 8:59 PM EST POCT GLUCOSE Routine 07/08/2019 4:30 PM EST POCT GLUCOSE Routine 07/08/2019 11:46 AM EST HC POTASSIUM Routine 07/08/2019 11:10 AM EST POCT GLUCOSE Routine 07/08/2019 7:36 AM EST HEMOGRAM STAT 07/08/2019 4:28 AM EST DIFFERENTIAL, AUTOMATED STAT 07/08/2019 4:28 AM EST HC CBC,PLT & AUTO DIFF STAT 9 4:28 AM EST HC PHOSPHORUS, SERUM Routine 07/08/2019 4:28 AM EST HC MAGNESIUM, SERUM Routine 07/08/2019 4 :28 AM EST BASIC METABOLIC PANEL STAT 07/08/2019 4:28 AM EST POCT GLUCOSE Routine 07/08/2019 4:07 AM EST POCT GLUCOSE Routine 07/08/2019 12:02 AM EST POCT GLUCOSE Routine 07/07/2019 7:34 PM EST POCT GLUCOSE Routine 07/07/2019 4:24 PM EST EKG 12-LEAD Routine 07/07/2019 2:23 PM EST Altered mental status, unspecified altered mental status type HC THYROID STIMULATING HORMONE, SERUM Routine 07/07/2019 1:00 PM EST POCT GLUCOSE Routine 07/07/2019 12:14 PM EST XR CHEST FOR VERIFYING VASCULAR ACCESS PICC PLACEMENT AT BEDSIDE Routine 07/07/2019 11:[address] BEDSIDE PICC LINE Routine 07/07/2019 10:54 AM EST POCT GLUCOSE Routine 07/07/2019 8:06 AM EST POCT GLUCOSE Routine 07/07/2019 4:23 AM EST HEMOGRAM STAT 07/07/2019 4:19 AM EST DIFFERENTIAL, AUTOMATED STAT 07/07/2019 4:19 AM EST HC CBC,PLT & AUTO DIFF STAT 9 4:19 AM EST HC TRIGLYCERIDES Routine 07/07/2019 4:19 AM EST PHOSPHORUS STAT 07/07/2019 4:19 AM EST MAGNESIUM STAT 07/07/2019 4:19 AM EST BASIC METABOLIC PANEL STAT 07/07/2019 4:19 AM EST POCT GLUCOSE Routine 07/07/2019 12:47 AM EST POCT GLUCOSE Routine 07/06/2019 8:18 PM EST POCT GLUCOSE Routine 07/06/2019 6:16 PM EST POCT GLUCOSE Routine 07/06/2019 4:05 PM EST POCT GLUCOSE Routine 07/06/2019 12:25 PM EST POCT GLUCOSE Routine 07/06/2019 8:18 AM EST POCT GLUCOSE Routine 07/06/2019 7:28 AM EST POCT GLUCOSE Routine 07/06/2019 3:32 AM EST HEMOGRAM STAT 07/06/2019 3:29 AM EST DIFFERENTIAL, AUTOMATED STAT 07/06/2019 3:29 AM EST HC CBC,PLT & AUTO DIFF STAT 9 3:29 AM EST BASIC METABOLIC PANEL STAT 07/06/2019 3:29 AM EST POCT GLUCOSE Routine 07/06/2019 12:21 AM EST EKG 12-LEAD STAT 07/06/2019 12:12 AM EST Altered mental status, unspecified altered mental status type BLOOD GAS VENOUS POC Routine 07/05/2019 10:07 PM EST POCT GLUCOSE Routine 07/05/2019 10:04 PM EST URINALYSIS WITH REFLEX CULTURE Routine 07/05/2019 9:17 PM EST HC BLOOD CULTURE- STAT 07/05/2019 9:0 0 PM EST ABORH RECHECK STATUS STAT 07/05/2019 8:40 PM EST CMP W/FASTING GLUCOSE STAT 07/05/2019 8:40 PM EST HEMOGRAM STAT 07/05/2019 8:40 PM EST DIFFERENTIAL, AUTOMATED STAT 07/05/2019 8:40 PM EST ABO/RH TYPING STAT 07/05/2019 8:40 PM EST HC BLOOD CULTURE- STAT 07/05/2019 8:4 0 PM EST HC PARTIAL THROMBOPLASTIN TIME STAT 07/05/2019 8:40 PM EST HC PROTHROMBIN TIME STAT 07/05/2019 8 :40 PM EST HC CBC,PLT & AUTO DIFF STAT 9 8:40 PM EST ANTIBODY SCREEN STAT 07/05/2019 8:40 PM EST HC ANTIBODY DETECTION,CAPTURE-R STAT 07/05/2019 8:40 PM EST XR CHEST ONE VIEW STAT 07/05/2019 7:5 6 PM EST POCT GLUCOSE Routine 07/05/2019 6:40 PM EST documented in this encounter Results * (ABNORMAL) Differential, Automated (07/15/2019 12:34 AM EST) Neutrophil % 66.9 % [facility] Neutrophil Absolute 9.51(H) 1.70 - 6.10 x10(3)/ L [facility] Lymph % 21.3 % [facility] Lymphocytes Abs 3.0 0.9 - 3.2 x10(3)/ L [facility] Monocyte % 7.6 % [facility] Monocyte Abs 1.1(H) 0.3 - 0.9 x10(3)/ L [facility] Eos % 2.0 % [facility] Eosinophils Abs 0.3 0.0 - 0.4 x10(3)/ L [facility] Basophil % 0.7 % [facility] Baso Absolute 0.1 0.0 - 0.1 x10(3)/ L [facility] Immature Gran % 1.50 % [facility] Comment: Immature granulocytes(IG's)percentage and absolute count will include metamyelocytes, myelocytes, and promyelocytes. Blood smears from CBCs yielding IG's will be scanned manually for concordance. If this scan disagrees with the automated IG or if promyelocytes are noted, a manual differential will be performed. Immature Gran Absolute 0.21(H) 0.00 - 0.04 x10(3)/ L [facility] Blood specimen (specimen) 07/15/2019 12:34 AM EST 07/15/2019 12:42 AM EST Narrative Resulting Agency Comment Spec In Lab Michael Jennings MD HEMATOLOGY ORDERA BLES [facility] [place] [address] * (ABNORMAL) Hemogram (07/15/2019 12:34 AM EST) White Blood Cell 14.2(H) 4.0 - 9.5 x10(3)/ L [facility] Red Blood Cell 4.75 4.58 - 5.54 x10(6)/mc L [facility] Hemoglobin 13.5(L) 13.7 - 16.5 gm/dL [facility] Hematocrit 40.4(L) 40.5 - 48.5 % [facility] Mean Cell Volume 85.1 82.9 - 93.1 fL [facility] Mean Cell Hemoglobin 28.4 27.5 - 32.1 pg [facility] Mean Cell Hemoglobin Concentration 33.4 32.0 - 35.7 gm/dL [facility] Platelet 287 145 - 357 x10(3)/mc L [facility] RDW Standard Deviation 40.3 36.0 - 45.0 [facility] RDW coefficient of variation 13.2 11.4 - 13.8 % [facility] Mean Platelet Volume 9.4 7.6 - 12.9 [facility] NRBC% auto 0.0 % [facility] NRBC Absolute 0.000 0.000 - 0.000 x10(3)/ L [facility] Blood specimen (specimen) 07/15/2019 12:34 AM EST 07/15/2019 12:42 AM EST Narrative Resulting Agency Comment Spec In Lab Michael Jennings MD HEMATOLOGY ORDERA BLES [facility] [place] [address] * (ABNORMAL) Basic Metabolic Panel (non-fasting) (07/15/2019 12:34 AM EST) Glucose 100 65 - 199 mg/dL [facility] Comment:Diabetes: >=200 mg/d L plus symptoms Blood Urea Nitrogen 25(H) 10 - 20 mg/dL [facility] Comment:result rechecked- Creatinine 0.76(L) 0.80 - 1.50 mg/dL [facility] Sodium 143 135 - 145 mmol/L [facility] Potassium 4.5 3.5 - 5.0 mmol/L [facility] Comment: Please note: ??Patients with WBC >100,000 may have falsely elevated Potassium levels. ??For accurate Potassium quantification in these patients send serum separator tube (gold top) for subsequent determinations. ??Contact the Clinical Chemistry Laboratory if there are any questions. Chloride 105 98 - 107 mmol/L [facility] Carbon Dioxide 26 22 - 31 mmol/L [facility] Anion Gap 12 5 - 15 mmol/L [facility] Calcium 9.3 8.5 - 10.5 mg/dL [facility] Est Glomerular Filtration Rate 115 >=60 mL/min/1. 73 m?? [facility] Comment: The eGFR was calculated using the CKD-EPI equation. As with all creatinine based estimates of kidney function, eGFR values calculated with the CKD-EPI equation are not accurate in patients with acute kidney failure, extremes of body mass or the acutely ill. [email or web address] eGFR 133 >=60 mL/min/1. 73 m?? [facility] Comment: The eGFR was calculated using the CKD-EPI equation. As with all creatinine based estimates of kidney function, eGFR values calculated with the CKD-EPI equation are not accurate in patients with acute kidney failure, extremes of body mass or the acutely ill. [email or web address] [email or web address] Blood specimen (specimen) 07/15/2019 12:34 AM EST 07/15/2019 12:42 AM EST Narrative Resulting Agency Comment Spec In Lab Gracy Talley MD CHEMISTRY ORDERABLES Performing Organization Address [facility]/ZIP Co de Phone Number [facility] [place] [address] * Potassium (07/14/2019 5:31 PM EST) Potassium 4.1 3.5 - 5.0 mmol/L [facility] Comment: Please note: ??Patients with WBC >100,000 may have falsely elevated Potassium levels. ??For accurate Potassium quantification in these patients send serum separator tube (gold top) for subsequent determinations. ??Contact the Clinical Chemistry Laboratory if there are any questions. Blood specimen (specimen) Venous Draw / Unknown 07/14/2019 5:31 PM EST 07/14/2019 5:48 PM EST Narrative Resulting Agency Comment Spec In Lab Michael Jennings MD CHEMISTRY ORDERAB LES Performing Organization Address [facility] Co de Phone Number [facility] [place] [address] * Magnesium (07/14/2019 5:31 PM EST) Magnesium 0.82 0.69 - 1.07 mmol/L [facility] Blood specimen (specimen) 07/14/2019 5:31 PM EST 07/14/2019 5:48 PM EST Narrative Resulting Agency Comment Spec In Lab Gracy Talley MD CHEMISTRY ORDERABLES Performing Organization Address City/[facility] Co de Phone Number [facility] [place] [address] * Phosphorus (07/14/2019 5:31 PM EST) Phosphorus 3.7 2.5 - 4.5 mg/dL [facility] Blood specimen (specimen) 07/14/2019 5:31 PM EST 07/14/2019 5:48 PM EST Narrative Resulting Agency Comment Spec In Lab Gracy Talley MD CHEMISTRY ORDERABLES Performing Organization Address [facility] de Phone Number [facility] [place] [address] * POCT Glucose (07/14/2019 4:30 PM EST) Glucose, POC 100 65 - 199 mg/dL [facility] Comment: Supplemental ranges: <140 mg/dL before meals <180 mg/dL all other times of the day Blood specimen (specimen) 07/14/2019 4:30 PM EST 07/14/2019 4:30 PM EST Gracy Talley MD POINT OF CARE TEST O RDERABLES Performing Organization Address [facility] Phone Number [facility] [place] [address] * POCT Glucose (07/14/2019 12:12 PM EST) Glucose, POC 110 65 - 199 mg/dL [facility] Comment: Supplemental ranges: <140 mg/dL before meals <180 mg/dL all other times of the day Blood specimen (specimen) 07/14/2019 12:12 PM EST 07/14/2019 12:12 PM EST Gracy Talley MD POINT OF CARE TEST O TERESSA Performing Organization Address [facility] de Phone Number [facility] [place] [address] * Potassium (07/14/2019 10:00 AM EST) Potassium 3.8 3.5 - 5.0 mmol/L [facility] Comment: Please note: ??Patients with WBC >100,000 may have falsely elevated Potassium levels. ??For accurate Potassium quantification in these patients send serum separator tube (gold top) for subsequent determinations. ??Contact the Clinical Chemistry Laboratory if there are any questions. Blood specimen (specimen) Venous Draw / Unknown 07/14/2019 10:00 AM EST 07/14/2019 10:32 AM EST Narrative Resulting Agency Comment Spec In Lab Michael Jennings MD CHEMISTRY ORDERAB LES Performing Organization Address [facility] Co de Phone Number [facility] [place] [address] * Magnesium (07/14/2019 10:00 AM EST) Magnesium 0.84 0.69 - 1.07 mmol/L [facility] Blood specimen (specimen) 07/14/2019 10:00 AM EST 07/14/2019 10:14 AM EST Narrative Resulting Agency Comment Spec In Lab Gracy Talley MD CHEMISTRY ORDERABLES Performing Organization Address [facility] Co de Phone Number [facility] [place] [address] * Phosphorus (07/14/2019 10:00 AM EST) Phosphorus 3.2 2.5 - 4.5 mg/dL [facility] Blood specimen (specimen) 07/14/2019 10:00 AM EST 07/14/2019 10:14 AM EST Narrative Resulting Agency Comment Spec In Lab Gracy Talley MD CHEMISTRY ORDERABLES Performing Organization Address [facility] de Phone Number [facility] [place] [address] * POCT Glucose (07/14/2019 8:19 AM EST) Glucose, POC 100 65 - 199 mg/dL [facility] Comment: Supplemental ranges: <140 mg/dL before meals <180 mg/dL all other times of the day Blood specimen (specimen) 07/14/2019 8:19 AM EST 07/14/2019 8:19 AM EST Gracy Talley MD POINT OF CARE TEST O RDERABLES Performing Organization Address [facility] de Phone Number [facility] [place] [address] * Potassium (07/14/2019 4:15 AM EST) Potassium 3.6 3.5 - 5.0 mmol/L [facility] Comment: Please note: ??Patients with WBC >100,000 may have falsely elevated Potassium levels. ??For accurate Potassium quantification in these patients send serum separator tube (gold top) for subsequent determinations. ??Contact the Clinical Chemistry Laboratory if there are any questions. Blood specimen (specimen) 07/14/2019 4:15 AM EST 07/14/2019 4:22 AM EST Narrative Resulting Agency Comment Spec In Lab Gracy Talley MD CHEMISTRY ORDERABLES Performing Organization Address [facility] Phone Number [facility] [place] [address] * Magnesium (07/14/2019 4:15 AM EST) Magnesium 0.82 0.69 - 1.07 mmol/L [facility] Blood specimen (specimen) 07/14/2019 4:15 AM EST 07/14/2019 4:22 AM EST Narrative Resulting Agency Comment Spec In Lab Gracy Talley MD CHEMISTRY ORDERABLES Performing Organization Address [facility] de Phone Number [facility] [place] [address] * Phosphorus (07/14/2019 4:15 AM EST) Phosphorus 2.9 2.5 - 4.5 mg/dL [facility] Blood specimen (specimen) 07/14/2019 4:15 AM EST 07/14/2019 4:22 AM EST Narrative Resulting Agency Comment Spec In Lab Gracy Talley MD CHEMISTRY ORDERABLES Performing Organization Address [facility]/ZIP Co de Phone Number [facility] [place] [address] * (ABNORMAL) Differential, Automated (07/14/2019 1:05 AM EST) Neutrophil % 71.1 % [facility] Neutrophil Absolute 11.41(H) 1.70 - 6.10 x10(3)/ L [facility] Lymph % 18.7 % [facility] Lymphocytes Abs 3.0 0.9 - 3.2 x10(3)/[facility] Monocyte % 8.0 % [facility] Monocyte Abs 1.3(H) 0.3 - 0.9 x10(3)/[facility] Eos % 0.6 % [facility] Eosinophils Abs 0.1 0.0 - 0.4 x10(3)/[facility] Basophil % 0.4 % [facility] Baso Absolute 0.1 0.0 - 0.1 x10(3)/[facility] Immature Gran % 1.20 % [facility] Comment: Immature granulocytes(IG's)percentage and absolute count will include metamyelocytes, myelocytes, and promyelocytes. Blood smears from CBCs yielding IG's will be scanned manually for concordance. If this scan disagrees with the automated IG or if promyelocytes are noted, a manual differential will be performed. Immature Gran Absolute 0.20(H) 0.00 - 0.04 x10(3)/ L [facility] Blood specimen (specimen) 07/14/2019 1:05 AM EST 07/14/2019 1:12 AM EST Narrative Resulting Agency Comment Spec In Lab Michael Jennings MD HEMATOLOGY ORDERA BLES Performing Organization Address City/[facility]/ZIP Co de Phone Number [facility] [place] [address] * (ABNORMAL) Hemogram (07/14/2019 1:05 AM EST) White Blood Cell 16.1(H) 4.0 - 9.5 x10(3)/ L [facility] Red Blood Cell 4.93 4.58 - 5.54 x10(6)/mc L [facility] Hemoglobin 13.8 13.7 - 16.5 gm/dL [facility] Hematocrit 41.3 40.5 - 48.5 % [facility] Mean Cell Volume 83.8 82.9 - 93.1 fL [facility] Mean Cell Hemoglobin 28.0 27.5 - 32.1 pg [facility] Mean Cell Hemoglobin Concentration 33.4 32.0 - 35.7 gm/dL [facility] Platelet 294 145 - 357 x10(3)/[facility] RDW Standard Deviation 39.1 36.0 - 45.0 [facility] RDW coefficient of variation 13.1 11.4 - 13.8 % [facility] Mean Platelet Volume 9.2 7.6 - 12.9 [facility] NRBC% auto 0.0 % [facility] NRBC Absolute 0.000 0.000 - 0.000 x10(3)/[facility] Blood specimen (specimen) 07/14/2019 1:05 AM EST 07/14/2019 1:12 AM EST Narrative Resulting Agency Comment Spec In Lab Michael Jennings MD HEMATOLOGY ORDERA BLES [facility] [place] [address] * (ABNORMAL) Basic Metabolic Panel (non-fasting) (07/14/2019 1:05 AM EST) Glucose 106 65 - 199 mg/dL [facility] Comment:Diabetes: >=200 mg/d L plus symptoms Blood Urea Nitrogen 13 10 - 20 mg/dL [facility] Creatinine 0.72(L) 0.80 - 1.50 mg/dL [facility] Sodium 140 135 - 145 mmol/L [facility] Potassium 3.8 3.5 - 5.0 mmol/L [facility] Comment: Please note: ??Patients with WBC >100,000 may have falsely elevated Potassium levels. ??For accurate Potassium quantification in these patients send serum separator tube (gold top) for subsequent determinations. ??Contact the Clinical Chemistry Laboratory if there are any questions. Chloride 103 98 - 107 mmol/L [facility] Carbon Dioxide 25 22 - 31 mmol/L [facility] Anion Gap 12 5 - 15 mmol/L [facility] Calcium 9.1 8.5 - 10.5 mg/dL [facility] Est Glomerular Filtration Rate 118 >=60 mL/min/1. 73 m?? [facility] Comment: The eGFR was calculated using the CKD-EPI equation. As with all creatinine based estimates of kidney function, eGFR values calculated with the CKD-EPI equation are not accurate in patients with acute kidney failure, extremes of body mass or the acutely ill. [email or web address] eGFR 136 >=60 mL/min/1. 73 m?? [facility] Comment: The eGFR was calculated using the CKD-EPI equation. As with all creatinine based estimates of kidney function, eGFR values calculated with the CKD-EPI equation are not accurate in patients with acute kidney failure, extremes of body mass or the acutely ill. [email or web address] Blood specimen (specimen) 07/14/2019 1:05 AM EST 07/14/2019 1:12 AM EST Narrative Resulting Agency Comment Spec In Lab Gracy Talley MD CHEMISTRY ORDERABLES [facility] [place] [address] * POCT Glucose (07/14/2019 12:09 AM EST) Glucose, POC 107 65 - 199 mg/dL [facility] Comment: Supplemental ranges: <140 mg/dL before meals <180 mg/dL all other times of the day Blood specimen (specimen) 07/14/2019 12:09 AM EST 07/14/2019 12:09 AM EST Gracy Talley MD POINT OF CARE TEST O RDERABLES Performing Organization Address [facility] Co de Phone Number [facility] [place] [address] * Magnesium (07/13/2019 8:20 PM EST) Magnesium 1.03 0.69 - 1.07 mmol/L [facility] Blood specimen (specimen) 07/13/2019 8:20 PM EST 07/13/2019 8:36 PM EST Narrative Resulting Agency Comment Spec In Lab Gracy Talley MD CHEMISTRY ORDERABLES Performing Organization Address [facility] Co de Phone Number [facility] [place] [address] * Phosphorus (07/13/2019 8:20 PM EST) Phosphorus 2.8 2.5 - 4.5 mg/dL [facility] Blood specimen (specimen) 07/13/2019 8:20 PM EST 07/13/2019 8:36 PM EST Narrative Resulting Agency Comment Spec In Lab Gracy Talley MD CHEMISTRY ORDERABLES Performing Organization Address [facility] Co de Phone Number [facility] [place] [address] * Potassium (07/13/2019 8:20 PM EST) Potassium 3.7 3.5 - 5.0 mmol/L [facility] Comment: Please note: ??Patients with WBC >100,000 may have falsely elevated Potassium levels. ??For accurate Potassium quantification in these patients send serum separator tube (gold top) for subsequent determinations. ??Contact the Clinical Chemistry Laboratory if there are any questions. Blood specimen (specimen) 07/13/2019 8:20 PM EST 07/13/2019 8:36 PM EST Narrative Resulting Agency Comment Spec In Lab Gracy Talley MD CHEMISTRY ORDERABLES Performing Organization Address [facility] Co de Phone Number [facility] [place] [address] * POCT Glucose (07/13/2019 8:19 PM EST) Glucose, POC 111 65 - 199 mg/dL [facility] Comment: Supplemental ranges: <140 mg/dL before meals <180 mg/dL all other times of the day Blood specimen (specimen) 07/13/2019 8:19 PM EST 07/13/2019 8:19 PM EST Gracy Talley MD POINT OF CARE TEST O RDERABLES Performing Organization Address [facility] Co de Phone Number [facility] [place] [address] * POCT Glucose (07/13/2019 3:46 PM EST) Glucose, POC 100 65 - 199 mg/dL [facility] Comment: Supplemental ranges: <140 mg/dL before meals <180 mg/dL all other times of the day Blood specimen (specimen) 07/13/2019 3:46 PM EST 07/13/2019 3:46 PM EST Gracy Talley MD POINT OF CARE TEST O RDERABLES Performing Organization Address [facility] Co de Phone Number [facility] [place] [address] * C. Difficile Screen (07/13/2019 2:00 PM EST) C Diff Interp Negative Negative [facility] Comment: C. diff ??Negative Clostridium difficile is not present in the specimen. If patient is having diarrhea suspected to be from an infectious cause, then Contact Precautions are still required. Stool specimen (specimen) 07/13/2019 2:00 PM EST 07/13/2019 2:22 PM EST Narrative Resulting Agency Comment Spec In Lab Sam Kumar APRN MICROBIOLOGY - G ENERAL ORDERABLES Performing Organization Address [facility] de Phone Number [facility] [place] [address] * POCT Glucose (07/13/2019 11:35 AM EST) Glucose, POC 108 65 - 199 mg/dL [facility] Comment: Supplemental ranges: <140 mg/dL before meals <180 mg/dL all other times of the day Blood specimen (specimen) 07/13/2019 11:35 AM EST 07/13/2019 11:35 AM EST Gracy Talley MD POINT OF CARE TEST O RDERABLES Performing Organization Address [facility] Co de Phone Number [facility] [place] [id number] * XR Chest One View (07/13/2019 9:54 AM EST) Anatomical Region Laterality Modality Chest N/A Digital Radiogra phy Impressions 07/13/2019 9:58 AM EST No pneumonia. Improved aeration of the lungs. Thank you for letting us participate in the care of this patient. For questions regarding this report, please contact the number below. ? Electronically signed by: Raghavendra Husain [facility] ([phone]), at 07/13/2019 9:58 AM Narrative 07/13/2019 9:58 AM EST EXAMINATION: XR CHEST ONE VIEW CLINICAL HISTORY: new cough and leukocytosis TECHNIQUE: AP view of the chest COMPARISON: July 10, 2019 FINDINGS: Low lung volumes accentuate pulmonary markings. No focal infiltrate is seen. Aeration of the lungs has improved since the prior study. The heart size is normal. There are no pleural effusions identified. The previously seen endotracheal tube has been removed. An enteric catheter reaches the level of the stomach. A right-sided PICC extends to the superior cavoatrial junction. Procedure Note Raghavendra Husain MD - 07/13/2019 EXAMINATION: XR CHEST ONE VIEW CLINICAL HISTORY: new cough and leukocytosis TECHNIQUE: AP view of the chest COMPARISON: July 10, 2019 FINDINGS: Low lung volumes accentuate pulmonary markings. No focal infiltrate is seen. Aeration of the lungs has improved since theprior study. The heart size is normal. There are no pleural effusions identified. The previously seen endotracheal tube has been removed. An entericcatheter reaches the level of the stomach. A right-sided PICC extends to thesuperior cavoatrial junction. IMPRESSION No pneumonia. Improved aeration of the lungs. Thank you for letting us participate in the care of this patient. Forquestions regarding this report, please contact the number below. Electronically signed by: Raghavendra Husain [facility]([phone]), at 07/13/2019 9:58 AM Darcy Jackson APRN IMG DX ORDERABLES * POCT Glucose (07/13/2019 9:47 AM EST) Glucose, POC 156 65 - 199 mg/dL [facility] Comment: Supplemental ranges: <140 mg/dL before meals <180 mg/dL all other times of the day Blood specimen (specimen) 07/13/2019 9:47 AM EST 07/13/2019 9:47 AM EST Gracy Talley MD POINT OF CARE TEST O RDERABLES [facility] [place] [address] * POCT Glucose (07/13/2019 7:41 AM EST) Glucose, POC 66 65 - 199 mg/dL [facility] Comment: Supplemental ranges: <140 mg/dL before meals <180 mg/dL all other times of the day Blood specimen (specimen) 07/13/2019 7:41 AM EST 07/13/2019 7:41 AM EST Gracy Talley MD POINT OF CARE TEST O RDERABLES Performing Organization Address [facility] Co de Phone Number [facility] [place] [address] * Potassium (07/13/2019 7:40 AM EST) Potassium 3.6 3.5 - 5.0 mmol/L [facility] Comment: Please note: ??Patients with WBC >100,000 may have falsely elevated Potassium levels. ??For accurate Potassium quantification in these patients send serum separator tube (gold top) for subsequent determinations. ??Contact the Clinical Chemistry Laboratory if there are any questions. Blood specimen (specimen) 07/13/2019 7:40 AM EST 07/13/2019 7:46 AM EST Narrative Resulting Agency Comment Spec In Lab Gracy Talley MD CHEMISTRY ORDERABLES Performing Organization Address [facility] Co de Phone Number [facility] [place] [address] * Magnesium (07/13/2019 7:40 AM EST) Magnesium 0.78 0.69 - 1.07 mmol/L [facility] Blood specimen (specimen) 07/13/2019 7:40 AM EST 07/13/2019 7:46 AM EST Narrative Resulting Agency Comment Spec In Lab Gracy Talley MD CHEMISTRY ORDERABLES Performing Organization Address [facility] Co de Phone Number [facility] [place] [address] * Phosphorus (07/13/2019 7:40 AM EST) Phosphorus 2.6 2.5 - 4.5 mg/dL [facility] Blood specimen (specimen) 07/13/2019 7:40 AM EST 07/13/2019 7:46 AM EST Narrative Resulting Agency Comment Spec In Lab Gracy Talley MD CHEMISTRY ORDERABLES Performing Organization Address [facility] Co de Phone Number [facility] [place] [address] * Potassium (07/13/2019 5:15 AM EST) [facility] Potassium 3.9 3.5 - 5.0 mmol/L [facility] Comment: Please note: ??Patients with WBC >100,000 may have falsely elevated Potassium levels. ??For accurate Potassium quantification in these patients send serum separator tube (gold top) for subsequent determinations. ??Contact the Clinical Chemistry Laboratory if there are any questions. Blood specimen (specimen) 07/13/2019 5:15 AM EST 07/13/2019 5:19 AM EST Narrative Resulting Agency Comment Spec In Lab Jovanni Espinoza Jr., MD CHEMISTRY ORDERA BLES Performing Organization Address [facility] Co de Phone Number [facility] [place] [address] * POCT Glucose (07/13/2019 12:47 AM EST) Glucose, POC 111 65 - 199 mg/dL [facility] Comment: Supplemental ranges: <140 mg/dL before meals <180 mg/dL all other times of the day Blood specimen (specimen) 07/13/2019 12:47 AM EST 07/13/2019 12:47 AM EST Gracy Talley MD POINT OF CARE TEST O RDERABLES Performing Organization Address [facility] Co de Phone Number [facility] [place] [address] * (ABNORMAL) Phosphorus (07/13/2019 12:40 AM EST) [facility] Phosphorus 2.4(L) 2.5 - 4.5 mg/dL [facility] Blood specimen (specimen) Venous Draw / Unknown 07/13/2019 12:40 AM EST 07/13/2019 1:18 AM EST Narrative Resulting Agency Comment Spec In Lab Sha Wright Emir PERAZA CHEMISTRY ORDERABLES Performing Organization Address City/[facility]/ZIP Co de Phone Number [facility] [place] [address] * Magnesium (07/13/2019 12:40 AM EST) [facility] Magnesium 0.80 0.69 - 1.07 mmol/L [facility] Blood specimen (specimen) Venous Draw / Unknown 07/13/2019 12:40 AM EST 07/13/2019 1:18 AM EST Narrative Resulting Agency Comment Spec In Lab hSa Field APRN CHEMISTRY ORDERABLES Performing Organization Address City/[facility]/ZIP Co de Phone Number [facility] [place] [address] * (ABNORMAL) Differential, Automated (07/13/2019 12:40 AM EST) [facility] Neutrophil % 75.1 % [facility] Neutrophil Absolute 11.73(H) 1.70 - 6.10 x10(3)/mc L [facility] Lymph % 14.0 % [facility] Lymphocytes Abs 2.2 0.9 - 3.2 x10(3)/mc L [facility] Monocyte % 9.4 % [facility] Monocyte Abs 1.5(H) 0.3 - 0.9 x10(3)/mc L [facility] Eos % 0.0 % [facility] Eosinophils Abs 0.0 0.0 - 0.4 x10(3)/mc L [facility] Basophil % 0.3 % [facility] Baso Absolute 0.0 0.0 - 0.1 x10(3)/[facility] Immature Gran % 1.20 % [facility] Comment: Immature granulocytes(IG's)percentage and absolute count will include metamyelocytes, myelocytes, and promyelocytes. Blood smears from CBCs yielding IG's will be scanned manually for concordance. If this scan disagrees with the automated IG or if promyelocytes are noted, a manual differential will be performed. Immature Gran Absolute 0.18(H) 0.00 - 0.04 x10(3)/[facility] Blood specimen (specimen) 07/13/2019 12:40 AM EST 07/13/2019 1:15 AM EST Narrative Resulting Agency Comment Spec In Lab Ada Gramajo TILE PICKER HEMATOLOGY ORDERAB LES Performing Organization Address City/State/[facility] Co de Phone Number [facility] [place] [address] * (ABNORMAL) Hemogram (07/13/2019 12:40 AM EST) White Blood Cell 15.6(H) 4.0 - 9.5 x10(3)/[facility] Red Blood Cell 4.71 4.58 - 5.54 x10(6)/[facility] Hemoglobin 13.5(L) 13.7 - 16.5 gm/dL [facility] Hematocrit 38.4(L) 40.5 - 48.5 % [facility] Mean Cell Volume 81.5(L) 82.9 - 93.1 fL [facility] Mean Cell Hemoglobin 28.7 27.5 - 32.1 pg [facility] Mean Cell Hemoglobin Concentration 35.2 32.0 - 35.7 gm/dL [facility] Platelet 278 145 - 357 x10(3)/[facility] RDW Standard Deviation 37.4 36.0 - 45.0 fL [facility] RDW coefficient of variation 12.6 11.4 - 13.8 % [facility] Mean Platelet Volume 10.1 7.6 - 12.9 fL [facility] NRBC% auto 0.0 % [facility] NRBC Absolute 0.000 0.000 - 0.000 x10(3)/mc L [facility] Blood specimen (specimen) 07/13/2019 12:40 AM EST 07/13/2019 1:15 AM EST Narrative Resulting Agency Comment Spec In Lab Ada Gramajo APRN HEMATOLOGY ORDERAB LES Performing Organization Address City/State/[facility] Co de Phone Number [facility] [place] [address] * (ABNORMAL) Basic Metabolic Panel (non-fasting) (07/13/2019 12:40 AM EST) Glucose 116 65 - 199 mg/dL [facility] Comment:Diabetes: >=200 mg/d L plus symptoms Blood Urea Nitrogen 15 10 - 20 mg/dL [facility] Creatinine 0.64(L) 0.80 - 1.50 mg/dL [facility] Sodium 140 135 - 145 mmol/L [facility] Potassium 3.4(L) 3.5 - 5.0 mmol/L [facility] Comment: Please note: ??Patients with WBC >100,000 may have falsely elevated Potassium levels. ??For accurate Potassium quantification in these patients send serum separator tube (gold top) for subsequent determinations. ??Contact the Clinical Chemistry Laboratory if there are any questions. Chloride 101 98 - 107 mmol/L [facility] Carbon Dioxide 25 22 - 31 mmol/L [facility] Anion Gap 14 5 - 15 mmol/L [facility] Calcium 9.2 8.5 - 10.5 mg/dL [facility] Est Glomerular Filtration Rate 123 >=60 mL/min/1. 73 m?? [facility] Comment: The eGFR was calculated using the CKD-EPI equation. As with all creatinine based estimates of kidney function, eGFR values calculated with the CKD-EPI equation are not accurate in patients with acute kidney failure, extremes of body mass or the acutely ill. [email or web address] NORMANnkf eGFR 143 >=60 mL/min/1. 73 m?? [facility] Comment: The eGFR was calculated using the CKD-EPI equation. As with all creatinine based estimates of kidney function, eGFR values calculated with the CKD-EPI equation are not accurate in patients with acute kidney failure, extremes of body mass or the acutely ill. [email or web address] NORMANnkf Blood specimen (specimen) 07/13/2019 12:40 AM EST 07/13/2019 1:15 AM EST Narrative Resulting Agency Comment Spec In Lab Gracy Talley MD CHEMISTRY ORDERABLES Performing Organization Address City/[facility]/ZIP Co de Phone Number [facility] [place] [address] * POCT Glucose (07/12/2019 8:07 PM EST) Glucose, POC 102 65 - 199 mg/dL [facility] Comment: Supplemental ranges: <140 mg/dL before meals <180 mg/dL all other times of the day Blood specimen (specimen) 07/12/2019 8:07 PM EST 07/12/2019 8:07 PM EST Gracy Talley MD POINT OF CARE TEST O RDERABLES Performing Organization Address City/[facility]/ZIP Co de Phone Number [facility] [place] [address] * Magnesium (07/12/2019 6:00 PM EST) Magnesium 0.89 0.69 - 1.07 mmol/L [facility] Blood specimen (specimen) 07/12/2019 6:00 PM EST 07/12/2019 6:24 PM EST Narrative Resulting Agency Comment Spec In Lab Gracy Talley MD CHEMISTRY ORDERABLES Performing Organization Address [facility] Co de Phone Number [facility] [place] [address] * Phosphorus (07/12/2019 6:00 PM EST) Phosphorus 3.1 2.5 - 4.5 mg/dL [facility] Blood specimen (specimen) 07/12/2019 6:00 PM EST 07/12/2019 6:24 PM EST Narrative Resulting Agency Comment Spec In Lab Gracy Talley MD CHEMISTRY ORDERABLES Performing Organization Address [facility] de Phone Number [facility] [place] [address] * Potassium (07/12/2019 6:00 PM EST) Potassium 3.5 3.5 - 5.0 mmol/L [facility] Comment: Please note: ??Patients with WBC >100,000 may have falsely elevated Potassium levels. ??For accurate Potassium quantification in these patients send serum separator tube (gold top) for subsequent determinations. ??Contact the Clinical Chemistry Laboratory if there are any questions. Blood specimen (specimen) 07/12/2019 6:00 PM EST 07/12/2019 6:24 PM EST Narrative Resulting Agency Comment Spec In Lab Gracy Talley MD CHEMISTRY ORDERABLES Performing Organization Address [facility] Co de Phone Number [facility] [place] [address] * Potassium (07/12/2019 4:29 PM EST) Potassium Disregard 3.5 - 5.0 [facility] Comment: Sample suspected to be contaminated. Nurse requested results removed. 07/12/19 19:08 spoke with Janice Monson. Please note: ??Patients with WBC >100,000 may have falsely elevated Potassium levels. ??For accurate Potassium quantification in these patients send serum separator tube (gold top) for subsequent determinations. ??Contact the Clinical Chemistry Laboratory if there are any questions. Please note: ??Patients with WBC >100,000 may have falsely elevated Potassium levels. ??For accurate Potassium quantification in these patients send serum separator tube (gold top) for subsequent determinations. ??Contact the Clinical Chemistry Laboratory if there are any questions. Corrected from 3.1 mMol/L [LOW] on 07/12/19 19:11:01 EST by Grace Hinojosa Blood specimen (specimen) Venous Draw / Unknown 07/12/2019 4:29 PM EST 07/12/2019 4:45 PM EST Narrative Resulting Agency Comment Spec In Lab Sam Kumar APRN CHEMISTRY ORDERA BLES Performing Organization Address [facility] Co de Phone Number [facility] [place] [address] * Magnesium (07/12/2019 4:29 PM EST) Magnesium Disregard 0.69 - 1.07 [facility] Comment: Sample suspected to be contaminated. Nurse requested results removed. 07/12/19 19:08 spoke with Janice Monson. Corrected from 0.70 mMol/L on 07/12/19 19:11:01 EST by Grace Hinojosa Blood specimen (specimen) 07/12/2019 4:29 PM EST 07/12/2019 4:37 PM EST Narrative Resulting Agency Comment Spec In Lab Gracy Talley MD CHEMISTRY ORDERABLES Performing Organization Address [facility]/ZIP Co de Phone Number [facility] [place] [address] * Phosphorus (07/12/2019 4:29 PM EST) Phosphorus Disregard 2.5 - 4.5 [facility] Comment: Sample suspected to be contaminated. Nurse requested results removed. 07/12/19 19:08 spoke with Janice Monson. Corrected from 8.6 mg/dL [HI] on 07/12/19 19:11:01 EST by Grace Hinojosa Blood specimen (specimen) 07/12/2019 4:29 PM EST 07/12/2019 4:37 PM EST Narrative Resulting Agency Comment Spec In Lab Gracy Talley MD CHEMISTRY ORDERABLES Performing Organization Address [facility] Co de Phone Number [facility] [place] [address] * POCT Glucose (07/12/2019 3:55 PM EST) Glucose, POC 104 65 - 199 mg/dL [facility] Comment: Supplemental ranges: <140 mg/dL before meals <180 mg/dL all other times of the day Blood specimen (specimen) 07/12/2019 3:55 PM EST 07/12/2019 3:55 PM EST Gracy Talley MD POINT OF CARE TEST O RDERABLES Performing Organization Address [facility] Co de Phone Number [facility] [place] [address] * POCT Glucose (07/12/2019 12:29 PM EST) Glucose, POC 98 65 - 199 mg/dL [facility] Comment: Supplemental ranges: <140 mg/dL before meals <180 mg/dL all other times of the day Blood specimen (specimen) 07/12/2019 12:29 PM EST 07/12/2019 12:29 PM EST Gracy Talley MD POINT OF CARE TEST O RDERABLES Performing Organization Address [facility] Co de Phone Number [facility] [place] [address] * (ABNORMAL) Potassium (07/12/2019 10:40 AM EST) Potassium 2.9(Criti allison) 3.5 - 5.0 mmol/L [facility] Comment: Called by: ADRIANNA, Read back by: Leonel Jasmine, Date/Time:07/12/19 11:56. Please note: ??Patients with WBC >100,000 may have falsely elevated Potassium levels. ??For accurate Potassium quantification in these patients send serum separator tube (gold top) for subsequent determinations. ??Contact the Clinical Chemistry Laboratory if there are any questions. Blood specimen (specimen) Venous Draw / Unknown 07/12/2019 10:40 AM EST 07/12/2019 11:05 AM EST Narrative Resulting Agency Comment Spec In Lab Sam Kumar TILE PICKER CHEMISTRY ORDERA BLES Performing Organization Address City/[facility] Co de Phone Number [facility] [place] [address] * Magnesium (07/12/2019 10:40 AM EST) Magnesium 0.81 0.69 - 1.07 mmol/L [facility] Blood specimen (specimen) 07/12/2019 10:40 AM EST 07/12/2019 11:03 AM EST Narrative Resulting Agency Comment Spec In Lab Gracy Talley MD CHEMISTRY ORDERABLES Performing Organization Address [facility] Co de Phone Number [facility] [place] [address] * Phosphorus (07/12/2019 10:40 AM EST) Phosphorus 2.9 2.5 - 4.5 mg/dL [facility] Comment:result rechecked-adrianna Blood specimen (specimen) 07/12/2019 10:40 AM EST 07/12/2019 11:03 AM EST Narrative Resulting Agency Comment Spec In Lab Gracy Talley MD CHEMISTRY ORDERABLES Performing Organization Address [facility] Co de Phone Number [facility] [place] [address] * EKG 12 Lead (07/12/2019 10:20 AM EST) Ventricular rate 47 BPM MUSE SYSTEM Atrial Rate 47 BPM MUSE SYSTEM P-R Interval 148 ms MUSE SYSTEM QRS Duration 112 ms MUSE SYSTEM Q-T Interval 450 ms MUSE SYSTEM QTC Calculated (Bezet) 398 ms MUSE SYSTEM Calculated P [place] 1 degrees MUSE SYSTEM Calculated R [place] 4 degrees MUSE SYSTEM Calculated T [place] 26 degrees MUSE SYSTEM INTERPRETATION Marked sinus bradycardia with sinus arrhythmia Nonspecfic ST segment changes Abnormal ECG When compared with ECG of 10-JUL-2019 03:38, Non-specific change in ST segment in Lateral leads Confirmed by MD Radha, Ernie Neely ([id number]) on 07/12/2019 11:31:34 AM MUSE SYSTEM 07/12/2019 10:2 0 AM EST 07/12/2019 11:31 AM EST Gracy Talley MD ECG ORDERABLES Performing Organization Address [facility] Co wi Phone Number MUSE SYSTEM * POCT Glucose (07/12/2019 8:06 AM EST) Glucose, POC 100 65 - 199 mg/dL [facility] Comment: Supplemental ranges: <140 mg/dL before meals <180 mg/dL all other times of the day Blood specimen (specimen) 07/12/2019 8:06 AM EST 07/12/2019 8:06 AM EST Gracy Talley MD POINT OF CARE TEST O RDERABLES Performing Organization Address [facility] Phone Number [facility] [place] [address] * POCT Glucose (07/12/2019 3:31 AM EST) Glucose, POC 84 65 - 199 mg/dL [facility] Comment: Supplemental ranges: <140 mg/dL before meals <180 mg/dL all other times of the day Blood specimen (specimen) 07/12/2019 3:31 AM EST 07/12/2019 3:31 AM EST Jovanni Espinoza Jr., MD POINT OF CARE TE ST ORDERABLES Performing Organization Address [facility]/State/ZIP Co de Phone Number [facility] [place] [address] * (ABNORMAL) Differential, Automated (07/12/2019 12:35 AM EST) Neutrophil % 63.4 % [facility] Neutrophil Absolute 6.21(H) 1.70 - 6.10 x10(3)/[facility] Lymph % 25.4 % [facility] Lymphocytes Abs 2.5 0.9 - 3.2 x10(3)/[facility] Monocyte % 9.9 % [facility] Monocyte Abs 1.0(H) 0.3 - 0.9 x10(3)/[facility] Eos % 0.1 % [facility] Eosinophils Abs 0.0 0.0 - 0.4 x10(3)/[facility] Basophil % 0.4 % [facility] Baso Absolute 0.0 0.0 - 0.1 x10(3)/[facility] Immature Gran % 0.80 % [facility] Comment: Immature granulocytes(IG's)percentage and absolute count will include metamyelocytes, myelocytes, and promyelocytes. Blood smears from CBCs yielding IG's will be scanned manually for concordance. If this scan disagrees with the automated IG or if promyelocytes are noted, a manual differential will be performed. Immature Gran Absolute 0.08(H) 0.00 - 0.04 x10(3)/ L [facility] Blood specimen (specimen) 07/12/2019 12:35 AM EST 07/12/2019 1:17 AM EST Narrative Resulting Agency Comment Spec In Lab Ada Gramajo TILE PICKER HEMATOLOGY ORDERAB LES [facility] [place] [address] * (ABNORMAL) Hemogram (07/12/2019 12:35 AM EST) White Blood Cell 9.8(H) 4.0 - 9.5 x10(3)/[facility] Red Blood Cell 4.20(L) 4.58 - 5.54 x10(6)/ L [facility] Hemoglobin 11.9(L) 13.7 - 16.5 gm/dL [facility] Hematocrit 35.3(L) 40.5 - 48.5 % [facility] Mean Cell Volume 84.0 82.9 - 93.1 fL [facility] Mean Cell Hemoglobin 28.3 27.5 - 32.1 pg [facility] Mean Cell Hemoglobin Concentration 33.7 32.0 - 35.7 gm/dL [facility] Platelet 226 145 - 357 x10(3)/[facility] RDW Standard Deviation 38.2 36.0 - 45.0 [facility]ORY RDW coefficient of variation 12.7 11.4 - 13.8 % [facility] Mean Platelet Volume 10.0 7.6 - 12.9 [facility]ORY NRBC% auto 0.0 % [facility] NRBC Absolute 0.000 0.000 - 0.000 x10(3)/[facility] Blood specimen (specimen) 07/12/2019 12:35 AM EST 07/12/2019 1:17 AM EST Narrative Resulting Agency Comment Spec In Lab Ada Gramajo TILE PICKER HEMATOLOGY ORDERAB LES [facility] [place] [address] * (ABNORMAL) Phosphorus (07/12/2019 12:35 AM EST) Pathologist [facility] Phosphorus 1.0(Critic al) 2.5 - 4.5 mg/dL [facility] Comment:Called by: jolene, Read back by: Shawna Otero, Date/Time:07/12/19 02:05. Blood specimen (specimen) 07/12/2019 12:35 AM EST 07/12/2019 1:17 AM EST Narrative Resulting Agency Comment Spec In Lab Ada Gramajo TILE PICKER CHEMISTRY ORDERABL ES Performing Organization Address [facility] de Phone Number [facility] [place] [address] * (ABNORMAL) Magnesium (07/12/2019 12:35 AM EST) Magnesium 0.68(L) 0.69 - 1.07 mmol/L [facility] Blood specimen (specimen) 07/12/2019 12:35 AM EST 07/12/2019 1:17 AM EST Narrative Resulting Agency Comment Spec In Lab Ada Gramajo TILE PICKER CHEMISTRY ORDERABL ES Performing Organization Address [facility] de Phone Number [facility] [place] [address] * (ABNORMAL) Basic Metabolic Panel (non-fasting) (07/12/2019 12:35 AM EST) Glucose 90 65 - 199 mg/dL [facility] Comment:Diabetes: >=200 mg/d L plus symptoms Blood Urea Nitrogen 20 10 - 20 mg/dL [facility] Creatinine 0.83 0.80 - 1.50 mg/dL [facility] Sodium 142 135 - 145 mmol/L [facility] Potassium 2.8(Criti allison) 3.5 - 5.0 mmol/L [facility] Comment: Called by: [facility], Read back by: Shawna Otero, Date/Time:07/12/19 02:05. Please note: ??Patients with WBC >100,000 may have falsely elevated Potassium levels. ??For accurate Potassium quantification in these patients send serum separator tube (gold top) for subsequent determinations. ??Contact the Clinical Chemistry Laboratory if there are any questions. Chloride 103 98 - 107 mmol/L [facility] Carbon Dioxide 27 22 - 31 mmol/L [facility] Anion Gap 12 5 - 15 mmol/L [facility] Calcium 8.8 8.5 - 10.5 mg/dL [facility] Est Glomerular Filtration Rate 111 >=60 mL/min/1. 73 m?? [facility] Comment: The eGFR was calculated using the CKD-EPI equation. As with all creatinine based estimates of kidney function, eGFR values calculated with the CKD-EPI equation are not accurate in patients with acute kidney failure, extremes of body mass or the acutely ill. [email or web address] eGFR 128 >=60 mL/min/1. 73 m?? [facility] Comment: The eGFR was calculated using the CKD-EPI equation. As with all creatinine based estimates of kidney function, eGFR values calculated with the CKD-EPI equation are not accurate in patients with acute kidney failure, extremes of body mass or the acutely ill. [email or web address] Blood specimen (specimen) 07/12/2019 12:35 AM EST 07/12/2019 1:17 AM EST Narrative Resulting Agency Comment Spec In Lab Gracy Talley MD CHEMISTRY ORDERABLES [facility] [place] [address] * POCT Glucose (07/11/2019 11:09 PM EST) Glucose, POC 84 65 - 199 mg/dL [facility] Comment: Supplemental ranges: <140 mg/dL before meals <180 mg/dL all other times of the day Blood specimen (specimen) 07/11/2019 11:09 PM EST 07/11/2019 11:09 PM EST Jovanni Espinoza Jr., MD POINT OF CARE TE ST ORDERABLES [facility] [place] [address] * POCT Glucose (07/11/2019 8:19 PM EST) Glucose, POC 78 65 - 199 mg/dL [facility] Comment: Supplemental ranges: <140 mg/dL before meals <180 mg/dL all other times of the day Blood specimen (specimen) 07/11/2019 8:19 PM EST 07/11/2019 8:19 PM EST Jovanni Espinoza Jr., MD POINT OF CARE TE ST ORDERABLES [facility] [place] [address] * POCT Glucose (07/11/2019 4:32 PM EST) Glucose, POC 84 65 - 199 mg/dL [facility] Comment: Supplemental ranges: <140 mg/dL before meals <180 mg/dL all other times of the day Blood specimen (specimen) 07/11/2019 4:32 PM EST 07/11/2019 4:32 PM EST Jovanni Espinoza Jr., MD POINT OF CARE TE ST ORDERABLES Performing Organization Address City/[facility]/ZIP Co de Phone Number [facility] [place] [address] * POCT Glucose (07/11/2019 12:00 PM EST) Glucose, POC 97 65 - 199 mg/dL [facility] Comment: Supplemental ranges: <140 mg/dL before meals <180 mg/dL all other times of the day Blood specimen (specimen) 07/11/2019 12:00 PM EST 07/11/2019 12:00 PM EST Jovanni Espinoza Jr., MD POINT OF CARE TE ST ORDERABLES [facility] [place] [address] * POCT Glucose (07/11/2019 8:05 AM EST) Pathologist [facility] Glucose, POC 114 65 - 199 mg/dL [facility] Comment: Supplemental ranges: <140 mg/dL before meals <180 mg/dL all other times of the day Blood specimen (specimen) 07/11/2019 8:05 AM EST 07/11/2019 8:05 AM EST Jovanni Espinoza Jr., MD POINT OF CARE TE ST ORDERABLES Performing Organization Address City/[facility]/ZIP Co de Phone Number [facility] [place] [address] * Phosphorus (07/11/2019 5:52 AM EST) [facility] Phosphorus 3.8 2.5 - 4.5 mg/dL [facility] Blood specimen (specimen) 07/11/2019 5:52 AM EST 07/11/2019 5:58 AM EST Narrative Resulting Agency Comment Spec In Lab Sam Kumar TILE PICKER CHEMISTRY ORDERA BLES Performing Organization Address [facility] Co de Phone Number [facility] [place] [address] * Magnesium (07/11/2019 5:52 AM EST) [facility] Magnesium 0.89 0.69 - 1.07 mmol/L [facility] Blood specimen (specimen) 07/11/2019 5:52 AM EST 07/11/2019 5:58 AM EST Narrative Resulting Agency Comment Spec In Lab Sam Kumar TILE PICKER CHEMISTRY ORDERA BLES Performing Organization Address [facility] Co de Phone Number [facility] [place] [address] * (ABNORMAL) Basic Metabolic Panel (non-fasting) (07/11/2019 5:52 AM EST) [facility] Glucose 122 65 - 199 mg/dL [facility] Comment:Diabetes: >=200 mg/d L plus symptoms Blood Urea Nitrogen 22(H) 10 - 20 mg/dL [facility] Creatinine 0.69(L) 0.80 - 1.50 mg/dL [facility] Sodium 141 135 - 145 mmol/L [facility] Potassium 4.5 3.5 - 5.0 mmol/L [facility] Comment: Please note: ??Patients with WBC >100,000 may have falsely elevated Potassium levels. ??For accurate Potassium quantification in these patients send serum separator tube (gold top) for subsequent determinations. ??Contact the Clinical Chemistry Laboratory if there are any questions. Chloride 104 98 - 107 mmol/L [facility] Carbon Dioxide 28 22 - 31 mmol/L [facility] Anion Gap 9 5 - 15 mmol/L [facility] Calcium 8.8 8.5 - 10.5 mg/dL [facility] Est Glomerular Filtration Rate 120 >=60 mL/min/1. 73 m?? [facility] Comment: The eGFR was calculated using the CKD-EPI equation. As with all creatinine based estimates of kidney function, eGFR values calculated with the CKD-EPI equation are not accurate in patients with acute kidney failure, extremes of body mass or the acutely ill. [email or web address] eGFR 139 >=60 mL/min/1. 73 m?? [facility] Comment: The eGFR was calculated using the CKD-EPI equation. As with all creatinine based estimates of kidney function, eGFR values calculated with the CKD-EPI equation are not accurate in patients with acute kidney failure, extremes of body mass or the acutely ill. [email or web address] Blood specimen (specimen) 07/11/2019 5:52 AM EST 07/11/2019 5:58 AM EST Narrative Resulting Agency Comment Spec In Lab Sam Kumar TILE PICKER CHEMISTRY ORDERA BLES [facility] [place] [address] * POCT Glucose (07/11/2019 4:42 AM EST) Pathologist [facility] Glucose, POC 117 65 - 199 mg/dL [facility] Comment: Supplemental ranges: <140 mg/dL before meals <180 mg/dL all other times of the day Blood specimen (specimen) 07/11/2019 4:42 AM EST 07/11/2019 4:42 AM EST Jovanni Espinoza Jr., MD POINT OF CARE TE ST ORDERABLES [facility] [place] [address] * (ABNORMAL) Differential, Automated (07/11/2019 12:35 AM EST) [facility] Neutrophil % 75.3 % [facility] Neutrophil Absolute 6.52(H) 1.70 - 6.10 x10(3)/mc L [facility] Lymph % 19.3 % [facility] Lymphocytes Abs 1.7 0.9 - 3.2 x10(3)/mc L [facility] Monocyte % 4.6 % [facility] Monocyte Abs 0.4 0.3 - 0.9 x10(3)/ L [facility] Eos % 0.0 % [facility] Eosinophils Abs 0.0 0.0 - 0.4 x10(3)/ L [facility] Basophil % 0.1 % [facility] Baso Absolute 0.0 0.0 - 0.1 x10(3)/mc L [facility] Immature Gran % 0.70 % [facility] Comment: Immature granulocytes(IG's)percentage and absolute count will include metamyelocytes, myelocytes, and promyelocytes. Blood smears from CBCs yielding IG's will be scanned manually for concordance. If this scan disagrees with the automated IG or if promyelocytes are noted, a manual differential will be performed. Immature Gran Absolute 0.06(H) 0.00 - 0.04 x10(3)/[facility] Blood specimen (specimen) 07/11/2019 12:35 AM EST 07/11/2019 12:43 AM EST Narrative Resulting Agency Comment Spec In Lab Sam Kumar TILE PICKER HEMATOLOGY ORDER MERYL [facility] [place] [address] * (ABNORMAL) Hemogram (07/11/2019 12:35 AM EST) White Blood Cell 8.7 4.0 - 9.5 x10(3)/[facility] Red Blood Cell 4.12(L) 4.58 - 5.54 x10(6)/[facility] Hemoglobin 12.0(L) 13.7 - 16.5 gm/dL [facility] Hematocrit 35.5(L) 40.5 - 48.5 % [facility] Mean Cell Volume 86.2 82.9 - 93.1 fL [facility] Mean Cell Hemoglobin 29.1 27.5 - 32.1 pg [facility] Mean Cell Hemoglobin Concentration 33.8 32.0 - 35.7 gm/dL [facility] Platelet 208 145 - 357 x10(3)/[facility] RDW Standard Deviation 40.6 36.0 - 45.0 [facility] RDW coefficient of variation 13.1 11.4 - 13.8 % [facility] Mean Platelet Volume 10.0 7.6 - 12.9 [facility] NRBC% auto 0.0 % [facility] NRBC Absolute 0.000 0.000 - 0.000 x10(3)/[facility] Blood specimen (specimen) 07/11/2019 12:35 AM EST 07/11/2019 12:43 AM EST Narrative Resulting Agency Comment Spec In Lab Sam Kumar APRN HEMATOLOGY ORDER MERYL Performing Organization Address [facility] Co de Phone Number [facility] [place] [address] * POCT Glucose (07/10/2019 11:55 PM EST) Glucose, POC 108 65 - 199 mg/dL [facility] Comment: Supplemental ranges: <140 mg/dL before meals <180 mg/dL all other times of the day Blood specimen (specimen) 07/10/2019 11:55 PM EST 07/10/2019 11:55 PM EST Jovanni Espinoza Jr., MD POINT OF CARE TE ST ORDERABLES Performing Organization Address [facility] Co de Phone Number [facility] [place] [address] * POCT Glucose (07/10/2019 8:21 PM EST) Glucose, POC 88 65 - 199 mg/dL [facility] Comment: Supplemental ranges: <140 mg/dL before meals <180 mg/dL all other times of the day Blood specimen (specimen) 07/10/2019 8:21 PM EST 07/10/2019 8:21 PM EST Jovanni Espinoza Jr., MD POINT OF CARE TE ST ORDERABLES Performing Organization Address [facility] Co de Phone Number [facility] [place] [address] * POCT Glucose (07/10/2019 4:06 PM EST) Glucose, POC 108 65 - 199 mg/dL [facility] Comment: Supplemental ranges: <140 mg/dL before meals <180 mg/dL all other times of the day Blood specimen (specimen) 07/10/2019 4:06 PM EST 07/10/2019 4:06 PM EST Jovanni Espinoza Jr., MD POINT OF CARE TE ST ORDERABLES Performing Organization Address City/State/[facility] Co de Phone Number [facility] [place] [address] * POCT Glucose (07/10/2019 12:08 PM EST) Glucose, POC 117 65 - 199 mg/dL [facility] Comment: Supplemental ranges: <140 mg/dL before meals <180 mg/dL all other times of the day Blood specimen (specimen) 07/10/2019 12:08 PM EST 07/10/2019 12:08 PM EST Jovanni Espinoza Jr., MD POINT OF CARE [facility] ORDERABLES Performing Organization Address [facility] de Phone Number [facility] [place] [address] * POCT Glucose (07/10/2019 8:29 AM EST) Glucose, POC 98 65 - 199 mg/dL [facility] Comment: Supplemental ranges: <140 mg/dL before meals <180 mg/dL all other times of the day Blood specimen (specimen) 07/10/2019 8:29 AM EST 07/10/2019 8:29 AM EST Jovanni Espinoza Jr., MD POINT OF CARE TE ST ORDERABLES Performing Organization Address [facility] Co de Phone Number [facility] [place] [address] * (ABNORMAL) Differential, Automated (07/10/2019 4:05 AM EST) Neutrophil % 73.6 % [facility] Neutrophil Absolute 4.51 1.70 - 6.10 x10(3)/mc L [facility] Lymph % 22.3 % [facility] Lymphocytes Abs 1.4 0.9 - 3.2 x10(3)/mc L [facility] Monocyte % 3.1 % [facility] Monocyte Abs 0.2(L) 0.3 - 0.9 x10(3)/mc L [facility] Eos % 0.0 % [facility] Eosinophils Abs 0.0 0.0 - 0.4 x10(3)/[facility] Basophil % 0.3 % [facility] Baso Absolute 0.0 0.0 - 0.1 x10(3)/[facility] Immature Gran % 0.70 % [facility] Comment: Immature granulocytes(IG's)percentage and absolute count will include metamyelocytes, myelocytes, and promyelocytes. Blood smears from CBCs yielding IG's will be scanned manually for concordance. If this scan disagrees with the automated IG or if promyelocytes are noted, a manual differential will be performed. Immature Gran Absolute 0.04 0.00 - 0.04 x10(3)/[facility] Blood specimen (specimen) 07/10/2019 4:05 AM EST 07/10/2019 4:14 AM EST Narrative Resulting Agency Comment Spec In Lab Jessica OCHOA HEMATOLOGY ORDERABLE S [facility] [place] [address] * (ABNORMAL) Hemogram (07/10/2019 4:05 AM EST) White Blood Cell 6.1 4.0 - 9.5 x10(3)/[facility] Red Blood Cell 4.41(L) 4.58 - 5.54 x10(6)/ L [facility] Hemoglobin 12.4(L) 13.7 - 16.5 gm/dL [facility] Hematocrit 36.9(L) 40.5 - 48.5 % [facility] Mean Cell Volume 83.7 82.9 - 93.1 fL [facility] Mean Cell Hemoglobin 28.1 27.5 - 32.1 pg [facility] Mean Cell Hemoglobin Concentration 33.6 32.0 - 35.7 gm/dL [facility] Platelet 169 145 - 357 x10(3)/mc L [facility] RDW Standard Deviation 39.8 36.0 - 45.0 [facility] RDW coefficient of variation 13.2 11.4 - 13.8 % [facility] Mean Platelet Volume 9.7 7.6 - 12.9 [facility] NRBC% auto 0.0 % [facility] NRBC Absolute 0.000 0.000 - 0.000 x10(3)/mc L [facility] Blood specimen (specimen) 07/10/2019 4:05 AM EST 07/10/2019 4:14 AM EST Narrative Resulting Agency Comment Spec In Lab Jessica OCHOA HEMATOLOGY ORDERABLE S Performing Organization Address [facility] Co de Phone Number [facility] [place] [address] * Phosphorus (07/10/2019 4:05 AM EST) Phosphorus 4.0 2.5 - 4.5 mg/dL [facility] Blood specimen (specimen) 07/10/2019 4:05 AM EST 07/10/2019 4:14 AM EST Narrative Resulting Agency Comment Spec In Lab Jovanni Espinoza Jr., MD CHEMISTRY ORDERA BLES Performing Organization Address [facility] Co de Phone Number [facility] [place] [address] * Magnesium (07/10/2019 4:05 AM EST) Magnesium 0.83 0.69 - 1.07 mmol/L [facility] Blood specimen (specimen) 07/10/2019 4:05 AM EST 07/10/2019 4:14 AM EST Narrative Resulting Agency Comment Spec In Lab Jovanni Espinoza Jr., MD CHEMISTRY ORDERA BLEYudi [facility] [place] [address] * (ABNORMAL) Basic Metabolic Panel (non-fasting) (07/10/2019 4:05 AM EST) Glucose 139 65 - 199 mg/dL [facility] Comment:Diabetes: >=200 mg/d L plus symptoms Blood Urea Nitrogen 20 10 - 20 mg/dL [facility] Comment:result rechecked-JSD Creatinine 0.67(L) 0.80 - 1.50 mg/dL [facility] Sodium 141 135 - 145 mmol/L [facility] Potassium 4.5 3.5 - 5.0 mmol/L [facility] Comment: Please note: ??Patients with WBC >100,000 may have falsely elevated Potassium levels. ??For accurate Potassium quantification in these patients send serum separator tube (gold top) for subsequent determinations. ??Contact the Clinical Chemistry Laboratory if there are any questions. Chloride 103 98 - 107 mmol/L [facility] Carbon Dioxide 27 22 - 31 mmol/L [facility] Anion Gap 11 5 - 15 mmol/L [facility] Calcium 9.0 8.5 - 10.5 mg/dL [facility] Est Glomerular Filtration Rate 121 >=60 mL/min/1. 73 m?? [facility] Comment: The eGFR was calculated using the CKD-EPI equation. As with all creatinine based estimates of kidney function, eGFR values calculated with the CKD-EPI equation are not accurate in patients with acute kidney failure, extremes of body mass or the acutely ill. [email or web address] eGFR 140 >=60 mL/min/1. 73 m?? [facility] Comment: The eGFR was calculated using the CKD-EPI equation. As with all creatinine based estimates of kidney function, eGFR values calculated with the CKD-EPI equation are not accurate in patients with acute kidney failure, extremes of body mass or the acutely ill. [email or web address] Blood specimen (specimen) 07/10/2019 4:05 AM EST 07/10/2019 4:14 AM EST Narrative Resulting Agency Comment Spec In Lab Jovanni Espinoza Jr., MD CHEMISTRY ORDERA BLES Performing Organization Address [facility] Co de Phone Number [facility] [place] [address] * POCT Glucose (07/10/2019 4:04 AM EST) Glucose, POC 125 65 - 199 mg/dL [facility] Comment: Supplemental ranges: <140 mg/dL before meals <180 mg/dL all other times of the day Blood specimen (specimen) 07/10/2019 4:04 AM EST 07/10/2019 4:04 AM EST Jovanni Espinoza Jr., MD POINT OF CARE TE ST ORDERABLES Performing Organization Address [facility] Co de Phone Number [facility] [place] [address] * EKG 12 Lead (07/10/2019 3:38 AM EST) Ventricular rate 46 BPM MUSE SYSTEM Atrial Rate 46 BPM MUSE SYSTEM P-R Interval 186 ms MUSE SYSTEM QRS Duration 104 ms MUSE SYSTEM Q-T Interval 506 ms MUSE SYSTEM QTC Calculated (Bezet) 442 ms MUSE SYSTEM Calculated P Lansing 10 degrees MUSE SYSTEM Calculated R [place]ing 45 degrees MUSE SYSTEM Calculated T Lansing 48 degrees MUSE SYSTEM INTERPRETATION Marked sinus bradycardia with sinus arrhythmia Abnormal ECG When compared with ECG of 09-JUL-2019 08:49, Vent. rate has decreased BY ??34 BPM Confirmed by MD Davies Daniel ([id number]) on 07/10/2019 3:38:50 PM MUSE SYSTEM 07/10/2019 3:38 AM EST 07/10/2019 3:38 PM EST Jovanni Espinoza Jr., MD ECG ORDERABLES Performing Organization Address [facility] Co de Phone Number MUSE SYSTEM * XR Chest One View (07/10/2019 3:00 AM EST) Anatomical Region Laterality Modality Chest N/A Digital Radiogra phy Impressions 07/10/2019 4:01 AM EST Low lung volumes with perihilar and lower lobe opacities that may represent any combination of atelectasis, aspiration pneumonitis and/or pneumonia. I have personally reviewed the image(s) and the residents interpretation and agree with the findings, Emelia Mcallister at 07/10/2019 4:01 AM Thank you for letting us participate in the care of this patient. For questions regarding this report, please contact the number below. ? Electronically signed by: Emelia Mcallister [facility] ([phone]), at 07/10/2019 4:01 AM Narrative 07/10/2019 4:01 AM EST EXAMINATION: XR CHEST ONE VIEW CLINICAL HISTORY: recurrent desaturation episodes TECHNIQUE: 1 view of the chest COMPARISON: Chest radiograph dated 07/07/2019. FINDINGS: An ET tube tip is 3.8 cm above the jv. An enteric tube tip extends below the diaphragm, tip not imaged. A right PICC terminates at the superior cavoatrial junction. Low lung volumes. There are streaky perihilar and bibasilar opacities. No large effusion or pneumothorax. The cardiomediastinal silhouette is partially obscured. No acute osseous findings. Procedure Note Emelia Mcallister MD - 07/10/2019 EXAMINATION: XR CHEST ONE VIEW CLINICAL HISTORY: recurrent desaturation episodes TECHNIQUE: 1 view of the chest COMPARISON: Chest radiograph dated 07/07/2019. FINDINGS: An ET tube tip is 3.8 cm above the jv. An enteric tube tip extendsbelow the diaphragm, tip not imaged. A right PICC terminates at the superiorcavoatrial junction. Low lung volumes. There are streaky perihilar and bibasilar opacities. Nolarge effusion or pneumothorax. The cardiomediastinal silhouette is partially obscured. No acute osseous findings. IMPRESSION Low lung volumes with perihilar and lower lobe opacities that mayrepresent any combination of atelectasis, aspiration pneumonitis and/or pneumonia. I have personally reviewed the image(s) and the residents interpretationand agree with the findings, Emelia Mcallister at 07/10/2019 4:01 AM Thank you for letting us participate in the care of this patient. Forquestions regarding this report, please contact the number below. Jovanni Espinoza Jr., MD IMG DX ORDERABLE S * (ABNORMAL) BLOOD GAS 2 ARTERIAL (07/10/2019 2:50 AM EST) pH, Arterial 7.40 7.35 - 7.45 [facility] PCO2, Arterial 44 35 - 45 mmHg [facility] PO2, Arterial 62(L) 85 - 104 mmHg [facility] Bicarbonate, Arterial 26.7(H) 20.0 - 26.0 mmol/L [facility] Base Excess, Arterial 1.9 -3.0 - 3.0 mmol/L [facility] Hgb Blood Gas 13.3(L) 13.7 - 16.5 gm/dL [facility] Oxyhemoglobin, Arterial 91.6(L) 94.0 - 97.0 % [facility] Carboxyhemoglob in, Arterial 0.3 % [facility] Comment: Nonsmokers: 0.5-1.5% COHB Smokers: Variable, but usually less than 10% Toxic: 20-30% COHB Lethal: Greater than 60% COHB Methemoglobin, Arterial 0.4 <=1.5 % [facility] Na Whole Blood 139 135 - 145 mmol/L [facility] K Whole Blood 4.4 3.5 - 5.0 mmol/L [facility] Comment: Please note: Patients with WBC >100,000 may have falsely elevated Potassium levels. Contact the Clinical Chemistry Laboratory if there are any questions. ICa Whole Blood 1.23 1.15 - 1.33 mmol/L [facility] Comment: Note: ??Total bilirubin higher than 20 mg/dL may lead to falsely low ionized calcium. CL Whole Blood 104 98 - 107 mmol/L [facility] Gluc Whole Bld 135 65 - 199 mg/dL [facility] Comment:Diabetes: >=200 mg/d L plus symptoms. Lactate WB 0.9 0.5 - 2.2 mmol/L [facility] FIO2 Art 70 % [facility] PF Ratio Art 89 [facility] Blood specimen (specimen) 07/10/2019 2:50 AM EST 07/10/2019 2:50 AM EST Jovanni Espinoza Jr., MD POINT OF CARE TE ST ORDERABLES Performing Organization Address [facility] Co de Phone Number [facility] [place] [address] * POCT Glucose (07/09/2019 11:15 PM EST) Glucose, POC 107 65 - 199 mg/dL [facility] Comment: Supplemental ranges: <140 mg/dL before meals <180 mg/dL all other times of the day Blood specimen (specimen) 07/09/2019 11:15 PM EST 07/09/2019 11:15 PM EST Jovanni Espinoza Jr., MD POINT OF CARE TE ST ORDERABLES Performing Organization Address [facility] Co de Phone Number [facility] [place] [address] * POCT Glucose (07/09/2019 9:02 PM EST) Glucose, POC 119 65 - 199 mg/dL [facility] Comment: Supplemental ranges: <140 mg/dL before meals <180 mg/dL all other times of the day Blood specimen (specimen) 07/09/2019 9:02 PM EST 07/09/2019 9:02 PM EST Jovanni Espinoza Jr., MD POINT OF CARE TE ST ORDERABLES Performing Organization Address [facility] de Phone Number [facility] [place] [address] * POCT Glucose (07/09/2019 4:11 PM EST) Glucose, POC 120 65 - 199 mg/dL [facility] Comment: Supplemental ranges: <140 mg/dL before meals <180 mg/dL all other times of the day Blood specimen (specimen) 07/09/2019 4:11 PM EST 07/09/2019 4:11 PM EST Jovanni Espinoza Jr., MD POINT OF CARE TE ST ORDERABLES Performing Organization Address [facility] Phone Number [facility] [place] [address] * POCT Glucose (07/09/2019 12:01 PM EST) Glucose, POC 101 65 - 199 mg/dL [facility] Comment: Supplemental ranges: <140 mg/dL before meals <180 mg/dL all other times of the day Blood specimen (specimen) 07/09/2019 12:01 PM EST 07/09/2019 12:01 PM EST Jovanni Espinoza Jr., MD POINT OF CARE TE ST ORDERABLES Performing Organization Address [facility] Co de Phone Number [facility] [place] [address] * EKG 12 Lead (07/09/2019 8:49 AM EST) Ventricular rate 80 BPM MUSE SYSTEM Atrial Rate 80 BPM MUSE SYSTEM P-R Interval 152 ms MUSE SYSTEM QRS Duration 100 ms MUSE SYSTEM Q-T Interval 398 ms MUSE SYSTEM QTC Calculated (Bezet) 459 ms MUSE SYSTEM Calculated P Lansing 20 degrees MUSE SYSTEM Calculated R Lansing -9 degrees MUSE SYSTEM Calculated T Lansing 49 degrees MUSE SYSTEM INTERPRETATION Normal sinus rhythm Normal ECG When compared with ECG of 07-JUL-2019 14:23, Vent. rate has increased BY ??27 BPM I personally reviewed the tracing and edited the fellows interpretation Confirmed by fellow Natacha Butler ([id number]) on 07/09/2019 1:37:32 PM Confirmed by Malu Lowry ([id number]) on 07/09/2019 8:11:01 PM MUSE SYSTEM 07/09/2019 8:49 AM EST 07/09/2019 8:11 PM EST Sam Kumar TILE PICKER ECG ORDERABLES Performing Organization Address [facility] de Phone Number MUSE SYSTEM * POCT Glucose (07/09/2019 7:46 AM EST) Glucose, POC 95 65 - 199 mg/dL [facility] Comment: Supplemental ranges: <140 mg/dL before meals <180 mg/dL all other times of the day Blood specimen (specimen) 07/09/2019 7:46 AM EST 07/09/2019 7:46 AM EST Jovanni Espinoza Jr., MD POINT OF CARE TE ST ORDERABLES Performing Organization Address [facility] de Phone Number [facility] [place] [address] * POCT Glucose (07/09/2019 4:19 AM EST) Glucose, POC 88 65 - 199 mg/dL [facility] Comment: Supplemental ranges: <140 mg/dL before meals <180 mg/dL all other times of the day Blood specimen (specimen) 07/09/2019 4:19 AM EST 07/09/2019 4:19 AM EST Jovanni Espinoza Jr., MD POINT OF CARE TE ST ORDERABLES Performing Organization Address [facility] Co de Phone [place] [address] * Differential, Automated (07/09/2019 3:37 AM EST) Pathologist [facility] Neutrophil % 51.1 % [facility] Neutrophil Absolute 2.86 1.70 - 6.10 x10(3)/[facility] Lymph % 32.0 % [facility] Lymphocytes Abs 1.8 0.9 - 3.2 x10(3)/[facility] Monocyte % 10.5 % [facility] Monocyte Abs 0.6 0.3 - 0.9 x10(3)/[facility] Eos % 5.0 % [facility] Eosinophils Abs 0.3 0.0 - 0.4 x10(3)/[facility] Basophil % 0.9 % [facility] Baso Absolute 0.0 0.0 - 0.1 x10(3)/[facility] Immature Gran % 0.50 % [facility] Comment: Immature granulocytes(IG's)percentage and absolute count will include metamyelocytes, myelocytes, and promyelocytes. Blood smears from CBCs yielding IG's will be scanned manually for concordance. If this scan disagrees with the automated IG or if promyelocytes are noted, a manual differential will be performed. Immature Gran Absolute 0.03 0.00 - 0.04 x10(3)/[facility] Blood specimen (specimen) 07/09/2019 3:37 AM EST 07/09/2019 3:49 AM EST Narrative Resulting Agency Comment Spec In Lab Sha Field TILE [employer] [address] * (ABNORMAL) Hemogram (07/09/2019 3:37 AM EST) Pathologist [facility] White Blood Cell 5.6 4.0 - 9.5 x10(3)/[facility] Red Blood Cell 4.36(L) 4.58 - 5.54 x10(6)/ L [facility] Hemoglobin 12.3(L) 13.7 - 16.5 gm/dL [facility] Hematocrit 37.1(L) 40.5 - 48.5 % [facility] Mean Cell Volume 85.1 82.9 - 93.1 fL [facility] Mean Cell Hemoglobin 28.2 27.5 - 32.1 pg [facility] Mean Cell Hemoglobin Concentration 33.2 32.0 - 35.7 gm/dL [facility] Platelet 143(L) 145 - 357 x10(3)/[facility] RDW Standard Deviation 41.9 36.0 - 45.0 [facility] RDW coefficient of variation 13.4 11.4 - 13.8 % [facility] Mean Platelet Volume 10.0 7.6 - 12.9 [facility] NRBC% auto 0.0 % [facility] NRBC Absolute 0.000 0.000 - 0.000 x10(3)/[facility] Blood specimen (specimen) 07/09/2019 3:37 AM EST 07/09/2019 3:49 AM EST Narrative Resulting Agency Comment Spec In Lab Sha Field TILE PICKER HEMATOLOGY ORDERABLE S Performing Organization Address City/State/[facility] Co de Phone Number [facility] [place] [address] * Phosphorus (07/09/2019 3:37 AM EST) Phosphorus 4.1 2.5 - 4.5 mg/dL [facility] Blood specimen (specimen) 07/09/2019 3:37 AM EST 07/09/2019 3:49 AM EST Narrative Resulting Agency Comment Spec In Lab Jovanni Espinoza Jr., MD CHEMISTRY ORDERA BLES Performing Organization Address City/[facility]/ZIP Co de Phone Number [facility] [place] [address] * Magnesium (07/09/2019 3:37 AM EST) Magnesium 0.74 0.69 - 1.07 mmol/L [facility] Blood specimen (specimen) 07/09/2019 3:37 AM EST 07/09/2019 3:49 AM EST Narrative Resulting Agency Comment Spec In Lab Jovanni Espinoza Jr., MD CHEMISTRY ORDERA BLES Performing Organization Address [facility] Co de Phone Number [facility] [place] [address] * (ABNORMAL) Basic Metabolic Panel (non-fasting) (07/09/2019 3:37 AM EST) Pathologist [facility] Glucose 109 65 - 199 mg/dL [facility] Comment:Diabetes: >=200 mg/d L plus symptoms Blood Urea Nitrogen 9(L) 10 - 20 mg/dL [facility] Creatinine 0.83 0.80 - 1.50 mg/dL [facility] Sodium 145 135 - 145 mmol/L [facility] Potassium 4.0 3.5 - 5.0 mmol/L [facility] Comment: Please note: ??Patients with WBC >100,000 may have falsely elevated Potassium levels. ??For accurate Potassium quantification in these patients send serum separator tube (gold top) for subsequent determinations. ??Contact the Clinical Chemistry Laboratory if there are any questions. Chloride 108(H) 98 - 107 mmol/L [facility] Carbon Dioxide 25 22 - 31 mmol/L [facility] Anion Gap 12 5 - 15 mmol/L [facility] Calcium 8.6 8.5 - 10.5 mg/dL [facility] Est Glomerular Filtration Rate 111 >=60 mL/min/1. 73 m?? [facility] Comment: The eGFR was calculated using the CKD-EPI equation. As with all creatinine based estimates of kidney function, eGFR values calculated with the CKD-EPI equation are not accurate in patients with acute kidney failure, extremes of body mass or the acutely ill. [email or web address]/DHnkf eGFR 128 >=60 mL/min/1. 73 m?? [facility] Comment: The eGFR was calculated using the CKD-EPI equation. As with all creatinine based estimates of kidney function, eGFR values calculated with the CKD-EPI equation are not accurate in patients with acute kidney failure, extremes of body mass or the acutely ill. [email or web address]/[email or web address] Blood specimen (specimen) 07/09/2019 3:37 AM EST 07/09/2019 3:49 AM EST Narrative Resulting Agency Comment Spec In Lab Sha Field APRN CHEMISTRY ORDERABLES Performing Organization Address [facility]/ZIP Co de Phone Number [facility] [place] [address] * POCT Glucose (07/08/2019 11:55 PM EST) Glucose, POC 91 65 - 199 mg/dL [facility] Comment: Supplemental ranges: <140 mg/dL before meals <180 mg/dL all other times of the day Blood specimen (specimen) 07/08/2019 11:55 PM EST 07/08/2019 11:55 PM EST Jovanni Espinoza Jr., MD POINT OF CARE TE ST ORDERABLES [facility] [place] [address] * POCT Glucose (07/08/2019 8:59 PM EST) Glucose, POC 97 65 - 199 mg/dL [facility] Comment: Supplemental ranges: <140 mg/dL before meals <180 mg/dL all other times of the day Blood specimen (specimen) 07/08/2019 8:59 PM EST 07/08/2019 8:59 PM EST Jovanni Espinoza Jr., MD POINT OF CARE TE ST ORDERABLES Performing Organization Address [facility] de Phone Number [facility] [place] [address] * POCT Glucose (07/08/2019 4:30 PM EST) Glucose, POC 83 65 - 199 mg/dL [facility] Comment: Supplemental ranges: <140 mg/dL before meals <180 mg/dL all other times of the day Blood specimen (specimen) 07/08/2019 4:30 PM EST 07/08/2019 4:30 PM EST Jovanni Espinoza Jr., MD POINT OF CARE TE ST ORDERABLES Performing Organization Address [facility] de Phone Number [facility] [place] [address] * POCT Glucose (07/08/2019 11:46 AM EST) Glucose, POC 91 65 - 199 mg/dL [facility] Comment: Supplemental ranges: <140 mg/dL before meals <180 mg/dL all other times of the day Blood specimen (specimen) 07/08/2019 11:46 AM EST 07/08/2019 11:46 AM EST Jovanni Espinoza Jr., MD POINT OF CARE TE ST ORDERABLES Performing Organization Address [facility] de Phone Number [facility] [place] [address] * Potassium (07/08/2019 11:10 AM EST) Potassium 4.2 3.5 - 5.0 mmol/L [facility] Comment: Please note: ??Patients with WBC >100,000 may have falsely elevated Potassium levels. ??For accurate Potassium quantification in these patients send serum separator tube (gold top) for subsequent determinations. ??Contact the Clinical Chemistry Laboratory if there are any questions. Blood specimen (specimen) 07/08/2019 11:10 AM EST 07/08/2019 11:19 AM EST Narrative Resulting Agency Comment Spec In Lab Jovanni Espinoza Jr., MD CHEMISTRY ORDERA BLES Performing Organization Address City/[facility] Co de Phone Number [facility] [place] [address] * POCT Glucose (07/08/2019 7:36 AM EST) Glucose, POC 109 65 - 199 mg/dL [facility] Comment: Supplemental ranges: <140 mg/dL before meals <180 mg/dL all other times of the day Blood specimen (specimen) 07/08/2019 7:36 AM EST 07/08/2019 7:36 AM EST Jovanni Espinoza Jr., MD POINT OF CARE TE ST ORDERABLES Performing Organization Address [facility] Co de Phone Number [facility] [place] [address] * Differential, Automated (07/08/2019 4:28 AM EST) [facility] Neutrophil % 56.1 % [facility] Neutrophil Absolute 2.72 1.70 - 6.10 x10(3)/[facility] Lymph % 27.6 % [facility] Lymphocytes Abs 1.3 0.9 - 3.2 x10(3)/[facility] Monocyte % 9.5 % [facility] Monocyte Abs 0.5 0.3 - 0.9 x10(3)/[facility] Eos % 5.8 % [facility] Eosinophils Abs 0.3 0.0 - 0.4 x10(3)/[facility] Basophil % 0.6 % [facility] Baso Absolute 0.0 0.0 - 0.1 x10(3)/[facility] Immature Gran % 0.40 % [facility] Comment: Immature granulocytes(IG's)percentage and absolute count will include metamyelocytes, myelocytes, and promyelocytes. Blood smears from CBCs yielding IG's will be scanned manually for concordance. If this scan disagrees with the automated IG or if promyelocytes are noted, a manual differential will be performed. Immature Gran Absolute 0.02 0.00 - 0.04 x10(3)/mcL [facility] Blood specimen (specimen) 07/08/2019 4:28 AM EST 07/08/2019 4:47 AM EST Narrative Resulting Agency Comment Spec In Lab Sha Field TILE PICKER HEMATOLOGY ORDERABLE S [facility] [place] [address] * (ABNORMAL) Hemogram (07/08/2019 4:28 AM EST) White Blood Cell 4.8 4.0 - 9.5 x10(3)/mc L [facility] Red Blood Cell 4.32(L) 4.58 - 5.54 x10(6)/mc L [facility] Hemoglobin 11.9(L) 13.7 - 16.5 gm/dL [facility] Hematocrit 37.1(L) 40.5 - 48.5 % [facility] Mean Cell Volume 85.9 82.9 - 93.1 fL [facility] Mean Cell Hemoglobin 27.5 27.5 - 32.1 pg [facility] Mean Cell Hemoglobin Concentration 32.1 32.0 - 35.7 gm/dL [facility] Platelet 157 145 - 357 x10(3)/mc L [facility] RDW Standard Deviation 41.7 36.0 - 45.0 fL [facility] RDW coefficient of variation 13.2 11.4 - 13.8 % [facility] Mean Platelet Volume 10.1 7.6 - 12.9 fL [facility] NRBC% auto 0.0 % [facility] NRBC Absolute 0.000 0.000 - 0.000 x10(3)/mc L [facility] Blood specimen (specimen) 07/08/2019 4:28 AM EST 07/08/2019 4:47 AM EST Narrative Resulting Agency Comment Spec In Lab Sha Field TILE PICKER HEMATOLOGY ORDERABLE S Performing Organization Address [facility] Co de Phone Number [facility] [place] [address] * Phosphorus (07/08/2019 4:28 AM EST) Phosphorus 3.1 2.5 - 4.5 mg/dL [facility] Blood specimen (specimen) 07/08/2019 4:28 AM EST 07/08/2019 4:47 AM EST Narrative Resulting Agency Comment Spec In Lab Jovanni Espinoza Jr., MD CHEMISTRY ORDERA BLEYudi Performing Organization Address [facility] de Phone Number [facility] [place] [address] * Magnesium (07/08/2019 4:28 AM EST) Magnesium 0.75 0.69 - 1.07 mmol/L [facility] Blood specimen (specimen) 07/08/2019 4:28 AM EST 07/08/2019 4:47 AM EST Narrative Resulting Agency Comment Spec In Lab Jovanni Espinoza Jr., MD CHEMISTRY ORDERA BLES Performing Organization Address [facility] de Phone Number [facility] [place] [address] * (ABNORMAL) Basic Metabolic Panel (non-fasting) (07/08/2019 4:28 AM EST) Glucose 97 65 - 199 mg/dL [facility] Comment:Diabetes: >=200 mg/d L plus symptoms Blood Urea Nitrogen 4(L) 10 - 20 mg/dL [facility] Creatinine 0.77(L) 0.80 - 1.50 mg/dL [facility] Sodium 144 135 - 145 mmol/L [facility] Potassium 3.3(L) 3.5 - 5.0 mmol/L [facility] Comment: Please note: ??Patients with WBC >100,000 may have falsely elevated Potassium levels. ??For accurate Potassium quantification in these patients send serum separator tube (gold top) for subsequent determinations. ??Contact the Clinical Chemistry Laboratory if there are any questions. Chloride 107 98 - 107 mmol/L [facility] Carbon Dioxide 26 22 - 31 mmol/L [facility] Anion Gap 11 5 - 15 mmol/L [facility] Calcium 8.1(L) 8.5 - 10.5 mg/dL [facility] Est Glomerular Filtration Rate 114 >=60 mL/min/1. 73 m?? [facility] Comment: The eGFR was calculated using the CKD-EPI equation. As with all creatinine based estimates of kidney function, eGFR values calculated with the CKD-EPI equation are not accurate in patients with acute kidney failure, extremes of body mass or the acutely ill. [email or web address] eGFR 132 >=60 mL/min/1. 73 m?? [facility] Comment: The eGFR was calculated using the CKD-EPI equation. As with all creatinine based estimates of kidney function, eGFR values calculated with the CKD-EPI equation are not accurate in patients with acute kidney failure, extremes of body mass or the acutely ill. [email or web address] Blood specimen (specimen) 07/08/2019 4:28 AM EST 07/08/2019 4:47 AM EST Narrative Resulting Agency Comment Spec In Lab Sha Field APRN CHEMISTRY ORDERABLES [facility] [place] [address] * POCT Glucose (07/08/2019 4:07 AM EST) Glucose, POC 78 65 - 199 mg/dL [facility] Comment: Supplemental ranges: <140 mg/dL before meals <180 mg/dL all other times of the day Blood specimen (specimen) 07/08/2019 4:07 AM EST 07/08/2019 4:07 AM EST Jovanni Espinoza Jr., MD POINT OF CARE TE ST ORDERABLES Performing Organization Address City/[facility]/ZIP Co de Phone Number [facility] [place] [address] * POCT Glucose (07/08/2019 12:02 AM EST) Glucose, POC 87 65 - 199 mg/dL [facility] Comment: Supplemental ranges: <140 mg/dL before meals <180 mg/dL all other times of the day Blood specimen (specimen) 07/08/2019 12:02 AM EST 07/08/2019 12:02 AM EST Jovanni Espinoza Jr., MD POINT OF CARE TE ST ORDERABLES Performing Organization Address [facility] Co de Phone Number [facility] [place] [address] * POCT Glucose (07/07/2019 7:34 PM EST) Glucose, POC 85 65 - 199 mg/dL [facility] Comment: Supplemental ranges: <140 mg/dL before meals <180 mg/dL all other times of the day Blood specimen (specimen) 07/07/2019 7:34 PM EST 07/07/2019 7:34 PM EST Jovanni Espinoza Jr., MD POINT OF CARE TE ST ORDERABLES Performing Organization Address City/[facility] Co de Phone Number [facility] [place] [address] * POCT Glucose (07/07/2019 4:24 PM EST) Glucose, POC 97 65 - 199 mg/dL [facility] Comment: Supplemental ranges: <140 mg/dL before meals <180 mg/dL all other times of the day Blood specimen (specimen) 07/07/2019 4:24 PM EST 07/07/2019 4:24 PM EST Jovanni Espinoza Jr., MD POINT OF CARE TE ST ORDERABLES Performing Organization Address [facility] Co de Phone Number [facility] [place] [address] * EKG 12 Lead (07/07/2019 2:23 PM EST) Ventricular rate 53 BPM MUSE SYSTEM Atrial Rate 53 BPM MUSE SYSTEM P-R Interval 170 ms MUSE SYSTEM QRS Duration 100 ms MUSE SYSTEM Q-T Interval 456 ms MUSE SYSTEM QTC Calculated (Bezet) 427 ms MUSE SYSTEM Calculated P [place] -5 degrees MUSE SYSTEM Calculated R [place] -2 degrees MUSE SYSTEM Calculated T [place] -13 degrees MUSE SYSTEM INTERPRETATION Sinus bradycardia Otherwise normal ECG When compared with ECG of 06-JUL-2019 00:12, (unconfirmed) Inverted T waves have replaced nonspecific T wave abnormality in Inferior leads Confirmed by MD Andres, Gutierrez ([id number]) on 07/07/2019 3:43:58 PM MUSE SYSTEM 07/07/2019 2:23 PM EST 07/07/2019 3:43 PM EST Jovanni Espinoza Jr., MD ECG ORDERABLES Performing Organization Address [facility] Co de Phone Number MUSE SYSTEM * TSH (07/07/2019 1:00 PM EST) Thyroid Stimulating Hormone 2.66 0.27 - 4.20 mcIU/mL [facility] Blood specimen (specimen) 07/07/2019 1:00 PM EST 07/07/2019 1:30 PM EST Narrative Resulting Agency Comment Spec In Lab Jovanni Espinoza Jr., MD CHEMISTRY ORDERA BLES Performing Organization Address City/[facility]/ZIP Co de Phone Number [facility] [place] [address] * POCT Glucose (07/07/2019 12:14 PM EST) Glucose, POC 80 65 - 199 mg/dL [facility] Comment: Supplemental ranges: <140 mg/dL before meals <180 mg/dL all other times of the day Blood specimen (specimen) 07/07/2019 12:14 PM EST 07/07/2019 12:14 PM EST Jovanni Espinoza Jr., MD POINT OF CARE TE ST ORDERABLES [facility] [place] [address] * XR Chest for Verifying Vascular Access PICC Placement At Bedside (07/07/2019 11:26 AM EST) Anatomical Region Laterality Modality Digital Radiogra phy Impressions 07/07/2019 11:59 AM EST 1. ??New right PICC with tip at cavoatrial junction. 2. ??Unchanged bibasilar opacities consistent with some combination of atelectasis, pneumonia and aspiration.. I have personally reviewed the image(s) and the residents interpretation and agree with the findings, Ernie Denise at 07/07/2019 11:59 AM Thank you for letting us participate in the care of this patient. For questions regarding this report, please contact the number below. ? Narrative 07/07/2019 11:59 AM EST EXAMINATION: XR CHEST FOR VERIFYING VASCULAR ACCESS PICC PLACEMENT AT BEDSIDE CLINICAL HISTORY: verify PICC placement TECHNIQUE: Single AP portable view of the chest. COMPARISON: 07/05/2019 FINDINGS: Interval placement of right PICC with catheter tip at the cavoatrial junction. Endotracheal tube with tip 4.5 cm above the jv. Enteric tube is seen along course of the esophagus and into the stomach with tip outside the [id number]. Similar appearance of patchy opacities. No pleural effusion or pneumothorax. Stable cardiomediastinal silhouette. No interval osseous changes. Procedure Note Ernie Denise MD - 07/07/2019 EXAMINATION: XR CHEST FOR VERIFYING VASCULAR ACCESS PICC PLACEMENT ATBEDSIDE CLINICAL HISTORY: verify PICC placement TECHNIQUE: Single AP portable view of the chest. COMPARISON: 07/05/2019 FINDINGS: Interval placement of right PICC with catheter tip at the cavoatrialjunction. Endotracheal tube with tip 4.5 cm above the jv. Enteric tube is seenalong course of the esophagus and into the stomach with tip outside [id number]. Similar appearance of patchy opacities. No pleural effusion orpneumothorax. Stable cardiomediastinal silhouette. No interval osseous changes. IMPRESSION 1. New right PICC with tip at cavoatrial junction. 2. Unchanged bibasilar opacities consistent with some combination of atelectasis, pneumonia and aspiration.. I have personally reviewed the image(s) and the residents interpretationand agree with the findings, Ernie Denise at 07/07/2019 11:59 AM Thank you for letting us participate in the care of this patient. Forquestions regarding this report, please contact the number below. Sha Field APRN IMG DX ORDERABLES * Place BEDSIDE PICC Line: Contact Vascular Access Page [phone] Is PICC procedure required PRIOR to patients discharge? Yes (07/07/2019 10:54 AM EST) Narrative Quique Regan, ROBBIN - 07/07/2019 10:54 AM EST Quique Regan, ROBBIN ? 07/07/2019 11:50 AM PICC/Midline Insertion Procedure Note Indications: Anti-infective, Access and Medication Administration This insertion was not to replace a malfunctioning catheter. This insertion was not due to a suspected line-associated infection. Location of Procedure: ICU [address] [place] [address] Risks and Benefits: Medical necessity order placed ,unable to obtain consent, family not available Time Out: Prior to the start of the procedure, the patient's identity, intended procedure, site/side, correct patient positioning and presence of the site basil was confirmed as applicable. The medical history and chart were reviewed to rule out potential contraindications to the planned procedure. Hand Hygiene: The aluminum hydroxide process operator did perform hand hygiene prior to line insertion. Catheter type: PICC Lot number: [id number] Procedure Technique: Skin was prepped with chlorhexidine. Skin preparation agent was completely dry at the time of first skin puncture. The following barrier precaution methods were used:large sterile drape, maske/eye shield, large sterile gown, sterile gloves and cap. 2 ml of 1% Lidocaine was used for skin wheal. Ultrasound was used for guidance. ??Radiographic contrast agent was not injected for vein identification. Procedure Details: Order received for catheter placement. A 5 Fr. double lumen Bard Power catheter was placed into the right basilic vein over a 0.018 inch guidewire using modified seldinger technique and fluoroscopy. Arm circumference was 32 cm at 2 cm above the insertion site. Final catheter length (with trimming): 39 cm Internal: 39 cm External: 0 cm Tip in SVC per DR DENISE. The line was not placed over a guidewire. Post Procedure: Diagnosis: RES. FAILURE Blood return noted on aspiration of line after placement confirmed. 5 mls of normal saline infused free flowing to gravity via PICC after insertion. Sterile dressing applied: CHG Impregnated Tegaderm. Findings: The patient did tolerate the procedure well. No Complications. Procedure Comments: QUIQUE REGAN RN 07/07/2019 Sha Field APRN PROCEDURE/MINOR SURG ICAL ORDERABLES * POCT Glucose (07/07/2019 8:06 AM EST) Glucose, POC 109 65 - 199 mg/dL [facility] Comment: Supplemental ranges: <140 mg/dL before meals <180 mg/dL all other times of the day Blood specimen (specimen) 07/07/2019 8:06 AM EST 07/07/2019 8:06 AM EST Jovanni Espinoza Jr., MD POINT OF CARE TE ST ORDERABLES [facility] [place] [address] * POCT Glucose (07/07/2019 4:23 AM EST) Glucose, POC 77 65 - 199 mg/dL [facility] Comment: Supplemental ranges: <140 mg/dL before meals <180 mg/dL all other times of the day Blood specimen (specimen) 07/07/2019 4:23 AM EST 07/07/2019 4:23 AM EST Jovanni Espinoza Jr., MD POINT OF CARE TE ST ORDERABLES Performing Organization Address [facility] Co de Phone Number [facility] [place] [address] * Phosphorus (07/07/2019 4:19 AM EST) Phosphorus 3.3 2.5 - 4.5 mg/dL [facility] Blood specimen (specimen) Venous Draw / Unknown 07/07/2019 4:19 AM EST 07/07/2019 4:26 AM EST Narrative Resulting Agency Comment Spec In Lab Nancy OCHOA CHEMISTRY ORDERABLE S Performing Organization Address [facility] Co de Phone Number [facility] [place] [address] * Magnesium (07/07/2019 4:19 AM EST) Magnesium 0.69 0.69 - 1.07 mmol/L [facility] Blood specimen (specimen) Venous Draw / Unknown 07/07/2019 4:19 AM EST 07/07/2019 4:26 AM EST Narrative Resulting Agency Comment Spec In Lab Nancy Jacobs PA CHEMISTRY ORDERABLE S Performing Organization Address City/[facility]/ZIP Co de Phone Number [facility] [place] [address] * Differential, Automated (07/07/2019 4:19 AM EST) Pathologist [facility] Neutrophil % 48.9 % [facility] Neutrophil Absolute 2.68 1.70 - 6.10 x10(3)/[facility] Lymph % 36.9 % [facility] Lymphocytes Abs 2.0 0.9 - 3.2 x10(3)/[facility] Monocyte % 7.8 % [facility] Monocyte Abs 0.4 0.3 - 0.9 x10(3)/[facility] Eos % 5.1 % [facility] Eosinophils Abs 0.3 0.0 - 0.4 x10(3)/[facility] Basophil % 1.1 % [facility] Baso Absolute 0.1 0.0 - 0.1 x10(3)/[facility] Immature Gran % 0.20 % [facility] Comment: Immature granulocytes(IG's)percentage and absolute count will include metamyelocytes, myelocytes, and promyelocytes. Blood smears from CBCs yielding IG's will be scanned manually for concordance. If this scan disagrees with the automated IG or if promyelocytes are noted, a manual differential will be performed. Immature Gran Absolute 0.01 0.00 - 0.04 x10(3)/[facility] Blood specimen (specimen) 07/07/2019 4:19 AM EST 07/07/2019 4:24 AM EST Narrative Resulting Agency Comment Spec In Lab Sha Field TILE PICKER HEMATOLOGY ORDERABLE S [facility] [place] [address] * (ABNORMAL) Hemogram (07/07/2019 4:19 AM EST) Pathologist [facility] White Blood Cell 5.5 4.0 - 9.5 x10(3)/[facility] Red Blood Cell 4.32(L) 4.58 - 5.54 x10(6)/mc L [facility] Hemoglobin 12.0(L) 13.7 - 16.5 gm/dL [facility] Hematocrit 37.3(L) 40.5 - 48.5 % [facility] Mean Cell Volume 86.3 82.9 - 93.1 fL [facility] Mean Cell Hemoglobin 27.8 27.5 - 32.1 pg [facility] Mean Cell Hemoglobin Concentration 32.2 32.0 - 35.7 gm/dL [facility] Platelet 161 145 - 357 x10(3)/mc L [facility] RDW Standard Deviation 41.9 36.0 - 45.0 [facility] RDW coefficient of variation 13.3 11.4 - 13.8 % [facility] Mean Platelet Volume 9.6 7.6 - 12.9 [facility] NRBC% auto 0.0 % [facility] NRBC Absolute 0.000 0.000 - 0.000 x10(3)/mc L [facility] Blood specimen (specimen) 07/07/2019 4:19 AM EST 07/07/2019 4:24 AM EST Narrative Resulting Agency Comment Spec In Lab Sha Field TILE PICKER HEMATOLOGY ORDERABLE S Performing Organization Address City/State/[facility] Co de Phone Number [facility] [place] [address] * (ABNORMAL) Basic Metabolic Panel (non-fasting) (07/07/2019 4:19 AM EST) Glucose 84 65 - 199 mg/dL [facility] Comment:Diabetes: >=200 mg/d L plus symptoms Blood Urea Nitrogen 3(L) 10 - 20 mg/dL [facility] Creatinine 1.00 0.80 - 1.50 mg/dL [facility] Sodium 145 135 - 145 mmol/L [facility] Potassium 3.7 3.5 - 5.0 mmol/L [facility] Comment: Please note: ??Patients with WBC >100,000 may have falsely elevated Potassium levels. ??For accurate Potassium quantification in these patients send serum separator tube (gold top) for subsequent determinations. ??Contact the Clinical Chemistry Laboratory if there are any questions. Chloride 110(H) 98 - 107 mmol/L [facility] Carbon Dioxide 23 22 - 31 mmol/L [facility] Anion Gap 12 5 - 15 mmol/L [facility] Calcium 8.3(L) 8.5 - 10.5 mg/dL [facility] Est Glomerular Filtration Rate 94 >=60 mL/min/1. 73 m?? [facility] Comment: The eGFR was calculated using the CKD-EPI equation. As with all creatinine based estimates of kidney function, eGFR values calculated with the CKD-EPI equation are not accurate in patients with acute kidney failure, extremes of body mass or the acutely ill. [email or web address] NORMANnkf eGFR 109 >=60 mL/min/1. 73 m?? [facility] Comment: The eGFR was calculated using the CKD-EPI equation. As with all creatinine based estimates of kidney function, eGFR values calculated with the CKD-EPI equation are not accurate in patients with acute kidney failure, extremes of body mass or the acutely ill. [email or web address] Blood specimen (specimen) 07/07/2019 4:19 AM EST 07/07/2019 4:24 AM EST Narrative Resulting Agency Comment Spec In Lab Sha Field APRN CHEMISTRY ORDERABLES [facility] [place] [address] * Triglyceride (07/07/2019 4:19 AM EST) Triglyceride 133 mg/dL [facility] Comment: Average Risk/Lower Risk: <150 mg/dL Borderline High Risk: 150-199 mg/dL High Risk: 200-499 mg/dL Very High Risk: >nz=012 mg/dL Blood specimen (specimen) 07/07/2019 4:19 AM EST 07/07/2019 4:24 AM EST Narrative Resulting Agency Comment Spec In Lab Sha Field TILE PICKER CHEMISTRY ORDERABLES Performing Organization Address [facility] Co de Phone Number [facility] [place] [address] * POCT Glucose (07/07/2019 12:47 AM EST) Glucose, POC 76 65 - 199 mg/dL [facility] Comment: Supplemental ranges: <140 mg/dL before meals <180 mg/dL all other times of the day Blood specimen (specimen) 07/07/2019 12:47 AM EST 07/07/2019 12:47 AM EST Jovanni Espinoza Jr., MD POINT OF CARE TE ST ORDERABLES Performing Organization Address [facility] Co de Phone Number [facility] [place] [address] * POCT Glucose (07/06/2019 8:18 PM EST) Glucose, POC 74 65 - 199 mg/dL [facility] Comment: Supplemental ranges: <140 mg/dL before meals <180 mg/dL all other times of the day Blood specimen (specimen) 07/06/2019 8:18 PM EST 07/06/2019 8:18 PM EST Jovanni Espinoza Jr., MD POINT OF CARE TE ST ORDERABLES Performing Organization Address [facility] Co de Phone Number [facility] [place] [address] * POCT Glucose (07/06/2019 6:16 PM EST) Glucose, POC 75 65 - 199 mg/dL [facility] Comment: Supplemental ranges: <140 mg/dL before meals <180 mg/dL all other times of the day Blood specimen (specimen) 07/06/2019 6:16 PM EST 07/06/2019 6:16 PM EST Jovanni Espinoza Jr., MD POINT OF CARE TE ST ORDERABLES Performing Organization Address City/[facility] Co de Phone Number [facility] [place] [address] * POCT Glucose (07/06/2019 4:05 PM EST) Glucose, POC 65 65 - 199 mg/dL [facility] Comment: Supplemental ranges: <140 mg/dL before meals <180 mg/dL all other times of the day Blood specimen (specimen) 07/06/2019 4:05 PM EST 07/06/2019 4:05 PM EST Razia Dubose MD POINT OF CARE TEST O RDERABLES Performing Organization Address [facility] Co de Phone Number [facility] [place] [address] * POCT Glucose (07/06/2019 12:25 PM EST) Glucose, POC 76 65 - 199 mg/dL [facility] Comment: Supplemental ranges: <140 mg/dL before meals <180 mg/dL all other times of the day Blood specimen (specimen) 07/06/2019 12:25 PM EST 07/06/2019 12:25 PM EST Razia Dubose MD POINT OF CARE TEST O RDERABLES Performing Organization Address [facility] Co de Phone Number [facility] [place] [address] * POCT Glucose (07/06/2019 8:18 AM EST) Glucose, POC 79 65 - 199 mg/dL [facility] Comment: Supplemental ranges: <140 mg/dL before meals <180 mg/dL all other times of the day Blood specimen (specimen) 07/06/2019 8:18 AM EST 07/06/2019 8:18 AM EST Razia Dubose MD POINT OF CARE TEST O RDERAMICHELLE Performing Organization Address [facility] de Phone Number [facility] [place] [address] * (ABNORMAL) POCT Glucose (07/06/2019 7:28 AM EST) Glucose, POC 64(L) 65 - 199 mg/dL [facility] Comment: Supplemental ranges: <140 mg/dL before meals <180 mg/dL all other times of the day Blood specimen (specimen) 07/06/2019 7:28 AM EST 07/06/2019 7:28 AM EST Razia Dubose MD POINT OF CARE TEST O RDERAMICHELLE Performing Organization Address [facility] Phone Number [facility] [place] [address] * POCT Glucose (07/06/2019 3:32 AM EST) Glucose, POC 79 65 - 199 mg/dL [facility] Comment: Supplemental ranges: <140 mg/dL before meals <180 mg/dL all other times of the day Blood specimen (specimen) 07/06/2019 3:32 AM EST 07/06/2019 3:32 AM EST Razia Dubose MD POINT OF CARE TEST O RDERAMICHELLE Performing Organization Address [facility] Co de Phone Number [facility] [place] [address] * Differential, Automated (07/06/2019 3:29 AM EST) Neutrophil % 43.5 % [facility] Neutrophil Absolute 3.08 1.70 - 6.10 x10(3)/[facility] Lymph % 44.6 % [facility] Lymphocytes Abs 3.2 0.9 - 3.2 x10(3)/[facility] Monocyte % 8.2 % [facility] Monocyte Abs 0.6 0.3 - 0.9 x10(3)/[facility] Eos % 2.7 % [facility] Eosinophils Abs 0.2 0.0 - 0.4 x10(3)/[facility] Basophil % 0.7 % [facility] Baso Absolute 0.0 0.0 - 0.1 x10(3)/[facility] Immature Gran % 0.30 % [facility] Comment: Immature granulocytes(IG's)percentage and absolute count will include metamyelocytes, myelocytes, and promyelocytes. Blood smears from CBCs yielding IG's will be scanned manually for concordance. If this scan disagrees with the automated IG or if promyelocytes are noted, a manual differential will be performed. Immature Gran Absolute 0.02 0.00 - 0.04 x10(3)/[facility] Blood specimen (specimen) 07/06/2019 3:29 AM EST 07/06/2019 3:36 AM EST Narrative Resulting Agency Comment Spec In Lab Sha Field APRN HEMATOLOGY ORDERABLE S [facility] [place] [address] * (ABNORMAL) Hemogram (07/06/2019 3:29 AM EST) White Blood Cell 7.1 4.0 - 9.5 x10(3)/mc L [facility] Red Blood Cell 4.57(L) 4.58 - 5.54 x10(6)/mc L [facility] Hemoglobin 13.1(L) 13.7 - 16.5 gm/dL [facility] Hematocrit 39.5(L) 40.5 - 48.5 % [facility] Mean Cell Volume 86.4 82.9 - 93.1 fL [facility] Mean Cell Hemoglobin 28.7 27.5 - 32.1 pg [facility] Mean Cell Hemoglobin Concentration 33.2 32.0 - 35.7 gm/dL [facility] [facility] Platelet 158 145 - 357 x10(3)/mc L [facility] RDW Standard Deviation 43.0 36.0 - 45.0 fL [facility] RDW coefficient of variation 13.5 11.4 - 13.8 % [facility] Mean Platelet Volume 9.9 7.6 - 12.9 fL [facility] NRBC% auto 0.0 % [facility] NRBC Absolute 0.000 0.000 - 0.000 x10(3)/mc L [facility] Blood specimen (specimen) 07/06/2019 3:29 AM EST 07/06/2019 3:36 AM EST Narrative Resulting Agency Comment Spec In Lab Sha Field TILE PICKER HEMATOLOGY ORDERABLE S [facility] [place] [address] * (ABNORMAL) Basic Metabolic Panel (non-fasting) (07/06/2019 3:29 AM EST) Glucose 87 65 - 199 mg/dL [facility] Comment:Diabetes: >=200 mg/d L plus symptoms Blood Urea Nitrogen 4(L) 10 - 20 mg/dL [facility] Creatinine 0.87 0.80 - 1.50 mg/dL [facility] Sodium 148(H) 135 - 145 mmol/L [facility] Potassium 3.7 3.5 - 5.0 mmol/L [facility] Comment: Please note: ??Patients with WBC >100,000 may have falsely elevated Potassium levels. ??For accurate Potassium quantification in these patients send serum separator tube (gold top) for subsequent determinations. ??Contact the Clinical Chemistry Laboratory if there are any questions. Chloride 112(H) 98 - 107 mmol/L [facility] Carbon Dioxide 23 22 - 31 mmol/L [facility] Anion Gap 13 5 - 15 mmol/L [facility] Calcium 8.4(L) 8.5 - 10.5 mg/dL [facility] Est Glomerular Filtration Rate 109 >=60 mL/min/1. 73 m?? [facility] Comment: The eGFR was calculated using the CKD-EPI equation. As with all creatinine based estimates of kidney function, eGFR values calculated with the CKD-EPI equation are not accurate in patients with acute kidney failure, extremes of body mass or the acutely ill. [email or web address] eGFR 126 >=60 mL/min/1. 73 m?? [facility] Comment: The eGFR was calculated using the CKD-EPI equation. As with all creatinine based estimates of kidney function, eGFR values calculated with the CKD-EPI equation are not accurate in patients with acute kidney failure, extremes of body mass or the acutely ill. [email or web address] Blood specimen (specimen) 07/06/2019 3:29 AM EST 07/06/2019 3:36 AM EST Narrative Resulting Agency Comment Spec In Lab Sha Field APRN CHEMISTRY ORDERABLES [facility] [place] [address] * POCT Glucose (07/06/2019 12:21 AM EST) Glucose, POC 87 65 - 199 mg/dL [facility] Comment: Supplemental ranges: <140 mg/dL before meals <180 mg/dL all other times of the day Blood specimen (specimen) 07/06/2019 12:21 AM EST 07/06/2019 12:21 AM EST Razia Dubose MD POINT OF CARE TEST O RDERABLES [facility] [place] [address] * EKG 12 Lead (07/06/2019 12:12 AM EST) Ventricular rate 64 BPM MUSE SYSTEM Atrial Rate 64 BPM MUSE SYSTEM P-R Interval 180 ms MUSE SYSTEM QRS Duration 102 ms MUSE SYSTEM Q-T Interval 440 ms MUSE SYSTEM QTC Calculated (Bezet) 453 ms MUSE SYSTEM Calculated P [place] 44 degrees MUSE SYSTEM Calculated R [place] 24 degrees MUSE SYSTEM Calculated T [place] 39 degrees MUSE SYSTEM INTERPRETATION Normal sinus rhythm Normal ECG When compared with ECG of 09-DEC-2011 23:16, QT has lengthened Confirmed by MD Jr, Juan Grceo ([id number]) on 07/07/2019 7:24:29 PM MUSE SYSTEM 07/06/2019 12:1 2 AM EST 07/07/2019 7:24 PM EST Sha Field TILE PICKER ECG ORDERABLES MUSE SYSTEM * (ABNORMAL) BLOOD GAS 2 VENOUS (07/05/2019 10:07 PM EST) pH, Venous 7.34 7.32 - 7.42 [facility] PCO2, Venous 39(L) 41 - 51 mmHg [facility] PO2, Venous 42(H) 25 - 40 mmHg [facility] Bicarbonate, Venous 20.6 mmol/L [facility] Base Excess, Venous -5.2 mmol/L [facility] Hgb Blood Gas 13.7 13.7 - 16.5 gm/dL [facility] Oxyhemoglobin, Venous 76.0 % [facility] Carboxyhemoglob in, Venous 0.7 % [facility] Comment: Nonsmokers: 0.5-1.5% COHB Smokers: Variable, but usually less than 10% Toxic: 20-30% COHB Lethal: Greater than 60% COHB Methemoglobin, Venous 0.7 <=1.5 % [facility] Na Whole Blood 144 135 - 145 mmol/L [facility] K Whole Blood 4.2 3.5 - 5.0 mmol/L [facility] Comment: Please note: Patients with WBC >100,000 may have falsely elevated Potassium levels. Contact the Clinical Chemistry Laboratory if there are any questions. ICa Whole Blood 1.19 1.15 - 1.33 mmol/L [facility] Comment: Note: ??Total bilirubin higher than 20 mg/dL may lead to falsely low ionized calcium. CL Whole Blood 111(H) 98 - 107 mmol/L [facility] Gluc Whole Bld 89 65 - 199 mg/dL [facility] Comment:Diabetes: >=200 mg/d L plus symptoms Lactate WB 1.0 0.5 - 2.2 mmol/L [facility] Fraction of Inspired Oxygen, Venous 30 % [facility] Blood Gas Source Venous [facility] Blood specimen (specimen) 07/05/2019 10:07 PM EST 07/05/2019 10:07 PM EST Razia Dubose MD POINT OF CARE TEST O TERESSA Performing Organization Address [facility] Co de Phone Number [facility] [place] [address] * POCT Glucose (07/05/2019 10:04 PM EST) Glucose, POC 90 65 - 199 mg/dL [facility] Comment: Supplemental ranges: <140 mg/dL before meals <180 mg/dL all other times of the day Blood specimen (specimen) 07/05/2019 10:04 PM EST 07/05/2019 10:04 PM EST Razia Dubose MD POINT OF CARE TEST O RDERAMICHELLE Performing Organization Address City/[facility] Co de Phone Number [facility] [place] [address] * (ABNORMAL) Urinalysis with reflex Culture (07/05/2019 9:17 PM EST) Glucose, Urine Dipstick Negative Negative mg/dL [facility] Protein, Urine Dipstick Negative Negative mg/dL [facility] Bilirubin, Urine Dipstick Negative Negative mg/dL [facility] Comment: Clinical correlation required for positive Urine Bilirubin results as false positive may occur with some drugs and drug related products. If a false positive is suspected a serum total bilirubin should be considered if clinically indicated. Urobilinogen, Urine Dipstick Normal Normal mg/dL [facility] pH, Urn (dipstick) 5.5 5.0 - 8.0 [facility] Blood, Urine Dipstick Negative Negative mg/dL [facility] Ketone, Urine Dipstick 15(A) Negative mg/dL [facility] Nitrite, Urine Dipstick Negative Negative [facility] Leukocytes, Urine Dipstick Negative Negative [facility] Appearance, Urine Dipstick Clear Clear [facility] Specific [place] Urine Automated 1.018 1.002 - 1.030 [facility] Color, Urine Dipstick Yellow Yellow [facility] Reflex to Culture No [facility] Urine specimen obtained via indwelling urinary catheter (specimen) 07/05/2019 9:17 PM EST 07/05/2019 9:33 PM EST Narrative Resulting Agency Comment Spec In Lab Sha Field APRN URINE ORDERABLES Performing Organization Address [facility] Co de Phone Number [facility] [place] [address] * Blood culture (07/05/2019 9:00 PM EST) Blood Culture No growth at 5 days. [facility] Blood specimen (specimen) 07/05/2019 9:00 PM EST 07/05/2019 9:45 PM EST Comment:PERIPHERAL Narrative Resulting Agency Comment Spec In Lab Sha Field APRN MICROBIOLOGY - BLOOD ORDERABLES Performing Organization Address City/[facility]/ZIP Co de Phone Number [facility] [place] [address] * ABORH Recheck Status (07/05/2019 8:40 PM EST) ABORH Recheck Order Order Placed [facility] ABORH Type Recheck Complete [facility] Blood specimen (specimen) 07/05/2019 8:40 PM EST 07/05/2019 9:18 PM EST Narrative Resulting Agency Comment Spec In Lab Sha Field APRN BLOOD BANK LAB ORDER MERYL [facility] [place] [address] * Antibody screen (07/05/2019 8:40 PM EST) Pathologist [facility] Ab Screen Interp Negative [facility] Expires at [id number] on: 07/08/2019 [facility] Blood specimen (specimen) 07/05/2019 8:40 PM EST 07/05/2019 9:18 PM EST Narrative Resulting Agency Comment Spec In Lab Sha Hoangy TILE PICKER BLOOD BANK LAB ORDER MERYL Performing Organization Address City/[facility]/ZIP Co de Phone Number [facility] [place] [address] * ABO/Rh Typing (07/05/2019 8:40 PM EST) ABORH Type O Pos [facility] Blood specimen (specimen) 07/05/2019 8:40 PM EST 07/05/2019 9:18 PM EST Narrative Resulting Agency Comment Spec In Lab Sha Field APRN BLOOD BANK LAB ORDER MERYL Performing Organization Address City/[facility]/ZIP Co de Phone Number [facility] [place] [address] * Differential, Automated (07/05/2019 8:40 PM EST) Neutrophil % 67.9 % [facility] Neutrophil Absolute 4.35 1.70 - 6.10 x10(3)/[facility] Lymph % 22.8 % [facility] Lymphocytes Abs 1.5 0.9 - 3.2 x10(3)/[facility] Monocyte % 6.6 % [facility] Monocyte Abs 0.4 0.3 - 0.9 x10(3)/[facility] Eos % 1.6 % [facility] Eosinophils Abs 0.1 0.0 - 0.4 x10(3)/[facility] Basophil % 0.5 % [facility] Baso Absolute 0.0 0.0 - 0.1 x10(3)/[facility] Immature Gran % 0.60 % [facility] Comment: Immature granulocytes(IG's)percentage and absolute count will include metamyelocytes, myelocytes, and promyelocytes. Blood smears from CBCs yielding IG's will be scanned manually for concordance. If this scan disagrees with the automated IG or if promyelocytes are noted, a manual differential will be performed. Immature Gran Absolute 0.04 0.00 - 0.04 x10(3)/[facility] Blood specimen (specimen) 07/05/2019 8:40 PM EST 07/05/2019 9:17 PM EST Narrative Resulting Agency Comment Spec In Lab Sha Field APRN HEMATOLOGY ORDERABLE S [facility] [place] [address] * (ABNORMAL) Hemogram (07/05/2019 8:40 PM EST) White Blood Cell 6.4 4.0 - 9.5 x10(3)/ L [facility] Red Blood Cell 3.98(L) 4.58 - 5.54 x10(6)/ L [facility] Hemoglobin 11.3(L) 13.7 - 16.5 gm/dL [facility] Hematocrit 34.8(L) 40.5 - 48.5 % [facility] Mean Cell Volume 87.4 82.9 - 93.1 fL [facility] Mean Cell Hemoglobin 28.4 27.5 - 32.1 pg [facility] Mean Cell Hemoglobin Concentration 32.5 32.0 - 35.7 gm/dL [facility] Platelet 165 145 - 357 x10(3)/mc L [facility] RDW Standard Deviation 42.9 36.0 - 45.0 [facility] RDW coefficient of variation 13.4 11.4 - 13.8 % [facility] Mean Platelet Volume 10.0 7.6 - 12.9 [facility] NRBC% auto 0.0 % [facility] NRBC Absolute 0.000 0.000 - 0.000 x10(3)/mc L [facility] Blood specimen (specimen) 07/05/2019 8:40 PM EST 07/05/2019 9:17 PM EST Narrative Resulting Agency Comment Spec In Lab Sha Field APRN HEMATOLOGY ORDERABLE S Performing Organization Address [facility] Co de Phone Number [facility] [place] [address] * Blood culture (07/05/2019 8:40 PM EST) Pathologist [facility] Blood Culture No growth at 5 days. [facility] Blood specimen (specimen) 07/05/2019 8:40 PM EST 07/05/2019 9:45 PM EST Comment:PERIPHERAL Narrative Resulting Agency Comment Spec In Lab Sha Field APRN MICROBIOLOGY - BLOOD ORDERABLES Performing Organization Address [facility]/ZIP Co de Phone Number [facility] [place] [address] * (ABNORMAL) CMP w/fasting Glucose (07/05/2019 8:40 PM EST) Glucose Fasting 90 65 - 99 mg/dL [facility] Comment: ?Fasting* Glucose Interpretive Criteria Normal [...] of Diabetes Mellitus, Position Statement from the [employer]. ??Diabetes Care, Volume 33, Supplement 1, Sep 2009 Blood Urea Nitrogen 4(L) 10 - 20 mg/dL [facility] Creatinine 1.07 0.80 - 1.50 mg/dL [facility] Sodium 147(H) 135 - 145 mmol/L [facility] Potassium 4.0 3.5 - 5.0 mmol/L [facility] Comment: Please note: ??Patients with WBC >100,000 may have falsely elevated Potassium levels. ??For accurate Potassium quantification in these patients send serum separator tube (gold top) for subsequent determinations. ??Contact the Clinical Chemistry Laboratory if there are any questions. Chloride 114(H) 98 - 107 mmol/L [facility] Carbon Dioxide 22 22 - 31 mmol/L [facility] Anion Gap 11 5 - 15 mmol/L [facility] Calcium 8.1(L) 8.5 - 10.5 mg/dL [facility] Protein, Total 5.5(L) 6.1 - 8.0 gm/dL [facility] Albumin 3.0(L) 3.2 - 5.2 gm/dL [facility] Aspartate Aminotransferase 27 0 - 39 unit/L [facility] Alanine Aminotransferase 10 0 - 55 unit/L [facility] Alkaline Phosphatase 50 40 - 130 unit/L [facility] Bilirubin, Total 0.2 0.2 - 1.3 mg/dL [facility] Est Glomerular Filtration Rate 87 >=60 mL/min/1. 73 m?? [facility] Comment: The eGFR was calculated using the CKD-EPI equation. As with all creatinine based estimates of kidney function, eGFR values calculated with the CKD-EPI equation are not accurate in patients with acute kidney failure, extremes of body mass or the acutely ill. [email or web address]MANnkf eGFR 101 >=60 mL/min/1. 73 m?? [facility] Comment: The eGFR was calculated using the CKD-EPI equation. As with all creatinine based estimates of kidney function, eGFR values calculated with the CKD-EPI equation are not accurate in patients with acute kidney failure, extremes of body mass or the acutely ill. [email or web address]MANnkf Blood specimen (specimen) 07/05/2019 8:40 PM EST 07/05/2019 9:18 PM EST Narrative Resulting Agency Comment Spec In Lab Sha Field APRN CHEMISTRY ORDERABLES [facility] [place] [address] * (ABNORMAL) Prothrombin Time (07/05/2019 8:40 PM EST) Prothrombin Time 12.9(H) 9.4 - 12.5 sec [facility] International Normalization Ratio 1.1 [facility] Comment: An INR <2.0 indicates adequate procoagulant activity for hemostasis in most patients without underlying bleeding disorders, though the INR may not adequately reflect hemostatic capacity in patients with liver disease and synthetic impairment. The recommended target INR range for therapeutic anticoagulation is 2.0 ? 3.0 for most applications, though lower and higher ranges may be appropriate depending on clinical circumstances. Blood specimen (specimen) 07/05/2019 8:40 PM EST 07/05/2019 9:17 PM EST Narrative Resulting Agency Comment Spec In Lab Sha Field TILE PICKER HEMATOLOGY ORDERABLE S Performing Organization Address [facility] Co de Phone Number [facility] [place] [address] * APTT (07/05/2019 8:40 PM EST) Partial Thromboplastin Time 28 25 - 37 sec [facility] Comment: The PTT is NOT appropriate for heparin monitoring. Use the Anti-Xa level for heparin monitoring (HEP UFH) or LMWH monitoring (HEP LMW). A PTT less than 37 seconds generally indicates adequate hemostasis. Blood specimen (specimen) 07/05/2019 8:40 PM EST 07/05/2019 9:17 PM EST Narrative Resulting Agency Comment Spec In Lab Sha Field APRN HEMATOLOGY ORDERABLE S Performing Organization Address [facility] Co de Phone Number [facility] [place] [address] * XR Chest One View (07/05/2019 7:56 PM EST) Anatomical Region Laterality Modality Chest N/A Digital Radiogra phy Impressions 07/05/2019 8:16 PM EST Endotracheal tube in satisfactory position. Nasogastric tube should be advanced 5 cm. Multifocal right lung pneumonia. Aspiration not excluded. Thank you for letting us participate in the care of this patient. For questions regarding this report, please contact the number below. ? Narrative 07/05/2019 8:16 PM EST EXAMINATION: XR CHEST ONE VIEW CLINICAL HISTORY: s/p intubation and transfer from OSH TECHNIQUE: 1 view of the chest COMPARISON: July 05, 2019 at 1115 hours FINDINGS: Endotracheal tube in satisfactory position 5 cm proximal to the jv. Tip of nasogastric tube in the left upper quadrant. The port is projected the expected region of the gastroesophageal junction that should be advanced at least 5 cm. Patchy right lung parenchymal opacities. No pleural effusion. No pneumothorax. No rib fractures. Procedure Note Jessica Chavez MD - 07/05/2019 EXAMINATION: XR CHEST ONE VIEW CLINICAL HISTORY: s/p intubation and transfer from OSH TECHNIQUE: 1 view of the chest COMPARISON: July 05, 2019 at 1115 hours FINDINGS: Endotracheal tube in satisfactory position 5 cm proximal to the jv.Tip of nasogastric tube in the left upper quadrant. The port is projected theexpected region of the gastroesophageal junction that should be advanced at least 5cm. Patchy right lung parenchymal opacities. No pleural effusion. Nopneumothorax. No rib fractures. IMPRESSION Endotracheal tube in satisfactory position. Nasogastric tube should beadvanced 5 cm. Multifocal right lung pneumonia. Aspiration not excluded. Thank you for letting us participate in the care of this patient. Forquestions regarding this report, please contact the number below. Electronically signed by: Jessica Chavez [facility] ([phone]),at 07/05/2019 8:16 PM Sha Field APRN IMG DX ORDERABLES * POCT Glucose (07/05/2019 6:40 PM EST) Glucose, POC 89 65 - 199 mg/dL [facility] Comment: Supplemental ranges: <140 mg/dL before meals <180 mg/dL all other times of the day Blood specimen (specimen) 07/05/2019 6:40 PM EST 07/05/2019 6:40 PM EST Razia Dubose MD POINT OF CARE TEST O RDERABLES [facility] [place] [address] documented in this encounter Visit Diagnoses Diagnosis AMS (altered mental status)- Primary Altered mental status, unspecified altered mental status type Hyperactive behavior Unspecified hyperkinetic syndrome of childhood Bradycardia Other specified cardiac dysrhythmias At risk for danger to others Agitation requiring sedation protocol Other and unspecified special symptom or syndrome, not elsewhere classified Pneumonia due to Streptococcus pneumoniae Pneumococcal pneumonia (streptococcus pneumoniae pneumonia) Hypernatremia Hyperosmolality and/or hypernatremia Respiratory failure with hypoxia Acute respiratory failure Hyperactive behavior Unspecified hyperkinetic syndrome of childhood DIFFICULT AIRWAY Narrowing of airway Other diseases of respiratory system, not elsewhere classified documented in this encounter Admitting Diagnoses Diagnosis AMS (altered mental status) documented in this encounter Administered Medications Inactive Administered Medications - up to 3 most recent administrations Medication Order MAR Action Action Date Dose Rate Site Buprenorphine - daily order reminder 1 each 1 each, Oral, DAILY, First dose on Fri07/14/19 at 0900, 3 doses, Last dose on Fri07/16/19 at 0900, If the daily Buprenorphine order has not been placed, contact the Provider to confirm that the order will be written, the dose is held or discontinued. buprenorphine-naloxone (SUBOXONE) 2-0.5 mg sublingual tablet 1-2 tablet 1-2 tablet, Sublingual, EVERY 2 HOURS PRN, Starting on Fri07/13/19 at 2100, Until Fri07/15/19 at 1704, opioid withdrawal - uncomplicated, Day 1 1-2 tablet, Sublingual, EVERY 2 HOURS PRN. Per the Clinical Opiate Withdrawal Scale (COWS) scoring tool: For withdrawal score of 5-12, give 1 (2 mg-0.5 mg) tablet For withdrawal score of greater than 12, 2 (2 mg-0.5 mg) tablets - Contact provider if patient reaches a total daily dose of 12 mg of buprenorphine on day one of induction and continues to score on the COWS. Day 2 and 3 1-2 tablet, Sublingual, EVERY 2 HOURS PRN. Unless sedated, give the previous day's total dose of buprenorphine as a single dose at 8 am then: Per the Clinical Opiate Withdrawal Scale (COWS) scoring tool: For withdrawal score of 5-12, give 1 (2 mg-0.5 mg) tablet For withdrawal score of greater than 12, give 2 (2 mg-0.5 mg) tablets - Contact provider if patient reaches a total daily dose of 16 mg of buprenorphine on day two of induction and continues to score on the COWS., Routine, Patient is on buprenorphine? No Given 07/15/2019 10:53 AM EST 2 tablets Given 07/15/2019 8:06 AM EST 1 tablet Given 07/15/2019 5:12 AM EST 1 tablet cefTRIAXone (ROCEPHIN) 2 g vial attach to sodium chloride 0.9% 50 mL Mini-Bag Plus 2 g, Intravenous, EVERY 24 HOURS, 5 doses, First dose on Fri07/05/19 at 1845, Last dose on Fri07/09/19 at 1845, Administer over 30 Minutes, Growing strep pneumoniae at OSH in sputum, Indication for (Active or Suspected): Pneumonia (Community) New Bag 07/09/2019 6:13 PM EST 2 g 100 mL/hr New Bag 07/08/2019 6:08 PM EST 2 g 100 mL/hr New Bag 07/07/2019 6:31 PM EST 2 g 100 mL/hr chlorhexidine (PERIDEX) 0.12 % oral solution 15 mL 15 mL, Oral, 2 TIMES DAILY, First dose on Fri07/05/19 at 2100, Until Discontinued, Swab oral cavity. Ventilator-associated pneumonia prophylaxis, Routine Given 07/11/2019 9:07 AM EST 15 mLs Given 07/10/2019 8:53 PM EST 15 mLs Given 07/10/2019 9:41 AM EST 15 mLs cisatracurium (NIMBEX) injection 15 mg 15 mg, Intravenous, ONCE, 1 dose, On Fri07/09/19 at 1200, Once with tube exchange/bronch procedure, Routine Given 07/09/2019 1:20 PM EST 15 mg dexamethasone (DECADRON) injection 10 mg 10 mg, Intravenous, ONCE, 1 dose, On Fri07/09/19 at 0900 Given 07/09/2019 9:04 AM EST 10 mg dexamethasone (DECADRON) injection 4 mg 4 mg, Intravenous, EVERY 6 HOURS SCHEDULED, First dose on Fri07/09/19 at 1800, Until Discontinued Given 07/11/2019 5:38 AM EST 4 mg Given 07/11/2019 12:27 AM EST 4 mg Given 07/10/2019 7:00 PM EST 4 mg dexmedetomidine (PRECEDEX) 4 mcg/mL (standard Adult & Pedi greater than 20kg) infusion (premix) 0-1.7 mcg/kg/hr ? 84.1 kg (0-35.7425 mL/hr, rounded to 0-35.7 mL/hr), Intravenous, CONTINUOUS, Starting on Fri07/07/19 at 0900, Until Donna 07/08/19 at 0906, Titrate to sedation level of RASS Goal (-)1 to 0 . Start at 0.4 mcg/kg/hr, adjust by 0.4 mcg/kg/hr every 15 minutes. Once stable, reassess patient every 30 minutes. Rate not to exceed 1.7 mcg/kg/hr. Change rate only after assessing and documenting RASS. Reassess sedation scores within 30 minutes after every rate change. If under sedated, increase rate by 0.4 mcg/kg/hr. If over sedated, hold sedative until target RASS (-)1 to 0 achieved and then restart at 50% of previous rate. Call supervisor char house if goal not achieved at maximum rate. If SAT is ordered and if patient meets criteria for Spontaneous Awakening Trial, titrate per protocol., Routine, Please indicate the name & specialty of the Attending Provider who authorized the use of this medication: Critical Care, Pato Stiles 07/07/2019 1:13 PM EST 0.4 mcg/kg/hr 8.4 mL/hr dextrose 10% infusion 250 mL, at 1,000 mL/hr, Intravenous, EVERY 30 MIN PRN, Starting on Fri07/05/19 at 1834, Until Fri07/14/19 at 1954, For BG 50-70 mg/dL: Oral treatment preferred:?? If able to drink, give 120 mL Juice or Regular (not diet) soda OR If NPO, give 15 gram glucose 40% oral gel massaged into buccal mucosa OR if unconscious or uncooperative, give 25 gram (250 mL) Dextrose 10% IV over 15 minutes per protocol OR, if no IV access, 1 mg Glucagon IM. For BG less than 50 mg/dL: Oral treatment preferred:?? If able to drink, give 240 mL Juice or Regular (not diet) soda OR If NPO, give 30 gram glucose 40% oral gel massaged in buccal mucosa OR if unconscious or uncooperative, give 25 gram (250 mL) Dextrose 10% IV over 15 minutes per protocol OR, if no IV access, 1 mg Glucagon IM. Recheck BG in 30 minutes. May repeat juice/soda, gel, dextrose or glucagon once per episode. For persistent hypoglycemia, consider longer-acting treatment for the duration of the active insulin. New Bag 07/13/2019 8:40 AM EST 250 mLs 1000 mL/hr divalproex (DEPAKOTE) EC tablet 125 mg 125 mg, Oral, 2 TIMES DAILY PRN, Starting on Fri07/13/19 at 2039, Until Fri07/15/19 at 1704, for agitation, DO NOT CRUSH OR OPEN, Routine divalproex (DEPAKOTE) EC tablet 250 mg 250 mg, Oral, 2 TIMES DAILY, First dose on Fri07/13/19 at 2100, Until Discontinued, DO NOT CRUSH OR OPEN, Routine Given 07/15/2019 8:07 AM EST 250 mg Given 07/14/2019 8:21 PM EST 250 mg Given 07/14/2019 9:36 AM EST 250 mg docusate sodium (Colace) (10 mg/mL) oral liquid 100 mg 100 mg, Oral, 2 TIMES DAILY, First dose on Fri07/06/19 at 0915, Until Discontinued, Routine Given 07/09/2019 9:07 PM EST 100 mg Given 07/09/2019 9:03 AM EST 100 mg Given 07/08/2019 10:44 PM EST 100 mg enoxaparin (LOVENOX) injection 40 mg 40 mg, Subcutaneous, NIGHTLY, First dose on Fri07/12/19 at 2100, Until Discontinued, Routine Given 07/14/2019 8:20 PM EST 40 mg Given 07/13/2019 9:29 PM EST 40 mg Given 07/12/2019 8:12 PM EST 40 mg famotidine (PEPCID) injection 20 mg 20 mg, Intravenous, EVERY 12 HOURS SCHEDULED (2 times per day), First dose on Fri07/05/19 at 2100, Until Discontinued Given 07/08/2019 10:16 PM EST 20 mg Given 07/08/2019 8:36 AM EST 20 mg Given 07/07/2019 9:45 PM EST 20 mg fentaNYL 2.5 mg/50 mL infusion 1 dose, Starting on Fri07/05/19 at 1743, Until Fri07/05/19 at 1750, Debby Cobian: cabinet override fentaNYL 50 mcg/mL syringe 0-200 mcg/hr (0-4 mL/hr), Intravenous, CONTINUOUS, Starting on Fri07/05/19 at 1800, Until 07/11/19 at 1130, Pain Scale Goal Less than or equal to 3 or to patient verbalized goal. Initial Infusion rate: 50 mcg/hour; Adjust hourly rate by 50% AND bolus 50% of new hourly rate every 15 minutes to achieve goal. Rate not to exceed 200 mcg/hr. Pain assessment every 15 minutes initially and reassess pain 15 minutes after each bolus given. Pain assessment MUST be documented prior to rate change. Rate/Dose Change 07/11/2019 10:00 AM EST 50 mcg/hr 1 mL/hr Rate/Dose Verify 07/11/2019 8:00 AM EST 150 mcg/hr 3 mL/hr New Bag 07/11/2019 7:49 AM EST 150 mcg/hr 3 mL/hr fentaNYL bolus from syringe 25 mcg 25 mcg, Intravenous, ONCE, 1 dose, On Fri07/05/19 at 1800, Initial bolus dose: IV once now followed by continuous infusion., Routine Bolus from Bag 07/05/2019 5:54 PM EST 25 mcg fentaNYL bolus from syringe 25-100 mcg 25-100 mcg, Intravenous, EVERY 15 MIN PRN, Starting on Fri07/05/19 at 1734, Until 07/11/19 at 1130, Pain, Refer to infusion order for Bolus instructions. Reassess pain 15 minutes after bolus given., Routine Bolus from Bag 07/11/2019 9:05 AM EST 100 mcg Bolus from Bag 07/11/2019 8:04 AM EST 50 mcg Bolus from Bag 07/11/2019 8:01 AM EST 50 mcg folic acid (FOLVITE) tablet 1,000 mcg 1,000 mcg (1 mg), Oral, DAILY, First dose on Fri07/12/19 at 0900, Until Discontinued, Routine Given 07/15/2019 8:06 AM EST 1,000 mcg Given 07/14/2019 9:35 AM EST 1,000 mcg Given 07/13/2019 10:40 AM EST 1,000 mcg folic acid injection 1 mg 1 mg, Intravenous, DAILY, First dose on Fri07/06/19 at 0900, Until Discontinued, Routine Given 07/11/2019 9:13 AM EST 1 mg Given 07/10/2019 9:41 AM EST 1 mg Given 07/09/2019 9:10 AM EST 1 mg free water bolus 200 mL 200 mL, Per NG tube, 4 TIMES DAILY, First dose on Fri07/06/19 at 0900, Until Discontinued, Routine Given 07/06/2019 4:15 PM EST 200 mLs Given 07/06/2019 12:00 PM EST 200 mLs Given 07/06/2019 9:05 AM EST 200 mLs free water bolus 200 mL 200 mL, Per NG tube, 3 TIMES DAILY, First dose on Fri07/06/19 at 2100, Until Discontinued, Routine Given 07/08/2019 9:00 PM EST 200 mLs Given 07/08/2019 3:00 PM EST 200 mLs Given 07/08/2019 8:37 AM EST 200 mLs haloperidol lactate (HALDOL) injection 10 mg 10 mg, Intravenous, ONCE, 1 dose, On Fri07/12/19 at 0000, If medication ordered subcutaneously, do not administer more than 2 mL as a single injection., Routine Given 07/12/2019 12:19 AM EST 10 mg haloperidol lactate (HALDOL) injection 5 mg 5 mg, Intravenous, EVERY 6 HOURS PRN, Starting on Fri07/11/19 at 1129, Until Fri07/13/19 at 2040, Agitation, If medication ordered subcutaneously, do not administer more than 2 mL as a single injection., Routine Given 07/12/2019 8:44 PM EST 5 mg Given 07/12/2019 1:59 AM EST 5 mg Given 07/11/2019 8:12 PM EST 5 mg haloperidol lactate (HALDOL) injection 5 mg 5 mg, Intravenous, ONCE, 1 dose, On Fri07/11/19 at 1845, If medication ordered subcutaneously, do not administer more than 2 mL as a single injection., Routine Given 07/11/2019 6:31 PM EST 5 mg heparin (Porcine) subcutaneous injection 5,000 Units 5,000 Units, Subcutaneous, EVERY 8 HOURS SCHEDULED, First dose on Fri07/05/19 at 2200, Until Discontinued, Routine Given 07/12/2019 5:17 AM EST 5,000 Unit s Given 07/11/2019 10:31 PM EST 5,000 Units Given 07/11/2019 2:01 PM EST 5,000 Units ketamine (KETALAR) 500 mg in sodium chloride 0.9% 500 mL infusion 0.3 mg/kg/hr ? 84.1 kg (25.23 mL/hr, rounded to 25.2 mL/hr), Intravenous, CONTINUOUS, Starting on Fri07/06/19 at 0915, Until Fri07/07/19 at 0831 New Bag 07/07/2019 6:02 AM EST 0.3 mg/kg/hr 25.2 mL/hr Rate/Dose Verify 07/06/2019 6:00 PM EST 0.3 mg/kg/hr 25.2 mL/hr Rate/Dose Verify 07/06/2019 4:00 PM EST 0.3 mg/kg/hr 25.2 mL/hr lidocaine (XYLOCAINE) 10 mg/mL (1 %) injection 10 mg 10 mg, Tracheal Tube, ONCE, 1 dose, On Fri07/09/19 at 1330, Routine Given 07/09/2019 1:30 PM EST 10 mg magnesium sulfate 1g in dextrose 5% 100mL 1 g, Intravenous, EVERY HOUR, 2 doses, First dose on Fri07/07/19 at 0615, Last dose on Fri07/07/19 at 0700, Administer over 60 Minutes, Use TWO magnesium sulfate 1g/100 mL infusion bags to administer total of 2 grams magnesium sulfate New Bag 07/07/2019 7:32 AM EST 1 g 100 m L/hr New Bag 07/07/2019 6:00 AM EST 1 g 100 mL/hr magnesium sulfate 2 g in sterile water 50 mL 2 g, Intravenous, ONCE, 1 dose, On Fri07/12/19 at 0230, Administer over 120 Minutes New Bag 07/12/2019 2:11 AM EST 2 g 25 mL/hr magnesium sulfate 2 g in sterile water 50 mL 2 g, Intravenous, ONCE, 1 dose, On Fri07/12/19 at 1230, Administer over 120 Minutes New Bag 07/12/2019 12:25 PM EST 2 g 25 mL/hr magnesium sulfate 2 g in sterile water 50 mL 2 g, Intravenous, ONCE, 1 dose, On Fri07/13/19 at 1515, Administer over 120 Minutes New Bag 07/13/2019 4:27 PM EST 2 g 25 mL/hr midazolam (PF) (VERSED) 1 mg/mL injection 1 dose, Starting on Fri07/05/19 at 1818, Until Fri07/05/19 at 1825, Leah Pruett: cabinet override midazolam (PF) (VERSED) injection 2 mg 2 mg, Intravenous, EVERY 1 HOUR PRN, Starting on 07/05/19 at 1828, Until Fri07/06/19 at 0304, Sleep, Routine Given 07/05/2019 6:25 PM EST 2 mg midazolam (PF) (VERSED) injection 2 mg 2 mg, Intravenous, EVERY 1 HOUR PRN, Starting on Fri07/06/19 at 0303, Until Fri07/06/19 at 1536, Give for RASS 2+, Routine Given 07/06/2019 2:42 PM EST 2 mg Given 07/06/2019 10:30 AM EST 2 mg Given 07/06/2019 9:02 AM EST 2 mg midazolam (PF) (VERSED) injection 3 mg 3 mg, Intravenous, ONCE, 1 dose, On Fri07/06/19 at 0345, Routine Given 07/06/2019 3:29 AM EST 3 mg midazolam (VERSED) bolus from bag 1 mg 1 mg, Intravenous, EVERY 30 MIN PRN, Starting on Fri07/06/19 at 1535, Until Donna 07/08/19 at 1618, Sedation, Refer to infusion order for Bolus instructions. Reassess within 30 minutes after bolus given., Routine Bolus from Bag 07/07/2019 3:57 PM EST 1 mg Bolus from Bag 07/07/2019 2:30 AM EST 1 mg Bolus from Bag 07/06/2019 9:31 PM EST 1 mg midazolam 1 mg/mL (standard ADULT & Pedi greater than 20kg) infusion 0-4 mg/hr (0-4 mL/hr), Intravenous, CONTINUOUS, Starting on Fri07/06/19 at 1600, Until Donna 07/08/19 at 1618, Initial bolus 1 mg midazolam with start of infusion. Titrate to sedation level of RASS Goal (-)1-0. Start at 1 mg/hr, adjust by 1 mg/hr every 30 minutes. Rate not to exceed 4 mg/hr. Change rate only after documenting RASS. Reassess sedation scores after every rate change. Call supervisor char house if goal not achieved at maximum rate. If SAT is ordered and if patient meets criteria for Spontaneous Awakening Trial, titrate per protocol., Routine, Use of Midazolam for routine sedation is NOT recommended. Please indicate reason (Note - the need for low dose pressor, or slight increase in pressor is NOT a contraindication to propofoL or dexmedeTOMIDine): RASS target is -4, or -5 Rate/Dose Verify 07/08/2019 2:00 PM EST 1 mg/hr 1 mL/hr New Bag 07/08/2019 12:10 PM EST 1 mg/hr 1 mL/hr Rate/Dose Verify 07/08/2019 8:00 AM EST 1 mg/hr 1 mL/hr PHENobarbital (LUMINAL) 659.1 mg in sodium chloride 0.9% 60.14 mL 659.1 mg (rounded from 659 mg = 10 mg/kg/dose ? 65.9 kg [place] weight), Intravenous, ONCE, 1 dose, On 07/10/19 at 1000, Administer over 15 Minutes, Maximum administration rate: 100 mg/min New Bag 07/10/2019 10:54 AM EST 659.1 mg 240.6 mL/hr PHENobarbital (LUMINAL) injection 15.6 mg 15.6 mg (rounded from 16 mg), Intravenous, EVERY 12 HOURS, 2 doses, First dose on Fri07/12/19 at 0930, Last dose on Fri07/12/19 at 2129, Administer over 5 Minutes, Maximum administration rate: 100 mg/min Given 07/12/2019 8:44 PM EST 15.6 mg 1.4 mL/hr Given 07/12/2019 9:36 AM EST 15.6 mg 1.4 mL/hr PHENobarbital (LUMINAL) injection 30 mg 30 mg, Intravenous, EVERY 12 HOURS, 2 doses, First dose on Fri07/11/19 at 0930, Last dose on Fri07/11/19 at 2129, Administer over 5 Minutes, Maximum administration rate: 100 mg/min Given 07/11/2019 8:35 PM EST 30 mg 2.8 mL/hr Given 07/11/2019 10:20 AM EST 30 mg 2.8 mL/hr PHENobarbital (LUMINAL) injection 7.8 mg 7.8 mg (rounded from 8 mg), Intravenous, EVERY 12 HOURS, 2 doses, First dose on Fri07/13/19 at 0930, Last dose on Fri07/13/19 at 2129, Administer over 5 Minutes, Maximum administration rate: 100 mg/min Given 07/13/2019 9:30 PM EST 7.8 mg 0.7 mL/hr Given 07/13/2019 10:40 AM EST 7.8 mg 0.7 mL/hr polyethylene glycol (MIRALAX) packet 17 g 17 g, Oral, DAILY PRN, Starting on Fri07/05/19 at 1734, Until Fri07/11/19 at 1509, Constipation, Administer if no bowel movement within 48 hours to achieve: (1) One bowel movement at least every 48 hours, AND (2) without straining. If multiple PRN bowel medications ordered, start with polyethylene glycol, then lactulose, then oral bisacodyl, then bisacodyl suppository, then magnesium citrate, then tap water enema. Multiple medications may be given concomitantly for constipation., Routine Given 07/09/2019 9:03 AM EST 17 g potassium chloride (K-DUR/KLOR-CON) extended release tablet 40 mEq 40 mEq, Oral, ONCE, 1 dose, On Fri07/13/19 at 1515, 20 mEq tablet may be dissolved in water for administration, Routine Given 07/13/2019 4:20 PM EST 40 mEq potassium chloride (Kayciel) (1.33 mEq/mL) oral liquid 20-60 mEq 20-60 mEq, Per NG tube, EVERY 4 HOURS PRN, Starting on Donna 07/08/19 at 0532, Until Fri07/13/19 at 1408, hypokalemia, For serum potassium: 3.9 - 4 mMol/L = 20 mEq. 3.6 - 3.8 mMol/L = 40 mEq. 3.3 - 3.5 mMol/L = 40 mEq. 2.8 - 3.2 mMol/L = 60 mEq. Less than 2.8 = Call physician, then begin potassium chloride replacement via central or peripheral IV route. See instructions for Potassium Protocol in online policies., Routine Given 07/13/2019 3:24 AM EST 40 mEq Given 07/08/2019 8:37 AM EST 60 mEq potassium chloride (Kayciel) (1.33 mEq/mL) oral liquid 40 mEq 40 mEq, Oral, ONCE, On Fri07/12/19 at 1230, 1 dose Given 07/12/2019 12:15 PM EST 40 mEq potassium chloride 20 mEq in 100 mL 20 mEq, Intravenous, EVERY 1 HOUR PRN, Starting on Fri07/12/19 at 1200, Until Fri07/13/19 at 1408, Administer over 60 Minutes, hypokalemia, Administer 3 doses for a serum potassium (mMol/L) of 2.8 - 3.2 See instructions for Potassium Protocol in online policies. New Bag 07/12/2019 3:07 PM EST 20 mEq 100 mL/hr New Bag 07/12/2019 2:01 PM EST 20 mEq 100 mL/hr New Bag 07/12/2019 12:12 PM EST 20 mEq 100 mL/hr potassium phosphate 15 mMol in sodium chloride 0.9% 250 mL 15 mmol, Intravenous, EVERY 4 HOURS, 2 doses, First dose on Fri07/12/19 at 0215, Last dose on Fri07/12/19 at 0615, Administer over 4 Hours, Administer over 4-6 hours New Bag 07/12/2019 6:45 AM EST 15 mmol Rate/Dose Change 07/12/2019 6:00 AM EST New Bag 07/12/2019 2:39 AM EST 15 mmol potassium, sodium phosphates (NEUTRA-PHOS) 280-160-250 mg oral packet 1.5 g 1.5 g, Oral, ONCE, 1 dose, On Fri07/13/19 at 1515, Take with full glass of water, Routine Given 07/13/2019 4:20 PM EST 1.5 g propofol (DIPRIVAN) 10 mg/mL infusion 1 dose, Starting on Fri07/05/19 at 1817, Until Fri07/05/19 at 1858, Leah Pruett.: cabinet override propofol (DIPRIVAN) infusion 0-90 mcg/kg/min ? 84.1 kg (0-45.414 mL/hr, rounded to 0-45.4 mL/hr), Intravenous, CONTINUOUS, Starting on Fri07/05/19 at 1800, Until Fri07/11/19 at 1130, Titrate to sedation level of RASS Goal (-)1 to 0 . Start at 20 mcg/kg/min, adjust rate by 10 mcg/kg/min every 3 minutes. Once stable, reassess patient every 30 minutes. Rate not to exceed 50 mcg/kg/minute. Change rate only after assessing and documenting RASS. Reassess sedation scores within 30 minutes after every rate change. If under sedated, increase rate by 10 mcg/kg/min. If over sedated, hold sedative until target RASS (-)1 to 0 achieved and then restart at 50% of previous rate. Call supervisor char house if goal not achieved at maximum rate. If SAT is ordered and if patient meets criteria for Spontaneous Awakening Trial, titrate per protocol., Routine Rate/Dose Change 07/11/2019 11:04 AM EST 30 mcg/kg/min 15.1 mL/hr Rate/Dose Change 07/11/2019 8:33 AM EST 60 mcg/kg/min 30.3 mL/hr Rate/Dose Change 07/11/2019 8:10 AM EST 45 mcg/kg/min 22.7 mL/hr protein powder 3 Scoop, Per OG Tube, 4 TIMES DAILY, First dose on Fri07/07/19 at 2100, Until Discontinued, Routine Given 07/08/2019 9:00 PM EST 3 Scoops Given 07/08/2019 4:25 PM EST 3 Scoops Given 07/08/2019 1:00 PM EST 3 Scoops protein powder 2 Scoop, Per NG tube, 4 TIMES DAILY, First dose on Fri07/09/19 at 1700, Until Discontinued, Routine Given 07/13/2019 9:00 AM EST 2 Scoops Given 07/12/2019 9:00 PM EST 2 Scoops Given 07/11/2019 9:00 PM EST 2 Scoops QUEtiapine (SEROquel) tablet 50 mg 50 mg, Oral, EVERY 12 HOURS, First dose on Fri07/07/19 at 1515, Until Discontinued, Routine Given 07/08/2019 5:52 AM EST 50 mg Given 07/07/2019 4:15 PM EST 50 mg QUEtiapine (SEROquel) tablet 50 mg 50 mg, Oral, EVERY 6 HOURS, First dose (after last modification) on Fri07/08/19 at 1200, Until Discontinued, Routine Given 07/13/2019 5:19 AM EST 50 mg Given 07/13/2019 12:47 AM EST 50 mg Given 07/12/2019 5:30 PM EST 50 mg QUEtiapine (SEROquel) tablet 75 mg 75 mg, Oral, DAILY, First dose on Fri07/13/19 at 1100, Until Discontinued, Routine Given 07/13/2019 12:00 PM EST 75 mg sennosides (Senokot) (1.76 mg/mL) oral liquid 8.8 mg 8.8 mg, Oral, 2 TIMES DAILY, First dose on Fri07/06/19 at 0915, Until Discontinued, Routine Given 07/09/2019 9:07 PM EST 8.8 mg Given 07/09/2019 9:04 AM EST 8.8 mg Given 07/08/2019 10:21 PM EST 8.8 mg sodium bicarbonate tablet 650 mg 650 mg, Oral, DAILY PRN, Starting on Fri07/06/19 at 1737, Until Fri07/14/19 at 1858, feeding tube clearance, Take one 650 mg tablet (7.7 meq of sodium bicarbonate), crush tablet, and mix with 10 mL of sterile water. This will take approximately 3 to 5 minutes. There will be some precipitate in the water, likely from the tablet excipients., Routine Given 07/14/2019 9:[address] 650 mg sodium chloride 0.9 % (flush) flush 5 mL 5 mL, Intravenous, 2 TIMES DAILY, First dose on Fri07/05/19 at 2100, Until Discontinued, Routine Given 07/14/2019 8:22 PM EST 5 mLs Given 07/14/2019 9:37 AM EST 5 mLs Given 07/13/2019 9:30 PM EST 5 mLs sodium chloride 0.9% infusion 10 mL/hr, Intravenous, CONTINUOUS, Starting on Fri07/09/19 at 1930, Until Fri07/15/19 at 1704 Rate/Dose Verify 07/10/2019 6:00 AM EST 10 mL/hr 10 mL/hr Rate/Dose Verify 07/10/2019 4:00 AM EST 10 mL/hr 10 mL/h r Rate/Dose Verify 07/10/2019 2:00 AM EST 10 mL/hr 10 mL/h r sodium chloride 0.9% infusion 20 mL/hr, Intravenous, CONTINUOUS, Starting on Fri07/09/19 at 1930, Until Fri07/13/19 at 1408 Rate/Dose Verify 07/10/2019 4:00 AM EST 10 mL/hr 10 mL/hr Rate/Dose Verify 07/10/2019 2:00 AM EST 10 mL/hr 10 mL/h r Rate/Dose Verify 07/10/2019 12:00 AM EST 10 mL/hr 10 mL/ hr sodium phosphate 15 mMol in sodium chloride 0.9% 150 mL 15 mmol, Intravenous, ONCE, 1 dose, On Fri07/12/19 at 1315, Administer over 4 Hours, Administer over 4-6 hours New Bag 07/12/2019 2:48 PM EST 15 mmol 37.5 mL/hr thiamine (B-1) 500 mg in sodium chloride 0.9% 55 mL 500 mg, Intravenous, 3 TIMES DAILY, First dose on Fri07/06/19 at 0900, Until Discontinued, Administer over 30 Minutes, Doses of 100 mg are to be administered as IV push over 5 minutes. Doses of 200 mg or more should be mixed in 50 mL 0.9% Sodium Chloride and infused over 30 minutes. New Bag 07/11/2019 2:49 PM EST 500 mg 110 mL /hr New Bag 07/11/2019 8:53 AM EST 500 mg 110 mL/hr New Bag 07/10/2019 8:26 PM EST 500 mg 110 mL/hr thiamine (Vitamin B-1) tablet 500 mg 500 mg, Per NG tube, 3 TIMES DAILY, First dose on Fri07/11/19 at 1530, Until Discontinued, Routine Given 07/14/2019 2:26 PM EST 500 mg Given 07/14/2019 9:35 AM EST 500 mg Given 07/13/2019 9:29 PM EST 500 mg thiamine (Vitamin B-1) tablet 500 mg 500 mg, Oral, 3 TIMES DAILY, First dose (after last modification) on Fri07/14/19 at 2100, Until Discontinued, Routine Given 07/15/2019 8:06 AM EST 500 mg Given 07/14/2019 8:21 PM EST 500 mg tube feeding diet 10 mL, Per NG tube, at 10 mL/hr, CONTINUOUS, Starting on Fri07/06/19 at 1800, Until Fri07/07/19 at 0550, Administer flushes and check residuals per policy, Which tube feed product? Peptamen AF, Strength: FULL Strength, Initial Rate: (mL/hr): 10, Advance by: (mL): 10, Advance every: Q4H, Do you want to Hold Tube Feed? No Rate/Dose Change 07/07/2019 4:00 AM EST 30 mL /hr Rate/Dose Change 07/07/2019 12:43 AM EST 20 mL/ hr New Bag 07/06/2019 8:00 PM EST 10 mLs 10 mL/hr tube feeding diet 9,999 mL, Per NG tube, at 60 mL/hr, CONTINUOUS, Starting on Fri07/07/19 at 0615, Until Fri07/07/19 at 1917, Administer flushes and check residuals per policy, Which tube feed product? Peptamen AF, Strength: FULL Strength, Initial Rate: (mL/hr): 10, Advance by: (mL): 10, Advance every: Q4H, Goal final rate: (mL/hr): 60, Do you want to Hold Tube Feed? No Rate/Dose Change 07/07/2019 4:38 PM EST 60 mL /hr New Bag 07/07/2019 2:46 PM EST 1,000 mLs 50 mL/hr Rate/Dose Change 07/07/2019 11:55 AM EST 50 mL/ hr tube feeding diet 9,999 mL, Per NG tube, at 50 mL/hr, CONTINUOUS, Starting on Fri07/07/19 at 1945, Until Fri07/09/19 at 0834, Administer flushes and check residuals per policy, Which tube feed product? Vivonex RTF, Strength: FULL Strength, Initial Rate: (mL/hr): 10, Advance by: (mL): 10, Advance every: Q4H, Goal final rate: (mL/hr): 50, Do you want to Hold Tube Feed? No New Bag 07/08/2019 5:00 PM EST 9,999 mLs 50 mL/hr Rate/Dose Verify 07/08/2019 8:00 AM EST 50 mL/h r Continued Bag 07/07/2019 7:45 PM EST 9,999 mLs 50 mL/hr tube feeding diet 700 mL, Per NG tube, CONTINUOUS, Starting on Fri07/09/19 at 1600, Until Fri07/09/19 at 2220, Administer flushes and check residuals per policy, Which tube feed product? Promote, Strength: FULL Strength, Initial Rate: (mL/hr): 20, Advance by: (mL): 10, Advance every: Q4H, Goal final rate: (mL/hr): 35, Additional Information (if any): With current ppf rate providing ~1000 kcal, goal rate for TF is 35 ml/hr Rate/Dose Change 07/09/2019 8:00 PM EST 20 mL/hr New Bag 07/09/2019 4:50 PM EST 700 mLs tube feeding diet 700 mL, Per NG tube, CONTINUOUS, Starting on Fri07/09/19 at 2245, Until Fri07/10/19 at 2327, Administer flushes and check residuals per policy, Which tube feed product? Promote, Strength: FULL Strength, Initial Rate: (mL/hr): 20, Advance by: (mL): 10, Advance every: Q4H, Goal final rate: (mL/hr): 35, Additional Information (if any): With current ppf rate providing ~1000 kcal, goal rate for TF is 35 ml/hr, Do you want to Hold Tube Feed? Yes, What Start date should the Tube Feed be held? 07/10/2019, What time should the Tube Feed be held? 4:00 AM New Bag 07/10/2019 4:10 PM EST 700 mLs 30 mL/hr Rate/Dose Change 07/10/2019 2:00 AM EST 30 mL/h r Rate/Dose Verify 07/10/2019 12:00 AM EST 20 mL/ hr tube feeding diet 700 mL, Per NG tube, CONTINUOUS, Starting on 07/10/19 at 2345, Until Fri07/12/19 at 1633, Administer flushes and check residuals per policy, Which tube feed product? Promote, Strength: FULL Strength, Initial Rate: (mL/hr): 20, Advance by: (mL): 10, Advance every: Q4H, Goal final rate: (mL/hr): 35, Additional Information (if any): With current ppf rate providing ~1000 kcal, goal rate for TF is 35 ml/hr, Do you want to Hold Tube Feed? Yes, What Start date should the Tube Feed be held? 07/11/2019, What time should the Tube Feed be held? 4:00 AM Rate/Dose Verify 07/12/2019 8:00 AM EST 35 mL/hr Restarted 07/12/2019 6:29 AM EST 35 mL/hr New Bag 07/10/2019 11:45 PM EST 700 mLs 30 mL/hr tube feeding diet 1,900 mL, Per NG tube, CONTINUOUS, Starting on 07/12/19 at 1700, Until 07/13/19 at 1640, Administer flushes and check residuals per policy, Which tube feed product? Promote, Initial Rate: (mL/hr): 35, Advance by: (mL): 10, Advance every: Q8H, Goal final rate: (mL/hr): 95, Additional Information (if any): pt no longer needs protein powder with TF goal of 95 ml/hr New Bag 07/12/2019 5:00 PM EST 1,900 mLs 35 mL/hr white petrolatum-mineral oil ophthalmic ointment 1 each, Both Eyes, 2 TIMES DAILY, First dose on Fri07/06/19 at 0915, Until Discontinued Given 07/11/2019 9:10 AM EST 1 each Given 07/10/2019 8:26 PM EST 1 each Given 07/10/2019 8:30 AM EST 1 each documented in this encounter Active and Recently Administered Medications Times are shown in EST. Scheduled Medication Order 07/13/2019 07/14/2019 07/15/2019 Buprenorphine - daily order reminder 1 each 1 each, Oral, DAILY, First dose on Fri07/14/19 at 0900, 3 doses, Last dose on Fri07/16/19 at 0900, If the daily Buprenorphine order has not been placed, contact the Provider to confirm that the order will be written, the dose is held or discontinued. 0900 (Verified - Provider: Kimmy Boswell RN) 0807 (Verified - Provider: Kimmy Boswell RN) divalproex (DEPAKOTE) EC tablet 250 mg 250 mg, Oral, 2 TIMES DAILY, First dose on Fri07/13/19 at 2100, Until Discontinued, DO NOT CRUSH OR OPEN, Routine 2155 (Given - Provider: Mirlande Storey RN) 0936 (Given - Provider: Kimmy Boswell RN)2020 (Given - Provider: Mirlande Storey RN) 0807 (Given - Provider: Kimmy Boswell RN) enoxaparin (LOVENOX) injection 40 mg 40 mg, Subcutaneous, NIGHTLY, First dose on Fri07/12/19 at 2100, Until Discontinued, Routine 2128 (Given - Provider: Mirlande Storey RN) 2019 (Given - Provider: Mirlande Storey RN) folic acid (FOLVITE) tablet 1,000 mcg 1,000 mcg (1 mg), Oral, DAILY, First dose on Fri07/12/19 at 0900, Until Discontinued, Routine 1040 (Given - Provider: Jolene Holloway RN) 0935 (Given - Provider: Kimmy Boswell RN) 0806 (Given - Provider: Kimmy Boswell RN) magnesium sulfate 2 g in sterile water 50 mL (COMPLETED) 2 g, Intravenous, ONCE, 1 dose, On Fri07/13/19 at 1515, Administer over 120 Minutes 1627 (New Bag - Provider: Jolene Holloway RN)1827 (Stopped - Provider: Jolene Holloway RN) PHENobarbital (LUMINAL) injection 7.8 mg (COMPLETED)(Linked Group 1) 7.8 mg (rounded from 8 mg), Intravenous, EVERY 12 HOURS, 2 doses, First dose on Fri07/13/19 at 0930, Last dose on Fri07/13/19 at 2130, Administer over 5 Minutes, Maximum administration rate: 100 mg/min 1040 (Given - Provider: Jolene Holloway RN)2130 (Given - Provider: Mirlande Storey RN) potassium chloride (K-DUR/KLOR-CON) extended release tablet 40 mEq (COMPLETED) 40 mEq, Oral, ONCE, 1 dose, On Fri07/13/19 at 1515, 20 mEq tablet may be dissolved in water for administration, Routine 1620 (Given - Provider: Jolene Holloway RN) potassium, sodium phosphates (NEUTRA-PHOS) 280-160-250 mg oral packet 1.5 g (COMPLETED) 1.5 g, Oral, ONCE, 1 dose, On Fri07/13/19 at 1515, Take with full glass of water, Routine 1620 (Given - Provider: Jolene Holloway RN) protein powder (CANCELED) 2 Scoop, Per NG tube, 4 TIMES DAILY, First dose on Fri07/09/19 at 1700, Until Discontinued, Routine 0900 (Given - Provider: Jolene Holloway RN)1300 (Not Given - Provider: Jolene Holloway RN - Reason: Per MD Order)1700 (Not Given - Provider: Jolene Holloway RN - Reason: Order parameters not met)2100 (Not Given - Provider: Mirlande Storey RN - Reason: Patient/family refused) 0900 (Not Given - Provider: Kimmy Boswell RN - Reason: Order parameters not met)1300 (Not Given - Provider: Kimmy Boswell RN - Reason: See comment - Comment: Patient not on TF anymore)1700 (Not Given - Provider: Kimmy Boswell RN - Reason: See comment - Comment: Patient not getting TFs) QUEtiapine (SEROquel) tablet 50 mg (CANCELED) 50 mg, Oral, EVERY 6 HOURS, First dose (after last modification) on Donna 07/08/19 at 1200, Until Discontinued, Routine 0047 (Given - Provider: Colt Hamilton RN)0519 (Given - Provider: Colt Hamilton RN) QUEtiapine (SEROquel) tablet 75 mg (CANCELED) 75 mg, Oral, DAILY, First dose on Fri07/13/19 at 1100, Until Discontinued, Routine 1200 (Given - Provider: Tulio Silverio RN) sodium chloride 0.9 % (flush) flush 5 mL 5 mL, Intravenous, 2 TIMES DAILY, First dose on Fri07/05/19 at 2100, Until Discontinued, Routine 0900 (Given - Provider: Jolene Holloway RN)2130 (Given - Provider: Mirlande Storey RN) 0937 (Given - Provider: Kimmy Boswell RN)2021 (Given - Provider: Mirlande Storey RN) 0900 (Due) thiamine (Vitamin B-1) tablet 500 mg (CANCELED) 500 mg, Per NG tube, 3 TIMES DAILY, First dose on Fri07/11/19 at 1530, Until Discontinued, Routine 1039 (Given - Provider: Jolene Holloway RN)1620 (Given - Provider: Jolene Holloway RN)2129 (Given - Provider: Mirlande Storey RN) 0935 (Given - Provider: Kimmy Boswell RN)1426 (Given - Provider: Kimmy Boswell RN) thiamine (Vitamin B-1) tablet 500 mg 500 mg, Oral, 3 TIMES DAILY, First dose (after last modification) on Fri07/14/19 at 2100, Until Discontinued, Routine 2020 (Given - Provider: Mirlande Storey RN) 0806 (Given - Provider: Kimmy Boswell RN) Continuous Medication Order 07/13/2019 07/14/2019 07/15/2019 sodium chloride 0.9% infusion 10 mL/hr, Intravenous, CONTINUOUS, Starting on Fri07/09/19 at 1930, Until Donna 07/15/19 at 1704 PRN Medication Order 07/13/2019 07/14/2019 07/15/2019 buprenorphine-naloxone (SUBOXONE) 2-0.5 mg sublingual tablet 1-2 tablet(Linked Group 2) 1-2 tablet, Sublingual, EVERY 2 HOURS PRN, Starting on Fri07/13/19 at 2100, Until Fri07/15/19 at 1704, opioid withdrawal - uncomplicated, Day 1 1-2 tablet, Sublingual, EVERY 2 HOURS PRN. Per the Clinical Opiate Withdrawal Scale (COWS) scoring tool: For withdrawal score of 5-12, give 1 (2 mg-0.5 mg) tablet For withdrawal score of greater than 12, 2 (2 mg-0.5 mg) tablets - Contact provider if patient reaches a total daily dose of 12 mg of buprenorphine on day one of induction and continues to score on the COWS. Day 2 and 3 1-2 tablet, Sublingual, EVERY 2 HOURS PRN. Unless sedated, give the previous day's total dose of buprenorphine as a single dose at 8 am then: Per the Clinical Opiate Withdrawal Scale (COWS) scoring tool: For withdrawal score of 5-12, give 1 (2 mg-0.5 mg) tablet For withdrawal score of greater than 12, give 2 (2 mg-0.5 mg) tablets - Contact provider if patient reaches a total daily dose of 16 mg of buprenorphine on day two of induction and continues to score on the COWS., Routine, Patient is on buprenorphine? No 1056 (Given - Provider: Kimmy oBswell RN)1426 (Given - Provider: Kimmy Boswell RN)2019 (Given - Provider: Mirlande Storey, ROBBIN)2248 (Given - Provider: Mirlande Storey, ROBBIN) 0512 (Given - Provider: Mirlande Storey, ROBBIN)0806 (Given - Provider: Kimmy Boswell RN)1053 (Given - Provider: Kimmy Boswell RN - Comment: per psych TILE PICKER at bedside to get patient to daily dosage) dextrose 10% infusion (CANCELED)(Linked Group 3) 250 mL, at 1,000 mL/hr, Intravenous, EVERY 30 MIN PRN, Starting on Fri07/05/19 at 1834, Until Fri07/14/19 at 1954, For BG 50-70 mg/dL: Oral treatment preferred:?? If able to drink, give 120 mL Juice or Regular (not diet) soda OR If NPO, give 15 gram glucose 40% oral gel massaged into buccal mucosa OR if unconscious or uncooperative, give 25 gram (250 mL) Dextrose 10% IV over 15 minutes per protocol OR, if no IV access, 1 mg Glucagon IM. For BG less than 50 mg/dL: Oral treatment preferred:?? If able to drink, give 240 mL Juice or Regular (not diet) soda OR If NPO, give 30 gram glucose 40% oral gel massaged in buccal mucosa OR if unconscious or uncooperative, give 25 gram (250 mL) Dextrose 10% IV over 15 minutes per protocol OR, if no IV access, 1 mg Glucagon IM. Recheck BG in 30 minutes. May repeat juice/soda, gel, dextrose or glucagon once per episode. For persistent hypoglycemia, consider longer-acting treatment for the duration of the active insulin. 0840 (New Bag - Provider: Jolene Holloway, ROBBIN)0855 (Stopped - Provider: Jolene Holloway, ROBBIN) divalproex (DEPAKOTE) EC tablet 125 mg 125 mg, Oral, 2 TIMES DAILY PRN, Starting on Fri07/13/19 at 2039, Until Fri07/15/19 at 1704, for agitation, DO NOT CRUSH OR OPEN, Routine lidocaine (XYLOCAINE) 10 mg/mL (1 %) injection 3 mg 3 mg (0.3 mL), Subcutaneous, ONCE PRN, 1 dose, Starting on Fri07/05/19 at 1734, Until Fri07/15/19 at 1704, for discomfort with PIV insertion, Routine potassium chloride (Kayciel) (1.33 mEq/mL) oral liquid 20-60 mEq (CANCELED) 20-60 mEq, Per NG tube, EVERY 4 HOURS PRN, Starting on Fri07/08/19 at 0532, Until Fri07/13/19 at 1408, hypokalemia, For serum potassium: 3.9 - 4 mMol/L = 20 mEq. 3.6 - 3.8 mMol/L = 40 mEq. 3.3 - 3.5 mMol/L = 40 mEq. 2.8 - 3.2 mMol/L = 60 mEq. Less than 2.8 = Call physician, then begin potassium chloride replacement via central or peripheral IV route. See instructions for Potassium Protocol in online policies., Routine 0324 (Given - Provider: Colt Hamilton RN) sodium bicarbonate tablet 650 mg (CANCELED) 650 mg, Oral, DAILY PRN, Starting on Fri07/06/19 at 1737, Until Fri07/14/19 at 1858, feeding tube clearance, Take one 650 mg tablet (7.7 meq of sodium bicarbonate), crush tablet, and mix with 10 mL of sterile water. This will take approximately 3 to 5 minutes. There will be some precipitate in the water, likely from the tablet excipients., Routine 0935 (Given - Provider: Kimmy Boswell RN) sodium chloride 0.9 % (flush) flush 5-20 mL 5-20 mL, Intravenous, EVERY 1 MIN PRN, Starting on Fri07/05/19 at 1734, Until Fri07/15/19 at 1704, flush, Flush pertains to all indwelling lines. Flush per protocol found in the job aid using the link provided on this medication record., Routine Linked Groups Order Group 1: PHENobarbital (LUMINAL) injection 30 mg (COMPLETED) 30 mg, Intravenous, EVERY 12 HOURS, 2 doses, First dose on Fri07/11/19 at 0930, Last dose on Fri07/11/19 at 2130, Administer over 5 Minutes, Maximum administration rate: 100 mg/min Followed by PHENobarbital (LUMINAL) injection 15.6 mg (COMPLETED) 15.6 mg (rounded from 16 mg), Intravenous, EVERY 12 HOURS, 2 doses, First dose on Fri07/12/19 at 0930, Last dose on Fri07/12/19 at 2130, Administer over 5 Minutes, Maximum administration rate: 100 mg/min Followed by PHENobarbital (LUMINAL) injection 7.8 mg (COMPLETED)Jump to med 7.8 mg (rounded from 8 mg), Intravenous, EVERY 12 HOURS, 2 doses, First dose on Fri07/13/19 at 0930, Last dose on Fri07/13/19 at 2130, Administer over 5 Minutes, Maximum administration rate: 100 mg/min Group 2: buprenorphine-naloxone (SUBOXONE) 2-0.5 mg sublingual tablet 2 tablet () 2 tablet, Sublingual, ONCE, 1 dose, On Fri07/13/19 at 2100, DAY 1: To avoid precipitating withdrawal, the first dose of buprenorphine should be started only when objective signs of moderate withdrawal appear. Patient must score greater than or equal to 12 per the Clinical Opiate Withdrawal Scale (COWS) scoring tool., Routine, Is ongoing medication assisted treatment for OUD intended after initiating buprenorphine? Yes Followed by buprenorphine-naloxone (SUBOXONE) 2-0.5 mg sublingual tablet 1-2 tabletJump to med 1-2 tablet, Sublingual, EVERY 2 HOURS PRN, Starting on Fri07/13/19 at 2100, Until Fri07/15/19 at 1704, opioid withdrawal - uncomplicated, Day 1 1-2 tablet, Sublingual, EVERY 2 HOURS PRN. Per the Clinical Opiate Withdrawal Scale (COWS) scoring tool: For withdrawal score of 5-12, give 1 (2 mg-0.5 mg) tablet For withdrawal score of greater than 12, 2 (2 mg-0.5 mg) tablets - Contact provider if patient reaches a total daily dose of 12 mg of buprenorphine on day one of induction and continues to score on the COWS. Day 2 and 3 1-2 tablet, Sublingual, EVERY 2 HOURS PRN. Unless sedated, give the previous day's total dose of buprenorphine as a single dose at 8 am then: Per the Clinical Opiate Withdrawal Scale (COWS) scoring tool: For withdrawal score of 5-12, give 1 (2 mg-0.5 mg) tablet For withdrawal score of greater than 12, give 2 (2 mg-0.5 mg) tablets - Contact provider if patient reaches a total daily dose of 16 mg of buprenorphine on day two of induction and continues to score on the COWS., Routine, Patient is on buprenorphine? No Group 3: glucose (GLUTOSE) 40% oral gel (CANCELED) 15-30 g, Buccal, EVERY 30 MIN PRN, Starting on Fri07/05/19 at 1834, Until Fri07/14/19 at 1954, Low blood sugar, For BG 50-70 mg/dL: Oral treatment preferred:?? If able to drink, give 120 mL Juice or Regular (not diet) soda OR If NPO, give 15 gram glucose 40% oral gel massaged into buccal mucosa OR if unconscious or uncooperative, give 25 gram (250 mL) Dextrose 10% IV over 15 minutes per protocol OR, if no IV access, 1 mg Glucagon IM. For BG less than 50 mg/dL: Oral treatment preferred:?? If able to drink, give 240 mL Juice or Regular (not diet) soda OR If NPO, give 30 gram glucose 40% oral gel massaged in buccal mucosa OR if unconscious or uncooperative, give 25 gram (250 mL) Dextrose 10% IV over 15 minutes per protocol OR, if no IV access, 1 mg Glucagon IM. Recheck BG in 30 minutes. May repeat juice/soda, gel, dextrose or glucagon once per episode. For persistent hypoglycemia, consider longer-acting treatment for the duration of the active insulin. 1 tube contains 15 grams of glucose (net weight of tube = 37.5 grams., Routine Or dextrose 10% infusion (CANCELED)Jump to med 250 mL, at 1,000 mL/hr, Intravenous, EVERY 30 MIN PRN, Starting on Fri07/05/19 at 1834, Until Fri07/14/19 at 1954, For BG 50-70 mg/dL: Oral treatment preferred:?? If able to drink, give 120 mL Juice or Regular (not diet) soda OR If NPO, give 15 gram glucose 40% oral gel massaged into buccal mucosa OR if unconscious or uncooperative, give 25 gram (250 mL) Dextrose 10% IV over 15 minutes per protocol OR, if no IV access, 1 mg Glucagon IM. For BG less than 50 mg/dL: Oral treatment preferred:?? If able to drink, give 240 mL Juice or Regular (not diet) soda OR If NPO, give 30 gram glucose 40% oral gel massaged in buccal mucosa OR if unconscious or uncooperative, give 25 gram (250 mL) Dextrose 10% IV over 15 minutes per protocol OR, if no IV access, 1 mg Glucagon IM. Recheck BG in 30 minutes. May repeat juice/soda, gel, dextrose or glucagon once per episode. For persistent hypoglycemia, consider longer-acting treatment for the duration of the active insulin. Or glucagon (human recombinant) injection SolR 1 mg (CANCELED) 1 mg, Intramuscular, EVERY 30 MIN PRN, Starting on 07/05/19 at 1834, Until Fri07/14/19 at 1954, Low blood sugar, For BG 50-70 mg/dL: Oral treatment preferred:?? If able to drink, give 120 mL Juice or Regular (not diet) soda OR If NPO, give 15 gram glucose 40% oral gel massaged into buccal mucosa OR if unconscious or uncooperative, give 25 gram (250 mL) Dextrose 10% IV over 15 minutes per protocol OR, if no IV access, 1 mg Glucagon IM. For BG less than 50 mg/dL: Oral treatment preferred:?? If able to drink, give 240 mL Juice or Regular (not diet) soda OR If NPO, give 30 gram glucose 40% oral gel massaged in buccal mucosa OR if unconscious or uncooperative, give 25 gram (250 mL) Dextrose 10% IV over 15 minutes per protocol OR, if no IV access, 1 mg Glucagon IM. Recheck BG in 30 minutes. May repeat juice/soda, gel, dextrose or glucagon once per episode. For persistent hypoglycemia, consider longer-acting treatment for the duration of the active insulin., Routine documented in this encounter Additional Health Concerns Infection Onset Date Last Indicated Resolved Time Rule Out C. difficile 07/13/2019 07/13/20192018 3:12 PM EST documented as of this encounter Care Teams Forensic Social Worker Relationship Specialty Start Date End Date Adwoa Nixon MD [facility] [address] [place] [address] PCP - General 12/19/11 documented as of this encounter
--- OUTSIDE RECORDS SUMMARY | 2024-10-06 15:47 | XMS_ITS | Encounter Summary ---
[place] [address] Care Team Providers Care Tool Trouble Shooter Name Role Phone Adwoa Nixon MD Primary Care Provider [phone] Encounter Details Date Type Department Care Team (Late st Contact Info) Description 07/09/2019 [place] [id number] Unknown None Social History Tobacco Use Types Packs/Day Years [...] as of this encounter Plan of Treatment Pending Results Name Type Priority Associated Diagnoses Date /Time EKG 12 Lead ECG Routine 07/09/2019 8: 49 AM EST EKG 12 Lead ECG Routine 07/09/2019 8: 49 AM EST documented as of this encounter Procedures Procedure Name Priority Date/Time Associated Diagnosis Comments EKG 12-LEAD Routine 07/09/2019 8:49 AM EST EKG 12-LEAD Routine 07/09/2019 8:49 AM EST documented in this encounter Visit Diagnoses Not on filedocumented in this encounter Care Teams Tool Trouble Shooter Relationship Specialty Start Date End Date Adwoa Nixon MD [address] [place] [address] PCP - General 12/19/11 documented as of this encounter
--- OUTSIDE RECORDS SUMMARY | 2024-10-06 15:48 | XMS_ITS | Encounter Summary ---
Author Organization [facility] [place] [address] Care Team Providers Care Visiting Teacher Name Role Phone Matilde Ramirez MD Primary Care Provider [phone] Encounter Details Date Type Department Care Team (Late st Contact Info) Description 12/05/2011 10:23 AM EDT Anesthesia Event [place] [address] Marissa Powell MD Anesthesia Record Procedure Summary Procedure Name Responsible Anesthesiologist Anesthesia Start Time Anesthesia Stop Time REPAIR INITIAL INCISIONAL OR VENTRAL HERNIA REDUCIBLE (WRVU 11.92) (Abdomen) Marissa Powell MD 12/05/11 1023 12/05/11 1203 Events Date Time Event Comment 12/05/2011 0958 1023 Start 1203 Stop Meds * Agents No agents on file. * Blood No blood administrations on file. Lines, Drains, and Airways Type Details Placement Removal (RETIRED) Peripheral IV Line - Single Lumen 12/05/11; 0927; 12/05/11; 1316 12/05/11 0927 by Monica Parker RN 12/05/11 1316 by Lyudmila High RN Incision 12/05/11; 1052; abdomen; 04/29/22 (LDA cleanup utility RA#[id number]); 1715 (LDA cleanup utility RA#[id number]) 12/05/11 1052 by Marissa Novak RN 04/29/22 1715 by Tomasa Garduno documented in this encounter Social History Tobacco Use Types Packs/Day Years Used Date Smoking Tobacco: Every Day Cigarettes 1 16 Sex and Gender Information Value Date Recorded Sex Assigned at Not on file Gender Identity Not on file Sexual Orientation Not on file documented as of this encounter OR Notes * Anesthesia Postprocedure Evaluation - Marissa Powell MD - 12/05/2011 1:54 PM EDT Patient: Akshat Serrano Procedure(s) Performed: REPAIR INITIAL INCISIONAL OR VENTRAL HERNIA REDUCIBLE - *H&P DONE BY SURGEON*; IMPLANT MESH FOR INCISIONAL OR VENTRAL HERNIA REPAIR Patient location: PACU Post-op pain: Adequate analgesia Post-op nausea: no nausea or vomiting Last Vitals: Filed Vitals: 12/05/11 1237 BP: 113/51 Pulse: 67 Temp: Resp: 16 Post-op cardiovascular and respiratory status: is stable Level of consciousness: awake, alert and oriented Complications: no apparent complications and tolerated the procedure well Fluid Status: normal Pt discharged. No apparent anesthetic complications. * Anesthesia Preprocedure Evaluation - Marissa Powell MD - 12/05/2011 9:53 AM EDT Anesthesia Evaluation No hx of anesthetic complications (BMTs age 7) Airway Mallampati: II TM distance: >3 FB Neck ROM: full Dental Comment: Poor dentition - bonding left upper central incisor, crowns, several missing Pulmonary (-) recent URI ROS comment: Smoker - 1ppd x 16 yrs Cardiovascular Neuro/Psych (+) psychiatric history (Depression) Comments: ADHD Smokes marijuana daily GI/Hepatic/Renal (-) GERD Endo/Other Abdominal Other findings: 18 g PIV right hand Anesthesia Plan ASA 2 General with intravenous induction Pt prefers GA. Plan GAET. Anesthetic plan and risks discussed with patient. Use of blood products discussed with and consented by patient. Plan discussed with EVS ATTENDANT. documented in this encounter Miscellaneous Notes * Addendum Note - Daya Howard - 12/06/2011 1:17 PM EDT Addendum created 12/06/11 1317 by Daya Howard Modules edited:Anesthesia Events, Anesthesia Responsible Staff documented in this encounter Plan of Treatment Not on file documented as of this encounter Visit Diagnoses Not on filedocumented in this encounter Care Teams Visiting Teacher Relationship Specialty Start Date End Date Matilde Ramirez MD [address] [place] [address] PCP - General 11/19/11 12/18/11 documented as of this encounter
--- OUTSIDE RECORDS SUMMARY | 2024-10-06 15:48 | XMS_ITS | Encounter Summary ---
Author Organization [facility] Address [address] [place] [address] Care Team Providers Care Spaghetti Machine Operator Name Role Phone Unavailable Primary Care Provider Unavailabl e Encounter Details Date Type Department Care Team (Late st Contact Info) Description 07/16/[address] [facility] - [facility] Lab - Main [address] [address] Eddie Moore PA-C [address] [place] [phone] Social History Tobacco Use Types Packs/Day Years Used Date Smoking Tobacco: Never Assessed Sex and Gender Information Value Date Recorded Sex Assigned at Not on file Legal Sex Male 14:02 EST Gender Identity Not on file Sexual Orientation Not on file documented as of this encounter Plan of Treatment Not on file documented as of this encounter Procedures Procedure Name Priority Date/Time Associated Diagnosis Comments DRUGS OF ABUSE SCREEN, URINE - [facility] Routine 07/16/2019 15:25 EST HEPATITIS C AB W/REFLEX - [facility] Routine 07/16/2019 14:41 EST HIV 1/2 AB, P24 AG - [facility] Routine 07/16/2019 14:41 EST ETHYL ALCOHOL - [facility] Routine 07/16/2019 14:41 EST COMPLETE BLOOD COUNT WITH DIFFERENTIAL (AUTO) Routine 07/16/2019 14:41 EST HEPATITIS B SURFACE ANTIBODY Routine 07/16/2019 14:41 EST COMPREHENSIVE METABOLIC PANEL (CMP) Routine 07/16/2019 14:41 EST documented in this encounter Results * (ABNORMAL) DRUGS OF ABUSE SCREEN, URINE - [facility] (07/16/2019 15:25 EST) AMPHETAMINES NEG NEG 07/16/2019 15:41 [facility] BARBITURATES,UR - [facility] POS(A) NEG 07/16/2019 15:41 [facility] BENZODIAZEPINES NEG NEG 9 15:41 [facility] COCAINE,URINE - [facility] NEG NEG 07/16/2019 15:41 [facility] MAMP (METHAMPHETAMINES - [facility] NEG NEG 07/16/2019 15:41 [facility] MARIJUANA,URINE - [facility] POS(A) NEG 07/16/2019 15:41 [facility] MTD (METHADONE) - [facility] NEG NEG 07/16/2019 15:41 [facility] OPIATES,URINE - [facility] NEG NEG 07/16/2019 15:41 [facility] OXY (OXYCODONE) - [facility] NEG NEG 07/16/2019 15:41 [facility] PCP (PHENCYCLIDINE) - [facility] NEG NEG 07/16/2019 15:41 [facility] PROPOXYPHENE (PPX) - [facility] NEG NEG 07/16/2019 15:41 [facility] TRICYCLIC ANTIDEPRESSANTS - [facility] NEG NEG 07/16/2019 15:41 [facility] Comment: Drug Class ?Cutoff Concentration Amphetamines (AMP) ?500 ng/ml Barbiturates (BAR) ?200 ng/ml Benzodiazepines (BZO) ? 150 ng/ml Cocaine (ESDRAS) ? 150 ng/ml Methamphetamine (mAMP) ?500 ng/ml Methadone (MTD) ? 200 ng/ml Opiates (OPI) ? 100 ng/ml Oxycodone (OXY) ? 100 ng/ml Phencyclidine (PCP) ?25 ng/ml Tetrahydrocannabinol (THC) ? 50 ng/ml Propoxyphene (PPX) ?300 ng/ml Tricyclic antidepressants (TCA) ? 300 ng/ml This is a screening assay only, intended for use in clinical monitoring or management of patients. False positive or false negative results can occur. If confirmation testing is needed, please call the lab. Specimens are retained in the laboratory for 7 days. 07/16/2019 15:2 5 EST 07/16/2019 15:25 EST Eddie Moore PA-C URINALYSIS ORDERABLES Final Resu lt Performing Organization Address [facility] Co de Phone Number [facility] * HEPATITIS C AB W/REFLEX - [facility] (07/16/2019 14:41 EST) HEPATITIS C AB W/REFLEX - [facility] Negative 07/16/2019 15:52 EST [facility] Comment:Expected Values: Neg ative. 07/16/2019 14:4 1 EST 07/16/2019 14:45 EST Eddie Moore PA-C CHEMISTRY & BLOOD GAS ORDERABLES Final Result Performing Organization Address [facility] de Phone Number [facility] * HEPATITIS B SURFACE ANTIBODY (07/16/2019 14:41 EST) Pathologist [facility] Hep B Surface Ab, Qualitative 0.1 07/16/2019 15:52 [facility] Comment: ?Interpretative Guidelines < 5.00 mIU/mL = ?Negative Clinical Interpretation of Immune Status: Patient is considered to be not immune to infection with HBV. The results of this assay can be falsely lowered due to the consumption of Biotin. 07/16/2019 14:4 1 EST 07/16/2019 14:45 EST us Eddie Hare PA-C CHEMISTRY & BLOOD GAS ORDERABLES Final Result [facility] * HIV 1/2 AB, P24 AG - [facility] (07/16/2019 14:41 EST) Pathologist [facility] HIV 1/2 AB, P24 AG - [facility] Negative Negative 07/16/2019 15:43 [facility] 07/16/2019 14:4 1 EST 07/16/2019 14:45 EST us Eddie Hare PA-C CHEMISTRY & BLOOD GAS ORDERABLES Final Result Performing Organization Address [facility]/ZIP Co de Phone Number [facility] * ETHYL ALCOHOL - [facility] (07/16/2019 14:41 EST) Pathologist [facility] ETHYL ALCOHOL - [facility] <10.0 <10 mg/dL 07/16/2019 15:05 [facility] 07/16/2019 14:4 1 EST 07/16/2019 14:45 EST us Eddie Hare PA-C CHEMISTRY & BLOOD GAS ORDERABLES Final Result [facility] * (ABNORMAL) COMPREHENSIVE METABOLIC PANEL (CMP) (07/16/2019 14:41 EST) Pathologist [facility] Albumin % 3.8 3.4 - 4.9 g/dL 07/16/2019 15:05 [facility] ALKALINE PHOSPHATASE - [facility] 95 38 - 126 U/L 07/16/2019 15:05 [facility] BILIRUBIN TOTAL 0.8 0.2 - 1.3 mg/dL 07/16/2019 15:05 [facility] BUN - [facility] 18 10 - 26 mg/dL 07/16/2019 15:05 [facility] CALCIUM - [facility] 9.1 8.5 - 10.5 mg/dL 07/16/2019 15:05 [facility] Chloride 100 96 - 110 mmol/L 07/16/2019 15:05 [facility] CO2 Total 30 21 - 32 mEq/L 07/16/2019 15:05 [facility] CREATININE 0.62(L) 0.66 - 1.25 mg/dL 07/16/2019 15:05 [facility] eGFR >60 07/16/2019 15:05 [facility] Comment: Chronic renal impairment is defined as GFR <60 Multiply result by 1.210 for patients. Anion Gap 7 0 - 18 07/16/2019 15:05 [facility] GLUCOSE - [facility] 103(H) 70 - 100 mg/dL 07/16/2019 15:05 [facility] Potassium 4.6 3.5 - 5.0 mEq/L 07/16/2019 15:05 [facility] Sodium 137 136 - 145 mEq/L 07/16/2019 15:05 [facility] TOTAL PROTEIN - [facility] 7.0 6.2 - 8.2 gm/dL 07/16/2019 15:05 [facility] SGOT/AST - [facility] 75(H) 17 - 59 U/L 07/16/2019 15:05 [facility] SGPT/ALT - [facility] 145(H) 21 - 72 U/L 07/16/2019 15:05 [facility] 07/16/2019 14:4 1 EST 07/16/2019 14:45 EST us Eddie Moore PA-C CHEMISTRY & BLOOD GAS ORDERABLES Final Result [facility] * (ABNORMAL) COMPLETE BLOOD COUNT WITH DIFFERENTIAL (AUTO) (07/16/2019 14:41 EST) ABSOLUTE NEUTROPHIL COUN - [facility] 8.5 2.2 - 8.85 10e3/uL 07/16/2019 14:53 [facility] BASO # - [facility] 0.11 0.01 - 0.11 10e/uL 07/16/2019 14:53 [facility] BASO % - [facility] 1 0 - 2 % 07/16/2019 14:53 [facility] EOS # - [facility] 0.32 0.03 - 0.61 10e3/ul 07/16/2019 14:53 [facility] EOS % - [facility] 2 0 - 5 % 07/16/2019 14:53 [facility] GRAN % - [facility] 60.3 40 - 80 % 07/16/2019 14:53 [facility] HEMATOCRIT - [facility] 39.1(L) 39.5 - 50.2 % 07/16/2019 14:53 [facility] HEMOGLOBIN - [facility] 13.3(L) 13.8 - 17.3 g/dl 07/16/2019 14:53 [facility] IG# - [facility] 0.16 0 - 0.7 10e3/uL 07/16/2019 14:53 [facility] IG% - [facility] 1.1(H) 0 - 0.9 % 07/16/2019 14:53 [facility] LYMPH # - [facility] 4.0(H) 1.09 - 3.3 10e3/ul 07/16/2019 14:53 [facility] LYMPH% - [facility] 28.1 20 - 40 % 07/16/2019 14:53 [facility] MEAN CORPUSCULAR HGB - [facility] 29.0 27.6 - 33.0 pg 07/16/2019 14:53 [facility] MEAN CORPUSCULAR HGB CONC - [facility] 34.0 32.8 - 36.4 g/dL 07/16/2019 14:53 [facility] MEAN CELL VOLUME - [facility] 85.4 81 - 95 fl 07/16/2019 14:53 [facility] MONO # - [facility] 1.0(H) 0.1 - 0.8 10e3/uL 07/16/2019 14:53 [facility] MONO% - [facility] 7.4 0 - 12 % 07/16/2019 14:53 [facility] PLATELET COUNT 303 141 - 377 10e3/ul 07/16/2019 14:53 [facility] RED BLOOD COUNT - [facility] 4.58 4.36 - 5.78 10e3/ul 07/16/2019 14:53 [facility] RED CELL DISTRI WIDTH - [facility] 13.3 <14.2 % 07/16/2019 14:53 [facility] WHITE BLOOD COUNT - [facility] 14.1(H) 4.0 - 10.4 10e3/ul 07/16/2019 14:53 [facility] 07/16/2019 14:4 1 EST 07/16/2019 14:46 EST us Eddie Moore PA-C HEMATOLOGY & PF4 ORDERABLES Sherri l Result [facility] documented in this encounter Visit Diagnoses Not on filedocumented in this encounter
--- OUTSIDE RECORDS SUMMARY | 2024-10-06 15:48 | XMS_ITS | Encounter Summary ---
Author Organization [facility] Address [address] [place] [address] Care Team Providers Care Cotton Inspector Name Role Phone Unavailable Primary Care Provider Unavailabl e Encounter Details Date Type Department Care Team (Late st Contact Info) Description 10/20/2019 Lab Requisition [facility] Pathology & [place] [address] Unknown, Provider, MD Social History Tobacco Use Types Packs/Day Years [...] Procedure Name Priority Date/Time Associated Diagnosis Comments CHLAMYDIA/N. GONORRHOEAE AMPLIFIED NUCLEIC ACID Routine 10/20/2019 15:00 EST documented in this encounter Results * CHLAMYDIA/N. GONORRHOEAE AMPLIFIED RNA (10/20/2019 15:00 EST) Neisseria gonorrhoeae Result Negative Negative 10/21/2019 13:02 EST [facility] Chlamydia trachomatis Result Negative Negative 10/21/2019 13:02 EST [facility] Urine URINE / Unknown 10/20/2019 1 5:00 EST 10/20/2019 21:13 EST us Provider Unknown MICROBIOLOGY - GENERAL ORDER MERYL Final Result [facility] [address] [place] [address] documented in this encounter Visit Diagnoses Not on filedocumented in this encounter
--- OUTSIDE RECORDS SUMMARY | 2024-10-06 15:48 | XMS_ITS | Encounter Summary ---
Author Organization [facility] Address [address] [place] [address] Care Team Providers Care Blade Sharpener Name Role Phone Unavailable Primary Care Provider Unavailabl e Encounter Details Date Type Department Care Team (Late st Contact Info) Description 08/10/2021 Lab Requisition [facility] Pathology & Laboratory Medicine - [facility] [address] [place] [address] Outr Resulting Lab, Provider Social History Tobacco Use Types Packs/Day Years [...] Procedure Name Priority Date/Time Associated Diagnosis Comments ZZCOVID-19 TEST [facility] PCR Today 08/09/2021 11:50 EST COVID-19 TESTING Routine 08/09/2021 11:5 0 EST documented in this encounter Results * COVID-19 TEST [facility] PCR (08/09/2021 11:50 EST) Swab 08/09/2021 11:5 0 EST 08/10/2021 17:06 EST us Provider Outr Resulting Lab MICROBIOLOGY - GENER AL ORDERABLES Final Result [facility] [address] [place] [address] * COVID-19 TESTING (08/09/2021 11:50 EST) COVID-19 rt-PCR Result Negative Negative 08/11/2021 18:17 EST [facility] Comment: This test has not been FDA cleared or approved. This test has been authorized by FDA under an EUA for use by authorized laboratories. This test has been authorized only for detection of nucleic acid from 2019-nCoV, not for any other viruses or pathogens. This test is only authorized for the duration of the declaration that circumstances exist justifying the authorization of emergency use of in vitro diagnostic tests for detection and/or diagnosis of 2019-nCoV under section 564(b)(1) of Act, 21 U.S.C ?? 360bbb-3(b) (1), unless the authorization is terminated or revoked sooner. Negative results do not preclude 2019-nCoV infection and should not be used as the sole basis for treatment or other patient management decisions. Negative results must be combined with clinical observations, patient history, and epidemiological information. This test was developed and its performance characteristics determined by [facility]. It has not been cleared or approved by the US Food and Drug Administration. FDA does not require this test to go through premarket FDA review. This test is used for clinical purposes. It should not be regarded as investigational or for research. This laboratory is certified under the Clinical Laboratory Improvement Amendments (CLIA) as qualified to perform high complexity clinical laboratory testing. This test is based on the CDC COVID-19 Emergency Use Authorization (EUA) assay, with minor modification as defined by the FDA Performed on the [employer] 7 Flex RT-PCR System. Performing Lab [facility] 08/11/2021 18:17 EST [facility] Swab 08/09/2021 11:5 0 EST 08/10/2021 17:06 EST us Provider Outr Resulting Lab MICROBIOLOGY - GENER AL ORDERABLES Final Result [facility] [address] [place] [address] documented in this encounter Visit Diagnoses Not on filedocumented in this encounter
--- OUTSIDE RECORDS SUMMARY | 2024-10-06 15:48 | XMS_ITS | Encounter Summary ---
Author Organization [facility] Address [address] [place] [address] Care Team Providers Care Grease Rack Worker Name Role Phone Unavailable Primary Care Provider Unavailabl e Encounter Details Date Type Department Care Team (Late st Contact Info) Description 10/19/2021 Lab Requisition [facility] Pathology & Laboratory Medicine - [facility] [address] [place] [address] Outr Resulting Lab, Provider Social History Tobacco [...] Procedure Name Priority Date/Time Associated Diagnosis Comments SYPHILIS SEROLOGY Routine 10/18/2021 11: 00 EST documented in this encounter Results * SYPHILIS SEROLOGY (10/18/2021 11:00 EST) Syphilis Serology Negative Negative 10/22/2021 11:26 EST [facility] Blood VENOUS BLOOD / Unknown 10/18/2021 11:00 EST 10/19/2021 16:44 EST us Provider Outr Resulting Lab IMMUNOLOGY AND SEROL OGY ORDERABLES Final Result [facility] [address] [place] [address] documented in this encounter Visit Diagnoses Not on filedocumented in this encounter
--- OUTSIDE RECORDS SUMMARY | 2024-10-06 15:48 | XMS_ITS | Clinical Summary ---
Author Organization [facility] Address [address] [place] [address] Care Team Providers Care Family Medicine Physician Name Role Phone Unavailable Primary Care Provider Unavailabl e Social History Tobacco Use Types Packs/Day Years Used Date Smoking Tobacco: Never Assessed Sex and Gender Information Value Date Recorded Sex Assigned at Not on file Legal Sex Male 14:02 EST Gender Identity Not on file Sexual Orientation Not on file Plan of Treatment Health Maintenance Due Date Last Done Comments Hepatitis B Vaccine (1 of 3 - 19+ 3-dose series) 11/28/1998 COVID-19 Vaccine ( season) 2024 Hepatitis C Screen Completed 10/18/2021, 07/16/2019 Procedures Procedure Name Priority Date/Time Associated Diagnosis Comments HEPATITIS C AB W REFLEX TO HCV RNA BY PCR Routine 10/18/2021 11:00 EST from Last 3 Months or Most Recently Relevant to Health Maintenance Results * HEPATITIS C AB W REFLEX TO HCV RNA BY PCR (10/18/2021 11:00 EST) Hep C Antibody Negative Negative 10/22/2021 10:52 EST [facility] Blood VENOUS BLOOD / Unknown 10/18/2021 11:00 EST 10/19/2021 16:44 EST us Provider Outr Resulting Lab CHEMISTRY & BLOOD GA S ORDERABLES Final Result [facility] [address] [place] [address] from Last 3 Months or Most Recently Relevant to Health Maintenance
--- OUTSIDE RECORDS SUMMARY | 2024-10-06 15:48 | XMS_ITS | Encounter Summary ---
Author Organization [facility] Address [facility] [place] [address] Care Team Providers Care Hide Tanner Name Role Phone Adwoa Nixon MD Primary Care Provider [phone] Reason for Visit * Reason Comments Follow-up Encounter Details Date Type Department Care Team (Late st Contact Info) Description 12/23/2011 10:30 AM EDT Office [place] [phone] Meena Sauer APRN [facility] [place] [address] Hernia (Primary Dx) Discharge Disposition: Home Social History Tobacco Use [...] on file documented as of this encounter Patient Instructions * Patient Instructions* Meena Sauer APRN - 12/23/2011 4:55 PM EDT At this time, you may follow up with general surgery on an as needed basis feeling free to call us with any question or concern. documented in this encounter Progress Notes * Meena Sauer APRN - 12/23/2011 4:43 PM EDT Akshat De La Torre is here for hospital check. 12/05/11:umbilical hernia repair with mesh-Beronica Denies fevers chills or malaise. Eating -had czech food last night. Moving bowels and voiding without difficulty. Minimal pain, back to his normal activiites. Declines smoking cessation assistance No thanks, I got a packet on it the last time.. Exam: Well appearing, moves easily about the exam room and onto the exam table. Card:s1s2 rrr no cmt, Chest:cta ant post resp reg even and non labored. Abd:soft non tender non distended. Nicely healed supra-umbilical curvilinear incision with small palpable seroma, no erythema, fluctuance or tenderness Ext: warm, non tender min edema, calves are soft and non tender Impression/plan: unremarkable post discharge course Refuses smoking cessation assistance At this time there is no scheduled general surgery FU indicated. However, the patient knows to feelfree to call us should there be any question, concern, or should anything specific arise. documented in this encounter Plan of Treatment Not on file documented as of this encounter Visit Diagnoses Diagnosis Hernia of unspecified site of abdominal cavity without mention of obstruction or gangrene- Primary documented in this encounter Care Teams Hide Tanner Relationship Specialty Start Date End Date Adwoa Nixon MD [address] [place] [address] PCP - General 12/19/11 documented as of this encounter
--- OUTSIDE RECORDS SUMMARY | 2024-10-06 15:48 | XMS_ITS | Encounter Summary ---
Author Organization [facility] Address [facility] [place] [address] Care Team Providers Care Rehabilitation Services Coordinator Name Role Phone Philippe Ramirez MD Primary Care Provider [phone] Reason for Visit * Reason Comments Post-op Problem Encounter Details Date Type Department Care Team (Late st Contact Info) Description 12/10/2011 12:22 AM EDT - 12/10/2011 12:03 PM EDT Emergency [address] [place] [address] Nick Manley MD [facility] [place] [address] Gutierrez Parker MD [facility] [place] [address] Post-operative wound abscess Discharge Disposition: Home Social History Tobacco Use [...] Sign Reading Time Taken Comments Blood Pressure 122/61 12/10/2011 7:30 AM EDT Pulse 54 12/10/2011 7:30 AM EDT Temperature 37 ??C (98.6 ??F) 12/10/2011 7:30 AM EDT Respiratory Rate 18 12/10/2011 7:30 AM EDT Oxygen Saturation 98% 12/10/2011 7:30 AM EDT Inhaled Oxygen Concentration - - Weight 79.4 kg (175 lb) 12/09/2011 9:29 PM EDT Height 172.7 cm (5' 8) 12/10/2011 1:51 AM EDT Body Mass Index 26.61 12/09/2011 9:29 PM EDT documented in this encounter Medications at Time of Discharge Medication Sig Dispensed Refills Start Date End Date ampicillin (PRINCIPEN) 250 mg capsule Take 1 capsule by mouth 4 times daily for 5 days. 20 capsule 0 12/10/2011 12/15/2011 docusate sodium (COLACE) 100 mg capsule Take 1 capsule by mouth 2 times daily as needed for Constipation for 30 days. 60 capsule 1 12/10/2011 01/09/2012 OXYcodone-acetaminop hen (PERCOCET) 5-325 mg per tablet Take 1 tablet by mouth every 6 hours as needed for Pain for 2 days. 10 tablet 0 12/10/2011 12/12/2011 OXYcodone-acetaminop hen (PERCOCET) 5-325 mg per tablet Take 1 tablet by mouth every 4 hours as needed for Pain. 10 tablet 0 12/05/2011 07/15/2019 documented as of this encounter Progress Notes * Ashly Nobles RN - 12/10/2011 12:00 PM EDT Discharge instructions/meds reviewed w/pt--all questions answered. Discharged ambulatory w/friend to home via car. * Monica Self RN - 12/10/2011 2:17 AM EDT Patient admitted to 404B from ED via stretcher. AVSS. States he had a BM in ED before coming to floor and feels much better. Lungs clear. Abdomen soft with + bowel sounds. Steristrips intact at umbilicus with ecchymosis noted inferiorly. Denies any pain at present. Normal saline hung via right ac hep cap at 100/hr. Oriented to room and call [place]. Will continue to monitor. documented in this encounter ED Notes * Reny Veliz RN - 12/10/2011 12:50 AM EDT Spoke with girlfriend regarding pt's alertness. Girlfriend states he is normal to her. * Reny Veliz RN - 12/10/2011 12:42 AM EDT Girlfriend is at bedside. * Reny Veliz RN - 12/09/2011 11:18 PM EDT Pt resting but is easily awakened. He is sleepy and closes eyes while talking. He will open them upon request and answers appropriately. * Reny Veliz RN - 12/09/2011 10:41 PM EDT Pt is resting without complaints. * Nick Manley MD - 12/09/2011 10:38 PM EDT Chief Complaint Patient presents with ??? Post-op Problem HPI I saw this patient at 10:30 PM. He is 4 days status post umbilical hernia repair. He was seen tonight at [facility] for increasing pain. A CT scan was performed there which revealed a 3 x3 subcentimeter subcutaneous abscess. He was referred here to be seen by surgery. He has not had fevers or chills. He has had nausea but no vomiting. He feels that at least some of his discomfort is secondary to constipation. Specifically he has not had a bowel movement since before surgery. He took some of a friend's morphine for pain relief before being seen. 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 He states it lasted for one to 2 minutes. He had associated palpitations but no shortness of breath, diaphoresis, nausea, vomiting. He is completely asymptomatic at this time. He denies any cocaine use. Relevant PMH: Diabetes or hypertension Relevant ROS: as above Relevant medications: no anticoagulants Relevant Family History: N/A Relevant Social History: Yes tobacco and pot, No alcohol, cocaine or other illicits No Known Allergies Review of Systems Constitutional: Negative for fever and chills. HENT: Negative for sore throat and trouble swallowing. Eyes: Negative for pain and discharge. Respiratory: Negative for shortness of breath. Cardiovascular: Positive for chest pain. Negative for leg swelling. Gastrointestinal: Positive for nausea, abdominal pain and constipation. Negative for vomiting, diarrhea and blood in stool. Genitourinary: Negative for dysuria, frequency and flank pain. Musculoskeletal: Negative for joint swelling and arthralgias. Skin: Negative for rash and wound. Neurological: Negative for weakness, numbness and headaches. Physical Exam Nursing note and vitals reviewed. Constitutional: He is oriented to person, place, and time. He appears well- developed and well-nourished. No distress. HENT: Head: Atraumatic. Mouth/Throat: Oropharynx is clear and moist. Eyes: Conjunctivae are normal. No scleral icterus. Neck: Neck supple. No edema present. Cardiovascular: Normal rate, regular rhythm and normal heart sounds. No murmur heard. Pulses: Posterior tibial pulses are 2+ on the right side, and 2+ on the left side. Pulmonary/Chest: Effort normal and breath sounds normal. No accessory muscle usage or stridor. No respiratory distress. He has no wheezes. He has no rhonchi. He has no rales. Abdominal: Soft. Bowel sounds are normal. He exhibits no distension and no mass. There is no hepatosplenomegaly. He has no rebound, no guarding and no CVA tenderness. Umbilical wound appears clean dry and intact. Surrounding ecchymosis but no erythema. No palpable fluctuance on my exam. He is mild discomfort to palpation throughout but attributes this to constipation. No rebound, guarding. Musculoskeletal: He exhibits no edema and no tenderness. Neurological: He is alert and oriented to person, place, and time. No cranial nerve deficit. Skin: Skin is warm and dry. No rash noted. He is not diaphoretic. Psychiatric: He has a normal mood and affect. His behavior is normal. Procedures MDM ED Course: Records reviewed by me: Account at outside hospital 14, lipase 788, urinalysis negative, CT positive 3x3 cm umbilical abscess as above. Labs reviewed by me: as above Imaging reviewed by me: as above EKG reviewed by me: NSR, no ST changes, no old Proceedures: IV meds: Other medications given: None IV fluids: NS Press Washer: Surgery to see ([id number]) Impression: 1) postoperative abscess. No evidence of additional acute intra-abdominal process. 2) constipation 3) transient chest pain. In the absence of cardiac risk factors with transient pain and normal EKG I suspect this was related to anxiety and recent drug use and do not think it represents cardiac ischemia, dissection, pulmonary embolism, other worrisome etiology. Plan: Disposition as per general surgery Nick Manley MD 12/10/11 0018 * Reny Veliz RN - 12/09/2011 10:01 PM EDT Pt presents from outside hospital in private vehicle. Report from other hospital states that pt hasprobable abscess at the level of his umbilicus. Pt rates his pain 5/10 and tolerable after receiving Morphine 2 mg prior to arrival. documented in this encounter Miscellaneous Notes * Discharge Summary - Natalie Danielle PA - 12/10/2011 11:09 AM EDT GENERAL SURGERY Inpatient - Discharge Summary Patient Name: Akshat Serrano Patient Age: 31 y.o. Birthdate: 1980 Admit date: 12/10/2011 Discharge date: 12/10/2011 Attending Physician: Gutierrez Parker MD Diagnosis This Visit: Abdominal Pain HPI and Hospital Course: Akshat Serrano is a 31 y.o. male admitted on 12/10/2011 12:22 AM with abdominal pain s/p ventral hernia repair (5 days prior to admission) with an Atrium mesh plug who had initially presented to [facility]. He had not had a bowel movement since before the surgery butwas passing small amounts of flatus. Denied fevers or chills. Had had some nausea but no emesis. OSH CT scan was reviewed and there was air in the subcutaneous tissues and in the region of the mesh plug; there was no free intra-abdominal air or fluid seen. WBC was 13 and lipase was 788 with normal amylase, AST, ALT and bilirubins. he was admitted to [facility] for observation of suspected constipation.Prior to transfer to the floor from the Emergency Department, he had a single bowel movement, and reported significant pain relief. He progressed in stable fashion on the floor, reporting flatus, with no abdominal pain, nausea or emesis. He remained afebrile and his white count was within normal limits. Once he was tolerating a diet, had adequate pain control, and was voiding at baseline, he was deemed medically appropriate for discharge to home, with a 5- day course of antibiotics. Neuro Pain Control: OxyIR Activity As tolerated CV Hemodynamically stable Pulm Stable. SpO2: [96 %-98 %] on RA. IS encouraged. GI Diet: Regular NBOs: ordered No garcia. FEN IVF: HLIV Heme DVT prophylaxis: SCDs in place. ID Afebrile. No infectious disease process identified. Endo No SSIs. Dispo CRC: Kedar Subramanian Consults None Updated Allergies/ADRs: No Known Allergies Operations/Major Procedures: Operations: * No surgery found * * No surgery found *: Pending Lab Data at Discharge: NONE Condition at Discharge: STABLE Imaging/Studies: 12/08: REQUEST FOR 2ND READ CT ABDOMEN & PELVIS: Impression 1. A 4 cm loculated gas containing intraperitoneal fluid collection is present at the level of the umbilicus. The loculated fluid collection extend through the linea alba into the subcutaneous soft tissue. These findings are consistent with a loculated intraperitoneal abscess or gas containing hematoma or seroma. The adjacent small bowel does not appear to directly communicate with the this abscess as there is no contrast within it. Given the technique of this study, it is difficult to determine if the adjacent transverse colon communicates with its loculated abscess. 2. Low attenuation liver lesion which is too small to characterize. 12/08 EKG: INTERPRETATION Preliminary Marked sinus bradycardia Abnormal ECG No previous ECGs available Discharge Examination: Last value Range last 12 hrs Temperature Temp: 37 ??C (98.6 ??F) Temp: [36.8 ??C (98.2 ??F)-37 ??C (98.6 ??F)] Heart Rate Heart Rate: 54 Heart Rate: [50-70] Blood Pressure BP: 122/61 mmHg BP: (104-122)/(46-68) Respiratory Rate Resp: 18 Resp: [14-18] SpO2 SpO2: 98 % SpO2: [96 %-98 %] on RA Intake/Output Summary (Last 24 hours) at 12/10/11 1146 Last data filed at 12/10/11 1100 Gross per 24 hour Intake 891 ml Output 576 ml Net 315 ml Physical Exam: General: NAD, resting comfortably, pleasant, conversant HEENT: EOMI, anicteric sclerae CVS: RRR, no m/r/g Pulm: CTAB anteriorly, no wheezes or rhonchi Abd: soft, nontender, BSx4, nondistended, steristrips intact at umbilicus with ecchymosis noted inferiorly Skin: warm, dry Ext: WWP, cap refill <2sec Neuro: CN II-XII grossly intact, nonfocal, moving all four extremities spontaneously Discharge to: HOME Discharge Conditions/Prognosis: STABLE Discharge Medications: The following medications have been prescribed for you. If you notice any adverse reactions to your medications, please contact your primary care physician immediately or go tothe nearest Emergency Department. Medications prior to admission that will be resumed at discharge: Medication Sig Dispense Refill ??? OXYcodone-acetaminophen (PERCOCET) 5-325 mg per tablet Take 1 tablet by mouth every 4 hours as needed for Pain. 10 tablet 0 New medications prescribed at discharge: Medication Sig Dispense Refill ??? ampicillin (PRINCIPEN) 250 mg capsule Take 1 capsule by mouth 4 times daily for 5 days. 20 capsule 0 ??? docusate sodium (COLACE) 100 mg capsule Take 1 capsule by mouth 2 times daily as needed for Constipation for 30 days. 60 capsule 1 Follow-up Care & Plans: For questions, orders or appointments related to your continuing care after your discharge, you or your provider should contact the physician that managed that part of your care. Trauma Surgery - [phone]: Follow-up with Meena Clements in 2-3 weeks. PCP: PHILIPPE RAMIREZ MD, Scheduled Appointments: The following appointments have been scheduled on your behalf: Future Appointments Date Time Provider Department Center 12/23/2011 10:30 AM 134[facility] Outpatient Services/Studies: No discharge procedures on file. Patient Instructions: Diet: Regular, no restrictions. Activity Level Allowed: As directed by Orthopaedics, Physical Therapy &/or Occupational Therapy. Driving: No driving. Please ask about driving and work/school restrictions at your follow-up appointmnent. Shower/Bath: You may shower. Please do not soak or submerge wounds and pat dry any wounds/incision sites after shower. Injury Care: Continue to use assistive device provided to you by healthcare team and perform dressing changes as directed. Call your doctor if: Please call your doctor immediately or go to an Emergency Department if you notice worsening pain not controlled by pain medications, uncontrolled headache, vision changes, chest pain, difficulty breathing, persistent nausea and vomiting, new redness or swelling in any extremities, new onset weakness or changes in sensation, or for any fevers greater than 101.3 F. Special Instructions Given to Patient at Discharge:. An After Visit Summary was printed and given to the patient. Provider Instructions None General Instructions None Your care was managed by the Trauma and Acute Care Surgery Team at [facility]. If you have any questions or concerns, please feel free to contact us. Provider Contact Information: General Surgery Clinic: [facility] (after business hours): CC: MD Kylah TEJEDA, FATUMA Signed: NATALIE DANIELLE PA-C Department of Surgery 12/10/2011 * Miscellaneous - Provider, Jeovany - 12/10/2011 2:41 AM EDT * Consult Note - Gutierrez Parker MD - 12/09/2011 10:42 PM EDT Images from the original note were not included. General Surgery - Consult Note Patient Name: Akshat Serrano : [id number] MR#: [id number] 12/09/2011 Hospital Day 1 day Problem List: There are no hospital problems to display for this patient. Active Non-Hospital Problems Diagnoses ??? Depression ??? ADHD (attention deficit hyperactivity disorder) ??? Active smoker ??? Herpes Past Medical and Surgical History: Past Medical History Diagnosis Date ??? No known problems Past Surgical History Procedure Date ??? Repair incisional hernia, reducible 12/05/2011 REPAIR INITIAL INCISIONAL OR VENTRAL HERNIA REDUCIBLE performed by CARLOS ENRIQUE LOCO III at [facility] MAIN OR ??? Implant mesh hernia repair/debridement closure 12/05/2011 IMPLANT MESH FOR INCISIONAL OR VENTRAL HERNIA REPAIR performed by CARLOS ENRIQUE LOCO III at [facility] MAIN OR ??? Hernia repair Allergies: No Known Allergies Prior to Admission Medications: (Not in a hospital admission) Current Hospital Medications: No current [facility]-ordered facility-administered medications on file. Current outpatient prescriptions ordered in [facility] Medication Sig Dispense Refill ??? OXYcodone-acetaminophen (PERCOCET) 5-325 mg per tablet Take 1 tablet by mouth every 4 hours as needed for Pain. 10 tablet 0 Family History: No family history on file. Social History and Habits: History Social History ??? Marital Status: Single Spouse Name: N/A Number of Children: N/A ??? Years of Education: N/A Occupational History ??? Not on file. Social History Main Topics ??? Smoking status: Current Everyday Smoker -- 1.0 packs/day for 16 years Types: Cigarettes ??? Smokeless tobacco: Not on file ??? Alcohol Use: No ??? Drug Use: No ??? Sexually Active: Other Topics Concern ??? Not on file Social History Narrative ??? No narrative on file ID: I have been asked to see the patient at the request of Dr. Manley. Reason for Consult: Umbilical wound Infection History of Present Illness: HPI Mr. Serrano is a 31M s/p umbilical hernia repair with mesh (extra-large Atrium plug mesh) on 12/05/[address] Loco presented to [facility] emergency room for abdominal pain, constipation andfor possible abscess at the umbilicus. Pt refers not having a BM in 5 days which actually prompted his visit to the ED in [facility]. He ran out or narcotics and borrowed 15 mg this afternoon and that helped the pain. He has been passing gas, denies fevers chills or redness around the incision, his OSH laba re remerkable for a WBC 13K and Lipase 788. He referred CP and left arm pain for which an EKG was obtained in the ED. Review of Systems: Review of Systems Constitutional: Negative. HENT: Negative. Eyes: Negative. Respiratory: Negative. Cardiovascular: Positive for chest pain. Gastrointestinal: Positive for constipation and abdominal distention. Genitourinary: Negative. Musculoskeletal: Negative. Skin: Negative. Neurological: Negative. Hematological: Negative. Psychiatric/Behavioral: Negative. All other systems reviewed and are negative. Physical Exam: Last Set of Vitals and range of vitals over past 24 hours: Last value Range last 24 hrs Temperature Temp: 36.4 ??C (97.5 ??F) Temp: [36.4 ??C (97.5 ??F)] Heart Rate Heart Rate: 79 Heart Rate: [79] Blood Pressure BP: 148/62 mmHg BP: (148)/(62) Respiratory Rate Resp: 18 Resp: [18] SpO2 SpO2: 97 % SpO2: [97 %] No intake or output data in the 24 hours ending 12/10/11 0002 Physical Exam Constitutional: He is oriented to person, place, and time. He appears well- developed and well-nourished. HENT: Head: Normocephalic and atraumatic. Eyes: EOM are normal. Pupils are equal, round, and reactive to light. Right conjunctiva is injected. Cardiovascular: Normal rate, regular rhythm and normal heart sounds. Exam reveals no gallop and no friction rub. No murmur heard. Pulmonary/Chest: Effort normal and breath sounds normal. Abdominal: Soft. Bowel sounds are normal. He exhibits distension. No tenderness. He has no rebound,no pain at McBurney's point and no Huetras's sign. No hernia. Musculoskeletal: Normal range of motion. Neurological: He is alert and oriented to person, place, and time. Laboratory (Last 24 Hours): No results found for this or any previous visit (from the past 24 hour(s)). Radiology: CT: A/P Subcutaneous emphysema and infiltration around the umbilicus, 3.7x3.2 collection with air in the anterior midline of the peritoneal cavity. Assessment Mr. Serrano is a 31M s/p umbilical hernia repair with mesh on 12/05/[address] Loco presentedto [facility] emergency room for abdominal pain, constipation and for possible abscess at the umbilicus. He oes not endrose abdominal pain Recommendations: ?? Admit for observation ?? Repeat Am labs ?? Bowel regimen with stool softeners daily ALO RIOJAS MD 12/10/2011 Surgery Attending Addendum: I have seen this patient and agree with the above note with the following additions and/or modifications. 31 year old gentleman now five days out from a ventral hernia repair with Atrium mesh plug who presented to [facility] today with abdominal pain. He states that he has not had a bowel movement since before surgery but is passing small amounts of flatus. Denies fevers or chills. Has had some nausea but no emesis. Reports the pain is diffuse but worse in his lower abdomen. On exam he appears a little uncomfortable but in no distress. He is afebrile with unremarkable vital signs. Heart is regular, lungs are clear bilateral. Abdomen is moderately distended but soft, diffuse tender to palpation worse in the lower quadrant and tender at the site of repair. He is not tender to percussion. The supra-umbilical wound is intact with some inferior ecchymosis but no erythema or drainage. CT scan was reviewed and there is air in the subcutaneous tissues and in the region of the mesh plug. There is no free intra-abdominal air or fluid seen. WBC was 13 and lipase was 788 with normal amylase, AST, ALT and bilirubins. A/P: 31 year old man with abdominal pain. CT scan findings seem atypical with the amount of air seen in the subcutaneous tissue and Mesh at this point in his recovery. No objective evidence of wound infection on exam. Isolated lipase elevation is also unusual but no epigastric pain or notable RUQ pain, possibly bowel related. Will admit for observation and repeat labs in the morning to include WBC and LFTs. May need enema for constipation if oral CT contrast does not stimulate bowel activity. * Miscellaneous - Provider, Scanning - 12/09/2011 10:10 PM EDT * ED Triage - Mikayla Mcfarland RN - 12/09/2011 9:30 PM EDT Pt was sent from OSH for abdominal abscess following hernia repair 12/05/11. Pt reports receiving morphine IV prior to coming to [facility] by private vehicle. Pt reports pain at 5/10 and appears somewhat tired during triage documented in this encounter Plan of Treatment Not on file documented as of this encounter Procedures Procedure Name Priority Date/Time Associated Diagnosis Comments REQUEST FOR 2ND READ CT ABDOMEN AND PELVIS Routine 12/09/2011 11:40 PM EDT EKG 12-LEAD STAT 12/09/2011 11:16 PM EDT documented in this encounter Results * REQUEST FOR 2ND READ CT ABDOMEN & PELVIS (12/09/2011 11:40 PM EDT) Anatomical Region Laterality Modality Abdomen, Pelvis Other 12/09/2011 11:4 0 PM EDT Narrative 12/11/2011 1:41 PM EDT History The ordering physician, Dr. Blas Riojas believes that the reinterpretation of this outside study may alter patient care. The patient is status post umbilical hernia repair on 12/05/2011 with recent onset of abdominal pain. ??Question abdominal wall abscess. Technique This is an outside abdomen and pelvis CT with intravenous contrast from [facility] performed on 12/09/2011. ?? Axial 5 mm thick slices are provided extending from the base of the lungs through the inferior pubic rami. Comparison None. Findings Limited views of the lung bases are clear. The gallbladder, adrenal glands, kidneys, pancreas, and spleen are normal in appearance. A 4 mm, too small to characterize, focus of low attenuation is present in the left lobe of the liver. There is no intraperitoneal free fluid or free air. ??An approximately 4 cm loculated intraperitoneal fluid and air collection is present at the level of the umbilicus. ??A portion of this fluid collection extends through the linea alba and extends laterally to the right of the umbilicus. ??Several foci of gas are also present within the subcutaneous tissue at the umbilicus. ??No contrast is contained within this loculated fluid collection. ??Several loops of contrast filled small bowel lie lateral and inferior to the intraperitoneal loculated fluid collection and demonstrate no clear connection to it. ??A segment of stool-filled transverse colon without contrast in it lies just superior to this loculated fluid collection. ??Given the 5 mm thick slices and the absence of coronal re-formatted images, it is difficult to determine if this segment of transverse colon communicates with the loculated fluid collection. ??Contrast reaches the distal ileum. ?? The bladder is distended with urine and normal in appearance. ??The abdominal aorta is normal in its caliber and course. ??There is no abdominal lymphadenopathy. The bones are normal. Impression ? 1. A 4 cm loculated gas containing intraperitoneal fluid collection is present at the level of the umbilicus. On further review with the surgeons, this likely represents the plug mesh used for the hernia repair. A small amount of fluid appears to extend through the linea alba into the subcutaneous soft tissues, and there is also some gas in the subcutaneous soft tissues. The amount of gas seems somewhat unusual at five days postoperative, and superinfection is considered. The adjacent small bowel does not appear to directly communicate with this as there is no contrast within it. Given the technique of this study, communication with the adjacent transverse colon is difficult to determine. ? 2. Low attenuation liver lesion, which is too small to characterize. Film and interpretation reviewed by the attending Procedure Note Soniya Chavez MD - 12/11/2011 History The ordering physician, Dr. Blas Riojas believes that the reinterpretationof this outside study may alter patient care. The patient is status post umbilical hernia repair on 12/05/2011 withrecent onset of abdominal pain. Question abdominal wall abscess. Technique This is an outside abdomen and pelvis CT with intravenous contrast from [facility] performed on 12/09/2011. Axial 5 mmthick slices are provided extending from the base of the lungs through theinferior pubic rami. Comparison None. Findings Limited views of the lung bases are clear. The gallbladder, adrenal glands, kidneys, pancreas, and spleen are normalin appearance. A 4 mm, too small to characterize, focus of low attenuation is present in the left lobe of the liver. There is no intraperitoneal free fluid or free air. An approximately 4 cm loculated intraperitoneal fluid and air collection is present at the levelof the umbilicus. A portion of this fluid collection extends through thelinea alba and extends laterally to the right of the umbilicus. Several foci ofgas are also present within the subcutaneous tissue at the umbilicus. Nocontrast is contained within this loculated fluid collection. Several loops ofcontrast filled small bowel lie lateral and inferior to the intraperitonealloculated fluid collection and demonstrate no clear connection to it. A segment of stool-filled transverse colon without contrast in it lies just superior tothis loculated fluid collection. Given the 5 mm thick slices and the absenceof coronal re-formatted images, it is difficult to determine if this segmentof transverse colon communicates with the loculated fluid collection.Contrast reaches the distal ileum. The bladder is distended with urine and normal in appearance. Theabdominal aorta is normal in its caliber and course. There is no abdominal lymphadenopathy. The bones are normal. Impression 1. A 4 cm loculated gas containing intraperitoneal fluid collectionis present at the level of the umbilicus. On further review with thesurgeons, this likely represents the plug mesh used for the hernia repair. A smallamount of fluid appears to extend through the linea alba into the subcutaneoussoft tissues, and there is also some gas in the subcutaneous soft tissues. The amount of gas seems somewhat unusual at five days postoperative, and superinfection is considered. The adjacent small bowel does not appear to directly communicate with this as there is no contrast within it. Giventhe technique of this study, communication with the adjacent transverse colonis difficult to determine. 2. Low attenuation liver lesion, which is too small tocharacterize. Film and interpretation reviewed by the attending Alo Riojas MD IMG OUTSIDE INTERPR ETATION ORDERABLES * EKG 12 Lead (12/09/2011 11:16 PM EDT) Ventricular rate 48 BPM MUSE SYSTEM Atrial Rate 48 BPM MUSE SYSTEM P-R Interval 150 ms MUSE SYSTEM QRS Duration 102 ms MUSE SYSTEM Q-T Interval 446 ms MUSE SYSTEM QTC Calculated (Bezet) 398 ms MUSE SYSTEM Calculated P [place] 2 degrees MUSE SYSTEM Calculated R [place] 22 degrees MUSE SYSTEM Calculated T [place] 20 degrees MUSE SYSTEM INTERPRETATION Marked sinus bradycardia Abnormal ECG No previous ECGs available Confirmed by MD Calvillo Douglas ([id number]) on 12/10/2011 3:39:56 PM MUSE SYSTEM 12/09/2011 11:1 6 PM EDT 12/10/2011 3:39 PM EDT Nick Manley MD ECG ORDERABLES MUSE SYSTEM documented in this encounter Visit Diagnoses Diagnosis Post-operative wound abscess Other postoperative infection documented in this encounter Administered Medications Inactive Administered Medications - up to 3 most recent administrations Medication Order MAR Action Action Date Dose Rate Site docusate sodium (COLACE) oral liquid 50-200 mg 50-200 mg, Oral, 2 TIMES DAILY, First dose on Fri12/10/11 at 0215, Until Discontinued, Start with 1 tablet or liquid equivalent orally twice daily and titrate up to achieve: 1. one bowel movement at least every 48 hours, AND 2. without straining, Routine Given 12/10/2011 8:28 AM EDT 200 mg sennosides (SENOKOT) 8.8 mg/5 mL oral syrup 8.8-35.2 mg 8.8-35.2 mg, Oral, 2 TIMES DAILY, First dose on Fri12/10/11 at 0215, Until Discontinued, Start with 1 tablet or liquid equivalent orally twice daily and titrate up to achieve: 1. One bowel movement at least every 48 hours, AND 2. Without straining, Routine Given 12/10/2011 8:29 AM EDT 8.8 mg sodium chloride 0.9 % flush 5 mL 5 mL, Intravenous, EVERY 12 HOURS, First dose on Fri12/10/11 at 0215, Until Discontinued Given 12/10/2011 2:15 AM EDT 5 mLs sodium chloride 0.9% infusion 100 mL/hr, Intravenous, CONTINUOUS, Starting on Fri12/10/11 at 0100, Until Fri12/10/11 at 1407 New Bag 12/10/2011 1:56 AM EDT 100 mL/hr 100 mL/hr New Bag 12/10/2011 12:44 AM EDT 100 mL/hr 100 mL/hr documented in this encounter Active and Recently Administered Medications Times are shown in EDT. Scheduled Medication Order 12/08/2011 12/09/2011 12/10/2011 docusate sodium (COLACE) oral liquid 50-200 mg (CANCELED)(Linked Group 1) 50-200 mg, Oral, 2 TIMES DAILY, First dose on Fri12/10/11 at 0215, Until Discontinued, Start with 1 tablet or liquid equivalent orally twice daily and titrate up to achieve: 1. one bowel movement at least every 48 hours, AND 2. without straining, Routine 0215 (Not Given - Pr ovider: Monica Self RN - Reason: See comment - Comment: had mike)0828 (Given - Provider: Ashly Nobles RN) sennosides (SENOKOT) 8.8 mg/5 mL oral syrup 8.8-35.2 mg (CANCELED)(Linked Group 1) 8.8-35.2 mg, Oral, 2 TIMES DAILY, First dose on Fri12/10/11 at 0215, Until Discontinued, Start with 1 tablet or liquid equivalent orally twice daily and titrate up to achieve: 1. One bowel movement at least every 48 hours, AND 2. Without straining, Routine 0215 (Not Given - Pr ovider: Moinca Self RN - Reason: See comment - Comment: eileen mckeon)0829 (Given - Provider: Ashly Nobles RN) sodium chloride 0.9 % flush 5 mL (CANCELED) 5 mL, Intravenous, EVERY 12 HOURS, First dose on Fri12/10/11 at 0215, Until Discontinued 0215 (Given - Provid er: Monica Self RN) Continuous Medication Order 12/08/2011 12/09/2011 12/10/2011 sodium chloride 0.9% infusion (CANCELED) 100 mL/hr, Intravenous, CONTINUOUS, Starting on Fri12/10/11 at 0100, Until Fri12/10/11 at 1407 0044 (New Bag - Prov ider: Reny Veliz, ROBBIN)0156 (New Bag - Provider: Monica Self RN) Linked Groups Order Group 1: docusate sodium (COLACE) oral liquid 50-200 mg (CANCELED)Jump to med 50-200 mg, Oral, 2 TIMES DAILY, First dose on Fri12/10/11 at 0215, Until Discontinued, Start with 1 tablet or liquid equivalent orally twice daily and titrate up to achieve: 1. one bowel movement at least every 48 hours, AND 2. without straining, Routine And sennosides (SENOKOT) 8.8 mg/5 mL oral syrup 8.8-35.2 mg (CANCELED)Jump to med 8.8-35.2 mg, Oral, 2 TIMES DAILY, First dose on Fri12/10/11 at 0215, Until Discontinued, Start with 1 tablet or liquid equivalent orally twice daily and titrate up to achieve: 1. One bowel movement at least every 48 hours, AND 2. Without straining, Routine documented in this encounter Care Teams Rehabilitation Services Coordinator Relationship Specialty Start Date End Date Philippe Ramirez MD [address] [place] [address] PCP - General 11/19/11 12/18/11 documented as of this encounter
--- OUTSIDE RECORDS SUMMARY | 2024-10-06 15:48 | XMS_ITS | Encounter Summary ---
Author Organization [facility] Address [address] [place] [id number] Care Team Providers Care Delinquent Tax Collector Name Role Phone Unavailable Primary Care Provider Unavailabl e Encounter Details Date Type Department Care Team (Late st Contact Info) Description 10/19/2021 Lab Requisition [facility] Pathology & Laboratory Medicine - [address] [address] Outr Resulting Lab, Provider Social History Tobacco [...] Procedure Name Priority Date/Time Associated Diagnosis Comments HIV 1/2 ANTIGEN AND ANTIBODY, 4TH GENERATION Routine 10/18/2021 11:00 EST documented in this encounter Results * HIV 1/2 ANTIGEN AND ANTIBODY, 4TH GENERATION (10/18/2021 11:00 EST) HIV 1 and 2 Antibody/p24 Antigen, 4th Generation Negative Negative 10/22/2021 12:15 EST [facility] Comment:If acute HIV-1 infec tion is suspected in a high risk patient, submit plasma specimen for HIV-1 RNA quantitation test. Blood VENOUS BLOOD / Unknown 10/18/2021 11:00 EST 10/19/2021 16:44 EST Narrative [facility] - 10/22/2021 12:15 EST Fourth Generation assay performed on the Siemens Centaur XPT. us Provider Outr Resulting Lab IMMUNOLOGY AND SEROL OGY ORDERABLES Final Result [facility] [address] [place] [address] documented in this encounter Visit Diagnoses Not on filedocumented in this encounter
--- OUTSIDE RECORDS SUMMARY | 2024-10-06 15:48 | XMS_ITS | Encounter Summary ---
Author Organization [facility] Address [address] [place] [address] Care Team Providers Care Weigher And Charger Name Role Phone Unavailable Primary Care Provider Unavailabl e Encounter Details Date Type Department Care Team (Late st Contact Info) Description 03/17/2021 Lab Requisition [facility] Pathology & Laboratory Medicine - [facility] [address] [place] [address] Outr Resulting Lab, Provider Social History Tobacco [...] Priority Date/Time Associated Diagnosis Comments ZZCOVID-19 TEST [facility] PCR Today 03/16/2021 15:01 EDT COVID-19 TESTING Routine 03/16/2021 15:0 1 EDT documented in this encounter Results * COVID-19 TEST [facility] PCR (03/16/2021 15:01 EDT) Swab ENTIRE NASOPHARYNX / Unknown 03/16/2021 15:01 EDT 03/17/2021 21:21 EDT us Provider Outr Resulting Lab MICROBIOLOGY - GENER AL ORDERABLES Final Result [facility] [address] [place] [address] * COVID-19 TESTING (03/16/2021 15:01 EDT) COVID-19 rt-PCR Result Negative Negative 03/18/2021 10:55 EDT [facility] Comment: This test has not [...] clinical observations, patient history, and epidemiological information. Testing was performed using the ronny SARS-CoV-2 assay ([employer] on the Ronny 6800 System Performing Lab Ronny [address] [facility] 03/18/2021 10:55 EDT [facility] Swab 03/16/2021 15:0 1 EDT 03/17/2021 21:21 EDT us Provider Outr Resulting Lab MICROBIOLOGY - GENER AL ORDERABLES Final Result [facility] [address] [place] [address] documented in this encounter Visit Diagnoses Not on filedocumented in this encounter
--- OUTSIDE RECORDS SUMMARY | 2024-10-06 15:48 | XMS_ITS | Encounter Summary ---
Author Organization [facility] Address [facility] [place] [place] [address] Care Team Providers Care Dress Cutter Name Role Phone Matilde Ramirez MD Primary Care Provider [phone] Reason for Visit * Reason Comments Other ? umbilical hernia Encounter Details Date Type Department Care Team (Late st Contact Info) Description 11/28/2011 11:00 AM EDT Office [place] [address] Terry Loco III, MD [facility] [place] [address] Hernia, umbilical (Primary Dx) Discharge Disposition: Home Social History Tobacco Use Types Packs/Day Years Used Date Smoking Tobacco: Every Day Cigarettes Tobacco Cessation:Ready to Q uit: No Sex and Gender Information Value Date Recorded Sex Assigned at Not on file Gender Identity Not on file Sexual Orientation Not on file documented as of this encounter Last Filed Vital Signs Vital Sign Reading Time Taken Comments Blood Pressure 115/68 11/28/2011 11:12 AM EDT Pulse 67 11/28/2011 11:12 AM EDT Temperature 36.1 ??C (97 ??F) 11/28/2011 11:12 AM EDT Respiratory Rate 18 11/28/2011 11:12 AM EDT Oxygen Saturation 97% 11/28/2011 11:12 AM EDT Inhaled Oxygen Concentration - - Weight 83 kg (183 lb) 11/28/2011 11:12 AM EDT Height 172.7 cm (5' 8) 11/28/2011 11:12 AM EDT Body Mass Index 27.83 11/28/2011 11:12 AM EDT documented in this encounter Progress Notes * Terry Loco III, MD - 11/28/2011 3:51 PM EDT Copy: Matilde Ramirez M.D. Mr. Serrano is referred by Flip Ruth for evaluation of an umbilical hernia. In brief, this is a 30-year-old gentleman who was being evaluated in an outside system and practitioner complaining of significant and severe umbilical pain. He has had a known long history of umbilical hernia that is increasing in size and getting trapped and quite hard and dense and is actually pinching on a more consistent basis. He had visited an ER recently for his umbilical hernia, which was reduced, and has had good and bad days since then. Given that he is seeking more and more medical attention for this issue, he is here at this point to consider surgical repair. He has had no weight changes per se, no change in his bowel habits, no nausea or vomiting or other GI symptoms. His past medical history is significant for attention deficit disorder, history of depression, history of herpes in the past, no surgical history. He is on no current medications. He has no known drug allergies. Social History: He is a smoker. He does not drink. He is currently unemployed and on Disability because of his ADHD. He is with three children. He seems to be somewhat involved in their lives. He does have a girlfriend. Review of systems is otherwise unremarkable. Family history is significant for his mother's side for alcohol abuse as well as diabetes. He has five siblings, all of whom are healthy. On exam today, he does have a pulse of 70 and blood pressure of 118/65 otherwise alert, oriented, and in no acute distress. HEENT exam is unremarkable. Lungs are clear to auscultation. Cardiac has a regular S1 and S2 without murmur. Abdomen shows a quite obvious umbilical hernia that is reducible and a fascial defect of about 1.5 to 2 cm. With this reduced, there are active bowel sounds and no evidence of hepatosplenomegaly or other masses. Extremities show no rash or lesions . He does have multiple tattoos. Good palpable pulses and good capillary refill. Overall impression is umbilical hernia that is becoming increasingly painful and symptomatic. There is certainly an enlarged size and fascial defect that is of concern. To this end, I have given him our printed material; and we reviewed our role of mesh hernia repair and concepts of his having to take time off from any work he might do for appropriate healing. We discussed the risks of recurrence of the hernia with the possibility of chronic abdominal pain and the possibilities of bleeding and infection, which I think are small numbers but certainly real. He understands that we would plan to do this under a MAC anesthesia with light sedation and this is same-day surgery and that he will have to have someone come and pick him up from the surgery. He would like to get this done sooner than later so he can think about getting employment during the warmer months, spring and summer seasons, which he would like to do. To this end, consent was obtained, history and physical was performed, and we will arrange an operative date to fit into his calendar. documented in this encounter Plan of Treatment Not on file documented as of this encounter Visit Diagnoses Diagnosis Hernia, umbilical- Primary Umbilical hernia without mention of obstruction or gangrene documented in this encounter Care Teams Dress Cutter Relationship Specialty Start Date End Date Matilde Ramirez MD [address] [place] [address] PCP - General 11/19/11 12/18/11 documented as of this encounter
--- OUTSIDE RECORDS SUMMARY | 2024-10-06 15:48 | XMS_ITS | Encounter Summary ---
Author Organization [facility] Address [facility] [place] [address] Care Team Providers Care Alteration Manager Name Role Phone Matilde Ramirez MD Primary Care Provider Encounter Details Date Type Department Care Team (Late st Contact Info) Description 12/05/2011 8:58 AM EDT - 12/05/2011 10:26 AM EDT [place] [address] Carlos Enrique Beck III, MD [facility] [place] [address] REPAIR INITIAL INCISIONAL OR VENTRAL HERNIA REDUCIBLE (WRVU 11.92) Social History Tobacco Use Types Packs/Day Years Used Date Smoking Tobacco: Every Day Cigarettes 1 16 Tobacco Cessation:Ready to Q uit: No Sex and Gender Information Value Date Recorded Sex Assigned at Not on file Gender Identity Not on file Sexual Orientation Not on file documented as of this encounter Last Filed Vital Signs Vital Sign Reading Time Taken Comments Blood Pressure 114/67 12/05/2011 9:12 AM EDT Pulse 54 12/05/2011 9:12 AM EDT Temperature 36.4 ??C (97.5 ??F) 12/05/2011 9:12 AM ED T Respiratory Rate 16 12/05/2011 9:12 AM EDT Oxygen Saturation 97% 12/05/2011 9:12 AM EDT Inhaled Oxygen Concentration - - Weight 83 kg (182 lb 15.7 oz) 12/05/2011 9:12 AM EDT Height - - Body Mass Index 27.82 11/28/2011 11:12 AM EDT documented in this encounter Discharge Instructions * Discharge Instructions* Francesca Villasenor RN - 12/05/2011 12:18 PM EDT POST ANESTHESIA INSTRUCTIONS Go home, rest, use caution on stairs. Change positions slowly. Do not smoke if you are alone. Diet light to regular as tolerated today. If nausea occurs start with clear liquids and progress slowly. No driving, operating machinery, alcoholic beverages and no important decisions for 24 hours. Monitor IV site for signs and symptoms of infection: increasing redness, swelling, foul drainage, if occurs contact M.D. Patients who have had endotrachial tubes (this tube, used by anesthesia department, is passed down your throat after you are asleep, to ensure safe air passage during your operation). A sore throat is normal due to the tube. Cold liquids or soothing lozenges will help ease the discomfort. The generalized muscle aches are due to the medication given to you just before the tube is inserted. As the medication wears off, you may develop muscle soreness, which usually goes away in 12-24 hours. * Patient Instructions* Megan Hunt MD - 12/05/2011 10:17 AM EDT Instructions following Hernia Repair Wound Care: Keep dressings/Band-Aids on your incisions for the next 2 days. Do not get the dressings wet. If they become wet or soaked with drainage you may change them as needed. If there are piecesof white tape (steri-strips or butterflys) directly on the incision, please leave these in place until they fall off on their own. You may trim them back if the edges begin to peel. After 2 days remove all dressings (except steri-strips/butterflys) and leave the incisions open to the air. You may shower and let warm soapy water pass over the incisions. Do not scrub vigorously for the next 2-3 weeks. Do not soak your incision(s) under water for the next 2 weeks (i.e. soaking nereyda bath or swimming) as this may promote a wound infection. Your stitches will dissolve and do not need to be removed. Activity: No heavy lifting more than 10 pounds for the next 4 weeks, then you may gradually lift heavier objects as tolerated. Otherwise, activity as tolerated by your comfort level. Call Doctor for: Please call if you notice worsening redness or drainage from the incision(s), foul-smelling drainage from the incision, pain not controlled by pain medications, persistent nausea or vomiting, or for any fevers greater than 101.3 F. The number for questions is [phone] before 5 PM weekdays and [phone] after 5 PM and weekends. Pain Medication: No driving for 8 hours after any dose of Percocet. You should use ibuprofen (motrin, advil) first and then the Percocet if you continue to have pain. Be sure to take a stool softenerwhile taking narcotic pain medications. Follow-up: A follow-up appointment has been scheduled in General Surgery clinic on Friday 12/22 at 1030 in the morning. The appointment will be mailed to you. Please call [phone] (clinic number for appointments) to confirm the date and time of your appointment if you do not receive your apointment in 1 week. documented in this encounter Medications at Time of Discharge Medication Sig Dispensed Refills Start Date End Date OXYcodone-acetaminophen (PERCOCET) 5-325 mg per tablet Take 1 tablet by mouth every 4 hours as needed for Pain. 10 tablet 0 12/05/2011 07/15/2019 documented as of this encounter Progress Notes * Lyudmila High RN - 12/05/2011 12:50 PM EDT Up to BR by self. No c/o pain. documented in this encounter H&P Notes * Megan Hunt MD - 12/05/2011 10:14 AM EDT 24 hour interval history and physical exam: Akshat A MacNevins's condition unchanged since H&P originally performed. documented in this encounter Procedure Notes * Provider, Scanning - 12/06/2011 3:40 AM EDTAssociated Order(s): SCAN DOC: IMPLANTABLE DEVICES documented in this encounter Miscellaneous Notes * Miscellaneous - Provider, Scanning - 12/06/2011 3:47 AM EDT * Op Note - Carlos Enrique Beck III, MD - 12/05/2011 11:57 AM EDT [facility] [place] Patient Name: Akshat Serrano : [id number] MR#: [id number] Case Date: 12/05/2011 Surgeon: Surgeon(s) and Role: * CARLOS ENRIQUE BECK III, MD - Primary * MEGAN HUTN MD - Resident-Surgeon Conner Preoperative diagnosis: UMBILICAL/VENTRAL HERNIA Postoperative diagnosis: umbilical hernia Procedure(s): REPAIR INITIAL INCISIONAL OR VENTRAL HERNIA REDUCIBLE IMPLANT MESH FOR INCISIONAL OR VENTRAL HERNIA REPAIR General Estimated Blood Loss: 5 cc Drains: none Disposition: awakened from anesthesia, extubated and taken to the recovery room in a stable condition, having suffered no apparent untoward event. Condition: doing well without problems (Please see the Surgical Encounter Summary for any Implant and Specimen details pertinent to this patient.) HPI/Surgical Indications: enlarging and symptomatic ventral hernia Procedure Description: Operative Report: An increasingly symptomatic umbilical/ventral hernia. Operative Procedure: Ventral herniorrhaphy with plug mesh hernia repair. Attending Surgeon: Carlos Enrique Beck M.D. Research & Analytics Manager: Megan Hunt M.D. Operative Procedure: The patient was brought to Operating Room #20 and in the supine position was intubated without issue. After being prepped and draped, a time-out was observed and no disparities or concerns were raised. A supraumbilical curvilinear incision was made of about 2 cm in length, and the hernia sac was encountered. Using sharp and blunt dissection, the hernia sac was excised from the surrounding connective tissue and sharply taken off the umbilical skin. This was dissected down to the anterior rectus wall where the hernia was noted to be excentric to the umbilicus by about 1 cm or so. It was superior and to the patient's right of the umbilicus. The hernia was then reduced into the cavity. A fascial defect of about 1.5 cm was appreciated. Digital examination of the periumbilical area from the preperitoneal side demonstrated no true umbilical defect, no midline defect superior to the umbilicus. With this in mind, an extra-large Atrium plug mesh was then placed into this wound and allowed to flatten as the patient was allowed to Valsalva with endotracheal cough. With this done, the mesh was noted to be in place, and using a [id number] 0 PDS, the fascial defect was closed, incorporating some of the edges of the plug mesh to keep it in position. With this completed, the fascia was noted to be closed, and no further defects were appreciated. The subcutaneous layer was closed using 2-0 chromic, and the skin was closed using 4-0 Monocryl in an interrupted technique and Steri-Stripped. The patient tolerated the procedure well and was extubated and returned to the Recovery Room. * OR Attestation - Carlos Enrique Beck III, MD - 12/05/2011 11:57 AM EDT Attestation: Case Date: 12/05/2011 I was present and I participated during the entire procedure (does not need to include opening and closing). I will dictate. CARLOS ENRIQUE BECK III, MD 12/05/2011 * Brief Op Note - Carlos Enrique Beck III, MD - 12/05/2011 11:56 AM EDT Brief Operative Note Patient Name: Akshat Serrano : [id number] MR#: [id number] Case Date: 12/05/2011 Surgeon: Surgeon(s) and Role: * CARLOS ENRIQUE BECK III, MD - Primary * MEGAN HUNT MD - Resident-Surgeon Conner Preoperative diagnosis: UMBILICAL/VENTRAL HERNIA Postoperative diagnosis: umbilical hernia Procedure(s): REPAIR INITIAL INCISIONAL OR VENTRAL HERNIA REDUCIBLE IMPLANT MESH FOR INCISIONAL OR VENTRAL HERNIA REPAIR Anesthesia: General Estimated Blood Loss: 5 cc Drains: none Disposition: awakened from anesthesia, extubated and taken to the recovery room in a stable condition, having suffered no apparent untoward event. Condition: doing well without problems (Please see the Surgical Encounter Summary for any Implant and Specimen details pertinent to this patient.) * Miscellaneous - Provider, Scanning - 12/05/2011 10:24 AM EDT documented in this encounter Plan of Treatment Not on file documented as of this encounter Procedures Procedure Name Priority Date/Time Associated Diagnosis Comments IMPLANTABLE DEVICES SCAN 12/06/2011 3:40 AM EDT IMPLANT MESH FOR INCISIONAL OR VENTRAL HERNIA REPAIR (WRVU 4.88) Yes 12/05/2011 10:18 AM EDT umbilical hernia REPAIR INITIAL INCISIONAL OR VENTRAL HERNIA REDUCIBLE (WRVU 11.92) Yes 12/05/2011 10:18 AM EDT umbilical hernia documented in this encounter Results * SCAN DOC: IMPLANTABLE DEVICES (12/06/2011 3:40 AM EDT) Narrative 12/06/2011 3:40 AM EDT Procedure Note Provider, Scanning - 12/06/2011 3:40 AM EDT Scanning Provider MEDIA MGR SCAN EXT O RDR/RSLT documented in this encounter Visit Diagnoses Not on filedocumented in this encounter Administered Medications Inactive Administered Medications - up to 3 most recent administrations Medication Order MAR Action Action Date Dose Rate Site BUpivacaine (PF) (MARCAINE) 0.25 % (2.5 mg/mL) injection ONCE PRN, Starting on Donna 12/05/11 at 1128, Until Donna 12/05/11 at 1537, Intra-Operative (Intra-Procedure), Routine Given 12/05/2011 11:28 AM EDT 75 mg 19- Surgical Site ceFAZolin (ANCEF) 2g in dextrose 5% 100mL 2 g, Intravenous, ONCE, 1 dose, On Donna 12/05/11 at 0930, Administer over 30 Minutes, Redose after 4 hours., Day of Surgery (Day of Procedure), Indication for (Active or Suspected): Prophylaxis Given 12/05/2011 10:40 AM EDT 2 g lidocaine (PF) (XYLOCAINE) 10 mg/mL (1 %) injection ONCE PRN, Starting on Donna 4/12 at 1052, Until Donna 12 at 1537, Intra-Operative (Intra-Procedure), Routine Given 12/05/2011 10:52 AM EDT 10 mg 19- Surgical Site sodium bicarbonate 8.4 % IV solution ONCE PRN, Starting on Donna 412 at 1052, Until Donna 412 at 1537, Intra-Operative (Intra-Procedure), Routine Given 12/05/2011 10:52 AM EDT 3 mLs 19- Surgical Site documented in this encounter Active and Recently Administered Medications Times are shown in EDT. Scheduled Medication Order 12/03/2011 12/04/2011 12/05/2011 ceFAZolin (ANCEF) 2g in dextrose 5% 100mL (COMPLETED) 2 g, Intravenous, ONCE, 1 dose, On Donna 12/05/11 at 0930, Administer over 30 Minutes, Redose after 4 hours., Day of Surgery (Day of Procedure), Indication for (Active or Suspected): Prophylaxis 0930 (Due)1040 (Give n - Provider: Yoli Singh CRNA) PRN Medication Order 12/03/2011 12/04/2011 12/05/2011 BUpivacaine (PF) (MARCAINE) 0.25 % (2.5 mg/mL) injection (CANCELED) ONCE PRN, Starting on Donna 12/05/11 at 1128, Until Donna 12 at 1537, Intra-Operative (Intra-Procedure), Routine 1128 (Given - Provid er: Carlos Enrique Beck III, MD) lidocaine (PF) (XYLOCAINE) 10 mg/mL (1 %) injection (CANCELED) ONCE PRN, Starting on Donna 412 at 1052, Until Donna 412 at 1537, Intra-Operative (Intra-Procedure), Routine 1052 (Given - Provid er: Megan Hunt MD - Comment: mixed with 8.4% NaHCO3) sodium bicarbonate 8.4 % IV solution (CANCELED) ONCE PRN, Starting on Donna 12/05/11 at 1052, Until Donna 12/05/11 at 1537, Intra-Operative (Intra-Procedure), Routine 1052 (Given - Provid er: Megan Hunt MD - Comment: 3cc of 8.4% diluted into 30cc 1% lidocaine) documented in this encounter Care Teams Alteration Manager Relationship Specialty Start Date End Date Matilde Ramirez MD [address] [place] [address] PCP - General 11/19/11 12/18/11 documented as of this encounter
--- OUTSIDE RECORDS SUMMARY | 2024-10-06 15:48 | XMS_ITS | Referral Summary ---
Author Organization [facility] Address [address] [place] [address] Care Team Providers Care Liability Claims Examiner Name Role Phone Unavailable Primary Care Provider Unavailabl e Social History Tobacco Use Types Packs/Day Years Used Date Smoking Tobacco: Never Assessed Sex and Gender Information Value Date Recorded Sex Assigned at Not on file Legal Sex Male 14:02 EST Gender Identity Not on file Sexual Orientation Not on file Plan of Treatment Not on file Procedures Procedure Name Priority Date/Time Associated Diagnosis Comments HEPATITIS C AB W REFLEX TO HCV RNA BY PCR Routine 10/18/2021 11:00 EST from Last 3 Months or Most Recently Relevant to Health Maintenance Results * HEPATITIS C AB W REFLEX TO HCV RNA BY PCR (10/18/2021 11:00 EST) Hep C Antibody Negative Negative 10/22/2021 10:52 EST [facility] Blood VENOUS BLOOD / Unknown 10/18/2021 11:00 EST 10/19/2021 16:44 EST us Provider Outr Resulting Lab CHEMISTRY & BLOOD GA S ORDERABLES Final Result [facility] [address] [place] [phone] from Last 3 Months or Most Recently Relevant to Health Maintenance
--- OUTSIDE RECORDS SUMMARY | 2024-10-06 15:48 | XMS_ITS | Encounter Summary ---
Author Organization [facility] [place] [address] Care Team Providers Care Monument Erector Name Role Phone Matilde Ramirez MD Primary Care Provider [phone] Reason for Visit * Reason Comments Other Encounter Details Date Type Department Care Team (Late st Contact Info) Description 12/09/2011 Telephone [place] [phone] Tabby Godoy RN Other Social History Tobacco Use Types Packs/Day Years Used Date Smoking Tobacco: Every Day Cigarettes 1 16 Alcohol Use Standard Drinks/Week Comments No 0 (1 standard drink = 0.6 oz pur e alcohol) Sex and Gender Information Value Date Recorded Sex Assigned at Not on file Gender Identity Not on file Sexual Orientation Not on file documented as of this encounter Miscellaneous Notes * Telephone Encounter - Tabby Godoy RN - 12/09/2011 3:26 PM EDT Mr Serrano is s/p umbilical hernia repair with mesh on 12/05/[address] Loco. He calls today from the [facility] emergency room, stating that he went there d/t abdominal pain after running out of percocet. He reports that he is waiting right now for a CT scan. I asked Mr Serrano to keep us updatedand/or to have the ED physician who is treating him to contact Dr Loco if they have any questions or concerns. He agrees with the plan. documented in this encounter Plan of Treatment Not on file documented as of this encounter Visit Diagnoses Not on filedocumented in this encounter Care Teams Monument Erector Relationship Specialty Start Date End Date Matilde Ramirez MD [address] [place] [address] PCP - General 11/19/11 12/18/11 documented as of this encounter
--- OUTSIDE RECORDS SUMMARY | 2024-10-06 15:48 | XMS_ITS | Encounter Summary ---
Author Organization [facility] Address [facility] [place] [place] [address] Care Team Providers Care Firearms Model Maker Name Role Phone Matilde Ramirez MD Primary Care Provider Encounter Details Date Type Department Care Team (Latest Contact Info) Description 12/05/2011 8:50 AM EDT - 12/05/2011 1:15 PM EDT Hospital Encounter [place] [address] Carlos Enrique Beck III, MD [facility] [place] [address] Discharge Disposition: Home Social History Tobacco Use [...] Sign Reading Time Taken Comments Blood Pressure 113/51 12/05/2011 12:37 PM EDT Pulse 67 12/05/2011 12:37 PM EDT Temperature 36 ??C (96.8 ??F) 12/05/2011 12:00 PM EDT Respiratory Rate 16 12/05/2011 12:37 PM EDT Oxygen Saturation 96% 12/05/2011 12:37 PM EDT Inhaled Oxygen Concentration - - [...] 101.3 F. The number for questions is [phone] before 5 PM weekdays and [phone] after 5 PM and weekends. Pain Medication: [...] will be mailed to you. Please call [phone] (clinic number for appointments) to confirm the [...] hour interval history and physical exam: Akshat Serrano's condition unchanged since H&P originally performed. documented in this encounter Procedure Notes * Provider, Scanning - 12/06/2011 3:40 AM EDTAssociated Order(s): SCAN DOC: IMPLANTABLE DEVICES documented in this encounter Miscellaneous Notes * Miscellaneous - Provider, Scanning - 12/06/2011 3:47 AM EDT * Op Note - Carlos Enrique Beck III, MD - 12/05/2011 11:57 AM EDT [facility] Operative Note Patient Name: Akshat Serrano : [id number] MR#: [id number] Case Date: 12/05/2011 Surgeon: Surgeon(s) and Role: [...] repair. Attending Surgeon: Carlos Enrique Beck M.D. Assisted Living Administrator: Megan Hunt M.D. Operative Procedure: The patient [...] to be in place, and using a [id number] 0 PDS, the fascial defect was closed, [...] Operative Note Patient Name: Akshat Serrano : [id number] MR#: [id number] Case Date: 12/05/2011 Surgeon: Surgeon(s) and Role: [...] Diagnoses Not on filedocumented in this encounter Active and Recently Administered [...] injection (CANCELED) ONCE PRN, Starting on Donna 4 at 1128, Until Donna 4/01/10 at 1537, Intra-Operative (Intra-Procedure), Routine 1128 (Given [...] solution (CANCELED) ONCE PRN, Starting on Donna 4//12 at 1052, Until Donna 4/12 at 1537, Intra-Operative (Intra-Procedure), Routine 1052 (Given - Provid er: Megan Hunt MD - Comment: 3cc of 8.4% diluted into 30cc 1% lidocaine) documented in this encounter Care Teams Firearms Model Maker Relationship Specialty Start Date End Date Matilde Ramirez MD [address] [place] [address] PCP - General 11/19/11 12/18/11 documented as of this encounter
--- OUTSIDE RECORDS SUMMARY | 2024-10-06 15:48 | XMS_ITS | Encounter Summary ---
Author Organization [facility] Address [address] [place] [address] Care Team Providers Care Shuttle Threader Name Role Phone Unavailable Primary Care Provider Unavailabl e Encounter Details Date Type Department Care Team (Late st Contact Info) Description 10/19/2021 Lab Requisition [facility] Pathology & Laboratory Medicine - [address] [address] Outr Resulting Lab, Provider Social History Tobacco [...] RNA BY PCR Routine 10/18/2021 11:00 EST HEPATITIS B SURFACE ANTIGEN Routine 10/18/2021 11:00 EST documented in this encounter Results * HEPATITIS B SURFACE ANTIGEN (10/18/2021 11:00 EST) Hep B Surface Ag Negative Negative 10/22/2021 11:21 EST [facility] Blood VENOUS BLOOD / Unknown 10/18/2021 11:00 EST 10/19/2021 16:44 EST us Provider Outr Resulting Lab CHEMISTRY & BLOOD GA S ORDERABLES Final Result [facility] [address] [place] [address] * HEPATITIS C AB W REFLEX TO HCV RNA BY PCR (10/18/2021 11:00 EST) Hep C Antibody Negative Negative 10/22/2021 10:52 EST [facility] Blood VENOUS BLOOD / Unknown 10/18/2021 11:00 EST 10/19/2021 16:44 EST us Provider Outr Resulting Lab CHEMISTRY & BLOOD GA S ORDERABLES Final Result [facility] [address] [place] [address] documented in this encounter Visit Diagnoses Not on filedocumented in this encounter
--- NOTE | 2024-10-06 17:43 | W.ED.GENAD ---
Discharge Plan Disposition Patient Disposition: Home Condition: Stable Discharge Details Clinical Impression: Methadone maintenance therapy patient Primary Care Provider: Moses Junior ED Provider: Tulio Toribio Home Meds and New Rx's Prescriptions: Continued methadone 10 mg/5 mL solution 24 mg PO DAILY Patient Comments: Per Dr. De La Rosa, dose confirmed Discharge Instructions Instructions: Methadone, Substance Misuse Treatment Additional Instructions: You were seen in the emergency department for your missed appointment at the [facility] for methadone, we have provided you your 24 mg daily dose. Please follow-up with the clinic tomorrow for your normal daily dosing. Please return to the emergency department for any emergent concerns. Referrals: Moses Junior [Primary Care Provider] - Discharge Data Discharge Date/Time-TO BE ENTERED AT DEPARTURE: 10/06/24 17:56 HPI General Date/Time Provider Initiated Documentation: 10/06/24 15:22. HPI Narrative: 43 year-old male presents to ED today by POV/ambulating with a chief complaint of request for medication adminstration due to presenting late to [facility] for QD methadone administration with onset today. Quality described as no medical complaint, no radiation to nausea/vomiting, chest pain, shortness of breath, URI. Severity is described as mild. Palliating factors include nothing specific attempted. Provoking factors include nothing specific. Patient not anticoagulated. Related Data Home Medications ?Medication ?Instructions ?Recorded ?Confirmed methadone 10 mg/5 mL oral solution 24 mg PO DAILY 10/05/22 10/06/24 Allergies Allergy/AdvReac Type Severity Reaction Status Date / Time No Known Allergies Allergy Unverified 10/06/24 15:28 General Stated Complaint: DrugWithdr/MAT TIMOTHY: 4 Review of Systems All systems reviewed & are unremarkable except as noted in HPI and below Exam Narrative Exam Narrative: GENERAL APPEARANCE: Well-nourished, non-toxic, awake and alert, atraumatic, no acute distress. SKIN: Warm, pink, dry, intact, without rashes/lesions/ulcerations. HEAD: Normocephalic, atraumatic, normal hair distribution for gender/age. EYES: Normal conjunctiva, no exudates on lids/lashes. ENT: Nares patent, no circumoral cyanosis, no facial swelling NECK: Supple, trachea midline, painless cervical ROM. LUNGS/CHEST: Non-labored respirations, normal A/P diameter, symmetrical expansion, no chest wall deformity HEART (CV/PV): No peripheral edema, no JVD. ABDOMEN: Soft, non-distended, no guarding. MSK: Normal ROM, no swelling/deformity to bilateral UEs or LEs, moving all extremities without weakness, no cyanosis, spine midline without tenderness, normal curvature. NEURO: Mental Status AAOx4 - alert to person, place, time, events No facial droop, no forehead involvement. Motor: No focal weakness - strength 5/5 in bilateral UEs and LEs, proximal and distal, symmetric. Sensory: sensation intact to light touch globally. Gait normal: patient ambulated without ataxia into ED room. PSYCH: dysthymic, cooperative, unpleasant, appropriate speech Course Vital Signs Vital signs: Vital Signs Temperature 35.9 C L 10/06/24 15:25 Pulse 97 H 10/06/24 15:25 Respiratory Rate 16 10/06/24 15:25 Blood Pressure 161/84 H 10/06/24 15:25 Pulse Oximetry 100 10/06/24 15:25 Temperature 35.9 C L 10/06/24 15:25 Pulse 97 H 10/06/24 15:25 Respiratory Rate 16 10/06/24 15:25 Blood Pressure 161/84 H 10/06/24 15:25 Pulse Oximetry 100 10/06/24 15:25 Pain Level 0 10/06/24 15:25 Medical Decision Making This dictation utilizes israp-tn-cjry dictation software and may contain unedited grammatical errors. 43 year-old male presents to ED today by POV/ambulating with a chief complaint of request for medication adminstration due to presenting late to [facility] for QD methadone administration with onset today. Quality described as no medical complaint, no radiation to nausea/vomiting, chest pain, shortness of breath, URI. Severity is described as mild. Palliating factors include nothing specific attempted. Provoking factors include nothing specific. Patients' medical history: opioid use disorder. Family and social history: denies IVDU, denies ETOH use. Pertinent exam findings / vital signs include benign cardiopulmonary status, NAD, benign abdomen, nontoxic. Differential / pathologies of concern include request for medication administration. Diagnostic studies of: -none. Interventions of: -provided daily dose QD methadone- 24 mg. ED Course/Assessment/Plan: 43-year-old male without medical complaint presented late to the [facility] for methadone administration, we did provide his daily dose he exhibited no signs of active withdrawal or opioid use. I counseled him to follow-up with [facility] clinic for his daily methadone use and proper utilization of emergency department. Findings not consistent with active withdrawal, severe opioid use disorder. Disposition of methadone maintenance therapy patient. Patient verbalized understanding of the plan and return to ED criteria and engaged in shared decision making. Medical Records Medical records reviewed: Yes I reviewed the patient's medical records. Quality:[facility] Health Related Social Needs: Health related social needs details unable to obtain [facility] All Active Problems (Updated 10/06/24 @ 17:43 by DON Farrell) Methadone maintenance therapy patient (Acute) Thoughts of self harm (Acute) Abscess of axilla, left (Acute) Acute bronchitis (Acute) Open wound of left hand (Acute) Rectal bleeding (Acute) Streptococcal pneumonia (Acute) Respiratory failure, acute (Acute) Discharge planning issues (Acute) DVT prophylaxis (Acute) INDIRA (acute kidney injury) (Acute) Right leg pain (Acute) Aspiration pneumonia (Acute) sputum cx with strep pneumonia Toxic metabolic encephalopathy (Acute) ADHD (Chronic) Alcohol abuse (Chronic) Narcotic abuse (Chronic) Cocaine abuse (Chronic) Surgical History H/O umbilical hernia repair Family History Other Family history unobtainable due to patient's condition Social History Smoking/Tobacco Use Status: Current every day Tobacco Type: cigarettes Smoking risk assessment performed?: Yes Alcohol Intake: current Alcohol Intake frequency: a few times a week Drug use: Daily Substance use type: former substance user and marijuana Do you feel safe at home: Yes Do you feel safe in your relationship?: Yes
[2024-10-06] MEDS: Methadone Liquid 10 MG/ML 24 MG PO (17:53)
[2024-10-06 17:56] VITALS: BP 132/85; PULSE 82; RESP 16; TEMP 36.9; O2SAT 100
== END 2024-10-06 17:56 | disposition home or self-care (01) ==
PROVIDERS: Emergency Provider Physician Assistant; PCP Student in an Organized Health Care Education/Training Program
DX: F11.20 Opioid dependence, uncomplicated (principal); F17.210 Nicotine dependence, cigarettes, uncomplicated
CPT/HCPCS: 99283

== ENCOUNTER 2025-02-13 10:39 | Emergency (ER) | payer MEDICAID, SELFPAY ==
[2025-02-13] VITALS (13 sets, daily range): BP systolic 122–132; BP diastolic 77–88; PULSE 45–90; RESP 14–32; TEMP 36.6; O2SAT 94–99
--- NOTE | 2025-02-13 10:48 | W.ED.GENAD ---
Discharge Plan Disposition Patient Disposition: Home Discharge Details Clinical Impression: Discoloration of skin of flank resembling ecchymosis Primary Care Provider: Moses Junior ED Provider: Antolin Nicolas Home Meds and New Rx's Prescriptions: New ondansetron 4 mg tablet,disintegrating 4 mg PO BID 5 Days Qty: 10 0RF Continued methadone 10 mg/5 mL solution 24 mg PO DAILY Patient Comments: Per Dr. De La Rosa, dose confirmed Discharge Instructions Additional Instructions: Received in the emergency department for your fatigue. Your blood work showed no sign of any damage to your heart. Your kidneys are working well. You are receiving a prescription for nausea medicine that she should take as directed. As we discussed please return to the emergency department if you develop chest pain weakness nausea or vomiting. Otherwise please follow-up with your primary care provider as needed next week. Discharge Data Discharge Date/Time-TO BE ENTERED AT DEPARTURE: 02/13/25 13:40 HPI General Date/Time Provider Initiated Documentation: 02/13/25 10:48. HPI Narrative: MDM This is a normothermic and not tachycardic 44-year-old male with general malaise for which he will undergo laboratory assessment. Patient does have a bruise on his right flank. He denies history of falling. The area is mildly tender. Given soft nontender abdomen my suspicion is low for intra-abdominal hemorrhage. Will obtain CK CBC to assess for rhabdomyolysis and anemia respectively. I do not feel the patient requires CT scan of his abdomen at this point I am given the absence of any traumatic history. Given general fatigue will obtain ECG and troponin. I consider whether or not to obtain a GC and chlamydia probe. Patient denies abnormal urethral discharge so my suspicion is low for sexually transmitted infection. In the absence of dysuria frequency I did not obtain a urinalysis. No pain out of proportion to suggest necrotizing soft tissue infection. No trauma to suggest unequal breath sounds make my suspicion low for pneumothorax. I considered sepsis however the patient is neither tachycardic nor hypotensive. His had any ticks that he is removed from himself. He has no signs of erythema migrans defer doxycycline at this point in time. 11:52 AM CBC lacks anemia thrombocytopenia and leukocytosis. Reassuring CK within normal limits. Reassuring troponin within normal limits. Comprehensive metabolic panel showing very mild hyperglycemia but no INDIRA no anion gap and normal bicarbonate??not consistent with DKA. Reassuring normal lipase. 2:40 PM Patient had 2 reassuring troponins. Patient was not tremulous nor tachycardic to suggest withdrawal. I was planning on verifying the patient's methadone dose before providing it to him. Charge nurse Cindy had called the [facility] clinic media production manager provider. I also called. I had not yet received a call back. Patient requested discharge. He requested clonidine. I advised that I was not going to prescribe him clonidine but I offered him ondansetron for nausea. We discussed that he should return to the emergency department for chest pain in the troponins did not stop syncope. He understood his return indications and he was discharged with empiric trial of expectant outpatient management. HPI The patient presents for evaluation of a suspected urinary tract infection, fatigue, and medication management. He reports persistent fatigue, which he attributes to a potential urinary tract infection. He also notes the presence of a bruise on his right kidney, although he does not recall any specific trauma or injury to the area. He is uncertain about the possibility of a tick bite but mentions a suspicious bradley on his left forehead. He reports no fevers, respiratory distress, shortness of breath, or chest pain. He has not experienced any episodes of vomiting or abdominal pain. He has no history of renal calculi. He reports no dysuria or abnormal penile discharge. He has no history of sexually transmitted infections and reports no new sexual partners. He is currently sexually active with one female partner and uses condoms consistently. He is currently in the process of tapering off methadone, with his last dose being 6 mg yesterday. He plans to reduce his dose to 5 mg in the near future. He reports no alcohol consumption. Exam General: Well-appearing in no acute distress speaking in complete sentences. Head: Normocephalic, atraumatic. Eye: Extraocular eye movements intact. No conjunctival injection. No scleral icterus. Ear, nose, mouth, throat: Grossly normal inspection. Normal voice, handling secretions normally. Neck: Trachea midline. No midline cervical spinal tenderness. Cardiovascular: Well-perfused distal extremities. Regular rate and rhythm. Respiratory: Nonlabored respiration. Clear lungs bilaterally. Gastrointestinal: Nondistended abdomen. Soft. Nontender. Back: Small approximately 3 x 3 cm right-sided ecchymosis overlying the right flank. Patient. No midline thoracic or lumbar spinal tenderness. No step-offs or deformities. Musculoskeletal: No edema. Moving all 4 extremities spontaneously. Skin: Normal for age and race, grossly normal temperature and turgor. No acute rash. Neurologic: Alert and appropriate, no apparent acute deficits. GCS 15. Related Data Home Medications ?Medication ?Instructions ?Recorded ?Confirmed methadone 10 mg/5 mL oral solution 24 mg PO DAILY 10/05/22 02/13/25 ondansetron 4 mg disintegrating 4 mg PO BID 5 days #10 tabs 02/13/25 tablet Previous Rx's ?Medication ?Instructions ?Recorded ondansetron 4 mg disintegrating 4 mg PO BID 5 days #10 tabs 02/13/25 tablet Allergies Allergy/AdvReac Type Severity Reaction Status Date / Time No Known Allergies Allergy Unverified 02/13/25 10:49 General TIMOTHY: 4 Medical Decision Making Quality:SDOH Health Related Social Needs: Health related social needs details unable to obtain [facility] All Active Problems (Updated 02/13/25 @ 13:35 by Antolin Nicolas MD) Discoloration of skin of flank resembling ecchymosis (Acute) Abscess of axilla, left (Acute) Acute bronchitis (Acute) Open wound of left hand (Acute) Rectal bleeding (Acute) Streptococcal pneumonia (Acute) Respiratory failure, acute (Acute) Discharge planning issues (Acute) DVT prophylaxis (Acute) INDIRA (acute kidney injury) (Acute) Right leg pain (Acute) Aspiration pneumonia (Acute) sputum cx with strep pneumonia Toxic metabolic encephalopathy (Acute) ADHD (Chronic) Alcohol abuse (Chronic) Narcotic abuse (Chronic) Cocaine abuse (Chronic) Surgical History H/O umbilical hernia repair Family History Other Family history unobtainable due to patient's condition Social History Smoking/Tobacco Use Status: Current every day Tobacco Type: cigarettes Smoking risk assessment performed?: Yes Alcohol Intake: current Alcohol Intake frequency: a few times a week Drug use: Daily Substance use type: former substance user and marijuana Do you feel safe at home: Yes Do you feel safe in your relationship?: Yes
--- NOTE | 2025-02-13 11:00 | RT.EKG_ITS ---
APPROVED REPORT Exam: Resting ECG Reason for Exam: Chest pain Patient Location: E HR:63 bpm ECG Measurements Heart Rate 63 AXIS WA 148 P 2 QRSd 109 QRS -13 QT 408 T 43 QTc 418 Conclusion Sinus rhythm...normal P axis, V-rate 60- 99 No Occlusion W[place]
[2025-02-13 11:26] LABS: Abs Immature Grans 0.05 10^3/uL (0.0-0.06); Absolute Basophil Count 0.06 10^3/uL (0.0-0.2); Absolute Eosinophil Count 0.03 10^3/uL (0.0-0.7); Absolute Lymphocyte Count 1.56 10^3/uL (1.2-3.4); Absolute Monocyte Count 0.56 10^3/uL (0.1-0.8); Absolute Neutrophil Count 7.41 10^3/uL (1.2-6.7); Basophils % 0.6 %; Eosinophils % 0.3 %; HCT 44.1 % (40.0-50.0); HGB 14.8 g/dL (13.5-17.5); Immature Grans % 0.5 %; Lymphocytes % 16.1 %; MCH 27.9 pg (27.0-33.0); MCHC 33.6 % (32.0-36.0); MCV 83 fL (80-95); MPV 9.5 fL (8.0-11.0); Monocytes % 5.8 %; Neutrophils % 76.7 %; Platelet Count 233 10^3/uL (130-400); RBC 5.31 10^6/uL (4.36-5.78); RDW 12.8 % (11.8-14.1); RDW-SD 38.6 fL; WBC 9.67 10^3/uL (4.4-10.8)
[2025-02-13 11:46] LABS: ALT 24 U/L (16-63); AST 13 U/L (15-37); Albumin 3.5 g/dL (3.4-5.0); Alkaline Phosphatase 66 U/L (46-116); Anion Gap 8.9 mmol/L (3-11); BUN 11 mg/dL (7-18); Bilirubin, Total 0.4 mg/dL (0.2-1.0); CO2 27.1 mmol/L (21.0-32.0); CREATININE 0.9 mg/dL (0.70-1.30); Calcium 8.6 mg/dL (8.5-10.1); Chloride 107 mmol/L (98-107); Creatine Kinase 45 U/L (39-308); Estimated GFR 107.33 (mL/min/1.73m2); Glucose 112 mg/dL (74-106); Lipase 27 U/L (<78); Potassium 3.8 mmol/L (3.5-5.1); Sodium 143 mmol/L (136-145); Total Protein 6.5 g/dL (6.4-8.2); Troponin I 6 ng/L (<or=76)
[2025-02-13 12:39] LABS: Troponin I 7 ng/L (<or=76)
== END 2025-02-13 13:40 | disposition home or self-care (01) ==
PROVIDERS: Emergency Provider Emergency Medicine; PCP Student in an Organized Health Care Education/Training Program
DX: R53.81 Other malaise (principal); R23.3 Spontaneous ecchymoses; F11.20 Opioid dependence, uncomplicated; F17.210 Nicotine dependence, cigarettes, uncomplicated
CPT/HCPCS: 80053; 82550; 83690; 93005; 99284; 84484; 85025; 93010